=== PATIENT | female | born 1970 | race Hispanic/Latino ===

== ENCOUNTER 2017-07-26 16:41 | Emergency (ER) | payer MEDICARE ==
[~2017-07-26] VITALS: Ht 167.6 cm; Wt 81.6 kg
--- OUTSIDE RECORDS SUMMARY | 2017-07-26 16:44 | XMS REPORT ---
Author [facility] [place] Address Unknown Phone Unavailable Care Team Providers Care Behavioral Health Therapist Name Role Phone Unavailable Unavailable Problems This patient has no known problems. Allergies, Adverse Reactions, Alerts This patient has no known allergies or adverse reactions. Medications This patient has no known medications. Encounters Start Date/Time End Date/Time Encounter Type Admission Type Attending [facility] Facility Care Department Encounter ID 2017-08-04 00:00:00 2017-08-04 00:00:00 Outpatient [facility] [id number] 2017-05-26 09:26:28 2017-05-26 09:26:28 Outpatient [facility] [id number] 2017-03-03 08:28:53 2017-03-03 08:28:53 Outpatient [facility] [id number] 2016-12-09 11:25:09 2016-12-09 11:25:09 Outpatient [facility] [id number] 2016-11-18 00:00:00 2016-11-18 00:00:00 Outpatient [facility] [id number] 2016-09-23 10:20:10 2016-09-23 10:20:10 Outpatient [facility] [id number]
--- OUTSIDE RECORDS SUMMARY | 2017-07-26 16:44 | XMS REPORT ---
Author Author Admin, Lucile Organization [facility] Address Unknown Phone Unavailable Allergies, Adverse Reactions, Alerts Allergy Name Reaction Description Start Date Severity Status Provider No Known Allergies Yesenia Salcido MA Conditions or Problems Problem Name Problem Code Onset Date Status Entry Date Provider Comment Standard Description Annotate Headache 784.0 Active Allyson Arita MD Headache Mammogram, Screening V76.12 Active Sriram Clarke MD Other screening mammogram Arthritis 716.90 Active Sriram Clarke MD Arthropathy, unspecified, site unspecified Rash 782.1 Active Loida Abraham MD Rash and other nonspecific skin eruption Abdominal pain 789.00 Active Loida Abraham MD Abdominal pain, unspecified site Routine gynecological exam V72.3 Active Loida Abraham MD Special investigations and examinations - Gynecological examination Vitamin D deficiency 268.9 Active Loida Abrahma MD Unspecified vitamin D deficiency Positive rheumatoid factor 796.4 Active Loida Abraham MD Other abnormal clinical findings Joint pain 719.40 Active Loida Abraham MD Pain in joint, site unspecified Knee joint pain, right 719.46 Active Loida Abraham MD Pain in joint involving lower leg Muscle spasm of neck 728.85 Active Sriram Clarke MD Spasm of muscle Pain, abdominal, right lower quadrant 789.03 Active Milton Perez [employer] Abdominal pain, right lower quadrant Family stress V61.9 Active Allyson Arita MD Unspecified family circumstance ANNUAL EXAM V70.0 Active Allyson Arita MD Routine general medical examination at a health care facility FAMILY PLANNING V25.09 Active Allyson Arita MD Encounter for other general counseling and advice on contraceptive management GERD 530.81 Active Allyson Arita MD Esophageal reflux MENOMETRORRHAGIA 626.2 Active Allyson Arita MD Excessive or frequent menstruation RHINOSINUSITIS, ALLERGIC 477.9 Active Allyson Arita MD Allergic rhinitis, cause unspecified ASCUS PAP 795.01 Active Fern Dietrich M.D. Papanicolaou smear of cervix with atypical squamous cells of undetermined significance (ASC-US) HYPERLIPIDEMIA 272.4 Active Fern Dietrich M.D. Other and unspecified hyperlipidemia OBESITY 278.00 Active Fern Dietrich M.D. Obesity , unspecified Incisional hernia, abdominal 553.21 Active Loida Abraham MD Incisional hernia without mention of obstruction or gangrene Anxiety 300.00 04/2009 Active Sriram Clarke MD Anxiety state, unspecified Dysuria ICD-788.1 Inactive Sriram Clarke MD UTI ICD-599.0 Inactive Sriram Clarke MD SCREENING, BREAST CANCER, UNSPECIFIED ICD-V76.10 Inactive Sriram Clarke MD ABNORMAL LIVER ENZYMES ICD-794.8 Inactive Sriram Clarke MD HYPOKALEMIA ICD-276.8 Inactive Sriram Clarke MD 2016 WELL WOMAN V72.31 Inactive Fern Murra Kenneth.Neena Routine gynecological examination WELL WOMAN ICD-V72.31 Inactive Fern Murra M.D. WELL WOMAN V72.31 Inactive Fern Murra M.DKirill Routine gynecological examination WELL WOMAN ICD-V72.31 Inactive Fern Murra M.D. BACK PAIN ICD-724.5 Inactive Fern Murra M.D. CONTRACEPTION ICD-V25.09 Inactive Fern Murra M.D. WELL WOMAN ICD-V72.31 Inactive Fern Murra M.D. HERNIA, UMBILICAL 553.1 Inactive Fern Latishaa Kenneth.Neena Umbilical hernia without mention of obstruction or gangrene ABDOMINAL/PELVIC SWELLING MASS/LUMP UNSPEC SITE ICD-789.30 05/17 Inactive Fern Latishaa M.D. HYPERTENSION ICD-401.1 Inactive Sriram Clarke MD ANXIETY 300.00 04/2009 Inactive Fern Kaur Ma Anxiety state, unspecified HYPERLIPIDEMIA ICD-272.4 Inactive Fern Murra M.D. 10/31 HYPERTENSION ICD-401.1 Inactive Fern Murra M.D. Dysuria 788.1 Resolved Sriram Clarke MD Dysuria UTI 599.0 Resolved Sriram Clarke MD Urinary tract infection, site not specified SCREENING, BREAST CANCER, UNSPECIFIED V76.10 Resolved Sriram Clarke MD Breast screening, unspecified ABNORMAL LIVER ENZYMES 794.8 Resolved Sriram Clarke MD Nonspecific abnormal results of function study of liver HYPOKALEMIA 276.8 Resolved Sriram Clarke MD Hypopotassemia BACK PAIN 724.5 Resolved Fern Dietrich M.D. Backache, unspecified CONTRACEPTION V25.09 Resolved Fern Dietrich M.D. Encounter for other general counseling and advice on contraceptive management WELL WOMAN V72.31 Resolved Fern Dietrich M.D. Routine gynecological examination ABDOMINAL/PELVIC SWELLING MASS/LUMP UNSPEC SITE 789.30 Resolved Fern Dietrich M.D. Abdominal or pelvic swelling, mass, or lump, unspecified site HYPERTENSION 401.1 Resolved Sriram Clarke MD Benign essential hypertension HYPERLIPIDEMIA 272.4 04/2009 Resolved Fern Dietrich M.D. Other and unspecified hyperlipidemia HYPERTENSION 401.1 04/2009 Resolved Fern Dietrich M.D. Benign essential hypertension Medication List Medication Instructions Start Date Stop Date Generic Name NDC Status Provider Patient Instruction ATENOLOL 25 MG ORAL TABLET 1 by mouth every day for blood pressure - togolese label ATENOLOL 98734981873 Active Allyson Arita MD Active BENTYL 10 MG ORAL CAPSULE 1 by mouth 4 times a day as needed for stomach cramps DICYCLOMINE HCL 64522176248 Active Allyson Arita MD Active CULTURELLE ORAL CAPSULE one Po daily for digestion LACTOBACILLUS RHAMNOSUS (GG) 94206476580 Tatiana Arita MD Active CYCLOBENZAPRINE HCL 10 MG ORAL TABLET 1/2 By Mouth QHS As Needed for muscle tension. togolese label CYCLOBENZAPRINE HCL 22432082280 Tatiana Arita MD Active VITAMIN D (ERGOCALCIFEROL) 90065 UNIT ORAL CAPSULE One tablet by mouth once per week for 8 weeks ERGOCALCIFEROL 11966042447 Active Sriram Clarke MD Active TRAZODONE HCL 50 MG ORAL TABLET 1-2 by mouth nightly at bedtime as needed for sleep TRAZODONE HCL 50 MG ORAL TABLET 325981 TRAZODONE HCL Inactive CIPRO 250 MG ORAL TABLET 1 by mouth twice a day for 5 days 12/04 CIPRO 250 MG ORAL TABLET 683042 CIPROFLOXACIN HCL Inactive PRAVASTATIN SODIUM 20 MG ORAL TABLET 1 tab By Mouth QHS PRAVASTATIN SODIUM 20 MG ORAL TABLET 515837 PRAVASTATIN SODIUM Inactive MELOXICAM 15 MG ORAL TABLET 1 tab By Mouth daily As Needed for pain. MELOXICAM 15 MG ORAL TABLET 809973 MELOXICAM Inactive CYCLOBENZAPRINE HCL 5 MG ORAL TABLET 1 tablet at night as needed for muscle spasm CYCLOBENZAPRINE HCL 5 MG ORAL TABLET 578424 CYCLOBENZAPRINE HCL Inactive NAPROXEN 500 MG ORAL TABLET 1 by mouth twice a day as needed for pain and inflammation NAPROXEN 500 MG ORAL TABLET 380355 NAPROXEN Inactive ZOLOFT 25 MG ORAL TABLET 1 by mouth nightly at bedtime ZOLOFT 25 MG ORAL TABLET 031342 SERTRALINE HCL Inactive JUNEL 04/23 1-20 MG-MCG ORAL TABLET one By Mouth daily JUNEL 1/20 1-20 MG-MCG ORAL TABLET 3984099 NORETHINDRONE ACET-ETHINYL EST Inactive AZITHROMYCIN 250 MG ORAL TABLET 2 tablets by mouth on day one then one tablet by mouth each day for a total of 5 days AZITHROMYCIN 250 MG ORAL TABLET 863861 AZITHROMYCIN Inactive NASACORT ALLERGY 24HR 55 MCG/ACT NASAL AEROSOL 2 sprays in each nostril daily NASACORT ALLERGY 24HR 55 MCG/ACT NASAL AEROSOL 9118162 TRIAMCINOLONE ACETONIDE Inactive LOVASTATIN 10 MG ORAL TABLET 1 by mouth every night LOVASTATIN 10 MG ORAL TABLET 732987 LOVASTATIN Inactive NEXIUM 40 MG ORAL CAPSULE DELAYED RELEASE 1 by mouth daily 06/06 NEXIUM 40 MG ORAL CAPSULE DELAYED RELEASE 828510 ESOMEPRAZOLE MAGNESIUM Inactive LOPID 600 MG ORAL TABLET 1 by mouth twice a day LOPID 600 MG ORAL TABLET 974049 GEMFIBROZIL Inactive NAPROSYN 500 MG ORAL TABLET 1 by mouth twice a day As Needed pain. NAPROSYN 500 MG ORAL TABLET 162185 NAPROXEN Inactive PRINZIDE 10-12.5 MG TABS 1 By Mouth qd PRINZIDE 10- 12.5 MG TABS LISINOPRIL-HYDROCHLOROTHIAZIDE Inactive AMITRIPTYLINE HCL 10 MG ORAL TABLET 1 by mouth nightly at bedtime AMITRIPTYLINE HCL 10 MG ORAL TABLET 578130 AMITRIPTYLINE HCL Inactive PRINZIDE 10-12.5 MG TABS By Mouth Every Day PRINZIDE 10-12.5 MG TABS LISINOPRIL-HYDROCHLOROTHIAZIDE Inactive TRAZODONE HCL 50 MG ORAL TABLET 1-2 by mouth nightly at bedtime as needed for sleep TRAZODONE HCL 24985443543 No Longer Active Allyson Arita MD Active CIPRO 250 MG ORAL TABLET 1 by mouth twice a day for 5 days 12/04 CIPROFLOXACIN HCL 32923606633 No Longer Active Loida Abraham MD Active PRAVASTATIN SODIUM 20 MG ORAL TABLET 1 tab By Mouth [facility] PRAVASTATIN SODIUM 15116329207 No Longer Active Sriram Clarke MD Active MELOXICAM 15 MG ORAL TABLET 1 tab By Mouth daily As Needed for pain. MELOXICAM 72685123637 No Longer Active Allyson Arita MD Active CYCLOBENZAPRINE HCL 5 MG ORAL TABLET 1 tablet at night as needed for muscle spasm CYCLOBENZAPRINE HCL 01994604949 No Longer Active Loida Abraham MD Active NAPROXEN 500 MG ORAL TABLET 1 by mouth twice a day as needed for pain and inflammation NAPROXEN 83715279995 No Longer Active Loida Abraham MD Active ZOLOFT 25 MG ORAL TABLET 1 by mouth nightly at bedtime SERTRALINE HCL 38164333570 No Longer Active Loida Abraham MD Active JUNEL 04/23 1-20 MG-MCG ORAL TABLET one By Mouth daily NORETHINDRONE ACET-ETHINYL EST 09538216872 No Longer Active Loida Abraham MD Active AZITHROMYCIN 250 MG ORAL TABLET 2 tablets by mouth on day one then one tablet by mouth each day for a total of 5 days AZITHROMYCIN 60336419909 No Longer Active Allyson Arita MD Active NASACORT ALLERGY 24HR 55 MCG/ACT NASAL AEROSOL 2 sprays in each nostril daily TRIAMCINOLONE ACETONIDE 33981910183 No Longer Active Loida Abraham MD Active LOVASTATIN 10 MG ORAL TABLET 1 by mouth every night LOVASTATIN 52537915666 No Longer Active Allyson Arita MD Active NEXIUM 40 MG ORAL CAPSULE DELAYED RELEASE 1 by mouth daily 06/06 ESOMEPRAZOLE MAGNESIUM 65561610304 No Longer Active Allyson Arita MD Active LOPID 600 MG ORAL TABLET 1 by mouth twice a day GEMFIBROZIL 63663038494 No Longer Active Fern Dietrich M.D. Active NAPROSYN 500 MG ORAL TABLET 1 by mouth twice a day As Needed pain. NAPROXEN 36911449302 No Longer Active Fern Dietrich M.D. Active PRINZIDE 10-12.5 MG TABS 1 By Mouth qd LISINOPRIL- HYDROCHLOROTHIAZIDE No Longer Active Allyson Arita MD Active AMITRIPTYLINE HCL 10 MG ORAL TABLET 1 by mouth nightly at bedtime AMITRIPTYLINE HCL 65127630282 No Longer Active Fern Dietrich M.D. Active PRINZIDE 10-12.5 MG TABS By Mouth Every Day LISINOPRIL-HYDROCHLOROTHIAZIDE 87832707421 No Longer Active Fern Dietrich M.D. Active Advance Directives Directive Description Start Date DISCUSSED - NO DECISION MADE Immunizations Vaccine Administration Date Value Standard Description dT (Diphtheria and Tetanus) immunization for children, #1 transcribed from official record Td(adult) unspecified formulation Vital Signs Date Name Value Unit Range Description blood pressure, diastolic 90 mm[Hg] BP neal blood pressure, systolic 138 mm[Hg] BP sys height E&M 65 [in_us] Bdy height pulse rate E&M 99 /min Heart rate temperature E&M 98.2 [degF] Body temperature weight E&M 199.13 [lb_av] Weight Measured blood pressure, diastolic 88 mm[Hg] BP neal blood pressure, systolic 127 mm[Hg] BP sys height E&M 65 [in_us] Bdy height pulse rate E&M 77 /min Heart rate temperature E&M 98.2 [degF] Body temperature weight E&M 209 [lb_av] Weight Measured blood pressure, diastolic 94 mm[Hg] BP neal blood pressure, systolic 134 mm[Hg] BP sys height E&M 65 [in_us] Bdy height pulse rate E&M 86 /min Heart rate temperature E&M 99.6 [degF] Body temperature weight E&M 203 [lb_av] Weight Measured Diagnostic Results Date Name Value Unit Range Description Lab Report: Comp. Metabolic Panel (14), Lipid Panel, Hepatitis Panel (4) - Serology hepatitis B virus core antibody, IgM, PT, serum, quantitative Negative Negative Lab Report: Comp. Metabolic Panel (14), Rheumatoid Arthritis Factor, C-R ... - Chemistry c-reactive protein, quantitative, serum 3.5 mg/L 0.0-4.9 Lab Report: CBC With Differential/Platelet, Lipid Panel, Vitamin D, 25-H ... - Serology hepatitis C antibody, serum <0.1 0.0-0.9 Lab Report: CBC With Differential/Platelet, Comp. Metabolic Panel (14), ... - Urinalysis epithelial cells, urine 0-10 /[LPF] 0 - 10 Lab Report: CBC With Differential/Platelet, Comp. Metabolic Panel (14), ... - Hematology lymphocyte count, blood, automated 2.7 X10E3/UL 10*3/mm3 0.7- 3.1 Lab Report: CBC With Differential/Platelet, Comp. Metabolic Panel (14), ... - Urinalysis pH, urine, semiquantitative 6.0 5.0-7.5 Lab Report: CBC With Differential/Platelet, Comp. Metabolic Panel (14), ... - Chemistry urea nitrogen, blood 13 mg/dL 6-24 Lab Report: CBC With Differential/Platelet, Comp. Metabolic Panel (14), ... - Urinalysis bilirubin, urine Negative Negative Lab Report: Comp. Metabolic Panel (14), Rheumatoid Arthritis Factor, C-R ... - Serology rheumatoid factor 16.1 [iU]/mL 0.0-13.9 Lab Report: CBC With Differential/Platelet, Comp. Metabolic Panel (14), ... - Chemistry creatinine, serum 0.65 mg/dL 0.57-1.00 lipase, serum 25 U/L [iU]/L 0-59 chloride, serum 98 mmol/L 96-106 Lab Report: CBC With Differential/Platelet, Comp. Metabolic Panel (14), ... - Hematology mean corpuscular volume, RBC 89 fL 79-97 Lab Report: CBC With Differential/Platelet, Lipid Panel, Vitamin D, 25-H ... - Chemistry triglyceride, serum, fasting 384 mg/dL 0-149 Lab Report: CBC With Differential/Platelet, Comp. Metabolic Panel (14), ... - Hematology erythrocyte (RBC) count 4.52 X10E6/UL 10*6/mm3 3.77-5.28 Lab Report: CBC With Differential/Platelet, Comp. Metabolic Panel (14), ... - Chemistry Estimated Glomerular Filtration Rate (calc) 106 mL/min/1.73m2 > 59 Lab Report: CBC With Differential/Platelet, Comp. Metabolic Panel (14), ... - Hematology platelet count 293 X10E3/UL 10*3/mm3 150-379 Lab Report: CBC With Differential/Platelet, Comp. Metabolic Panel (14), ... - Urinalysis appearance, urine Clear Clear Lab Report: TSH+Free T4, CBC With Differential/Platelet, Comp. Metabolic ... - Serology HIV-1/HIV-2 Ab, serum Non Reactive Non Reactive Lab Report: CBC With Differential/Platelet, Comp. Metabolic Panel (14), ... - Hematology red blood cell distribution width 13.3 % 12.3-15.4 Lab Report: CBC With Differential/Platelet, Comp. Metabolic Panel (14), ... - Chemistry protein, total, serum 7.6 g/dL 6.0-8.5 Lab Report: CBC With Differential/Platelet, Lipid Panel, Vitamin D, 25-H ... - Chemistry HDL cholesterol, serum 44 mg/dL >39 Lab Report: UA/M w/rflx Culture, Routine, Microscopic Examination, UA/M ... - Urinalysis mucus on urinalysis Present Not Estab. Lab Report: CBC With Differential/Platelet, Comp. Metabolic Panel (14), ... - Chemistry specific gravity, body fluid 1.014 1.005-1.030 Lab Report: CBC With Differential/Platelet, Comp. Metabolic Panel (14), ... - Urinalysis glucose, urine, semiquantitative Negative Negative Lab Report: CBC With Differential/Platelet, Comp. Metabolic Panel (14), ... - Chemistry albumin/globulin ratio, serum 1.3 1.2-2.2 Lab Report: CBC With Differential/Platelet, Comp. Metabolic Panel (14), ... - Hematology eosinophils as percent of blood leukocytes 3 % Not Estab. Lab Report: CBC With Differential/Platelet, Comp. Metabolic Panel (14), ... - Chemistry Absolute Neutrophils 5.3 X10E3/UL 10*3/uL 1.4-7.0 Lab Report: CBC With Differential/Platelet, Comp. Metabolic Panel (14), ... - Hematology basophil count, absolute 0.0 x10E3/uL 0.0-0.2 Lab Report: CBC With Differential/Platelet, Lipid Panel, Vitamin D, 25-H ... - Chemistry hepatitis B surface antigen Negative Negative Lab Report: CBC With Differential/Platelet, Comp. Metabolic Panel (14), ... - Chemistry alanine aminotransferase (SGPT), serum 27 U/L 0-32 Lab Report: CMP14+LP+2AC+CBC/D/Plt - Chemistry LDL/HDL ratio, serum 3.2 ratio units 0.0-3.2 Lab Report: CBC With Differential/Platelet, Lipid Panel, Vitamin D, 25-H ... - Chemistry LDL cholesterol, serum 109 mg/dL 0-99 Office Visit: Acute Visit dysuira, HLP, perimenopause - Urinalysis nitrite, urine, semiquantitative negative Lab Report: CBC With Differential/Platelet, Comp. Metabolic Panel (14), ... - Hematology monocytes as percent of blood leukocytes 7 % Not Estab. Lab Report: Pap IG, rfx HPV ASCU, HPV, high-risk - Lab Human Papillomavirus test result Negative Negative Lab Report: Urine Culture, Routine, Result - Urinalysis urine culture Escherichia coli Lab Report: CBC With Differential/Platelet, Lipid Panel, Vitamin D, 25-H ... - Chemistry cholesterol, serum 230 mg/dL 100-199 Lab Report: CBC With Differential/Platelet, Comp. Metabolic Panel (14), ... - Basic Occult Blood, urine 1+ Negative Lab Report: CBC With Differential/Platelet, Comp. Metabolic Panel (14), ... - Hematology mean corpuscular hemoglobin concentration, RBC 33.2 G/DL % 31.5- 35.7 Lab Report: CBC With Differential/Platelet, Comp. Metabolic Panel (14), ... - Urinalysis leukocyte esterase, urine, by dipstick Negative Negative Lab Report: CBC With Differential/Platelet, Comp. Metabolic Panel (14), ... - Hematology hemoglobin, blood 13.3 g/dL 11.1-15.9 Lab Report: CBC With Differential/Platelet, Comp. Metabolic Panel (14), ... - Urinalysis urinalysis, microscopic examination See below: Lab Report: CBC With Differential/Platelet, Comp. Metabolic Panel (14), ... - Hematology leukocyte count, blood 8.9 X10E3/UL 10*3/mm3 3.4-10.8 Lab Report: CBC With Differential/Platelet, Comp. Metabolic Panel (14), ... - Urinalysis protein, urine, semiquantitative (dipstick) Negative Negative/ Trace Lab Report: CBC With Differential/Platelet, Comp. Metabolic Panel (14), ... - Hematology hematocrit, blood 40.1 % 34.0-46.6 Lab Report: Comp. Metabolic Panel (14), Lipid Panel, Hepatitis Panel (4) - Serology hepatitis A antibody, IgM Negative Negative Lab Report: CBC With Differential/Platelet, Comp. Metabolic Panel (14), ... - Chemistry globulin, serum 3.3 1.5-4.5 Lab Report: CBC With Differential/Platelet, Comp. Metabolic Panel (14), ... - Urinalysis bacteria, urine microscopy Few None seen/Few Lab Report: CBC With Differential/Platelet, Lipid Panel, Vitamin D, 25-H ... - Chemistry vitamin D 25-hydroxy, serum 16.7 ng/mL 30.0-100.0 Lab Report: CBC With Differential/Platelet, Comp. Metabolic Panel (14), ... - Chemistry thyroid stimulating hormone, serum 2.000 u[iU]/mL 0.450-4.500 albumin, serum 4.3 g/dL 3.5-5.5 Internal Correspondence: Pre-Visit Planning 12/22/12 - Other List of providers caring for patient Jayna Camacho MD, Fern Dietrich MD, Ghazala Garcia RN,Melani Quiroga MA, Melani Hair MA, Fartun Meek MA,Lewis Ramires MA, Sepideh Jimenez CTA Lab Report: CBC With Differential/Platelet, Lipid Panel, Vitamin D, 25-H ... - Chemistry very low density lipoproteins 77 mg/dL 5-40 Lab Report: CMP14+LP+2AC+CBC/D/Plt - Chemistry uric acid, serum 4.3 mg/dL 2.5-7.1 Lab Report: CBC With Differential/Platelet, Comp. Metabolic Panel (14), ... - Urinalysis urobilinogen, urine, semiquantitative (dipstick) 0.2 0.2-1.0 Lab Report: CBC With Differential/Platelet, Comp. Metabolic Panel (14), ... - Chemistry calcium, serum 9.7 mg/dL 8.7-10.2 Lab Report: CBC With Differential/Platelet, Comp. Metabolic Panel (14), ... - Hematology basophils as percent of blood leukocytes 0 % Not Estab. Lab Report: TSH+Free T4, CBC With Differential/Platelet, Comp. Metabolic ... - Chemistry thyroxine, serum, free 1.11 ng/dL 0.82-1.77 Lab Report: CBC With Differential/Platelet, Comp. Metabolic Panel (14), ... - Hematology monocyte count, blood, automated 0.6 X10E3/UL 10*3/uL 0.1-0.9 Lab Report: CBC With Differential/Platelet, Comp. Metabolic Panel (14), ... - Chemistry immature granulocytes, percentage of total cells, blood 0 % Not Estab. urea nitrogen/creatinine ratio, serum 20 9-23 Lab Report: CBC With Differential/Platelet, Comp. Metabolic Panel (14), ... - Genetics/fertility eGFR if 122 mL/min/1.73m2 >59 Lab Report: CBC With Differential/Platelet, Comp. Metabolic Panel (14), ... - Urinalysis WBC urine on microscopy 0-5 /hpf {Cells}/[HPF] 0 - 5 Lab Report: CBC With Differential/Platelet, Comp. Metabolic Panel (14), ... - Hematology lymphocytes as percent of blood leukocytes 30 % Not Estab. Lab Report: CBC With Differential/Platelet, Comp. Metabolic Panel (14), ... - Chemistry RBC, Urine 0-2 /hpf /[HPF] 0 - 2 carbon dioxide, venous blood 26 mmol/L 18-29 Lab Report: CBC With Differential/Platelet, Lipid Panel, Vitamin D, 25-H ... - Serology rapid plasma reagin antibody, serum Non Reactive Non Reactive Lab Report: Ct, Ng, Trich vag by FRANCHESCA - Lab chlamydia DNA probe Negative Negative Lab Report: Ct, Ng, Trich vag by FRANCHESCA - Microbiology Neisseria gonorrhoeae DNA probe Negative Negative Lab Report: CBC With Differential/Platelet, Comp. Metabolic Panel (14), ... - Chemistry sodium, serum 141 mmol/L 134-144 Lab Report: Comp. Metabolic Panel (14), Hemoglobin A1c, Written Authoriz ... - Chemistry hemoglobin A1C, blood, as % of total hemoglobin 5.6 % 4.8-5.6 Office Visit: Acute Visit dysuira, HLP, perimenopause - Chemistry beta HCG, urine, semiquantitative negative Lab Report: CMP14+LP+2AC+CBC/D/Plt - Chemistry phosphate, serum 3.1 mg/dL 2.5-4.5 Lab Report: CBC With Differential/Platelet, Comp. Metabolic Panel (14), ... - Chemistry alkaline phosphatase, serum 66 U/L 39-117 Lab Report: CBC With Differential/Platelet, Comp. Metabolic Panel (14), ... - Urinalysis ketones, urine, by test strip Negative Negative Lab Report: CBC With Differential/Platelet, Comp. Metabolic Panel (14), ... - Hematology Eosinophil Absolute Count 0.3 X10E3/UL 10*3/uL 0.0-0.4 Office Visit: Acute Visit dysuira, HLP, perimenopause - Urinalysis specific gravity, urine 1.005 Lab Report: CBC With Differential/Platelet, Comp. Metabolic Panel (14), ... - Hematology mean corpuscular hemoglobin, RBC 29.4 pg 26.6-33.0 Lab Report: CBC With Differential/Platelet, Comp. Metabolic Panel (14), ... - Chemistry bilirubin, serum, total <0.2 mg/dL mg/dL 0.0-1.2 Lab Report: CBC With Differential/Platelet, Comp. Metabolic Panel (14), ... - Hematology neutrophils as percent of blood leukocytes 60 % Not Estab. Lab Report: CBC With Differential/Platelet, Comp. Metabolic Panel (14), ... - Chemistry nitrate, urine Negative Negative Office Visit: Acute Visit dysuira, HLP, perimenopause - Urinalysis blood in urine (hemoglobin) by dipstick 3+ Lab Report: CBC With Differential/Platelet, Comp. Metabolic Panel (14), ... - Chemistry blood glucose, random 111 mg/dL 65-99 potassium, serum 4.0 mmol/L 3.5-5.2 aspartate aminotransferase (SGOT), serum 27 U/L 0-40 Lab Report: CBC With Differential/Platelet, Comp. Metabolic Panel (14), ... - Urinalysis urine color Yellow Yellow Lab Report: H. 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 Patient Exp Problem - 61313 Allyson Arita MD CPT-22762 [facility] 12:09:00 CDT Est Patient Detailed - 03661 Sriram Clarke MD CPT- 29809 [facility] 22:34:05 CDT Est Patient Exp Problem - 09711 Loida Abraham MD CPT-60666 [facility] 14:12:41 CDT Est Patient Exp Problem - 78803 Loida Abraham MD CPT-01758 [facility] 11:32:32 CDT Est Patient Detailed - 02306 Loida Abraham MD CPT-49035 [facility] 16:53:44 [employer]ERS SALES REPRESENTATIVE Est Patient Detailed - 64794 Loida Abraham MD CPT-40123 [facility] 17:05:19 [employer]ERS SALES REPRESENTATIVE Est Patient Exp Problem - 43447 Sriram Clarke MD CPT- 10273 [facility] 11:36:07 CDT Ofc Vst, Est Level III Milton Perez [employer] CPT-55119 [facility] 16:48:51 CDT Est Patient Exp Problem - 30848 Allyson Arita MD CPT-45409 [facility] 13:26:48 CDT Est Patient Exp Problem - 35589 Allyson Arita MD CPT-70009 [facility] 13:38:54 CDT Est Patient Exp Problem - 45541 Allyson Arita MD CPT-72883 [facility] 14:40:20 CDT Ofc Vst, Est Level II Fern Dietrich M.D. CPT-74540 [facility] 11:06:03 CDT Ofc Vst, Est Level III Fern Dietrich M.D. CPT-71717 [facility] 15:00:45 CDT Ofc Vst, Est Level IV Fern Dietrich M.D. CPT-50483 [facility] 12:39:17 [employer]ERS SALES REPRESENTATIVE Ofc Vst, Est Level II Fern Dietrich M.D. CPT-32516 [facility] 14:59:27 CDT Ofc Vst, Est Level III Fern Dietrich M.D. CPT-13018 [facility] 15:49:08 CDT Ofc Vst, Est Level IV Fern Dietrich M.D. CPT-85547 [facility] 15:12:48 [employer]ERS SALES REPRESENTATIVE Ofc Vst, Est Level III Fern Dietrich M.D. CPT-22871 [facility] 16:03:04 [employer]ERS SALES REPRESENTATIVE Ofc Vst, Est Level III Fern Dietrich M.D. CPT-97866 [facility] 15:26:43 CONTAINERS SALES REPRESENTATIVE Ofc Vst, New Level II Fern Dietrich M.D. CPT-53748 [facility] 15:21:13 CONTAINERS SALES REPRESENTATIVE New Patient Detailed - [id number] Fern Dietrich M.D. CPT- 43400 [facility] Procedures Code Procedure Name Date Entry Date Standard Description CPT-HE001 Health Education/Supportive Counseling 09:09:57 CDT CPT-34877 Urinalysis - - In House 08:43:37 CDT CPT-72878 Handling of specimen for transfer 08:43:36 CDT CPT-77991 Venipuncture 08:43:36 CDT CPT-63856 Est Patient Well Exam (40 - 64 Yrs) - 67567 08:43:32 CDT CPT-86134 Xray - Hand - InHouse 09:50:24 CDT CPT-90862 Xray - Hand - InHouse 09:51:12 CDT CPT-91818 Urinalysis - - In House 11:31:27 CDT CPT-97405 Urinalysis - Dip only - In House 11:05:33 CDT CPT-77377 Est Patient Well Exam (40 - 64 Yrs) - 79408 15:51:57 CONTAINERS SALES REPRESENTATIVE CPT-30225 Xray - Knee - 3 Views - InHouse 14:59:40 CONTAINERS SALES REPRESENTATIVE CPT-40687 Urinalysis - - In House 11:59:23 CDT CPT-71421 Urinalysis - Dip only - In House 11:59:22 CDT CPT-S4993 Oral Contraceptive pills, one cycle/ECP 13:38:54 CDT CPT-79586 Est Patient Well Exam (40 - 64 Yrs) - 85469 20:44:16 CONTAINERS SALES REPRESENTATIVE CPT-90420 Est Patient Well Exam (40 - 64 Yrs) - 49869 13:22:45 CONTAINERS SALES REPRESENTATIVE CPT-66425 Urinalysis - Dip only - In House 13:22:45 CONTAINERS SALES REPRESENTATIVE CPT-50573 Urinalysis - - In House 13:22:45 CONTAINERS SALES REPRESENTATIVE
[2017-07-26 18:10] VITALS: BP 140/81
== END 2017-07-26 18:20 | disposition home or self-care (01) ==
LOC: FSED 16:41
DX: J20.9 Acute bronchitis, unspecified (principal); J01.00 Acute maxillary sinusitis, unspecified; I10 Essential (primary) hypertension
CPT/HCPCS: 87400; 99283

== ENCOUNTER → 2017-11-28 | Outpatient (CLI) | payer MEDICARE ==
--- NOTE | 2017-11-28 08:50 | Diagnostic Imaging Report ---
PROCEDURE:US LIVER COMPARISON:CT abdomen and pelvis 08/29/2009. INDICATIONS:Elevated Liver Enzymes TECHNIQUE: Steven-scale and color doppler transverse and longitudinal images of the right upper quadrant of the abdomen were obtained. FINDINGS: Liver: 17.3 cm in length in the right mid-clavicular line. Normal parenchymal echogenicity. No masses. Main portal vein: 1.2 cm in caliber. Hepatopedal flow. Gallbladder: Surgically removed. Common Bile Duct: 0.3 cm in caliber. Right kidney: 10 cm in length. Normal renal cortical echogenicity. No solid masses or hydronephrosis. Pancreas: The visualized portions are unremarkable. Inferior vena cava: Patent Aorta: Non-aneurysmal Ascites: None in the right upper quadrant of the abdomen. CONCLUSION: Mild hepatomegaly without focal mass. Status post cholecystectomy. Dictated by: Jacoby Gallo M.D. on 11/28/2017 at 8:56 Electronically approved by: Jacoby Gallo M.D. on 11/28/2017 at 8:56
== END ==
LOC: US 07:31
PROVIDERS: ATTEND Family Medicine
DX: R74.8 Abnormal levels of other serum enzymes (principal)
CPT/HCPCS: 76705

== ENCOUNTER 2018-01-30 20:56 | Emergency (ER) | payer MEDICARE ==
[~2018-01-30] VITALS: Ht 167.6 cm; Wt 81.6 kg
--- OUTSIDE RECORDS SUMMARY | 2018-01-30 20:59 | XMS REPORT ---
Author Author Adela Cabral Organization [employer] Address Unknown Phone Unavailable Care Team Providers Care Interior Assemblies Developer Prover Name Role Phone Adela Cabral CP Unavailable Allergies, Adverse Reactions, Alerts Substance Reaction Event Type N.K.D.A. Info Not Available Non Drug Allergy Problems Problem Type Condition Code Onset Dates Condition Status Problem Umbilical hernia without obstruction and without gangrene K42.9 Active Problem Pain in joints of right hand M25.541 Active Problem Essential hypertension I10 Active Problem Generalized abdominal pain R10.84 Active Assessment Generalized abdominal pain R10.84 Active Medications Medication Code System Code Instructions Start Date End Date Status Dosage Nexium ND 08219779088 20 MG Orally Once a day Active 1 capsule Digestive Health Probiotic [facility] 54300981583 - Orally Active not defined Cyclobenzaprine HCl ND 61441323250 10 MG Orally as needed for muscle pain Active 1/2 tablet as needed Dicyclomine HCl ND 82725850519 10 MG Orally Four times a day Active 2 capsules Results Name Result Date Reference Range Unit Abnormality Flag Hemoglobin A1c ( 064075) [facility] ----Hemoglobin A1c 5.5 20170804 4.8-5.6 % [facility] panel (CMP14+LP+CBC/D/Plt+TSH) ----Cholesterol, Total 221 20170804 100-199 mg/dL H ----Triglycerides 233 20170804 0-149 mg/dL H ----HDL Cholesterol 47 20170804 >39 mg/dL ----VLDL Cholesterol V[place] 47 20170804 5-40 mg/dL H ----Hemoglobin 12.9 20170804 11.1-15.9 g/dL ----eGFR If NonAfricn Am 107 20170804 >59 mL/min/1.73 ----Hematocrit 39.2 17461392 34.0-46.6 % ----eGFR If Africn Am 123 20170804 >59 mL/min/1.73 ----BUN 10 20170804 6-24 mg/dL ----Creatinine 0.62 93405529 0.57-1.00 mg/dL ----LDL Cholesterol Calc 127 20170804 0-99 mg/dL H ----Glucose 97 20170804 65-99 mg/dL ----TSH 2.590 20170804 0.450-4.500 uIU/mL ----WBC 6.2 94671369 3.4-10.8 x10E3/uL ----RBC 4.30 06076773 3.77-5.28 x10E6/uL ----Sodium 142 20964016 134-144 mmol/L ----BUN/Creatinine Ratio 16 20170804 9-23 ----Chloride 104 92062708 96-106 mmol/L ----Immature Grans (Abs) 0.0 01936182 0.0-0.1 x10E3/uL ----Potassium 4.2 48223484 3.5-5.2 mmol/L ----Immature Granulocytes 0 78374591 Not Estab. % ----Baso (Absolute) 0.0 56379328 0.0-0.2 x10E3/uL ----Eos (Absolute) 0.2 78751130 0.0-0.4 x10E3/uL ----Monocytes(Absolute) 0.5 15260633 0.1-0.9 x10E3/uL ----Lymphs (Absolute) 2.0 64971269 0.7-3.1 x10E3/uL ----Neutrophils (Absolute) 3.6 12375401 1.4-7.0 x10E3/uL ----RDW 13.5 66458144 12.3-15.4 % ----Platelets 283 60258638 150-379 x10E3/uL ----MCH 30.0 20170804 26.6-33.0 pg ----MCHC 32.9 20170804 31.5-35.7 g/dL ----Calcium 8.7 20170804 8.7-10.2 mg/dL ----MCV 91 20170804 79-97 fL ----Protein, Total 7.4 20170804 6.0-8.5 g/dL ----Carbon Dioxide, Total 23 20170804 18-29 mmol/L ----A/G Ratio 1.2 20170804 1.2-2.2 ----Bilirubin, Total 0.3 20170804 0.0-1.2 mg/dL ----Basos 0 20170804 Not Estab. % ----Albumin 4.1 20170804 3.5-5.5 g/dL ----Globulin, Total 3.3 20170804 1.5-4.5 g/dL ----Monocytes 7 20170804 Not Estab. % ----ALT (SGPT) 29 20170804 0-32 IU/L ----Eos 3 20170804 Not Estab. % ----Neutrophils 58 20170804 Not Estab. % ----Alkaline Phosphatase 54 20170804 39-117 IU/L ----Lymphs 32 20170804 Not Estab. % ----AST (SGOT) 24 20170804 0-40 IU/L Summary Purpose [employer] Submission
--- OUTSIDE RECORDS SUMMARY | 2018-01-30 20:59 | XMS REPORT ---
Author [facility] Address Unknown Phone Unavailable Care Team Providers Care Case Resource Manager Name Role Phone KATRIN TOTH Unavailable Unavailable Problems This patient has no known problems. Allergies, Adverse Reactions, Alerts This patient has no known allergies or adverse reactions. Medications This patient has no known medications. Encounters Start Date/Time End Date/Time Encounter Type Admission Type Attending [facility] Care Facility Care Department Encounter ID 2018-04-13 00:00:00 2018-04-13 00:00:00 Outpatient [facility] [id number] 2018-01-19 08:12:21 2018-01-19 08:12:21 Outpatient [facility] [id number] 2017-10-27 08:15:56 2017-10-27 08:15:56 Outpatient [facility] [id number] 2017-08-04 08:31:04 2017-08-04 08:31:04 Outpatient [facility] [id number] 2017-05-26 09:26:28 2017-05-26 09:26:28 Outpatient [facility] [id number] 2017-03-03 08:28:53 2017-03-03 08:28:53 Outpatient [facility] [id number] 2016-12-09 11:25:09 2016-12-09 11:25:09 Outpatient [facility] [id number] 2016-11-18 00:00:00 2016-11-18 00:00:00 Outpatient [facility] [id number] 2016-09-23 10:20:10 2016-09-23 10:20:10 Outpatient [facility] [id number] Results Test Description Test Time Test Comments Text Results Atomic Results Result Comments US LIVER 2017-11-28 08:56:00 [place] [address] Patient Name: VERONICA MURRELL MR #: [id number] : 1970 Age/Sex: 47/F Req #: [id number] [facility] Physician: Ordered by: KATRIN TOTH MD, MD Report #: [id number] Location: Room/Bed: Procedure: [id number] US/US LIVER Exam Date: Exam Time: REPORT STATUS: Signed PROCEDURE: US LIVER COMPARISON: CT abdomen and pelvis 08/29/2009. INDICATIONS: Elevated Liver Enzymes TECHNIQUE: Steven-scale and color doppler transverse and longitudinal images of the right upper quadrant of the abdomen were obtained. FINDINGS: Liver: 17.3 cm in length in the right mid-clavicular line. Normal parenchymal echogenicity. No masses. Main portal vein: 1.2 cm in caliber. Hepatopedal flow. Gallbladder: Surgically removed. Common Bile Duct: 0.3 cm in caliber. Right kidney: 10 cm in length. Normal renal cortical echogenicity. No solid masses or hydronephrosis. Pancreas: The visualized portions are unremarkable. Inferior vena cava: Patent Aorta: Non-aneurysmal Ascites: None in the right upper quadrant of the abdomen. CONCLUSION: Mild hepatomegaly without focal mass. Status post cholecystectomy. Dictated by: Arabella Morfin M.D. on 11/28/2017 at 8:56 Electronically approved by: Arabella Morfin M.D. on 11/28/2017 at 8:56 Dictated By: ARABELLA MORFIN MD 5 Transcribed By: CHARLIE on 11/28/17855 COPY TO: KATRIN TOTH
[2018-01-30] MEDS ORDERED: CLONIDINE HCL 0.1 MG TAB PO ONE (22:00)
[2018-01-31 00:58] VITALS: BP 176/90
== END 2018-01-30 21:45 | disposition home or self-care (01) ==
LOC: FSED 20:56
DX: R05 Cough (principal); J20.9 Acute bronchitis, unspecified
CPT/HCPCS: 99282

== ENCOUNTER → 2018-10-23 | Outpatient (CLI) | payer MEDICARE | LOC: RAD 08:50 | PROVIDERS: ATTEND Family Medicine | DX: M79.605 Pain in left leg (principal); M79.604 Pain in right leg | CPT/HCPCS: 93970 ==

== ENCOUNTER 2019-09-06 11:29 | Inpatient (IN) | payer MEDICARE, OTHER ==
[~2019-09-06] VITALS: Ht 167.6 cm; Wt 81.6 kg
--- OUTSIDE RECORDS SUMMARY | 2019-09-06 11:32 | XMS REPORT | Clinical Summary ---
Author Author [facility] Organization [facility] Address Unknown Phone Unavailable Care Team Providers Care Automobiles Salesperson Name Role Phone PCP Unavailable Allergies Comments Active Allergy Reactions Severity Noted Date Lisinopril Cough 01/24/2013 Causes diarrhea Metformin 11/25/2014 Medications End Date Status Medication Sig Dispensed Refills Start Date Active indomethacin (INDOCIN) 50 Take 1 60 capsule 0 mg capsuleIndications: capsule by 4 Left knee pain mouth 2 times daily (with meals). Active calamine Apply to 120 mL 0 lotionIndications: affected area 5 Pruritus of skin 2 times daily. Active traMADol (ULTRAM) 50 mg Take 1 tablet 30 tablet 0 tabletIndications: Back by mouth 5 pain every 6 hours as needed for Pain. Active acetaminophen-codeine Take one to 45 tablet 0 (TYLENOL/CODEINE #3) two tablets 5 300-30 mg per po TID PRN tabletIndications: Hip pain. This pain, unspecified medication is laterality restricted to a primary doctor so no refills can be approved.. Active traMADol (ULTRAM) 50 mg Take 1 tablet 40 tablet 0 tabletIndications: Hip by mouth 5 pain, left, Leg pain, every 8 hours left as needed for Pain. Active cyclobenzaprine Take 1 tablet 30 tablet 0 12/25/19 1 (FLEXERIL) 10 mg by mouth 2 5 tabletIndications: Hip times daily pain, left, Leg pain, as needed for left Muscle Spasms. Active metFORMIN (GLUCOPHAGE-XR) Take 1 tablet 90 tablet 1 500 mg ER extended by mouth 6 release daily (with tabletIndications: breakfast). Diabetes mellitus without complication Active amLODIPine (NORVASC) 5 mg Take 1 tablet 90 tablet 1 tabletIndications: by mouth at 6 Diabetes mellitus without bedtime complication, Essential nightly. hypertension Active losartan (COZAAR) 100 mg Take 1 tablet 90 tablet 1 tabletIndications: by mouth 6 Essential hypertension every morning. Active ARIPiprazole (ABILIFY) 5 Take 1 tablet 90 tablet 0 mg tabletIndications: by mouth 0 Borderline personality daily. disorder, Moderate episode of recurrent major depressive disorder Active escitalopram oxalate Take 1 tablet 90 tablet 0 (LEXAPRO) 20 mg by mouth 0 tabletIndications: daily. Anxiety, Moderate episode of recurrent major depressive disorder Active zolpidem (AMBIEN) 10 mg Take 1 tablet 30 tablet 2 TabIndications: Insomnia, by mouth 0 unspecified type nightly at bedtime as needed for Insomnia. Active clonazePAM (KLONOPIN) 1 Take 1 tablet 60 tablet 2 mg tabletIndications: by mouth 2 0 Anxiety times daily as needed for Anxiety. 09/28/2018 Discontinued (Reorder) ARIPiprazole (ABILIFY) 5 Take 0.5 15 tablet 2 0 mg tabletIndications: tablets by 9 Borderline personality mouth daily. disorder, Moderate episode of recurrent major depressive disorder 09/28/2018 Discontinued (Reorder) clonazePAM (KLONOPIN) 0.5 Take 1 tablet 90 tablet 2 mg tabletIndications: by mouth 3 9 Anxiety times daily as needed for Anxiety. 09/28/2018 Discontinued (Reorder) zolpidem (AMBIEN) 10 mg Take 1 tablet 30 tablet 2 TabIndications: Insomnia, by mouth 9 unspecified type nightly at bedtime as needed for Insomnia. 11/23/2018 Discontinued (Reorder) ARIPiprazole (ABILIFY) 5 TAKE 1/2 TAB 45 tablet 1 mg tabletIndications: BY MOUTH 9 Borderline personality DAILY disorder, Moderate episode of recurrent major depressive disorder 11/23/2018 Discontinued (Reorder) clonazePAM (KLONOPIN) 0.5 TAKE 1 TABLET 90 tablet 1 mg tabletIndications: BY MOUTH 3 9 Anxiety TIMES DAILY NEEDED FOR ANXIETY. 11/23/2018 Discontinued (Reorder) zolpidem (AMBIEN) 10 mg Take 1 tablet 30 tablet 1 TabIndications: Insomnia, by mouth 9 unspecified type nightly at bedtime as needed for Insomnia. 01/25/2019 Discontinued (Reorder) ARIPiprazole (ABILIFY) 5 Take 1 tablet 90 tablet 0 mg tabletIndications: by mouth 9 Borderline personality daily. disorder, Moderate episode of recurrent major depressive disorder 01/25/2019 Discontinued (Reorder) clonazePAM (KLONOPIN) 0.5 Take 1 tablet 90 tablet 2 mg tabletIndications: by mouth 3 9 Anxiety times daily as needed for Anxiety. 01/01/2019 Discontinued (Duplicate Orde r) zolpidem (AMBIEN) 10 mg Take 1 tablet 30 tablet 2 TabIndications: Insomnia, by mouth 9 unspecified type nightly at bedtime as needed for Insomnia. 01/25/2019 Discontinued (Reorder) zolpidem (AMBIEN) 10 mg TAKE 1 TABLET 30 tablet 0 TabIndications: Insomnia, BY MOUTH 9 unspecified type NIGHTLY AT BEDTIME NEEDED FOR INSOMNIA. 04/19/2019 Discontinued (Reorder) clonazePAM (KLONOPIN) 0.5 Take 1 tablet 90 tablet 2 mg tabletIndications: by mouth 3 9 Anxiety times daily as needed for Anxiety. 04/19/2019 Discontinued (Reorder) zolpidem (AMBIEN) 10 mg Take 1 tablet 30 tablet 2 TabIndications: Insomnia, by mouth 9 unspecified type nightly at bedtime as needed for Insomnia. 04/18/2019 Discontinued ARIPiprazole (ABILIFY) 5 Take 1 tablet 90 tablet 0 mg tabletIndications: by mouth 9 Borderline personality daily. disorder, Moderate episode of recurrent major depressive disorder 04/16/2019 Discontinued escitalopram (LEXAPRO) 10 Take 1/2 90 tablet 0 mg tabletIndications: tablet by 9 Anxiety, Moderate episode mouth daily of recurrent major for 2 weeks, depressive disorder then 1 tablet by mouth daily. 04/19/2019 Discontinued (Alternate ther apy) escitalopram (LEXAPRO) 10 Take 1 tablet 90 tablet 0 mg tabletIndications: by mouth 0 Anxiety, Moderate episode daily. of recurrent major depressive disorder 04/19/2019 Discontinued (Reorder) ARIPiprazole (ABILIFY) 5 TAKE 1 TABLET 90 tablet 0 mg tabletIndications: BY MOUTH 0 Borderline personality EVERY DAY disorder, Moderate episode of recurrent major depressive disorder 06/28/2019 Discontinued (Reorder) escitalopram oxalate Take 1 tablet 90 tablet 0 (LEXAPRO) 20 mg by mouth 0 tabletIndications: daily. Anxiety, Moderate episode of recurrent major depressive disorder 06/28/2019 Discontinued (Reorder) ARIPiprazole (ABILIFY) 5 Take 1 tablet 90 tablet 0 mg tabletIndications: by mouth 0 Borderline personality daily. disorder, Moderate episode of recurrent major depressive disorder 06/28/2019 Discontinued (Reorder) clonazePAM (KLONOPIN) 0.5 Take 1 tablet 90 tablet 2 mg tabletIndications: by mouth 3 0 Anxiety times daily as needed for Anxiety. 06/28/2019 Discontinued (Reorder) zolpidem (AMBIEN) 10 mg Take 1 tablet 30 tablet 2 TabIndications: Insomnia, by mouth 0 unspecified type nightly at bedtime as needed for Insomnia. 09/06/2019 Discontinued (Reorder) escitalopram oxalate Take 1 tablet 90 tablet 0 (LEXAPRO) 20 mg by mouth 0 tabletIndications: daily. Anxiety, Moderate episode of recurrent major depressive disorder 09/06/2019 Discontinued (Reorder) ARIPiprazole (ABILIFY) 5 Take 1 tablet 90 tablet 0 mg tabletIndications: by mouth 0 Borderline personality daily. disorder, Moderate episode of recurrent major depressive disorder 09/06/2019 Discontinued (Reorder) clonazePAM (KLONOPIN) 0.5 Take 1 tablet 90 tablet 2 mg tabletIndications: by mouth 3 0 Anxiety times daily as needed for Anxiety. 09/06/2019 Discontinued (Reorder) zolpidem (AMBIEN) 10 mg Take 1 tablet 30 tablet 2 TabIndications: Insomnia, by mouth 0 unspecified type nightly at bedtime as needed for Insomnia. 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 / repair of septum deviation) Overview: SURGERY S/p gastric bypass, umbillical hernia r epair, tonsillectomy, nasal septum straightened during nasal tumor removal Diabetes mellitus without complication 12/12/2015 Major depressive disorder, recurrent episode, moderat e 01/16/2015 Anxiety 01/16/2015 Borderline personality disorder 12/20/2013 History of suicidal tendencies 01/24/2013 Insomnia, unspecified 01/24/2013 Encounters Care Team Description Date Type Specialty Cortez Umanzor MD Borderline personality disorder; Moderate episode of recurrent major depressive disorder; Anxiety; Insomnia, unspecified type 09/06/2019 Telephonic Psychiatry Encounter Cortez Umanzor MD Anxiety; Moderate episode of recurrent major depressive disorder; Borderline personality disorder; Insomnia, unspecified type 04/19/2019 Office Visit Psychiatry Cortez Umanzor MD Borderline personality disorder; Moderate episode of recurrent major depressive disorder 04/17/2019 Refill Psychiatry Cortez Umanzor MD Anxiety; Moderate episode of recurrent major depressive disorder 04/15/2019 Refill Psychiatry Cortez Umanzor MD Anxiety; Insomnia, unspecified type; Borderline personality disorder; Moderate episode of recurrent major depressive disorder 01/25/2019 Office Visit Psychiatry Cortez Umanzor MD Insomnia, unspecified type 01/01/2019 Refill Psychiatry Cortez Uamnzor MD Borderline personality disorder; Moderate episode of recurrent major depressive disorder; Anxiety; Insomnia, unspecified type 11/23/2018 Office Visit Psychiatry Cortez Umanzor MD Borderline personality disorder; Moderate episode of recurrent major depressive disorder; Anxiety; Insomnia, unspecified type 09/28/2018 Refill Psychiatry after 09/05/2018 Immunizations Name Administration Dates Next Due Influenza Vaccine 12/31/2005 Ketorolac 30mg/1ml Inj 09/25/2013 (x ) PPD 02/21/2006 Pneumoccoccal 07/15/2014 Family History Medical History Relation Name Comments Hypertension Brother Psychiatry Brother Diabetes Father Heart Father Hypertension Father Diabetes Maternal Grandfather Diabetes Maternal Grandmother Stroke Maternal Grandmother Arthritis Mother Asthma Mother Cancer Mother Diabetes Mother Hypertension Mother Pulmonary Mother Cancer Sister Diabetes Sister Hypertension Sister Relation Name Status Comments Brother Alive Brother Father Maternal Grandfather Maternal Grandmother Mother Paternal Grandfather Paternal Grandmother Sister Sister Social History Date Tobacco Use Types Packs/Day Years Used Never Smoker Smokeless Tobacco: Never Used Tobacco Cessation: Counseling Given: Yes Drinks/Week oz/Week Comments Alcohol Use No Food Insecurity Answer Date Recorded Within the past 12 months, you worried that your Never paulette e 07/06/2018 food would run out before you got money to buy more. Within the past 12 months, the food you bought Never true 07/06/2018 just didn't last and you didn't have mo shan to get more. Sex Assigned at Date Recorded Not on file Industry Job Start Date Occupation Not on file Not on file Not on file Travel End Travel History Travel Start No recent travel history available. Date Recorded COVID-19 Exposure Response 09/04/2019 10:22 AM CDT In the last month, have you been in contact with No / Unsure someone who was confirmed or suspected to have Coronavirus / COVID-19? Last Filed Vital Signs Reading Time Taken Comments Vital Sign 136/90 04/19/2019 8:15 AM RIP SAW OPERATOR Blood Pressure 67 04/19/2019 8:15 AM RIP SAW OPERATOR Pulse 36.8 C (98.2 F) 04/19/2019 8:15 AM RIP SAW OPERATOR Temperature 18 04/19/2019 8:15 AM RIP SAW OPERATOR Respiratory Rate - - Oxygen Saturation - - Inhaled Oxygen Concentration 101.6 kg (224 lb) 04/19/2019 8:15 AM RIP SAW OPERATOR Weight 167.6 cm (5' 6") 04/19/2019 8:15 AM RIP SAW OPERATOR Height 36.15 04/19/2019 8:15 AM RIP SAW OPERATOR Body Mass Index Plan of Treatment Care Team Description Date Type Specialty Cortez Umanzor MD [address] [facility] [id number] [place] [address] 2 month follow up appointment 11/22/2019 Office Visit Psychiatry Health Maintenance Due Date Last Done Comments DM Retinal Exam (Yearly) 06/18/1987 Breast Cancer Scrn 10/04/2015 10/03/2014 (Yearly) DM Foot Exam (Yearly) 12/10/2016 12/11/2015, 07/03 DM HGBA1C (Yearly) 12/10/2016 12/11/2015, 015, 05/23/2014, Additional history exists Cervical Cancer Scrn (3 02/25/2017 02/25/2014 Yrs) Colorectal Cancer Scrn 06/18/2019 Annual (FIT/FOBT) Age 50 to 75 Results Not on fileafter 09/05/2018 Insurance Type Payer Benefit Subscriber ID Effective Phone Address Plan / Dates Group MEDICARE MEDICARE xxxxxxxxxxx 2016-P [phone] [id number] [place] [address] [place] [id number] xxxxxxxxx 2016-P [phone] [id number] MEDICARE [place], [place] BENEF[place]AR [id number] Y
--- OUTSIDE RECORDS SUMMARY | 2019-09-06 11:32 | XMS REPORT | Clinical Summary ---
Author Author [facility] Address Unknown Phone Unavailable Care Team Providers Care Physics Technician Name Role Phone PCP Unavailable Allergies Not on File Medications Not on file Active Problems Not on file Social History Date Tobacco Use Types Packs/Day Years Used Never Assessed Sex Assigned at Date Recorded Not on file Industry Job Start Date Occupation Not on file Not on file Not on file Travel End Travel History Travel Start No recent travel history available. Last Filed Vital Signs Not on file Plan of Treatment Not on file Results Not on fileafter 09/05/2018
--- OUTSIDE RECORDS SUMMARY | 2019-09-06 11:33 | XMS REPORT | Summary of Care ---
Author Author [facility] Organization [facility] Address Unknown Phone Unavailable Encounter FLORA Gates(STEPHEN) [id number] Date(s): 09/07/16 - 09/10/16 Formerly [facility] [address] [place] [address]- Discharge Disposition: Home or Self Care Attending Physician: Shiva Mcclure MD Admitting Physician: Shiva Mcclure MD Vital Signs 1 2 3 Most recent to oldest [Reference Range]: 167.64 cm (09/08/16 4:43 AM) 167.64 cm (09/07/16 11:30 PM) Height 98.8 DegF (09/10/16 11:46 AM) 98.3 DegF (09/10/16 7:58 AM) 98.0 DegF (09/10/16 4:00 AM) Temperature Oral [96.4-99.1 DegF] 186/97 mmHg *HI* (09/10/16 11:46 AM) 141/79 mmHg *HI* (09/10/16 7:58 AM) 112/74 mmHg (09/10/16 4:00 AM) Blood Pressure [90-140/60-90 mmHg] 18 BRMIN (09/10/16 11:46 AM) 18 BRMIN (09/10/16 7:58 AM) 18 BRMIN (09/10/16 4:00 AM) Respiratory Rate [14-20 BRMIN] 54 bpm *LOW* (09/10/16 11:46 AM) 47 bpm *LOW* (09/10/16 7:58 AM) 48 bpm *LOW* (09/10/16 4:00 AM) Peripheral Pulse Rate [60-100 bpm] 88.182 kg (09/08/16 4:43 AM) 88.182 kg (09/07/16 11:30 PM) Weight 31.38 m2 (09/08/16 4:43 AM) 31.38 m2 (09/07/16 11:30 PM) Body Mass Index Problem List Condition Effective Dates Status Health Status Informan t Anxiety(Confirmed) Active Diabetes(Confirmed) Active HLD Active (hyperlipidemia)(Con firmed) HTN Active (hypertension)(Confi rmed) Bipolar Active disorder(Confirmed) Nausea(Confirmed) Active Allergies, Adverse Reactions, Alerts Substance Reaction Severity Status lisinopril Active Medications acetaminophen-hydrocodone 325 mg-5 mg oral tablet 1 tab, Route: PO, Drug Form: TAB, Dosing Weight 88.182, kg, Q4H, PRN Pain Score 4-6, Start date: 09/08/16 4:47:00 CDT, Duration: 30 day, Stop date: 10/08/16 4:4 6:00 CDT Notes: (Same as: Assaria 325/5) Do not exceed 4gm/day of acetaminophen. Start Date: 09/08/16 Stop Date: 09/10/16 Status: Discontinued amLODIPine 5 mg, 1 tab, Route: PO, Drug form: TAB, Bedtime, Dosing Weight 88.182, kg, Start date: 09/08/16 21:00:00 CDT, Duration: 30 day, Stop date: 10/07/16 21:00:00 CDT Notes: (Same as: Brice) Start Date: 09/08/16 Stop Date: 09/08/16 Status: Canceled amLODIPine 10 mg, 2 tab, Route: PO, Drug form: TAB, Daily, Dosing Weight 88.182, kg, Priori ty: NOW, Start date: 09/08/16 14:24:00 CDT, Duration: 30 day, Stop date: 7 9:00:00 CDT Notes: (Same as: Brice) Start Date: 09/08/16 Stop Date: 09/10/16 Status: Discontinued amLODIPine 10 mg oral tablet 10 mg = 1 tab, PO, Daily, # 90 tab, 1 Refill(s), Pharmacy: [facility] [id number] Start Date: 09/10/16 Status: Ordered atenolol 50 mg oral tablet 50 mg = 1 tab, PO, BID, # 60 tab, 2 Refill(s), Pharmacy: [id number] Start Date: 09/10/16 Status: Ordered atenolol 50 mg oral tablet 50 mg, 1 tab, Route: PO, Drug form: TAB, BID, Dosing Weight 88.182, kg, Priority : NOW, Start date: 09/08/16 14:24:00 CDT, Duration: 30 day, Stop date: 10/08/16 9:00:00 CDT Notes: (Same As:Tenormin) Start Date: 09/08/16 Stop Date: 09/10/16 Status: Discontinued cloNIDine 0.1 mg oral tablet 0.2 mg, 2 tab, Route: PO, Drug form: TAB, BID, Dosing Weight 88.182, kg, Start d ate: 09/08/16 17:00:00 CDT, Stop date: 10/08/16 9:00:00 CDT Notes: (Same As: Catapres) Start Date: 09/08/16 Stop Date: 09/10/16 Status: Discontinued cloNIDine 0.1 mg oral tablet 0.1 mg = 1 tab, PO, BID, to use if sbp>140, # 60 tab, 2 Refill(s), Pharmacy: [facility] [id number] Start Date: 09/10/16 Status: Ordered Dextrose 50% Syringe 12.5 gm, 25 mL, Route: IVP, Drug Form: INJ, Dosing Weight 88.182, kg, PRN, PRN B lood Glucose Results, Start date: 09/08/16 4:49:00 CDT, Duration: 30 day, Stop d ate: 10/08/16 4:48:00 CDT Start Date: 09/08/16 Stop Date: 09/10/16 Status: Discontinued Dextrose 50% Syringe 25 gm, 50 mL, Route: IVP, Drug Form: INJ, Dosing Weight 88.182, kg, PRN, PRN Blo od Glucose Results, Start date: 09/08/16 4:49:00 CDT, Duration: 30 day, Stop subhash e: 10/08/16 4:48:00 CDT Start Date: 09/08/16 Stop Date: 09/10/16 Status: Discontinued glucagon 1 mg, Route: IM, Drug form: PDR/INJ, PRN, Dosing Weight 88.182, kg, PRN Blood Gl ucose Results, Start date: 09/08/16 4:49:00 CDT, Duration: 30 day, Stop date: 4:48:00 CDT Start Date: 09/08/16 Stop Date: 09/10/16 Status: Discontinued Humalog 8 unit, Route: SUB-Q, TID-Before Meals, Dosing Weight 88.182, kg, Start date: 16:30:00 CDT, Duration: 30 day, Stop date: 10/08/16 11:30:00 CDT Start Date: 09/08/16 Stop Date: 09/08/16 Status: Deleted insulin aspart 4 unit, 0.04 mL, Route: SUB-Q, Drug form: SOLN, Sliding Scale, Dosing Weight 88. 182, kg, PRN Blood Glucose Results, Start date: 09/08/16 4:49:00 CDT, Duration: 30 day, Stop date: 10/08/16 4:48:00 CDT Notes: Roll in palms of hands gently; Do not shake vigorously. (Same as: Trae Hair)"single patient use only"WASTE: F/P - Black; E - Municipal Trash Bin Stable f or 28 days at room temperature.Expires in days from Date Start Date: 09/08/16 Stop Date: 09/10/16 Status: Discontinued insulin aspart 2 unit, 0.02 mL, Route: SUB-Q, Drug form: SOLN, Sliding Scale, Dosing Weight 88. 182, kg, PRN Blood Glucose Results, Start date: 09/08/16 4:49:00 CDT, Duration: 30 day, Stop date: 10/08/16 4:48:00 CDT Notes: Roll in palms of hands gently; Do not shake vigorously. (Same as: Trae Hair)"single patient use only"WASTE: F/P - Black; E - Municipal Trash Bin Stable f or 28 days at room temperature.Expires in days from Date Start Date: 09/08/16 Stop Date: 09/10/16 Status: Discontinued insulin aspart 6 unit, 0.06 mL, Route: SUB-Q, Drug form: SOLN, Sliding Scale, Dosing Weight 88. 182, kg, PRN Blood Glucose Results, Start date: 09/08/16 4:49:00 CDT, Duration: 30 day, Stop date: 10/08/16 4:48:00 CDT Notes: Roll in palms of hands gently; Do not shake vigorously. (Same as: NovoIVÁN Hiar)"single patient use only"WASTE: F/P - Black; E - Municipal Trash Bin Stable f or 28 days at room temperature.Expires in days from Date Start Date: 09/08/16 Stop Date: 09/10/16 Status: Discontinued insulin aspart 10 unit, 0.1 mL, Route: SUB-Q, Drug form: SOLN, Sliding Scale, Dosing Weight 88. 182, kg, PRN Blood Glucose Results, Start date: 09/08/16 4:49:00 CDT, Duration: 30 day, Stop date: 10/08/16 4:48:00 CDT Notes: Roll in palms of hands gently; Do not shake vigorously. (Same as: NovoIVÁN Hair)"single patient use only"WASTE: F/P - Black; E - Municipal Trash Bin Stable f or 28 days at room temperature.Expires in days from Date Start Date: 09/08/16 Stop Date: 09/10/16 Status: Discontinued insulin aspart 8 unit, 0.08 mL, Route: SUB-Q, Drug form: SOLN, Sliding Scale, Dosing Weight 88. 182, kg, PRN Blood Glucose Results, Start date: 09/08/16 4:49:00 CDT, Duration: 30 day, Stop date: 10/08/16 4:48:00 CDT Notes: Roll in palms of hands gently; Do not shake vigorously. (Same as: NovoIVÁN Hair)"single patient use only"WASTE: F/P - Black; E - Municipal Trash Bin Stable f or 28 days at room temperature.Expires in days from Date Start Date: 09/08/16 Stop Date: 09/10/16 Status: Discontinued insulin aspart 8 unit, 0.08 mL, Route: SUB-Q, Drug form: SOLN, TID-Before Meals, Start date: 16:30:00 CDT, Duration: 30 day, Stop date: 10/08/16 11:30:00 CDT Notes: Roll in palms of hands gently; Do not shake vigorously. (Same as: Trae Hair)"single patient use only"WASTE: F/P - Black; E - Municipal Trash Bin Stable f or 28 days at room temperature.Expires in days from Date Start Date: 09/08/16 Stop Date: 09/10/16 Status: Discontinued Insulin Aspart 100 unit/ml - (Starting CD) 8 unit, SUB-Q, TID-Before Meals, # 30 mL, 0 Refill(s), Pharmacy: [facility] [id number] Start Date: 09/10/16 Status: Ordered insulin detemir 8 unit, 0.08 mL, Route: SUB-Q, Drug form: SOLN, Bedtime, Start date: 09/08/16 21 :00:00 CDT, Duration: 30 day, Stop date: 10/07/16 21:00:00 CDT Notes: Same as May not hold insulin without contacting prescriberWASTE: F/ P - Black; E - Municipal Trash Bin "single patient use only" Start Date: 09/08/16 Stop Date: 09/10/16 Status: Discontinued insulin detemir 100 units/mL subcutaneous solution 8 unit, SUB-Q, Bedtime, # 15 mL, 0 Refill(s) Start Date: 09/10/16 Status: Ordered Lantus 100 units/mL 8 unit, Route: SUB-Q, Bedtime, Dosing Weight 88.182, kg, Start date: 09/08/16 21 :00:00 CDT, Duration: 30 day, Stop date: 10/07/16 21:00:00 CDT Start Date: 09/08/16 Stop Date: 09/08/16 Status: Deleted Latuda 80 mg, Route: PO, Drug form: TAB, Daily, Dosing Weight 88.182, kg, Start date: 0 09/08/16 9:00:00 CDT, Duration: 30 day, Stop date: 10/07/16 9:00:00 CDT Start Date: 09/08/16 Stop Date: 09/10/16 Status: Discontinued Latuda 80 mg oral tablet 80 mg, PO, Daily, 0 Refill(s) Start Date: 09/10/16 Status: Ordered losartan 100 mg, 2 tab, Route: PO, Drug form: TAB, Daily, Dosing Weight 88.182, kg, Start date: 09/08/16 9:00:00 CDT, Duration: 30 day, Stop date: 10/07/16 9:00:00 CDT Notes: (Same as: Tyrel) Start Date: 09/08/16 Stop Date: 09/09/16 Status: Discontinued metoclopramide 10 mg, Route: IVP, Drug form: INJ, ONCE, Dosing Weight 88.182, kg, Priority: STA T, Start date: 09/08/16 2:44:00 CDT, Stop date: 09/08/16 2:44:00 CDT Start Date: 09/08/16 Stop Date: 09/08/16 Status: Completed morphine Sulfate 4 mg, 1 mL, Route: IVP, Drug form: SOLN, Q4H, Dosing Weight 88.182, kg, PRN Pain Score 7-10, Start date: 09/08/16 4:47:00 CDT, Duration: 30 day, Stop date: 10/18 4:46:00 CDT Notes: (Same as:MORPhine Sulfate) Start Date: 09/08/16 Stop Date: 09/10/16 Status: Discontinued morphine Sulfate 4 mg, Route: IVP, ONCE, Dosing Weight 88.182, kg, Priority: STAT, Start date: 0:49:00 CDT, Stop date: 09/08/16 0:49:00 CDT Start Date: 09/08/16 Stop Date: 09/08/16 Status: Completed Nurse pls bring pt's own med: Latuda to pharmacy Nurse pls bring pt's own med: Latuda to pharmacy, reminder, Drug form: MISC, Gisselle te: CHRISSIE CORTES, 09/08/16 8:00:00 CDT, Duration: 30 day, Stop date: 10/08/16 0: 00:00 CDT Start Date: 09/08/16 Stop Date: 09/10/16 Status: Discontinued ondansetron 4 mg, 2 mL, Route: IVP, Drug form: INJ, Q6H, Dosing Weight 88.182, kg, PRN Nause a & Vomiting, Start date: 09/08/16 4:47:00 CDT, Duration: 30 day, Stop date: 10/08/16 4:46:00 CDT Notes: (Same as: Zofran) MEDICATION WASTE Product Size: 4 mgProduct Was zaida: ___ mg Start Date: 09/08/16 Stop Date: 09/10/16 Status: Discontinued Phenergan + sodium chloride 0.9% INJ 50 mL 25 mg, 1 mL, Route: IVPB, Q4H, Dosing Weight 88.182, kg, PRN as needed for nause a/vomiting, Start date: 09/08/16 5:05:00 CDT, Duration: 30 day, Stop date: 10/08 5:04:00 CDT Notes: Do not give IV push. (Same as: Phenergan) Start Date: 09/08/16 Stop Date: 09/10/16 Status: Discontinued Protonix 40 mg, Route: IVP, Drug form: INJ, Before Breakfast, Dosing Weight 88.182, kg, S tart date: 09/08/16 7:30:00 CDT, Duration: 30 day, Stop date: 10/07/16 7:30:00 C DT Notes: For IV push reconstitute with 10 ml 0.9% sodium chloride and push over 2 minutes. (Same as: Protonix) Start Date: 09/08/16 Stop Date: 09/10/16 Status: Discontinued Saline Flush 0.9% 10 ml, Route: IVP, Drug Form: INJ, Dosing Weight 88.182, kg, PRN, PRN Line Flush , Start date: 09/08/16 4:47:00 CDT, Duration: 30 day, Stop date: 10/08/16 4:46:0 0 CDT Notes: (Same as: BD Posiflush) Start Date: 09/08/16 Stop Date: 09/10/16 Status: Discontinued Sodium Chloride 0.9% (Bolus) IV 1,000 mL, Infuse Over: 1 hr, Route: IV, ONCE, Priority: STAT, Dosing Weight 88.1 82 kg, Start date: 09/08/16 2:15:00 CDT, Duration: 1 doses or times, Stop date: 09/08/16 2:15:00 CDT Start Date: 09/08/16 Stop Date: 09/08/16 Status: Completed sodium chloride 0.9% 1000 ml INJ 1,000 mL 1,000 mL, Rate: 125 ml/hr, Infuse over: 8 hr, Route: IV, Dosing Weight 88.182 kg , Total Volume: 1,000, Start date: 09/08/16 4:47:00 CDT, Duration: 30 day, Stop date: 10/08/16 4:46:00 CDT Start Date: 09/08/16 Stop Date: 09/10/16 Status: Discontinued sodium chloride 0.9% 1000 ml INJ 1,000 mL 1,000 mL, Rate: 75 ml/hr, Infuse over: 13.3 hr, Route: IV, Dosing Weight 88.182 kg, Total Volume: 1,000, Priority: STAT, Start date: 09/08/16 2:15:00 CDT, Durat ion: 1 doses or times, Stop date: 09/08/16 15:32:00 CDT Start Date: 09/08/16 Stop Date: 09/08/16 Status: Completed Zofran 4 mg, Route: IVP, Drug form: INJ, ONCE, Dosing Weight 88.182, kg, Priority: STAT , Start date: 09/08/16 0:49:00 CDT, Stop date: 09/08/16 0:49:00 CDT Start Date: 09/08/16 Stop Date: 09/08/16 Status: Completed Zofran 4 mg oral tablet 4 mg = 1 tab, PO, Q6H, PRN Nausea/Vomiting, X 8 day, # 30 tab, 0 Refill(s) Start Date: 09/09/16 Stop Date: 09/17/16 Status: Ordered zolpidem 5 mg, 1 tab, Route: PO, Drug form: TAB, Bedtime, PRN Sleep, Start date: 09/08/16 4:54:00 CDT, Duration: 30 day, Stop date: 10/08/16 4:53:00 CDT Notes: (Same As: Lucinda) Start Date: 09/08/16 Stop Date: 09/10/16 Status: Discontinued zolpidem 10 mg, Route: PO, Drug form: TAB, Bedtime, Dosing Weight 88.182, kg, PRN Sleep, Start date: 09/08/16 4:51:00 CDT, Duration: 30 day, Stop date: 10/08/16 4:50:00 CDT Start Date: 09/08/16 Stop Date: 09/08/16 Status: Deleted Results ELECTROLYTES Most recent to 1 2 3 4 oldest [Reference Range]: Sodium Lvl [135-145 139 mEq/L 137 mEq/L 140 mEq/L 140 mE q/L mEq/L] (09/10/16 5:49 AM) (09/09/16 1:42 PM) (09/09/16 3:11 AM) (09/09/16 3:11 AM) Potassium Lvl 4.1 mEq/L 5.1 mEq/L 4.5 mEq/L 4.5 mEq/L [3.5-5.1 mEq/L] (09/10/16 5:49 AM) (09/09/16 1:42 PM) (09/09/16 3:11 AM) (09/09/16 3:11 AM) Chloride Lvl [95-109 107 mEq/L 106 mEq/L 108 mEq/L 106 m Eq/L mEq/L] (09/10/16 5:49 AM) (09/09/16 1:42 PM) (09/09/16 3:11 AM) (09/09/16 3:11 AM) CO2 [24-32 mEq/L] 22 mEq/L 22 mEq/L 25 mEq/L 25 mEq/L *LOW* *LOW* (09/09/16 3:11 AM) (09/09/16 3:11 AM) (09/10/16 5:49 AM) (09/09/16 1:42 PM) AGAP [10.0-20.0 14.1 mEq/L 14.1 mEq/L 11.5 mEq/L 13.5 mEq/L mEq/L] (09/10/16 5:49 AM) (09/09/16 1:42 PM) (09/09/16 3:11 AM) (09/09/16 3:11 AM) CHEM PANEL Most recent to 1 2 3 4 oldest [Reference Range]: Creatinine Lvl 2.00 mg/dL 2.30 mg/dL 1.90 mg/dL 1.90 mg/dL [0.50-1.40 mg/dL] *HI* *HI* *HI* *HI* (09/10/16 5:49 AM) (09/09/16 1:42 PM) (09/09/16 3:11 AM) (09/09/16 3 :11 AM) eGFR 29 mL/min/1.73m2 1 25 mL/min/1.73m2 2 31 mL/min/1.7 3m2 3 31 mL/min/1.73m2 4 *NA* *NA* *NA* *NA* (09/10/16 5:49 AM) (09/09/16 1:42 PM) (09/09/16 3:11 AM) (09/09/16 3 :11 AM) BUN [7-22 mg/dL] 32 mg/dL 29 mg/dL 25 mg/dL 25 mg/dL *HI* *HI* *HI* *HI* (09/10/16 5:49 AM) (09/09/16 1:42 PM) (09/09/16 3:11 AM) (09/09/16 3 :11 AM) B/C Ratio [6-25] 16 (09/08/16 1:07 AM) Glucose Lvl [70-99 151 mg/dL 354 mg/dL 175 mg/dL 173 mg/ dL mg/dL] *HI* *HI* *HI* *HI* (09/10/16 5:49 AM) (09/09/16 1:42 PM) (09/09/16 3:11 AM) (09/09/16 3 :11 AM) Total Protein 8.5 g/dL [6.4-8.4 g/dL] *HI* (09/08/16 1:07 AM) Albumin Lvl [3.5-5.0 4.3 g/dL g/dL] (09/08/16 1:07 AM) Globulin [2.7-4.2 4.2 g/dL g/dL] (09/08/16 1:07 AM) A/G Ratio [0.7-1.6] 1.0 (09/08/16 1:07 AM) Calcium Lvl 8.7 mg/dL 8.2 mg/dL 8.7 mg/dL 8.5 mg/dL [8.5-10.5 mg/dL] (09/10/16 5:49 AM) *LOW* (09/09/16 3:11 AM) (09/09/16 3:11 AM) (09/09/16 1:42 PM) ALT [0-65 unit/L] 13 unit/L (09/08/16 1:07 AM) AST [0-37 unit/L] 9 unit/L (09/08/16 1:07 AM) Alk Phos [39-136 123 unit/L unit/L] (09/08/16 1:07 AM) Bili Total [0.2-1.3 0.5 mg/dL mg/dL] (09/08/16 1:07 AM) Lipase Lvl [73-393 96 unit/L unit/L] (09/08/16 1:07 AM) 1Result Comment: The eGFR is calculated using the CKD-EPI formula. In most young, healthy individuals the eGFR will be >90 mL/min/1.73m2. The eGFR declines with age. An eGFR of 60-89 may be normal in some populations, particularly the elderly, for whom the CKD-EPI formula has not been extensively validated. Use of the eGFR is not recommended in the following populations: Individuals with unstable creatinine concentrations, including patients and those with serious co-morbid conditions. Patients with extremes in muscle mass or diet. The data above are obtained from the National Kidney Disease Education Program ( NKDEP) which additionally recommends that when the eGFR is used in patients with extremes of body mass index for purposes of drug dosing, the eGFR should be mul tiplied by the estimated BMI. 2Result Comment: The eGFR is calculated using the CKD-EPI formula. In most young, healthy individuals the eGFR will be >90 mL/min/1.73m2. The eGFR declines with age. An eGFR of 60-89 may be normal in some populations, particularly the elderly, for whom the CKD-EPI formula has not been extensively validated. Use of the eGFR is not recommended in the following populations: Individuals with unstable creatinine concentrations, including patients and those with serious co-morbid conditions. Patients with extremes in muscle mass or diet. The data above are obtained from the National Kidney Disease Education Program ( NKDEP) which additionally recommends that when the eGFR is used in patients with extremes of body mass index for purposes of drug dosing, the eGFR should be mul tiplied by the estimated BMI. 3Result Comment: The eGFR is calculated using the CKD-EPI formula. In most young, healthy individuals the eGFR will be >90 mL/min/1.73m2. The eGFR declines with age. An eGFR of 60-89 may be normal in some populations, particularly the elderly, for whom the CKD-EPI formula has not been extensively validated. Use of the eGFR is not recommended in the following populations: Individuals with unstable creatinine concentrations, including patients and those with serious co-morbid conditions. Patients with extremes in muscle mass or diet. The data above are obtained from the National Kidney Disease Education Program ( NKDEP) which additionally recommends that when the eGFR is used in patients with extremes of body mass index for purposes of drug dosing, the eGFR should be mul tiplied by the estimated BMI. 4Result Comment: The eGFR is calculated using the CKD-EPI formula. In most young, healthy individuals the eGFR will be >90 mL/min/1.73m2. The eGFR declines with age. An eGFR of 60-89 may be normal in some populations, particularly the elderly, for whom the CKD-EPI formula has not been extensively validated. Use of the eGFR is not recommended in the following populations: Individuals with unstable creatinine concentrations, including patients and those with serious co-morbid conditions. Patients with extremes in muscle mass or diet. The data above are obtained from the National Kidney Disease Education Program ( NKDEP) which additionally recommends that when the eGFR is used in patients with extremes of body mass index for purposes of drug dosing, the eGFR should be mul tiplied by the estimated BMI. ENDOCRINOLOGY Most recent to 04 05 3 4 oldest [Reference Range]: S Preg [Negative] Negative *NA* (09/08/16 1:07 AM) URINE CHEM Most recent to 04 05 3 4 oldest [Reference Range]: U Microalb 21.5 mg/L *NA* (09/10/16 3:06 AM) U Alb/Crea [<=30.0 17.9 mcg/mg creat mcg/mg creat] (09/10/16 3:06 AM) U Creatinine 120.00 mg/dL *NA* (09/10/16 3:06 AM) U Urea 472 mg/dL *NA* (09/10/16 3:06 AM) U Sodium 48 mEq/L *NA* (09/10/16 3:06 AM) U Eos [None Seen] None Seen (09/10/16 3:06 AM) URINE AND STOOL Most recent to 1 2 3 4 oldest [Reference Range]: UA Turbidity [Clear] Clear Clear (09/10/16 3:06 AM) (09/08/16 1:07 AM) UA Color Ltyellow Ltyellow *NA* *NA* (09/10/16 3:06 AM) (09/08/16 1:07 AM) UA pH [5.0-8.0] 5.0 5.0 (09/10/16 3:06 AM) (09/08/16 1:07 AM) UA Spec Grav 1.009 1.012 [<=1.030] (09/10/16 3:06 AM) (09/08/16 1:07 AM) UA Glucose [Negative Negative mg/dL 500 mg/dL mg/dL] *NA* *ABN* (09/10/16 3:06 AM) (09/08/16 1:07 AM) UA Blood [Negative] Negative Small (09/10/16 3:06 AM) *ABN* (09/08/16 1:07 AM) UA Ketones [Negative Negative mg/dL 20 mg/dL mg/dL] *NA* *ABN* (09/10/16 3:06 AM) (09/08/16 1:07 AM) UA Protein [Negative Negative mg/dL 30 mg/dL mg/dL] (09/10/16 3:06 AM) *ABN* (09/08/16 1:07 AM) UA Urobilinogen <=1.0 mg/dL <=1.0 mg/dL [0.1-1.0 mg/dL] *NA* *NA* (09/10/16 3:06 AM) (09/08/16 1:07 AM) UA Bili [Negative] Negative Negative *NA* *NA* (09/10/16 3:06 AM) (09/08/16 1:07 AM) UA Leuk Est Trace Negative [Negative] *ABN* (09/08/16 1:07 AM) (09/10/16 3:06 AM) UA Nitrite Negative Negative [Negative] (09/10/16 3:06 AM) (09/08/16 1:07 AM) UA WBC [0-5 /HPF] 5 /HPF 2 /HPF (09/10/16 3:06 AM) (09/08/16 1:07 AM) UA RBC [0-2 /HPF] <1 /HPF 3 /HPF (09/10/16 3:06 AM) *HI* (09/08/16 1:07 AM) UA Bacteria [None Occasional /HPF Seen /HPF] *NA* (09/10/16 3:06 AM) UA Sq Epi [Few /LPF] Few /LPF Occasional /LPF *NA* *NA* (09/10/16 3:06 AM) (09/08/16 1:07 AM) UA Hyal Cast [0-2 1 /LPF /LPF] (09/08/16 1:07 AM) HEMATOLOGY Most recent to 1 2 3 4 oldest [Reference Range]: WBC [3.7-10.4 K/CMM] 6.4 K/CMM 6.8 K/CMM 7.2 K/CMM (09/10/16 5:49 AM) (09/09/16 1:42 PM) (09/09/16 3:11 AM) RBC [4.20-5.40 4.28 M/CMM 3.59 M/CMM 3.95 M/CMM M/CMM] (09/10/16 5:49 AM) *LOW* *LOW* (09/09/16 1:42 PM) (09/09/16 3:11 AM) Hgb [12.0-16.0 g/dL] 8.8 g/dL 7.4 g/dL 8.2 g/dL *LOW* *LOW* *LOW* (09/10/16 5:49 AM) (09/09/16 1:42 PM) (09/09/16 3:11 AM) Hct [36.0-48.0 %] 29.1 % 24.4 % 26.6 % *LOW* *LOW* *LOW* (09/10/16 5:49 AM) (09/09/16 1:42 PM) (09/09/16 3:11 AM) MCV [80.0-98.0 fL] 67.9 fL 67.9 fL 67.5 fL *LOW* *LOW* *LOW* (09/10/16 5:49 AM) (09/09/16 1:42 PM) (09/09/16 3:11 AM) MCH [27.0-31.0 pg] 20.6 pg 20.7 pg 20.7 pg *LOW* *LOW* *LOW* (09/10/16 5:49 AM) (09/09/16 1:42 PM) (09/09/16 3:11 AM) MCHC [32.0-36.0 30.3 g/dL 30.5 g/dL 30.6 g/dL g/dL] *LOW* *LOW* *LOW* (09/10/16 5:49 AM) (09/09/16 1:42 PM) (09/09/16 3:11 AM) RDW [11.5-14.5 %] 18.6 % 18.5 % 18.2 % *HI* *HI* *HI* (09/10/16 5:49 AM) (09/09/16 1:42 PM) (09/09/16 3:11 AM) Platelet [133-450 182 K/CMM 187 K/CMM 187 K/CMM K/CMM] (09/10/16 5:49 AM) (09/09/16 1:42 PM) (09/09/16 3:1 1 AM) MPV [7.4-10.4 fL] 9.9 fL 9.6 fL 9.4 fL (09/10/16 5:49 AM) (09/09/16 1:42 PM) (09/09/16 3:11 AM) Segs [45.0-75.0 %] 77.8 % 92.1 % *HI* *HI* (09/09/16 3:11 AM) (09/08/16 1:07 AM) Lymphocytes 14.5 % 6.2 % [20.0-40.0 %] *LOW* *LOW* (09/09/16 3:11 AM) (09/08/16 1:07 AM) Monocytes [2.0-12.0 7.1 % 1.5 % %] (09/09/16 3:11 AM) *LOW* (09/08/16 1:07 AM) Eosinophils [0.0-4.0 0.2 % %] (09/09/16 3:11 AM) Basophils [0.0-1.0 0.4 % 0.2 % %] (09/09/16 3:11 AM) (09/08/16 1:07 AM) Segs-Bands # 5.6 K/CMM 7.4 K/CMM [1.5-8.1 K/CMM] (09/09/16 3:11 AM) (09/08/16 1:07 AM) Lymphocytes # 1.0 K/CMM 0.5 K/CMM [1.0-5.5 K/CMM] (09/09/16 3:11 AM) *LOW* (09/08/16 1:07 AM) Monocytes # [0.0-0.8 0.5 K/CMM 0.1 K/CMM K/CMM] (09/09/16 3:11 AM) (09/08/16 1:07 AM) Microcyte [None 3+ 3+ Seen] *NA* *NA* (09/09/16 3:11 AM) (09/08/16 1:07 AM) Immunizations Given and Recorded Vaccine Date Status Refusal Reason influenza virus vaccine, inactivated 06/19/16 G iven pneumococcal 23-valent vaccine 06/19/16 Given Procedures Procedure Date Related Diagnosis Body Site Cholecystectomy Hernia repair Tasha-en-y gastric bypass Social History Social History Type Response Alcohol Never Smoking Status Never smoker; Exposure to T obacco Smoke None; Cigarette Smoking Last 365 Days No; Reg Smoking Cessation Counseli ng No Assessment and Plan Extracted from: Title: Clinical Document Author: Shiva Mcclure MD Date: 09/10/16 Progress Note - Daily [facility] Completed: Sep, 08:30 by Shiva Mcclure MD RM: CCDU - 03, VERONICA HARTLEY [id number] (: 1970) F Attending[facility]cl[facility] Service: [facility] Medicine Reason for Admission: ACUTE RENAL FAILURE Working DRG: None Documented Code status: None Specified=FULL CODECurrent diet: Isolation: None Documented Allergies: lisinopril SUBJECTIVE OBJECTIVE 24hr Labs 09/10 0800 Glucose [id number] H 09/10 0549 Glucose Ttr046 H BUN32 H Creatinine Lvl2.00 H Sodium Xgf583 Potassium Lvl4.1 Chloride Qix344 CO222 L AGAP14.1 Calcium Lvl8.7 eGFR29 WBC6.4 RBC4.28 Hgb8.8 L Hct29.1 L MCV67.9 L MCH20.6 L MCHC30.3 L RDW18.6 H Jwbbpdnm955 MPV9.9 09/10 0306 U Ohetpyjh02.5 U Ebzsinpfaq409.00 U Alb/Crea17.9 U Cgtsvh37 U EosNone Seen UA ColorLtyellow UA TurbidityClear UA Spec Grav1.009 UA pH5.0 UA ProteinNegative UA GlucoseNegative UA KetonesNegative UA BiliNegative UA BloodNegative UA Urobilinogen<=1.0 UA NitriteNegative UA Leuk EstTrace UA RBC<1 UA WBC5 UA BacteriaOccasional UA Sq EpiFew 09/09 2139 Glucose POC83 09/09 1612 Glucose BPK156 H 09/09 1342 Glucose Roo850 H BUN29 H Creatinine Lvl2.30 H Sodium Ykn662 Potassium Lvl5.1 Chloride Qyn360 CO222 L AGAP14.1 Calcium Lvl8.2 L eGFR25 WBC6.8 RBC3.59 L Hgb7.4 L Hct24.4 L MCV67.9 L MCH20.7 L MCHC30.5 L RDW18.5 H Iuyfzprq729 MPV9.6 09/09 1101 Glucose QDO118 H Hawk still necessary (Yes/No): Line still necessary (Yes/No): VitalsTmp(F)[id number] 09/10 07:5898.751404/279023--- 09/10 04:0098.965133/036243--- 09/09 23:1597.35885/647222--- 09/09 19:3698.092559/[id number]--- 09/09 15:3097.87932/[id number]--- 24 Hr Tmax: 99F (37.22c) at 09/09 10:40V ital Signs are the last 5 in the past 48 hours. DateWt(kg)Wt(lb)Ht(cm)Ht(in)Method 09/08 88.18 [id number] 66.00Estimated 09/07 (initial) 88.18 194.00Estimated 09/07167.64 66.00Stated I&ORecordInOutBal 09/823hr Tot 55 0 55 09/723hr Tot 156 0 156 Medications (23) Active Scheduled Meds (8): 09/08/16 amLODIPine 10 mg PO Daily 09/08/16 atenolol (atenolol 50 mg oral t ablet) 50 mg PO BID 09/08/16 cloNIDine (cloNIDine 0.1 mg ora l tablet) 0.2 mg PO BID 09/08/16 insulin aspart 8 unit SUB-Q TID -Before Meals 09/08/16 insulin detemir 8 unit SUB-Q Be dtime 0 ml/hr 09/08/16 lurasidone (Latuda) 80 mg PO Da malvin 09/08/16 non-formulary (Nurse pls bring pt's own med: Latuda to pharmacy) MISC QSHIFT 09/08/16 pantoprazole (Protonix) 40 mg I [employer] Before Breakfast Unscheduled Meds: None PRN Meds (14): 09/08/16 Dextrose 50% in Water IV (Dextr ose 50% Syringe) 12.5 gm IVP PRN 09/08/16 Dextrose 50% in Water IV (Dextr ose 50% Syringe) 25 gm IVP PRN 09/08/16 acetaminophen-hydrocodone (acet aminophen-hydrocodone 325 mg-5 mg oral tablet) 1 tab PO Q4H 09/08/16 glucagon 1 mg IM PRN 09/08/16 insulin aspart 2 unit SUB-Q Sli ding Scale 09/08/16 insulin aspart 4 unit SUB-Q Sli ding Scale 09/08/16 insulin aspart 6 unit SUB-Q Sli ding Scale 09/08/16 insulin aspart 8 unit SUB-Q Sli ding Scale 09/08/16 insulin aspart 10 unit SUB-Q Sl iding Scale 09/08/16 morphine Sulfate 4 mg IVP Q4H 09/08/16 ondansetron 4 mg IVP Q6H 09/08/16 promethazine + sodium chloride 0.9% INJ 50 mL (Phenergan + sodium chloride 0.9% INJ 50 mL) 25 mg IVPB Q4H 153 ml/hr 09/08/16 sodium chloride (Saline Flush 0 .9%) 10 ml IVP PRN 09/08/16 zolpidem 5 mg PO Bedtime One Time Meds: None Continuous Infusions (1): 09/08/16 sodium chloride 0.9% 1000 ml IN J 1,000 mL 1,000 mL 125 ml/hr ASSESSMENT & EXAM PLAN & TREATMENT DIAGNOSES & PROBLEMS [id number] Ready for Discharge (Yes/No)? TEACHING ATTESTATION Extracted from: Title: Nephrology consultation Author: Ab Rodriguez MD Date: 09/09/16 Patient: VERONICA MURRELL Age: 46 years Sex: Female : 1970 Associated Diagnoses: None Author: Ab Rodriguez MD Chief Complaint Acute kidney injury History of Present Illness 46-year-old female past medical history of gastric bypass in 2004, hypertension, diabetes, chronic anemia who came into the ED with complaints of intermittent vomiting episodes of her intractable. She reports that it occurred 2 days prior to admission she had difficulty keeping any food down. In the past she has had some esophageal stricture that required dilatation by GI. Patient denied any diarrhea fevers chills chest pain shortness of breath or any dysuria. She nearly had identical presentation in August 2016 and was evaluated by GI with MRCP which was negative. In further review patient denies any history of kidney stones, herbal supplements, any niek-teb-lnecpns medications, chronic UTIs, chronic obstruction from the urinary tract, or any body in the family with renal disease. She also denies any NSAID usage. In further review of the chart patient's creatinine is elevated due to fluctuations in blood pressure. When she came in blood pressure was in the low 200s now fluctuated into the low 100s likely etiology of her underlying elevation of creatinine. Review of Systems Pertinent positive: Nausea vomiting decreased oral intake Pertinent negative: Denies chest pain palpitations dysuria hematuria frequency urgency lightheadedness dizziness or any musculoskeletal etiology pain The rest review systems are reviewed with the patient and are negative Health Status Allergies: Allergic Reactions (Selected) Severity Not Documented Lisinopril- No reactions were documented., Allergies (1) ActiveReaction lisinoprilNone Documented Current medications: (Selected) Inpatient Medications Ordered Dextrose 50% Syringe: 12.5 gm, 25 mL, IVP, PRN, PRN: Blood Glucose Results Dextrose 50% Syringe: 25 gm, 50 mL, IVP, PRN, PRN: Blood Glucose Results Latuda: 80 mg, PO, Daily Nurse pls bring pt's own med: Latuda to pharmacy: reminder, MISC, QSHIFT Phenergan + sodium chloride 0.9% INJ 50 mL: 25 mg, 1 mL, 153 ml/hr, IVPB, Q4H, PRN: as needed for nausea/vomiting Protonix: 40 mg, IVP, Before Breakfast Saline Flush 0.9%: 10 ml, IVP, PRN, PRN: Line Flush acetaminophen-hydrocodone 325 mg-5 mg oral tablet: 1 tab, PO, Q4H, PRN: Pain Score 4-6 amLODIPine: 10 mg, 2 tab, PO, Daily atenolol 50 mg oral tablet: 50 mg, 1 tab, PO, BID cloNIDine 0.1 mg oral tablet: 0.2 mg, 2 tab, PO, BID glucagon: 1 mg, IM, PRN, PRN: Blood Glucose Results insulin aspart: 10 unit, 0.1 mL, SUB-Q, Sliding Scale, PRN: Blood Glucose Results insulin aspart: 2 unit, 0.02 mL, SUB-Q, Sliding Scale, PRN: Blood Glucose Results insulin aspart: 4 unit, 0.04 mL, SUB-Q, Sliding Scale, PRN: Blood Glucose Results insulin aspart: 6 unit, 0.06 mL, SUB-Q, Sliding Scale, PRN: Blood Glucose Results insulin aspart: 8 unit, 0.08 mL, SUB-Q, Sliding Scale, PRN: Blood Glucose Results insulin aspart: 8 unit, 0.08 mL, SUB-Q, TID-Before Meals insulin detemir: 8 unit, 0.08 mL, 0 ml/hr, SUB-Q, Bedtime morphine Sulfate: 4 mg, 1 mL, IVP, Q4H, PRN: Pain Score 7-10 ondansetron: 4 mg, 2 mL, IVP, Q6H, PRN: Nausea & Vomiting sodium chloride 0.9% 1000 ml INJ 1,000 mL: 125 ml/hr, IV, Stop: 10/08/16 4:46:00 CDT zolpidem: 5 mg, 1 tab, PO, Bedtime, PRN: Sleep Prescriptions Prescribed Zofran 4 mg oral tablet: 4 mg, 1 tab, PO, Q6H, for 8 day, PRN: Nausea/Vomiting, 30 tab, 0 Refill(s) ascorbic acid 500 mg oral tablet: 500 mg, 1 tab, PO, Daily, 30 tab, 0 Refill(s) ferrous sulfate 325 mg oral enteric coated tablet: 325 mg, 1 tab, PO, TID, 90 tab, 0 Refill(s) omeprazole 40 mg oral delayed release capsule: 40 mg, 1 cap, PO, Daily, 30 cap, 1 Refill(s) Documented Medications Documented KlonoPIN 0.5 mg oral tablet: 0.5 mg, 1 tab, PO, BID, 60 tab, 0 Refill(s) metFORMIN extended release: 500 mg, PO, BID, 0 Refill(s), Medications (23) Active Scheduled: (8) amLODIPine 5 mg TAB 10 mg 2 tab, PO, Daily atenolol 50 mg TAB 50 mg 1 tab, PO, BID cloNIDine 0.1 mg TAB 0.2 mg 2 tab, PO, BID insulin aspart 100 unit/ml 3ml Pen 8 unit 0.08 mL, SUB-Q, TID-Before Meals insulin DETEMIR 1 unit/0.01 mL INJ SYR 8 unit 0.08 mL, SUB-Q, Bedtime lurasidone 80 mg, PO, Daily Nurse pls bring pt's own med: Romanheriberto to pharmacy reminder, MISC, QSHIFT pantoprazole 40 mg INJ 40 mg, IVP, Before Breakfast Continuous: (1) sodium chloride 0.9% 1000 ml INJ 1,000 mL 1,000 mL, IV, 125 ml/hr PRN: (14) acetaminophen-hydrocodone 325 mg-5 mg tab 1 tab, PO, Q4H Dextrose 50% 50 ml INJ syringe 12.5 gm 25 mL, IVP, PRN Dextrose 50% 50 ml INJ syringe 25 gm 50 mL, IVP, PRN glucagon recombinant 1 mg PDR 1 mg, IM, PRN insulin aspart 100 unit/ml 3ml Pen 2 unit 0.02 mL, SUB-Q, Sliding Scale insulin aspart 100 unit/ml 3ml Pen 4 unit 0.04 mL, SUB-Q, Sliding Scale insulin aspart 100 unit/ml 3ml Pen 6 unit 0.06 mL, SUB-Q, Sliding Scale insulin aspart 100 unit/ml 3ml Pen 8 unit 0.08 mL, SUB-Q, Sliding Scale insulin aspart 100 unit/ml 3ml Pen 10 unit 0.1 mL, SUB-Q, Sliding Scale MORPhine sulfate PF 4 mg/mL INJ VL 4 mg 1 mL, IVP, Q4H ondansetron 4 mg/2ml INJ VL 4 mg 2 mL, IVP, Q6H promethazine 25 mg/1 ml INJ + sodium chloride 0.9% INJ 50 mL 25 mg 1 mL, IVPB, Q4H sodium chloride 0.9% 10 ml flush syr BD 10 ml, IVP, PRN zolpidem 5 mg TAB 5 mg 1 tab, PO, Bedtime Problem list: All Problems HTN (hypertension) / SNOMED CT 9071650900 / Confirmed Diabetes / SNOMED CT 318666812 / Confirmed Bipolar disorder / SNOMED CT 2931303078 / Confirmed Anxiety / SNOMED CT 3748936089 / Confirmed Nausea / SNOMED CT 6266218394 / Confirmed HLD (hyperlipidemia) / SNOMED CT 30891556 / Confirmed, Active Problems (6) Anxiety Bipolar disorder Diabetes HLD (hyperlipidemia) HTN (hypertension) Nausea Histories Past Medical History: Active HTN (hypertension) (4907384951) Diabetes (638312288) HLD (hyperlipidemia) (43019495) Bipolar disorder (9339599201) Anxiety (2267751646) Family History: High blood pressure Father Mother Heart failure Father Bipolar disorder Brother Type 2 diabetes mellitus Mother Sister Father Myeloma Mother CA - Cancer of ovary Mother Stroke Sister Heart attack Father Hepatitis Brother Kidney stone Brother Deep vein thrombosis Father Back pain Father Procedure history: Cholecystectomy (16875812). Tasha-en-y gastric bypass (3250180821). Hernia repair (42134728). Social History Social & Psychosocial Habits Alcohol 06/19/2016 Use: Never Tobacco 09/08/2016 Use: Never smoker Exposure to Tobacco Smoke None Cigarette Smoking Last 365 Days No Reg Smoking Cessation Counseling No . Physical Examination VS/Measurements Vital Signs (last 24 hrs) Last Charted Temp Oral98.6 DegF (SEP 09 19:36) Heart Rate PeripheralL 54bpm (SEP 09 19:36) Resp Rate 17 BRMIN (SEP 09 19:36) YMP989 mmHg (SEP 09 19:36) DBP77 mmHg (SEP 09 19:36) OqA8053 % (SEP 09:36) Intake and Output I/O Intake OutputBalance 09/09/20167a-3p 3.00 0.00 3.00 3p-11p 52.00 0.00 52.00 As of 22:22 11p-7a 0.00 0.00 0. 00 Totals 55.00 0.00 55.00 09/08/20167a-3p 52.00 0.00 52.00 3p-11p 104.00 0.00 104.00 11p-7a 0.00 0.00 0. 00 Totals 156.00 0.00 156.00 09/07/20167a-3p 0.00 0.00 0.00 3p-11p 0.00 0.00 0. 00 11p-7a 1052.00 0.00 1052.00 Totals 1052.00 0.00 1052.00 General: Alert and oriented, No acute distress. Eye: Pupils are equal, round and reactive to light, Extraocular movements are intact, Normal conjunctiva. HENT: Normocephalic, Oral mucosa is moist. Neck: Supple, Non-tender, No jugular venous distention, No lymphadenopathy. Respiratory: Lungs are clear to auscultation, Respirations are non-labored, Breath sounds are equal, Symmetrical chest wall expansion. Cardiovascular: Normal rate, Regular rhythm, No murmur. Gastrointestinal: Soft, Non-tender, Non-distended. Genitourinary: No costovertebral angle tenderness. Musculoskeletal Normal range of motion. Normal strength. Integumentary: Warm, Moist. Neurologic: Alert, Oriented, No focal deficits. Cognition and Speech: Oriented, Speech clear and coherent. Psychiatric: Cooperative, Appropriate mood & affect. Review / Management Results review: Labs (Last four charted values) WBC 6.8(SEP 08)7.2(SEP 08)8.1(SEP 08) Hgb L 7.4(SEP 08)L 8.2(SEP 08)L 9.5(SEP 07) Hct L 24.4(SEP 08)L 26.6(SEP 08)L 31.4(SEP 07) Plt 187(SEP 08)187(SEP 08)202(SEP 07) Na 137(SEP 08)140(SEP 08)140(SEP 08)138(SEP 07) K 5.1(SEP 08)4.5(SEP 08)4.5(SEP 08)4.3(SEP 07) CO2 L 22(SEP 08)25(SEP 08)25(SEP 08)L 23(SEP 07) Cl 106(SEP 08)106(SEP 08)108(SEP 08)106(SEP 07) Cr H 2.30(SEP 08)H 1.90(SEP 08)H 1.90(SEP 09)H 1.70(SEP 08) BUN H 29(SEP 08)H 25(SEP 08)H 25(SEP 08)H 27(SEP 07) Glucose Random H 354(SEP 08)H 173(SEP 08)H 175(SEP 08)H 309(SEP 08) Ca L 8.2(SEP 08)8.7(SEP 08)8.5(SEP 08)9.9(SEP 08). CT abdomen pelvis without contrast: IMPRESSION: 1. No acute intra-abdominal/pelvic abnor mality. 2. Splenomegaly. 3. Stable 2.5 cm right adrenal adenoma. Impression and Plan 1. Acute kidney injury likely secondary from hemodynamic changes and blood pressure 2. Anemia of chronic disease 3. Hypertension Plan: There was no contrast given, medications were reviewed and losartan was held including Protonix. In further review the patient's blood pressure was elevated in the low 200s then fluctuating down to the 90s. Patient's creatinine is likely secondary to hemodynamic changes and blood pressure fluctuations including underlying hypoxia from low hemoglobin level. Patient has no findings of chronic disease and should recover accordingly once we maintain better blood pressure readings. At this time will order renal ultrasound, urine lites: Urine sodium, chloride, urine protein to creatinine as well as microalbumin and urine eosinophils with urine with microscopy. Will adjust her blood pressure medications to maintain a higher pressure. Addendum Patient's blood pressure wa s in the 90s this evening and told nurse to hold atenolol and by Michael, clonidine. Monitor very cl luzma Romero MD on 09/09/2016 22:38
--- OUTSIDE RECORDS SUMMARY | 2019-09-06 11:33 | XMS REPORT | Summary of Care ---
Author Author [facility]ital Organization [facility] Address Unknown Phone Unavailable Encounter HQ Yajaira(STEPHEN) [phone] Date(s): 08/17/16 - 08/20/16 [facility] [address] [place] [address]- Discharge Disposition: Home or Self Care Attending Physician: Shiva Mcclure MD Admitting Physician: Shiva Mcclure MD Vital Signs 1 2 3 Most recent to oldest [Reference Range]: 167.64 cm (08/17/16 6:25 PM) Height 98.5 DegF (08/20/16 3:11 PM) 98.5 DegF (08/20/16 10:49 AM) 98.7 DegF (08/20/16 7:37 AM) Temperature Oral [96.4-99.1 DegF] 130/88 mmHg (08/20/16 3:11 PM) 119/78 mmHg (08/20/16 10:50 AM) 146/92 mmHg *HI* (08/20/16 10:49 AM) Blood Pressure [90-140/60-90 mmHg] 18 BRMIN (08/20/16 3:11 PM) 16 BRMIN (08/20/16 10:50 AM) 16 BRMIN (08/20/16 10:49 AM) Respiratory Rate [14-20 BRMIN] 55 bpm *LOW* (08/20/16 3:11 PM) 50 bpm *LOW* (08/20/16 10:50 AM) 52 bpm *LOW* (08/20/16 10:49 AM) Peripheral Pulse Rate [60-100 bpm] 91.364 kg (08/17/16 6:25 PM) Weight 32.51 m2 (08/17/16 6:25 PM) Body Mass Index Problem List Condition Effective Dates Status Health Status Informan t Anxiety(Confirmed) Active Diabetes(Confirmed) Active HLD Active (hyperlipidemia)(Con firmed) HTN Active (hypertension)(Confi rmed) Bipolar Active disorder(Confirmed) Nausea(Confirmed) Active Allergies, Adverse Reactions, Alerts Substance Reaction Severity Status lisinopril Active Medications amLODIPine 10 mg, 2 tab, Route: PO, Drug form: TAB, Daily, Dosing Weight 91.364, kg, Start date: 08/18/16 9:00:00 CDT, Stop date: 09/16/16 9:00:00 CDT Notes: (Same as: Brice) Start Date: 08/18/16 Stop Date: 08/19/16 Status: Discontinued amLODIPine 10 mg, 2 tab, Route: PO, Drug form: TAB, Daily, Dosing Weight 91.364, kg, Start date: 08/19/16 20:00:00 CDT, Duration: 30 day, Stop date: 09/18/16 9:00:00 CDT Notes: (Same as: Brice) Start Date: 08/19/16 Stop Date: 08/20/16 Status: Discontinued ascorbic acid 500 mg oral tablet 500 mg = 1 tab, PO, Daily, # 30 tab, 0 Refill(s) Start Date: 08/20/16 Status: Ordered atenolol 25 mg oral tablet 50 mg = 2 tab, PO, Daily, # 30 tab, 0 Refill(s) Start Date: 08/20/16 Status: Ordered atenolol 25 mg oral tablet 50 mg, 2 tab, Route: PO, Drug form: TAB, Daily, Dosing Weight 91.364, kg, Start date: 08/19/16 20:00:00 CDT, Duration: 30 day, Stop date: 09/18/16 9:00:00 CDT Notes: (Same As:Tenormin) Start Date: 08/19/16 Stop Date: 08/20/16 Status: Discontinued Dextrose 50% Syringe 25 gm, 50 mL, Route: IVP, Drug Form: INJ, Dosing Weight 91.364, kg, PRN, PRN Blo od Glucose Results, Start date: 08/18/16 8:40:00 CDT, Duration: 30 day, Stop subhash e: 09/17/16 8:39:00 CDT Start Date: 08/18/16 Stop Date: 08/20/16 Status: Discontinued Dextrose 50% Syringe 12.5 gm, 25 mL, Route: IVP, Drug Form: INJ, Dosing Weight 91.364, kg, PRN, PRN B lood Glucose Results, Start date: 08/18/16 8:40:00 CDT, Duration: 30 day, Stop d ate: 09/17/16 8:39:00 CDT Start Date: 08/18/16 Stop Date: 08/20/16 Status: Discontinued ferrous sulfate 325 mg, 1 tab, Route: PO, Drug form: ECTAB, TID, Dosing Weight 91.364, kg, Start date: 08/20/16 13:00:00 CDT, Duration: 30 day, Stop date: 09/19/16 9:00:00 CDT Notes: Give with food. "Do Not Crush" Start Date: 08/20/16 Stop Date: 08/20/16 Status: Discontinued ferrous sulfate 325 mg oral enteric coated tablet 325 mg = 1 tab, PO, TID, # 90 tab, 0 Refill(s) Start Date: 08/20/16 Status: Ordered glucagon 1 mg, Route: IM, Drug form: PDR/INJ, PRN, Dosing Weight 91.364, kg, PRN Blood Gl ucose Results, Start date: 08/18/16 8:40:00 CDT, Duration: 30 day, Stop date: 8:39:00 CDT Start Date: 08/18/16 Stop Date: 08/20/16 Status: Discontinued insulin aspart 5 unit, 0.05 mL, Route: SUB-Q, Drug form: SOLN, TID-Before Meals, Dosing Weight 91.364, kg, PRN Blood Glucose Results, Start date: 08/18/16 8:40:00 CDT, Duratio n: 30 day, Stop date: 09/17/16 8:39:00 CDT Notes: Roll in palms of hands gently; Do not shake vigorously. (Same as: Trae Hair)"single patient use only"WASTE: F/P - Black; E - Municipal Trash Bin Stable f or 28 days at room temperature.Expires in days from Date Start Date: 08/18/16 Stop Date: 08/20/16 Status: Discontinued insulin aspart 4 unit, 0.04 mL, Route: SUB-Q, Drug form: SOLN, TID-Before Meals, Dosing Weight 91.364, kg, PRN Blood Glucose Results, Start date: 08/18/16 8:40:00 CDT, Duratio n: 30 day, Stop date: 09/17/16 8:39:00 CDT Notes: Roll in palms of hands gently; Do not shake vigorously. (Same as: Trae Hair)"single patient use only"WASTE: F/P - Black; E - Municipal Trash Bin Stable f or 28 days at room temperature.Expires in days from Date Start Date: 08/18/16 Stop Date: 08/20/16 Status: Discontinued insulin aspart 1 unit, 0.01 mL, Route: SUB-Q, Drug form: SOLN, TID-Before Meals, Dosing Weight 91.364, kg, PRN Blood Glucose Results, Start date: 08/18/16 8:40:00 CDT, Duratio n: 30 day, Stop date: 09/17/16 8:39:00 CDT Notes: Roll in palms of hands gently; Do not shake vigorously. (Same as: Trae Hair)"single patient use only"WASTE: F/P - Black; E - Municipal Trash Bin Stable f or 28 days at room temperature.Expires in days from Date Start Date: 08/18/16 Stop Date: 08/20/16 Status: Discontinued insulin aspart 2 unit, 0.02 mL, Route: SUB-Q, Drug form: SOLN, TID-Before Meals, Dosing Weight 91.364, kg, PRN Blood Glucose Results, Start date: 08/18/16 8:40:00 CDT, Duratio n: 30 day, Stop date: 09/17/16 8:39:00 CDT Notes: Roll in palms of hands gently; Do not shake vigorously. (Same as: Trae Hair)"single patient use only"WASTE: F/P - Black; E - Municipal Trash Bin Stable f or 28 days at room temperature.Expires in days from Date Start Date: 08/18/16 Stop Date: 08/20/16 Status: Discontinued insulin aspart 3 unit, 0.03 mL, Route: SUB-Q, Drug form: SOLN, TID-Before Meals, Dosing Weight 91.364, kg, PRN Blood Glucose Results, Start date: 08/18/16 8:40:00 CDT, Duratio n: 30 day, Stop date: 09/17/16 8:39:00 CDT Notes: Roll in palms of hands gently; Do not shake vigorously. (Same as: Trae Hair)"single patient use only"WASTE: F/P - Black; E - Municipal Trash Bin Stable f or 28 days at room temperature.Expires in days from Date Start Date: 08/18/16 Stop Date: 08/20/16 Status: Discontinued KlonoPIN 0.5 mg, 1 tab, Route: PO, Drug form: TAB, BID, Dosing Weight 91.364, kg, Start d ate: 08/18/16 9:00:00 CDT, Duration: 30 day, Stop date: 09/16/16 17:00:00 CDT Notes: (Same As: KlonoPIN) Start Date: 08/18/16 Stop Date: 08/20/16 Status: Discontinued KlonoPIN 0.5 mg oral tablet 0.5 mg = 1 tab, PO, BID, # 60 tab, 0 Refill(s) Start Date: 08/18/16 Status: Ordered Latuda 80 mg, Route: PO, Drug form: TAB, Daily, Dosing Weight 91.364, kg, Start date: 0 08/18/16 9:00:00 CDT, Duration: 30 day, Stop date: 09/16/16 9:00:00 CDT Start Date: 08/18/16 Stop Date: 08/20/16 Status: Discontinued losartan 100 mg, 2 tab, Route: PO, Drug form: TAB, Daily, Dosing Weight 91.364, kg, Start date: 08/18/16 9:00:00 CDT, Duration: 30 day, Stop date: 09/16/16 9:00:00 CDT Notes: (Same as: Cozaar) Start Date: 08/18/16 Stop Date: 08/20/16 Status: Discontinued magnesium sulfate 2 gm, 50 mL, Route: IVPB, Drug form: INJ, ONCE, Dosing Weight 91.364, kg, Total dose = 2 gm, Start date: 08/18/16 8:07:00 CDT, Duration: 1 doses or times, Stop date: 08/18/16 8:07:00 CDT Notes: WASTE: F/P - Sink; E - Municipal Trash Bin Start Date: 08/18/16 Stop Date: 08/18/16 Status: Completed metFORMIN extended release 500 mg, 1 tab, Route: PO, Drug form: ERTAB, BID, Dosing Weight 91.364, kg, Start date: 08/18/16 9:00:00 CDT, Duration: 30 day, Stop date: 09/16/16 17:00:00 CDT Notes: (Same as: Glucophage XR)"Do Not Crush" Start Date: 08/18/16 Stop Date: 08/20/16 Status: Discontinued morphine Sulfate 4 mg, 1 mL, Route: IVP, Drug form: SOLN, ONCE, Dosing Weight 91.364, kg, Priorit y: STAT, Start date: 08/17/16 19:29:00 CDT, Stop date: 08/17/16 19:29:00 CDT Notes: (Same as:MORPhine Sulfate) Start Date: 08/17/16 Stop Date: 08/17/16 Status: Completed morphine Sulfate 4 mg, Route: IVP, ONCE, Dosing Weight 91.364, kg, Priority: STAT, Start date: 23:55:00 CDT, Stop date: 08/17/16 23:55:00 CDT Start Date: 08/17/16 Stop Date: 08/17/16 Status: Completed morphine Sulfate 4 mg, 1 mL, Route: IVP, Drug form: SOLN, Q4H, Dosing Weight 91.364, kg, PRN Pain Score 7-10, Start date: 08/18/16 1:57:00 CDT, Duration: 30 day, Stop date: 09/02 09/18 1:56:00 CDT Notes: (Same as:MORPhine Sulfate) Start Date: 08/18/16 Stop Date: 08/20/16 Status: Discontinued multivitamin with iron 1 tab, Route: PO, Drug Form: TAB, Dosing Weight 91.364, kg, Daily, Start date: 0 08/20/16 9:00:00 CDT, Duration: 30 day, Stop date: 09/18/16 9:00:00 CDT Notes: Same as Iron/C/B12/FA/SA Start Date: 08/20/16 Stop Date: 08/20/16 Status: Discontinued NS (Bolus) IV 1,000 mL, 1,000 ml/hr, Infuse Over: 1 hr, Route: IV, 1,000, Drug form: INJ, ONCE , Priority: STAT, Dosing Weight 90.2 kg, Start date: 08/17/16 18:26:00 CDT, Dura tion: 1 doses or times, Stop date: 08/17/16 18:26:00 CDT Start Date: 08/17/16 Stop Date: 08/17/16 Status: Completed pantoprazole 40 mg oral enteric coated tablet 40 mg = 1 tab, PO, Before Dinner, # 30 tab, 0 Refill(s) Start Date: 08/20/16 Status: Ordered Phenergan + sodium chloride 0.9% INJ 50 mL 25 mg, 1 mL, Route: IVPB, Q6H, Dosing Weight 91.364, kg, PRN as needed for nause a/vomiting, Start date: 08/18/16 1:58:00 CDT, Duration: 30 day, Stop date: 09/17 1:57:00 CDT Notes: Do not give IV push. (Same as: Phenergan) Start Date: 08/18/16 Stop Date: 08/20/16 Status: Discontinued promethazine 12.5 mg, Route: IVPB, ONCE, Dosing Weight 91.364, kg, Priority: STAT, Start date : 08/17/16 21:54:00 CDT, Stop date: 08/17/16 21:54:00 CDT Start Date: 08/17/16 Stop Date: 08/17/16 Status: Completed Protonix 40 mg, Route: IVP, ONCE, Dosing Weight 91.364, kg, Priority: STAT, Start date: 0 08/17/16 21:54:00 CDT, Stop date: 08/17/16 21:54:00 CDT Start Date: 08/17/16 Stop Date: 08/17/16 Status: Completed Protonix 40 mg, 1 tab, Route: PO, Drug form: ECTAB, Before Dinner, Dosing Weight 91.364, kg, Start date: 08/21/16 16:30:00 CDT, Duration: 30 day, Stop date: 09/19/16 16: 30:00 CDT Notes: Tablet should not be chewed or crushed.(Same as: Protonix) Start Date: 08/21/16 Stop Date: 08/20/16 Status: Canceled Protonix 40 mg, Route: IV, Drug form: INJ, Daily, Dosing Weight 91.364, kg, Priority: Rou glendy, Start date: 08/20/16 9:00:00 CDT, Duration: 30 day, Stop date: 09/18/16 9: 00:00 CDT Notes: For IV push reconstitute with 10 ml 0.9% sodium chloride and push over 2 minutes. (Same as: Protonix) Start Date: 08/20/16 Stop Date: 08/20/16 Status: Voided With Results Sodium Chloride 0.9% (Bolus) IV 1,000 mL, Infuse Over: 1 hr, Route: IV, ONCE, Priority: STAT, Dosing Weight 91.3 64 kg, Start date: 08/17/16 20:13:00 CDT, Duration: 1 doses or times, Stop date: 08/17/16 20:13:00 CDT Start Date: 08/17/16 Stop Date: 08/17/16 Status: Completed Sodium Chloride 0.9% (Bolus) IV 1,000 mL, Infuse Over: 1 hr, Route: IV, ONCE, Priority: STAT, Dosing Weight 91.3 64 kg, Start date: 08/17/16 21:54:00 CDT, Duration: 1 doses or times, Stop date: 08/17/16 21:54:00 CDT Start Date: 08/17/16 Stop Date: 08/17/16 Status: Completed sodium chloride 0.9% 1000 ml INJ 1,000 mL 1,000 mL, Rate: 25 ml/hr, Infuse over: 40 hr, Route: IV, Dosing Weight 91.364 kg , Total Volume: 1,000, Start date: 08/19/16 14:44:00 CDT, Duration: 30 day, Stop date: 09/18/16 14:43:00 CDT Start Date: 08/19/16 Stop Date: 08/19/16 Status: Discontinued sodium chloride 0.9% 1000 ml INJ 1,000 mL 1,000 mL, Rate: 125 ml/hr, Infuse over: 8 hr, Route: IV, Dosing Weight 91.364 kg , Total Volume: 1,000, Start date: 08/18/16 1:58:00 CDT, Duration: 30 day, Stop date: 09/17/16 1:57:00 CDT Start Date: 08/18/16 Stop Date: 08/20/16 Status: Discontinued Tenormin 25 mg oral tablet 50 mg, 2 tab, Route: PO, Drug form: TAB, Daily, Dosing Weight 91.364, kg, Start date: 08/18/16 14:03:00 CDT, Stop date: 09/17/16 9:00:00 CDT Notes: (Same As:Tenormin) Start Date: 08/18/16 Stop Date: 08/19/16 Status: Discontinued thiamine 100 mg, Route: PO, Drug form: TAB, Daily, Dosing Weight 91.364, kg, Start date: 08/20/16 9:00:00 CDT, Duration: 30 day, Stop date: 09/18/16 9:00:00 CDT Start Date: 08/20/16 Stop Date: 08/19/16 Status: Canceled thiamine 100 mg, 1 tab, Route: PO, Drug form: TAB, Daily, Dosing Weight 91.364, kg, Start date: 08/20/16 9:00:00 CDT, Duration: 30 day, Stop date: 09/18/16 9:00:00 CDT Notes: (Same As: Vitamin B1) Start Date: 08/20/16 Stop Date: 08/20/16 Status: Discontinued thiamine 100 mg oral tablet 100 mg = 1 tab, PO, Daily, # 30 tab, 0 Refill(s) Start Date: 08/20/16 Stop Date: 08/20/16 Status: Completed Vasotec 1.25 mg, 1 mL, Route: IV, Drug form: INJ, Q6H, Dosing Weight 91.364, kg, PRN Elina vated BP, Start date: 08/18/16 20:47:00 CDT, Duration: 30 day, Stop date: 20:46:00 CDT Notes: (Same as: Vasotec-IV) Start Date: 08/18/16 Stop Date: 08/20/16 Status: Discontinued Vitamin C 500 mg, 1 tab, Route: PO, Drug form: TAB, Daily, Dosing Weight 91.364, kg, Start date: 08/21/16 9:00:00 CDT, Duration: 30 day, Stop date: 09/19/16 9:00:00 CDT Notes: (Same as: Vitamin C) Start Date: 08/21/16 Stop Date: 08/20/16 Status: Canceled Zofran 4 mg, 2 mL, Route: IV, Drug form: INJ, Q6H, Dosing Weight 91.364, kg, PRN as nee ded for nausea/vomiting, Start date: 08/18/16 1:58:00 CDT, Duration: 30 day, Sto p date: 09/17/16 1:57:00 CDT Notes: (Same as: Zofran) MEDICATION WASTE Product Size: 4 mgProduct Was zaida: ___ mg Start Date: 08/18/16 Stop Date: 08/20/16 Status: Discontinued Zofran 4 mg, 2 mL, Route: IVP, Drug form: INJ, ONCE, Dosing Weight 90.2, kg, Priority: STAT, Start date: 08/17/16 18:26:00 CDT, Stop date: 08/17/16 18:26:00 CDT Notes: (Same as: Zofran) MEDICATION WASTE Product Size: 4 mgProduct Was zaida: ___ mg Start Date: 08/17/16 Stop Date: 08/17/16 Status: Completed Zofran 4 mg, Route: IVP, Drug form: INJ, ONCE, Dosing Weight 91.364, kg, Priority: STAT , Start date: 08/17/16 21:16:00 CDT, Stop date: 08/17/16 21:16:00 CDT Start Date: 08/17/16 Stop Date: 08/17/16 Status: Completed zolpidem 10 mg, Route: PO, Drug form: TAB, Bedtime, Dosing Weight 91.364, kg, PRN Sleep, Start date: 08/18/16 8:38:00 CDT, Duration: 30 day, Stop date: 09/17/16 8:37:00 CDT Start Date: 08/18/16 Stop Date: 08/18/16 Status: Deleted zolpidem 5 mg, 1 tab, Route: PO, Drug form: TAB, Bedtime, PRN Sleep, Start date: 08/18/16 9:09:00 CDT, Duration: 30 day, Stop date: 09/17/16 9:08:00 CDT Notes: (Same As: Naomieien) Start Date: 08/18/16 Stop Date: 08/20/16 Status: Discontinued Results ELECTROLYTES 1 2 3 Most recent to oldest [Reference Range]: 141 mEq/L (08/20/16 4:47 AM) 139 mEq/L (08/19/16 5:41 AM) 140 mEq/L (08/18/16 5:47 AM) Sodium Lvl [135-145 mEq/L] 4.2 mEq/L (08/20/16 4:47 AM) 4.0 mEq/L (08/19/16 5:41 AM) 4.1 mEq/L (08/18/16 5:47 AM) Potassium Lvl [3.5-5.1 mEq/L] 108 mEq/L (08/20/16 4:47 AM) 108 mEq/L (08/19/16 5:41 AM) 110 mEq/L *HI* (08/18/16 5:47 AM) Chloride Lvl [95-109 mEq/L] 22 mEq/L *LOW* (08/20/16 4:47 AM) 23 mEq/L *LOW* (08/19/16 5:41 AM) 20 mEq/L *LOW* (08/18/16 5:47 AM) CO2 [24-32 mEq/L] 15.2 mEq/L (08/20/16 4:47 AM) 12.0 mEq/L (08/19/16 5:41 AM) 14.1 mEq/L (08/18/16 5:47 AM) AGAP [10.0-20.0 mEq/L] CHEM PANEL 1 2 3 Most recent to oldest [Reference Range]: 0.97 mg/dL (08/20/16 4:47 AM) 0.99 mg/dL (08/19/16 5:41 AM) 1.30 mg/dL (08/18/16 5:47 AM) Creatinine Lvl [0.50-1.40 mg/dL] 70 mL/min/1.73m2 1 *NA* (08/20/16 4:47 AM) 68 mL/min/1.73m2 2 *NA* (08/19/16 5:41 AM) 49 mL/min/1.73m2 3 *NA* (08/18/16 5:47 AM) eGFR 10 mg/dL (08/20/16 4:47 AM) 13 mg/dL (08/19/16 5:41 AM) 18 mg/dL (08/18/16 5:47 AM) BUN [7-22 mg/dL] 10 (08/20/16 4:47 AM) 13 (08/19/16 5:41 AM) 14 (08/18/16 5:47 AM) B/C Ratio [6-25] 153 mg/dL *HI* (08/20/16 4:47 AM) 137 mg/dL *HI* (08/19/16 5:41 AM) 197 mg/dL *HI* (08/18/16 5:47 AM) Glucose Lvl [70-99 mg/dL] 6.6 g/dL (08/20/16 4:47 AM) 6.6 g/dL (08/19/16 5:41 AM) 6.7 g/dL (08/18/16 5:47 AM) Total Protein [6.4-8.4 g/dL] 3.4 g/dL *LOW* (08/20/16 4:47 AM) 3.4 g/dL *LOW* (08/19/16 5:41 AM) 3.4 g/dL *LOW* (08/18/16 5:47 AM) Albumin Lvl [3.5-5.0 g/dL] 3.2 g/dL (08/20/16 4:47 AM) 3.2 g/dL (08/19/16 5:41 AM) 3.3 g/dL (08/18/16 5:47 AM) Globulin [2.7-4.2 g/dL] 1.1 (08/20/16 4:47 AM) 1.1 (08/19/16 5:41 AM) 1.0 (08/18/16 5:47 AM) A/G Ratio [0.7-1.6] 8.5 mg/dL (08/20/16 4:47 AM) 8.6 mg/dL (08/19/16 5:41 AM) 8.3 mg/dL *LOW* (08/18/16 5:47 AM) Calcium Lvl [8.5-10.5 mg/dL] 1.3 mg/dL *LOW* (08/18/16 5:47 AM) Magnesium Lvl [1.8-2.4 mg/dL] 179 unit/L *HI* (08/20/16 4:47 AM) 280 unit/L *HI* (08/19/16 5:41 AM) 161 unit/L *HI* (08/18/16 5:47 AM) ALT [0-65 unit/L] 81 unit/L *HI* (08/20/16 4:47 AM) 325 unit/L *HI* (08/19/16 5:41 AM) 490 unit/L *HI* (08/18/16 5:47 AM) AST [0-37 unit/L] 184 unit/L *HI* (08/20/16 4:47 AM) 188 unit/L *HI* (08/19/16 5:41 AM) 159 unit/L *HI* (08/18/16 5:47 AM) Alk Phos [39-136 unit/L] 0.6 mg/dL (08/20/16 4:47 AM) 0.9 mg/dL (08/19/16 5:41 AM) 0.8 mg/dL (08/18/16 5:47 AM) Bili Total [0.2-1.3 mg/dL] 123 unit/L (08/17/16 7:21 PM) Lipase Lvl [73-393 unit/L] 79.6 nMol/L 4 *NA* (08/19/16 5:25 PM) Vitamin B1 [66.5-200.0 nMol/L] 1Result Comment: The eGFR is calculated using [...] tiplied by the estimated BMI. 4Result Comment: Performed At: [facility] [id number] Carlin Feliz MD Ph:[phone] ANEMIA STUDY 1 2 3 Most recent to oldest [Reference Range]: 17 ug/dl *LOW* (08/19/16 5:25 PM) 20 ug/dl *LOW* (08/19/16 6:32 AM) Iron [30-160 ug/dl] 6 ng/mL (08/19/16 5:25 PM) Ferritin Lvl [5-204 ng/mL] 4 % *LOW* (08/19/16 5:25 PM) 5 % *LOW* (08/19/16 6:32 AM) % Satur Fe [12-57 %] 446 ug/dl *HI* (08/19/16 5:25 PM) 378 ug/dl *HI* (08/19/16 6:32 AM) UIBC [110-370 ug/dl] 259 pg/mL (08/19/16 5:25 PM) Vitamin B12 Lvl [254-1320 pg/mL] 11.3 ng/mL (08/19/16 5:25 PM) Folate Lvl [>=3.0 ng/mL] 463 ug/dl *HI* (08/19/16 5:25 PM) 398 ug/dl (08/19/16 6:32 AM) TIBC [228-428 ug/dl] URINE CHEM 1 2 3 Most recent to oldest [Reference Range]: Negative (08/17/16 7:21 PM) U Preg [Negative] URINE AND STOOL 1 2 3 Most recent to oldest [Reference Range]: Clear (08/18/16 8:45 AM) Slight *ABN* (08/17/16 7:21 PM) UA Turbidity [Clear] Yellow *NA* (08/18/16 8:45 AM) Yellow *NA* (08/17/16 7:21 PM) UA Color [Yellow] 5.0 (08/18/16 8:45 AM) 5.0 (08/17/16 7:21 PM) UA pH [5.0-8.0] 1.014 (08/18/16 8:45 AM) 1.026 (08/17/16 7:21 PM) UA Spec Grav [<=1.030] Negative mg/dL *NA* (08/18/16 8:45 AM) 50 mg/dL *ABN* (08/17/16 7:21 PM) UA Glucose [Negative mg/dL] Negative (08/18/16 8:45 AM) Negative (08/17/16 7:21 PM) UA Blood [Negative] Negative mg/dL *NA* (08/18/16 8:45 AM) Trace mg/dL *ABN* (08/17/16 7:21 PM) UA Ketones [Negative mg/dL] Negative mg/dL (08/18/16 8:45 AM) 100 mg/dL *ABN* (08/17/16 7:21 PM) UA Protein [Negative mg/dL] 4.0 mg/dL *HI* (08/18/16 8:45 AM) 2.0 mg/dL *HI* (08/17/16 7:21 PM) UA Urobilinogen [0.1-1.0 mg/dL] Negative *NA* (08/18/16 8:45 AM) Negative *NA* (08/17/16 7:21 PM) UA Bili [Negative] Negative (08/18/16 8:45 AM) Negative (08/17/16 7:21 PM) UA Leuk Est [Negative] Negative (08/18/16 8:45 AM) Negative (08/17/16 7:21 PM) UA Nitrite [Negative] 1 /HPF (08/18/16 8:45 AM) 2 /HPF (08/17/16 7:21 PM) UA WBC [0-5 /HPF] <1 /HPF (08/18/16 8:45 AM) 1 /HPF (08/17/16 7:21 PM) UA RBC [0-2 /HPF] Occasional /LPF *NA* (08/18/16 8:45 AM) Occasional /LPF *NA* (08/17/16 7:21 PM) UA Sq Epi [Few /LPF] 30 /LPF *HI* (08/17/16 7:21 PM) UA Hyal Cast [0-2 /LPF] Few /LPF *NA* (08/17/16 7:21 PM) UA Mucus [None Seen /LPF] IMMUNOLOGY 1 2 3 Most recent to oldest [Reference Range]: Negative *NA* (08/19/16 5:41 AM) Hep Bs Ag [Negative] Negative *NA* (08/19/16 5:41 AM) Hep B Core IgM [Negative] Negative *NA* (08/19/16 5:41 AM) Hep A IgM [Negative] Negative *NA* (08/19/16 5:41 AM) Hep C Ab HEMATOLOGY 1 2 3 Most recent to oldest [Reference Range]: 6.5 K/CMM (08/20/16 4:47 AM) 6.5 K/CMM (08/20/16 4:47 AM) 5.6 K/CMM (08/19/16 5:41 AM) WBC [3.7-10.4 K/CMM] 4.13 M/CMM *LOW* (08/20/16 4:47 AM) 4.13 M/CMM *LOW* (08/20/16 4:47 AM) 3.82 M/CMM *LOW* (08/19/16 5:41 AM) RBC [4.20-5.40 M/CMM] 8.4 g/dL *LOW* (08/20/16 4:47 AM) 8.4 g/dL *LOW* (08/20/16 4:47 AM) 7.9 g/dL *LOW* (08/19/16 5:41 AM) Hgb [12.0-16.0 g/dL] 27.7 % *LOW* (08/20/16 4:47 AM) 27.7 % *LOW* (08/20/16 4:47 AM) 25.8 % *LOW* (08/19/16 5:41 AM) Hct [36.0-48.0 %] 67.2 fL *LOW* (08/20/16 4:47 AM) 67.2 fL *LOW* (08/20/16 4:47 AM) 67.5 fL *LOW* (08/19/16 5:41 AM) MCV [80.0-98.0 fL] 20.3 pg *LOW* (08/20/16 4:47 AM) 20.3 pg *LOW* (08/20/16 4:47 AM) 20.8 pg *LOW* (08/19/16 5:41 AM) MCH [27.0-31.0 pg] 30.3 g/dL *LOW* (08/20/16 4:47 AM) 30.3 g/dL *LOW* (08/20/16 4:47 AM) 30.8 g/dL *LOW* (08/19/16 5:41 AM) MCHC [32.0-36.0 g/dL] 17.7 % *HI* (08/20/16 4:47 AM) 17.7 % *HI* (08/20/16 4:47 AM) 18.2 % *HI* (08/19/16 5:41 AM) RDW [11.5-14.5 %] 208 K/CMM (08/20/16 4:47 AM) 208 K/CMM (08/20/16 4:47 AM) 216 K/CMM (08/19/16 5:41 AM) Platelet [133-450 K/CMM] 9.5 fL (08/20/16 4:47 AM) 9.5 fL (08/20/16 4:47 AM) 9.0 fL (08/19/16 5:41 AM) MPV [7.4-10.4 fL] 67.4 % (08/20/16 4:47 AM) 63.5 % (08/19/16 5:41 AM) 77.4 % *HI* (08/18/16 4:34 AM) Segs [45.0-75.0 %] 23.2 % (08/20/16 4:47 AM) 28.2 % (08/19/16 5:41 AM) 14.8 % *LOW* (08/18/16 4:34 AM) Lymphocytes [20.0-40.0 %] 8.1 % (08/20/16 4:47 AM) 6.8 % (08/19/16 5:41 AM) 7.3 % (08/18/16 4:34 AM) Monocytes [2.0-12.0 %] 0.7 % (08/20/16 4:47 AM) 0.6 % (08/19/16 5:41 AM) 0.1 % (08/18/16 4:34 AM) Eosinophils [0.0-4.0 %] 0.6 % (08/20/16 4:47 AM) 0.9 % (08/19/16 5:41 AM) 0.4 % (08/18/16 4:34 AM) Basophils [0.0-1.0 %] 4.4 K/CMM (08/20/16 4:47 AM) 3.5 K/CMM (08/19/16 5:41 AM) 6.1 K/CMM (08/18/16 4:34 AM) Segs-Bands # [1.5-8.1 K/CMM] 1.5 K/CMM (08/20/16 4:47 AM) 1.6 K/CMM (08/19/16 5:41 AM) 1.2 K/CMM (08/18/16 4:34 AM) Lymphocytes # [1.0-5.5 K/CMM] 0.5 K/CMM (08/20/16 4:47 AM) 0.4 K/CMM (08/19/16 5:41 AM) 0.6 K/CMM (08/18/16 4:34 AM) Monocytes # [0.0-0.8 K/CMM] 0.1 K/CMM (08/19/16 5:41 AM) 0.1 K/CMM (08/17/16 7:21 PM) Basophils # [0.0-0.2 K/CMM] See Note 1 (08/17/16 7:21 PM) RBC Morph 3+ *NA* (08/20/16 4:47 AM) 3+ *NA* (08/19/16 5:41 AM) 3+ *NA* (08/18/16 4:34 AM) Microcyte [None Seen] Normal (08/17/16 7:21 PM) Plt Morph 13.9 seconds (08/20/16 4:47 AM) 14.8 seconds *HI* (08/19/16 5:41 AM) PT [12.0-14.7 seconds] 1.05 (08/20/16 4:47 AM) 1.14 (08/19/16 5:41 AM) INR [0.85-1.17] 28.8 seconds (08/20/16 4:47 AM) 28.3 seconds (08/19/16 5:41 AM) PTT [22.9-35.8 seconds] 1Result Comment: microcytosis Immunizations Given and Recorded Vaccine Date Status [...] Clinical Document Author: Shiva Mcclure MD Date: 08/20/16 Progress Note - Daily [facility] Completed: Saturday, AUGUST 20, 2016, 14:41 by Shiva Mcclure MD RM: [id number] - [address]D, SE VERONICA [id number] (: 1970) F Attending: Shiva Mcclure MDPhone: Service: Internal Medicine Reason for Admission: INTRACTABLE NAUSEA AND VOMITING Working DRG: Esophagitis, gastroent & misc digest disorders w/o [facility] Code status: Full Code [Ordered]Current diet: Isolation: None Documented Allergies: lisinopril SUBJECTIVE OBJECTIVE 24hr Labs 08/20 1130 Glucose CSJ882 H 08/20 0740 Glucose JNX159 H 08/20 0447 Sodium Dju824 Potassium Lvl4.2 Chloride Orx299 CO222 L AGAP15.2 Glucose Lzx302 H Creatinine Lvl0.97 BUN10 B/C Ratio10 Total Protein6.6 Albumin Lvl3.4 L Globulin3.2 A/G Ratio1.1 Calcium Lvl8.5 SBX028 H AST81 H Alk Mrhw152 H Bili Total0.6 eGFR70 WBC6.5 RBC4.13 L Hgb8.4 L Hct27.7 L MCV67.2 L MCH20.3 L MCHC30.3 L RDW17.7 H Fpesopbt437 MPV9.5 WBC6.5 RBC4.13 L Hgb8.4 L Hct27.7 L MCV67.2 L MCH20.3 L MCHC30.3 L RDW17.7 H Dpdduvyh558 MPV9.5 Segs67.4 Monocytes8.1 Rzsartfooov97.2 Eosinophils0.7 Basophils0.6 Segs-Bands #4.4 Lymphocytes #1.5 Monocytes #0.5 Microcyte3+ PT13.9 INR1.05 PTT28.8 08/19 2129 Glucose RCO554 H 08/19 1725 Ferritin Lvl6 Folate Lvl11.3 Iron17 L % Satur Fe4 L BOOO249 H JYNV443 H Vitamin B12 Ddt914 08/19 1628 Glucose VII032 H 08/19 0632 Iron20 L % Satur Fe5 L UMLT522 OLHA561 H Hawk still necessary (Yes/No): Line still necessary (Yes/No): VitalsTmp(F)OfuyuQHPLPdU1FRB2 08/20 10:50----74444/013905--- 08/20 10:4998.132579/586459--- 08/20 08:59----78 08/20 07:3798.275106/045208--- 08/20 06:35----03380/[id number]--- 24 Hr Tmax: 98.7F (37.06c) at 08/20 07:3 7Vital Signs are the last 5 in the past 48 hours. DateWt(kg)Wt(lb)Ht(cm)Ht(in)Method 08/17 (initial) 91.36 201.00Estimated 67.64 66.00Stated I&ORecordInOutBal 08/1923hr Tot 0 0 0 08/1823hr Tot [phone] Medications (25) Active Scheduled Meds (11): 08/19/16 amLODIPine 10 mg PO Daily 08/21/16 ascorbic acid (Vitamin C) 500 m g PO Daily 08/19/16 atenolol (atenolol 25 mg oral t ablet) 50 mg PO Daily 08/18/16 clonazePAM (KlonoPIN) 0.5 mg PO BID 08/20/16 ferrous sulfate 325 mg PO TID 08/18/16 losartan 100 mg PO Daily 08/18/16 lurasidone (Latuda) 80 mg PO Da malvin 08/18/16 metFORMIN (metFORMIN extended r elease) 500 mg PO BID 08/20/16 multivitamin with iron 1 tab PO Daily 08/21/16 pantoprazole (Protonix) 40 mg P O Before Dinner 08/20/16 thiamine 100 mg PO Daily Unscheduled Meds: None PRN Meds (13): 08/18/16 Dextrose 50% in Water IV (Dextr ose 50% Syringe) 12.5 gm IVP PRN 08/18/16 Dextrose 50% in Water IV (Dextr ose 50% Syringe) 25 gm IVP PRN 08/18/16 enalapril (Vasotec) 1.25 mg IV Q6H 08/18/16 glucagon 1 mg IM PRN 08/18/16 insulin aspart 1 unit SUB-Q TID -Before Meals 08/18/16 insulin aspart 2 unit SUB-Q TID -Before Meals 08/18/16 insulin aspart 3 unit SUB-Q TID -Before Meals 08/18/16 insulin aspart 4 unit SUB-Q TID -Before Meals 08/18/16 insulin aspart 5 unit SUB-Q TID -Before Meals 08/18/16 morphine Sulfate 4 mg IVP Q4H 08/18/16 ondansetron (Zofran) 4 mg IV Q6 H 08/18/16 promethazine + sodium chloride 0.9% INJ 50 mL (Phenergan + sodium chloride 0.9% INJ 50 mL) 25 mg IVPB Q6H 153 ml/hr 08/18/16 zolpidem 5 mg PO Bedtime One Time Meds: None Continuous Infusions (1): 08/18/16 sodium chloride 0.9% 1000 ml IN J 1,000 mL 1,000 mL 125 ml/hr ASSESSMENT & EXAM PLAN & TREATMENT DIAGNOSES & PROBLEMS [id number] Ready for Discharge (Yes/No)? TEACHING ATTESTATION
--- OUTSIDE RECORDS SUMMARY | 2019-09-06 11:33 | XMS REPORT | Summary of Care ---
Author Author [facility] Organization [facility] Address Unknown Phone Unavailable Encounter HQ Yajaira(FIN) [id number] Date(s): 12/23/16 - 12/23/16 [facility] [address] [place] [address]- Discharge Disposition: Home or Self Care Attending Physician: Shiva Mcclure MD Referring Physician: Brie Reeves DO Vital Signs No data available for this section Problem List Condition Effective Dates Status Health Status Informan t Anxiety(Confirmed) Active Diabetes(Confirmed) Active HLD Active (hyperlipidemia)(Con firmed) HTN Active (hypertension)(Confi rmed) Bipolar Active disorder(Confirmed) Nausea(Confirmed) Active Allergies, Adverse Reactions, Alerts Substance Reaction Severity Status lisinopril Active Medications No data available for this section Results No data available for this section Immunizations Given and Recorded Vaccine Date Status [...] Cessation Counseli ng No Assessment and Plan No data available for this section
--- OUTSIDE RECORDS SUMMARY | 2019-09-06 11:33 | XMS REPORT | Summary of Care ---
Author Author [facility] Organization [facility] Address Unknown Phone Unavailable Encounter FLORA Gates(STEPHEN) [id number] Date(s): 01/17/17 - 01/17/17 [facility] [address] [place] [address]- Discharge Diagnosis: Vomiting Discharge Disposition: Home or Self Care Attending Physician: Lencho Berg MD Vital Signs 1 2 3 Most recent to oldest [Reference Range]: 167.64 cm (01/17/17 11:53 AM) Height 98.0 DegF (01/17/17 9:00 PM) 98.2 DegF (01/17/17 6:05 PM) 98.5 DegF (01/17/17 4:00 PM) Temperature Oral [96.4-99.1 DegF] 136/96 mmHg (01/17/17 9:00 PM) 150/76 mmHg *HI* (01/17/17 6:05 PM) 129/84 mmHg (01/17/17 4:00 PM) Blood Pressure [90-140/60-90 mmHg] 18 BRMIN (01/17/17 9:00 PM) 18 BRMIN (01/17/17 6:05 PM) 20 BRMIN (01/17/17 5:00 PM) Respiratory Rate [14-20 BRMIN] 62 bpm (01/17/17 11:53 AM) Peripheral Pulse Rate [60-100 bpm] 91.818 kg (01/17/17 11:53 AM) Weight 32.67 m2 (01/17/17 11:53 AM) Body Mass Index Problem List Condition Effective Dates Status Health Status Informan t Anxiety(Confirmed) Active Diabetes(Confirmed) Active HLD Active (hyperlipidemia)(Con firmed) HTN Active (hypertension)(Confi rmed) Bipolar Active disorder(Confirmed) Nausea(Confirmed) Active Allergies, Adverse Reactions, Alerts Substance Reaction Severity Status lisinopril Active Medications GI cocktail 30 mL, Route: PO, Dosing Weight 91.818, kg, ONCE, STAT, Start date: 01/17/17 20: 34:00 CDT, Stop date: 01/17/17 20:34:00 CDT Start Date: 01/17/17 Stop Date: 01/17/17 Status: Completed morphine Sulfate 4 mg, Route: IVP, ONCE, Dosing Weight 91.818, kg, Priority: STAT, Start date: 16:43:00 CDT, Stop date: 01/17/17 16:43:00 CDT Start Date: 01/17/17 Stop Date: 01/17/17 Status: Completed NS (Bolus) IV 1,000 mL, 1,000 ml/hr, Infuse Over: 1 hr, Route: IV, 1,000, Drug form: INJ, ONCE , Priority: STAT, Dosing Weight 91.818 kg, Start date: 01/17/17 13:56:00 CDT, Du ration: 1 doses or times, Stop date: 01/17/17 13:56:00 CDT Start Date: 01/17/17 Stop Date: 01/17/17 Status: Completed ondansetron 4 mg, Route: IVP, Drug form: INJ, ONCE, Dosing Weight 91.818, kg, Priority: STAT , Start date: 01/17/17 16:43:00 CDT, Stop date: 01/17/17 16:43:00 CDT Start Date: 01/17/17 Stop Date: 01/17/17 Status: Completed Saline Flush 0.9% 10 mL, Route: IVP, Drug Form: INJ, Dosing Weight 88.12, kg, PRN, PRN Line Flush, Start date: 01/17/17 11:54:00 CDT, Duration: 30 day, Stop date: 02/16/17 10:53: 00 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 Notes: (Same as: BD Posiflush) Start Date: 01/17/17 Stop Date: 01/17/17 Status: Discontinued sodium chloride 0.9% 1000 ml INJ 984.8 mL + M.V.I.-12 10 mL Daily + folic acid I V 1 mg Daily + thia 984.8 mL, Rate: 100 ml/hr, Infuse over: 10 hr, Route: IV, Dosing Weight 91.818 k g, Total Volume: 1,000, Start date: 01/17/17 13:55:00 CDT, Duration: 1 doses or times, Stop date: 01/17/17 23:54:00 CDT Notes: send to 2E Start Date: 01/17/17 Stop Date: 01/17/17 Status: Completed Zantac 150 oral tablet 150 mg = 1 tab, PO, BID, # 60 tab, 0 Refill(s) Start Date: 01/17/17 Stop Date: 02/16/17 Status: Ordered Zofran 4 mg oral tablet 4 mg = 1 tab, PO, BID, # 10 tab, 0 Refill(s) Start Date: 01/17/17 Stop Date: 01/22/17 Status: Ordered Results BLOOD BANK RESULTS Most recent to 1 oldest [Reference Range]: ABO/Rh A POS *Unknown* (01/17/17 4:21 PM) Antibody Scrn Negative (01/17/17 4:21 PM) ELECTROLYTES Most recent to 1 oldest [Reference Range]: Sodium Lvl [135-145 138 mEq/L mEq/L] (01/17/17 4:21 PM) Potassium Lvl 3.9 mEq/L [3.5-5.1 mEq/L] (01/17/17 4:21 PM) Chloride Lvl [95-109 105 mEq/L mEq/L] (01/17/17 4:21 PM) CO2 [24-32 mEq/L] 24 mEq/L (01/17/17 4:21 PM) AGAP [10.0-20.0 12.9 mEq/L mEq/L] (01/17/17 4:21 PM) CHEM PANEL Most recent to 1 oldest [Reference Range]: Creatinine Lvl 1.20 mg/dL [0.50-1.40 mg/dL] (01/17/17 4:21 PM) eGFR 54 mL/min/1.73m2 1 *NA* (01/17/17 4:21 PM) BUN [7-22 mg/dL] 16 mg/dL (01/17/17 4:21 PM) B/C Ratio [6-25] 13 (01/17/17 4:21 PM) Glucose Lvl [70-99 64 mg/dL mg/dL] *LOW* (01/17/17: PM) Total Protein 9.0 g/dL [6.4-8.4 g/dL] *HI* (01/17/17 4:21 PM) Albumin Lvl [3.5-5.0 4.3 g/dL g/dL] (01/17/17:21 PM) Globulin [2.7-4.2 4.7 g/dL g/dL] *HI* (01/17/17:21 PM) A/G Ratio [0.7-1.6] 0.9 (01/17/17: PM) Calcium Lvl 9.4 mg/dL [8.5-10.5 mg/dL] (01/17/17:21 PM) ALT [0-65 unit/L] 20 unit/L (01/17/17: PM) AST [0-37 unit/L] 24 unit/L (01/17/17:21 PM) Alk Phos [39-136 141 unit/L unit/L] *HI* (01/17/17:21 PM) Bili Total [0.2-1.3 0.5 mg/dL mg/dL] (01/17/17:21 PM) Amylase Lvl [25-115 110 unit/L unit/L] (01/17/17 4:21 PM) Lipase Lvl [73-393 144 unit/L unit/L] (01/17/17:21 PM) 1Result Comment: The eGFR is calculated using [...] be mul tiplied by the estimated BMI. URINE CHEM Most recent to 1 oldest [Reference Range]: U Preg [Negative] Negative (01/17/17 4:21 PM) URINE AND STOOL Most recent to 1 oldest [Reference Range]: UA Turbidity [Clear] Clear (01/17/17 4:21 PM) UA Color Ltyellow *NA* (01/17/17 4:21 PM) UA pH [5.0-8.0] 7.0 (01/17/17 4:21 PM) UA Spec Grav 1.006 [<=1.030] (01/17/17 4:21 PM) UA Glucose [Negative Negative mg/dL mg/dL] *NA* (01/17/17 4:21 PM) UA Blood [Negative] Negative (01/17/17 4:21 PM) UA Ketones [Negative Negative mg/dL mg/dL] *NA* (01/17/17 4:21 PM) UA Protein [Negative Negative mg/dL mg/dL] (01/17/17 4:21 PM) UA Urobilinogen <=1.0 mg/dL [0.1-1.0 mg/dL] *NA* (01/17/17 4:21 PM) UA Bili [Negative] Negative *NA* (01/17/17 4:21 PM) UA Leuk Est Negative [Negative] (01/17/17 4:21 PM) UA Nitrite Negative [Negative] (01/17/17 4:21 PM) UA WBC [0-5 /HPF] 2 /HPF (01/17/17 4:21 PM) UA RBC [0-2 /HPF] 2 /HPF (01/17/17 4:21 PM) UA Bacteria [None Occasional /HPF Seen /HPF] *NA* (01/17/17 4:21 PM) UA Sq Epi [Few /LPF] Occasional /LPF *NA* (01/17/17 4:21 PM) HEMATOLOGY Most recent to 1 oldest [Reference Range]: WBC [3.7-10.4 K/CMM] 7.6 K/CMM (01/17/17 4:21 PM) RBC [4.20-5.40 5.00 M/CMM M/CMM] (01/17/17 4:21 PM) Hgb [12.0-16.0 g/dL] 13.6 g/dL (01/17/17 4:21 PM) Hct [36.0-48.0 %] 41.6 % (01/17/17 4:21 PM) MCV [80.0-98.0 fL] 83.2 fL (01/17/17 4:21 PM) MCH [27.0-31.0 pg] 27.1 pg (01/17/17 4:21 PM) MCHC [32.0-36.0 32.6 g/dL g/dL] (01/17/17 4:21 PM) RDW [11.5-14.5 %] 17.1 % *HI* (01/17/17 4:21 PM) Platelet [133-450 169 K/CMM K/CMM] (01/17/17 4:21 PM) MPV [7.4-10.4 fL] 9.2 fL (01/17/17 4:21 PM) Segs [45.0-75.0 %] 65.3 % (01/17/17 4:21 PM) Lymphocytes 28.1 % [20.0-40.0 %] (01/17/17 4:21 PM) Monocytes [2.0-12.0 5.2 % %] (01/17/17 4:21 PM) Eosinophils [0.0-4.0 0.9 % %] (01/17/17 4:21 PM) Basophils [0.0-1.0 0.5 % %] (01/17/17 4:21 PM) Segs-Bands # 4.9 K/CMM [1.5-8.1 K/CMM] (01/17/17 4:21 PM) Lymphocytes # 2.1 K/CMM [1.0-5.5 K/CMM] (01/17/17 4:21 PM) Monocytes # [0.0-0.8 0.4 K/CMM K/CMM] (01/17/17 4:21 PM) Eosinophils # 0.1 K/CMM [0.0-0.5 K/CMM] (01/17/17 4:21 PM) RBC Morph Normal (01/17/17 4:21 PM) Plt Morph Normal (01/17/17 4:21 PM) VIRAL - SEROLOGY Most recent to 1 oldest [Reference Range]: Influ A [Negative] Negative (01/17/17 4:52 PM) Influ B [Negative] Negative (01/17/17 4:52 PM) Immunizations Given and Recorded Vaccine Date Status Refusal Reason influenza virus vaccine, inactivated 06/19/16 G iven pneumococcal 23-valent vaccine 06/19/16 Given Procedures Procedure Date Related Diagnosis Body Site Cholecystectomy Hernia repair Tasha-en-y gastric bypass Social History Social History Type Response Alcohol Never Smoking Status Never smoker; Ready to dunaway ge: No; Concerns about tobacco use in household: No; Exposure to Tobacco Smoke None; Cig arette Smoking Last 365 Days No; Reg Smoking Cessation Counseling No Assessment and Plan No data available for this section
--- OUTSIDE RECORDS SUMMARY | 2019-09-06 11:33 | XMS REPORT | Summary of Care ---
Author Author [facility]ital Organization [facility] Address Unknown Phone Unavailable Encounter HQ Yajaira(FIN) [id number] Date(s): 10/18/16 - 11/16/16 [facility] [address] [place] [address]- Discharge Disposition: Home or Self Care Attending Physician: Jamie Archer MD Referring Physician: Jamie Archer MD Vital Signs 1 2 3 Most recent to oldest [Reference Range]: 167.6 cm (10/15/16 3:18 PM) Height 98.5 DegF (11/15/16 2:20 PM) 98.1 DegF (11/08/16 1:20 PM) 98.8 DegF (11/02/16 1:14 PM) Temperature Oral [96.4-99.1 DegF] 126/86 mmHg (11/15/16 2:20 PM) 113/74 mmHg (11/08/16 1:20 PM) 170/90 mmHg *HI* (11/02/16 1:14 PM) Blood Pressure [90-140/60-90 mmHg] 18 BRMIN (11/15/16 2:20 PM) 18 BRMIN (11/08/16 1:20 PM) 18 BRMIN (11/02/16 1:14 PM) Respiratory Rate [14-20 BRMIN] 78 bpm (11/15/16 2:20 PM) 69 bpm (11/08/16 1:20 PM) 53 bpm *LOW* (11/02/16 1:14 PM) Peripheral Pulse Rate [60-100 bpm] 88.12 kg (10/15/16 3:18 PM) Weight 31.37 m2 (10/15/16 3:18 PM) Body Mass Index Problem List Condition Effective Dates Status Health Status Informan t Anxiety(Confirmed) Active Diabetes(Confirmed) Active HLD Active (hyperlipidemia)(Con firmed) HTN Active (hypertension)(Confi rmed) Bipolar Active disorder(Confirmed) Nausea(Confirmed) Active Allergies, Adverse Reactions, Alerts Substance Reaction Severity Status lisinopril Active Medications Venofer + sodium chloride 0.9% INJ 90 mL 200 mg, 10 mL, Route: IV, ONCALL, Start date: 11/01/16 11:00:00 CDT, Duration: 1 0 hr, Stop date: 11/01/16 20:59:00 CDT Notes: Each 5ml contains 100mg elemental iron. Mix with NSNon-Formulary(Same as :Venofer)Administer IV only. MEDICATION WASTE Product Size: [address] Wasted: ___ mg Start Date: 11/01/16 Stop Date: 11/02/16 Status: Completed Venofer + sodium chloride 0.9% INJ 90 mL 200 mg, 10 mL, Route: IV, ONCALL, Start date: 10/18/16 11:00:00 CDT, Duration: 1 0 hr, Stop date: 10/18/16 20:59:00 CDT Notes: Each 5ml contains 100mg elemental iron. Mix with NSNon-Formulary(Same as :Venofer)Administer IV only. MEDICATION WASTE Product Size: [address] Wasted: ___ mg Start Date: 10/18/16 Stop Date: 10/18/16 Status: Completed Venofer + sodium chloride 0.9% INJ 90 mL 200 mg, 10 mL, Route: IV, ONCALL, Start date: 11/15/16 11:00:00 CDT, Duration: 1 0 hr, Stop date: 11/15/16 20:59:00 CDT Notes: Each 5ml contains 100mg elemental iron. Mix with NSNon-Formulary(Same as :Venofer)Administer IV only. MEDICATION WASTE Product Size: [address] Wasted: 0 mg Start Date: 11/15/16 Stop Date: 11/15/16 Status: Completed Venofer + sodium chloride 0.9% INJ 90 mL 200 mg, 10 mL, Route: IV, ONCALL, Start date: 10/25/16 11:00:00 CDT, Duration: 1 0 hr, Stop date: 10/25/16 20:59:00 CDT Notes: Each 5ml contains 100mg elemental iron. Mix with NSNon-Formulary(Same as :Venofer)Administer IV only. MEDICATION WASTE Product Size: [address] Wasted: ___ mg Start Date: 10/25/16 Stop Date: 10/25/16 Status: Completed Venofer + sodium chloride 0.9% INJ 90 mL 200 mg, 10 mL, Route: IV, ONCALL, Start date: 11/08/16 11:00:00 CDT, Duration: 1 0 hr, Stop date: 11/08/16 20:59:00 CDT Notes: Each 5ml contains 100mg elemental iron. Mix with NSNon-Formulary(Same as :Venofer)Administer IV only. MEDICATION WASTE Product Size: [address] Wasted: 0 mg Start Date: 11/08/16 Stop Date: 11/08/16 Status: Completed Results No data available for this section [...]
--- OUTSIDE RECORDS SUMMARY | 2019-09-06 11:33 | XMS REPORT | Continuity of Care Document ---
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 Role Phone Phone[employer] Information Exchange Unavailable Un available Problems Problem Status Onset Date Classification Date Reported Comments Source M54.16 RADICULOPATHY, LUMBAR REGION, M54 Active 02/13/2019 [facility] UNK Active 0 11/16/2018 [facility] Type 2 diabetes mellitus with hyperglycemia 03/01/2018 09/11/2018 [facility] Other disorder of circulatory system 02/22/2018 09/11/2018 [facility] Hyperglycemia, unspecified 02/22/2018 09/11/2018 [facility] Nausea with vomiting, unspecified 02/22/2018 09/11/2018 [facility] VOMITING Active 02/22/2018 [facility] Vomiting, unspecified 01/17/2017 01/20/2017 [facility] M79.89 Active 12/21/2016 [facility] VENOFER / 200MG / [id number] / [id number] / D50.9 Active 10/15/2016 [facility] ACUTE RENAL FAILURE Active 09/07/2016 [facility] N/V Active 0 09/07/2016 [facility] INTRACTABLE NAUSEA AND VOMITING Active 08/17/2016 [facility] SEVERE UNCONTROLLED HYPERTENSION Active 06/18/2016 [facility] AMS Active 0 06/18/2016 [facility] Unspecified abdominal pain 06/07/2016 06/10/2016 [facility] BACK PAIN Active 06/07/2016 [facility] Discharge Diagnosis: Acute esophagitis 01/19/2016 01/22/2016 [facility] Discharge Diagnosis: Nausea with vomiting 01/19/2016 01/22/2016 [facility] Discharge Diagnosis: Acid reflux 01/19/2016 01/22/2016 [facility] ABD PAIN/VOMITING Active 01/18/2016 [facility] Discharge Diagnosis: Right-sided chest wall pain 09/08/2014 09/11/2014 [facility] FLANK PAIN Active 09/08/2014 [facility] Anxiety (finding) Active Problem 02/25/2019 [facility] [place] [facility] Diabetes mellitus (disorder) A ctive Problem [facility] Hyperlipidemia (disorder) Acti ve Problem [facility] Hypertensive disorder, systemic arterial (disorder) Active Problem 02/25/2019 [facility] Bipolar disorder (disorder) Ac tive Problem [facility] Nausea (finding) Active Problem 02/25/2019 [facility] Degeneration of lumbar intervertebral disc (disorder) Active Problem 02/25/2019 [facility] Simple obesity (disorder) Acti ve Problem [facility] Essential (primary) hypertension 09/11/2018 [facility] Bariatric surgery status 09/11/2018 [facility] 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 09/11/2018 [facility] 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 09/11/2018 [facility] Other penitentiary (current) drug therapy 09/11/2018 [facility] ESSENTIAL (PRIMARY) HYPERTENSION Active [facility] NAUSEA WITH VOMITING, UNSPECIFIED Active [facility] ACUTE KIDNEY FAILURE, UNSPECIFIED Active [facility] IRON DEFICIENCY ANEMIA, UNSPECIFIED Active [facility] OTHER SPECIFIED SOFT TISSUE DISORDERS Active [facility] RADICULOPATHY, LUMBAR REGION A ctive [facility] Medications Medication Details Route Status Patient Instructions Ordering Provider Order Date Source Senokot 2 tab, Route: PO, Dosi ng Weight 97.784, kg, Daily, Start date: 12/12/18 9:00:00 CDT, Duration: 30 day, Stop date: 01/10/19 9:00:00 CDT No Longer Active 12/12/2018 [facility] heparin sodium, porcine 2500 UNT/ML Injectable Solutio n 5,000 unit, Route: SUB-Q, Drug form: INJ, Q12H, Dosing Weight 97.784, kg, Start date: 12/12/18 8:00:00 CDT, Duration: 30 day, Stop date: 01/10/19 21:00:00 CDT No Longer Active 12/12/2018 [facility] Famotidine 20 MG Oral Tablet [Pepcid] 20 mg, 1 tab, Route: PO, Drug form: TAB, Q12H, Dosing Weight 97.784, kg, Start date: 12/11/18 21:00:00 CDT, Duration: 30 day, Stop date: 01/10/19 9:00:00 CDT Inactive 12/12/2018 [facility] Docusate Sodium 100 MG Oral Capsule [Colace] 100 mg, 1 cap, Route: PO, BID, Dosing Weight 97.784, kg, Start date: 12/11/18 17:00:00 CDT, Duration: 30 day, Stop date: 01/10/19 9:00:00 CDT Inactive 12/11/2018 [facility] Oxycodone Hydrochloride 5 MG Oral Tablet 10 mg, Route: PO, Drug form: TAB, ONCE, Dosing Weight 97.784, kg, PRN Pain Score 7-10, Start date: 12/11/18 13:02:00 CDT Inactive 12/11/2018 [facility] ondansetron (ANES) Route: IV, Drug form: INJ, ONCE, Stop date: 12/11/18 12:00:00 CDT Inactive 12/11/2018 [facility] glycopyrrolate (ANES) Route: I V, Drug form: INJ, ONCE, Stop date: 12/11/18 12:00:00 CDT Inactive 12/11/2018 [facility] neostigmine (ANES) Route: IV, Drug form: INJ, ONCE, Stop date: 12/11/18 12:00:00 CDT Inactive 12/11/2018 [facility] metoclopramide ([facility]) Route: I V, Drug form: INJ, ONCE, Stop date: 12/11/18 12:00:00 CDT Inactive 12/11/2018 [facility] Acetaminophen 325 MG / Hydrocodone Derian trate 10 MG Oral Tablet [Custer 10/325] 1 tab, PO, Q6H, # 60 tab, 0 Refill(s), g iven to patient Active 12/11/2018 [facility] Sodium Chloride 0.9% IV 1000 mL 1,000 mL, Rate: 75 ml/hr, Infuse over: 13.3 hr, Route: IV, Dosing Weight 97.784 kg, Total Volume: 1,000, Start date: 12/11/18 11:49:00 CDT, Duration: 30 day, Stop date: 01/10/19 11:48:00 CDT, 2.16, m2 Inactiv e 12/11/2018 [facility] Cefazolin 1 gm, Route: IVPB, D rug form: INJ, Q8H, Dosing Weight 97.784, kg, Start date: 12/11/18 11:49:00 CDT, Duration: 3 doses or times, Stop date: 12/12/18 0:00:00 CDT, ABX Indication: Surgical Prophylaxis Inactive 12/11/2018 [facility] Tylenol 650 mg, Route: PO, Jose g form: TAB, Q4H, Dosing Weight 97.784, kg, PRN Pain, Start date: 12/11/18 11:49:00 CDT, Duration: 30 day, Stop date: 01/10/19 11:48:00 CDT Inactive 12/11/2018 [facility] Dilaudid 0.5 mg, Route: IV, Q3 H, Dosing Weight 97.784, kg, PRN Pain, Start date: 12/11/18 11:49:00 CDT, Duration: 30 day, Stop date: 01/10/19 11:48:00 CDT Inactive 12/11/2018 [facility] Acetaminophen 325 MG / Hydrocodone Derian trate 5 MG Oral Tablet 1 tab, Route: PO, Drug Form: TAB, Dosing Weight 97.784, kg, Q4H, PRN Pain, Start date: 12/11/18 11:49:00 CDT, Duration: 30 day, Stop date: 01/10/19 11:48:00 CDT Inactive 12/11/2018 [facility] Zofran 4 mg, Route: IV, Drug f orm: INJ, Q8H, Dosing Weight 97.784, kg, PRN Nausea, Start date: 12/11/18 11:49:00 CDT, Duration: 30 day, Stop date: 01/10/19 11:48:00 CDT Inactive 12/11/2018 [facility] magnesium citrate 300 ml, Rout e: PO, Drug Form: LIQ, Dosing Weight 97.784, kg, ONCE, PRN Constipation, Start date: 12/11/18 11:49:00 CDT Inactive 12/11/2018 [facility] lidocaine (ANES) Route: IV, Dr ug form: INJ, ONCE, Stop date: 12/11/18 11:19:00 CDT Inactive 12/11/2018 [facility] rocuronium (ANES) Route: IV, D rug form: INJ, ONCE, Stop date: 12/11/18 11:14:00 CDT Inactive 12/11/2018 [facility] fentaNYL (ANES) Route: IV, Jose g form: INJ, ONCE, Stop date: 12/11/18 11:03:00 CDT Inactive 12/11/2018 [facility] ceFAZolin (ANES) Route: IV, Dr ug form: INJ, ONCE, Stop date: 12/11/18 11:03:00 CDT Inactive 12/11/2018 [facility] propofol (ANES) Route: IV, Jose g form: INJ, ONCE, Stop date: 12/11/18 11:03:00 CDT Inactive 12/11/2018 [facility] midazolam (ANES) Route: IV, Dr ug form: SOLN, ONCE, Stop date: 12/11/18 10:58:00 CDT Inactive 12/11/2018 [facility] Lactated Ringers Injection IV (ANES) 1000 mL Route: IV, Total Volume: 1,000, Start date: 12/11/18 10:28:00 CDT, Stop date: 12/11/18 11:28:00 CDT Inactive 12/11/2018 [facility] Insulin regular 3 unit, Route: IV, ONCE, Dosing Weight 97.784, kg, Start date: 12/11/18 10:04:00 CDT, Stop date: 12/11/18 10:04:00 CDT Inactive 12/11/2018 [facility] Calcium Chloride 0.0014 MEQ/ML / Potassi um Chloride 0.004 MEQ/ML / Sodium Chloride 0.103 MEQ/ML / Sodium Lactate 0.028 MEQ/ML Injectable Solution 1,000 mL, Rate: 75 ml/hr, Infuse over: 1 3.3 hr, Route: IV, Dosing Weight 97.784 kg, Total Volume: 1,000, Start date: 12/11/18 9:38:00 CDT, Duration: 30 day, Stop date: 01/10/19 9:37:00 CDT, 2.16, m2 Inactive 12/11/2018 [facility] Sodium Chloride 0.9% IV 1000 mL 1,000 mL, Rate: 75 ml/hr, Infuse over: 13.3 hr, Route: IV, Dosing Weight 97.784 kg, Total Volume: 1,000, Start date: 12/11/18 9:38:00 CDT, Duration: 30 day, Stop date: 01/10/19 9:37:00 CDT, 2.16, m2 Inactive 12/11/2018 [facility] Insulin regular 5 unit, Route: IV, ONCE, Dosing Weight 97.784, kg, Start date: 12/11/18 9:30:00 CDT, Stop date: 12/11/18 9:30:00 CDT Inactive 12/11/2018 [facility] Clonidine 0 Refill(s) Active 11/14/2018 [facility] gabapentin 300 MG Oral Capsule 300 mg = 1 cap, PO, TID, 0 Refill(s) Active 11/14/2018 [facility] Zolpidem tartrate 10 MG Oral Tablet [Ambien] 10 mg = 1 tab, PO, Bedtime, 0 Refill(s) Active 11/14/2018 [facility] tizanidine PO, 0 Refill(s) Active 11/14/2018 [facility] Acetaminophen 325 MG / Hydrocodone Derian trate 10 MG Oral Tablet [Custer 10/325] 1 tab, PO, Q6H, 0 Refill(s) Active 11/14/2018 [facility] Losartan PO, Daily, 0 Refill(s) Active 11/14/2018 [facility] ARIPiprazole 0 Refill(s) Active 11/14/2018 [facility] Metformin hydrochloride 500 MG Oral Tablet 500 mg = 1 tab, PO, BID-Meals, # 60 tab, 0 Refill(s) Active 02/23/2018 [facility] Clonidine Hydrochloride 0.1 MG Oral Tablet 0.1 mg = 1 tab, PO, BID, # 60 tab, 3 Refill(s) Active 02/23/2018 [facility] Ondansetron 4 MG Oral Tablet [Zofran] 4 mg = 1 tab, PO, BID, # 10 tab, 0 Refill(s) Active 02/23/2018 [facility] Sodium Chloride 0.9% (Bolus) IV 1,000 mL, 1000 ml/hr, Infuse Over: 1 hr, Route: IV, 1,000, Drug form: INJ, ONCE, Priority: STAT, Dosing Weight 81.818 kg, Start date: 02/22/18 18:33:00 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, Stop date: 02/22/18 18:33:00 OPHTHALMIC 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 Inactive 02/23/2018 [facility] Atenolol Notes: (Same As: min) Inactive 02/23/2018 [facility] Clonidine Notes: (Same As: Cat apres) Inactive 02/23/2018 [facility] Sodium Chloride 0.9% (Bolus) IV 1,000 mL, 1000 ml/hr, Infuse Over: 1 hr, Route: IV, 1,000, Drug form: INJ, ONCE, Priority: STAT, Dosing Weight 81.818 kg, Start date: 02/22/18 18:31:00 OPHTHALMIC 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, Stop date: 02/22/18 18:31:00 OPHTHALMIC 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 Inactive 02/23/2018 [facility] Labetalol 10 mg, 2 mL, Route: IV, Drug form: INJ, ONCE, Dosing Weight 81.818, kg, Start date: 02/22/18 17:05:00 OPHTHALMIC 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, Stop date: 02/22/18 17:05:00 OPHTHALMIC 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 Inactive 02/22/2018 [facility] Sodium Chloride 0.9% IV 984.8 mL + M.V.I .-12 10 mL Daily + folic acid IV 1 mg Daily + thiamine IV 5 984.8 mL, Rate: 100 ml/hr, Infuse over: 10 hr, Route: IV, Dosing Weight 81.818 kg, Total Volume: 1,000, Start date: 02/22/18 17:02:00 OPHTHALMIC 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, Duration: 1 doses or times, Stop date: 02/23/18 3:01:00 OPHTHALMIC 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, 1.97, m2 Inactive 02/22/2018 [facility] Sodium Chloride 0.9% (Bolus) IV 1,000 mL, 1000 ml/hr, Infuse Over: 1 hr, Route: IV, 1,000, Drug form: INJ, ONCE, Priority: STAT, Dosing Weight 81.818 kg, Start date: 02/22/18 16:59:00 OPHTHALMIC 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, Stop date: 02/22/18 16:59:00 OPHTHALMIC 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 Inactive 02/22/2018 [facility] Zofran Notes: (Same as: Zofran ) MEDICATION WASTE Product Size: 4 mg Product Wasted: ___ mg Inactive 02/22/2018 [facility] Sodium Chloride 0.9% IV 984.8 mL + M.V.I .-12 10 mL Daily + folic acid IV 1 mg Daily + thiamine IV 5 Notes: PROTECT FROM LIGHT REFRIGERATE Inactive 02/22/2018 [facility] Ondansetron 4 MG Oral Tablet [Zofran] 4 mg = 1 tab, PO, BID, # 10 tab, 0 Refill(s) Active 01/18/2017 [facility] Ranitidine 150 MG Oral Tablet [Zantac] 150 mg = 1 tab, PO, BID, # 60 tab, 0 Refill(s) Active 01/18/2017 [facility] GI cocktail 30 mL, Route: PO, Dosing Weight 91.818, kg, ONCE, STAT, Start date: 01/17/17 20:34:00 CDT, Stop date: 01/17/17 20:34:00 CDT Inactive 01/18/2017 [facility] Morphine 4 mg, Route: IVP, ONC E, Dosing Weight 91.818, kg, Priority: STAT, Start date: 01/17/17 16:43:00 CDT, Stop date: 01/17/17 16:43:00 CDT Inactive 01/17/2017 [facility] Ondansetron 4 mg, Route: IVP, Drug form: INJ, ONCE, Dosing Weight 91.818, kg, Priority: STAT, Start date: 01/17/17 16:43:00 CDT, Stop date: 01/17/17 16:43:00 CDT Inactive 01/17/2017 [facility] NS (Bolus) IV 1,000 mL, 1,000 ml/hr, Infuse Over: 1 hr, Route: IV, 1,000, Drug form: INJ, ONCE, Priority: STAT, Dosing Weight 91.818 kg, Start date: 01/17/17 13:56:00 CDT, Duration: 1 doses or times, Stop date: 13:56:00 CDT Inactive 01/17/2017 [facility] sodium chloride 0.9% 1000 ml INJ 984.8 m L + M.V.I.-12 10 mL Daily + folic acid IV 1 mg Daily + thia Notes: send to 2E Inactive 01/17/2017 [facility] Saline Flush 0.9% Notes: (Same as: BD Posiflush) Inactive 01/17/2017 [facility] Venofer + sodium chloride 0.9% INJ 90 mL Notes: Each 5ml contains 100mg elemental iron. Mix with NS Non-Formulary (Same as:Venofer) Administer IV only. MEDICATION WASTE Product Size: 100 mg Product Wasted: 0 mg Inactive 11/15/2016 [facility] Venofer + sodium chloride 0.9% INJ 90 mL Notes: Each 5ml contains 100mg elemental iron. Mix with NS Non-Formulary (Same as:Venofer) Administer IV only. MEDICATION WASTE Product Size: 100 mg Product Wasted: 0 mg Inactive 11/08/2016 [facility] Venofer + sodium chloride 0.9% INJ 90 mL Notes: Each 5ml contains 100mg elemental iron. Mix with NS Non-Formulary (Same as:Venofer) Administer IV only. MEDICATION WASTE Product Size: 100 mg Product Wasted: ___ mg No Longer Active 11/01/2016 [facility] Venofer + sodium chloride 0.9% INJ 90 mL Notes: Each 5ml contains 100mg elemental iron. Mix with NS Non-Formulary (Same as:Venofer) Administer IV only. MEDICATION WASTE Product Size: 100 mg Product Wasted: ___ mg Inactive 10/25/2016 [facility] Venofer + sodium chloride 0.9% INJ 90 mL Notes: Each 5ml contains 100mg elemental iron. Mix with NS Non-Formulary (Same as:Venofer) Administer IV only. MEDICATION WASTE Product Size: 100 mg Product Wasted: ___ mg Inactive 10/18/2016 [facility] amLODIPine 10 mg oral tablet 1 0 mg = 1 tab, PO, Daily, # 90 tab, 1 Refill(s), Pharmacy: [facility] [place] [id number] Active 09/10/2016 [facility] Atenolol 50 MG Oral Tablet 50 mg = 1 tab, PO, BID, # 60 tab, 2 Refill(s), [place] [facility] [place] [id number] [place] 09/10/2016 [facility] Lurasidone Hydrochloride 80 MG Oral Tablet [Latuda] 80 mg, PO, Daily, 0 Refill(s) Active 09/10/2016 [facility] insulin detemir 100 units/mL subcutaneous solution 8 unit, SUB-Q, Bedtime, # 15 mL, 0 Refill(s) Active 09/10/2016 [facility] Insulin Aspart 100 unit/ml - (Starting CD) 8 unit, SUB- Q, TID-Before Meals, # 30 mL, 0 Refill(s), [place] [facility] [place] [id number] [place] 09/10/2016 [facility] Clonidine Hydrochloride 0.1 MG Oral Tablet 140, # 60 tab, 2 Refill(s), Pharmacy: [facility] [id number] Active 09/10/2016 [facility] Ondansetron 4 MG Oral Tablet [Zofran] 4 mg = 1 tab, PO, Q6H, PRN Nausea/Vomiting, X 8 day, # 30 tab, 0 Refill(s) Active 09/09/2016 [facility] Amlodipine Notes: (Same as: No rvasc) Inactive 09/09/2016 [facility] Insulin Glargine 100 UNT/ML Injectable S olution [Lantus] 8 unit, Route: SUB-Q, Bedtime, Dosing We ight 88.182, kg, Start date: 09/08/16 21:00:00 CDT, Duration: 30 day, Stop date: 10/07/16 21:00:00 CDT Inactive 09/09/2016 [facility] insulin detemir Notes: Same as Levemir Do not hold insulin without contacting prescriber WASTE: F/P - Black; E - Municipal Trash Bin "single patient use only" No Longer Active 09/09/2016 [facility] Clonidine Hydrochloride 0.1 MG Oral Tablet Notes: (Same As: Catapres) No Longer Active 09/08/2016 [facility] Humalog 8 unit, Route: SUB-Q, TID-Before Meals, Dosing Weight 88.182, kg, Start date: 09/08/16 16:30:00 CDT, Duration: 30 day, Stop date: 10/08/16 11:30:00 CDT Inactive 09/08/2016 [facility] insulin aspart Notes: Roll in palms of hands gently; Do not shake vigorously. (Same as: NovoLOG) "single patient use only" WASTE: F/P - Black; E - Municipal Trash Bin Stable for 28 days at room temperature. Expires in days from Date No Longer Active 09/08/2016 [facility] Atenolol 50 MG Oral Tablet Not es: (Same As:Tenormin) No Longer Active 09/08/2016 [facility] Amlodipine Notes: (Same as: No rvasc) No Longer Active 09/08/2016 [facility] Losartan Notes: (Same as: Gerardo swanson) No Longer Active 09/08/2016 [facility] Latuda 80 mg, Route: PO, Drug form: TAB, Daily, Dosing Weight 88.182, kg, Start date: 09/08/16 9:00:00 CDT, Duration: 30 day, Stop date: 10/07/16 9:00:00 CDT No Longer Active 09/08/2016 [facility] Nurse pls bring pt's own med: Latuda to pharmacy Nurse pls bring pt's own med: Latuda to pharmacy, reminder, Drug form: MISC, Route: MISC, QSHIFT, 09/08/16 8:00:00 CDT, Duration: 30 day, Stop date: 10/08/16 0:00:00 CDT No Longer Active 09/08/2016 [facility] Protonix Notes: For IV push re constitute with 10 ml 0.9% sodium chloride and push over 2 minutes. (Same as: Protonix) No Longer Active 09/08/2016 [facility] Phenergan Notes: Do not give I V push. (Same as: Phenergan) No Longer Active 09/08/2016 [facility] zolpidem Notes: (Same As: Ambi en) No Longer Active 09/08/2016 [facility] zolpidem 10 mg, Route: PO, Jose g form: TAB, Bedtime, Dosing Weight 88.182, kg, PRN Sleep, Start date: 09/08/16 4:51:00 CDT, Duration: 30 day, Stop date: 10/08/16 4:50:00 CDT Inactive 09/08/2016 [facility] Insulin, Aspart, Human Notes: Roll in palms of hands gently; Do not shake vigorously. (Same as: NovoLOG) "single patient use only" WASTE: F/P - Black; E - Big Super Search Trash Bin Stable for 28 days at room temperature. Expires in days from Date No Longer Active 09/08/2016 [facility] Dextrose 50% Syringe 12.5 gm, 25 mL, Route: IVP, Drug Form: INJ, Dosing Weight 88.182, kg, PRN, PRN Blood Glucose Results, Start date: 09/08/16 4:49:00 CDT, Duration: 30 day, Stop date: 10/08/16 4:48:00 CDT No Longer Active 09/08/2016 [facility] Glucagon 1 mg, Route: IM, Drug form: PDR/INJ, PRN, Dosing Weight 88.182, kg, PRN Blood Glucose Results, Start date: 09/08/16 4:49:00 CDT, Duration: 30 day, Stop date: 10/08/16 4:48:00 CDT No Longer Active 09/08/2016 [facility] Sodium Chloride 0.154 MEQ/ML Injectable Solution 1,000 mL, Rate: 125 ml/hr, Infuse over: 8 hr, Route: IV, Dosing Weight 88.182 kg, Total Volume: 1,000, Start date: 09/08/16 4:47:00 CDT, Duration: 30 day, Stop date: 10/08/16 4:46:00 CDT No Longer Active 09/08/2016 [facility] Saline Flush 0.9% Notes: (Same as: BD Posiflush) No Longer Active 09/08/2016 [facility] Ondansetron Notes: (Same as: Jace kingsley) MEDICATION WASTE Product Size: 4 mg Product Wasted: ___ mg No Longer Active 09/08/2016 [facility] Morphine Notes: (Same as:MORPh ine Sulfate) No Longer Active 09/08/2016 [facility] Acetaminophen 325 MG / Hydrocodone Derian trate 5 MG Oral Tablet Notes: (Same as: Custer 325/5) Do not ex ceed 4gm/day of acetaminophen. No Longer Active 09/08/2016 [facility] Metoclopramide 10 mg, Route: I FOUR SLIDE MACHINE SETTER, Drug form: INJ, ONCE, Dosing Weight 88.182, kg, Priority: STAT, Start date: 09/08/16 2:44:00 CDT, Stop date: 09/08/16 2:44:00 CDT Inactive 09/08/2016 [facility] Sodium Chloride 0.154 MEQ/ML Injectable Solution 1,000 mL, Infuse Over: 1 hr, Route: IV, ONCE, Priority: STAT, Dosing Weight 88.182 kg, Start date: 09/08/16 2:15:00 CDT, Duration: 1 doses or times, Stop date: 09/08/16 2:15:00 CDT Inactive 09/08/2016 [facility] Zofran 4 mg, Route: IVP, Drug form: INJ, ONCE, Dosing Weight 88.182, kg, Priority: STAT, Start date: 09/08/16 0:49:00 CDT, Stop date: 09/08/16 0:49:00 CDT Inactive 09/08/2016 [facility] Morphine 4 mg, Route: IVP, ONC E, Dosing Weight 88.182, kg, Priority: STAT, Start date: 09/08/16 0:49:00 CDT, Stop date: 09/08/16 0:49:00 CDT Inactive 09/08/2016 [facility] Protonix Notes: Tablet should not be chewed or crushed. (Same as: Protonix) No Longer Active 08/21/2016 [facility] Vitamin C Notes: (Same as: Vit fink C) No Longer Active 08/21/2016 [facility] ascorbic acid 500 mg oral tablet 500 mg = 1 tab, PO, Daily, # 30 tab, 0 Refill(s) Active 08/20/2016 [facility] Atenolol 25 MG Oral Tablet 50 mg = 2 tab, PO, Daily, # 30 tab, 0 Refill(s) Active 08/20/2016 [facility] ferrous sulfate 325 mg oral enteric coated tablet 325 mg = 1 tab, PO, TID, # 90 tab, 0 Refill(s) Active 08/20/2016 [facility] pantoprazole 40 mg oral enteric coated tablet 40 mg = 1 tab, PO, Before Dinner, # 30 tab, 0 Refill(s) Active 08/20/2016 [facility] thiamine 100 mg oral tablet 10 0 mg = 1 tab, PO, Daily, # 30 tab, 0 Refill(s) Inactive 08/20/2016 [facility] ferrous sulfate Notes: Give wi th food. "Do Not Crush" Inactive 08/20/2016 [facility] multivitamin with iron Notes: Same as Iron/C/B12/FA/SA Inactive 08/20/2016 [facility] Thiamine 100 mg, Route: PO, Dr ug form: TAB, Daily, Dosing Weight 91.364, kg, Start date: 08/20/16 9:00:00 CDT, Duration: 30 day, Stop date: 09/18/16 9:00:00 CDT No Longer Active 08/20/2016 [facility] Protonix Notes: For IV push re constitute with 10 ml 0.9% sodium chloride and push over 2 minutes. (Same as: Protonix) Inactive 08/20/2016 [facility] [facility] at[facility] 25 mg oral tablet Not es: (Same As:Tenormin) No Longer Active 08/20/2016 [facility] amLODIPine Notes: (Same as: No rvasc) No Longer Active 08/20/2016 [facility] Sodium Chloride 0.154 MEQ/ML Injectable Solution 1,000 mL, Rate: 25 ml/hr, Infuse over: 40 hr, Route: IV, Dosing Weight 91.364 kg, Total Volume: 1,000, Start date: 08/19/16 14:44:00 CDT, Duration: 30 day, Stop date: 09/18/16 14:43:00 CDT Inactive 08/19/2016 [facility] Vasotec Notes: (Same as: Vasot ec-IV) No Longer Active 08/19/2016 [facility] Atenolol 25 MG Oral Tablet [Tenormin] Notes: (Same As:Tenormin) No Longer Active 08/18/2016 [facility] zolpidem Notes: (Same As: Ambi en) No Longer Active 08/18/2016 [facility] metFORMIN extended release Not es: (Same as: Glucophage XR) "Do Not Crush" No Longer Active 08/18/2016 [facility] Latuda 80 mg, Route: PO, Drug form: TAB, Daily, Dosing Weight 91.364, kg, Start date: 08/18/16 9:00:00 CDT, Duration: 30 day, Stop date: 09/16/16 9:00:00 CDT No Longer Active 08/18/2016 [facility] Losartan Notes: (Same as: Coza ar) No Longer Active 08/18/2016 [facility] Klonopin Notes: (Same As: Klon oPIN) No Longer Active 08/18/2016 [facility] Amlodipine Notes: (Same as: No rvasc) No Longer Active 08/18/2016 [facility] Insulin, Aspart, Human Notes: Roll in palms of hands gently; Do not shake vigorously. (Same as: NovoLOG) "single patient use only" WASTE: F/P - Black; E - Municipal Trash Bin Stable for 28 days at room temperature. Expires in days from Date No Longer Active 08/18/2016 [facility] Dextrose 50% Syringe 25 gm, 50 mL, Route: IVP, Drug Form: INJ, Dosing Weight 91.364, kg, PRN, PRN Blood Glucose Results, Start date: 08/18/16 8:40:00 CDT, Duration: 30 day, Stop date: 09/17/16 8:39:00 CDT No Longer Active 08/18/2016 [facility] Glucagon 1 mg, Route: IM, Drug form: PDR/INJ, PRN, Dosing Weight 91.364, kg, PRN Blood Glucose Results, Start date: 08/18/16 8:40:00 CDT, Duration: 30 day, Stop date: 09/17/16 8:39:00 CDT No Longer Active 08/18/2016 [facility] zolpidem 10 mg, Route: PO, Jose g form: TAB, Bedtime, Dosing Weight 91.364, kg, PRN Sleep, Start date: 08/18/16 8:38:00 CDT, Duration: 30 day, Stop date: 09/17/16 8:37:00 CDT Inactive 08/18/2016 [facility] Magnesium Sulfate Notes: WASTE : F/P - Sink; E - Municipal Trash Bin Inactive 08/18/2016 [facility] sodium chloride 0.9% 1000 ml INJ 1,000 mL 1,000 mL, Rate: 125 ml/hr, Infuse over: 8 hr, Route: IV, Dosing Weight 91.364 kg, Total Volume: 1,000, Start date: 08/18/16 1:58:00 CDT, Duration: 30 day, Stop date: 09/17/16 1:57:00 CDT No Longer Active 08/18/2016 [facility] Zofran Notes: (Same as: Zofran ) MEDICATION WASTE Product Size: 4 mg Product Wasted: ___ mg No Longer Active 08/18/2016 [facility] Phenergan Notes: Do not give I V push. (Same as: Phenergan) No Longer Active 08/18/2016 [facility] Morphine Notes: (Same as:MORPh ine Sulfate) No Longer Active 08/18/2016 [facility] Clonazepam 0.5 MG Oral Tablet [Klonopin] 0.5 mg = 1 tab, PO, BID, # 60 tab, 0 Refill(s) Active 08/18/2016 [facility] Morphine 4 mg, Route: IVP, ONC E, Dosing Weight 91.364, kg, Priority: STAT, Start date: 08/17/16 23:55:00 CDT, Stop date: 08/17/16 23:55:00 CDT Inactive 08/18/2016 [facility] Protonix 40 mg, Route: IVP, ON CE, Dosing Weight 91.364, kg, Priority: STAT, Start date: 08/17/16 21:54:00 CDT, Stop date: 08/17/16 21:54:00 CDT Inactive 08/18/2016 [facility] Sodium Chloride 0.154 MEQ/ML Injectable Solution 1,000 mL, Infuse Over: 1 hr, Route: IV, ONCE, Priority: STAT, Dosing Weight 91.364 kg, Start date: 08/17/16 21:54:00 CDT, Duration: 1 doses or times, Stop date: 08/17/16 21:54:00 CDT Inactive 08/18/2016 [facility] Promethazine 12.5 mg, Route: I VPB, ONCE, Dosing Weight 91.364, kg, Priority: STAT, Start date: 08/17/16 21:54:00 CDT, Stop date: 08/17/16 21:54:00 CDT Inactive 08/18/2016 [facility] Zofran 4 mg, Route: IVP, Drug form: INJ, ONCE, Dosing Weight 91.364, kg, Priority: STAT, Start date: 08/17/16 21:16:00 CDT, Stop date: 08/17/16 21:16:00 CDT Inactiv e 08/18/2016 [facility] Sodium Chloride 0.154 MEQ/ML Injectable Solution 1,000 mL, Infuse Over: 1 hr, Route: IV, ONCE, Priority: STAT, Dosing Weight 91.364 kg, Start date: 08/17/16 20:13:00 CDT, Duration: 1 doses or times, Stop date: 08/17/16 20:13:00 CDT Inactive 08/18/2016 [facility] Morphine Notes: (Same as:MORPh ine Sulfate) Inactive 08/18/2016 [facility] Sodium Chloride 0.154 MEQ/ML Injectable Solution 1,000 mL, 1,000 ml/hr, Infuse Over: 1 hr, Route: IV, 1,000, Drug form: INJ, ONCE, Priority: STAT, Dosing Weight 90.2 kg, Start date: 08/17/16 18:26:00 CDT, Duration: 1 doses or times, Stop date: 08/17/16 18:26:00 CDT Inactive 08/17/2016 [facility] Zofran Notes: (Same as: Zofran ) MEDICATION WASTE Product Size: 4 mg Product Wasted: ___ mg Inactive 08/17/2016 [facility] 24 HR venlafaxine 75 MG Extended Release Capsule [Effexor] 75 mg = 1 cap, PO, Daily, # 30 cap, 0 Refill(s) Active 06/20/2016 [facility] venlafaxine Notes: (Same As: E ffexor) Inactive 06/20/2016 [facility] latuda 80mg tab latuda 80mg ta b, 1 tab, Drug form: MISC, Route: PO, Daily, 06/20/16 9:00:00 CDT, Duration: 30 day, Stop date: 07/19/16 9:00:00 CDT Inactive 06/20/2016 [facility] Amlodipine Notes: (Same as: No rvasc) No Longer Active 06/20/2016 [facility] Clonidine Hydrochloride 0.1 MG Oral Tablet Notes: (Same As: Catapres) No Longer Active 06/20/2016 [facility] Latuda 80 mg, Route: PO, Daily , Dosing Weight 90.2, kg, Start date: 06/19/16 19:31:00 CDT, Duration: 30 day, Stop date: 07/19/16 9:00:00 CDT Inactive 06/20/2016 [facility] Tylenol Notes: Do not exceed 4 gm/day. (Same as: Tylenol) No Longer Active 06/19/2016 [facility] Protonix Notes: Tablet should not be chewed or crushed. (Same as: Protonix) No Longer Active 06/19/2016 [facility] Lorazepam Notes: (Same as: Gertrude hdez) Inactive 06/19/2016 [facility] Zofran Notes: (Same as: Zofran ) MEDICATION WASTE Product Size: 4 mg Product Wasted: ___ mg No Longer Active 06/19/2016 [facility] Lurasidone Hydrochloride 80 MG Oral Tablet [Latuda] 80 mg = 1 tab, PO, Daily, 0 Refill(s) Active 06/19/2016 [facility] Losartan Notes: (Same as: Gerardo swanson) No Longer Active 06/19/2016 [facility] Fluoxetine Route: PO, Drug for m: CAP, Daily, Dosing Weight 90.2, kg, Start date: 06/19/16 9:00:00 CDT, Duration: 30 day, Stop date: 07/18/16 9:00:00 CDT Inactive 06/19/2016 [facility] Benztropine Notes: (Same As: Barbra mcleod) No Longer Active 06/19/2016 [facility] pneumococcal capsular polysaccharide typ e 1 vaccine / pneumococcal capsular polysaccharide type 10A vaccine / pneumococcal capsular polysaccharide type 11A vaccine / pneumococcal capsular polysaccharide type 12F vaccine / pneumococcal capsular polysacchar Notes: (Same as: Pneumovax 23) Refrigerate Inactive 06/19/2016 [facility] influenza virus vaccine, inactivated Notes: (Same as: Fluzone Quadrivalent, Fluarix Quadrivalent) For 3 years of age and older (0.5 mL IM) Shake well before use Inactive 06/19/2016 [facility] venlafaxine Notes: (Same As: Candelaria ffexor) Inactive 06/19/2016 [facility] Omeprazole 40 mg, Route: PO, D rug form: DRC, Daily, Dosing Weight 90.2, kg, Start date: 06/19/16 9:00:00 CDT, Duration: 30 day, Stop date: 07/18/16 9:00:00 CDT Inactive 06/19/2016 [facility] metFORMIN extended release Not es: (Same as: Glucophage XR) "Do Not Crush" No Longer Active 06/19/2016 [facility] benztropine 2 mg oral tablet 1 /2 tablet, PO, BID, 0 Refill(s) Active 06/19/2016 [facility] amLODIPine 5 mg oral tablet 5 mg = 1 tab, PO, Bedtime, 0 Refill(s) Active 06/19/2016 [facility] losartan 100 mg oral tablet 10 0 mg = 1 tab, PO, Daily, 0 Refill(s) Active 06/19/2016 [facility] FLUoxetine 20 mg oral capsule 4, PO, Daily, 0 Refill(s) Inactive 06/19/2016 [facility] zolpidem 10 mg oral tablet 10 mg = 1 tab, PO, Bedtime, PRN as needed for sleep, 0 Refill(s) Active 06/19/2016 [facility] metFORMIN extended release 500 mg, PO, Daily, 0 Refill(s) Active 06/19/2016 [facility] venlafaxine 37.5 mg oral tablet, extended release 37.5 mg = 1 tab, PO, Daily, 0 Refill(s) No Longer Active 06/19/2016 [facility] Labetalol Notes: (Same as: Arie lawrence Trandate) Push over 2 minutes Give bolus over 2-3 minutes. Inactive 06/19/2016 [facility] Cardura Notes: (Same as: Maribel suresh) Inactive 06/19/2016 [facility] Hydralazine Notes: (Same as: A presoline) Push over 5 minutes Inactive 06/19/2016 [facility] Prazosin 2 mg, Route: PO, ONCE , Dosing Weight 81.818, kg, Start date: 06/19/16 2:11:00 CDT, Stop date: 06/19/16 2:11:00 CDT Inactive 06/19/2016 [facility] Heparin 40 unit/kg Bolus (Heparin Dosing Weight) Pharmacy To Manage, Route: IVP, PRN, Drug form: INJ, PRN, Heparin Protocol, Start date: 06/19/16 2:06:00 CDT Stop date: 07/19/16 2:05:00 CDT, 30 day Inactive 06/19/2016 [facility] heparin additive 25,000 unit [18 unit/kg /hr] + Premix Diluent Dextrose 5% 500 mL 500 mL, Rate: 29.45 ml/hr, Infuse over: 17 hr, Route: IV, Dosing Weight 81.818 kg, Total Volume: 500 mL, Start date: 06/19/16 2:06:00 CDT, Duration: 30 day, Stop date: 07/19/16 2:05:00 CDT Inactive 06/19/2016 [facility] Heparin - one time bolus for DVT/PE 5,000 unit, Route: IVP, Drug form: INJ, ONCE, Dosing Weight 81.818, kg, Priority: STAT, Start date: 06/19/16 2:06:00 CDT, Stop date: 06/19/16 2:06:00 CDT Inactive 06/19/2016 [facility] Heparin 80 unit/kg Bolus (Heparin Dosing Weight) Pharmacy To Manage, Route: IVP, PRN, Drug form: INJ, PRN, Heparin Protocol, Start date: 06/19/16 2:06:00 CDT Stop date: 07/19/16 2:05:00 CDT, 30 day Inactive 06/19/2016 [facility] Labetalol 20 mg, Route: IVP, D rug form: INJ, ONCE, Dosing Weight 81.818, kg, Priority: STAT, Start date: 06/19/16 1:54:00 CDT, Stop date: 06/19/16 1:54:00 CDT Inactive 06/19/2016 [facility] Lorazepam 1 mg, Route: IVP, Dr ug form: INJ, ONCE, Dosing Weight 81.818, kg, Priority: STAT, Start date: 06/19/16 1:54:00 CDT, Stop date: 06/19/16 1:54:00 CDT Inactive 06/19/2016 [facility] Hydralazine Notes: (Same as: A presoline) Push over 5 minutes No Longer Active 06/19/2016 [facility] Saline Flush 0.9% Notes: (Same as: BD Posiflush) No Longer Active 06/19/2016 [facility] Ondansetron 4 MG Oral Tablet [Zofran] 4 mg = 1 tab, PO, BID, X 5 day, # 10 tab, 0 Refill(s) Active 06/07/2016 [facility] tramadol hydrochloride 50 MG Oral Tablet [Ultram] 50 mg = 1 tab, PO, Q4H, PRN pain, X 3 day, # 20 tab, 0 Refill(s) Active 06/07/2016 [facility] Zofran Notes: (Same as: Zofran ) MEDICATION WASTE Product Size: 4 mg Product Wasted: ___ mg Inactive 06/07/2016 [facility] Morphine Notes: (Same as:MORPh ine Sulfate) Inactive 06/07/2016 [facility] omeprazole 40 mg oral delayed release capsule 40 mg = 1 cap, PO, Daily, # 30 cap, 1 Refill(s) Active 01/19/2016 [facility] promethazine 25 mg oral tablet 25 mg = 1 tab, PO, Q8H, PRN Nausea/Vomiting, X 10 day, # 30 tab, 1 Refill(s) Active 01/19/2016 [facility] GI cocktail 30 mL, Route: PO, Dosing Weight 100, kg, ONCE, STAT, Start date: 01/19/16 6:27:00 CDT, Stop date: 01/19/16 6:27:00 CDT Inactive 01/19/2016 [facility] Zofran 8 mg, Route: IV, ONCE, Dosing Weight 100, kg, Start date: 01/19/16 6:20:00 CDT, Stop date: 01/19/16 6:20:00 CDT Inactive 01/19/2016 [facility] sodium chloride 0.9% INJ 250 mL 250 mL, Rate: Slide Fasteners Inspector for use with blood product administration., Dosing Weight 100, kg, Route: IV, Total Volume: 250, Priority: Routine, Start Date: 01/19/16 2:13:00 CDT, Duration: 1 day, Stop date: 01/20/16 2:12:00 CDT, Replace Every: 24 hr Inactive 01/19/2016 [facility] Morphine 4 mg, Route: IVP, ONC E, Dosing Weight 100, kg, Priority: STAT, Start date: 01/19/16 2:13:00 CDT, Stop date: 01/19/16 2:13:00 CDT Inactive 01/19/2016 [facility] Ondansetron 4 mg, Route: IVP, ONCE, Dosing Weight 100, kg, Priority: STAT, Start date: 01/19/16 2:13:00 CDT, Stop date: 01/19/16 2:13:00 CDT Inactive 01/19/2016 [facility] pantoprazole 80 mg, Route: IVP , ONCE, Dosing Weight 100, kg, For IV push reconstitute with 10 ml 0.9% sodium chloride and push over at least 3 minutes, Priority: STAT, Start date: 01/19/16 2:13:00 CDT, Stop date: 01/19/16 2:13:00 CDT Inactive 01/19/2016 [facility] Sodium Chloride 0.154 MEQ/ML Injectable Solution 1,000 mL, 2,000 ml/hr, Infuse Over: 30 minutes, Route: IV, ONCE, Priority: STAT, Dosing Weight 100 kg, Start date: 01/19/16 2:13:00 CDT, Duration: 1 doses or times, Stop date: 01/19/16 2:13:00 CDT Inactive 01/19/2016 [facility] Saline Flush 0.9% Notes: (Same as: BD Posiflush) Inactive 01/19/2016 [facility] Ketorolac Tromethamine 10 MG Oral Tablet 10 mg = 1 tab, PO, Q6H, X 5 day, # 20 tab, 0 Refill(s) Active 09/08/2014 [facility] Ketorolac 4 days MEDICA TION WASTE Product Size: 30 mg Product Wasted: _15__ mg Inactive 09/08/2014 [facility] Zofran 4 mg, Route: IVP, Drug form: INJ, ONCE, Dosing Weight 109.091, kg, Priority: STAT, Start date: 09/08/14 16:35:00, Stop date: 09/08/14 16:35:00 Inactive 09/08/2014 [facility] Morphine 4 mg, Route: IVP, Jose g form: INJ, ONCE, Dosing Weight 109.091, kg, Priority: STAT, Start date: 09/08/14 16:35:00, Stop date: 09/08/14 16:35:00 Inactive 09/08/2014 [facility] Saline Flush 0.9% Notes: (Same as: BD Posiflush) Inactive 09/08/2014 [facility] Allergies, Adverse Reactions, Alerts Substance Category Reaction Severity Reaction type Status Date Reported Comments Source lisinopril Assertion Drug allergy Active [facility] Immunizations Immunization Date Given Site Status Last Updated Comments Source pneumococcal 23-valent vaccine 06/19/2016 Right deltoid completed [facility] influenza virus vaccine, inactivated 06/19/2016 Left deltoid completed [facility] Results Order Name Results Value Reference Range Date Interpretation Comments Source SPECIAL CHEMISTRY Hgb A1C 11.7 <=5.6 % 12/06/2018 [facility] BLOOD BANK RESULTS ABO/Rh A POS 12/06/2018 [facility] BLOOD BANK RESULTS Antibody Scrn Negative (12/06/18 12:44 PM) 12/06/2018 [facility] ELECTROLYTES AGAP 10.6 10.0 - 20.0 12/06/2018 [facility] ELECTROLYTES B/C Ratio 15 6 - 25 12/06/2018 [facility] ELECTROLYTES Globulin 3.7 2.7 - 4.2 12/06/2018 [facility] ELECTROLYTES A/G Ratio 0.9 0.7 - 1.6 12/06/2018 [facility] ELECTROLYTES Glucose Lvl 291 70 - 99 12/06/2018 [facility] ELECTROLYTES BUN 19 7 - 22 12/06/2018 [facility] ELECTROLYTES Creatinine Lvl 1.2 9 0.50 - 1.40 12/06/2018 [facility] ELECTROLYTES Sodium Lvl 139 135 - 145 12/06/2018 [facility] ELECTROLYTES Potassium Lvl 4.6 3.5 - 5.1 12/06/2018 [facility] ELECTROLYTES Chloride Lvl 105 95 - 109 12/06/2018 [facility] ELECTROLYTES CO2 28 24 - 32 12/06/2018 [facility] ELECTROLYTES Calcium Lvl 9.0 8.5 - 10.5 12/06/2018 [facility] ELECTROLYTES Total Protein 7.1 6.4 - 8.4 12/06/2018 [facility] ELECTROLYTES Albumin Lvl 3.4 3.5 - 5.0 12/06/2018 [facility] ELECTROLYTES ALT 25 0 - 65 12/06/2018 [facility] ELECTROLYTES AST 11 0 - 37 12/06/2018 [facility] ELECTROLYTES Alk Phos 113 39 - 136 12/06/2018 [facility] ELECTROLYTES Bili Total 0.4 0.2 - 1.3 12/06/2018 [facility] ELECTROLYTES eGFR 49 12/06/2018 Result Comment: The eGFR is calculated using the [...] from the National Kidney Disease Education Program (NKDEP) which additionally recommends that when the eGFR is used in patients with extremes of body mass index for purposes of drug dosing, the eGFR should be multiplied by the estimated BMI. [facility] HEMATOLOGY WBC 4.4 3.7 - 10.4 12/06/2018 [facility] HEMATOLOGY RBC 3.74 4.20 - 5.40 12/06/2018 [facility] HEMATOLOGY Hgb 11.2 12.0 - 16.0 12/06/2018 [facility] HEMATOLOGY Hct 34.1 36.0 - 48.0 12/06/2018 [facility] MCV 91.2 80.0 - 98.0 12/06/2018 [facility] MCH 30.0 27.0 - 31.0 12/06/2018 [facility] MCHC 32.9 32.0 - 36.0 12/06/2018 [facility] HEMATOLOGY RDW 17.6 11.5 - 14.5 12/06/2018 [facility] Platelet 183 133 - 450 12/06/2018 [facility] HEMATOLOGY MPV 8.8 7.4 - 10.4 12/06/2018 [facility] HEMATOLOGY PT 11.8 12.0 - 14.7 12/06/2018 [facility] HEMATOLOGY INR 0.88 0.85 - 1.17 12/06/2018 [facility] HEMATOLOGY PTT 31.5 22.9 - 35.8 12/06/2018 [facility] HEMATOLOGY Segs 65.1 45.0 - 75.0 12/06/2018 [facility] Lymphocytes 27.4 20.0 - 40.0 12/06/2018 [facility] Monocytes 6.0 2.0 - 12.0 12/06/2018 [facility] HEMATOLOGY Eosinophils 1.0 0.0 - 4.0 12/06/2018 [facility] HEMATOLOGY Basophils 0.5 0.0 - 1.0 12/06/2018 [facility] Neutrophils # 2.9 1.5 - 8.1 12/06/2018 [facility] Lymphocytes # 1.2 1.0 - 5.5 12/06/2018 [facility] Monocytes # 0.3 0.0 - 0.8 12/06/2018 [facility] URINE AND STOOL UA Bili Negative *NA* (02/22/18 3:31 PM) Negative 02/22/2018 [facility] URINE AND STOOL UA Nitrite Negative (02/22/18 3:31 PM) Negative 02/22/2018 [facility] URINE AND STOOL UA Blood Negative (02/22/18 3:31 PM) Negative 02/22/2018 [facility] URINE AND STOOL UA Leuk Est Negative (02/22/18 3:31 PM) Negative 02/22/2018 [facility] URINE AND STOOL UA Urobilinogen <=1.0 mg/dL 0.1 - 1.0 02/22/2018 [facility] URINE AND STOOL UA Sq Epi Occasional /LPF Few /LPF 02/22/2018 [facility] URINE AND STOOL UA WBC 1 0 - 5 02/22/2018 [facility] URINE AND STOOL UA RBC 1 0 - 2 02/22/2018 [facility] URINE AND STOOL UA Color Ltyellow 02/22/2018 [facility] URINE AND STOOL UA Turbidity Clear (02/22/18 3:31 PM) Clear 02/22/2018 [facility] URINE AND STOOL UA Spec Grav 1.026 <=1.030 02/22/2018 [facility] URINE AND STOOL UA Glucose 500 mg/dL Negative mg/dL 02/22/2018 [facility] URINE AND STOOL UA pH 5.0 5.0 - 8.0 02/22/2018 [facility] URINE AND STOOL UA Ketones Negative *NA* (02/22/18 3:31 PM) Negative 02/22/2018 [facility] URINE AND STOOL UA Protein 100 mg/dL Negative mg/dL 02/22/2018 [facility] CARDIAC ENZYMES Troponin-I <0.02 0.00 - 0.40 02/22/2018 [facility] CARDIAC ENZYMES BNP 65 <=100 pg/mL 02/22/2018 [facility] CHEM PANEL Lipase Lvl 359 73 - 393 02/22/2018 [facility] CHEM PANEL Globulin 4.2 2.7 - 4.2 02/22/2018 [facility] CHEM PANEL B/C Ratio 20 6 - 25 02/22/2018 [facility] CHEM PANEL AGAP 17.4 10.0 - 20.0 02/22/2018 [facility] CHEM PANEL A/G Ratio 0.8 0.7 - 1.6 02/22/2018 [facility] CHEM PANEL eGFR 48 02/22/2018 Result Comment: The eGFR is calculated using the [...] from the National Kidney Disease Education Program (NKDEP) which additionally recommends that when the eGFR is used in patients with extremes of body mass index for purposes of drug dosing, the eGFR should be multiplied by the estimated BMI. [facility] CHEM PANEL Alk Phos 116 39 - 136 02/22/2018 [facility] CHEM PANEL Bili Total 0.5 0.2 - 1.3 02/22/2018 [facility] CHEM PANEL AST 25 0 - 37 02/22/2018 [facility] CHEM PANEL ALT 47 0 - 65 02/22/2018 [facility] CHEM PANEL Albumin Lvl 3.2 3.5 - 5.0 02/22/2018 [facility] CHEM PANEL Total Protein 7.4 6.4 - 8.4 02/22/2018 [facility] CHEM PANEL Calcium Lvl 9.0 8.5 - 10.5 02/22/2018 [facility] CHEM PANEL Chloride Lvl 101 95 - 109 02/22/2018 [facility] CHEM PANEL CO2 18 24 - 32 02/22/2018 [facility] CHEM PANEL Potassium Lvl 4.4 3.5 - 5.1 02/22/2018 [facility] CHEM PANEL Creatinine Lvl 1.32 0.50 - 1.40 02/22/2018 [facility] CHEM PANEL Sodium Lvl 132 135 - 145 02/22/2018 [facility] CHEM PANEL BUN 27 7 - 22 02/22/2018 [facility] CHEM PANEL Glucose Lvl 379 70 - 99 02/22/2018 [facility] CHEM PANEL VITAMIN B1 (THIAMINE) WHO LE BLOOD 107.0 66.5 - 200.0 02/22/2018 Result Comment:
This t est was developed and its performance characteristics
determined by [email or web address]. It has not been cleared or
approved by the Food and Drug Administration .
Performed At: [facility]
[address] [place] [phone]
Bryan Lunsford MD Ph:[phone] [facility] Basophils 0.3 0.0 - 1.0 02/22/2018 [facility] Neutrophils # 7.1 1.5 - 8.1 02/22/2018 [facility] HEMATOLOGY Lymphocytes # 1.4 1.0 - 5.5 02/22/2018 [facility] HEMATOLOGY Lymphocytes 15.0 20.0 - 40.0 02/22/2018 [facility] HEMATOLOGY Monocytes 5.9 2.0 - 12.0 02/22/2018 [facility] Monocytes # 0.5 0.0 - 0.8 02/22/2018 [facility] HEMATOLOGY Eosinophils 0.2 0.0 - 4.0 02/22/2018 [facility] RBC Morph Keisha l (02/22/18 2:21 PM) 02/22/2018 [facility] HEMATOLOGY Segs 78.6 45.0 - 75.0 02/22/2018 [facility] HEMATOLOGY Plt Morph See N ote 2 (02/22/18 2:21 PM) 02/22/2018 Result Comment: Due to occassional clumps, the actual count may be slightly higher. 02/22/2018 19:19 [facility] HEMATOLOGY Hct 38.7 36.0 - 48.0 02/22/2018 [facility] MCH 30.8 27.0 - 31.0 02/22/2018 [facility] HEMATOLOGY MCV 90.4 80.0 - 98.0 02/22/2018 [facility] MCHC 34.1 32.0 - 36.0 02/22/2018 [facility] RDW 16.8 11.5 - 14.5 02/22/2018 [facility] Platelet 149 133 - 450 02/22/2018 [facility] MPV 9.3 7.4 - 10.4 02/22/2018 [facility] WBC 9.0 3.7 - 10.4 02/22/2018 [facility] Hgb 13.2 12.0 - 16.0 02/22/2018 [facility] RBC 4.27 4.20 - 5.40 02/22/2018 [facility] VIRAL - SEROLOGY Influ B Negative (01/17/17 4:52 PM) Negative 01/17/2017 [facility] VIRAL - SEROLOGY Influ A Negative (01/17/17 4:52 PM) Negative 01/17/2017 [facility] BLOOD BANK RESULTS ABO/Rh A POS 01/17/2017 [facility] BLOOD BANK RESULTS Antibody Scrn Negative (01/17/17 4:21 PM) 01/17/2017 [facility] CHEM PANEL Lipase Lvl 144 73 - 393 01/17/2017 [facility] CHEM PANEL Amylase Lvl 110 25 - 115 01/17/2017 [facility] CHEM PANEL A/G Ratio 0.9 0.7 - 1.6 01/17/2017 [facility] CHEM PANEL Globulin 4.7 2.7 - 4.2 01/17/2017 [facility] CHEM PANEL AGAP 12.9 10.0 - 20.0 01/17/2017 [facility] CHEM PANEL B/C Ratio 13 6 - 25 01/17/2017 [facility] CHEM PANEL Total Protein 9.0 6.4 - 8.4 01/17/2017 [facility] CHEM PANEL Calcium Lvl 9.4 8.5 - 10.5 01/17/2017 [facility] CHEM PANEL CO2 24 24 - 32 01/17/2017 [facility] CHEM PANEL Chloride Lvl 105 95 - 109 01/17/2017 [facility] CHEM PANEL Potassium Lvl 3.9 3.5 - 5.1 01/17/2017 [facility] CHEM PANEL Bili Total 0.5 0.2 - 1.3 01/17/2017 [facility] CHEM PANEL AST 24 0 - 37 01/17/2017 [facility] CHEM PANEL Albumin Lvl 4.3 3.5 - 5.0 01/17/2017 [facility] CHEM PANEL Alk Phos 141 39 - 136 01/17/2017 [facility] CHEM PANEL ALT 20 0 - 65 01/17/2017 [facility] CHEM PANEL eGFR 54 01/17/2017 Result Comment: The eGFR is calculated using the [...] from the National Kidney Disease Education Program (NKDEP) which additionally recommends that when the eGFR is used in patients with extremes of body mass index for purposes of drug dosing, the eGFR should be multiplied by the estimated BMI. [facility] CHEM PANEL Glucose Lvl 64 70 - 99 01/17/2017 [facility] CHEM PANEL Creatinine Lvl 1.20 0.50 - 1.40 01/17/2017 [facility] CHEM PANEL BUN 16 7 - 22 01/17/2017 [facility] CHEM PANEL Sodium Lvl 138 135 - 145 01/17/2017 [facility] HEMATOLOGY Segs-Bands # 4.9 1.5 - 8.1 01/17/2017 [facility] HEMATOLOGY Basophils 0.5 0.0 - 1.0 01/17/2017 [facility] HEMATOLOGY Monocytes 5.2 2.0 - 12.0 01/17/2017 [facility] HEMATOLOGY Eosinophils 0.9 0.0 - 4.0 01/17/2017 [facility] HEMATOLOGY Lymphocytes 28.1 20.0 - 40.0 01/17/2017 [facility] HEMATOLOGY Segs 65.3 45.0 - 75.0 01/17/2017 [facility] HEMATOLOGY Lymphocytes # 2.1 1.0 - 5.5 01/17/2017 [facility] HEMATOLOGY Monocytes # 0.4 0.0 - 0.8 01/17/2017 [facility] HEMATOLOGY Eosinophils # 0.1 0.0 - 0.5 01/17/2017 [facility] HEMATOLOGY RBC Morph Keisha l (01/17/17 4:21 PM) 01/17/2017 [facility] HEMATOLOGY Plt Morph Keisha l (01/17/17 4:21 PM) 01/17/2017 [facility] MCH 27.1 27.0 - 31.0 01/17/2017 [facility] MCHC 32.6 32.0 - 36.0 01/17/2017 [facility] MPV 9.2 7.4 - 10.4 01/17/2017 [facility] MCV 83.2 80.0 - 98.0 01/17/2017 [facility] Hct 41.6 36.0 - 48.0 01/17/2017 [facility] Hgb 13.6 12.0 - 16.0 01/17/2017 [facility] HEMATOLOGY Platelet 169 133 - 450 01/17/2017 [facility] RDW 17.1 11.5 - 14.5 01/17/2017 [facility] RBC 5.00 4.20 - 5.40 01/17/2017 [facility] HEMATOLOGY WBC 7.6 3.7 - 10.4 01/17/2017 [facility] URINE AND STOOL UA Blood Negative (01/17/17 4:21 PM) Negative 01/17/2017 [facility] URINE AND STOOL UA Nitrite Negative (01/17/17 4:21 PM) Negative 01/17/2017 [facility] URINE AND STOOL UA Leuk Est Negative (01/17/17 4:21 PM) Negative 01/17/2017 [facility] URINE AND STOOL UA Sq Epi Occasional /LPF Few /LPF 01/17/2017 [facility] URINE AND STOOL UA RBC 2 0 - 2 01/17/2017 [facility] URINE AND STOOL UA Bacteria Occasional /HPF None Seen /HPF 01/17/[address] [facility] [address] URINE AND STOOL UA Color Ltyellow 01/17/2017 [facility] URINE AND STOOL UA WBC 2 0 - 5 01/17/2017 [facility] URINE AND STOOL UA Glucose Negative mg/dL Negative mg/dL 01/17/2017 [facility] URINE AND STOOL UA Ketones Negative mg/dL Negative mg/dL 01/17/2017 [facility] URINE AND STOOL UA Bili Negative *NA* (01/17/17 4:21 PM) Negative 01/17/2017 [facility] URINE AND STOOL UA Urobilinogen <=1.0 mg/dL 0.1 - 1.0 01/17/2017 [facility] URINE AND STOOL UA pH 7.0 5.0 - 8.0 01/17/2017 [facility] URINE AND STOOL UA Protein Negative mg/dL Negative mg/dL 01/17/2017 [facility] URINE AND STOOL UA Turbidity Clear (01/17/17 4:21 PM) Clear 01/17/2017 [facility] URINE AND STOOL UA Spec Grav 1.006 <=1.030 01/17/2017 [facility] URINE CHEM U Preg Negat adan (01/17/17 4:21 PM) Negative 01/17/2017 [facility] CHEM PANEL Creatinine Lvl 2.00 0.50 - 1.40 09/10/2016 [facility] CHEM PANEL BUN 32 7 - 22 09/10/2016 [facility] CHEM PANEL Sodium Lvl 139 135 - 145 09/10/2016 [facility] CHEM PANEL Chloride Lvl 107 95 - 109 09/10/2016 [facility] CHEM PANEL Potassium Lvl 4.1 3.5 - 5.1 09/10/2016 [facility] CHEM PANEL Glucose Lvl 151 70 - 99 09/10/2016 [facility] CHEM PANEL AGAP 14.1 10.0 - 20.0 09/10/2016 [facility] CHEM PANEL CO2 22 24 - 32 09/10/2016 [facility] CHEM PANEL Calcium Lvl 8.7 8.5 - 10.5 09/10/2016 [facility] CHEM PANEL eGFR 29 09/10/2016 Result Comment: The eGFR is calculated using the [...] from the National Kidney Disease Education Program (NKDEP) which additionally recommends that when the eGFR is used in patients with extremes of body mass index for purposes of drug dosing, the eGFR should be multiplied by the estimated BMI. [facility] HEMATOLOGY MPV 9.9 7.4 - 10.4 09/10/2016 [facility] RBC 4.28 4.20 - 5.40 09/10/2016 [facility] WBC 6.4 3.7 - 10.4 09/10/2016 [facility] Hgb 8.8 12.0 - 16.0 09/10/2016 [facility] HEMATOLOGY Hct 29.1 36.0 - 48.0 09/10/2016 [facility] MCV 67.9 80.0 - 98.0 09/10/2016 [facility] MCH 20.6 27.0 - 31.0 09/10/2016 [facility] Platelet 182 133 - 450 09/10/2016 [facility] MCHC 30.3 32.0 - 36.0 09/10/2016 [facility] RDW 18.6 11.5 - 14.5 09/10/2016 [facility] URINE AND STOOL UA Bili Negative *NA* (09/10/16 3:06 AM) Negative 09/10/2016 [facility] URINE AND STOOL UA WBC 5 0 - 5 09/10/2016 [facility] URINE AND STOOL UA Leuk Est Trace *ABN* (09/10/16 3:06 AM) Negative 09/10/2016 [facility] URINE AND STOOL UA Sq Epi Few /LPF Few /LPF 09/10/2016 [facility] URINE AND STOOL UA Blood Negative (09/10/16 3:06 AM) Negative 09/10/2016 [facility] URINE AND STOOL UA Nitrite Negative (09/10/16 3:06 AM) Negative 09/10/2016 [facility] URINE AND STOOL UA RBC <1 0 - 2 09/10/2016 [facility] URINE AND STOOL UA Bacteria Occasional /HPF None Seen /HPF 09/10/2016 [facility] URINE AND STOOL UA Urobilinogen <=1.0 mg/dL 0.1 - 1.0 09/10/2016 [facility] URINE AND STOOL UA Color Ltyellow 09/10/2016 [facility] URINE AND STOOL UA Protein Negative mg/dL Negative mg/dL 09/10/2016 [facility] URINE AND STOOL UA Spec Grav 1.009 <=1.030 09/10/2016 [facility] URINE AND STOOL UA pH 5.0 5.0 - 8.0 09/10/2016 [facility] URINE AND STOOL UA Glucose Negative mg/dL Negative mg/dL 09/10/[address] [facility] [address] URINE AND STOOL UA Ketones Negative mg/dL Negative mg/dL 09/10/2016 [facility] [address] URINE AND STOOL UA Turbidity Clear (09/10/16 3:06 AM) Clear 09/10/2016 [facility] URINE CHEM U Eos None Seen (09/10/16 3:06 AM) None Seen 09/10/2016 [facility] URINE CHEM U Urea 472 09/10/2016 [facility] URINE CHEM U Sodium 48 09/10/2016 [facility] URINE CHEM U Microalb 21.5 09/10/2016 [facility] URINE CHEM U Creatinine 120.00 09/10/2016 [facility] URINE CHEM U Alb/Crea 17.9 <=30.0 mcg/mg creat 09/10/2016 [facility] CHEM PANEL eGFR 25 09/09/2016 Result Comment: The eGFR is calculated using the [...] from the National Kidney Disease Education Program (NKDEP) which additionally recommends that when the eGFR is used in patients with extremes of body mass index for purposes of drug dosing, the eGFR should be multiplied by the estimated BMI. [facility] CHEM PANEL CO2 22 24 - 32 09/09/2016 [facility] CHEM PANEL Creatinine Lvl 2.30 0.50 - 1.40 09/09/2016 [facility] CHEM PANEL Potassium Lvl 5.1 3.5 - 5.1 09/09/2016 [facility] CHEM PANEL Chloride Lvl 106 95 - 109 09/09/2016 [facility] CHEM PANEL AGAP 14.1 10.0 - 20.0 09/09/2016 [facility] CHEM PANEL Calcium Lvl 8.2 8.5 - 10.5 09/09/2016 [facility] CHEM PANEL BUN 29 7 - 22 09/09/2016 [facility] CHEM PANEL Sodium Lvl 137 135 - 145 09/09/2016 [facility] CHEM PANEL Glucose Lvl 354 70 - 99 09/09/2016 [facility] HEMATOLOGY MPV 9.6 7.4 - 10.4 09/09/2016 [facility] HEMATOLOGY Platelet 187 133 - 450 09/09/2016 [facility] MCHC 30.5 32.0 - 36.0 09/09/2016 [facility] HEMATOLOGY RDW 18.5 11.5 - 14.5 09/09/2016 [facility] Hgb 7.4 12.0 - 16.0 09/09/2016 [facility] RBC 3.59 4.20 - 5.40 09/09/2016 [facility] MCH 20.7 27.0 - 31.0 09/09/2016 [facility] Hct 24.4 36.0 - 48.0 09/09/2016 [facility] MCV 67.9 80.0 - 98.0 09/09/2016 [facility] WBC 6.8 3.7 - 10.4 09/09/2016 [facility] ELECTROLYTES AGAP 11.5 10.0 - 20.0 09/09/2016 [facility] ELECTROLYTES Glucose Lvl 175 70 - 99 09/09/2016 [facility] ELECTROLYTES Sodium Lvl 140 135 - 145 09/09/2016 [facility] ELECTROLYTES Creatinine Lvl 1.9 0 0.50 - 1.40 09/09/2016 [facility] ELECTROLYTES BUN 25 7 - 22 09/09/2016 [facility] ELECTROLYTES Chloride Lvl 108 95 - 109 09/09/2016 [facility] ELECTROLYTES Potassium Lvl 4.5 3.5 - 5.1 09/09/2016 [facility] ELECTROLYTES eGFR 31 09/09/2016 Result Comment: The eGFR is calculated using the [...] from the National Kidney Disease Education Program (NKDEP) which additionally recommends that when the eGFR is used in patients with extremes of body mass index for purposes of drug dosing, the eGFR should be multiplied by the estimated BMI. [facility] ELECTROLYTES CO2 25 24 - 32 09/09/2016 [facility] ELECTROLYTES Calcium Lvl 8.7 8.5 - 10.5 09/09/2016 [facility] ELECTROLYTES Sodium Lvl 140 135 - 145 09/09/2016 [facility] ELECTROLYTES Creatinine Lvl 1.9 0 0.50 - 1.40 09/09/2016 [facility] ELECTROLYTES eGFR 31 09/09/2016 Result Comment: The eGFR is calculated using the [...] from the National Kidney Disease Education Program (NKDEP) which additionally recommends that when the eGFR is used in patients with extremes of body mass index for purposes of drug dosing, the eGFR should be multiplied by the estimated BMI. [facility] ELECTROLYTES AGAP 13.5 10.0 - 20.0 09/09/2016 [facility] ELECTROLYTES CO2 25 24 - 32 09/09/2016 [facility] ELECTROLYTES Chloride Lvl 106 95 - 109 09/09/2016 [facility] ELECTROLYTES Calcium Lvl 8.5 8.5 - 10.5 09/09/2016 [facility] ELECTROLYTES Potassium Lvl 4.5 3.5 - 5.1 09/09/2016 [facility] ELECTROLYTES Glucose Lvl 173 70 - 99 09/09/2016 [facility] ELECTROLYTES BUN 25 7 - 22 09/09/2016 [facility] HEMATOLOGY Microcyte 3+ *NA* (09/09/16 3:11 AM) None Seen 09/09/2016 [facility] HEMATOLOGY Monocytes # 0.5 0.0 - 0.8 09/09/2016 [facility] HEMATOLOGY Lymphocytes # 1.0 1.0 - 5.5 09/09/2016 [facility] HEMATOLOGY Segs-Bands # 5.6 1.5 - 8.1 09/09/2016 [facility] HEMATOLOGY Basophils 0.4 0.0 - 1.0 09/09/2016 [facility] HEMATOLOGY Eosinophils 0.2 0.0 - 4.0 09/09/2016 [facility] HEMATOLOGY Lymphocytes 14.5 20.0 - 40.0 09/09/2016 [facility] HEMATOLOGY Monocytes 7.1 2.0 - 12.0 09/09/2016 [facility] HEMATOLOGY Segs 77.8 45.0 - 75.0 09/09/2016 [facility] Platelet 187 133 - 450 09/09/2016 [facility] MPV 9.4 7.4 - 10.4 09/09/2016 [facility] HEMATOLOGY MCV 67.5 80.0 - 98.0 09/09/2016 [facility] RDW 18.2 11.5 - 14.5 09/09/2016 [facility] MCH 20.7 27.0 - 31.0 09/09/2016 [facility] MCHC 30.6 32.0 - 36.0 09/09/2016 [facility] HEMATOLOGY RBC 3.95 4.20 - 5.40 09/09/2016 [facility] Hct 26.6 36.0 - 48.0 09/09/2016 [facility] Hgb 8.2 12.0 - 16.0 09/09/2016 [facility] WBC 7.2 3.7 - 10.4 09/09/2016 [facility] CHEM PANEL Globulin 4.2 2.7 - 4.2 09/08/2016 [facility] CHEM PANEL A/G Ratio 1.0 0.7 - 1.6 09/08/2016 [facility] CHEM PANEL B/C Ratio 16 6 - 25 09/08/2016 [facility] CHEM PANEL Alk Phos 123 39 - 136 09/08/2016 [facility] CHEM PANEL AST 9 0 - 37 09/08/2016 [facility] CHEM PANEL Bili Total 0.5 0.2 - 1.3 09/08/2016 [facility] CHEM PANEL Albumin Lvl 4.3 3.5 - 5.0 09/08/2016 [facility] CHEM PANEL Total Protein 8.5 6.4 - 8.4 09/08/2016 [facility] CHEM PANEL ALT 13 0 - 65 09/08/2016 [facility] CHEM PANEL Lipase Lvl 96 73 - 393 09/08/2016 [facility] ENDOCRINOLOGY S Preg Ne gative *NA* (09/08/16 1:07 AM) Negative 09/08/2016 [facility] HEMATOLOGY Microcyte 3+ *NA* (09/08/16 1:07 AM) None Seen 09/08/2016 [facility] HEMATOLOGY Monocytes # 0.1 0.0 - 0.8 09/08/2016 [facility] HEMATOLOGY Lymphocytes # 0.5 1.0 - 5.5 09/08/2016 [facility] HEMATOLOGY Monocytes 1.5 2.0 - 12.0 09/08/2016 [facility] HEMATOLOGY Lymphocytes 6.2 20.0 - 40.0 09/08/2016 [facility] HEMATOLOGY Segs-Bands # 7.4 1.5 - 8.1 09/08/2016 [facility] HEMATOLOGY Basophils 0.2 0.0 - 1.0 09/08/2016 [facility] HEMATOLOGY Segs 92.1 45.0 - 75.0 09/08/2016 [facility] URINE AND STOOL UA Leuk Est Negative (09/08/16 1:07 AM) Negative 09/08/2016 [facility] URINE AND STOOL UA Nitrite Negative (09/08/16 1:07 AM) Negative 09/08/2016 [facility] URINE AND STOOL UA Blood Small *ABN* (09/08/16 1:07 AM) Negative 09/08/2016 [facility] URINE AND STOOL UA Bili Negative *NA* (09/08/16 1:07 AM) Negative 09/08/2016 [facility] URINE AND STOOL UA Sq Epi Occasional /LPF Few /LPF 09/08/2016 [facility] URINE AND STOOL UA Glucose 500 mg/dL Negative mg/dL 09/08/2016 [facility] URINE AND STOOL UA Protein 30 mg/dL Negative mg/dL 09/08/2016 [facility] URINE AND STOOL UA pH 5.0 5.0 - 8.0 09/08/2016 [facility] URINE AND STOOL UA Ketones 20 mg/dL Negative mg/dL 09/08/2016 [facility] URINE AND STOOL UA Spec Grav 1.012 <=1.030 09/08/2016 [facility] URINE AND STOOL UA Turbidity Clear (09/08/16 1:07 AM) Clear 09/08/2016 [facility] URINE AND STOOL UA Urobilinogen <=1.0 mg/dL 0.1 - 1.0 09/08/2016 [facility] URINE AND STOOL UA Hyal Cast 1 0 - 2 09/08/2016 [facility] URINE AND STOOL UA RBC 3 0 - 2 09/08/2016 [facility] URINE AND STOOL UA WBC 2 0 - 5 09/08/2016 [facility] URINE AND STOOL UA Color Ltyellow 09/08/2016 [facility] CHEM PANEL eGFR 70 08/20/2016 Result Comment: The eGFR is calculated using the [...] from the National Kidney Disease Education Program (NKDEP) which additionally recommends that when the eGFR is used in patients with extremes of body mass index for purposes of drug dosing, the eGFR should be multiplied by the estimated BMI. [facility] CHEM PANEL ALT 179 0 - 65 08/20/2016 [facility] CHEM PANEL Albumin Lvl 3.4 3.5 - 5.0 08/20/2016 [facility] CHEM PANEL Total Protein 6.6 6.4 - 8.4 08/20/2016 [facility] CHEM PANEL Calcium Lvl 8.5 8.5 - 10.5 08/20/2016 [facility] CHEM PANEL CO2 22 24 - 32 08/20/2016 [facility] CHEM PANEL Chloride Lvl 108 95 - 109 08/20/2016 [facility] CHEM PANEL Alk Phos 184 39 - 136 08/20/2016 [facility] CHEM PANEL AST 81 0 - 37 08/20/2016 [facility] CHEM PANEL Bili Total 0.6 0.2 - 1.3 08/20/2016 [facility] CHEM PANEL Sodium Lvl 141 135 - 145 08/20/2016 [facility] CHEM PANEL BUN 10 7 - 22 08/20/2016 [facility] CHEM PANEL Glucose Lvl 153 70 - 99 08/20/2016 [facility] CHEM PANEL Potassium Lvl 4.2 3.5 - 5.1 08/20/2016 [facility] CHEM PANEL Creatinine Lvl 0.97 0.50 - 1.40 08/20/2016 [facility] CHEM PANEL A/G Ratio 1.1 0.7 - 1.6 08/20/2016 [facility] CHEM PANEL Globulin 3.2 2.7 - 4.2 08/20/2016 [facility] CHEM PANEL B/C Ratio 10 6 - 25 08/20/2016 [facility] CHEM PANEL AGAP 15.2 10.0 - 20.0 08/20/2016 [facility] HEMATOLOGY MCHC 30.3 32.0 - 36.0 08/20/2016 [facility] HEMATOLOGY MCH 20.3 27.0 - 31.0 08/20/2016 [facility] HEMATOLOGY MCV 67.2 80.0 - 98.0 08/20/2016 [facility] HEMATOLOGY Hct 27.7 36.0 - 48.0 08/20/2016 [facility] HEMATOLOGY Hgb 8.4 12.0 - 16.0 08/20/2016 [facility] HEMATOLOGY RBC 4.13 4.20 - 5.40 08/20/2016 [facility] HEMATOLOGY MPV 9.5 7.4 - 10.4 08/20/2016 [facility] HEMATOLOGY Platelet 208 133 - 450 08/20/2016 [facility] HEMATOLOGY RDW 17.7 11.5 - 14.5 08/20/2016 [facility] HEMATOLOGY WBC 6.5 3.7 - 10.4 08/20/2016 [facility] HEMATOLOGY INR 1.05 0.85 - 1.17 08/20/2016 [facility] HEMATOLOGY PTT 28.8 22.9 - 35.8 08/20/2016 [facility] HEMATOLOGY PT 13.9 12.0 - 14.7 08/20/2016 [facility] HEMATOLOGY Hct 27.7 36.0 - 48.0 08/20/2016 [facility] HEMATOLOGY Hgb 8.4 12.0 - 16.0 08/20/2016 [facility] HEMATOLOGY WBC 6.5 3.7 - 10.4 08/20/2016 [facility] HEMATOLOGY RBC 4.13 4.20 - 5.40 08/20/2016 [facility] HEMATOLOGY Platelet 208 133 - 450 08/20/2016 [facility] HEMATOLOGY MPV 9.5 7.4 - 10.4 08/20/2016 [facility] HEMATOLOGY MCHC 30.3 32.0 - 36.0 08/20/2016 [facility] HEMATOLOGY MCV 67.2 80.0 - 98.0 08/20/2016 [facility] HEMATOLOGY RDW 17.7 11.5 - 14.5 08/20/2016 [facility] HEMATOLOGY MCH 20.3 27.0 - 31.0 08/20/2016 [facility] HEMATOLOGY Segs-Bands # 4.4 1.5 - 8.1 08/20/2016 [facility] HEMATOLOGY Basophils 0.6 0.0 - 1.0 08/20/2016 [facility] HEMATOLOGY Eosinophils 0.7 0.0 - 4.0 08/20/2016 [facility] HEMATOLOGY Monocytes 8.1 2.0 - 12.0 08/20/2016 [facility] HEMATOLOGY Lymphocytes 23.2 20.0 - 40.0 08/20/2016 [facility] HEMATOLOGY Microcyte 3+ *NA* (08/20/16 4:47 AM) None Seen 08/20/2016 [facility] HEMATOLOGY Monocytes # 0.5 0.0 - 0.8 08/20/2016 [facility] HEMATOLOGY Lymphocytes # 1.5 1.0 - 5.5 08/20/2016 [facility] HEMATOLOGY Segs 67.4 45.0 - 75.0 08/20/2016 [facility] ANEMIA STUDY Vitamin B12 Lvl 259 254 - 1320 08/19/2016 [facility] ANEMIA STUDY Ferritin Lvl 6 5 - 204 08/19/2016 [facility] ANEMIA STUDY Folate Lvl 11.3 >=3.0 ng/mL 08/19/2016 [facility] ANEMIA STUDY UIBC 446 110 - 370 08/19/2016 [facility] ANEMIA STUDY % [place] 4 12 - 57 08/19/2016 [facility] ANEMIA STUDY TIBC 463 228 - 428 08/19/2016 [facility] ANEMIA STUDY Iron 17 30 - 160 08/19/2016 [facility] CHEM PANEL VITAMIN B1 (THIAMINE) WHO LE BLOOD 79.6 66.5 - 200.0 08/19/2016 Result Comment: Performed At : [facility]
[id number] [place], [place] [id number]
Carlin Feliz MD Ph:[phone] [facility] ANEMIA STUDY UIBC 378 110 - 370 08/19/2016 [facility] ANEMIA STUDY TIBC 398 228 - 428 08/19/2016 [facility] ANEMIA STUDY % [place] 5 12 - 57 08/19/2016 [facility] ANEMIA STUDY [place] 20 30 - 160 08/19/2016 [facility] [facility] CHEM PANEL eGFR 68 08/19/2016 Result Comment: The eGFR is calculated using the [...] from the National Kidney Disease Education Program (NKDEP) which additionally recommends that when the eGFR is used in patients with extremes of body mass index for purposes of drug dosing, the eGFR should be multiplied by the estimated BMI. [facility] CHEM PANEL Bili Total 0.9 0.2 - 1.3 08/19/2016 [facility] CHEM PANEL AST 325 0 - 37 08/19/2016 [facility] CHEM PANEL Alk Phos 188 39 - 136 08/19/2016 [facility] CHEM PANEL AGAP 12.0 10.0 - 20.0 08/19/2016 [facility] CHEM PANEL Calcium Lvl 8.6 8.5 - 10.5 08/19/2016 [facility] CHEM PANEL B/C Ratio 13 6 - 25 08/19/2016 [facility] CHEM PANEL Potassium Lvl 4.0 3.5 - 5.1 08/19/2016 [facility] CHEM PANEL Glucose Lvl 137 70 - 99 08/19/2016 [facility] CHEM PANEL BUN 13 7 - 22 08/19/2016 [facility] CHEM PANEL CO2 23 24 - 32 08/19/2016 [facility] CHEM PANEL Chloride Lvl 108 95 - 109 08/19/2016 [facility] CHEM PANEL Creatinine Lvl 0.99 0.50 - 1.40 08/19/2016 [facility] CHEM PANEL Sodium Lvl 139 135 - 145 08/19/2016 [facility] CHEM PANEL Globulin 3.2 2.7 - 4.2 08/19/2016 [facility] CHEM PANEL Total Protein 6.6 6.4 - 8.4 08/19/2016 [facility] CHEM PANEL Albumin Lvl 3.4 3.5 - 5.0 08/19/2016 [facility] CHEM PANEL ALT 280 0 - 65 08/19/2016 [facility] CHEM PANEL A/G Ratio 1.1 0.7 - 1.6 08/19/2016 [facility] HEMATOLOGY Microcyte 3+ *NA* (08/19/16 5:41 AM) None Seen 08/19/2016 [facility] HEMATOLOGY Basophils # 0.1 0.0 - 0.2 08/19/2016 [facility] HEMATOLOGY Eosinophils 0.6 0.0 - 4.0 08/19/2016 [facility] HEMATOLOGY Monocytes 6.8 2.0 - 12.0 08/19/2016 [facility] HEMATOLOGY Lymphocytes # 1.6 1.0 - 5.5 08/19/2016 [facility] HEMATOLOGY Monocytes # 0.4 0.0 - 0.8 08/19/2016 [facility] HEMATOLOGY Segs-Bands # 3.5 1.5 - 8.1 08/19/2016 [facility] HEMATOLOGY Basophils 0.9 0.0 - 1.0 08/19/2016 [facility] HEMATOLOGY Lymphocytes 28.2 20.0 - 40.0 08/19/2016 [facility] HEMATOLOGY Segs 63.5 45.0 - 75.0 08/19/2016 [facility] HEMATOLOGY Hgb 7.9 12.0 - 16.0 08/19/2016 [facility] MCH 20.8 27.0 - 31.0 08/19/2016 [facility] HEMATOLOGY MCV 67.5 80.0 - 98.0 08/19/2016 [facility] HEMATOLOGY MCHC 30.8 32.0 - 36.0 08/19/2016 [facility] HEMATOLOGY Hct 25.8 36.0 - 48.0 08/19/2016 [facility] HEMATOLOGY MPV 9.0 7.4 - 10.4 08/19/2016 [facility] HEMATOLOGY Platelet 216 133 - 450 08/19/2016 [facility] HEMATOLOGY RDW 18.2 11.5 - 14.5 08/19/2016 [facility] HEMATOLOGY RBC 3.82 4.20 - 5.40 08/19/2016 [facility] HEMATOLOGY WBC 5.6 3.7 - 10.4 08/19/2016 [facility] HEMATOLOGY PTT 28.3 22.9 - 35.8 08/19/2016 [facility] HEMATOLOGY PT 14.8 12.0 - 14.7 08/19/2016 [facility] HEMATOLOGY INR 1.14 0.85 - 1.17 08/19/2016 [facility] IMMUNOLOGY Hep A IgM Negat adan *NA* (08/19/16 5:41 AM) Negative 08/19/2016 [facility] IMMUNOLOGY Hep B Core IgM Negat adan *NA* (08/19/16 5:41 AM) Negative 08/19/2016 [facility] IMMUNOLOGY Hep C Ab Negat adan *NA* (08/19/16 5:41 AM) 08/19/2016 [facility] IMMUNOLOGY Hep Bs Ag Negat adan *NA* (08/19/16 5:41 AM) Negative 08/19/2016 [facility] URINE AND STOOL UA WBC 1 0 - 5 08/18/2016 [facility] URINE AND STOOL UA Urobilinogen 4.0 0.1 - 1.0 08/18/2016 [facility] URINE AND STOOL UA Leuk Est Negative (08/18/16 8:45 AM) Negative 08/18/2016 [facility] URINE AND STOOL UA RBC <1 0 - 2 08/18/2016 [facility] URINE AND STOOL UA Sq Epi Occasional /LPF Few /LPF 08/18/2016 [facility] URINE AND STOOL UA Blood Negative (08/18/16 8:45 AM) Negative 08/18/2016 [facility] URINE AND STOOL UA Nitrite Negative (08/18/16 8:45 AM) Negative 08/18/2016 [facility] URINE AND STOOL UA Bili Negative *NA* (08/18/16 8:45 AM) Negative 08/18/2016 [facility] URINE AND STOOL UA Ketones Negative mg/dL Negative mg/dL 08/18/[address] [facility] [address] URINE AND STOOL UA Turbidity Clear (08/18/16 8:45 AM) Clear 08/18/2016 [facility] URINE AND STOOL UA Spec Grav 1.014 <=1.030 08/18/2016 [facility] URINE AND STOOL UA Protein Negative mg/dL Negative mg/dL 08/18/2016 [facility] URINE AND STOOL UA pH 5.0 5.0 - 8.0 08/18/2016 [facility] URINE AND STOOL UA Glucose Negative mg/dL Negative mg/dL 08/18/2016 [facility] URINE AND STOOL UA Color Yellow *NA* (08/18/16 8:45 AM) Yellow 08/18/2016 [facility] CHEM PANEL Magnesium Lvl 1.3 1.8 - 2.4 08/18/2016 [facility] CHEM PANEL ALT 161 0 - 65 08/18/2016 [facility] CHEM PANEL Total Protein 6.7 6.4 - 8.4 08/18/2016 [facility] CHEM PANEL A/G Ratio 1.0 0.7 - 1.6 08/18/2016 [facility] CHEM PANEL B/C Ratio 14 6 - 25 08/18/2016 [facility] CHEM PANEL Globulin 3.3 2.7 - 4.2 08/18/2016 [facility] CHEM PANEL Albumin Lvl 3.4 3.5 - 5.0 08/18/2016 [facility] CHEM PANEL eGFR 49 08/18/2016 Result Comment: The eGFR is calculated using the [...] from the National Kidney Disease Education Program (NKDEP) which additionally recommends that when the eGFR is used in patients with extremes of body mass index for purposes of drug dosing, the eGFR should be multiplied by the estimated BMI. [facility] CHEM PANEL Alk Phos 159 39 - 136 08/18/2016 [facility] CHEM PANEL AST 490 0 - 37 08/18/2016 [facility] CHEM PANEL Bili Total 0.8 0.2 - 1.3 08/18/2016 [facility] CHEM PANEL Calcium Lvl 8.3 8.5 - 10.5 08/18/2016 [facility] CHEM PANEL Glucose Lvl 197 70 - 99 08/18/2016 [facility] CHEM PANEL Creatinine Lvl 1.30 0.50 - 1.40 08/18/2016 [facility] CHEM PANEL BUN 18 7 - 22 08/18/2016 [facility] CHEM PANEL Sodium Lvl 140 135 - 145 08/18/2016 [facility] CHEM PANEL Potassium Lvl 4.1 3.5 - 5.1 08/18/2016 [facility] CHEM PANEL Chloride Lvl 110 95 - 109 08/18/2016 [facility] CHEM PANEL CO2 20 24 - 32 08/18/2016 [facility] CHEM PANEL AGAP 14.1 10.0 - 20.0 08/18/2016 [facility] HEMATOLOGY Eosinophils 0.1 0.0 - 4.0 08/18/2016 [facility] HEMATOLOGY Segs-Bands # 6.1 1.5 - 8.1 08/18/2016 [facility] HEMATOLOGY Lymphocytes # 1.2 1.0 - 5.5 08/18/2016 [facility] HEMATOLOGY Monocytes # 0.6 0.0 - 0.8 08/18/2016 [facility] HEMATOLOGY Basophils 0.4 0.0 - 1.0 08/18/2016 [facility] HEMATOLOGY Segs 77.4 45.0 - 75.0 08/18/2016 [facility] Lymphocytes 14.8 20.0 - 40.0 08/18/2016 [facility] Monocytes 7.3 2.0 - 12.0 08/18/2016 [facility] HEMATOLOGY Microcyte 3+ *NA* (08/18/16 4:34 AM) None Seen 08/18/2016 [facility] CHEM PANEL Lipase Lvl 123 73 - 393 08/18/2016 [facility] RBC Morph See N ote 1 (08/17/16 7:21 PM) 08/18/2016 Result Comment: microcytosis [facility] Plt Morph Keisha l (08/17/16 7:21 PM) 08/18/2016 [facility] Basophils # 0.1 0.0 - 0.2 08/18/2016 [facility] URINE AND STOOL UA Glucose 50 mg/dL Negative mg/dL 08/18/2016 [facility] URINE AND STOOL UA Ketones Trace mg/dL Negative mg/dL 08/18/2016 [facility] URINE AND STOOL UA Hyal Cast 30 0 - 2 08/18/2016 [facility] URINE AND STOOL UA Mucus Few /LPF None Seen /LPF 08/18/2016 [facility] URINE AND STOOL UA WBC 2 0 - 5 08/18/2016 [facility] URINE AND STOOL UA RBC 1 0 - 2 08/18/2016 [facility] URINE AND STOOL UA Sq Epi Occasional /LPF Few /LPF 08/18/2016 [facility] URINE AND STOOL UA Urobilinogen 2.0 0.1 - 1.0 08/18/2016 [facility] URINE AND STOOL UA Blood Negative (08/17/16 7:21 PM) Negative 08/18/2016 [facility] URINE AND STOOL UA pH 5.0 5.0 - 8.0 08/18/2016 [facility] URINE AND STOOL UA Spec Grav 1.026 <=1.030 08/18/2016 [facility] URINE AND STOOL UA Bili Negative *NA* (08/17/16 7:21 PM) Negative 08/18/2016 [facility] URINE AND STOOL UA Leuk Est Negative (08/17/16 7:21 PM) Negative 08/18/2016 [facility] URINE AND STOOL UA Nitrite Negative (08/17/16 7:21 PM) Negative 08/18/2016 [facility] URINE AND STOOL UA Protein 100 mg/dL Negative mg/dL 08/18/2016 [facility] URINE AND STOOL UA Turbidity Slight *ABN* (08/17/16 7:21 PM) Clear 08/18/2016 [facility] URINE AND STOOL UA Color Yellow *NA* (08/17/16 7:21 PM) Yellow 08/18/2016 [facility] URINE CHEM U Preg Negat adan (08/17/16 7:21 PM) Negative 08/18/2016 [facility] HEMATOLOGY Monocytes # 0.5 0.0 - 0.8 06/19/2016 [facility] HEMATOLOGY Basophils # 0.1 0.0 - 0.2 06/19/2016 [facility] Microcyte 3+ *NA* (06/19/16 7:45 AM) None Seen 06/19/2016 [facility] Basophils 0.9 0.0 - 1.0 06/19/2016 [facility] HEMATOLOGY Segs-Bands # 5.0 1.5 - 8.1 06/19/2016 [facility] Lymphocytes # 1.7 1.0 - 5.5 06/19/2016 [facility] Monocytes 7.0 2.0 - 12.0 06/19/2016 [facility] HEMATOLOGY Eosinophils 0.6 0.0 - 4.0 06/19/2016 [facility] Lymphocytes 22.8 20.0 - 40.0 06/19/2016 [facility] Segs 68.7 45.0 - 75.0 06/19/2016 [facility] WBC 7.3 3.7 - 10.4 06/19/2016 [facility] RBC 4.19 4.20 - 5.40 06/19/2016 [facility] Hgb 8.4 12.0 - 16.0 06/19/2016 [facility] MCH 20.1 27.0 - 31.0 06/19/2016 [facility] MCHC 30.7 32.0 - 36.0 06/19/2016 [facility] RDW 20.1 11.5 - 14.5 06/19/2016 [facility] Hct 27.4 36.0 - 48.0 06/19/2016 [facility] MCV 65.3 80.0 - 98.0 06/19/2016 [facility] HEMATOLOGY MPV 9.1 7.4 - 10.4 06/19/2016 [facility] HEMATOLOGY Platelet 202 133 - 450 06/19/2016 [facility] CHEM PANEL Ammonia 15.0 <=45.0 uMol/L 06/19/2016 [facility] TOXICOLOGY Salicylate Lvl <1.7 0.0 - 30.0 06/19/2016 [facility] TOXICOLOGY Ethanol Lvl <3 06/19/2016 [facility] TOXICOLOGY Etoh (%) <0.003 06/19/2016 [facility] TOXICOLOGY Acetaminoph Lvl <2 (06/19/16 12:50 AM) 10 - 20 06/19/2016 [facility] URINE AND STOOL UA Color Ltyellow 06/19/2016 [facility] URINE AND STOOL UA Ketones Negative mg/dL Negative mg/dL 06/19/2016 [facility] URINE AND STOOL UA Urobilinogen 2.0 0.1 - 1.0 06/19/2016 [facility] URINE AND STOOL UA Bili Negative *NA* (06/19/16 12:50 AM) Negative 06/19/2016 [facility] URINE AND STOOL UA Blood Negative (06/19/16 12:50 AM) Negative 06/19/2016 [facility] URINE AND STOOL UA WBC 1 0 - 5 06/19/2016 [facility] URINE AND STOOL UA RBC <1 0 - 2 06/19/2016 [facility] URINE AND STOOL UA Bacteria Occasional /HPF None Seen /HPF 06/19/2016 [facility] URINE AND STOOL UA Nitrite Negative (06/19/16 12:50 AM) Negative 06/19/2016 [facility] URINE AND STOOL UA Leuk Est Negative (06/19/16 12:50 AM) Negative 06/19/2016 [facility] URINE AND STOOL UA Sq Epi Few /LPF Few /LPF 06/19/2016 [facility] URINE AND STOOL UA Glucose Negative mg/dL Negative mg/dL 06/19/2016 [facility] [address] URINE AND STOOL UA pH 5.0 5.0 - 8.0 06/19/2016 [facility] URINE AND STOOL UA Protein Negative mg/dL Negative mg/dL 06/19/2016 [facility] URINE AND STOOL UA Turbidity Clear (06/19/16 12:50 AM) Clear 06/19/2016 [facility] URINE AND STOOL UA Spec Grav 1.013 <=1.030 06/19/2016 [facility] CARDIAC ENZYMES CK MB 1.4 0.5 - 3.6 06/19/2016 [facility] CARDIAC ENZYMES Troponin-I <0.02 0.00 - 0.40 06/19/2016 [facility] CARDIAC ENZYMES Total CK 85 12 - 191 06/19/2016 [facility] CARDIAC ENZYMES BNP 9 <=100 pg/mL 06/19/2016 [facility] CARDIAC ENZYMES CK MB Index 1.6 0.0 - 2.5 06/19/2016 [facility] CHEM PANEL eGFR 54 06/19/2016 Result Comment: The eGFR is calculated using the [...] from the National Kidney Disease Education Program (NKDEP) which additionally recommends that when the eGFR is used in patients with extremes of body mass index for purposes of drug dosing, the eGFR should be multiplied by the estimated BMI. [facility] CHEM PANEL Alk Phos 137 39 - 136 06/19/2016 [facility] CHEM PANEL B/C Ratio 18 6 - 25 06/19/2016 [facility] CHEM PANEL Bili Total 0.3 0.2 - 1.3 06/19/2016 [facility] CHEM PANEL AST 14 0 - 37 06/19/2016 [facility] CHEM PANEL Total Protein 7.7 6.4 - 8.4 06/19/2016 [facility] CHEM PANEL AGAP 14.2 10.0 - 20.0 06/19/2016 [facility] CHEM PANEL Albumin Lvl 4.0 3.5 - 5.0 06/19/2016 [facility] CHEM PANEL Globulin 3.7 2.7 - 4.2 06/19/2016 [facility] CHEM PANEL A/G Ratio 1.1 0.7 - 1.6 06/19/2016 [facility] CHEM PANEL Chloride Lvl 105 95 - 109 06/19/2016 [facility] CHEM PANEL ALT 20 0 - 65 06/19/2016 [facility] CHEM PANEL Calcium Lvl 8.6 8.5 - 10.5 06/19/2016 [facility] CHEM PANEL CO2 25 24 - 32 06/19/2016 [facility] CHEM PANEL BUN 21 7 - 22 06/19/2016 [facility] CHEM PANEL Sodium Lvl 140 135 - 145 06/19/2016 [facility] CHEM PANEL Creatinine Lvl 1.20 0.50 - 1.40 06/19/2016 [facility] CHEM PANEL Potassium Lvl 4.2 3.5 - 5.1 06/19/2016 [facility] CHEM PANEL Glucose Lvl 147 70 - 99 06/19/2016 [facility] HEMATOLOGY Platelet 193 133 - 450 06/19/2016 [facility] HEMATOLOGY MPV 9.4 7.4 - 10.4 06/19/2016 [facility] HEMATOLOGY MCHC 30.4 32.0 - 36.0 06/19/2016 [facility] HEMATOLOGY RDW 20.2 11.5 - 14.5 06/19/2016 [facility] Hct 29.8 36.0 - 48.0 06/19/2016 [facility] HEMATOLOGY MCV 66.1 80.0 - 98.0 06/19/2016 [facility] MCH 20.1 27.0 - 31.0 06/19/2016 [facility] HEMATOLOGY WBC 8.4 3.7 - 10.4 06/19/2016 [facility] HEMATOLOGY RBC 4.51 4.20 - 5.40 06/19/2016 [facility] HEMATOLOGY Hgb 9.1 12.0 - 16.0 06/19/2016 [facility] Microcyte 3+ *NA* (06/19/16 12:18 AM) None Seen 06/19/2016 [facility] HEMATOLOGY Lymphocytes # 1.6 1.0 - 5.5 06/19/2016 [facility] HEMATOLOGY Segs-Bands # 6.1 1.5 - 8.1 06/19/2016 [facility] HEMATOLOGY Eosinophils # 0.1 0.0 - 0.5 06/19/2016 [facility] HEMATOLOGY Monocytes # 0.6 0.0 - 0.8 06/19/2016 [facility] HEMATOLOGY Monocytes 7.6 2.0 - 12.0 06/19/2016 [facility] HEMATOLOGY Basophils 0.3 0.0 - 1.0 06/19/2016 [facility] HEMATOLOGY Eosinophils 0.8 0.0 - 4.0 06/19/2016 [facility] HEMATOLOGY Lymphocytes 18.5 20.0 - 40.0 06/19/2016 [facility] HEMATOLOGY Segs 72.8 45.0 - 75.0 06/19/2016 [facility] CHEM PANEL eGFR 54 06/07/2016 Result Comment: The eGFR is calculated using the [...] from the National Kidney Disease Education Program (NKDEP) which additionally recommends that when the eGFR is used in patients with extremes of body mass index for purposes of drug dosing, the eGFR should be multiplied by the estimated BMI. [facility] CHEM PANEL Glucose Lvl 313 70 - 99 06/07/2016 [facility] CHEM PANEL BUN 21 7 - 22 06/07/2016 [facility] CHEM PANEL Creatinine Lvl 1.20 0.50 - 1.40 06/07/2016 [facility] CHEM PANEL Calcium Lvl 8.3 8.5 - 10.5 06/07/2016 [facility] CHEM PANEL CO2 22 24 - 32 06/07/2016 [facility] CHEM PANEL Chloride Lvl 105 95 - 109 06/07/2016 [facility] CHEM PANEL Sodium Lvl 137 135 - 145 06/07/2016 [facility] CHEM PANEL Potassium Lvl 4.1 3.5 - 5.1 06/07/2016 [facility] CHEM PANEL AGAP 14.1 10.0 - 20.0 06/07/2016 [facility] HEMATOLOGY MCHC 30.6 32.0 - 36.0 06/07/2016 [facility] MCH 20.1 27.0 - 31.0 06/07/2016 [facility] HEMATOLOGY MCV 65.7 80.0 - 98.0 06/07/2016 [facility] RDW 19.8 11.5 - 14.5 06/07/2016 [facility] Hct 25.1 36.0 - 48.0 06/07/2016 [facility] MPV 9.4 7.4 - 10.4 06/07/2016 [facility] HEMATOLOGY Platelet 190 133 - 450 06/07/2016 [facility] HEMATOLOGY WBC 6.3 3.7 - 10.4 06/07/2016 [facility] HEMATOLOGY Hgb 7.7 12.0 - 16.0 06/07/2016 [facility] HEMATOLOGY RBC 3.82 4.20 - 5.40 06/07/2016 [facility] Microcyte 3+ *NA* (06/07/16 12:52 PM) None Seen 06/07/2016 [facility] HEMATOLOGY Plt Morph Keisha l (06/07/16 12:52 PM) 06/07/2016 [facility] HEMATOLOGY Segs 68.2 45.0 - 75.0 06/07/2016 [facility] HEMATOLOGY Lymphocytes 24.6 20.0 - 40.0 06/07/2016 [facility] Monocytes 6.1 2.0 - 12.0 06/07/2016 [facility] Eosinophils 0.5 0.0 - 4.0 06/07/2016 [facility] Segs-Bands # 4.0 1.5 - 8.1 06/07/2016 [facility] Monocytes # 0.4 0.0 - 0.8 06/07/2016 [facility] Lymphocytes # 1.4 1.0 - 5.5 06/07/2016 [facility] Hypochrom 1+ (06/07/16 12:52 PM) None Seen 06/07/2016 [facility] URINE AND STOOL UA Urobilinogen 2.0 0.1 - 1.0 06/07/2016 [facility] URINE AND STOOL UA Nitrite Negative (06/07/16 12:52 PM) Negative 06/07/2016 [facility] URINE AND STOOL UA Leuk Est Negative (06/07/16 12:52 PM) Negative 06/07/2016 [facility] URINE AND STOOL UA WBC 2 0 - 5 06/07/2016 [facility] URINE AND STOOL UA Spec Grav 1.018 <=1.030 06/07/2016 [facility] URINE AND STOOL UA pH 6.0 5.0 - 8.0 06/07/2016 [facility] URINE AND STOOL UA Protein 30 mg/dL Negative mg/dL 06/07/2016 [facility] URINE AND STOOL UA Glucose 500 mg/dL Negative mg/dL 06/07/2016 [facility] URINE AND STOOL UA Ketones Negative mg/dL Negative mg/dL 06/07/2016 [facility] URINE AND STOOL UA Bili Negative *NA* (06/07/16 12:52 PM) Negative 06/07/2016 [facility] URINE AND STOOL UA Blood Negative (06/07/16 12:52 PM) Negative 06/07/2016 [facility] URINE AND STOOL UA Sq Epi Occasional /LPF Few /LPF 06/07/2016 [facility] URINE AND STOOL UA RBC 1 0 - 2 06/07/2016 [facility] URINE AND STOOL UA Color Yellow *NA* (06/07/16 12:52 PM) Yellow 06/07/2016 [facility] URINE AND STOOL UA Turbidity Clear (06/07/16 12:52 PM) Clear 06/07/2016 [facility] URINE CHEM U Preg Negat adan (06/07/16 12:52 PM) Negative 06/07/2016 [facility] BLOOD BANK RESULTS ABO/Rh A POS 01/19/2016 [facility] BLOOD BANK RESULTS Antibody Scrn Negative (01/19/16 2:55 AM) 01/19/2016 [facility] CARDIAC ENZYMES CK MB <0.5 0.5 - 3.6 01/19/2016 [facility] CARDIAC ENZYMES Troponin-I <0.02 0.00 - 0.40 01/19/2016 [facility] CARDIAC ENZYMES Total CK 44 12 - 191 01/19/2016 [facility] CARDIAC ENZYMES CK MB Index <1.1 0.0 - 2.5 01/19/2016 [facility] CHEM PANEL Lactic Acid Lvl 1.4 0.5 - 2.2 01/19/2016 [facility] CHEM PANEL Amylase Lvl 106 25 - 115 01/19/2016 [facility] CHEM PANEL Lipase Lvl 82 73 - 393 01/19/2016 [facility] CHEM PANEL eGFR 45 01/19/2016 Result Comment: The eGFR is calculated using the [...] from the National Kidney Disease Education Program (NKDEP) which additionally recommends that when the eGFR is used in patients with extremes of body mass index for purposes of drug dosing, the eGFR should be multiplied by the estimated BMI. [facility] CHEM PANEL AGAP 12.1 10.0 - 20.0 01/19/2016 [facility] CHEM PANEL Bili Total 0.6 0.2 - 1.3 01/19/2016 [facility] CHEM PANEL Alk Phos 188 39 - 136 01/19/2016 [facility] CHEM PANEL AST 18 0 - 37 01/19/2016 [facility] CHEM PANEL ALT 38 0 - 65 01/19/2016 [facility] CHEM PANEL Potassium Lvl 4.1 3.5 - 5.1 01/19/2016 [facility] CHEM PANEL Sodium Lvl 131 135 - 145 01/19/2016 [facility] CHEM PANEL Creatinine Lvl 1.40 0.50 - 1.40 01/19/2016 [facility] CHEM PANEL BUN 20 7 - 22 01/19/2016 [facility] CHEM PANEL Glucose Lvl 291 70 - 99 01/19/2016 [facility] CHEM PANEL A/G Ratio 1.0 0.7 - 1.6 01/19/2016 [facility] CHEM PANEL Globulin 4.4 2.7 - 4.2 01/19/2016 [facility] CHEM PANEL B/C Ratio 14 6 - 25 01/19/2016 [facility] CHEM PANEL Albumin Lvl 4.4 3.5 - 5.0 01/19/2016 [facility] CHEM PANEL Calcium Lvl 9.2 8.5 - 10.5 01/19/2016 [facility] CHEM PANEL Chloride Lvl 97 95 - 109 01/19/2016 [facility] CHEM PANEL Total Protein 8.8 6.4 - 8.4 01/19/2016 [facility] CHEM PANEL CO2 26 24 - 32 01/19/2016 [facility] ENDOCRINOLOGY S Preg Ne gative *NA* (01/19/16 2:55 AM) Negative 01/19/2016 [facility] HEMATOLOGY MCH 18.9 27.0 - 31.0 01/19/2016 [facility] HEMATOLOGY Platelet 238 133 - 450 01/19/2016 [facility] HEMATOLOGY MPV 9.4 7.4 - 10.4 01/19/2016 [facility] HEMATOLOGY MCHC 30.3 32.0 - 36.0 01/19/2016 [facility] HEMATOLOGY RDW 18.8 11.5 - 14.5 01/19/2016 [facility] HEMATOLOGY RBC 5.46 4.20 - 5.40 01/19/2016 [facility] HEMATOLOGY Hgb 10.3 12.0 - 16.0 01/19/2016 [facility] HEMATOLOGY Hct 34.1 36.0 - 48.0 01/19/2016 [facility] HEMATOLOGY MCV 62.5 80.0 - 98.0 01/19/2016 [facility] HEMATOLOGY WBC 7.3 3.7 - 10.4 01/19/2016 [facility] HEMATOLOGY PT 13.5 12.0 - 14.7 01/19/2016 [facility] INR 1.01 0.85 - 1.17 01/19/2016 [facility] Hypochrom 1+ (01/19/16 2:55 AM) None Seen 01/19/2016 [facility] Microcyte 3+ *NA* (01/19/16 2:55 AM) None Seen 01/19/2016 [facility] Monocytes # 0.6 0.0 - 0.8 01/19/2016 [facility] HEMATOLOGY Segs 67.7 45.0 - 75.0 01/19/2016 [facility] Plt Morph Keisha l (01/19/16 2:55 AM) 01/19/2016 [facility] Segs-Bands # 5.0 1.5 - 8.1 01/19/2016 [facility] HEMATOLOGY Basophils 0.5 0.0 - 1.0 01/19/2016 [facility] Eosinophils 0.4 0.0 - 4.0 01/19/2016 [facility] Monocytes 7.5 2.0 - 12.0 01/19/2016 [facility] Lymphocytes 23.9 20.0 - 40.0 01/19/2016 [facility] Lymphocytes # 1.8 1.0 - 5.5 01/19/2016 [facility] URINE AND STOOL UA Urobilinogen <=1.0 mg/dL 0.1 - 1.0 01/19/2016 [facility] URINE AND STOOL UA Ketones 20 mg/dL Negative mg/dL 01/19/2016 [facility] URINE AND STOOL UA Bili Negative *NA* (01/19/16 2:55 AM) Negative 01/19/2016 [facility] URINE AND STOOL UA Glucose 500 mg/dL Negative mg/dL 01/19/2016 [facility] URINE AND STOOL UA Protein 100 mg/dL Negative mg/dL 01/19/2016 [facility] URINE AND STOOL UA Spec Grav 1.024 <=1.030 01/19/2016 [facility] URINE AND STOOL UA pH 5.0 5.0 - 8.0 01/19/2016 [facility] URINE AND STOOL UA Color Yellow *NA* (01/19/16 2:55 AM) Yellow 01/19/2016 [facility] URINE AND STOOL UA Turbidity Clear (01/19/16 2:55 AM) Clear 01/19/2016 [facility] URINE AND STOOL UA Mucus Few /LPF None Seen /LPF 01/19/2016 [facility] URINE AND STOOL UA Bacteria Occasional /HPF None Seen /HPF 01/19/2016 [facility] [address] URINE AND STOOL UA WBC 3 0 - 5 01/19/2016 [facility] URINE AND STOOL UA RBC <1 0 - 2 01/19/2016 [facility] URINE AND STOOL UA Leuk Est Negative (01/19/16 2:55 AM) Negative 01/19/2016 [facility] URINE AND STOOL UA Sq Epi Occasional /LPF Few /LPF 01/19/2016 [facility] URINE AND STOOL UA Nitrite Negative (01/19/16 2:55 AM) Negative 01/19/2016 [facility] URINE AND STOOL UA Blood Negative (01/19/16 2:55 AM) Negative 01/19/2016 [facility] URINE AND STOOL UA Urobilinogen <=1.0 mg/dL 0.1 - 1.0 09/08/2014 [facility] [address] URINE AND STOOL UA Ketones Negative mg/dL Negative mg/dL 09/08/[address] [facility] [address] URINE AND STOOL UA Blood Negative (09/08/14 5:50 PM) Negative 09/08/2014 [facility] URINE AND STOOL UA Nitrite Negative (09/08/14 5:50 PM) Negative 09/08/2014 [facility] URINE AND STOOL UA Bili Negative *NA* (09/08/14 5:50 PM) Negative 09/08/2014 [facility] URINE AND STOOL UA Leuk Est Negative (09/08/14 5:50 PM) Negative 09/08/2014 [facility] URINE AND STOOL UA WBC 1 0 - 5 09/08/2014 [facility] URINE AND STOOL UA Sq Epi Occasional /LPF Few /LPF 09/08/2014 [facility] URINE AND STOOL UA RBC 3 0 - 2 09/08/2014 [facility] URINE AND STOOL UA Color Yellow *NA* (09/08/14 5:50 PM) Yellow 09/08/2014 [facility] URINE AND STOOL UA pH 5.0 5.0 - 8.0 09/08/2014 [facility] URINE AND STOOL UA Glucose 150 mg/dL Negative mg/dL 09/08/2014 [facility] URINE AND STOOL UA Spec Grav 1.020 <=1.030 09/08/2014 [facility] URINE AND STOOL UA Turbidity Clear (09/08/14 5:50 PM) Clear 09/08/2014 [facility] URINE AND STOOL UA Protein Negative mg/dL Negative mg/dL 09/08/[address] [facility] [address] URINE CHEM U Preg Negat adan (09/08/14 5:50 PM) Negative 09/08/2014 [facility] CHEM PANEL Lipase Lvl 87 73 - 393 09/08/2014 [facility] CHEM PANEL eGFR 50 09/08/2014 <sup>1</sup>Result Comment: The eGFR is calculated using the CKD-EPI formula. In most young, healthy individuals the eGFR will be >90 mL/min/1.73m2. The eGFR declines with age. An eGFR of 60-89 may be normal in some populations, particularly the elderly, for whom the CKD-EPI formula has not been extensively validated. Use of the eGFR is not recommended in the following populations:& lt;br/>
Individuals with unstable creatinine concentrations, including patients and those with serious co-morbid conditions.

Patients with extremes in muscle mass or diet.

The data above are obtained from the National Kidney Disease Education Program (NKDEP) which additionally recommends that when the eGFR is used in patients with extremes of body mass index for purposes of drug dosing, the eGFR should be multiplied by the estimated BMI. [facility] CHEM PANEL Glucose Lvl 158 70 - 99 09/08/2014 <sup>2</sup>Interpretive Data: Adult ref erence range values reflect the clinical guidelines
of the [place] [employer]. [facility] CHEM PANEL AST 19 0 - 37 09/08/2014 [facility] CHEM PANEL BUN 22 7 - 22 09/08/2014 [facility] CHEM PANEL Total Protein 7.3 6.4 - 8.4 09/08/2014 [facility] CHEM PANEL Creatinine Lvl 1.3 0.5 - 1.4 09/08/2014 [facility] CHEM PANEL CO2 25 24 - 32 09/08/2014 [facility] CHEM PANEL ALT 42 0 - 65 09/08/2014 [facility] CHEM PANEL Albumin Lvl 3.6 3.5 - 5.0 09/08/2014 [facility] CHEM PANEL Alk Phos 213 39 - 136 09/08/2014 [facility] CHEM PANEL Bili Total 0.2 0.2 - 1.3 09/08/2014 [facility] CHEM PANEL Potassium Lvl 4.1 3.5 - 5.1 09/08/2014 [facility] CHEM PANEL Sodium Lvl 139 135 - 145 09/08/2014 [facility] CHEM PANEL Chloride Lvl 106 95 - 109 09/08/2014 [facility] CHEM PANEL Calcium Lvl 8.0 8.5 - 10.5 09/08/2014 [facility] CHEM PANEL Globulin 3.7 2.0 - 4.0 09/08/2014 [facility] CHEM PANEL A/G Ratio 1.0 0.7 - 1.6 09/08/2014 [facility] CHEM PANEL AGAP 12.1 10.0 - 20.0 09/08/2014 [facility] CHEM PANEL B/C Ratio 17 6 - 25 09/08/2014 [facility] CHEM PANEL Magnesium Lvl 2.2 1.8 - 2.4 09/08/2014 [facility] CHEM PANEL Phosphorus 2.7 2.5 - 4.5 09/08/2014 [facility] HEMATOLOGY MCHC 32.5 32.0 - 36.0 09/08/2014 [facility] Hct 28.2 36.0 - 48.0 09/08/2014 [facility] MCV 73.7 80.0 - 98.0 09/08/2014 [facility] MCH 23.9 27.0 - 31.0 09/08/2014 [facility] RDW 17.2 11.5 - 14.5 09/08/2014 [facility] Platelet 144 133 - 450 09/08/2014 [facility] HEMATOLOGY MPV 9.1 7.4 - 10.4 09/08/2014 [facility] RBC 3.83 4.20 - 5.40 09/08/2014 [facility] WBC 5.4 3.7 - 10.4 09/08/2014 [facility] Hgb 9.2 12.0 - 16.0 09/08/2014 [facility] Microcyte 1+ *ABN* (09/08/14 5:03 PM) None Seen 09/08/2014 [facility] HEMATOLOGY Eosinophils # 0.1 0.0 - 0.5 09/08/2014 [facility] HEMATOLOGY Monocytes # 0.4 0.0 - 0.8 09/08/2014 [facility] HEMATOLOGY Lymphocytes # 1.4 1.0 - 5.5 09/08/2014 [facility] HEMATOLOGY Basophils 0.6 0.0 - 1.0 09/08/2014 [facility] HEMATOLOGY Segs-Bands # 3.5 1.5 - 8.1 09/08/2014 [facility] HEMATOLOGY Eosinophils 1.3 0.0 - 4.0 09/08/2014 [facility] Lymphocytes 26.3 20.0 - 40.0 09/08/2014 [facility] HEMATOLOGY Monocytes 8.1 2.0 - 12.0 09/08/2014 [facility] HEMATOLOGY Segs 63.7 45.0 - 75.0 09/08/2014 [facility] Pathology Reports No Data Provided for This Section Diagnostic Reports Report Value Date Source Spine lumbar wo contrast MRI P ROCEDURE INFORMATION: Exam: MR Lumbar Spine Without Contrast. Exam date and time: 02/23/2019 5:27 PM Age: 48 years old Clinical history: Low back pain; Additional info: /m54.5 low back pain TECHNIQUE: Imaging protocol: Multiplanar magnetic resonance images of the lumbar spine without intravenous contrast. COMPARISON: No relevant prior studies available. FINDINGS: Vertebrae: There is sacralization of L5. Spinal cord: Conus medullaris ends at T12. L1-L2: Mild facet hypertrophy and ligamentum flavum hypertrophy is noted. There is no significant spinal canal stenosis or neural foraminal narrowing. L2-L3: 3 mm central disc herniation is present. There is moderate annular bulging and posterolateral osteophytes. There is mild bilateral neural foraminal narrowing and mild spinal canal stenosis. L3-L4: L3-L4, disc space narrowing is present. 4 mm central disc herniation is present. There is moderate annular bulging posterolateral osteophytes. There is moderate spinal canal stenosis. Moderate bilateral facet hypertrophy is noted. There is moderate bilateral neural foraminal narrowing. L4-L5: There is moderate bulging. 3 mm right posterolateral disc herniation results in moderate right neural foraminal narrowing. There is mild left neural foraminal narrowing and mild spinal canal stenosis. Mild bilateral facet hypertrophy is noted. L5-S1: Residual disc is noted. No significant spinal canal stenosis or neural foraminal narrowing. Soft tissues: Unremarkable. IMPRESSION: 1. Moderate spinal canal stenosis and mo derate bilateral neural foraminal narrowing at L3-4. 2. Moderate right neural foraminal narro wing at L4-5. 3. Disc herniations at L2-3, L3-4, and L 4-5. 4. Other mild degenerative changes as de scribed. Kurt Paz MD On 02/24/2019 09:55:52; [id number] 02/23/2019 [facility] Spine lumbar wo contrast CT Ra diation Dose CTDIVOL = 0 (mGy): DLP = 615 (mGy-cm) PROCEDURE INFORMATION: Exam: CT Lumbar Spine Without Contrast Exam date and time: 02/23/2019 6:00 PM Age: 48 years old Clinical history: Pain; Additional info: /pain TECHNIQUE: Imaging protocol: Computed tomography images of the lumbar spine without contrast. Total DLP: 615 mGy-cm Radiation optimization: All CT scans at this facility use at least one of these dose optimization techniques: automated exposure control; mA and/or kV adjustment per patient size (includes targeted exams where dose is matched to clinical indication); or iterative reconstruction. COMPARISON: SPINE LUMBAR WO CONTRAST MRI 02/23/2019 5:27 PM FINDINGS: Vertebrae: There is no listhesis, lysis or compression fracture deformity. There is a rudimentary S1-S2 disc space. There is a rudimentary S1-S2 disc space. At the L5-S1 disc space which is desiccated and narrowed, there is a 5 mm broad-based right greater than left bridging osteophyte/calcified disc with severe right S1 lateral recess stenosis. There is moderate right and minimal to moderate left foraminal stenosis. Findings noted on the MR exam. At the L4-5 disc space which is desiccated and narrowed there is a 5 mm broad-based bulging annulus with a more focal central protrusion/chronic subligamentous extrusion with spondylosis/calcified peripheral annular tear. There is hypertrophic change of facet joints and a short pedicle configuration of spinal canal with moderate left and minimal to moderate right lateral recess stenosis and moderate central canal stenosis. There is moderate to severe right and minimal to moderate left foraminal stenosis. Findings noted on the MR exam. At the L3-4 disc space which is degenerated and narrowed there is a 4 mm broad-based bridging osteophyte/calcified peripheral annular tear. There is minimal to moderate lateral recess stenosis central canal stenosis with minimal foraminal stenosis. Soft tissues: The chris and spinae erectae muscles are normal. The partially visualized sacral iliac joints are normal. Patient is status post a cholecystectomy. There is a gastroplasty/fundoplasty present. IMPRESSION: Multilevel discogenic disease is present as described. Jj Bah MD On 02/26/2019 08:19:31; [id number] 02/23/2019 [facility] Abdomen/Pelvis w IV contrast CT Clinical Indication: - abd pain, n/v , hx of gastric bypass. Comparison: None TECHNIQUE: Helical imaging was performed from the diaphragm through the symphysis with multiplanar reformations obtained. IV CONTRAST: 100 mL Omnipaque 300 GI CONTRAST: Positive oral contrast CT imaging performed at this location utilizes radiation dose optimization techniques which include one or more of the following: -Automated exposure control -Adjustment of the mA and/or kV accordin g to patient size -Use of iterative reconstruction [employer] ue CT Radiation Dose DLP 1217 mGy-cm FINDINGS: LUNG BASES: The lung bases are clear. HEPATOBILIARY: The liver is normal. The gallbladder is surgically absent. SPLEEN: The spleen enhances normally. PANCREAS: The pancreas enhances normally. ADRENAL GLANDS: A 2.3 cm right adrenal nodule has internal attenuation of 16 Hounsfield units. This is similar to prior exam. KIDNEYS: The kidneys enhance symmetrically. No hydronephrosis. BOWEL: There are postsurgical changes of gastric bypass. Normal appearance of the Tasha limb and biliopancreatic limb. The bowel is normal in caliber. The appendix is normal. Moderate stool burden. RETROPERITONEUM/PERITONEUM: There is no free fluid. No free air. LYMPH NODES: No adenopathy. VASCULATURE: Abdominal aorta is normal in caliber. PELVIS: The urinary bladder has a normal appearance given its degree of distention. MUSCULOSKELETAL: Degenerative changes are present within the thoracolumbar spine. IMPRESSION: 1. Postsurgical changes of gastric bypa ss without evidence of complication 2. No appreciable acute intra-abdominal abnormality. 3. Unchanged right adrenal nodule SL: [id number] 02/22/2018 [facility] Chest 1view DX Clinical Indica tion: - HTN, vomiting; Comparison: June 18, 2016 FINDINGS: AP chest radiographs shows normal lung volumes without interstitial or airspace opacities, pleural effusions or pneumothorax. The heart size and pulmonary vasculature are normal. The trachea is midline. There are no clinically significant osseous abnormalities noted. IMPRESSION: No chest radiographic evidence of acute cardiopulmonary disease. SL: [id number] 02/22/2018 [facility] Abdomen/Pelvis w IV contrast CT EXAM: CT ABDOMEN AND PELVIS WITH CONTRAST DATE: 01/17/2017 2:12 PM CDT INDICATION: Abdominal pain. COMPARISON: 09/08/2016. TECHNIQUE: Helical CT imaging of the abdomen and pelvis performed from lung bases through the lesser trochanters following the administration of intravenous contrast. Axial, sagittal and coronal multiplanar reconstructions provided. IV contrast: [address] Radiation Dose: DLP = 2092.22 mGy-cm FINDINGS: LOWER CHEST: The lung bases are clear of focal consolidation, pleural effusions, and pneumothorax. The heart is unremarkable without evidence for a pericardial effusion. LIVER: Unremarkable. GALLBLADDER/BILIARY: The patient is status post cholecystectomy. PANCREAS: Unremarkable SPLEEN: Mildly enlarged. ADRENALS: Right adrenal adenoma measures 2.5 cm. KIDNEYS AND URETERS: Unremarkable BLADDER: Unremarkable STOMACH: Postsurgical changes related to Tasha-en-Y gastric bypass. BOWEL: There is mild distention of the proximal alimentary limb with oral contrast, measuring up to 3.6 cm in diameter. No transition point or obstruction is visualized at this time. Mild distention at the distal jejunostomy anastomosis is unchanged from previous exam. Mild to moderate stool burden is noted throughout the colon. APPENDIX: The appendix is visualized and unremarkable. PELVIS: No pelvic masses are identified. PERITONEUM: No ascites or free air. LYMPH NODES: Unremarkable. VASCULAR: Unremarkable. OSSEOUS STRUCTURES: Degenerative changes of the spine without acute osseous abnormality. SOFT TISSUES: Mild subcutaneous edema. IMPRESSION: 1. Postsurgical changes related to Tasha- en-Y gastric bypass. There is mild distention of the proximal alimentary limb with oral contrast without evidence for a transition point or high-grade obstruction. Findings may reflect slow motility or ileus and further evaluation with fluoroscopy may be helpful. 2. Unchanged right adrenal adenoma. 3. Mild splenomegaly. SL: [id number] 01/17/2017 [facility] Ext Lower Venous Doppler Bilat US Ext Lower Venous Doppler Bilat US CLINICAL HX: M79.89 Other specified soft tissue disorders - left leg more swollen than right leg; bilateral leg swelling COMPARISON: none TECHNIQUE: Barcenas scale imaging, compression techniques and spectral analysis were utilized to evaluate the deep venous system of both lower extremities from the inguinal ligament to the popliteal fossa. FINDINGS: There is adequate compression, respiratory variability, and appropriate response to augmentation in the CFV, FV and popliteal veins in both thighs. The junction of the profunda vein to the SFV is patent bilaterally. Posterior tibial trunk and the saphenous vein demonstrate normal compressibility. IMPRESSION: No evidence for deep vein thrombosis in the examined veins of both lower extremities. SL: [id number] 12/23/2016 [facility] Retroperitoneal Complete US Dashawn lbkrista Name: VERONICA MURRELL : 1970; Age: 46 years y/o Female MR: [id number] Study: Retroperitoneal Complete US Clinical Indication: Renal insufficiency - TAMIKO; Comparison: None TECHNIQUE: Multiple longitudinal and transverse real time sonographic images of the kidneys and urinary bladder are obtained. FINDINGS: KIDNEY: The right kidney measures 10.5 x 5.2 x 5cm. The left kidney measures 10.6 x 6 x 5.5 cm. No pelvocaliectasis, nephrolithiasis or renal mass lesion identified bilaterally. BLADDER: Bladder is sonographically unremarkable. IMPRESSION: 1. Unremarkable renal U/S SL: [id number] 09/09/2016 [facility] Abdomen/Pelvis wo IV contrast CT Study: Abdomen/Pelvis wo IV contrast CT Clinical Indication: CT DLP 890.24 - intractable n/v, h/o gastric bypass Comparison: CT abdomen and pelvis from 08/17/2016 TECHNIQUE: Multiple axial CT images of the abdomen and pelvis were acquired without the administration of intravenous contrast. Sagittal and coronal reformatted images were performed. CT Radiation Dose DLP 890.24 mGy-cm FINDINGS: The visualized lung bases are clear bilaterally. Splenomegaly is noted. 2.5 cm right adrenal adenoma is stable. Patient is status post cholecystectomy. Liver, pancreas, left adrenal gland, and kidneys are within the normal limits imposed by the lack of intravenous contrast. Urinary bladder, uterus, and ovaries are unremarkable. Stable postoperative changes of Tasha-en-Y gastric bypass surgery are seen. The remaining visualized hollow viscera and appendix are normal in appearance. No intraperitoneal free air, free fluid, or pathologic adenopathy is seen. Degenerative changes of the lumbar spine are seen. IMPRESSION: 1. No acute intra-abdominal/pelvic abnor mality. 2. Splenomegaly. 3. Stable 2.5 cm right adrenal adenoma. SL: [id number] 09/08/2016 [facility] Abdomen wo contrast MRI Abdome n wo contrast MRI CLINICAL INDICATION: Patient states that she had gastric bypass surgery in 2004 and that she has been having periodic vomiting episodes that has been intractable. - elevated LFT; COMPARISON: None TECHNIQUE: Thick slab MRCP images and maximum intensity projection images were obtained. Coronal T2, axial T2 and oblique axial T2 images are also available for review. No IV contrast was administered. FINDINGS: BILIARY SYSTEM: There is moderate dilation of the proximal common bile duct to 12 mm. There is however normal tapering of the distal common bile duct. Evaluation of the biliary system is limited on the current examination due to artifact generated from surgical clips in the solid but repeat imaging of the pelvis are very helpful without patient's colon. The patient was scanned in the standard technique and returned to the MRI suite for additional scans to mitigate the artifact. Even on repeat images, there remains artifact in the midportion of CBD. However, I do not see convincing evidence for choledocholithiasis on the available images. LIVER AND GALLBLADDER: There is normal liver contour and morphology with normal signal intensity. Status post cholecystectomy. No significant intrahepatic bile duct dilation is noted. PANCREAS AND PANCREATIC DUCT: The pancreas demonstrates normal morphology. Pancreatic duct is normal in caliber. UPPER ABDOMEN: The spleen, left adrenal and kidneys are normal. 2.1 cm right adrenal adenoma is noted. There is no significant retroperitoneal lymphadenopathy. No ascites. IMPRESSION: No convincing evidence for choledocholithiasis. Evaluation is limited due to prominent artifact as discussed above. Correlation with liver function tests recommended. Right adrenal adenoma. SL: [id number] 08/19/2016 [facility] Abdomen/Pelvis wo IV contrast CT CT SCAN OF THE ABDOMEN [<AND PELVIS>] WITHOUT CONTRAST. HX: Clinical Indication: C/o vomiting for 2 weeks. C/o upper abd pain. Hx Gastric bipass in 2004. vomiting - ct dlp 948.37; . Comparison: None Technique: Helical CT images were obtained from the domes the diaphragms to the symphysis pubis without the administration of oral or intravenous contrast. The lack of IV contrast lowers the sensitivity for diagnostic evaluation. ABDOMEN AND PELVIS: The lung bases are clear. The heart is normal in size. Small pericardial effusion is present. Anemia. Postoperative gastric bypass is present. Small bowel anastomosis is present within the left upper quadrant. Postoperative cholecystectomy. The unenhanced liver, spleen, pancreas, and adrenals are normal in appearance. A 2.3 cm (HU-13) low-density right adrenal nodule is present likely an adenoma. Abundance of stool within the colon. Grossly normal appendix. Grossly normal uterus and adnexa. The bladder is nondistended. Severe thoracic and lumbar spondylosis and marked facet arthrosis. IMPRESSION: 1. No definite obstructive uropathy. 2. Postoperative gastric bypass and left upper quadrant small bowel anastomosis. 3. Postoperative cholecystectomy. 4. A 2.3 cm (HU-13) low-density right ad renal nodule is present likely an adenoma. 5. Small pericardial effusion is present . Anemia. SL: [id number] 08/17/2016 [facility] wo contrast MRI EXAM: MR I BRAIN WITHOUT CONTRAST DATE: 06/19/2016 6:31 AM CDT INDICATION: Confusion. COMPARISON: CT brain dated June 18, 2016. TECHNIQUE: Multiplanar, multisequence MRI imaging of the brain was acquired without intravenous contrast. FINDINGS: The examination was limited by motion artifact. In addition, gradient echo and axial T2 sequences were not acquired. No acute intracranial hemorrhage, midline shift, or mass effect is identified. The ventricles and sulci are within normal limits, without evidence for hydrocephalus. No evidence for restricted diffusion is present to suggest an acute infarct. The orbits, paranasal sinuses, and mastoid air cells are unremarkable. The major intracranial flow voids are maintained. IMPRESSION: Unremarkable MRI of the brain. Axial gradient echo and T2 weighted sequences were not obtained, limiting exam. SL: [id number] 06/19/2016 [facility] Chest 1view DX Exam: Chest X- Ray Clinical Indication: dyspnea Technique: Frontal view of the chest is provided. Findings: Heart and mediastinum are normal. Lungs are clear. There are no pleural effusions. Impression: No acute intrathoracic disease. 06/18/2016 [facility] contrast CT Study: Rolan fagan wo contrast CT 06/18/2016 11:32 PM CDT Patient Name: VERONICA MURRELL MR: [id number] : 1970; Age: 46 years y/o Female Ordering Physician: Carlyle Do DO Clinical Indication: Altered mental status. Comparison: None TECHNIQUE: CT images were obtained from the foramen magnum to the vertex without the use of intravenous contrast on a multidetector CT. Coronal and sagittal reformatted images were prepared. DLP: 1763.76 mGy-cm. FINDINGS: BRAIN PARENCHYMA: 1. Mild diffuse age-appropriate atrophy is present associated with mild nonspecific periventricular low attenuation most consistent with old microangiopathic ischemic change. 2. No evidence of acute intracranial he morrhage, mass lesion, mass effect, midline shift, or extra-axial fluid collection. VENTRICLES: The lateral ventricles, third ventricle, fourth ventricle, and basilar cisterns are appropriate for degree of atrophy present. PARANASAL SINUSES: The visualized portions of the paranasal sinuses are clear. MASTOIDS: Clear. ORBITS AND SOFT TISSUES: The visualized portions of the orbits are normal. SKULL: No acute fracture or suspicious osseous lesion. IMPRESSION: 1. Mild diffuse age-appropriate atrophy is present associated with mild nonspecific periventricular low attenuation most consistent with old microangiopathic ischemic change. SL: TPAINTER-PC 06/18/2016 [facility] ED Abdomen/Pelvis IV contrast only CT Clinical Indication:45 years Female Abdominal pain, acute; fever, suprapubic pressure, decreased urine output, edilson flank pain x 1 wk Comparison: CT abdomen and pelvis 01/19/2016 TECHNIQUE: Helical imaging was performed diaphragm through the symphysis with multiplanar reformations obtained. IV CONTRAST: 75 mL Visipaque GI CONTRAST: None DLP: 2074 mGy-cm FINDINGS: Lower thorax: Clear. Hepatobiliary: No focal hepatic lesion. No biliary ductal dilatation. Focal fatty infiltration adjacent to the falciform ligament. Pancreas: No focal mass or ductal dilatation. Cholecystectomy. Spleen: No splenomegaly. Adrenals: No nodules. Kidneys: Unchanged 1.9 cm hypodense right adrenal nodule. Pelvic organs: Uterus is unremarkable. Bladder is decompressed which limits evaluation. Bilateral probable ovarian cysts. Peritoneum/Retroperitoneum: No free air or free fluid. Lymph nodes: No lymphadenopathy. Vessels: Unremarkable. Bowel: Stable surgical changes from gastric bypass. Left upper abdominal small bowel suture lines are also noted. No dilated loops of small bowel. No wall thickening. The appendix is visualized and appears unremarkable. Bones and soft tissues: No acute abdomen modalities. Degenerative changes in the lower lumbar spine with multilevel disc bulges and mild to moderate canal stenosis. IMPRESSION: 1. No acute abnormalities of the abdomen or pelvis. 2. Unchanged indeterminate 1.9 cm hypode nse right adrenal nodule. SL: [id number] 06/07/2016 [facility] Abdomen/Pelvis w IV contrast CT EXAM: CT ABDOMEN AND PELVIS WITH CONTRAST DATE: 01/19/2016 2:13 AM CDT INDICATION: Abdominal pain, acute; nausea and vomiting ADDITIONAL INFORMATION: History of gastric bypass COMPARISON: None. TECHNIQUE: Volumetric CT acquisition of the abdomen and pelvis after the intravenous administration contrast. Axial, coronal and sagittal reconstructions. Postcontrast phases: Venous and delayed IV contrast: [address] Radiation Dose DLP 2114 mGy-cm FINDINGS: Lines and tubes: None. Lower thorax: Unremarkable. Liver and biliary tree: Normal. Gallbladder: Surgically absent. Pancreas: Normal. Spleen: Normal. Adrenals: There is an indeterminate 1.9 cm right adrenal gland nodule. The left adrenal gland is unremarkable Kidneys and ureters: Normal. No hydronephrosis. Bladder: Normal. Reproductive organs: Normal. Gastrointestinal tract: There are postsurgical changes in the stomach from a gastric bypass. There is no evidence of obstruction. Appendix: The appendix is normal. Peritoneum and retroperitoneum: No ascites or free air. Lymph nodes: No pathologic adenopathy. Vasculature: Unremarkable. Bones: No acute abnormality. Soft tissues: Unremarkable. IMPRESSION: 1. No acute abnormality. 2. Gastric bypass. 3. Indeterminate 1.9 cm right adrenal n odule. 4. Cholecystectomy. SL: [id number] 01/19/2016 [facility] Consultation Notes No Data Provided for This Section Discharge Summaries No Data Provided for This Section History and Physicals No Data Provided for This Section Vital Signs Vital Sign Value Date Comments Source Systolic (mm Hg) 147 12/11/2018 [facility] Diastolic (mm Hg) 98 12/11/2018 [facility] Respitory Rate 16 12/11/2018 [facility] Systolic (mm Hg) 147 12/11/2018 [facility] Diastolic (mm Hg) 98 12/11/2018 [facility] Respitory Rate 15 12/11/2018 [facility] Respitory Rate 16 12/11/2018 [facility] Heart Rate 63 12/11/2018 [facility] Height 167.64 cm 12/06/2018 [facility] Weight 97.784 12/06/2018 [facility] BMI Calculated 34.79 12/06/2018 [facility] Temperature Oral (F) 98.7 F 12/06/2018 [facility] Heart Rate 71 12/06/2018 [facility] Systolic (mm Hg) 148 11/14/2018 [facility] Diastolic (mm Hg) 91 11/14/2018 [facility] Heart Rate 93 11/14/2018 [facility] Height 167.64 cm 11/14/2018 [facility] Weight 90.909 11/14/2018 [facility] BMI Calculated 32.35 11/14/2018 [facility] Respitory Rate 18 02/23/2018 [facility] Temperature Oral (F) 98.0 F 02/23/2018 [facility] Heart Rate 88 02/23/2018 [facility] Systolic (mm Hg) 126 02/23/2018 [facility] Diastolic (mm Hg) 82 02/23/2018 [facility] Systolic (mm Hg) 161 02/23/2018 [facility] Diastolic (mm Hg) 95 02/23/2018 [facility] Heart Rate 83 02/23/2018 [facility] Respitory Rate 18 02/23/2018 [facility] Systolic (mm Hg) 158 02/23/2018 [facility] Diastolic (mm Hg) 108 02/23/2018 [facility] Heart Rate 80 02/23/2018 [facility] Respitory Rate 16 02/23/2018 [facility] Temperature Oral (F) 98.8 F 02/23/2018 [facility] Weight 81.818 02/22/2018 [facility] Temperature Oral (F) 98.7 F 02/22/2018 [facility] Height 167.64 cm 02/22/2018 [facility] BMI Calculated 29.11 02/22/2018 [facility] Temperature Oral (F) 98.0 F 01/18/2017 [facility] Systolic (mm Hg) 136 01/18/2017 [facility] Diastolic (mm Hg) 96 01/18/2017 [facility] Respitory Rate 18 01/18/2017 [facility] Systolic (mm Hg) 150 01/17/2017 [facility] Diastolic (mm Hg) 76 01/17/2017 [facility] Temperature Oral (F) 98.2 F 01/17/2017 [facility] Respitory Rate 18 01/17/2017 [facility] Respitory Rate 20 01/17/2017 [facility] Temperature Oral (F) 98.5 F 01/17/2017 [facility] Systolic (mm Hg) 129 01/17/2017 [facility] Diastolic (mm Hg) 84 01/17/2017 [facility] Weight 91.818 01/17/2017 [facility] BMI Calculated 32.67 01/17/2017 [facility] Heart Rate 62 01/17/2017 [facility] Height 167.64 cm 01/17/2017 [facility] Temperature Oral (F) 98.5 F 11/15/2016 [facility] Systolic (mm Hg) 126 11/15/2016 [facility] Diastolic (mm Hg) 86 11/15/2016 [facility] Respitory Rate 18 11/15/2016 [facility] Heart Rate 78 11/15/2016 [facility] Heart Rate 69 11/08/2016 [facility] Temperature Oral (F) 98.1 F 11/08/2016 [facility] Systolic (mm Hg) 113 11/08/2016 [facility] Diastolic (mm Hg) 74 11/08/2016 [facility] Respitory Rate 18 11/08/2016 [facility] Respitory Rate 18 11/02/2016 [facility] Temperature Oral (F) 98.8 F 11/02/2016 [facility] Heart Rate 53 11/02/2016 [facility] Systolic (mm Hg) 170 11/02/2016 [facility] Diastolic (mm Hg) 90 11/02/2016 [facility] BMI Calculated 31.37 10/15/2016 [facility] Weight 88.12 10/15/2016 [facility] Height 167.6 cm 10/15/2016 [facility] Temperature Oral (F) 98.8 F 09/10/2016 [facility] Respitory Rate 18 09/10/2016 [facility] Systolic (mm Hg) 186 09/10/2016 [facility] Diastolic (mm Hg) 97 09/10/2016 [facility] Heart Rate 54 09/10/2016 [facility] Systolic (mm Hg) 141 09/10/2016 [facility] Diastolic (mm Hg) 79 09/10/2016 [facility] Respitory Rate 18 09/10/2016 [facility] Heart Rate 47 09/10/2016 [facility] Temperature Oral (F) 98.3 F 09/10/2016 [facility] Systolic (mm Hg) 112 09/10/2016 [facility] Diastolic (mm Hg) 74 09/10/2016 [facility] Respitory Rate 18 09/10/2016 [facility] Heart Rate 48 09/10/2016 [facility] Temperature Oral (F) 98.0 F 09/10/2016 [facility] BMI Calculated 31.38 09/08/2016 [facility] Weight 88.182 09/08/2016 [facility] Height 167.64 cm 09/08/2016 [facility] Weight 88.182 09/08/2016 [facility] Height 167.64 cm 09/08/2016 [facility] BMI Calculated 31.38 09/08/2016 [facility] Systolic (mm Hg) 130 08/20/2016 [facility] Diastolic (mm Hg) 88 08/20/2016 [facility] Temperature Oral (F) 98.5 F 08/20/2016 [facility] Heart Rate 55 08/20/2016 [facility] Respitory Rate 18 08/20/2016 [facility] Respitory Rate 16 08/20/2016 [facility] Systolic (mm Hg) 119 08/20/2016 [facility] Diastolic (mm Hg) 78 08/20/2016 [facility] Heart Rate 50 08/20/2016 [facility] Respitory Rate 16 08/20/2016 [facility] Systolic (mm Hg) 146 08/20/2016 [facility] Diastolic (mm Hg) 92 08/20/2016 [facility] Heart Rate 52 08/20/2016 [facility] Temperature Oral (F) 98.5 F 08/20/2016 [facility] Temperature Oral (F) 98.7 F 08/20/2016 [facility] Height 167.64 cm 08/17/2016 [facility] Weight 91.364 08/17/2016 [facility] BMI Calculated 32.51 08/17/2016 [facility] Respitory Rate 18 06/20/2016 [facility] Systolic (mm Hg) 145 06/20/2016 [facility] Diastolic (mm Hg) 91 06/20/2016 [facility] Temperature Oral (F) 98.1 F 06/20/2016 [facility] Heart Rate 86 06/20/2016 [facility] Systolic (mm Hg) 112 06/20/2016 [facility] Diastolic (mm Hg) 71 06/20/2016 [facility] Respitory Rate 18 06/20/2016 [facility] Heart Rate 93 06/20/2016 [facility] Temperature Oral (F) 98.4 F 06/20/2016 [facility] Heart Rate 82 06/20/2016 [facility] Temperature Oral (F) 98.1 F 06/20/2016 [facility] Systolic (mm Hg) 122 06/20/2016 [facility] Diastolic (mm Hg) 82 06/20/2016 [facility] Respitory Rate 18 06/20/2016 [facility] Height 165.1 cm 06/19/2016 [facility] Weight 90.2 06/19/2016 [facility] BMI Calculated 33.09 06/19/2016 [facility] Weight 81.818 06/19/2016 [facility] BMI Calculated 30.02 06/19/2016 [facility] Height 165.1 cm 06/19/2016 [facility] Respitory Rate 18 06/07/2016 [facility] Systolic (mm Hg) 137 06/07/2016 [facility] Diastolic (mm Hg) 79 06/07/2016 [facility] Temperature Oral (F) 97.7 F 06/07/2016 [facility] Heart Rate 56 06/07/2016 [facility] Height 167.64 cm 06/07/2016 [facility] Weight 95.455 06/07/2016 [facility] BMI Calculated 33.97 06/07/2016 [facility] Respitory Rate 18 06/07/2016 [facility] Temperature Oral (F) 98 F 06/07/2016 [facility] Heart Rate 60 06/07/2016 [facility] Systolic (mm Hg) 104 06/07/2016 [facility] Diastolic (mm Hg) 71 06/07/2016 [facility] Respitory Rate 20 01/19/2016 [facility] Systolic (mm Hg) 173 01/19/2016 [facility] Diastolic (mm Hg) 88 01/19/2016 [facility] Heart Rate 100 01/19/2016 [facility] Temperature Oral (F) 97.9 F 01/19/2016 [facility] Systolic (mm Hg) 173 01/19/2016 [facility] Diastolic (mm Hg) 97 01/19/2016 [facility] Systolic (mm Hg) 180 01/19/2016 [facility] Diastolic (mm Hg) 96 01/19/2016 [facility] Respitory Rate 20 01/19/2016 [facility] Temperature Oral (F) 99.0 F 01/19/2016 [facility] Heart Rate 100 01/19/2016 [facility] BMI Calculated 35.58 01/19/2016 [facility] Weight 100 01/19/2016 [facility] Height 167.64 cm 01/19/2016 [facility] Heart Rate 121 01/19/2016 [facility] Respitory Rate 18 01/19/2016 [facility] Temperature Oral (F) 99.2 F 01/19/2016 [facility] Systolic (mm Hg) 123 09/09/2014 [facility] Diastolic (mm Hg) 60 09/09/2014 [facility] Temperature Oral (F) 97.9 F 09/09/2014 [facility] Respitory Rate 18 09/09/2014 [facility] Heart Rate 68 09/09/2014 [facility] Weight 109.091 09/08/2014 [facility] BMI Calculated 38.82 09/08/2014 [facility] Height 167.64 cm 09/08/2014 [facility] Temperature Oral (F) 98.6 F 09/08/2014 [facility] Respitory Rate 18 09/08/2014 [facility] Heart Rate 85 09/08/2014 [facility] Systolic (mm Hg) 120 09/08/2014 [facility] Diastolic (mm Hg) 76 09/08/2014 [facility] Encounters Location Location Details Encounter Type Encounter Number Reason For Visit Attending Provider ADM Date DC Date Status Source [facility] [id number] 01 Juan Pablo Graff 09/08/2014 09/09/2014 [facility] Emergency [id number] Garrett Maldonado 01/19/2016 01/19/2016 [facility] Emergency [id number] Juan Pablo Graff 06/07/2016 06/07/2016 [facility] Observation [id number] Amir Ghebranious 06/19/2016 06/20/2016 [facility] Inpatient [id number] Amir Ghebranious 08/17/2016 08/20/2016 [facility] Observation [id number] Amir Ghebranious 09/08/2016 09/10/2016 [facility] Recurring [id number] Jamie Archer 10/18/2016 11/17/2016 [facility] Outpatient [id number] Brie Reeves 12/23/2016 12/24/2016 [facility] Emergency [id number] Lencho Berg 01/17/2017 01/18/2017 [facility] Emergency [id number] Jb Leslye 02/22/2018 02/23/2018 [facility] Neurosurgery [facility] Phone Message [id number] 10/25/2018 10/27/2018 [facility] [id number] [facility] 11/14/2018 [facility] Neurosurgery [facility] Outpatient [id number] [facility] 11/14/2018 11/15/2018 [facility]patient [id number] [facility] 12/11/2018 [facility] Bedded Outpatient [id number] [facility] 12/11/2018 12/11/2018 [facility] Outpatient [id number] [facility] 02/23/2019 02/24/2019 [facility] Procedures Procedure Code Date Perfomer Comments Source Cholecystectomy [id number] [facility] Hernia repair [id number] [facility] Tasha-en-y gastric bypass [id number] [facility] Colonoscopy [id number] [facility] Hysterectomy [id number] [facility] Assessment and Plan Assessment and Plan Date Source Extracted from:Title: Clinical Document Author: Shiva Mcclure MD Date: 09/10/16 Progress Note - Daily [facility] Completed: Sep, 08:30 by Shiva Mcclure MD RM: CCDU - 03, SE MALINI COWARTIREVERONICA Mccormick 46y (: 1970) F Attending: Shiva Mcclure MD Service: Internal Medicine Reason for Admission: ACUTE RENAL FAILURE Working DRG: None Documented Code status: None Specified=FULL CODE Current diet: Isolation: None Documented Allergies: lisinopril SUBJECTIVE OBJECTIVE 24hr Labs 09/10 0800 Glucose POC 157 H 09/10 0549 Glucose Lvl 151 H BUN 32 H Creatinine Lvl 2.00 H Sodium Lvl 139 Potassium Lvl 4.1 Chloride Lvl 107 CO2 22 L AGAP 14.1 Calcium Lvl 8.7 eGFR 29 WBC 6.4 RBC 4.28 Hgb 8.8 L Hct 29.1 L MCV 67.9 L MCH 20.6 L MCHC 30.3 L RDW 18.6 H Platelet 182 MPV 9.9 09/10 0306 U Microalb 21.5 U Creatinine 120.00 U Alb/Crea 17.9 U Sodium 48 U Eos None Seen UA Color Ltyellow UA Turbidity Clear UA Spec Grav 1.009 UA pH 5.0 UA Protein Negative UA Glucose Negative UA Ketones Negative UA Bili Negative UA Blood Negative UA Urobilinogen <=1.0 UA Nitrite Negative UA Leuk Est Trace UA RBC <1 UA WBC 5 UA Bacteria Occasional UA Sq Epi Few 09/09 2139 Glucose POC 83 09/09 1612 Glucose POC 211 H 09/09 1342 Glucose Lvl 354 H BUN 29 H Creatinine Lvl 2.30 H Sodium Lvl 137 Potassium Lvl 5.1 Chloride Lvl 106 CO2 22 L AGAP 14.1 Calcium Lvl 8.2 L eGFR 25 WBC 6.8 RBC 3.59 L Hgb 7.4 L Hct 24.4 L MCV 67.9 L MCH 20.7 L MCHC 30.5 L RDW 18.5 H Platelet 187 MPV 9.6 09/09 1101 Glucose POC 220 H Hawk still necessary (Yes/No): Line still necessary (Yes/No): Vitals Tmp(F) Pulse BP RR SpO2 FIO2 06/09 07:58 98.3 47 141/79 1 8 99 --- 09/10 04:00 98.0 48 112/74 1 8 99 --- 09/09 23:15 97.9 94 90/56 18 96 --- 09/09 19:36 98.6 54 121/77 1 7 100 --- 09/09 15:30 97.7 88 95/53 18 100 --- 24 Hr Tmax: 99F (37.22c) at 09/09 10:40 Vital Signs are the last 5 in the past 48 hours. 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 TEACHING ATTESTATION Extracted from:Title: Nephrology consultation Author: Ab Rodriguez MD Date: 09/09/16 Patient: VERONICA MURRELL Age: 46 years Sex: Female : 1970 Associated Diagnoses: None Author: Ab Rdoriguez MD Chief Complaint Acute kidney injury History [...] history of kidney stones, herbal supplements, any [id number] medications, chronic UTIs, chronic obstruction from the [...] Lisinopril- No reactions were documented., Allergies (1) Active Reaction lisinopril None Documented Current medications: (Selected) Inpatient Medications Ordered [...] mg, 2 mL, IVP, Q6H, PRN: Nausea and Vomiting sodium chloride 0.9% 1000 ml INJ [...] All Problems HTN (hypertension) / SNOMED CT 9962536280 / Confirmed Diabetes / SNOMED CT 609128704 / Confirmed Bipolar disorder / SNOMED CT 4798020355 / Confirmed Anxiety / SNOMED CT 8866686247 / Confirmed Nausea / SNOMED CT 4121270840 / Confirmed HLD (hyperlipidemia) / SNOMED CT 03158928 / Confirmed, Active Problems (6) Anxiety Bipolar disorder Diabetes HLD (hyperlipidemia) HTN (hypertension) Nausea Histories Past Medical History: Active HTN (hypertension) (7514720122) Diabetes (157845672) HLD (hyperlipidemia) (76786095) Bipolar disorder (6985852388) Anxiety (4857892715) Family History: High blood pressure Father Mother Heart failure Father Bipolar disorder Brother Type 2 diabetes mellitus Mother Sister Father Myeloma Mother CA - Cancer of ovary Mother Stroke Sister Heart attack Father Hepatitis Brother Kidney stone Brother Deep vein thrombosis Father Back pain Father Procedure history: Cholecystectomy (75712794). Tasha-en-y gastric bypass (0007723455). Hernia repair (90870325). Social History Social and Psychosocial Habits Alcohol 06/19/2016 Use: Never Tobacco 09/08/2016 Use: Never smoker Exposure to Tobacco Smoke None Cigarette Smoking Last 365 Days No Reg Smoking Cessation Counseling No . Physical Examination VS/Measurements Vital Signs (last 24 hrs) Last Charted Temp Oral 98.6 DegF (SEP 09 19:36) Heart Rate Peripheral L 54bpm (SEP 09:36) Resp Rate 17 BRMIN (SEP 09:36) SBP 121 mmHg (SEP 09:) DBP 77 mmHg (SEP 09:) SpO2 100 % (SEP 09:) Intake and Output I/O Intake Output Balance 09/09/2016 7a-3p 3.00 0.00 3.00 3p-11p 52.00 0.00 52.00 As of 22:22 11p-7a 0.00 0.00 0.00 Totals 55.00 0.00 55.00 09/08/2016 7a-3p 52.00 0.00 52.00 3p-11p 104.00 0.00 104.00 11p-7a 0.00 0.00 0.00 Totals 156.00 0.00 156.00 09/07/2016 7a-3p 0.00 0.00 0.00 3p-11p 0.00 0.00 0.00 11p-7a 1052.00 0.00 1052.00 Totals 1052.00 0.00 [...] clear and coherent. Psychiatric: Cooperative, Appropriate mood and affect. Review / Management Results review: Labs (Last four charted values) WBC 6.8 (SEP 08) 7.2 (SEP 08) 8.1 (SEP 07) Hgb L 7.4 (SEP 08) L 8.2 (SEP 08) L 9.5 (SEP 07) Hct L 24.4 (SEP 08) L 26.6 (SEP 08) L 31.4 (SEP 07) Plt 187 (SEP 08) 187 (SEP 08) 202 (SEP 07) Na 137 (SEP 08) 140 (SEP 08) 140 (SEP 08) 138 (SEP 08) K 5.1 (SEP 09) 4.5 (SEP 09) 4.5 (SEP 09) 4.3 (SEP 08) CO2 L 22 (SEP 08) 25 (SEP 08) 25 (SEP 08) L 23 (SEP 07) Cl 106 (SEP 09) 106 (SEP 08) 108 (SEP 09) 106 (SEP 08) Cr H 2.30 (SEP 08) H 1.90 (SEP 08) H 1.90 (SEP 08) H 1.70 (SEP 08) BUN H 29 (SEP 08) H 25 (SEP 08) H 25 (SEP 08) H 27 (SEP 07) Glucose Random H 354 (SEP 08) H 173 (SEP 08) H 175 (SEP 08) H 309 (SEP 07) Ca L 8.2 (SEP 08) 8.7 (SEP 08) 8.5 (SEP 08) 9.9 (SEP 08) . CT abdomen pelvis without contrast: IMPRESSION: 1. [...] medications to maintain a higher pressure. Addendum by Ab Rodriguez MD on 09/09/2016 22:38 Patient's blood pressure was in the 90s this evening and told nurse to hold atenolol and clonidine. Monitor very closely 09/10/2016 [facility] Extracted from:Title: Clinical Document Author: Shiva Mcclure MD Date: 08/20/16 Progress Note - Daily [facility] Completed: Saturday, AUGUST 20, 2016, 14:41 by Shiva Mcclure MD RM: 306 - 1D, SE C3BS VERONICA MURRELL 46y (: 1970) F Attending: Shiva Mcclure MD Service: Internal Medicine Reason for Admission: INTRACTABLE NAUSEA AND VOMITING Working DRG: Esophagitis, gastroent and misc digest disorders w/[place] [facility] status: Full Code [Ordered] Current diet: Isolation: None Documented Allergies: lisinopril SUBJECTIVE OBJECTIVE 24hr Labs 08/20 1130 Glucose POC 243 H 08/20 0740 Glucose POC 161 H 08/20 0447 Sodium Lvl 141 Potassium Lvl 4.2 Chloride Lvl 108 CO2 22 L AGAP 15.2 Glucose Lvl 153 H Creatinine Lvl 0.97 BUN 10 B/C Ratio 10 Total Protein 6.6 Albumin Lvl 3.4 L Globulin 3.2 A/G Ratio 1.1 Calcium Lvl 8.5 ALT 179 H AST 81 H Alk Phos 184 H Bili Total 0.6 eGFR 70 WBC 6.5 RBC 4.13 L Hgb 8.4 L Hct 27.7 L MCV 67.2 L MCH 20.3 L MCHC 30.3 L RDW 17.7 H Platelet 208 MPV 9.5 WBC 6.5 RBC 4.13 L Hgb 8.4 L Hct 27.7 L MCV 67.2 L MCH 20.3 L MCHC 30.3 L RDW 17.7 H Platelet 208 MPV 9.5 Segs 67.4 Monocytes 8.1 Lymphocytes 23.2 Eosinophils 0.7 Basophils 0.6 Segs-Bands # 4.4 Lymphocytes # 1.5 Monocytes # 0.5 Microcyte 3+ PT 13.9 INR 1.05 PTT 28.8 08/19 2129 Glucose POC 245 H 08/19 1725 Ferritin Lvl 6 Folate Lvl 11.3 Iron 17 L % Satur Fe 4 L TIBC 463 H UIBC 446 H Vitamin B12 Lvl 259 08/19 1628 Glucose POC 155 H 08/19 0632 Iron 20 L % Satur Fe 5 L TIBC 398 UIBC 378 H Hawk still necessary (Yes/No): Line still necessary (Yes/No): Vitals Tmp(F) Pulse BP RR SpO2 FIO2 08/20 10:50 ---- 50 119/78 1 6 98 --- 08/20 10:49 98.5 52 146/92 1 6 97 --- 08/20 08:59 ---- 78 ----- -- --- --- 08/20 07:37 98.7 52 174/95 1 6 98 --- 08/20 06:35 ---- 54 151/86 1 6 96 --- 24 Hr Tmax: 98.7F (37.06c) at 08/20 07:3 7 Vital Signs are the last 5 in the past 48 hours. Date Wt(kg) Wt(lb) Ht(cm) Ht(in) Method 08/17 (initial) 91.36 201.00 Estimated 08/17 167.64 66.00 Stated I&O Record In Out Bal 08/20 24hr Tot 0 0 0 08/19 24hr Tot 3498 0 3498 Medications (25) Active [...] 1,000 mL 1,000 mL 125 ml/hr ASSESSMENT and EXAM PLAN and TREATMENT DIAGNOSES and PROBLEMS [id number] Ready for Discharge (Yes/No)? TEACHING ATTESTATION 08/20/2016 [facility] Plan of Care No Data Provided for This Section Social History Social History Date Source Social History TypeResponse Alcohol Never Employment/School Status: Unemployed. Substance Abuse Use: None. Smoking Status Never smoker; Ready to change: No; Concerns about tobacco use in household: No; Exposure to Tobacco Smoke None; Cigarette Smoking Last 365 Days No; Reg Smoking Cessation Counseling No entered on: 12/11/18 12/06/2018 [facility] Social History TypeResponse Alcohol Never Smoking Status Never smoker; Ready to change: No; Concerns about tobacco use in household: No; Exposure to Tobacco Smoke None; Cigarette Smoking Last 365 Days No; Reg Smoking Cessation Counseling No entered on: 11/14/18 06/19/2016 [facility] Family History No Data Provided for This Section Advance Directives No Data Provided for This Section Functional Status No Data Provided for This Section
--- OUTSIDE RECORDS SUMMARY | 2019-09-06 11:34 | XMS REPORT | Summary of Care ---
Author Author [facility] ospital Organization [facility] Address Unknown Phone Unavailable Encounter FLORA Gates(STEPHEN) [id number] Date(s): 01/18/16 - 01/19/16 [facility] [address] [place] [address]- Discharge Diagnosis: Acute esophagitis Discharge Diagnosis: Nausea with vomiting Discharge Diagnosis: Acid reflux Discharge Disposition: Home or Self Care Attending Physician: Garrett Maldonado MD Vital Signs 1 2 3 Most recent to oldest [Reference Range]: 167.64 cm (01/18/16 11:28 PM) Height 97.9 DegF (01/19/16 7:00 AM) 99.0 DegF (01/19/16 3:47 AM) 99.2 DegF *HI* (01/18/16 11:28 PM) Temperature Oral [96.4-99.1 DegF] 173/88 mmHg *HI* (01/19/16 7:00 AM) 173/97 mmHg *HI* (01/19/16 5:49 AM) 180/96 mmHg *HI* (01/19/16 5:04 AM) Blood Pressure [90-140/60-90 mmHg] 20 BRMIN (01/19/16 7:00 AM) 20 BRMIN (01/19/16 3:47 AM) 18 BRMIN (01/18/16 11:28 PM) Respiratory Rate [14-20 BRMIN] 100 bpm (01/19/16 7:00 AM) 100 bpm (01/19/16 3:47 AM) 121 bpm *HI* (01/18/16 11:28 PM) Peripheral Pulse Rate [60-100 bpm] 100 kg (01/18/16 11:28 PM) Weight 35.58 m2 (01/18/16 11:28 PM) Body Mass Index Problem List Condition Effective Dates Status Health Status Informan t Nausea(Confirmed) Active Allergies, Adverse Reactions, Alerts Substance Reaction Severity Status lisinopril Active Medications GI cocktail 30 mL, Route: PO, Dosing Weight 100, kg, ONCE, STAT, Start date: 01/19/16 6:27:0 0 CDT, Stop date: 01/19/16 6:27:00 CDT Start Date: 01/19/16 Stop Date: 01/19/16 Status: Completed morphine Sulfate 4 mg, Route: IVP, ONCE, Dosing Weight 100, kg, Priority: STAT, Start date: 01/18 2:13:00 CDT, Stop date: 01/19/16 2:13:00 CDT Start Date: 01/19/16 Stop Date: 01/19/16 Status: Completed omeprazole 40 mg oral delayed release capsule 40 mg = 1 cap, PO, Daily, # 30 cap, 1 Refill(s) Start Date: 01/19/16 Status: Ordered ondansetron 4 mg, Route: IVP, ONCE, Dosing Weight 100, kg, Priority: STAT, Start date: 01/18 2:13:00 CDT, Stop date: 01/19/16 2:13:00 CDT Start Date: 01/19/16 Stop Date: 01/19/16 Status: Completed pantoprazole 80 mg, Route: IVP, ONCE, Dosing Weight 100, kg, For IV push reconstitute with 10 ml 0.9% sodium chloride and push over at least 3 minutes, Priority: STAT, Start date: 01/19/16 2:13:00 CDT, Stop date: 01/19/16 2:13:00 CDT Start Date: 01/19/16 Stop Date: 01/19/16 Status: Completed promethazine 25 mg oral tablet 25 mg = 1 tab, PO, Q8H, PRN Nausea/Vomiting, X 10 day, # 30 tab, 1 Refill(s) Start Date: 01/19/16 Stop Date: 02/08/16 Status: Ordered Saline Flush 0.9% 10 mL, Route: IVP, Drug Form: INJ, Dosing Weight 100, kg, PRN, PRN Line Flush, S tart date: 01/19/16 2:13:00 CDT, Duration: 30 day, Stop date: 02/18/16 1:12:[address] Notes: (Same as: BD Posiflush) Start Date: 01/19/16 Stop Date: 01/19/16 Status: Discontinued Sodium Chloride 0.9% (Bolus) IV 1,000 mL, 2,000 ml/hr, Infuse Over: 30 minutes, Route: IV, ONCE, Priority: STAT, Dosing Weight 100 kg, Start date: 01/19/16 2:13:00 CDT, Duration: 1 doses or ti mes, Stop date: 01/19/16 2:13:00 CDT Start Date: 01/19/16 Stop Date: 01/19/16 Status: Completed sodium chloride 0.9% 1000 ml INJ 1,000 mL 1,000 mL, Rate: 125 ml/hr, Infuse over: 8 hr, Route: IV, Dosing Weight 100 kg, T otal Volume: 1,000, Start date: 01/19/16 2:13:00 CDT, Duration: 30 day, Stop subhash e: 02/18/16 2:12:00 MEDIA CENTER ASSISTANT Start Date: 01/19/16 Stop Date: 01/19/16 Status: Discontinued sodium chloride 0.9% INJ 250 mL 250 mL, Rate: Nuclear Operations Specialist for use with blood product administration., Dosing Weight 100, kg, Route: IV, Total Volume: 250, Priority: Routine, Start Date: 01/19/16 2 :13:00 CDT, Duration: 1 day, Stop date: 01/20/16 2:12:00 CDT, Replace Every: 24 hr Start Date: 01/19/16 Stop Date: 01/19/16 Status: Discontinued Zofran 8 mg, Route: IV, ONCE, Dosing Weight 100, kg, Start date: 01/19/16 6:20:00 CDT, Stop date: 01/19/16 6:20:00 CDT Start Date: 01/19/16 Stop Date: 01/19/16 Status: Completed Results BLOOD BANK RESULTS Most recent to 1 oldest [Reference Range]: ABO/Rh A POS *Unknown* (01/19/16 2:55 AM) Antibody Scrn Negative (01/19/16 2:55 AM) ELECTROLYTES Most recent to 1 oldest [Reference Range]: Sodium Lvl [135-145 131 mEq/L mEq/L] *LOW* (01/19/16 2:55 AM) Potassium Lvl 4.1 mEq/L [3.5-5.1 mEq/L] (01/19/16 2:55 AM) Chloride Lvl [95-109 97 mEq/L mEq/L] (01/19/16 2:55 AM) CO2 [24-32 mEq/L] 26 mEq/L (01/19/16 2:55 AM) AGAP [10.0-20.0 12.1 mEq/L mEq/L] (01/19/16 2:55 AM) CHEM PANEL Most recent to 1 oldest [Reference Range]: Creatinine Lvl 1.40 mg/dL [0.50-1.40 mg/dL] (01/19/16 2:55 AM) eGFR 45 mL/min/1.73m2 1 *NA* (01/19/16 2:55 AM) BUN [7-22 mg/dL] 20 mg/dL (01/19/16 2:55 AM) B/C Ratio [6-25] 14 (01/19/16 2:55 AM) Glucose Lvl [70-99 291 mg/dL mg/dL] *HI* (01/19/16 2:55 AM) Total Protein 8.8 g/dL [6.4-8.4 g/dL] *HI* (01/19/16 2:55 AM) Albumin Lvl [3.5-5.0 4.4 g/dL g/dL] (01/19/16 2:55 AM) Globulin [2.7-4.2 4.4 g/dL g/dL] *HI* (01/19/16 2:55 AM) A/G Ratio [0.7-1.6] 1.0 (01/19/16 2:55 AM) Calcium Lvl 9.2 mg/dL [8.5-10.5 mg/dL] (01/19/16 2:55 AM) ALT [0-65 unit/L] 38 unit/L (01/19/16 2:55 AM) AST [0-37 unit/L] 18 unit/L (01/19/16 2:55 AM) Alk Phos [39-136 188 unit/L unit/L] *HI* (01/19/16 2:55 AM) Bili Total [0.2-1.3 0.6 mg/dL mg/dL] (01/19/16 2:55 AM) Amylase Lvl [25-115 106 unit/L unit/L] (01/19/16 2:55 AM) Lipase Lvl [73-393 82 unit/L unit/L] (01/19/16 2:55 AM) Lactic Acid Lvl 1.4 mMol/L [0.5-2.2 mMol/L] (01/19/16 2:55 AM) 1Result Comment: The eGFR is calculated [...] be mul tiplied by the estimated BMI. CARDIAC ENZYMES Most recent to 1 oldest [Reference Range]: Total CK [12-191 44 unit/L unit/L] (01/19/16 2:55 AM) CK MB [0.5-3.6 <0.5 ng/mL ng/mL] (01/19/16 2:55 AM) CK MB Index <1.1 [0.0-2.5] (01/19/16 2:55 AM) Troponin-I <0.02 ng/mL [0.00-0.40 ng/mL] (01/19/16 2:55 AM) ENDOCRINOLOGY Most recent to 1 oldest [Reference Range]: S Preg [Negative] Negative *NA* (01/19/16 2:55 AM) URINE AND STOOL Most recent to 1 oldest [Reference Range]: UA Turbidity [Clear] Clear (01/19/16 2:55 AM) UA Color [Yellow] Yellow *NA* (01/19/16 2:55 AM) UA pH [5.0-8.0] 5.0 (01/19/16 2:55 AM) UA Spec Grav 1.024 [<=1.030] (01/19/16 2:55 AM) UA Glucose [Negative 500 mg/dL mg/dL] *ABN* (01/19/16 2:55 AM) UA Blood [Negative] Negative (01/19/16 2:55 AM) UA Ketones [Negative 20 mg/dL mg/dL] *ABN* (01/19/16 2:55 AM) UA Protein [Negative 100 mg/dL mg/dL] *ABN* (01/19/16 2:55 AM) UA Urobilinogen <=1.0 mg/dL [0.1-1.0 mg/dL] *NA* (01/19/16 2:55 AM) UA Bili [Negative] Negative *NA* (01/19/16 2:55 AM) UA Leuk Est Negative [Negative] (01/19/16 2:55 AM) UA Nitrite Negative [Negative] (01/19/16 2:55 AM) UA WBC [0-5 /HPF] 3 /HPF (01/19/16 2:55 AM) UA RBC [0-2 /HPF] <1 /HPF (01/19/16 2:55 AM) UA Bacteria [None Occasional /HPF Seen /HPF] *NA* (01/19/16 2:55 AM) UA Sq Epi [Few /LPF] Occasional /LPF *NA* (01/19/16 2:55 AM) UA Mucus [None Seen Few /LPF /LPF] *NA* (01/19/16 2:55 AM) HEMATOLOGY Most recent to 1 oldest [Reference Range]: WBC [3.7-10.4 K/CMM] 7.3 K/CMM (01/19/16 2:55 AM) RBC [4.20-5.40 5.46 M/CMM M/CMM] *HI* (01/19/16 2:55 AM) Hgb [12.0-16.0 g/dL] 10.3 g/dL *LOW* (01/19/16 2:55 AM) Hct [36.0-48.0 %] 34.1 % *LOW* (01/19/16 2:55 AM) MCV [80.0-98.0 fL] 62.5 fL *LOW* (01/19/16 2:55 AM) MCH [27.0-31.0 pg] 18.9 pg *LOW* (01/19/16 2:55 AM) MCHC [32.0-36.0 30.3 g/dL g/dL] *LOW* (01/19/16 2:55 AM) RDW [11.5-14.5 %] 18.8 % *HI* (01/19/16 2:55 AM) Platelet [133-450 238 K/CMM K/CMM] (01/19/16 2:55 AM) MPV [7.4-10.4 fL] 9.4 fL (01/19/16 2:55 AM) Segs [45.0-75.0 %] 67.7 % (01/19/16 2:55 AM) Lymphocytes 23.9 % [20.0-40.0 %] (01/19/16 2:55 AM) Monocytes [2.0-12.0 7.5 % %] (01/19/16 2:55 AM) Eosinophils [0.0-4.0 0.4 % %] (01/19/16 2:55 AM) Basophils [0.0-1.0 0.5 % %] (01/19/16 2:55 AM) Segs-Bands # 5.0 K/CMM [1.5-8.1 K/CMM] (01/19/16 2:55 AM) Lymphocytes # 1.8 K/CMM [1.0-5.5 K/CMM] (01/19/16 2:55 AM) Monocytes # [0.0-0.8 0.6 K/CMM K/CMM] (01/19/16 2:55 AM) Hypochrom [None 1+ Seen] (01/19/16 2:55 AM) Microcyte [None 3+ Seen] *NA* (01/19/16 2:55 AM) Plt Morph Normal (01/19/16 2:55 AM) PT [12.0-14.7 13.5 seconds seconds] (01/19/16 2:55 AM) INR [0.85-1.17] 1.01 (01/19/16 2:55 AM) Immunizations No data available for this section Procedures No data available for this section Social History Social History Type Response Smoking Status Never smoker; Exposure to T obacco Smoke None; Cigarette Smoking Last 365 Days No; Reg Smoking Cessation Counseli ng No Assessment and Plan No data available for this section
--- OUTSIDE RECORDS SUMMARY | 2019-09-06 11:34 | XMS REPORT | Summary of Care ---
Author Author [facility] Organization [facility] Address Unknown Phone Unavailable Encounter HQ Yajaira(STEPHEN) [id number] Date(s): 06/18/16 - 06/20/16 [facility] [address] [place] [address]- [phone] Discharge Diagnosis: Severe uncontrolled hypertension Discharge Disposition: Home or Self Care Attending Physician: Shiva Mcclure MD Admitting Physician: Shiva Mcclure MD Vital Signs 1 2 3 Most recent to oldest [Reference Range]: 165.1 cm (06/19/16 4:38 AM) 165.1 cm (06/18/16 11:01 PM) Height 98.1 DegF (06/20/16 11:11 AM) 98.4 DegF (06/20/16 8:00 AM) 98.1 DegF (06/20/16 4:00 AM) Temperature Oral [96.4-99.1 DegF] 145/91 mmHg *HI* (06/20/16 11:11 AM) 112/71 mmHg (06/20/16 8:00 AM) 122/82 mmHg (06/20/16 4:00 AM) Blood Pressure [90-140/60-90 mmHg] 18 BRMIN (06/20/16 11:11 AM) 18 BRMIN (06/20/16 8:00 AM) 18 BRMIN (06/20/16 4:00 AM) Respiratory Rate [14-20 BRMIN] 86 bpm (06/20/16 11:11 AM) 93 bpm (06/20/16 8:00 AM) 82 bpm (06/20/16 4:00 AM) Peripheral Pulse Rate [60-100 bpm] 90.2 kg (06/19/16 4:38 AM) 81.818 kg (06/18/16 11:01 PM) Weight 33.09 m2 (06/19/16 4:38 AM) 30.02 m2 (06/18/16 11:01 PM) Body Mass Index Problem List Condition Effective Dates Status Health Status Informan t Anxiety(Confirmed) Active Diabetes(Confirmed) Active HLD Active (hyperlipidemia)(Con firmed) HTN Active (hypertension)(Confi rmed) Bipolar Active disorder(Confirmed) Nausea(Confirmed) Active Allergies, Adverse Reactions, Alerts Substance Reaction Severity Status lisinopril Active Medications amLODIPine 5 mg, 1 tab, Route: PO, Drug form: TAB, Bedtime, Dosing Weight 90.2, kg, Start d ate: 06/19/16 21:00:00 CDT, Duration: 30 day, Stop date: 07/18/16 21:00:00 CDT Notes: (Same as: Brice) Start Date: 06/19/16 Stop Date: 06/20/16 Status: Discontinued amLODIPine 5 mg oral tablet 5 mg = 1 tab, PO, Bedtime, 0 Refill(s) Start Date: 06/19/16 Status: Ordered benztropine 1 mg, 1 tab, Route: PO, Drug form: TAB, BID, Dosing Weight 90.2, kg, Start date: 06/19/16 9:00:00 CDT, Duration: 30 day, Stop date: 07/18/16 17:00:00 CDT Notes: (Same As: Mehnaz) Start Date: 06/19/16 Stop Date: 06/20/16 Status: Discontinued benztropine 2 mg oral tablet 1/2 tablet, PO, BID, 0 Refill(s) Start Date: 06/19/16 Status: Ordered Cardura 1 mg, 1 tab, Route: PO, Drug form: TAB, ONCE, Start date: 06/19/16 2:31:00 CDT, Stop date: 06/19/16 2:31:00 CDT Notes: (Same as: Jenn) Start Date: 06/19/16 Stop Date: 06/19/16 Status: Completed cloNIDine 0.1 mg oral tablet 0.1 mg, 1 tab, Route: PO, Drug form: TAB, Q6H, Dosing Weight 90.2, kg, PRN Hyper tension, Start date: 06/19/16 20:23:00 CDT, Duration: 30 day, Stop date: 7 20:22:00 CDT Notes: (Same As: Sabrinaapralan) Start Date: 06/19/16 Stop Date: 06/20/16 Status: Discontinued Effexor XR 75 mg oral capsule, extended release 75 mg = 1 cap, PO, Daily, # 30 cap, 0 Refill(s) Start Date: 06/20/16 Status: Ordered FLUoxetine Route: PO, Drug form: CAP, Daily, Dosing Weight 90.2, kg, Start date: 06/19/16 9 :00:00 CDT, Duration: 30 day, Stop date: 07/18/16 9:00:00 CDT Start Date: 06/19/16 Stop Date: 06/19/16 Status: Discontinued FLUoxetine 20 mg oral capsule 4, PO, Daily, 0 Refill(s) Start Date: 06/19/16 Stop Date: 06/19/16 Status: Deleted Heparin - one time bolus for DVT/PE 5,000 unit, Route: IVP, Drug form: INJ, ONCE, Dosing Weight 81.818, kg, Priority : STAT, Start date: 06/19/16 2:06:00 CDT, Stop date: 06/19/16 2:06:00 CDT Start Date: 06/19/16 Stop Date: 06/19/16 Status: Discontinued Heparin 40 unit/kg Bolus (Heparin Dosing Weight) Pharmacy To Manage, Route: IVP, PRN, Drug form: INJ, PRN, Heparin Protocol, Star t date: 06/19/16 2:06:00 CDT Stop date: 07/19/16 2:05:00 CDT, 30 day Start Date: 06/19/16 Stop Date: 06/19/16 Status: Discontinued Heparin 80 unit/kg Bolus (Heparin Dosing Weight) Pharmacy To Manage, Route: IVP, PRN, Drug form: INJ, PRN, Heparin Protocol, Star t date: 06/19/16 2:06:00 CDT Stop date: 07/19/16 2:05:00 CDT, 30 day Start Date: 06/19/16 Stop Date: 06/19/16 Status: Discontinued heparin additive 25,000 unit [18 unit/kg/hr] + Premix Diluent Dextrose 5% 500 mL 500 mL, Rate: 29.45 ml/hr, Infuse over: 17 hr, Route: IV, Dosing Weight 81.818 k g, Total Volume: 500 mL, Start date: 06/19/16 2:06:00 CDT, Duration: 30 day, Sto p date: 07/19/16 2:05:00 CDT Start Date: 06/19/16 Stop Date: 06/19/16 Status: Discontinued hydrALAZINE 20 mg, 1 mL, Route: IVP, Drug form: INJ, ONCE, Dosing Weight 81.818, kg, Priorit y: STAT, Start date: 06/18/16 23:38:00 CDT, Stop date: 06/18/16 23:38:00 CDT Notes: (Same as: Apresoline)Push over 5 minutes Start Date: 06/18/16 Stop Date: 06/19/16 Status: Completed hydrALAZINE 20 mg, 1 mL, Route: IVP, Drug form: INJ, ONCE, Dosing Weight 81.818, kg, Priorit y: STAT, Start date: 06/19/16 2:12:00 CDT, Stop date: 06/19/16 2:12:00 CDT Notes: (Same as: Apresoline)Push over 5 minutes Start Date: 06/19/16 Stop Date: 06/19/16 Status: Completed influenza virus vaccine, inactivated 0.5 mL, Route: IM, Drug Form: SUSP, Daily, Start date: 06/19/16 9:00:00 CDT, Dur ation: 1 doses or times, Stop date: 06/19/16 9:00:00 CDT Notes: (Same as: Fluzone Quadrivalent, Fluarix Quadrivalent)For 3 years of age a nd older (0.5 mL IM)Shake well before use Start Date: 06/19/16 Stop Date: 06/19/16 Status: Completed labetalol 20 mg, Route: IVP, Drug form: INJ, ONCE, Dosing Weight 81.818, kg, Priority: STA T, Start date: 06/19/16 1:54:00 CDT, Stop date: 06/19/16 1:54:00 CDT Start Date: 06/19/16 Stop Date: 06/19/16 Status: Discontinued labetalol 10 mg, 2 mL, Route: IV, Drug form: INJ, ONCE, Dosing Weight 81.818, kg, Start da te: 06/19/16 3:49:00 CDT, Stop date: 06/19/16 3:49:00 CDT Notes: (Same as: Normodyne, Trandate)Push over 2 minutes Give bolus over 2-3 mi nutes. Start Date: 06/19/16 Stop Date: 06/19/16 Status: Completed Latuda 80 mg, Route: PO, Daily, Dosing Weight 90.2, kg, Start date: 06/19/16 19:31:00 C DT, Duration: 30 day, Stop date: 07/19/16 9:00:00 CDT Start Date: 06/19/16 Stop Date: 06/19/16 Status: Deleted Latuda 80 mg oral tablet 80 mg = 1 tab, PO, Daily, 0 Refill(s) Start Date: 06/19/16 Status: Ordered latuda 80mg tab latuda 80mg tab, 1 tab, Drug form: MISC, Route: PO, Daily, 06/20/16 9:00:00 CDT, Duration: 30 day, Stop date: 07/19/16 9:00:00 CDT Start Date: 06/20/16 Stop Date: 06/20/16 Status: Discontinued LORazepam 1 mg, 0.5 mL, Route: IV, Drug form: INJ, ONCALL, Dosing Weight 90.2, kg, Start d ate: 06/19/16 11:00:00 CDT, Duration: 30 day, Stop date: 07/19/16 10:59:00 CDT Notes: (Same as: Ativan) Start Date: 06/19/16 Stop Date: 06/19/16 Status: Completed LORazepam 1 mg, Route: IVP, Drug form: INJ, ONCE, Dosing Weight 81.818, kg, Priority: STAT , Start date: 06/19/16 1:54:00 CDT, Stop date: 06/19/16 1:54:00 CDT Start Date: 06/19/16 Stop Date: 06/19/16 Status: Completed losartan 100 mg, 2 tab, Route: PO, Drug form: TAB, Daily, Dosing Weight 90.2, kg, Start d ate: 06/19/16 9:00:00 CDT, Duration: 30 day, Stop date: 07/18/16 9:00:00 CDT Notes: (Same as: Tyrel) Start Date: 06/19/16 Stop Date: 06/20/16 Status: Discontinued losartan 100 mg oral tablet 100 mg = 1 tab, PO, Daily, 0 Refill(s) Start Date: 06/19/16 Status: Ordered metFORMIN extended release 500 mg, PO, Daily, 0 Refill(s) Start Date: 06/19/16 Status: Ordered metFORMIN extended release 500 mg, 1 tab, Route: PO, Drug form: ERTAB, Daily, Dosing Weight 90.2, kg, Start date: 06/19/16 9:00:00 CDT, Duration: 30 day, Stop date: 07/18/16 9:00:00 CDT Notes: (Same as: Glucophage XR)"Do Not Crush" Start Date: 06/19/16 Stop Date: 06/20/16 Status: Discontinued omeprazole 40 mg, Route: PO, Drug form: DRC, Daily, Dosing Weight 90.2, kg, Start date: 9:00:00 CDT, Duration: 30 day, Stop date: 07/18/16 9:00:00 CDT Start Date: 06/19/16 Stop Date: 06/19/16 Status: Deleted pneumococcal 23-valent vaccine 0.5 mL, Route: IM, Drug Form: INJ, Daily, Start date: 06/19/16 9:00:00 CDT, Dura tion: 1 doses or times, Stop date: 06/19/16 9:00:00 CDT Notes: (Same as: Pneumovax 23) Refrigerate Start Date: 06/19/16 Stop Date: 06/19/16 Status: Completed prazosin 2 mg, Route: PO, ONCE, Dosing Weight 81.818, kg, Start date: 06/19/16 2:11:00 CD T, Stop date: 06/19/16 2:11:00 CDT Start Date: 06/19/16 Stop Date: 06/19/16 Status: Discontinued Protonix 40 mg, 1 tab, Route: PO, Drug form: ECTAB, Before Dinner, Start date: 06/19/16 1 6:30:00 CDT, Duration: 30 day, Stop date: 07/18/16 16:30:00 CDT Notes: Tablet should not be chewed or crushed.(Same as: Protonix) Start Date: 06/19/16 Stop Date: 06/20/16 Status: Discontinued Saline Flush 0.9% 10 mL, Route: IVP, Drug Form: INJ, Dosing Weight 81.818, kg, PRN, PRN Line Flush , Start date: 06/18/16 23:38:00 CDT, Duration: 30 day, Stop date: 07/18/16 23:37 :00 CDT Notes: (Same as: BD Posiflush) Start Date: 06/18/16 Stop Date: 06/20/16 Status: Discontinued Tylenol 650 mg, 2 tab, Route: PO, Drug form: TAB, Q6H, Dosing Weight 90.2, kg, PRN Pain Score 1-3, Start date: 06/19/16 17:32:00 CDT, Duration: 30 day, Stop date: 07/19 17:31:00 CDT Notes: Do not exceed 4 gm/day. (Same as: Tylenol) Start Date: 06/19/16 Stop Date: 06/20/16 Status: Discontinued venlafaxine 75 mg, 3 tab, Route: PO, Drug form: TAB, Daily, Dosing Weight 90.2, kg, Start da te: 06/20/16 9:00:00 CDT, Stop date: 07/19/16 9:00:00 CDT Notes: (Same As: Effexor) Start Date: 06/20/16 Stop Date: 06/20/16 Status: Discontinued venlafaxine 37.5 mg, 1 tab, Route: PO, Drug form: TAB, Daily, Dosing Weight 90.2, kg, Start date: 06/19/16 9:00:00 CDT, Duration: 30 day, Stop date: 07/18/16 9:00:00 CDT Notes: (Same As: Effexor) Start Date: 06/19/16 Stop Date: 06/19/16 Status: Discontinued venlafaxine 37.5 mg oral tablet, extended release 37.5 mg = 1 tab, PO, Daily, 0 Refill(s) Start Date: 06/19/16 Stop Date: 06/20/16 Status: Discontinued Zofran 4 mg, 2 mL, Route: IVP, Drug form: INJ, Q8H, Dosing Weight 90.2, kg, PRN as need ed for nausea/vomiting, Start date: 06/19/16 10:30:00 CDT, Duration: 30 day, Sto p date: 07/19/16 10:29:00 CDT Notes: (Same as: Zofran) MEDICATION WASTE Product Size: 4 mgProduct Was zaida: ___ mg Start Date: 06/19/16 Stop Date: 06/20/16 Status: Discontinued zolpidem 10 mg oral tablet 10 mg = 1 tab, PO, Bedtime, PRN as needed for sleep, 0 Refill(s) Start Date: 06/19/16 Status: Ordered Results ELECTROLYTES Most recent to 1 2 oldest [Reference Range]: Sodium Lvl [135-145 140 mEq/L mEq/L] (06/19/16 12:18 AM) Potassium Lvl 4.2 mEq/L [3.5-5.1 mEq/L] (06/19/16 12:18 AM) Chloride Lvl [95-109 105 mEq/L mEq/L] (06/19/16 12:18 AM) CO2 [24-32 mEq/L] 25 mEq/L (06/19/16 12:18 AM) AGAP [10.0-20.0 14.2 mEq/L mEq/L] (06/19/16 12:18 AM) CHEM PANEL Most recent to 1 2 oldest [Reference Range]: Creatinine Lvl 1.20 mg/dL [0.50-1.40 mg/dL] (06/19/16 12:18 AM) eGFR 54 mL/min/1.73m2 1 *NA* (06/19/16 12:18 AM) BUN [7-22 mg/dL] 21 mg/dL (06/19/16 12:18 AM) B/C Ratio [6-25] 18 (06/19/16 12:18 AM) Glucose Lvl [70-99 147 mg/dL mg/dL] *HI* (06/19/16 12:18 AM) Total Protein 7.7 g/dL [6.4-8.4 g/dL] (06/19/16 12:18 AM) Albumin Lvl [3.5-5.0 4.0 g/dL g/dL] (06/19/16 12:18 AM) Globulin [2.7-4.2 3.7 g/dL g/dL] (06/19/16 12:18 AM) A/G Ratio [0.7-1.6] 1.1 (06/19/16 12:18 AM) Calcium Lvl 8.6 mg/dL [8.5-10.5 mg/dL] (06/19/16 12:18 AM) ALT [0-65 unit/L] 20 unit/L (06/19/16 12:18 AM) AST [0-37 unit/L] 14 unit/L (06/19/16 12:18 AM) Alk Phos [39-136 137 unit/L unit/L] *HI* (06/19/16 12:18 AM) Bili Total [0.2-1.3 0.3 mg/dL mg/dL] (06/19/16 12:18 AM) Ammonia [<=45.0 15.0 uMol/L uMol/L] (06/19/16 12:56 AM) 1Result Comment: The eGFR is calculated [...] BMI. CARDIAC ENZYMES Most recent to 1 2 oldest [Reference Range]: Total CK [12-191 85 unit/L unit/L] (06/19/16 12:18 AM) CK MB [0.5-3.6 1.4 ng/mL ng/mL] (06/19/16 12:18 AM) CK MB Index 1.6 [0.0-2.5] (3/18/17 12:18 AM) Troponin-I <0.02 ng/mL [0.00-0.40 ng/mL] (06/19/16:18 AM) BNP [<=100 pg/mL] 9 pg/mL (06/19/16:18 AM) TOXICOLOGY Most recent to 1 2 oldest [Reference Range]: Acetaminoph Lvl <2 [10-20] (06/19/16 12:50 AM) Salicylate Lvl <1.7 mg/dL [0.0-30.0 mg/dL] (06/19/16 12:50 AM) Etoh (%) <.003 % *NA* (06/19/16 12:50 AM) Ethanol Lvl <3 mg/dL *NA* (06/19/16 12:50 AM) URINE AND STOOL Most recent to 1 2 oldest [Reference Range]: UA Turbidity [Clear] Clear (06/19/16 12:50 AM) UA Color Ltyellow *NA* (06/19/16 12:50 AM) UA pH [5.0-8.0] 5.0 (06/19/16 12:50 AM) UA Spec Grav 1.013 [<=1.030] (06/19/16 12:50 AM) UA Glucose [Negative Negative mg/dL mg/dL] *NA* (06/19/16 12:50 AM) UA Blood [Negative] Negative (06/19/16 12:50 AM) UA Ketones [Negative Negative mg/dL mg/dL] *NA* (06/19/16 12:50 AM) UA Protein [Negative Negative mg/dL mg/dL] (06/19/16 12:50 AM) UA Urobilinogen 2.0 mg/dL [0.1-1.0 mg/dL] *HI* (06/19/16 12:50 AM) UA Bili [Negative] Negative *NA* (06/19/16 12:50 AM) UA Leuk Est Negative [Negative] (06/19/16 12:50 AM) UA Nitrite Negative [Negative] (06/19/16 12:50 AM) UA WBC [0-5 /HPF] 1 /HPF (06/19/16 12:50 AM) UA RBC [0-2 /HPF] <1 /HPF (06/19/16 12:50 AM) UA Bacteria [None Occasional /HPF Seen /HPF] *NA* (06/19/16 12:50 AM) UA Sq Epi [Few /LPF] Few /LPF *NA* (06/19/16 12:50 AM) HEMATOLOGY Most recent to 1 2 oldest [Reference Range]: WBC [3.7-10.4 K/CMM] 7.3 K/CMM 8.4 K/CMM (06/19/16 7:45 AM) (06/19/16 12:18 AM) RBC [4.20-5.40 4.19 M/CMM 4.51 M/CMM M/CMM] *LOW* (06/19/16:18 AM) (06/19/16 7:45 AM) Hgb [12.0-16.0 g/dL] 8.4 g/dL 9.1 g/dL *LOW* *LOW* (06/19/16 7:45 AM) (06/19/16 12:18 AM) Hct [36.0-48.0 %] 27.4 % 29.8 % *LOW* *LOW* (06/19/16 7:45 AM) (06/19/16 12:18 AM) MCV [80.0-98.0 fL] 65.3 fL 66.1 fL *LOW* *LOW* (06/19/16 7:45 AM) (06/19/16 12:18 AM) MCH [27.0-31.0 pg] 20.1 pg 20.1 pg *LOW* *LOW* (06/19/16 7:45 AM) (06/19/16 12:18 AM) MCHC [32.0-36.0 30.7 g/dL 30.4 g/dL g/dL] *LOW* *LOW* (06/19/16 7:45 AM) (06/19/16 12:18 AM) RDW [11.5-14.5 %] 20.1 % 20.2 % *HI* *HI* (06/19/16 7:45 AM) (06/19/16 12:18 AM) Platelet [133-450 202 K/CMM 193 K/CMM K/CMM] (06/19/16 7:45 AM) (06/19/16 12:18 AM) MPV [7.4-10.4 fL] 9.1 fL 9.4 fL (06/19/16 7:45 AM) (06/19/16 12:18 AM) Segs [45.0-75.0 %] 68.7 % 72.8 % (06/19/16 7:45 AM) (06/19/16 12:18 AM) Lymphocytes 22.8 % 18.5 % [20.0-40.0 %] (06/19/16 7:45 AM) *LOW* (06/19/16 12:18 AM) Monocytes [2.0-12.0 7.0 % 7.6 % %] (06/19/16 7:45 AM) (06/19/16 12:18 AM) Eosinophils [0.0-4.0 0.6 % 0.8 % %] (06/19/16 7:45 AM) (06/19/16 12:18 AM) Basophils [0.0-1.0 0.9 % 0.3 % %] (06/19/16 7:45 AM) (06/19/16 12:18 AM) Segs-Bands # 5.0 K/CMM 6.1 K/CMM [1.5-8.1 K/CMM] (06/19/16 7:45 AM) (06/19/16 12:18 AM) Lymphocytes # 1.7 K/CMM 1.6 K/CMM [1.0-5.5 K/CMM] (06/19/16 7:45 AM) (06/19/16 12:18 AM) Monocytes # [0.0-0.8 0.5 K/CMM 0.6 K/CMM K/CMM] (06/19/16 7:45 AM) (06/19/16 12:18 AM) Eosinophils # 0.1 K/CMM [0.0-0.5 K/CMM] (06/19/16 12:18 AM) Basophils # [0.0-0.2 0.1 K/CMM K/CMM] (06/19/16 7:45 AM) Microcyte [None 3+ 3+ Seen] *NA* *NA* (06/19/16 7:45 AM) (06/19/16 12:18 AM) Immunizations Given and Recorded Vaccine Date Status Refusal Reason influenza virus vaccine, inactivated 06/19/16 G iven pneumococcal 23-valent vaccine 06/19/16 Given Procedures Procedure Date Related Diagnosis Body Site Cholecystectomy Tasha-en-y gastric bypass Social History Social History Type Response Alcohol Never Smoking Status Never smoker; Exposure to T obacco Smoke None; Cigarette Smoking Last 365 Days No; Reg Smoking Cessation Counseli ng No Assessment and Plan No data available for this section
--- OUTSIDE RECORDS SUMMARY | 2019-09-06 11:34 | XMS REPORT | Summary of Care ---
Author Author [facility] Organization [facility] Address Unknown Phone Unavailable Encounter FLORA Gates(STEPHEN) [id number] Date(s): 02/22/18 - 02/22/18 [facility] [address] [place] [address]- [phone] Encounter Diagnosis Poorly controlled blood pressure (Discharge Diagnosis) - 02/22/18 Acute hyperglycemia (Discharge Diagnosis) - 02/22/18 Nausea & vomiting (Discharge Diagnosis) - 02/22/18 Type 2 diabetes mellitus with hyperglycemia (Final) - 02/28/18 Essential (primary) hypertension (Final) - Nausea with vomiting, unspecified (Final) - Bariatric surgery status (Final) - 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) - 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 (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) - Other predatory animal exterminator (current) drug therapy (Final) - Discharge Disposition: Home or Self Care Attending Physician: Jb Gavin DO Vital Signs 1 2 3 Most recent to oldest [Reference Range]: 167.64 cm (02/22/18 1:44 PM) Height 98.0 DegF (02/22/18 7:42 PM) 98.8 DegF (02/22/18 6:18 PM) 98.7 DegF (02/22/18 1:44 PM) Temperature Oral [96.4-99.1 DegF] 126/82 mmHg (02/22/18 7:42 PM) 161/95 mmHg *HI* (02/22/18 7:06 PM) 158/108 mmHg *HI* (02/22/18 6:43 PM) Blood Pressure [90-140/60-90 mmHg] 18 BRMIN (02/22/18 7:42 PM) 18 BRMIN (02/22/18 7:06 PM) 16 BRMIN (02/22/18 6:43 PM) Respiratory Rate [14-20 BRMIN] 88 bpm (02/22/18 7:42 PM) 83 bpm (02/22/18 7:06 PM) 80 bpm (02/22/18 6:43 PM) Peripheral Pulse Rate [60-100 bpm] 81.818 kg (02/22/18 1:44 PM) Weight 29.11 m2 (02/22/18 1:44 PM) Body Mass Index Problem List Condition Effective Dates Status Health Status Informan t Anxiety(Confirmed) Active Diabetes(Confirmed) Active HLD Active (hyperlipidemia)(Con firmed) HTN Active (hypertension)(Confi rmed) Bipolar Active disorder(Confirmed) Nausea(Confirmed) Active Allergies, Adverse Reactions, Alerts Substance Reaction Severity Status lisinopril Active Medications atenolol 25 mg, 1 tab, Route: PO, Drug form: TAB, ONCE, Dosing Weight 81.818, kg, Priorit y: STAT, Start date: 02/22/18 18:32:00 CREDIT ASSISTANT, Stop date: 02/22/18 18:32:00 CREDIT ASSISTANT Notes: (Same As:Tenormin) Start Date: 02/22/18 Stop Date: 02/22/18 Status: Completed cloNIDine 0.2 mg, 2 tab, Route: PO, Drug form: TAB, ONCE, Dosing Weight 81.818, kg, Priori ty: STAT, Start date: 02/22/18 18:32:00 CREDIT ASSISTANT, Stop date: 02/22/18 18:32:00 CREDIT ASSISTANT Notes: (Same As: Catapres) Start Date: 02/22/18 Stop Date: 02/22/18 Status: Completed cloNIDine 0.1 mg oral tablet 0.1 mg = 1 tab, PO, BID, # 60 tab, 3 Refill(s) Start Date: 02/22/18 Stop Date: 06/22/18 Status: Ordered cloNIDine 0.1 mg oral tablet 0.1 mg = 1 tab, PO, BID, # 90 tab, 3 Refill(s), [id number] Start Date: 02/22/18 Stop Date: 02/22/18 Status: Discontinued labetalol 10 mg, 2 mL, Route: IV, Drug form: INJ, ONCE, Dosing Weight 81.818, kg, Start da te: 02/22/18 17:05:00 CREDIT ASSISTANT, Stop date: 02/22/18 17:05:00 CREDIT ASSISTANT Start Date: 02/22/18 Stop Date: 02/22/18 Status: Completed metFORMIN 500 mg oral tablet 500 mg = 1 tab, PO, BID-Meals, # 60 tab, 0 Refill(s) Start Date: 02/22/18 Stop Date: 03/24/18 Status: Ordered Sodium Chloride 0.9% (Bolus) IV 1,000 mL, 1000 ml/hr, Infuse Over: 1 hr, Route: IV, 1,000, Drug form: INJ, ONCE, Priority: STAT, Dosing Weight 81.818 kg, Start date: 02/22/18 18:31:00 CREDIT ASSISTANT, Stop date: 02/22/18 18:31:00 CREDIT ASSISTANT Start Date: 02/22/18 Stop Date: 02/22/18 Status: Completed Sodium Chloride 0.9% (Bolus) IV 1,000 mL, 1000 ml/hr, Infuse Over: 1 hr, Route: IV, 1,000, Drug form: INJ, ONCE, Priority: STAT, Dosing Weight 81.818 kg, Start date: 02/22/18 18:33:00 CREDIT ASSISTANT, Stop date: 02/22/18 18:33:00 CREDIT ASSISTANT Start Date: 02/22/18 Stop Date: 02/22/18 Status: Completed Sodium Chloride 0.9% (Bolus) IV 1,000 mL, 1000 ml/hr, Infuse Over: 1 hr, Route: IV, 1,000, Drug form: INJ, ONCE, Priority: STAT, Dosing Weight 81.818 kg, Start date: 02/22/18 16:59:00 CREDIT ASSISTANT, Stop date: 02/22/18 16:59:00 CREDIT ASSISTANT Start Date: 02/22/18 Stop Date: 02/22/18 Status: Completed Sodium Chloride 0.9% IV 984.8 mL + M.V.I.-12 10 mL Daily + folic acid IV 1 mg Da malvin + thiamine IV 5 984.8 mL, Rate: 100 ml/hr, Infuse over: 10 hr, Route: IV, Dosing Weight 81.818 k g, Total Volume: 1,000, Start date: 02/22/18 17:02:00 CREDIT ASSISTANT, Duration: 1 doses or times, Stop date: 02/23/18 3:01:00 CREDIT ASSISTANT, 1.97, m2 Start Date: 02/22/18 Stop Date: 02/22/18 Status: Completed Sodium Chloride 0.9% IV 984.8 mL + M.V.I.-12 10 mL Daily + folic acid IV 1 mg Da malvin + thiamine IV 5 984.8 mL, Rate: 100 ml/hr, Infuse over: 10 hr, Route: IV, Dosing Weight 91.818 k g, Total Volume: 1,000, Start date: 02/22/18 13:45:00 CREDIT ASSISTANT, Duration: 1 doses or times, Stop date: 02/22/18 23:44:00 CREDIT ASSISTANT, 2.09, m2 Notes: PROTECT FROM LIGHTREFRIGERATE Start Date: 02/22/18 Stop Date: 02/22/18 Status: Discontinued Zofran 4 mg, 2 mL, Route: IVP, Drug form: INJ, ONCE, Dosing Weight 81.818, kg, Priority : STAT, Start date: 02/22/18 16:58:00 CREDIT ASSISTANT, Stop date: 02/22/18 16:58:00 CREDIT ASSISTANT Notes: (Same as: Zofran) MEDICATION WASTE Product Size: 4 mgProduct Was zaida: ___ mg Start Date: 02/22/18 Stop Date: 02/22/18 Status: Completed Zofran 4 mg oral tablet 4 mg = 1 tab, PO, BID, # 10 tab, 0 Refill(s) Start Date: 02/22/18 Stop Date: 02/27/18 Status: Ordered Results Most recent to 1 oldest [Reference Range]: Neutrophils # 7.1 K/CMM [1.5-8.1 K/CMM] (02/22/18 2:21 PM) Lymphocytes # 1.4 K/CMM [1.0-5.5 K/CMM] (02/22/18 2:21 PM) Monocytes # [0.0-0.8 0.5 K/CMM K/CMM] (02/22/18 2:21 PM) Vitamin B1 107.0 nMol/L 1 [66.5-200.0 nMol/L] *NA* (02/22/18 2:21 PM) BNP [<=100 pg/mL] 65 pg/mL (02/22/18 2:21 PM) Plt Morph See Note 2 (02/22/18 2: PM) eGFR 48 mL/min/1.73m2 3 *NA* (02/22/18 PM) A/G Ratio [0.7-1.6] 0.8 (02/22/18: PM) Albumin Lvl [3.5-5.0 3.2 g/dL g/dL] *LOW* (02/22/18: PM) Alk Phos [39-136 116 unit/L unit/L] (02/22/18 PM) ALT [0-65 unit/L] 47 unit/L (02/22/18 PM) AGAP [10.0-20.0 17.4 mEq/L mEq/L] (02/22/18 PM) AST [0-37 unit/L] 25 unit/L (02/22/18 PM) B/C Ratio [6-25] 20 (02/22/18 PM) Basophils [0.0-1.0 0.3 % %] (02/22/18 PM) BUN [7-22 mg/dL] 27 mg/dL *HI* (02/22/18 PM) Calcium Lvl 9.0 mg/dL [8.5-10.5 mg/dL] (02/22/18 PM) Chloride Lvl [95-109 101 mEq/L mEq/L] (02/22/18 PM) CO2 [24-32 mEq/L] 18 mEq/L *LOW* (02/22/18 PM) Creatinine Lvl 1.32 mg/dL [0.50-1.40 mg/dL] (02/22/18: PM) Eosinophils [0.0-4.0 0.2 % %] (02/22/18 PM) Globulin [2.7-4.2 4.2 g/dL g/dL] (02/22/18: PM) Glucose Lvl [70-99 379 mg/dL mg/dL] *HI* (02/22/18: PM) Hct [36.0-48.0 %] 38.7 % (02/22/18 2: PM) Hgb [12.0-16.0 g/dL] 13.2 g/dL (02/22/18 PM) Potassium Lvl 4.4 mEq/L [3.5-5.1 mEq/L] (02/22/18 2:21 PM) Lipase Lvl [73-393 359 unit/L unit/L] (02/22/18 PM) Lymphocytes 15.0 % [20.0-40.0 %] *LOW* (02/22/18 PM) MCH [27.0-31.0 pg] 30.8 pg (02/22/18 PM) MCHC [32.0-36.0 34.1 g/dL g/dL] (02/22/18 PM) MCV [80.0-98.0 fL] 90.4 fL (02/22/18: PM) Monocytes [2.0-12.0 5.9 % %] (02/22/18: PM) MPV [7.4-10.4 fL] 9.3 fL (02/22/18: PM) Sodium Lvl [135-145 132 mEq/L mEq/L] *LOW* (02/22/18: PM) Platelet [133-450 149 K/CMM K/CMM] (02/22/18: PM) Segs [45.0-75.0 %] 78.6 % *HI* (02/22/18 PM) Total Protein 7.4 g/dL [6.4-8.4 g/dL] (02/22/18: PM) RBC [4.20-5.40 4.27 M/CMM M/CMM] (02/22/18: PM) RBC Morph Normal (02/22/18 PM) RDW [11.5-14.5 %] 16.8 % *HI* (02/22/18: PM) Bili Total [0.2-1.3 0.5 mg/dL mg/dL] (02/22/18 PM) Troponin-I <0.02 ng/mL [0.00-0.40 ng/mL] (02/22/18 2:21 PM) UA Bili [Negative] Negative *NA* (02/22/18 3:31 PM) UA Blood [Negative] Negative (02/22/18 3:31 PM) UA Color Ltyellow *NA* (02/22/18 3:31 PM) UA Glucose [Negative 500 mg/dL mg/dL] *ABN* (02/22/18 3:31 PM) UA Ketones Negative [Negative] *NA* (02/22/18 3:31 PM) UA Leuk Est Negative [Negative] (02/22/18 3:31 PM) UA Nitrite Negative [Negative] (02/22/18 3:31 PM) UA pH [5.0-8.0] 5.0 (02/22/18 3:31 PM) UA Protein [Negative 100 mg/dL mg/dL] *ABN* (02/22/18 3:31 PM) UA RBC [0-2 /HPF] 1 /HPF (02/22/18 3:31 PM) UA Spec Grav 1.026 [<=1.030] (02/22/18 3:31 PM) UA Sq Epi [Few /LPF] Occasional /LPF *NA* (02/22/18 3:31 PM) UA Turbidity [Clear] Clear (02/22/18 3:31 PM) UA Urobilinogen <=1.0 mg/dL [0.1-1.0 mg/dL] *NA* (02/22/18 3:31 PM) UA WBC [0-5 /HPF] 1 /HPF (02/22/18 3:31 PM) WBC [3.7-10.4 K/CMM] 9.0 K/CMM (02/22/18 2:21 PM) 1Result Comment: This test was developed and its performance characteristics determined by [employer]. It has not been cleared or approved by the Food and Drug Administration. Performed At: [address] [id number] Bryan Lunsford MD Ph:[phone] 2Result Comment: Due to occassional clumps, the actual count may be slightly higher. 02/22/2018 19:19 iko 3Result Comment: The eGFR is calculated using [...] be mul tiplied by the estimated BMI. Immunizations Given and Recorded Vaccine Date Status Refusal Reason pneumococcal 23-valent vaccine 06/19/16 Given influenza virus vaccine, inactivated 06/19/16 G iven Procedures Procedure Date Related Diagnosis Body Site Status Cholecystectomy Completed Hernia repair Completed Tasha-en-y gastric bypass Completed Social History Social History Type Response Alcohol Never Smoking Status Never smoker; Ready to dunaway ge: No; Concerns about tobacco use in household: No; Exposure to Tobacco Smoke None; Cig arette Smoking Last 365 Days No; Reg Smoking Cessation Counseling No entered on: 02/22/18 Assessment and Plan No data available for this section
--- OUTSIDE RECORDS SUMMARY | 2019-09-06 11:34 | XMS REPORT | Summary of Care ---
Author Author [facility] Organization [facility] Address Unknown Phone Unavailable Encounter FLORA Gates(STEPHEN) [id number] Date(s): 06/07/16 - 06/07/16 [facility] [address] [place] [address]- [phone] Discharge Diagnosis: Flank pain Discharge Disposition: Home or Self Care Attending Physician: Juan Pablo Graff MD Vital Signs Most recent to 1 2 oldest [Reference Range]: Height 167.64 cm (06/07/16 12:41 PM) Temperature Oral 97.7 DegF 98 DegF [96.4-99.1 DegF] (06/07/16 3:34 PM) (06/07/16 12:41 PM) Blood Pressure 137/79 mmHg 104/71 mmHg [90-140/60-90 mmHg] (06/07/16 3:34 PM) (06/07/16 12:41 PM) Respiratory Rate 18 BRMIN 18 BRMIN [14-20 BRMIN] (06/07/16 3:34 PM) (06/07/16 12:41 PM) Peripheral Pulse 56 bpm 60 bpm Rate [60-100 bpm] *LOW* (06/07/16 12:41 PM) (06/07/16 3:34 PM) Weight 95.455 kg (06/07/16 12:41 PM) Body Mass Index 33.97 m2 (06/07/16 12:41 PM) Problem List Condition Effective Dates Status Health Status Informan t Diabetes(Confirmed) Active HLD Active (hyperlipidemia)(Con firmed) HTN Active (hypertension)(Confi rmed) Nausea(Confirmed) Active Allergies, Adverse Reactions, Alerts Substance Reaction Severity Status lisinopril Active Medications morphine Sulfate 4 mg, 1 mL, Route: IVP, Drug form: SOLN, ONCE, Dosing Weight 95.455, kg, Priorit y: STAT, Start date: 06/07/16 14:03:00 APPLIED PSYCHOLOGY CHAIR, Stop date: 06/07/16 14:03:00 APPLIED PSYCHOLOGY CHAIR Notes: (Same as:MORPhine Sulfate) Start Date: 06/07/16 Stop Date: 06/07/16 Status: Completed Ultram 50 mg oral tablet 50 mg = 1 tab, PO, Q4H, PRN pain, X 3 day, # 20 tab, 0 Refill(s) Start Date: 06/07/16 Stop Date: 06/10/16 Status: Ordered Zofran 4 mg, 2 mL, Route: IVP, Drug form: INJ, ONCE, Dosing Weight 95.455, kg, Priority : STAT, Start date: 06/07/16 14:03:00 APPLIED PSYCHOLOGY CHAIR, Stop date: 06/07/16 14:03:00 APPLIED PSYCHOLOGY CHAIR Notes: (Same as: Zofran) MEDICATION WASTE Product Size: 4 mgProduct Was zaida: ___ mg Start Date: 06/07/16 Stop Date: 06/07/16 Status: Completed Zofran 4 mg oral tablet 4 mg = 1 tab, PO, BID, X 5 day, # 10 tab, 0 Refill(s) Start Date: 06/07/16 Stop Date: 06/12/16 Status: Ordered Results ELECTROLYTES Most recent to 1 oldest [Reference Range]: Sodium Lvl [135-145 137 mEq/L mEq/L] (06/07/16 12:52 PM) Potassium Lvl 4.1 mEq/L [3.5-5.1 mEq/L] (06/07/16 12:52 PM) Chloride Lvl [95-109 105 mEq/L mEq/L] (06/07/16 12:52 PM) CO2 [24-32 mEq/L] 22 mEq/L *LOW* (06/07/16 12:52 PM) AGAP [10.0-20.0 14.1 mEq/L mEq/L] (06/07/16 12:52 PM) CHEM PANEL Most recent to 1 oldest [Reference Range]: Creatinine Lvl 1.20 mg/dL [0.50-1.40 mg/dL] (06/07/16 12:52 PM) eGFR 54 mL/min/1.73m2 1 *NA* (06/07/16 12:52 PM) BUN [7-22 mg/dL] 21 mg/dL (06/07/16 12:52 PM) Glucose Lvl [70-99 313 mg/dL mg/dL] *HI* (06/07/16 12:52 PM) Calcium Lvl 8.3 mg/dL [8.5-10.5 mg/dL] *LOW* (06/07/16 12:52 PM) 1Result Comment: The eGFR is calculated [...] oldest [Reference Range]: U Preg [Negative] Negative (06/07/16 12:52 PM) URINE AND STOOL Most recent to 1 oldest [Reference Range]: UA Turbidity [Clear] Clear (06/07/16 12:52 PM) UA Color [Yellow] Yellow *NA* (06/07/16 12:52 PM) UA pH [5.0-8.0] 6.0 (06/07/16 12:52 PM) UA Spec Grav 1.018 [<=1.030] (06/07/16 12:52 PM) UA Glucose [Negative 500 mg/dL mg/dL] *ABN* (06/07/16 12:52 PM) UA Blood [Negative] Negative (06/07/16 12:52 PM) UA Ketones [Negative Negative mg/dL mg/dL] *NA* (06/07/16 12:52 PM) UA Protein [Negative 30 mg/dL mg/dL] *ABN* (06/07/16 12:52 PM) UA Urobilinogen 2.0 mg/dL [0.1-1.0 mg/dL] *HI* (06/07/16 12:52 PM) UA Bili [Negative] Negative *NA* (06/07/16 12:52 PM) UA Leuk Est Negative [Negative] (06/07/16 12:52 PM) UA Nitrite Negative [Negative] (06/07/16 12:52 PM) UA WBC [0-5 /HPF] 2 /HPF (06/07/16 12:52 PM) UA RBC [0-2 /HPF] 1 /HPF (06/07/16 12:52 PM) UA Sq Epi [Few /LPF] Occasional /LPF *NA* (06/07/16 12:52 PM) HEMATOLOGY Most recent to 1 oldest [Reference Range]: WBC [3.7-10.4 K/CMM] 6.3 K/CMM (06/07/16 12:52 PM) RBC [4.20-5.40 3.82 M/CMM M/CMM] *LOW* (06/07/16 12:52 PM) Hgb [12.0-16.0 g/dL] 7.7 g/dL *LOW* (06/07/16 12:52 PM) Hct [36.0-48.0 %] 25.1 % *LOW* (06/07/16 12:52 PM) MCV [80.0-98.0 fL] 65.7 fL *LOW* (06/07/16 12:52 PM) MCH [27.0-31.0 pg] 20.1 pg *LOW* (06/07/16 12:52 PM) MCHC [32.0-36.0 30.6 g/dL g/dL] *LOW* (06/07/16 12:52 PM) RDW [11.5-14.5 %] 19.8 % *HI* (06/07/16 12:52 PM) Platelet [133-450 190 K/CMM K/CMM] (06/07/16 12:52 PM) MPV [7.4-10.4 fL] 9.4 fL (06/07/16 12:52 PM) Segs [45.0-75.0 %] 68.2 % (06/07/16 12:52 PM) Lymphocytes 24.6 % [20.0-40.0 %] (06/07/16 12:52 PM) Monocytes [2.0-12.0 6.1 % %] (06/07/16 12:52 PM) Eosinophils [0.0-4.0 0.5 % %] (06/07/16 12:52 PM) Segs-Bands # 4.0 K/CMM [1.5-8.1 K/CMM] (06/07/16 12:52 PM) Lymphocytes # 1.4 K/CMM [1.0-5.5 K/CMM] (06/07/16 12:52 PM) Monocytes # [0.0-0.8 0.4 K/CMM K/CMM] (06/07/16 12:52 PM) Hypochrom [None 1+ Seen] (06/07/16 12:52 PM) Microcyte [None 3+ Seen] *NA* (06/07/16 12:52 PM) Plt Morph Normal (06/07/16 12:52 PM) Immunizations No data available for this section Procedures Procedure Date Related Diagnosis Body Site Cholecystectomy Tasha-en-y gastric bypass Social History Social History Type Response Smoking Status Never smoker; Exposure to T obacco Smoke None; Cigarette Smoking Last 365 Days No; Reg Smoking Cessation Counseli ng No Assessment and Plan No data available for this section
--- OUTSIDE RECORDS SUMMARY | 2019-09-06 11:34 | XMS REPORT | Summary of Care ---
Author Organization Unknown Address Unknown Phone Unavailable Encounter FLORA Gates(STEPHEN) [id number] Date(s): 09/08/14 - 09/08/14 [facility] [address] [place] [address]- Discharge Diagnosis: Right-sided chest wall pain Discharge Disposition: Home Physician Attending: Juan Pablo Graff MD Vital Signs Most recent to 1 2 oldest [Reference Range]: Height 167.64 cm (09/08/14 4:18 PM) Temperature Oral 97.9 DegF 98.6 DegF [96.4-99.1 DegF] (09/08/14 7:08 PM) (09/08/14 4:18 PM) Blood Pressure 123/60 mmHg 120/76 mmHg [90-140/60-90 mmHg] (09/08/14 7:08 PM) (09/08/14 4:18 PM) Respiratory Rate 18 BRMIN 18 BRMIN [14-20 BRMIN] (09/08/14 7:08 PM) (09/08/14 4:18 PM) Peripheral Pulse 68 bpm 85 bpm Rate [60-100 bpm] (09/08/14 7:08 PM) (09/08/14 4:18 PM) Weight 109.091 kg (09/08/14 4:18 PM) Body Mass Index 38.82 m2 (09/08/14 4:18 PM) Problem List Condition Effective Dates Status Health Status Informan t Nausea(Confirmed) Active Allergies, Adverse Reactions, Alerts Substance Reaction Severity Status lisinopril Active Medications ketOROLAC 15 mg, 0.5 mL, Route: IVP, Drug form: INJ, ONCE, Dosing Weight 109.091, kg, Prio rity: STAT, Start date: 09/08/14 17:59:00, Stop date: 09/08/14 17:59:00 Notes: (Same as:Toradol) IV bolus must be given >15 seconds. Give IM administration slowly and deeply into the muscle.Not for use > 4 days MEDICATION WASTE Product Size: 30 mgProduct Wasted: _15__ mg Start Date: 09/08/14 Stop Date: 09/08/14 Status: Completed ketOROLAC 10 mg oral tablet 10 mg = 1 tab, PO, Q6H, X 5 day, # 20 tab, 0 Refill(s) Start Date: 09/08/14 Stop Date: 09/13/14 Status: Ordered morphine Sulfate 4 mg, Route: IVP, Drug form: INJ, ONCE, Dosing Weight 109.091, kg, Priority: STA Key, Start date: 09/08/14 16:35:00, Stop date: 09/08/14 16:35:00 Start Date: 09/08/14 Stop Date: 09/08/14 Status: Completed Saline Flush 0.9% 10 mL, Route: IVP, Drug Form: INJ, Dosing Weight 109.091, kg, PRN, PRN Line Flus h, Start date: 09/08/14 16:35:00, Duration: 30 day, Stop date: 10/08/14 16:34:00 Notes: (Same as: BD Posiflush) Start Date: 09/08/14 Stop Date: 09/08/14 Status: Discontinued Zofran 4 mg, Route: IVP, Drug form: INJ, ONCE, Dosing Weight 109.091, kg, Priority: STA T, Start date: 09/08/14 16:35:00, Stop date: 09/08/14 16:35:00 Start Date: 09/08/14 Stop Date: 09/08/14 Status: Completed Results ELECTROLYTES Most recent to 1 oldest [Reference Range]: Sodium Lvl [135-145 139 mEq/L mEq/L] (09/08/14 5:03 PM) Potassium Lvl 4.1 mEq/L [3.5-5.1 mEq/L] (09/08/14 5:03 PM) Chloride Lvl [95-109 106 mEq/L mEq/L] (09/08/14 5:03 PM) CO2 [24-32 mEq/L] 25 mEq/L (09/08/14 5:03 PM) AGAP [10.0-20.0 12.1 mEq/L mEq/L] (09/08/14 5:03 PM) CHEM PANEL Most recent to 1 oldest [Reference Range]: Creatinine Lvl 1.3 mg/dL [0.5-1.4 mg/dL] (09/08/14 5:03 PM) eGFR 50 mL/min/1.73m2 1 *NA* (09/08/14:03 PM) BUN [7-22 mg/dL] 22 mg/dL (09/08/14 5:03 PM) B/C Ratio [6-25] 17 (09/08/14 5:03 PM) Glucose Lvl [70-99 158 mg/dL 2 mg/dL] *HI* (09/08/14:03 PM) Total Protein 7.3 g/dL [6.4-8.4 g/dL] (09/08/14 5:03 PM) Albumin Lvl [3.5-5.0 3.6 g/dL g/dL] (09/08/14 5:03 PM) Globulin [2.0-4.0 3.7 g/dL g/dL] (09/08/14 5:03 PM) A/G Ratio [0.7-1.6] 1.0 (09/08/14:03 PM) Calcium Lvl 8.0 mg/dL [8.5-10.5 mg/dL] *LOW* (09/08/14 5:03 PM) Phosphorus [2.5-4.5 2.7 mg/dL mg/dL] (09/08/14 5:03 PM) Magnesium Lvl 2.2 mg/dL [1.8-2.4 mg/dL] (09/08/14 5:03 PM) ALT [0-65 unit/L] 42 unit/L (09/08/14 5:03 PM) AST [0-37 unit/L] 19 unit/L (09/08/14 5:03 PM) Alk Phos [39-136 213 unit/L unit/L] *HI* (09/08/14 5:03 PM) Bili Total [0.2-1.3 0.2 mg/dL mg/dL] (09/08/14 5:03 PM) Lipase Lvl [73-393 87 unit/L unit/L] (09/08/14 5:03 PM) 1Result Comment: The eGFR is calculated [...] be mul tiplied by the estimated BMI. 2Interpretive Data: Adult reference range values reflect the clinical guidelines of the [employer]. URINE CHEM Most recent to 1 oldest [Reference Range]: U Preg [Negative] Negative (09/08/14 5:50 PM) URINE AND STOOL Most recent to 1 oldest [Reference Range]: UA Turbidity [Clear] Clear (09/08/14 5:50 PM) UA Color [Yellow] Yellow *NA* (09/08/14 5:50 PM) UA pH [5.0-8.0] 5.0 (09/08/14 5:50 PM) UA Spec Grav 1.020 [<=1.030] (09/08/14 5:50 PM) UA Glucose [Negative 150 mg/dL mg/dL] *ABN* (09/08/14 5:50 PM) UA Blood [Negative] Negative (09/08/14 5:50 PM) UA Ketones [Negative Negative mg/dL mg/dL] *NA* (09/08/14 5:50 PM) UA Protein [Negative Negative mg/dL mg/dL] (09/08/14 5:50 PM) UA Urobilinogen <=1.0 mg/dL [0.1-1.0 mg/dL] *NA* (09/08/14 5:50 PM) UA Bili [Negative] Negative *NA* (09/08/14 5:50 PM) UA Leuk Est Negative [Negative] (09/08/14 5:50 PM) UA Nitrite Negative [Negative] (09/08/14 5:50 PM) UA WBC [0-5 /HPF] 1 /HPF (09/08/14 5:50 PM) UA RBC [0-2 /HPF] 3 /HPF *HI* (09/08/14 5:50 PM) UA Sq Epi [Few /LPF] Occasional /LPF *NA* (09/08/14 5:50 PM) HEMATOLOGY Most recent to 1 oldest [Reference Range]: WBC [3.7-10.4 K/CMM] 5.4 K/CMM (09/08/14 5:03 PM) RBC [4.20-5.40 3.83 M/CMM M/CMM] *LOW* (09/08/14 5:03 PM) Hgb [12.0-16.0 g/dL] 9.2 g/dL *LOW* (09/08/14 5:03 PM) Hct [36.0-48.0 %] 28.2 % *LOW* (09/08/14 5:03 PM) MCV [80.0-98.0 fL] 73.7 fL *LOW* (09/08/14 5:03 PM) MCH [27.0-31.0 pg] 23.9 pg *LOW* (09/08/14 5:03 PM) MCHC [32.0-36.0 32.5 g/dL g/dL] (09/08/14 5:03 PM) RDW [11.5-14.5 %] 17.2 % *HI* (09/08/14 5:03 PM) Platelet [133-450 144 K/CMM K/CMM] (09/08/14 5:03 PM) MPV [7.4-10.4 fL] 9.1 fL (09/08/14 5:03 PM) Segs [45.0-75.0 %] 63.7 % (09/08/14 5:03 PM) Lymphocytes 26.3 % [20.0-40.0 %] (09/08/14 5:03 PM) Monocytes [2.0-12.0 8.1 % %] (09/08/14 5:03 PM) Eosinophils [0.0-4.0 1.3 % %] (09/08/14 5:03 PM) Basophils [0.0-1.0 0.6 % %] (09/08/14 5:03 PM) Segs-Bands # 3.5 K/CMM [1.5-8.1 K/CMM] (09/08/14 5:03 PM) Lymphocytes # 1.4 K/CMM [1.0-5.5 K/CMM] (09/08/14 5:03 PM) Monocytes # [0.0-0.8 0.4 K/CMM K/CMM] (09/08/14 5:03 PM) Eosinophils # 0.1 K/CMM [0.0-0.5 K/CMM] (09/08/14 5:03 PM) Microcyte [None 1+ Seen] *ABN* (09/08/14 5:03 PM) Immunizations No data available for this section Procedures No data available for this section Social History Social History Type Response Smoking Status Never smoker; Exposure to T obacco Smoke None; Cigarette Smoking Last 365 Days No; Reg Smoking Cessation Counseli ng No Assessment and Plan No data available for this section
--- OUTSIDE RECORDS SUMMARY | 2019-09-06 11:34 | XMS REPORT | Summary of Care ---
Author Author [facility] Organization [facility] Address Unknown Phone Unavailable Encounter HQ Yajaira(FIN) [id number] Date(s): 11/14/18 - 11/14/18 [facility] [address] [place] [address]- [phone] Discharge Disposition: Home or Self Care Attending Physician: Jb Darnell MD Referring Physician: Parag Burnham MD Vital Signs Most recent to 1 oldest [Reference Range]: Height 167.64 cm (11/14/18 11:58 AM) Blood Pressure 148/91 mmHg [90-140/60-90 mmHg] *HI* (11/14/18 11:58 AM) Peripheral Pulse 93 bpm Rate [60-100 bpm] (11/14/18 11:58 AM) Weight 90.909 kg (11/14/18 11:58 AM) Body Mass Index 32.35 m2 (11/14/18 11:58 AM) Problem List Condition Effective Dates Status Health Status Informan t Anxiety(Confirmed) Active Diabetes(Confirmed) Active HLD Active (hyperlipidemia)(Con firmed) HTN Active (hypertension)(Confi rmed) Bipolar Active disorder(Confirmed) Nausea(Confirmed) Active Allergies, Adverse Reactions, Alerts Substance Reaction Severity Status lisinopril Active Medications Ambien 10 mg oral tablet 10 mg = 1 tab, PO, Bedtime, 0 Refill(s) Start Date: 11/14/18 Status: Ordered ARIPiprazole 0 Refill(s) Start Date: 11/14/18 Status: Ordered cloNIDine 0 Refill(s) Start Date: 11/14/18 Status: Ordered gabapentin 300 mg oral capsule 300 mg = 1 cap, PO, TID, 0 Refill(s) Start Date: 11/14/18 Status: Ordered losartan PO, Daily, 0 Refill(s) Start Date: 11/14/18 Status: Ordered [place] 10/325 oral tablet 1 tab, PO, Q6H, 0 Refill(s) Start Date: 11/14/18 Status: Ordered tizanidine PO, 0 Refill(s) Start Date: 11/14/18 Status: Ordered Results No data available for this section [...] Smoking Cessation Counseling No entered on: 11/14/18 Assessment and Plan No data available for this section
--- OUTSIDE RECORDS SUMMARY | 2019-09-06 11:34 | XMS REPORT | Summary of Care ---
Author Author [facility] Organization [facility] Address Unknown Phone Unavailable Encounter FLORA Gates(STEPHEN) [id number] Date(s): 02/23/19 - 02/23/19 [facility] [address] [place] [address]- [phone] Discharge Disposition: Home or Self Care Attending Physician: Jb Darnell MD Referring Physician: Jb Darnell MD Vital Signs No data available for this section Problem List Condition Effective Dates Status Health Status Informan t Anxiety(Confirmed) Active Degenerative disc Active disease, lumbar(Confirmed) Diabetes(Confirmed) Active HLD Active (hyperlipidemia)(Con firmed) HTN Active (hypertension)(Confi rmed) Bipolar Active disorder(Confirmed) Nausea(Confirmed) Active Simple Active obesity(Confirmed) Allergies, Adverse Reactions, Alerts Substance Reaction Severity Status lisinopril Active Medications No data available for this section Results No data available for this section Immunizations Given and Recorded Vaccine Date Status Refusal Reason pneumococcal 23-valent vaccine 06/19/16 Given influenza virus vaccine, inactivated 06/19/16 G iven Procedures Procedure Date Related Diagnosis Body Site Status Cholecystectomy Completed Colonoscopy Completed Hernia repair Completed Hysterectomy Completed Tasha-en-y gastric bypass Completed Social History Social History Type Response Alcohol Never Employment/School Status: Unemployed. Substance Abuse Use: None. Smoking Status Never smoker; Ready to dunaway ge: No; Concerns about tobacco use in household: No; Exposure to Tobacco Smoke None; Cig arette Smoking Last 365 Days No; Reg Smoking Cessation Counseling No entered on: 12/11/18 Assessment and Plan No data available for this section
--- OUTSIDE RECORDS SUMMARY | 2019-09-06 11:34 | XMS REPORT | Summary of Care ---
Author Author [facility] Organization [facility] Address Unknown Phone Unavailable Encounter HQ Karstenr_alexis(FIN) [id number] Date(s): 10/25/18 - 10/26/18 [facility] [address] [place] [address]- [phone] Vital Signs No data available for this [...]
--- OUTSIDE RECORDS SUMMARY | 2019-09-06 11:34 | XMS REPORT | Summary of Care ---
Author Author [facility] Organization [facility] Address Unknown Phone Unavailable Encounter FLORA Gates(STEPHEN) [id number] Date(s): 12/11/18 - 12/11/18 [facility] [address] [place] [address]- [phone] Discharge Disposition: Home or Self Care Attending Physician: Jb Darnell MD Referring Physician: Jb Darnell MD Vital Signs 1 2 3 Most recent to oldest [Reference Range]: 167.64 cm (12/06/18 12:37 PM) Height 98.7 DegF (12/06/18 12:07 PM) Temperature Oral [96.4-99.1 DegF] 147/98 mmHg *HI* (12/11/18 1:45 PM) 120/82 mmHg (12/11/18 1:45 PM) 147/98 mmHg *HI* (12/11/18 1:00 PM) Blood Pressure [90-140/60-90 mmHg] 16 BRMIN (12/11/18 1:00 PM) 15 BRMIN (12/11/18 12:45 PM) 16 BRMIN (12/11/18 12:30 PM) Respiratory Rate [14-20 BRMIN] 63 bpm (12/11/18 9:30 AM) 71 bpm (12/06/18 12:07 PM) Peripheral Pulse Rate [60-100 bpm] 97.784 kg (12/06/18 12:37 PM) Weight 34.79 m2 (12/06/18 12:37 PM) Body Mass Index Problem List Condition [...] 30 day, Stop date: 01/10/19 11:48:00 CDT Start Date: 12/11/18 Stop Date: 12/11/18 Status: Discontinued acetaminophen-hydrocodone 325 mg-5 mg oral tablet 1 tab, Route: PO, Drug Form: TAB, Dosing Weight 97.784, kg, Q4H, PRN Pain, Start date: 12/11/18 11:49:00 CDT, Duration: 30 day, Stop date: 01/10/19 11:48:00 CDT Start Date: 12/11/18 Stop Date: 12/11/18 Status: Discontinued ceFAZolin (ANES) Route: IV, Drug form: INJ, ONCE, Stop date: 12/11/18 11:03:00 CDT Start Date: 12/11/18 Stop Date: 12/11/18 Status: Completed ceFAZolin (SCIP) 1 gm, Route: IVPB, Drug form: INJ, Q8H, Dosing Weight 97.784, kg, Start date: 11:49:00 CDT, Duration: 3 doses or times, Stop date: 12/12/18 0:00:00 CDT , ABX Indication: Surgical Prophylaxis Start Date: 12/11/18 Stop Date: 12/11/18 Status: Discontinued Colace 100 mg oral capsule 100 mg, 1 cap, Route: PO, BID, Dosing Weight 97.784, kg, Start date: 12/11/18 17 :00:00 CDT, Duration: 30 day, Stop date: 01/10/19 9:00:00 CDT Start Date: 12/11/18 Stop Date: 12/11/18 Status: Discontinued Dilaudid 0.5 mg, Route: IV, Q3H, Dosing Weight 97.784, kg, PRN Pain, Start date: 12/11/18 11:49:00 CDT, Duration: 30 day, Stop date: 01/10/19 11:48:00 CDT Start Date: 12/11/18 Stop Date: 12/11/18 Status: Discontinued Dilaudid 1 mg, Route: IV, Q3H, Dosing Weight 97.784, kg, PRN Pain, Start date: 12/11/18 1 1:49:00 CDT, Duration: 30 day, Stop date: 01/10/19 11:48:00 CDT Start Date: 12/11/18 Stop Date: 12/11/18 Status: Discontinued fentaNYL (ANES) Route: IV, Drug form: INJ, ONCE, Stop date: 12/11/18 11:03:00 CDT Start Date: 12/11/18 Stop Date: 12/11/18 Status: Completed glycopyrrolate (ANES) Route: IV, Drug form: INJ, ONCE, Stop date: 12/11/18 12:00:00 CDT Start Date: 12/11/18 Stop Date: 12/11/18 Status: Completed heparin 5000 units/mL injectable solution 5,000 unit, Route: SUB-Q, Drug form: INJ, Q12H, Dosing Weight 97.784, kg, Start date: 12/12/18 8:00:00 CDT, Duration: 30 day, Stop date: 01/10/19 21:00:00 CDT Start Date: 12/12/18 Stop Date: 12/11/18 Status: Canceled Insulin regular 5 unit, Route: IV, ONCE, Dosing Weight 97.784, kg, Start date: 12/11/18 9:30:00 CDT, Stop date: 12/11/18 9:30:00 CDT Start Date: 12/11/18 Stop Date: 12/11/18 Status: Completed Insulin regular 3 unit, Route: IV, ONCE, Dosing Weight 97.784, kg, Start date: 12/11/18 10:04:00 CDT, Stop date: 12/11/18 10:04:00 CDT Start Date: 12/11/18 Stop Date: 12/11/18 Status: Completed Lactated Ringers Injection IV (ANES) 1000 mL Route: IV, Total Volume: 1,000, Start date: 12/11/18 10:28:00 CDT, Stop date: 11:28:00 CDT Start Date: 12/11/18 Stop Date: 12/11/18 Status: Completed Lactated Ringers Injection IV 1000 mL 1,000 mL, Rate: 75 ml/hr, Infuse over: 13.3 hr, Route: IV, Dosing Weight 97.784 kg, Total Volume: 1,000, Start date: 12/11/18 9:38:00 CDT, Duration: 30 day, Sto p date: 01/10/19 9:37:00 CDT, 2.16, m2 Start Date: 12/11/18 Stop Date: 12/11/18 Status: Discontinued lidocaine (ANES) Route: IV, Drug form: INJ, ONCE, Stop date: 12/11/18 11:19:00 CDT Start Date: 12/11/18 Stop Date: 12/11/18 Status: Completed magnesium citrate 300 ml, Route: PO, Drug Form: LIQ, Dosing Weight 97.784, kg, ONCE, PRN Constipat ion, Start date: 12/11/18 11:49:00 CDT Start Date: 12/11/18 Stop Date: 12/11/18 Status: Discontinued metoclopramide (ANES) Route: IV, Drug form: INJ, ONCE, Stop date: 12/11/18 12:00:00 CDT Start Date: 12/11/18 Stop Date: 12/11/18 Status: Completed midazolam (ANES) Route: IV, Drug form: SOLN, ONCE, Stop date: 12/11/18 10:58:00 CDT Start Date: 12/11/18 Stop Date: 12/11/18 Status: Completed neostigmine (ANES) Route: IV, Drug form: INJ, ONCE, Stop date: 12/11/18 12:00:00 CDT Start Date: 12/11/18 Stop Date: 12/11/18 Status: Completed [place] 10/325 oral tablet 1 tab, PO, Q6H, # 60 tab, 0 Refill(s), given to patient Start Date: 12/11/18 Stop Date: 01/02/19 Status: Ordered ondansetron (ANES) Route: IV, Drug form: INJ, ONCE, Stop date: 12/11/18 12:00:00 CDT Start Date: 12/11/18 Stop Date: 12/11/18 Status: Completed oxyCODONE 5 mg oral tablet, immediate release 10 mg, Route: PO, Drug form: TAB, ONCE, Dosing Weight 97.784, kg, PRN Pain Score 7-10, Start date: 12/11/18 13:02:00 CDT Start Date: 12/11/18 Stop Date: 12/11/18 Status: Completed Pepcid 20 mg oral tablet 20 mg, 1 tab, Route: PO, Drug form: TAB, Q12H, Dosing Weight 97.784, kg, Start d ate: 12/11/18 21:00:00 CDT, Duration: 30 day, Stop date: 01/10/19 9:00:00 CDT Start Date: 12/11/18 Stop Date: 12/11/18 Status: Discontinued propofol (ANES) Route: IV, Drug form: INJ, ONCE, Stop date: 12/11/18 11:03:00 CDT Start Date: 12/11/18 Stop Date: 12/11/18 Status: Completed rocuronium (ANES) Route: IV, Drug form: INJ, ONCE, Stop date: 12/11/18 11:14:00 CDT Start Date: 12/11/18 Stop Date: 12/11/18 Status: Completed Senokot 2 tab, Route: PO, Dosing Weight 97.784, kg, Daily, Start date: 12/12/18 9:00:00 CDT, Duration: 30 day, Stop date: 01/10/19 9:00:00 CDT Start Date: 12/12/18 Stop Date: 12/11/18 Status: Canceled Sodium Chloride 0.9% IV 1000 mL 1,000 mL, Rate: 75 ml/hr, Infuse over: 13.3 hr, Route: IV, Dosing Weight 97.784 kg, Total Volume: 1,000, Start date: 12/11/18 11:49:00 CDT, Duration: 30 day, St op date: 01/10/19 11:48:00 CDT, 2.16, m2 Start Date: 12/11/18 Stop Date: 12/11/18 Status: Discontinued Sodium Chloride 0.9% IV 1000 mL 1,000 mL, Rate: 75 ml/hr, Infuse over: 13.3 hr, Route: IV, Dosing Weight 97.784 kg, Total Volume: 1,000, Start date: 12/11/18 9:38:00 CDT, Duration: 30 day, Sto p date: 01/10/19 9:37:00 CDT, 2.16, m2 Start Date: 12/11/18 Stop Date: 12/11/18 Status: Discontinued Tylenol 650 mg, Route: PO, Drug form: TAB, Q4H, Dosing Weight 97.784, kg, PRN Pain, Star t date: 12/11/18 11:49:00 CDT, Duration: 30 day, Stop date: 01/10/19 11:48:00 CD T Start Date: 12/11/18 Stop Date: 12/11/18 Status: Discontinued Zofran 4 mg, Route: IV, Drug form: INJ, Q8H, Dosing Weight 97.784, kg, PRN Nausea, Star t date: 12/11/18 11:49:00 CDT, Duration: 30 day, Stop date: 01/10/19 11:48:00 CD T Start Date: 12/11/18 Stop Date: 12/11/18 Status: Discontinued Results Most recent to 1 oldest [Reference Range]: Neutrophils # 2.9 K/CMM [1.5-8.1 K/CMM] (12/06/18 12:44 PM) Lymphocytes # 1.2 K/CMM [1.0-5.5 K/CMM] (12/06/18 12:44 PM) Monocytes # [0.0-0.8 0.3 K/CMM K/CMM] (12/06/18 12:44 PM) eGFR 49 mL/min/1.73m2 1 *NA* (12/06/18 12:44 PM) ABO/Rh A POS *Unknown* (12/06/18 12:44 PM) A/G Ratio [0.7-1.6] 0.9 (12/06/18 12:44 PM) Antibody Scrn Negative (12/06/18 12:44 PM) Albumin Lvl [3.5-5.0 3.4 g/dL g/dL] *LOW* (12/06/18 12:44 PM) Alk Phos [39-136 113 unit/L unit/L] (12/06/18 12:44 PM) ALT [0-65 unit/L] 25 unit/L (12/06/18 12:44 PM) AGAP [10.0-20.0 10.6 mEq/L mEq/L] (12/06/18:44 PM) AST [0-37 unit/L] 11 unit/L (12/06/18 12:44 PM) B/C Ratio [6-25] 15 (12/06/18:44 PM) Basophils [0.0-1.0 0.5 % %] (12/06/18:44 PM) BUN [7-22 mg/dL] 19 mg/dL (12/06/1844 PM) Calcium Lvl 9.0 mg/dL [8.5-10.5 mg/dL] (12/06/18:44 PM) Chloride Lvl [95-109 105 mEq/L mEq/L] (12/06/1844 PM) CO2 [24-32 mEq/L] 28 mEq/L (12/06/18:44 PM) Creatinine Lvl 1.29 mg/dL [0.50-1.40 mg/dL] (12/06/18:44 PM) Eosinophils [0.0-4.0 1.0 % %] (12/06/18:44 PM) Globulin [2.7-4.2 3.7 g/dL g/dL] (12/06/18:44 PM) Glucose Lvl [70-99 291 mg/dL mg/dL] *HI* (12/06/18:44 PM) Hct [36.0-48.0 %] 34.1 % *LOW* (12/06/18 12:44 PM) Hgb [12.0-16.0 g/dL] 11.2 g/dL *LOW* (12/06/18:44 PM) Hgb A1C [<=5.6 %] 11.7 % *HI* (12/06/18 12:54 PM) INR [0.85-1.17] 0.88 (12/06/18:44 PM) Potassium Lvl 4.6 mEq/L [3.5-5.1 mEq/L] (12/06/18 12:44 PM) Lymphocytes 27.4 % [20.0-40.0 %] (12/06/18:44 PM) MCH [27.0-31.0 pg] 30.0 pg (12/06/18:44 PM) MCHC [32.0-36.0 32.9 g/dL g/dL] (12/06/18:44 PM) MCV [80.0-98.0 fL] 91.2 fL (12/06/18:44 PM) Monocytes [2.0-12.0 6.0 % %] (12/06/18:44 PM) MPV [7.4-10.4 fL] 8.8 fL (12/06/18:44 PM) Sodium Lvl [135-145 139 mEq/L mEq/L] (12/06/18:44 PM) Platelet [133-450 183 K/CMM K/CMM] (12/06/1844 PM) Segs [45.0-75.0 %] 65.1 % (12/06/18:44 PM) Total Protein 7.1 g/dL [6.4-8.4 g/dL] (12/06/18:44 PM) PT [12.0-14.7 11.8 seconds seconds] *LOW* (12/06/18:44 PM) PTT [22.9-35.8 31.5 seconds seconds] (12/06/18:44 PM) RBC [4.20-5.40 3.74 M/CMM M/CMM] *LOW* (12/06/18:44 PM) RDW [11.5-14.5 %] 17.6 % *HI* (12/06/18:44 PM) Bili Total [0.2-1.3 0.4 mg/dL mg/dL] (12/06/18:44 PM) WBC [3.7-10.4 K/CMM] 4.4 K/CMM (12/06/18 12:44 PM) 1Result Comment: The eGFR is calculated [...]
[2019-09-06] MEDS ORDERED: VANCOMYCIN 1GM/NS 250 ML 250 ML IV STA (11:55)
[2019-09-06] MEDS ORDERED: SODIUM CHLORIDE 0.9% 1000ML 1,000 ML IV STA (11:55)
[2019-09-06] MEDS ORDERED: CEFEPIME 1GM/NS 0.9% 50 ML 50 ML IV STA (11:55)
[2019-09-06] MEDS ORDERED: HYDRALAZINE HCL 20 MG/ML VIAL IV ONE (12:00)
[2019-09-06 12:07] LABS: BASOPHILS % 0.2 % (0.0-1.0); EOSINOPHILS # (AUTO) 0.1 (0.0-0.4); HEMATOCRIT 35.9 % (34.2-44.1); HEMOGLOBIN 11.6 g/dL (12.0-16.0); LYMPHOCYTES % 11.9 % (18.0-39.1); MEAN CORPUSCULAR HGB CONC 32.3 g/dL (31-35); MEAN CORPUSCULAR VOLUME 92.8 fL (81-99); MONOCYTES # (AUTO) 0.4 (0.2-0.8); MONOCYTES % 4.5 % (4.4-11.3); NEUTROPHILS # (AUTO) 7.2 (2.1-6.9); NEUTROPHILS % 81.9 % (38.7-80.0); PLATELET COUNT 218 x10e3/uL (140-360); RED BLOOD COUNT 3.87 x10e6/uL (3.6-5.1); RED CELL DISTRIBUTION WIDTH 14.4 % (11.7-14.4)
[2019-09-06 12:44] LABS: ALANINE AMINOTRANSFERASE 22 IU/L (0-55); ALBUMIN/GLOBULIN RATIO 1.1 (0.8-2.0); ALKALINE PHOSPHATASE 146 IU/L (40-150); ANION GAP 15.2 mmol/L (8-16); BLOOD UREA NITROGEN 27 mg/dL (7-26); BUN/CREATININE RATIO 17 (6-25); CALCIUM 9.5 mg/dL (8.4-10.2); CARBON DIOXIDE 20 mmol/L (22-29); CHLORIDE 105 mmol/L (98-107); CREATININE, SERUM 1.61 mg/dL (0.57-1.11); EST GLOMERULAR FILTRATION RATE 34 ML/MIN (60-); GLUCOSE 214 mg/dL (74-118); POTASSIUM 5.2 mmol/L (3.5-5.1); SODIUM 135 mmol/L (136-145)
[2019-09-06] MEDS ORDERED: SOD POLYSTYRENE SULFONATE SUSP 15 GM/60 ML BTL PO ONE (13:15)
--- OUTSIDE RECORDS SUMMARY | 2019-09-06 13:33 | XMS REPORT | Clinical Summary ---
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
--- OUTSIDE RECORDS SUMMARY | 2019-09-06 13:33 | XMS REPORT | Clinical Summary ---
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 Name Role Phone PCP Unavailable Allergies Comments [...] obesity 07/05/2016 H/O bipolar disorder - per [facility] Records 07/05/2016 S/P cholecystectomy 07/05/2016 s/p gastric [...] Insomnia, unspecified type 01/01/2019 Refill Psychiatry Cortez Umanzor MD Borderline personality disorder; [...] Comments Vital Sign 136/90 04/19/2019 8:[address] JUDGE Blood Pressure 67 04/19/2019 8:[address] JUDGE Pulse 36.8 C (98.2 F) 04/19/2019 8:[address] JUDGE Temperature 18 04/19/2019 8:[address] JUDGE Respiratory Rate - - Oxygen Saturation - - Inhaled Oxygen Concentration 101.6 kg (224 lb) 04/19/2019 8:[address] JUDGE Weight 167.6 cm (5' 6") 04/19/2019 8:[address] JUDGE Height 36.15 04/19/2019 8:[address] JUDGE Body Mass Index Plan of Treatment Care Team Description Date Type Specialty Cortez Umanzor MD [address] [facility] [id number] [place] [address] 2 month follow up appointment [...] / Dates Group MEDICARE MEDICARE xxxxxxxxxxx 2016-P [id number] [place] [address] [place] MEDICAID [id number] xxxxxxxxx 2016-P [phone] resent [id number] MEDICARE [place], [place] B[place] [id number] Y
--- OUTSIDE RECORDS SUMMARY | 2019-09-06 13:34 | XMS REPORT | Continuity of Care Document ---
Author Author [employer] ExchangeVERONICA [employer] Address Unknown Phone Unavailable Care Team Providers Care Director [facility] Name Role Phone [employer] Unavailable Un available Problems Problem Status Onset Date Classification Date Reported Comments Source M54.16 RADICULOPATHY, LUMBAR REGION, M54 Active 02/13/2019 [facility] UNK Active 0 11/16/2018 [facility] Type 2 diabetes mellitus with hyperglycemia 03/01/2018 09/11/2018 [facility] Other disorder of circulatory system 02/22/2018 09/11/2018 [facility] Hyperglycemia, unspecified 02/22/2018 09/11/2018 [facility] Nausea with vomiting, unspecified 02/22/2018 09/11/2018 [facility] VOMITING Active 02/22/2018 [facility] Vomiting, unspecified 01/17/2017 01/20/2017 [facility] M79.89 Active 12/21/2016 [facility] VENOFER / 200MG / [id number] / [id number] / D50.9 Active 10/15/2016 [facility] ACUTE RENAL FAILURE Active 09/07/2016 [facility] N/V Active 0 09/07/2016 [facility] INTRACTABLE NAUSEA AND VOMITING Active 08/17/2016 [facility] SEVERE UNCONTROLLED HYPERTENSION Active 06/18/2016 [facility] AMS Active 0 06/18/2016 [facility] Unspecified abdominal pain 06/07/2016 06/10/2016 [facility] BACK PAIN Active 06/07/2016 [facility] Discharge Diagnosis: Acute esophagitis 01/19/2016 01/22/2016 [facility] Discharge Diagnosis: Nausea with vomiting 01/19/2016 01/22/2016 [facility] Discharge Diagnosis: Acid reflux 01/19/2016 01/22/2016 [facility] ABD PAIN/VOMITING Active 01/18/2016 [facility] Discharge Diagnosis: Right-sided chest wall pain 09/08/2014 09/11/2014 [facility] FLANK PAIN Active 09/08/2014 [facility] Anxiety (finding) Active Problem 02/25/2019 [facility] Diabetes mellitus (disorder) A ctive Problem [facility] Hyperlipidemia (disorder) Acti ve Problem [facility] Hypertensive disorder, systemic arterial (disorder) Active Problem 02/25/2019 [facility] Bipolar disorder (disorder) Ac tive Problem [facility] Nausea (finding) Active Problem 02/25/2019 [facility] Degeneration of lumbar intervertebral disc (disorder) Active Problem 02/25/2019 [facility] Simple obesity (disorder) Acti ve Problem [facility] Essential (primary) hypertension 09/11/2018 [facility] Bariatric surgery status 09/11/2018 [facility] 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 09/11/2018 [facility] superintendent terminal (current) use of insulin 09/11/2018 [facility] Other group home (current) drug therapy 09/11/2018 [facility] ESSENTIAL (PRIMARY) HYPERTENSION Active [facility] NAUSEA WITH VOMITING, UNSPECIFIED Active [facility] ACUTE KIDNEY FAILURE, UNSPECIFIED Active [facility] IRON DEFICIENCY ANEMIA, UNSPECIFIED Active [facility] OTHER SPECIFIED SOFT TISSUE DISORDERS Active [facility] RADICULOPATHY, LUMBAR REGION A ctive [facility] Medications Medication Details Route Status Patient Instructions Ordering Provider Order Date Source Senokot 2 tab, Route: PO, Dosi ng Weight 97.784, kg, Daily, Start date: 12/12/18 9:00:00 CDT, Duration: 30 day, Stop date: 01/10/19 9:00:00 CDT No Longer Active 12/12/2018 [facility] heparin sodium, porcine 2500 UNT/ML Injectable Solutio n 5,000 unit, Route: SUB-Q, Drug form: INJ, Q12H, Dosing Weight 97.784, kg, Start date: 12/12/18 8:00:00 CDT, Duration: 30 day, Stop date: 01/10/19 21:00:00 CDT No Longer Active 12/12/2018 [facility] Famotidine 20 MG Oral Tablet [Pepcid] 20 mg, 1 tab, Route: PO, Drug form: TAB, Q12H, Dosing Weight 97.784, kg, Start date: 12/11/18 21:00:00 CDT, Duration: 30 day, Stop date: 01/10/19 9:00:00 CDT Inactive 12/12/2018 [facility] Docusate Sodium 100 MG Oral Capsule [Colace] 100 mg, 1 cap, Route: PO, BID, Dosing Weight 97.784, kg, Start date: 12/11/18 17:00:00 CDT, Duration: 30 day, Stop date: 01/10/19 9:00:00 CDT Inactive 12/11/2018 [facility] Oxycodone Hydrochloride 5 MG Oral Tablet 10 mg, Route: PO, Drug form: TAB, ONCE, Dosing Weight 97.784, kg, PRN Pain Score 7-10, Start date: 12/11/18 13:02:00 CDT Inactive 12/11/2018 [facility] ondansetron (ANES) Route: IV, Drug form: INJ, ONCE, Stop date: 12/11/18 12:00:00 CDT Inactive 12/11/2018 [facility] glycopyrrolate (ANES) Route: I V, Drug form: INJ, ONCE, Stop date: 12/11/18 12:00:00 CDT Inactive 12/11/2018 [facility] neostigmine (ANES) Route: IV, Drug form: INJ, ONCE, Stop date: 12/11/18 12:00:00 CDT Inactive 12/11/2018 [facility] metoclopramide ([facility]) Route: I V, Drug form: INJ, ONCE, Stop date: 12/11/18 12:00:00 CDT Inactive 12/11/2018 [facility] Acetaminophen 325 MG / Hydrocodone Derian trate 10 MG Oral Tablet [Chadwicks 10/325] 1 tab, PO, Q6H, # 60 tab, 0 Refill(s), g iven to patient Active 12/11/2018 [facility] Sodium Chloride 0.9% IV 1000 mL 1,000 mL, Rate: 75 ml/hr, Infuse over: 13.3 hr, Route: IV, Dosing Weight 97.784 kg, Total Volume: 1,000, Start date: 12/11/18 11:49:00 CDT, Duration: 30 day, Stop date: 01/10/19 11:48:00 CDT, 2.16, m2 Inactiv e 12/11/2018 [facility] Cefazolin 1 gm, Route: IVPB, D rug form: INJ, Q8H, Dosing Weight 97.784, kg, Start date: 12/11/18 11:49:00 CDT, Duration: 3 doses or times, Stop date: 12/12/18 0:00:00 CDT, ABX Indication: Surgical Prophylaxis Inactive 12/11/2018 [facility] Tylenol 650 mg, Route: PO, Jose g form: TAB, Q4H, Dosing Weight 97.784, kg, PRN Pain, Start date: 12/11/18 11:49:00 CDT, Duration: 30 day, Stop date: 01/10/19 11:48:00 CDT Inactive 12/11/2018 [facility] Dilaudid 0.5 mg, Route: IV, Q3 H, Dosing Weight 97.784, kg, PRN Pain, Start date: 12/11/18 11:49:00 CDT, Duration: 30 day, Stop date: 01/10/19 11:48:00 CDT Inactive 12/11/2018 [facility] Acetaminophen 325 MG / Hydrocodone Derian trate 5 MG Oral Tablet 1 tab, Route: PO, Drug Form: TAB, Dosing Weight 97.784, kg, Q4H, PRN Pain, Start date: 12/11/18 11:49:00 CDT, Duration: 30 day, Stop date: 01/10/19 11:48:00 CDT Inactive 12/11/2018 [facility] Zofran 4 mg, Route: IV, Drug f orm: INJ, Q8H, Dosing Weight 97.784, kg, PRN Nausea, Start date: 12/11/18 11:49:00 CDT, Duration: 30 day, Stop date: 01/10/19 11:48:00 CDT Inactive 12/11/2018 [facility] magnesium citrate 300 ml, Rout e: PO, Drug Form: LIQ, Dosing Weight 97.784, kg, ONCE, PRN Constipation, Start date: 12/11/18 11:49:00 CDT Inactive 12/11/2018 [facility] lidocaine (ANES) Route: IV, Dr ug form: INJ, ONCE, Stop date: 12/11/18 11:19:00 CDT Inactive 12/11/2018 [facility] rocuronium (ANES) Route: IV, D rug form: INJ, ONCE, Stop date: 12/11/18 11:14:00 CDT Inactive 12/11/2018 [facility] fentaNYL (ANES) Route: IV, Jose g form: INJ, ONCE, Stop date: 12/11/18 11:03:00 CDT Inactive 12/11/2018 [facility] ceFAZolin (ANES) Route: IV, Dr ug form: INJ, ONCE, Stop date: 12/11/18 11:03:00 CDT Inactive 12/11/2018 [facility] propofol (ANES) Route: IV, Jose g form: INJ, ONCE, Stop date: 12/11/18 11:03:00 CDT Inactive 12/11/2018 [facility] midazolam (ANES) Route: IV, Dr ug form: SOLN, ONCE, Stop date: 12/11/18 10:58:00 CDT Inactive 12/11/2018 [facility] Lactated Ringers Injection IV (ANES) 1000 mL Route: IV, Total Volume: 1,000, Start date: 12/11/18 10:28:00 CDT, Stop date: 12/11/18 11:28:00 CDT Inactive 12/11/2018 [facility] Insulin regular 3 unit, Route: IV, ONCE, Dosing Weight 97.784, kg, Start date: 12/11/18 10:04:00 CDT, Stop date: 12/11/18 10:04:00 CDT Inactive 12/11/2018 [facility] Calcium Chloride 0.0014 MEQ/ML / Potassi um Chloride 0.004 MEQ/ML / Sodium Chloride 0.103 MEQ/ML / Sodium Lactate 0.028 MEQ/ML Injectable Solution 1,000 mL, Rate: 75 ml/hr, Infuse over: 1 3.3 hr, Route: IV, Dosing Weight 97.784 kg, Total Volume: 1,000, Start date: 12/11/18 9:38:00 CDT, Duration: 30 day, Stop date: 01/10/19 9:37:00 CDT, 2.16, m2 Inactive 12/11/2018 [facility] Sodium Chloride 0.9% IV 1000 mL 1,000 mL, Rate: 75 ml/hr, Infuse over: 13.3 hr, Route: IV, Dosing Weight 97.784 kg, Total Volume: 1,000, Start date: 12/11/18 9:38:00 CDT, Duration: 30 day, Stop date: 01/10/19 9:37:00 CDT, 2.16, m2 Inactive 12/11/2018 [facility] Insulin regular 5 unit, Route: IV, ONCE, Dosing Weight 97.784, kg, Start date: 12/11/18 9:30:00 CDT, Stop date: 12/11/18 9:30:00 CDT Inactive 12/11/2018 [facility] Clonidine 0 Refill(s) Active 11/14/2018 [facility] gabapentin 300 MG Oral Capsule 300 mg = 1 cap, PO, TID, 0 Refill(s) Active 11/14/2018 [facility] Zolpidem tartrate 10 MG Oral Tablet [Ambien] 10 mg = 1 tab, PO, Bedtime, 0 Refill(s) Active 11/14/2018 [facility] tizanidine PO, 0 Refill(s) Active 11/14/2018 [facility] Acetaminophen 325 MG / Hydrocodone Derian trate 10 MG Oral Tablet [Chadwicks 10/325] 1 tab, PO, Q6H, 0 Refill(s) Active 11/14/2018 [facility] Losartan PO, Daily, 0 Refill(s) Active 11/14/2018 [facility] ARIPiprazole 0 Refill(s) Active 11/14/2018 [facility] Metformin hydrochloride 500 MG Oral Tablet 500 mg = 1 tab, PO, BID-Meals, # 60 tab, 0 Refill(s) Active 02/23/2018 [facility] Clonidine Hydrochloride 0.1 MG Oral Tablet 0.1 mg = 1 tab, PO, BID, # 60 tab, 3 Refill(s) Active 02/23/2018 [facility] Ondansetron 4 MG Oral Tablet [Zofran] 4 mg = 1 tab, PO, BID, # 10 tab, 0 Refill(s) Active 02/23/2018 [facility] Sodium Chloride 0.9% (Bolus) IV 1,000 mL, 1000 ml/hr, Infuse Over: 1 hr, Route: IV, 1,000, Drug form: INJ, ONCE, Priority: STAT, Dosing Weight 81.818 kg, Start date: 02/22/18 18:33:00 COLLECTION COORDINATOR, Stop date: 02/22/18 18:33:00 COLLECTION COORDINATOR Inactive 02/23/2018 [facility] Atenolol Notes: (Same As: min) Inactive 02/23/2018 [facility] Clonidine Notes: (Same As: Cat apres) Inactive 02/23/2018 [facility] Sodium Chloride 0.9% (Bolus) IV 1,000 mL, 1000 ml/hr, Infuse Over: 1 hr, Route: IV, 1,000, Drug form: INJ, ONCE, Priority: STAT, Dosing Weight 81.818 kg, Start date: 02/22/18 18:31:00 COLLECTION COORDINATOR, Stop date: 02/22/18 18:31:00 COLLECTION COORDINATOR Inactive 02/23/2018 [facility] Labetalol 10 mg, 2 mL, Route: IV, Drug form: INJ, ONCE, Dosing Weight 81.818, kg, Start date: 02/22/18 17:05:00 COLLECTION COORDINATOR, Stop date: 02/22/18 17:05:00 COLLECTION COORDINATOR Inactive 02/22/2018 [facility] Sodium Chloride 0.9% IV 984.8 mL + M.V.I .-12 10 mL Daily + folic acid IV 1 mg Daily + thiamine IV 5 984.8 mL, Rate: 100 ml/hr, Infuse over: 10 hr, Route: IV, Dosing Weight 81.818 kg, Total Volume: 1,000, Start date: 02/22/18 17:02:00 COLLECTION COORDINATOR, Duration: 1 doses or times, Stop date: 02/23/18 3:01:00 COLLECTION COORDINATOR, 1.97, m2 Inactive 02/22/2018 [facility] Sodium Chloride 0.9% (Bolus) IV 1,000 mL, 1000 ml/hr, Infuse Over: 1 hr, Route: IV, 1,000, Drug form: INJ, ONCE, Priority: STAT, Dosing Weight 81.818 kg, Start date: 02/22/18 16:59:00 COLLECTION COORDINATOR, Stop date: 02/22/18 16:59:00 COLLECTION COORDINATOR Inactive 02/22/2018 [facility] Zofran Notes: (Same as: Zofran ) MEDICATION WASTE Product Size: 4 mg Product Wasted: ___ mg Inactive 02/22/2018 [facility] Sodium Chloride 0.9% IV 984.8 mL + M.V.I .-12 10 mL Daily + folic acid IV 1 mg Daily + thiamine IV 5 Notes: PROTECT FROM LIGHT REFRIGERATE Inactive 02/22/2018 [facility] Ondansetron 4 MG Oral Tablet [Zofran] 4 mg = 1 tab, PO, BID, # 10 tab, 0 Refill(s) Active 01/18/2017 [facility] Ranitidine 150 MG Oral Tablet [Zantac] 150 mg = 1 tab, PO, BID, # 60 tab, 0 Refill(s) Active 01/18/2017 [facility] GI cocktail 30 mL, Route: PO, Dosing Weight 91.818, kg, ONCE, STAT, Start date: 01/17/17 20:34:00 CDT, Stop date: 01/17/17 20:34:00 CDT Inactive 01/18/2017 [facility] Morphine 4 mg, Route: IVP, ONC E, Dosing Weight 91.818, kg, Priority: STAT, Start date: 01/17/17 16:43:00 CDT, Stop date: 01/17/17 16:43:00 CDT Inactive 01/17/2017 [facility] Ondansetron 4 mg, Route: IVP, Drug form: INJ, ONCE, Dosing Weight 91.818, kg, Priority: STAT, Start date: 01/17/17 16:43:00 CDT, Stop date: 01/17/17 16:43:00 CDT Inactive 01/17/2017 [facility] NS (Bolus) IV 1,000 mL, 1,000 ml/hr, Infuse Over: 1 hr, Route: IV, 1,000, Drug form: INJ, ONCE, Priority: STAT, Dosing Weight 91.818 kg, Start date: 01/17/17 13:56:00 CDT, Duration: 1 doses or times, Stop date: 13:56:00 CDT Inactive 01/17/2017 [facility] sodium chloride 0.9% 1000 ml INJ 984.8 m L + M.V.I.-12 10 mL Daily + folic acid IV 1 mg Daily + thia Notes: send to 2E Inactive 01/17/2017 [facility] Saline Flush 0.9% Notes: (Same as: BD Posiflush) Inactive 01/17/2017 [facility] Venofer + sodium chloride 0.9% INJ 90 mL Notes: Each 5ml contains 100mg elemental iron. Mix with NS Non-Formulary (Same as:Venofer) Administer IV only. MEDICATION WASTE Product Size: 100 mg Product Wasted: 0 mg Inactive 11/15/2016 [facility] Venofer + sodium chloride 0.9% INJ 90 mL Notes: Each 5ml contains 100mg elemental iron. Mix with NS Non-Formulary (Same as:Venofer) Administer IV only. MEDICATION WASTE Product Size: 100 mg Product Wasted: 0 mg Inactive 11/08/2016 [facility] Venofer + sodium chloride 0.9% INJ 90 mL Notes: Each 5ml contains 100mg elemental iron. Mix with NS Non-Formulary (Same as:Venofer) Administer IV only. MEDICATION WASTE Product Size: 100 mg Product Wasted: ___ mg No Longer Active 11/01/2016 [facility] Venofer + sodium chloride 0.9% INJ 90 mL Notes: Each 5ml contains 100mg elemental iron. Mix with NS Non-Formulary (Same as:Venofer) Administer IV only. MEDICATION WASTE Product Size: 100 mg Product Wasted: ___ mg Inactive 10/25/2016 [facility] Venofer + sodium chloride 0.9% INJ 90 mL Notes: Each 5ml contains 100mg elemental iron. Mix with NS Non-Formulary (Same as:Venofer) Administer IV only. MEDICATION WASTE Product Size: 100 mg Product Wasted: ___ mg Inactive 10/18/2016 [facility] amLODIPine 10 mg oral tablet 1 0 mg = 1 tab, PO, Daily, # 90 tab, 1 Refill(s), Pharmacy: [facility] [id number] Active 09/10/2016 [facility] Atenolol 50 MG Oral Tablet 50 mg = 1 tab, PO, BID, # 60 tab, 2 Refill(s), Pharmacy: [facility] [place] [id number] Active 09/10/2016 [facility] Lurasidone Hydrochloride 80 MG Oral Tablet [Latuda] 80 mg, PO, Daily, 0 Refill(s) Active 09/10/2016 [facility] insulin detemir 100 units/mL subcutaneous solution 8 unit, SUB-Q, Bedtime, # 15 mL, 0 Refill(s) Active 09/10/2016 [facility] Insulin Aspart 100 unit/ml - (Starting CD) 8 unit, SUB- Q, TID-Before Meals, # 30 mL, 0 Refill(s), Pharmacy: [facility] [place] [id number] Active 09/10/2016 [facility] Clonidine Hydrochloride 0.1 MG Oral Tablet 140, # 60 tab, 2 Refill(s), Pharmacy: [facility] [id number] Active 09/10/2016 [facility] Ondansetron 4 MG Oral Tablet [Zofran] 4 mg = 1 tab, PO, Q6H, PRN Nausea/Vomiting, X 8 day, # 30 tab, 0 Refill(s) Active 09/09/2016 [facility] Amlodipine Notes: (Same as: No rvasc) Inactive 09/09/2016 [facility] Insulin Glargine 100 UNT/ML Injectable S olution [Lantus] 8 unit, Route: SUB-Q, Bedtime, Dosing We ight 88.182, kg, Start date: 09/08/16 21:00:00 CDT, Duration: 30 day, Stop date: 10/07/16 21:00:00 CDT Inactive 09/09/2016 [facility] insulin detemir Notes: Same as Levemir Do not hold insulin without contacting prescriber WASTE: F/P - Black; E - Municipal Trash Bin "single patient use only" No Longer Active 09/09/2016 [facility] Clonidine Hydrochloride 0.1 MG Oral Tablet Notes: (Same As: Catapres) No Longer Active 09/08/2016 [facility] Humalog 8 unit, Route: SUB-Q, TID-Before Meals, Dosing Weight 88.182, kg, Start date: 09/08/16 16:30:00 CDT, Duration: 30 day, Stop date: 10/08/16 11:30:00 CDT Inactive 09/08/2016 [facility] insulin aspart Notes: Roll in palms of hands gently; Do not shake vigorously. (Same as: NovoLOG) "single patient use only" WASTE: F/P - Black; E - Municipal Trash Bin Stable for 28 days at room temperature. Expires in days from Date No Longer Active 09/08/2016 [facility] Atenolol 50 MG Oral Tablet Not es: (Same As:Tenormin) No Longer Active 09/08/2016 [facility] Amlodipine Notes: (Same as: No rvasc) No Longer Active 09/08/2016 [facility] Losartan Notes: (Same as: Gerardo swanson) No Longer Active 09/08/2016 [facility] Latuda 80 mg, Route: PO, Drug form: TAB, Daily, Dosing Weight 88.182, kg, Start date: 09/08/16 9:00:00 CDT, Duration: 30 day, Stop date: 10/07/16 9:00:00 CDT No Longer Active 09/08/2016 [facility] Nurse pls bring pt's own med: Latuda to pharmacy Nurse pls bring pt's own med: Latuda to pharmacy, reminder, Drug form: MISC, Route: MISC, QSHIFT, 09/08/16 8:00:00 CDT, Duration: 30 day, Stop date: 10/08/16 0:00:00 CDT No Longer Active 09/08/2016 [facility] Protonix Notes: For IV push re constitute with 10 ml 0.9% sodium chloride and push over 2 minutes. (Same as: Protonix) No Longer Active 09/08/2016 [facility] Phenergan Notes: Do not give I V push. (Same as: Phenergan) No Longer Active 09/08/2016 [facility] zolpidem Notes: (Same As: Ambi en) No Longer Active 09/08/2016 [facility] zolpidem 10 mg, Route: PO, Jose g form: TAB, Bedtime, Dosing Weight 88.182, kg, PRN Sleep, Start date: 09/08/16 4:51:00 CDT, Duration: 30 day, Stop date: 10/08/16 4:50:00 CDT Inactive 09/08/2016 [facility] Insulin, Aspart, Human Notes: Roll in palms of hands gently; Do not shake vigorously. (Same as: NovoLOG) "single patient use only" WASTE: F/P - Black; E - [employer] Trash Bin Stable for 28 days at room temperature. Expires in days from Date No Longer Active 09/08/2016 [facility] Dextrose 50% Syringe 12.5 gm, 25 mL, Route: IVP, Drug Form: INJ, Dosing Weight 88.182, kg, PRN, PRN Blood Glucose Results, Start date: 09/08/16 4:49:00 CDT, Duration: 30 day, Stop date: 10/08/16 4:48:00 CDT No Longer Active 09/08/2016 [facility] Glucagon 1 mg, Route: IM, Drug form: PDR/INJ, PRN, Dosing Weight 88.182, kg, PRN Blood Glucose Results, Start date: 09/08/16 4:49:00 CDT, Duration: 30 day, Stop date: 10/08/16 4:48:00 CDT No Longer Active 09/08/2016 [facility] Sodium Chloride 0.154 MEQ/ML Injectable Solution 1,000 mL, Rate: 125 ml/hr, Infuse over: 8 hr, Route: IV, Dosing Weight 88.182 kg, Total Volume: 1,000, Start date: 09/08/16 4:47:00 CDT, Duration: 30 day, Stop date: 10/08/16 4:46:00 CDT No Longer Active 09/08/2016 [facility] Saline Flush 0.9% Notes: (Same as: BD Posiflush) No Longer Active 09/08/2016 [facility] Ondansetron Notes: (Same as: Jace kingsley) MEDICATION WASTE Product Size: 4 mg Product Wasted: ___ mg No Longer Active 09/08/2016 [facility] Morphine Notes: (Same as:MORPh ine Sulfate) No Longer Active 09/08/2016 [facility] Acetaminophen 325 MG / Hydrocodone Derian trate 5 MG Oral Tablet Notes: (Same as: [place] 325/5) Do not ex ceed 4gm/day of acetaminophen. No Longer Active 09/08/2016 [facility] Metoclopramide 10 mg, Route: I EDI SPECIALIST, Drug form: INJ, ONCE, Dosing Weight 88.182, kg, Priority: STAT, Start date: 09/08/16 2:44:00 CDT, Stop date: 09/08/16 2:44:00 CDT Inactive 09/08/2016 [facility] Sodium Chloride 0.154 MEQ/ML Injectable Solution 1,000 mL, Infuse Over: 1 hr, Route: IV, ONCE, Priority: STAT, Dosing Weight 88.182 kg, Start date: 09/08/16 2:15:00 CDT, Duration: 1 doses or times, Stop date: 09/08/16 2:15:00 CDT Inactive 09/08/2016 [facility] Zofran 4 mg, Route: IVP, Drug form: INJ, ONCE, Dosing Weight 88.182, kg, Priority: STAT, Start date: 09/08/16 0:49:00 CDT, Stop date: 09/08/16 0:49:00 CDT Inactive 09/08/2016 [facility] Morphine 4 mg, Route: IVP, ONC E, Dosing Weight 88.182, kg, Priority: STAT, Start date: 09/08/16 0:49:00 CDT, Stop date: 09/08/16 0:49:00 CDT Inactive 09/08/2016 [facility] Protonix Notes: Tablet should not be chewed or crushed. (Same as: Protonix) No Longer Active 08/21/2016 [facility] Vitamin C Notes: (Same as: Vit fink C) No Longer Active 08/21/2016 [facility] ascorbic acid 500 mg oral tablet 500 mg = 1 tab, PO, Daily, # 30 tab, 0 Refill(s) Active 08/20/2016 [facility] Atenolol 25 MG Oral Tablet 50 mg = 2 tab, PO, Daily, # 30 tab, 0 Refill(s) Active 08/20/2016 [facility] ferrous sulfate 325 mg oral enteric coated tablet 325 mg = 1 tab, PO, TID, # 90 tab, 0 Refill(s) Active 08/20/2016 [facility] pantoprazole 40 mg oral enteric coated tablet 40 mg = 1 tab, PO, Before Dinner, # 30 tab, 0 Refill(s) Active 08/20/2016 [facility] thiamine 100 mg oral tablet 10 0 mg = 1 tab, PO, Daily, # 30 tab, 0 Refill(s) Inactive 08/20/2016 [facility] ferrous sulfate Notes: Give wi th food. "Do Not Crush" Inactive 08/20/2016 [facility] multivitamin with iron Notes: Same as Iron/C/B12/FA/SA Inactive 08/20/2016 [facility] Thiamine 100 mg, Route: PO, Dr ug form: TAB, Daily, Dosing Weight 91.364, kg, Start date: 08/20/16 9:00:00 CDT, Duration: 30 day, Stop date: 09/18/16 9:00:00 CDT No Longer Active 08/20/2016 [facility] Protonix Notes: For IV push re constitute with 10 ml 0.9% sodium chloride and push over 2 minutes. (Same as: Protonix) Inactive 08/20/2016 [facility] atenolol 25 mg oral tablet Not es: (Same As:Tenormin) No Longer Active 08/20/2016 [facility] amLODIPine Notes: (Same as: No rvasc) No Longer Active 08/20/2016 [facility] Sodium Chloride 0.154 MEQ/ML Injectable Solution 1,000 mL, Rate: 25 ml/hr, Infuse over: 40 hr, Route: IV, Dosing Weight 91.364 kg, Total Volume: 1,000, Start date: 08/19/16 14:44:00 CDT, Duration: 30 day, Stop date: 09/18/16 14:43:00 CDT Inactive 08/19/2016 [facility] Vasotec Notes: (Same as: Vasot ec-IV) No Longer Active 08/19/2016 [facility] Atenolol 25 MG Oral Tablet [Tenormin] Notes: (Same As:Tenormin) No Longer Active 08/18/2016 [facility] zolpidem Notes: (Same As: Ambi en) No Longer Active 08/18/2016 [facility] metFORMIN extended release Not es: (Same as: Glucophage XR) "Do Not Crush" No Longer Active 08/18/2016 [facility] Latuda 80 mg, Route: PO, Drug form: TAB, Daily, Dosing Weight 91.364, kg, Start date: 08/18/16 9:00:00 CDT, Duration: 30 day, Stop date: 09/16/16 9:00:00 CDT No Longer Active 08/18/2016 [facility] Losartan Notes: (Same as: Coza ar) No Longer Active 08/18/2016 [facility] Klonopin Notes: (Same As: Klon oPIN) No Longer Active 08/18/2016 [facility] Amlodipine Notes: (Same as: No rvasc) No Longer Active 08/18/2016 [facility] Insulin, Aspart, Human Notes: Roll in palms of hands gently; Do not shake vigorously. (Same as: NovoLOG) "single patient use only" WASTE: F/P - Black; E - Municipal Trash Bin Stable for 28 days at room temperature. Expires in days from Date No Longer Active 08/18/2016 [facility] Dextrose 50% Syringe 25 gm, 50 mL, Route: IVP, Drug Form: INJ, Dosing Weight 91.364, kg, PRN, PRN Blood Glucose Results, Start date: 08/18/16 8:40:00 CDT, Duration: 30 day, Stop date: 09/17/16 8:39:00 CDT No Longer Active 08/18/2016 [facility] Glucagon 1 mg, Route: IM, Drug form: PDR/INJ, PRN, Dosing Weight 91.364, kg, PRN Blood Glucose Results, Start date: 08/18/16 8:40:00 CDT, Duration: 30 day, Stop date: 09/17/16 8:39:00 CDT No Longer Active 08/18/2016 [facility] zolpidem 10 mg, Route: PO, Jose g form: TAB, Bedtime, Dosing Weight 91.364, kg, PRN Sleep, Start date: 08/18/16 8:38:00 CDT, Duration: 30 day, Stop date: 09/17/16 8:37:00 CDT Inactive 08/18/2016 [facility] Magnesium Sulfate Notes: WASTE : F/P - Sink; E - Municipal Trash Bin Inactive 08/18/2016 [facility] sodium chloride 0.9% 1000 ml INJ 1,000 mL 1,000 mL, Rate: 125 ml/hr, Infuse over: 8 hr, Route: IV, Dosing Weight 91.364 kg, Total Volume: 1,000, Start date: 08/18/16 1:58:00 CDT, Duration: 30 day, Stop date: 09/17/16 1:57:00 CDT No Longer Active 08/18/2016 [facility] Zofran Notes: (Same as: Zofran ) MEDICATION WASTE Product Size: 4 mg Product Wasted: ___ mg No Longer Active 08/18/2016 [facility] Phenergan Notes: Do not give I V push. (Same as: Phenergan) No Longer Active 08/18/2016 [facility] Morphine Notes: (Same as:MORPh ine Sulfate) No Longer Active 08/18/2016 [facility] Clonazepam 0.5 MG Oral Tablet [Klonopin] 0.5 mg = 1 tab, PO, BID, # 60 tab, 0 Refill(s) Active 08/18/2016 [facility] Morphine 4 mg, Route: IVP, ONC E, Dosing Weight 91.364, kg, Priority: STAT, Start date: 08/17/16 23:55:00 CDT, Stop date: 08/17/16 23:55:00 CDT Inactive 08/18/2016 [facility] Protonix 40 mg, Route: IVP, ON CE, Dosing Weight 91.364, kg, Priority: STAT, Start date: 08/17/16 21:54:00 CDT, Stop date: 08/17/16 21:54:00 CDT Inactive 08/18/2016 [facility] Sodium Chloride 0.154 MEQ/ML Injectable Solution 1,000 mL, Infuse Over: 1 hr, Route: IV, ONCE, Priority: STAT, Dosing Weight 91.364 kg, Start date: 08/17/16 21:54:00 CDT, Duration: 1 doses or times, Stop date: 08/17/16 21:54:00 CDT Inactive 08/18/2016 [facility] Promethazine 12.5 mg, Route: I VPB, ONCE, Dosing Weight 91.364, kg, Priority: STAT, Start date: 08/17/16 21:54:00 CDT, Stop date: 08/17/16 21:54:00 CDT Inactive 08/18/2016 [facility] Zofran 4 mg, Route: IVP, Drug form: INJ, ONCE, Dosing Weight 91.364, kg, Priority: STAT, Start date: 08/17/16 21:16:00 CDT, Stop date: 08/17/16 21:16:00 CDT Inactiv e 08/18/2016 [facility] Sodium Chloride 0.154 MEQ/ML Injectable Solution 1,000 mL, Infuse Over: 1 hr, Route: IV, ONCE, Priority: STAT, Dosing Weight 91.364 kg, Start date: 08/17/16 20:13:00 CDT, Duration: 1 doses or times, Stop date: 08/17/16 20:13:00 CDT Inactive 08/18/2016 [facility] Morphine Notes: (Same as:MORPh ine Sulfate) Inactive 08/18/2016 [facility] Sodium Chloride 0.154 MEQ/ML Injectable Solution 1,000 mL, 1,000 ml/hr, Infuse Over: 1 hr, Route: IV, 1,000, Drug form: INJ, ONCE, Priority: STAT, Dosing Weight 90.2 kg, Start date: 08/17/16 18:26:00 CDT, Duration: 1 doses or times, Stop date: 08/17/16 18:26:00 CDT Inactive 08/17/2016 [facility] Zofran Notes: (Same as: Zofran ) MEDICATION WASTE Product Size: 4 mg Product Wasted: ___ mg Inactive 08/17/2016 [facility] 24 HR venlafaxine 75 MG Extended Release Capsule [Effexor] 75 mg = 1 cap, PO, Daily, # 30 cap, 0 Refill(s) Active 06/20/2016 [facility] venlafaxine Notes: (Same As: E ffexor) Inactive 06/20/2016 [facility] latuda 80mg tab latuda 80mg ta b, 1 tab, Drug form: MISC, Route: PO, Daily, 06/20/16 9:00:00 CDT, Duration: 30 day, Stop date: 07/19/16 9:00:00 CDT Inactive 06/20/2016 [facility] Amlodipine Notes: (Same as: No rvasc) No Longer Active 06/20/2016 [facility] Clonidine Hydrochloride 0.1 MG Oral Tablet Notes: (Same As: Catapres) No Longer Active 06/20/2016 [facility] Latuda 80 mg, Route: PO, Daily , Dosing Weight 90.2, kg, Start date: 06/19/16 19:31:00 CDT, Duration: 30 day, Stop date: 07/19/16 9:00:00 CDT Inactive 06/20/2016 [facility] Tylenol Notes: Do not exceed 4 gm/day. (Same as: Tylenol) No Longer Active 06/19/2016 [facility] Protonix Notes: Tablet should not be chewed or crushed. (Same as: Protonix) No Longer Active 06/19/2016 [facility] Lorazepam Notes: (Same as: Gertrude hdez) Inactive 06/19/2016 [facility] Zofran Notes: (Same as: Zofran ) MEDICATION WASTE Product Size: 4 mg Product Wasted: ___ mg No Longer Active 06/19/2016 [facility] Lurasidone Hydrochloride 80 MG Oral Tablet [Latuda] 80 mg = 1 tab, PO, Daily, 0 Refill(s) Active 06/19/2016 [facility] Losartan Notes: (Same as: Gerardo swanson) No Longer Active 06/19/2016 [facility] Fluoxetine Route: PO, Drug for m: CAP, Daily, Dosing Weight 90.2, kg, Start date: 06/19/16 9:00:00 CDT, Duration: 30 day, Stop date: 07/18/16 9:00:00 CDT Inactive 06/19/2016 [facility] Benztropine Notes: (Same As: Barbra mcleod) No Longer Active 06/19/2016 [facility] pneumococcal capsular polysaccharide typ e 1 vaccine / pneumococcal capsular polysaccharide type 10A vaccine / pneumococcal capsular polysaccharide type 11A vaccine / pneumococcal capsular polysaccharide type 12F vaccine / pneumococcal capsular polysacchar Notes: (Same as: Pneumovax 23) Refrigerate Inactive 06/19/2016 [facility] influenza virus vaccine, inactivated Notes: (Same as: Fluzone Quadrivalent, Fluarix Quadrivalent) For 3 years of age and older (0.5 mL IM) Shake well before use Inactive 06/19/2016 [facility] venlafaxine Notes: (Same As: Candelaria ffexor) Inactive 06/19/2016 [facility] Omeprazole 40 mg, Route: PO, D rug form: DRC, Daily, Dosing Weight 90.2, kg, Start date: 06/19/16 9:00:00 CDT, Duration: 30 day, Stop date: 07/18/16 9:00:00 CDT Inactive 06/19/2016 [facility] metFORMIN extended release Not es: (Same as: Glucophage XR) "Do Not Crush" No Longer Active 06/19/2016 [facility] benztropine 2 mg oral tablet 1 /2 tablet, PO, BID, 0 Refill(s) Active 06/19/2016 [facility] amLODIPine 5 mg oral tablet 5 mg = 1 tab, PO, Bedtime, 0 Refill(s) Active 06/19/2016 [facility] losartan 100 mg oral tablet 10 0 mg = 1 tab, PO, Daily, 0 Refill(s) Active 06/19/2016 [facility] FLUoxetine 20 mg oral capsule 4, PO, Daily, 0 Refill(s) Inactive 06/19/2016 [facility] zolpidem 10 mg oral tablet 10 mg = 1 tab, PO, Bedtime, PRN as needed for sleep, 0 Refill(s) Active 06/19/2016 [facility] metFORMIN extended release 500 mg, PO, Daily, 0 Refill(s) Active 06/19/2016 [facility] venlafaxine 37.5 mg oral tablet, extended release 37.5 mg = 1 tab, PO, Daily, 0 Refill(s) No Longer Active 06/19/2016 [facility] Labetalol Notes: (Same as: Arie lawrence Trandate) Push over 2 minutes Give bolus over 2-3 minutes. Inactive 06/19/2016 [facility] Cardura Notes: (Same as: Maribel suresh) Inactive 06/19/2016 [facility] Hydralazine Notes: (Same as: A presoline) Push over 5 minutes Inactive 06/19/2016 [facility] Prazosin 2 mg, Route: PO, ONCE , Dosing Weight 81.818, kg, Start date: 06/19/16 2:11:00 CDT, Stop date: 06/19/16 2:11:00 CDT Inactive 06/19/2016 [facility] Heparin 40 unit/kg Bolus (Heparin Dosing Weight) Pharmacy To Manage, Route: IVP, PRN, Drug form: INJ, PRN, Heparin Protocol, Start date: 06/19/16 2:06:00 CDT Stop date: 07/19/16 2:05:00 CDT, 30 day Inactive 06/19/2016 [facility] heparin additive 25,000 unit [18 unit/kg /hr] + Premix Diluent Dextrose 5% 500 mL 500 mL, Rate: 29.45 ml/hr, Infuse over: 17 hr, Route: IV, Dosing Weight 81.818 kg, Total Volume: 500 mL, Start date: 06/19/16 2:06:00 CDT, Duration: 30 day, Stop date: 07/19/16 2:05:00 CDT Inactive 06/19/2016 [facility] Heparin - one time bolus for DVT/PE 5,000 unit, Route: IVP, Drug form: INJ, ONCE, Dosing Weight 81.818, kg, Priority: STAT, Start date: 06/19/16 2:06:00 CDT, Stop date: 06/19/16 2:06:00 CDT Inactive 06/19/2016 [facility] Heparin 80 unit/kg Bolus (Heparin Dosing Weight) Pharmacy To Manage, Route: IVP, PRN, Drug form: INJ, PRN, Heparin Protocol, Start date: 06/19/16 2:06:00 CDT Stop date: 07/19/16 2:05:00 CDT, 30 day Inactive 06/19/2016 [facility] Labetalol 20 mg, Route: IVP, D rug form: INJ, ONCE, Dosing Weight 81.818, kg, Priority: STAT, Start date: 06/19/16 1:54:00 CDT, Stop date: 06/19/16 1:54:00 CDT Inactive 06/19/2016 [facility] Lorazepam 1 mg, Route: IVP, Dr ug form: INJ, ONCE, Dosing Weight 81.818, kg, Priority: STAT, Start date: 06/19/16 1:54:00 CDT, Stop date: 06/19/16 1:54:00 CDT Inactive 06/19/2016 [facility] Hydralazine Notes: (Same as: A presoline) Push over 5 minutes No Longer Active 06/19/2016 [facility] Saline Flush 0.9% Notes: (Same as: BD Posiflush) No Longer Active 06/19/2016 [facility] Ondansetron 4 MG Oral Tablet [Zofran] 4 mg = 1 tab, PO, BID, X 5 day, # 10 tab, 0 Refill(s) Active 06/07/2016 [facility] tramadol hydrochloride 50 MG Oral Tablet [Ultram] 50 mg = 1 tab, PO, Q4H, PRN pain, X 3 day, # 20 tab, 0 Refill(s) Active 06/07/2016 [facility] Zofran Notes: (Same as: Zofran ) MEDICATION WASTE Product Size: 4 mg Product Wasted: ___ mg Inactive 06/07/2016 [facility] Morphine Notes: (Same as:MORPh ine Sulfate) Inactive 06/07/2016 [facility] omeprazole 40 mg oral delayed release capsule 40 mg = 1 cap, PO, Daily, # 30 cap, 1 Refill(s) Active 01/19/2016 [facility] promethazine 25 mg oral tablet 25 mg = 1 tab, PO, Q8H, PRN Nausea/Vomiting, X 10 day, # 30 tab, 1 Refill(s) Active 01/19/2016 [facility] GI cocktail 30 mL, Route: PO, Dosing Weight 100, kg, ONCE, STAT, Start date: 01/19/16 6:27:00 CDT, Stop date: 01/19/16 6:27:00 CDT Inactive 01/19/2016 [facility] Zofran 8 mg, Route: IV, ONCE, Dosing Weight 100, kg, Start date: 01/19/16 6:20:00 CDT, Stop date: 01/19/16 6:20:00 CDT Inactive 01/19/2016 [facility] sodium chloride 0.9% INJ 250 mL 250 mL, Rate: [facility] for use with blood product administration., Dosing Weight 100, kg, Route: IV, Total Volume: 250, Priority: Routine, Start Date: 01/19/16 2:13:00 CDT, Duration: 1 day, Stop date: 01/20/16 2:12:00 CDT, Replace Every: 24 hr Inactive 01/19/2016 [facility] Morphine 4 mg, Route: IVP, ONC E, Dosing Weight 100, kg, Priority: STAT, Start date: 01/19/16 2:13:00 CDT, Stop date: 01/19/16 2:13:00 CDT Inactive 01/19/2016 [facility] Ondansetron 4 mg, Route: IVP, ONCE, Dosing Weight 100, kg, Priority: STAT, Start date: 01/19/16 2:13:00 CDT, Stop date: 01/19/16 2:13:00 CDT Inactive 01/19/2016 [facility] pantoprazole 80 mg, Route: IVP , ONCE, Dosing Weight 100, kg, For IV push reconstitute with 10 ml 0.9% sodium chloride and push over at least 3 minutes, Priority: STAT, Start date: 01/19/16 2:13:00 CDT, Stop date: 01/19/16 2:13:00 CDT Inactive 01/19/2016 [facility] Sodium Chloride 0.154 MEQ/ML Injectable Solution 1,000 mL, 2,000 ml/hr, Infuse Over: 30 minutes, Route: IV, ONCE, Priority: STAT, Dosing Weight 100 kg, Start date: 01/19/16 2:13:00 CDT, Duration: 1 doses or times, Stop date: 01/19/16 2:13:00 CDT Inactive 01/19/2016 [facility] Saline Flush 0.9% Notes: (Same as: BD Posiflush) Inactive 01/19/2016 [facility] Ketorolac Tromethamine 10 MG Oral Tablet 10 mg = 1 tab, PO, Q6H, X 5 day, # 20 tab, 0 Refill(s) Active 09/08/2014 [facility] Ketorolac 4 days MEDICA TION WASTE Product Size: 30 mg Product Wasted: _15__ mg Inactive 09/08/2014 [facility] Zofran 4 mg, Route: IVP, Drug form: INJ, ONCE, Dosing Weight 109.091, kg, Priority: STAT, Start date: 09/08/14 16:35:00, Stop date: 09/08/14 16:35:00 Inactive 09/08/2014 [facility] Morphine 4 mg, Route: IVP, Jose g form: INJ, ONCE, Dosing Weight 109.091, kg, Priority: STAT, Start date: 09/08/14 16:35:00, Stop date: 09/08/14 16:35:00 Inactive 09/08/2014 [facility] Saline Flush 0.9% Notes: (Same as: BD Posiflush) Inactive 09/08/2014 [facility] Allergies, Adverse Reactions, Alerts Substance Category Reaction Severity Reaction type Status Date Reported Comments Source lisinopril Assertion Drug allergy Active [facility] Immunizations Immunization Date Given Site Status Last Updated Comments Source pneumococcal 23-valent vaccine 06/19/2016 Right deltoid completed [facility] influenza virus vaccine, inactivated 06/19/2016 Left deltoid completed [facility] Results Order Name Results Value Reference Range Date Interpretation Comments Source SPECIAL CHEMISTRY Hgb A1C 11.7 <=5.6 % 12/06/2018 [facility] BLOOD BANK RESULTS ABO/Rh A POS 12/06/2018 [facility] BLOOD BANK RESULTS Antibody Scrn Negative (12/06/18 12:44 PM) 12/06/2018 [facility] ELECTROLYTES AGAP 10.6 10.0 - 20.0 12/06/2018 [facility] ELECTROLYTES B/C Ratio 15 6 - 25 12/06/2018 [facility] ELECTROLYTES Globulin 3.7 2.7 - 4.2 12/06/2018 [facility] ELECTROLYTES A/G Ratio 0.9 0.7 - 1.6 12/06/2018 [facility] ELECTROLYTES Glucose Lvl 291 70 - 99 12/06/2018 [facility] ELECTROLYTES BUN 19 7 - 22 12/06/2018 [facility] ELECTROLYTES Creatinine Lvl 1.2 9 0.50 - 1.40 12/06/2018 [facility] ELECTROLYTES Sodium Lvl 139 135 - 145 12/06/2018 [facility] ELECTROLYTES Potassium Lvl 4.6 3.5 - 5.1 12/06/2018 [facility] ELECTROLYTES Chloride Lvl 105 95 - 109 12/06/2018 [facility] ELECTROLYTES CO2 28 24 - 32 12/06/2018 [facility] ELECTROLYTES Calcium Lvl 9.0 8.5 - 10.5 12/06/2018 [facility] ELECTROLYTES Total Protein 7.1 6.4 - 8.4 12/06/2018 [facility] ELECTROLYTES Albumin Lvl 3.4 3.5 - 5.0 12/06/2018 [facility] ELECTROLYTES ALT 25 0 - 65 12/06/2018 [facility] ELECTROLYTES AST 11 0 - 37 12/06/2018 [facility] ELECTROLYTES Alk Phos 113 39 - 136 12/06/2018 [facility] ELECTROLYTES Bili Total 0.4 0.2 - 1.3 12/06/2018 [facility] ELECTROLYTES eGFR 49 12/06/2018 Result Comment: The [...] should be multiplied by the estimated BMI. [facility] HEMATOLOGY WBC 4.4 3.7 - 10.4 12/06/2018 [facility] HEMATOLOGY RBC 3.74 4.20 - 5.40 12/06/2018 [facility] HEMATOLOGY Hgb 11.2 12.0 - 16.0 12/06/2018 [facility] HEMATOLOGY Hct 34.1 36.0 - 48.0 12/06/2018 [facility] MCV 91.2 80.0 - 98.0 12/06/2018 [facility] MCH 30.0 27.0 - 31.0 12/06/2018 [facility] MCHC 32.9 32.0 - 36.0 12/06/2018 [facility] HEMATOLOGY RDW 17.6 11.5 - 14.5 12/06/2018 [facility] Platelet 183 133 - 450 12/06/2018 [facility] HEMATOLOGY MPV 8.8 7.4 - 10.4 12/06/2018 [facility] HEMATOLOGY PT 11.8 12.0 - 14.7 12/06/2018 [facility] HEMATOLOGY INR 0.88 0.85 - 1.17 12/06/2018 [facility] HEMATOLOGY PTT 31.5 22.9 - 35.8 12/06/2018 [facility] HEMATOLOGY Segs 65.1 45.0 - 75.0 12/06/2018 [facility] Lymphocytes 27.4 20.0 - 40.0 12/06/2018 [facility] Monocytes 6.0 2.0 - 12.0 12/06/2018 [facility] HEMATOLOGY Eosinophils 1.0 0.0 - 4.0 12/06/2018 [facility] HEMATOLOGY Basophils 0.5 0.0 - 1.0 12/06/2018 [facility] Neutrophils # 2.9 1.5 - 8.1 12/06/2018 [facility] Lymphocytes # 1.2 1.0 - 5.5 12/06/2018 [facility] Monocytes # 0.3 0.0 - 0.8 12/06/2018 [facility] URINE AND STOOL UA Bili Negative *NA* (02/22/18 3:31 PM) Negative 02/22/2018 [facility] URINE AND STOOL UA Nitrite Negative (02/22/18 3:31 PM) Negative 02/22/2018 [facility] URINE AND STOOL UA Blood Negative (02/22/18 3:31 PM) Negative 02/22/2018 [facility] URINE AND STOOL UA Leuk Est Negative (02/22/18 3:31 PM) Negative 02/22/2018 [facility] URINE AND STOOL UA Urobilinogen <=1.0 mg/dL 0.1 - 1.0 02/22/2018 [facility] URINE AND STOOL UA Sq Epi Occasional /LPF Few /LPF 02/22/2018 [facility] URINE AND STOOL UA WBC 1 0 - 5 02/22/2018 [facility] URINE AND STOOL UA RBC 1 0 - 2 02/22/2018 [facility] URINE AND STOOL UA Color Ltyellow 02/22/2018 [facility] URINE AND STOOL UA Turbidity Clear (02/22/18 3:31 PM) Clear 02/22/2018 [facility] URINE AND STOOL UA Spec Grav 1.026 <=1.030 02/22/2018 [facility] URINE AND STOOL UA Glucose 500 mg/dL Negative mg/dL 02/22/2018 [facility] URINE AND STOOL UA pH 5.0 5.0 - 8.0 02/22/2018 [facility] URINE AND STOOL UA Ketones Negative *NA* (02/22/18 3:31 PM) Negative 02/22/2018 [facility] URINE AND STOOL UA Protein 100 mg/dL Negative mg/dL 02/22/2018 [facility] CARDIAC ENZYMES Troponin-I <0.02 0.00 - 0.40 02/22/2018 [facility] CARDIAC ENZYMES BNP 65 <=100 pg/mL 02/22/2018 [facility] CHEM PANEL Lipase Lvl 359 73 - 393 02/22/2018 [facility] CHEM PANEL Globulin 4.2 2.7 - 4.2 02/22/2018 [facility] CHEM PANEL B/C Ratio 20 6 - 25 02/22/2018 [facility] CHEM PANEL AGAP 17.4 10.0 - 20.0 02/22/2018 [facility] CHEM PANEL A/G Ratio 0.8 0.7 - 1.6 02/22/2018 [facility] CHEM PANEL eGFR 48 02/22/2018 Result Comment: [...] should be multiplied by the estimated BMI. [facility] CHEM PANEL Alk Phos 116 39 - 136 02/22/2018 [facility] CHEM PANEL Bili Total 0.5 0.2 - 1.3 02/22/2018 [facility] CHEM PANEL AST 25 0 - 37 02/22/2018 [facility] CHEM PANEL ALT 47 0 - 65 02/22/2018 [facility] CHEM PANEL Albumin Lvl 3.2 3.5 - 5.0 02/22/2018 [facility] CHEM PANEL Total Protein 7.4 6.4 - 8.4 02/22/2018 [facility] CHEM PANEL Calcium Lvl 9.0 8.5 - 10.5 02/22/2018 [facility] CHEM PANEL Chloride Lvl 101 95 - 109 02/22/2018 [facility] CHEM PANEL CO2 18 24 - 32 02/22/2018 [facility] CHEM PANEL Potassium Lvl 4.4 3.5 - 5.1 02/22/2018 [facility] CHEM PANEL Creatinine Lvl 1.32 0.50 - 1.40 02/22/2018 [facility] CHEM PANEL Sodium Lvl 132 135 - 145 02/22/2018 [facility] CHEM PANEL BUN 27 7 - 22 02/22/2018 [facility] CHEM PANEL Glucose Lvl 379 70 - 99 02/22/2018 [facility] CHEM PANEL VITAMIN B1 (THIAMINE) WHO LE BLOOD 107.0 66.5 - 200.0 02/22/2018 Result Comment:
This t est was developed and its performance characteristics
determined by [employer]. It has not been cleared or
approved by the Food and Drug Administration .
Performed At: [facility]
[address] [place] [id number]
Bryan Lunsford MD Ph:[phone] [facility] Basophils 0.3 0.0 - 1.0 02/22/2018 [facility] Neutrophils # 7.1 1.5 - 8.1 02/22/2018 [facility] HEMATOLOGY Lymphocytes # 1.4 1.0 - 5.5 02/22/2018 [facility] HEMATOLOGY Lymphocytes 15.0 20.0 - 40.0 02/22/2018 [facility] HEMATOLOGY Monocytes 5.9 2.0 - 12.0 02/22/2018 [facility] Monocytes # 0.5 0.0 - 0.8 02/22/2018 [facility] HEMATOLOGY Eosinophils 0.2 0.0 - 4.0 02/22/2018 [facility] RBC Morph Keisha l (02/22/18 2:21 PM) 02/22/2018 [facility] HEMATOLOGY Segs 78.6 45.0 - 75.0 02/22/2018 [facility] HEMATOLOGY Plt Morph See N ote 2 (02/22/18 2:21 PM) 02/22/2018 Result Comment: Due to occassional clumps, the actual count may be slightly higher. 02/22/2018 19:19 iko [facility] HEMATOLOGY Hct 38.7 36.0 - 48.0 02/22/2018 [facility] MCH 30.8 27.0 - 31.0 02/22/2018 [facility] HEMATOLOGY MCV 90.4 80.0 - 98.0 02/22/2018 [facility] MCHC 34.1 32.0 - 36.0 02/22/2018 [facility] RDW 16.8 11.5 - 14.5 02/22/2018 [facility] Platelet 149 133 - 450 02/22/2018 [facility] MPV 9.3 7.4 - 10.4 02/22/2018 [facility] WBC 9.0 3.7 - 10.4 02/22/2018 [facility] Hgb 13.2 12.0 - 16.0 02/22/2018 [facility] RBC 4.27 4.20 - 5.40 02/22/2018 [facility] VIRAL - SEROLOGY Influ B Negative (01/17/17 4:52 PM) Negative 01/17/2017 [facility] VIRAL - SEROLOGY Influ A Negative (01/17/17 4:52 PM) Negative 01/17/2017 [facility] BLOOD BANK RESULTS ABO/Rh A POS 01/17/2017 [facility] BLOOD BANK RESULTS Antibody Scrn Negative (01/17/17 4:21 PM) 01/17/2017 [facility] CHEM PANEL Lipase Lvl 144 73 - 393 01/17/2017 [facility] CHEM PANEL Amylase Lvl 110 25 - 115 01/17/2017 [facility] CHEM PANEL A/G Ratio 0.9 0.7 - 1.6 01/17/2017 [facility] CHEM PANEL Globulin 4.7 2.7 - 4.2 01/17/2017 [facility] CHEM PANEL AGAP 12.9 10.0 - 20.0 01/17/2017 [facility] CHEM PANEL B/C Ratio 13 6 - 25 01/17/2017 [facility] CHEM PANEL Total Protein 9.0 6.4 - 8.4 01/17/2017 [facility] CHEM PANEL Calcium Lvl 9.4 8.5 - 10.5 01/17/2017 [facility] CHEM PANEL CO2 24 24 - 32 [...] Glucose Lvl 64 70 - 99 01/17/2017 [facility] CHEM PANEL Creatinine Lvl 1.20 0.50 - 1.40 01/17/2017 [facility] CHEM PANEL BUN 16 7 - 22 01/17/2017 [facility] CHEM PANEL Sodium Lvl 138 135 - 145 01/17/2017 [facility] HEMATOLOGY Segs-Bands # 4.9 1.5 - 8.1 01/17/2017 [facility] HEMATOLOGY Basophils 0.5 0.0 - 1.0 01/17/2017 [facility] HEMATOLOGY Monocytes 5.2 2.0 - 12.0 01/17/2017 [facility] HEMATOLOGY Eosinophils 0.9 0.0 - 4.0 01/17/2017 [facility] HEMATOLOGY Lymphocytes 28.1 20.0 - 40.0 01/17/2017 [facility] HEMATOLOGY Segs 65.3 45.0 - 75.0 01/17/2017 [facility] HEMATOLOGY Lymphocytes # 2.1 1.0 - 5.5 01/17/2017 [facility] HEMATOLOGY Monocytes # 0.4 0.0 - 0.8 01/17/2017 [facility] HEMATOLOGY Eosinophils # 0.1 0.0 - 0.5 01/17/2017 [facility] HEMATOLOGY RBC Morph Keisha l (01/17/17 4:21 PM) 01/17/2017 [facility] HEMATOLOGY Plt Morph Keisha l (01/17/17 4:21 PM) 01/17/2017 [facility] MCH 27.1 27.0 - 31.0 01/17/2017 [facility] MCHC 32.6 32.0 - 36.0 01/17/2017 [facility] MPV 9.2 7.4 - 10.4 01/17/2017 [facility] MCV 83.2 80.0 - 98.0 01/17/2017 [facility] Hct 41.6 36.0 - 48.0 01/17/2017 [facility] Hgb 13.6 12.0 - 16.0 01/17/2017 [facility] HEMATOLOGY Platelet 169 133 - 450 01/17/2017 [facility] RDW 17.1 11.5 - 14.5 01/17/2017 [facility] RBC 5.00 4.20 - 5.40 01/17/2017 [facility] HEMATOLOGY WBC 7.6 3.7 - 10.4 01/17/2017 [facility] URINE AND STOOL UA Blood Negative (01/17/17 4:21 PM) Negative 01/17/2017 [facility] URINE AND STOOL UA Nitrite Negative (01/17/17 4:21 PM) Negative 01/17/2017 [facility] URINE AND STOOL UA Leuk Est Negative (01/17/17 4:21 PM) Negative 01/17/2017 [facility] URINE AND STOOL UA Sq Epi Occasional /LPF Few /LPF 01/17/2017 [facility] URINE AND STOOL UA RBC 2 0 - 2 01/17/2017 [facility] URINE AND STOOL UA Bacteria Occasional /HPF None Seen /HPF 01/17/[address] [facility] [address] URINE AND STOOL UA Color Ltyellow 01/17/2017 [facility] URINE AND STOOL UA WBC 2 0 - 5 01/17/2017 [facility] URINE AND STOOL UA Glucose Negative mg/dL Negative mg/dL 01/17/[address] [facility] [address] URINE AND STOOL UA Ketones Negative mg/dL Negative mg/dL 01/17/2017 [facility] URINE AND STOOL UA Bili Negative *NA* (01/17/17 4:21 PM) Negative 01/17/2017 [facility] URINE AND STOOL UA Urobilinogen <=1.0 mg/dL 0.1 - 1.0 01/17/2017 [facility] URINE AND STOOL UA pH 7.0 5.0 - 8.0 01/17/2017 [facility] URINE AND STOOL UA Protein Negative mg/dL Negative mg/dL 01/17/2017 [facility] URINE AND STOOL UA Turbidity Clear (01/17/17 4:21 PM) Clear 01/17/2017 [facility] URINE AND STOOL UA Spec Grav 1.006 <=1.030 01/17/2017 [facility] URINE CHEM U Preg Negat adan (01/17/17 4:21 PM) Negative 01/17/2017 [facility] CHEM PANEL Creatinine Lvl 2.00 0.50 - 1.40 09/10/2016 [facility] CHEM PANEL BUN 32 7 - 22 09/10/2016 [facility] CHEM PANEL Sodium Lvl 139 135 - 145 09/10/2016 [facility] CHEM PANEL Chloride Lvl 107 95 - 109 09/10/2016 [facility] CHEM PANEL Potassium Lvl 4.1 3.5 - 5.1 09/10/2016 [facility] CHEM PANEL Glucose Lvl 151 70 - 99 09/10/2016 [facility] CHEM PANEL AGAP 14.1 10.0 - 20.0 09/10/2016 [facility] CHEM PANEL CO2 22 24 - 32 09/10/2016 [facility] CHEM PANEL Calcium Lvl 8.7 8.5 - 10.5 09/10/2016 [facility] CHEM PANEL eGFR 29 09/10/2016 Result Comment: [...] should be multiplied by the estimated BMI. [facility] HEMATOLOGY MPV 9.9 7.4 - 10.4 09/10/2016 [facility] RBC 4.28 4.20 - 5.40 09/10/2016 [facility] WBC 6.4 3.7 - 10.4 09/10/2016 [facility] Hgb 8.8 12.0 - 16.0 09/10/2016 [facility] HEMATOLOGY Hct 29.1 36.0 - 48.0 09/10/2016 [facility] MCV 67.9 80.0 - 98.0 09/10/2016 [facility] MCH 20.6 27.0 - 31.0 09/10/2016 [facility] Platelet 182 133 - 450 09/10/2016 [facility] MCHC 30.3 32.0 - 36.0 09/10/2016 [facility] RDW 18.6 11.5 - 14.5 09/10/2016 [facility] URINE AND STOOL UA Bili Negative *NA* (09/10/16 3:06 AM) Negative 09/10/2016 [facility] URINE AND STOOL UA WBC 5 0 - 5 09/10/2016 [facility] URINE AND STOOL UA Leuk Est Trace *ABN* (09/10/16 3:06 AM) Negative 09/10/2016 [facility] URINE AND STOOL UA Sq Epi Few /LPF Few /LPF 09/10/2016 [facility] URINE AND STOOL UA Blood Negative (09/10/16 3:06 AM) Negative 09/10/2016 [facility] URINE AND STOOL UA Nitrite Negative (09/10/16 3:06 AM) Negative 09/10/2016 [facility] URINE AND STOOL UA RBC <1 0 - 2 09/10/2016 [facility] URINE AND STOOL UA Bacteria Occasional /HPF None Seen /HPF 09/10/2016 [facility] URINE AND STOOL UA Urobilinogen <=1.0 mg/dL 0.1 - 1.0 09/10/2016 [facility] URINE AND STOOL UA Color Ltyellow 09/10/2016 [facility] URINE AND STOOL UA Protein Negative mg/dL Negative mg/dL 09/10/2016 [facility] URINE AND STOOL UA Spec Grav 1.009 <=1.030 09/10/2016 [facility] URINE AND STOOL UA pH 5.0 5.0 - 8.0 09/10/2016 [facility] URINE AND STOOL UA Glucose Negative mg/dL Negative mg/dL 09/10/[address] [facility] [address] URINE AND STOOL UA Ketones Negative mg/dL Negative mg/dL 09/10/[address] [facility] [address] URINE AND STOOL UA Turbidity Clear (09/10/16 3:06 AM) Clear 09/10/2016 [facility] URINE CHEM U Eos None Seen (09/10/16 3:06 AM) None Seen 09/10/2016 [facility] URINE CHEM U Urea 472 09/10/2016 [facility] URINE CHEM U Sodium 48 09/10/2016 [facility] URINE CHEM U Microalb 21.5 09/10/2016 [facility] URINE CHEM U Creatinine 120.00 09/10/2016 [facility] URINE CHEM U Alb/Crea 17.9 <=30.0 mcg/mg creat 09/10/2016 [facility] CHEM PANEL eGFR 25 09/09/2016 Result Comment: [...] should be multiplied by the estimated BMI. [facility] CHEM PANEL CO2 22 24 - 32 09/09/2016 [facility] CHEM PANEL Creatinine Lvl 2.30 0.50 - 1.40 09/09/2016 [facility] CHEM PANEL Potassium Lvl 5.1 3.5 - 5.1 09/09/2016 [facility] CHEM PANEL Chloride Lvl 106 95 - 109 09/09/2016 [facility] CHEM PANEL AGAP 14.1 10.0 - 20.0 09/09/2016 [facility] CHEM PANEL Calcium Lvl 8.2 8.5 - 10.5 09/09/2016 [facility] CHEM PANEL BUN 29 7 - 22 09/09/2016 [facility] CHEM PANEL Sodium Lvl 137 135 - 145 09/09/2016 [facility] CHEM PANEL Glucose Lvl 354 70 - 99 09/09/2016 [facility] HEMATOLOGY MPV 9.6 7.4 - 10.4 09/09/2016 [facility] HEMATOLOGY Platelet 187 133 - 450 09/09/2016 [facility] MCHC 30.5 32.0 - 36.0 09/09/2016 [facility] HEMATOLOGY RDW 18.5 11.5 - 14.5 09/09/2016 [facility] Hgb 7.4 12.0 - 16.0 09/09/2016 [facility] RBC 3.59 4.20 - 5.40 09/09/2016 [facility] MCH 20.7 27.0 - 31.0 09/09/2016 [facility] Hct 24.4 36.0 - 48.0 09/09/2016 [facility] MCV 67.9 80.0 - 98.0 09/09/2016 [facility] WBC 6.8 3.7 - 10.4 09/09/2016 [facility] ELECTROLYTES AGAP 11.5 10.0 - 20.0 09/09/2016 [facility] ELECTROLYTES Glucose Lvl 175 70 - 99 09/09/2016 [facility] ELECTROLYTES Sodium Lvl 140 135 - 145 09/09/2016 [facility] ELECTROLYTES Creatinine Lvl 1.9 0 0.50 - 1.40 09/09/2016 [facility] ELECTROLYTES BUN 25 7 - 22 09/09/2016 [facility] ELECTROLYTES Chloride Lvl 108 95 - 109 09/09/2016 [facility] ELECTROLYTES Potassium Lvl 4.5 3.5 - 5.1 09/09/2016 [facility] ELECTROLYTES eGFR 31 09/09/2016 Result Comment: The [...] should be multiplied by the estimated BMI. [facility] ELECTROLYTES CO2 25 24 - 32 09/09/2016 [facility] ELECTROLYTES Calcium Lvl 8.7 8.5 - 10.5 09/09/2016 [facility] ELECTROLYTES Sodium Lvl 140 135 - 145 09/09/2016 [facility] ELECTROLYTES Creatinine Lvl 1.9 0 0.50 - 1.40 09/09/2016 [facility] ELECTROLYTES eGFR 31 09/09/2016 Result Comment: The [...] should be multiplied by the estimated BMI. [facility] ELECTROLYTES AGAP 13.5 10.0 - 20.0 09/09/2016 [facility] ELECTROLYTES CO2 25 24 - 32 09/09/2016 [facility] ELECTROLYTES Chloride Lvl 106 95 - 109 09/09/2016 [facility] ELECTROLYTES Calcium Lvl 8.5 8.5 - 10.5 09/09/2016 [facility] ELECTROLYTES Potassium Lvl 4.5 3.5 - 5.1 09/09/2016 [facility] ELECTROLYTES Glucose Lvl 173 70 - 99 09/09/2016 [facility] ELECTROLYTES BUN 25 7 - 22 09/09/2016 [facility] HEMATOLOGY Microcyte 3+ *NA* (09/09/16 3:11 AM) None Seen 09/09/2016 [facility] HEMATOLOGY Monocytes # 0.5 0.0 - 0.8 09/09/2016 [facility] HEMATOLOGY Lymphocytes # 1.0 1.0 - 5.5 09/09/2016 [facility] HEMATOLOGY Segs-Bands # 5.6 1.5 - 8.1 09/09/2016 [facility] HEMATOLOGY Basophils 0.4 0.0 - 1.0 09/09/2016 [facility] HEMATOLOGY Eosinophils 0.2 0.0 - 4.0 09/09/2016 [facility] HEMATOLOGY Lymphocytes 14.5 20.0 - 40.0 09/09/2016 [facility] HEMATOLOGY Monocytes 7.1 2.0 - 12.0 09/09/2016 [facility] HEMATOLOGY Segs 77.8 45.0 - 75.0 09/09/2016 [facility] Platelet 187 133 - 450 09/09/2016 [facility] MPV 9.4 7.4 - 10.4 09/09/2016 [facility] HEMATOLOGY MCV 67.5 80.0 - 98.0 09/09/2016 [facility] RDW 18.2 11.5 - 14.5 09/09/2016 [facility] MCH 20.7 27.0 - 31.0 09/09/2016 [facility] MCHC 30.6 32.0 - 36.0 09/09/2016 [facility] HEMATOLOGY RBC 3.95 4.20 - 5.40 09/09/2016 [facility] Hct 26.6 36.0 - 48.0 09/09/2016 [facility] Hgb 8.2 12.0 - 16.0 09/09/2016 [facility] WBC 7.2 3.7 - 10.4 09/09/2016 [facility] CHEM PANEL Globulin 4.2 2.7 - 4.2 09/08/2016 [facility] CHEM PANEL A/G Ratio 1.0 0.7 - 1.6 09/08/2016 [facility] CHEM PANEL B/C Ratio 16 6 - 25 09/08/2016 [facility] CHEM PANEL Alk Phos 123 39 - 136 09/08/2016 [facility] CHEM PANEL AST 9 0 - 37 09/08/2016 [facility] CHEM PANEL Bili Total 0.5 0.2 - 1.3 09/08/2016 [facility] CHEM PANEL Albumin Lvl 4.3 3.5 - 5.0 09/08/2016 [facility] CHEM PANEL Total Protein 8.5 6.4 - 8.4 09/08/2016 [facility] CHEM PANEL ALT 13 0 - 65 09/08/2016 [facility] CHEM PANEL Lipase Lvl 96 73 - 393 09/08/2016 [facility] ENDOCRINOLOGY S Preg Ne gative *NA* (09/08/16 1:07 AM) Negative 09/08/2016 [facility] HEMATOLOGY Microcyte 3+ *NA* (09/08/16 1:07 AM) None Seen 09/08/2016 [facility] HEMATOLOGY Monocytes # 0.1 0.0 - 0.8 09/08/2016 [facility] HEMATOLOGY Lymphocytes # 0.5 1.0 - 5.5 09/08/2016 [facility] HEMATOLOGY Monocytes 1.5 2.0 - 12.0 09/08/2016 [facility] HEMATOLOGY Lymphocytes 6.2 20.0 - 40.0 09/08/2016 [facility] HEMATOLOGY Segs-Bands # 7.4 1.5 - 8.1 09/08/2016 [facility] HEMATOLOGY Basophils 0.2 0.0 - 1.0 09/08/2016 [facility] HEMATOLOGY Segs 92.1 45.0 - 75.0 09/08/2016 [facility] URINE AND STOOL UA Leuk Est Negative (09/08/16 1:07 AM) Negative 09/08/2016 [facility] URINE AND STOOL UA Nitrite Negative (09/08/16 1:07 AM) Negative 09/08/2016 [facility] URINE AND STOOL UA Blood Small *ABN* (09/08/16 1:07 AM) Negative 09/08/2016 [facility] URINE AND STOOL UA Bili Negative *NA* (09/08/16 1:07 AM) Negative 09/08/2016 [facility] URINE AND STOOL UA Sq Epi Occasional /LPF Few /LPF 09/08/2016 [facility] URINE AND STOOL UA Glucose 500 mg/dL Negative mg/dL 09/08/2016 [facility] URINE AND STOOL UA Protein 30 mg/dL Negative mg/dL 09/08/2016 [facility] URINE AND STOOL UA pH 5.0 5.0 - 8.0 09/08/2016 [facility] URINE AND STOOL UA Ketones 20 mg/dL Negative mg/dL 09/08/2016 [facility] URINE AND STOOL UA Spec Grav 1.012 <=1.030 09/08/2016 [facility] URINE AND STOOL UA Turbidity Clear (09/08/16 1:07 AM) Clear 09/08/2016 [facility] URINE AND STOOL UA Urobilinogen <=1.0 mg/dL 0.1 - 1.0 09/08/2016 [facility] URINE AND STOOL UA Hyal Cast 1 0 - 2 09/08/2016 [facility] URINE AND STOOL UA RBC 3 0 - 2 09/08/2016 [facility] URINE AND STOOL UA WBC 2 0 - 5 09/08/2016 [facility] URINE AND STOOL UA Color Ltyellow 09/08/2016 [facility] CHEM PANEL eGFR 70 08/20/2016 Result Comment: [...] should be multiplied by the estimated BMI. [facility] CHEM PANEL ALT 179 0 - 65 08/20/2016 [facility] CHEM PANEL Albumin Lvl 3.4 3.5 - 5.0 08/20/2016 [facility] CHEM PANEL Total Protein 6.6 6.4 - 8.4 08/20/2016 [facility] CHEM PANEL Calcium Lvl 8.5 8.5 - 10.5 08/20/2016 [facility] CHEM PANEL CO2 22 24 - 32 08/20/2016 [facility] CHEM PANEL Chloride Lvl 108 95 - 109 08/20/2016 [facility] CHEM PANEL Alk Phos 184 39 - 136 08/20/2016 [facility] CHEM PANEL AST 81 0 - 37 08/20/2016 [facility] CHEM PANEL Bili Total 0.6 0.2 - 1.3 08/20/2016 [facility] CHEM PANEL Sodium Lvl 141 135 - 145 08/20/2016 [facility] CHEM PANEL BUN 10 7 - 22 08/20/2016 [facility] CHEM PANEL Glucose Lvl 153 70 - 99 08/20/2016 [facility] CHEM PANEL Potassium Lvl 4.2 3.5 - 5.1 08/20/2016 [facility] CHEM PANEL Creatinine Lvl 0.97 0.50 - 1.40 08/20/2016 [facility] CHEM PANEL A/G Ratio 1.1 0.7 - 1.6 08/20/2016 [facility] CHEM PANEL Globulin 3.2 2.7 - 4.2 08/20/2016 [facility] CHEM PANEL B/C Ratio 10 6 - 25 08/20/2016 [facility] CHEM PANEL AGAP 15.2 10.0 - 20.0 08/20/2016 [facility] HEMATOLOGY MCHC 30.3 32.0 - 36.0 08/20/2016 [facility] HEMATOLOGY MCH 20.3 27.0 - 31.0 08/20/2016 [facility] HEMATOLOGY MCV 67.2 80.0 - 98.0 08/20/2016 [facility] HEMATOLOGY Hct 27.7 36.0 - 48.0 08/20/2016 [facility] HEMATOLOGY Hgb 8.4 12.0 - 16.0 08/20/2016 [facility] HEMATOLOGY RBC 4.13 4.20 - 5.40 08/20/2016 [facility] HEMATOLOGY MPV 9.5 7.4 - 10.4 08/20/2016 [facility] HEMATOLOGY Platelet 208 133 - 450 08/20/2016 [facility] HEMATOLOGY RDW 17.7 11.5 - 14.5 08/20/2016 [facility] HEMATOLOGY WBC 6.5 3.7 - 10.4 08/20/2016 [facility] HEMATOLOGY INR 1.05 0.85 - 1.17 08/20/2016 [facility] HEMATOLOGY PTT 28.8 22.9 - 35.8 08/20/2016 [facility] HEMATOLOGY PT 13.9 12.0 - 14.7 08/20/2016 [facility] HEMATOLOGY Hct 27.7 36.0 - 48.0 08/20/2016 [facility] HEMATOLOGY Hgb 8.4 12.0 - 16.0 08/20/2016 [facility] HEMATOLOGY WBC 6.5 3.7 - 10.4 08/20/2016 [facility] HEMATOLOGY RBC 4.13 4.20 - 5.40 08/20/2016 [facility] HEMATOLOGY Platelet 208 133 - 450 08/20/2016 [facility] HEMATOLOGY MPV 9.5 7.4 - 10.4 08/20/2016 [facility] HEMATOLOGY MCHC 30.3 32.0 - 36.0 08/20/2016 [facility] HEMATOLOGY MCV 67.2 80.0 - 98.0 08/20/2016 [facility] HEMATOLOGY RDW 17.7 11.5 - 14.5 08/20/2016 [facility] HEMATOLOGY MCH 20.3 27.0 - 31.0 08/20/2016 [facility] HEMATOLOGY Segs-Bands # 4.4 1.5 - 8.1 08/20/2016 [facility] HEMATOLOGY Basophils 0.6 0.0 - 1.0 08/20/2016 [facility] HEMATOLOGY Eosinophils 0.7 0.0 - 4.0 08/20/2016 [facility] HEMATOLOGY Monocytes 8.1 2.0 - 12.0 08/20/2016 [facility] HEMATOLOGY Lymphocytes 23.2 20.0 - 40.0 08/20/2016 [facility] HEMATOLOGY Microcyte 3+ *NA* (08/20/16 4:47 AM) None Seen 08/20/2016 [facility] HEMATOLOGY Monocytes # 0.5 0.0 - 0.8 08/20/2016 [facility] HEMATOLOGY Lymphocytes # 1.5 1.0 - 5.5 08/20/2016 [facility] HEMATOLOGY Segs 67.4 45.0 - 75.0 08/20/2016 [facility] ANEMIA STUDY Vitamin B12 Lvl 259 254 - 1320 08/19/2016 [facility] ANEMIA STUDY Ferritin Lvl 6 5 - 204 08/19/2016 [facility] ANEMIA STUDY Folate Lvl 11.3 >=3.0 ng/mL 08/19/2016 [facility] ANEMIA STUDY UIBC 446 110 - 370 08/19/2016 [facility] ANEMIA STUDY % Satur Fe 4 12 - 57 08/19/2016 [facility] ANEMIA STUDY TIBC 463 228 - 428 08/19/2016 [facility] ANEMIA STUDY Iron 17 30 - 160 08/19/2016 [facility] CHEM PANEL VITAMIN B1 (THIAMINE) WHO LE BLOOD 79.6 66.5 - 200.0 08/19/2016 Result Comment: Performed At : [facility]
[address], [place] [id number]
Carlin Feliz MD Ph:[phone] [facility] ANEMIA STUDY UIBC 378 110 - 370 08/19/2016 [facility] ANEMIA STUDY TIBC 398 228 - 428 08/19/2016 [facility] ANEMIA STUDY % Satur Fe 5 12 - 57 08/19/2016 [facility] ANEMIA STUDY Iron 20 30 - 160 08/19/2016 [facility] CHEM PANEL eGFR 68 08/19/2016 Result Comment: [...] should be multiplied by the estimated BMI. [facility] CHEM PANEL Bili Total 0.9 0.2 - 1.3 08/19/2016 [facility] CHEM PANEL AST 325 0 - 37 08/19/2016 [facility] CHEM PANEL Alk Phos 188 39 - 136 08/19/2016 [facility] CHEM PANEL AGAP 12.0 10.0 - 20.0 08/19/2016 [facility] CHEM PANEL Calcium Lvl 8.6 8.5 - 10.5 08/19/2016 [facility] CHEM PANEL B/C Ratio 13 6 - 25 08/19/2016 [facility] CHEM PANEL Potassium Lvl 4.0 3.5 - 5.1 08/19/2016 [facility] CHEM PANEL Glucose Lvl 137 70 - 99 08/19/2016 [facility] CHEM PANEL BUN 13 7 - 22 08/19/2016 [facility] CHEM PANEL CO2 23 24 - 32 08/19/2016 [facility] CHEM PANEL Chloride Lvl 108 95 - 109 08/19/2016 [facility] CHEM PANEL Creatinine Lvl 0.99 0.50 - 1.40 08/19/2016 [facility] CHEM PANEL Sodium Lvl 139 135 - 145 08/19/2016 [facility] CHEM PANEL Globulin 3.2 2.7 - 4.2 08/19/2016 [facility] CHEM PANEL Total Protein 6.6 6.4 - 8.4 08/19/2016 [facility] CHEM PANEL Albumin Lvl 3.4 3.5 - 5.0 08/19/2016 [facility] CHEM PANEL ALT 280 0 - 65 08/19/2016 [facility] CHEM PANEL A/G Ratio 1.1 0.7 - 1.6 08/19/2016 [facility] HEMATOLOGY Microcyte 3+ *NA* (08/19/16 5:41 AM) [...] HEMATOLOGY Segs 63.5 45.0 - 75.0 08/19/2016 [facility] HEMATOLOGY Hgb 7.9 12.0 - 16.0 08/19/2016 [facility] MCH 20.8 27.0 - 31.0 08/19/2016 [facility] HEMATOLOGY MCV 67.5 80.0 - 98.0 08/19/2016 [facility] HEMATOLOGY MCHC 30.8 32.0 - 36.0 08/19/2016 [facility] HEMATOLOGY Hct 25.8 36.0 - 48.0 08/19/2016 [facility] HEMATOLOGY MPV 9.0 7.4 - 10.4 08/19/2016 [facility] HEMATOLOGY Platelet 216 133 - 450 08/19/2016 [facility] HEMATOLOGY RDW 18.2 11.5 - 14.5 08/19/2016 [facility] HEMATOLOGY RBC 3.82 4.20 - 5.40 08/19/2016 [facility] HEMATOLOGY WBC 5.6 3.7 - 10.4 08/19/2016 [facility] HEMATOLOGY PTT 28.3 22.9 - 35.8 08/19/2016 [facility] HEMATOLOGY PT 14.8 12.0 - 14.7 08/19/2016 [facility] HEMATOLOGY INR 1.14 0.85 - 1.17 08/19/2016 [facility] IMMUNOLOGY Hep A IgM Negat adan *NA* (08/19/16 5:41 AM) Negative 08/19/2016 [facility] IMMUNOLOGY Hep B Core IgM Negat adan *NA* (08/19/16 5:41 AM) Negative 08/19/2016 [facility] IMMUNOLOGY Hep C Ab Negat adan *NA* (08/19/16 5:41 AM) 08/19/2016 [facility] IMMUNOLOGY Hep Bs Ag Negat adan *NA* (08/19/16 5:41 AM) Negative 08/19/2016 [facility] URINE AND STOOL UA WBC 1 0 - 5 08/18/2016 [facility] URINE AND STOOL UA Urobilinogen 4.0 0.1 - 1.0 08/18/2016 [facility] URINE AND STOOL UA Leuk Est Negative (08/18/16 8:45 AM) Negative 08/18/2016 [facility] URINE AND STOOL UA RBC <1 0 - 2 08/18/2016 [facility] URINE AND STOOL UA Sq Epi Occasional /LPF Few /LPF 08/18/2016 [facility] URINE AND STOOL UA Blood Negative (08/18/16 8:45 AM) Negative 08/18/2016 [facility] URINE AND STOOL UA Nitrite Negative (08/18/16 8:45 AM) Negative 08/18/2016 [facility] URINE AND STOOL UA Bili Negative *NA* (08/18/16 8:45 AM) Negative 08/18/2016 [facility] URINE AND STOOL UA Ketones Negative mg/dL Negative mg/dL 08/18/[address] [facility] [address] URINE AND STOOL UA Turbidity Clear (08/18/16 8:45 AM) Clear 08/18/2016 [facility] URINE AND STOOL UA Spec Grav 1.014 <=1.030 08/18/2016 [facility] URINE AND STOOL UA Protein Negative mg/dL Negative mg/dL 08/18/2016 [facility] URINE AND STOOL UA pH 5.0 5.0 - 8.0 08/18/2016 [facility] URINE AND STOOL UA Glucose Negative mg/dL Negative mg/dL 08/18/2016 [facility] URINE AND STOOL UA Color Yellow *NA* (08/18/16 8:45 AM) Yellow 08/18/2016 [facility] CHEM PANEL Magnesium Lvl 1.3 1.8 - 2.4 08/18/2016 [facility] CHEM PANEL ALT 161 0 - 65 08/18/2016 [facility] CHEM PANEL Total Protein 6.7 6.4 - 8.4 08/18/2016 [facility] CHEM PANEL A/G Ratio 1.0 0.7 - 1.6 08/18/2016 [facility] CHEM PANEL B/C Ratio 14 6 - 25 08/18/2016 [facility] CHEM PANEL Globulin 3.3 2.7 - 4.2 08/18/2016 [facility] CHEM PANEL Albumin Lvl 3.4 3.5 - 5.0 08/18/2016 [facility] CHEM PANEL eGFR 49 08/18/2016 Result Comment: [...] should be multiplied by the estimated BMI. [facility] CHEM PANEL Alk Phos 159 39 - 136 08/18/2016 [facility] CHEM PANEL AST 490 0 - 37 08/18/2016 [facility] CHEM PANEL Bili Total 0.8 0.2 - 1.3 08/18/2016 [facility] CHEM PANEL Calcium Lvl 8.3 8.5 - 10.5 08/18/2016 [facility] CHEM PANEL Glucose Lvl 197 70 - 99 08/18/2016 [facility] CHEM PANEL Creatinine Lvl 1.30 0.50 - 1.40 08/18/2016 [facility] CHEM PANEL BUN 18 7 - 22 08/18/2016 [facility] CHEM PANEL Sodium Lvl 140 135 - 145 08/18/2016 [facility] CHEM PANEL Potassium Lvl 4.1 3.5 - 5.1 08/18/2016 [facility] CHEM PANEL Chloride Lvl 110 95 - 109 08/18/2016 [facility] CHEM PANEL CO2 20 24 - 32 08/18/2016 [facility] CHEM PANEL AGAP 14.1 10.0 - 20.0 08/18/2016 [facility] HEMATOLOGY Eosinophils 0.1 0.0 - 4.0 08/18/2016 [facility] HEMATOLOGY Segs-Bands # 6.1 1.5 - 8.1 08/18/2016 [facility] HEMATOLOGY Lymphocytes # 1.2 1.0 - 5.5 08/18/2016 [facility] HEMATOLOGY Monocytes # 0.6 0.0 - 0.8 08/18/2016 [facility] HEMATOLOGY Basophils 0.4 0.0 - 1.0 08/18/2016 [facility] HEMATOLOGY Segs 77.4 45.0 - 75.0 08/18/2016 [facility] Lymphocytes 14.8 20.0 - 40.0 08/18/2016 [facility] Monocytes 7.3 2.0 - 12.0 08/18/2016 [facility] HEMATOLOGY Microcyte 3+ *NA* (08/18/16 4:34 AM) None Seen 08/18/2016 [facility] CHEM PANEL Lipase Lvl 123 73 - 393 08/18/2016 [facility] RBC Morph See N ote 1 (08/17/16 7:21 PM) 08/18/2016 Result Comment: microcytosis [facility] Plt Morph Keisha l (08/17/16 7:21 PM) 08/18/2016 [facility] Basophils # 0.1 0.0 - 0.2 08/18/2016 [facility] URINE AND STOOL UA Glucose 50 mg/dL Negative mg/dL 08/18/2016 [facility] URINE AND STOOL UA Ketones Trace mg/dL Negative mg/dL 08/18/2016 [facility] URINE AND STOOL UA Hyal Cast [...] UA pH 5.0 5.0 - 8.0 08/18/2016 [facility] URINE AND STOOL UA Spec Grav 1.026 <=1.030 08/18/2016 [facility] URINE AND STOOL UA Bili Negative *NA* (08/17/16 7:21 PM) Negative 08/18/2016 [facility] URINE AND STOOL UA Leuk Est Negative (08/17/16 7:21 PM) Negative 08/18/2016 [facility] URINE AND STOOL UA Nitrite Negative (08/17/16 7:21 PM) Negative 08/18/2016 [facility] URINE AND STOOL UA Protein 100 mg/dL Negative mg/dL 08/18/2016 [facility] URINE AND STOOL UA Turbidity Slight *ABN* (08/17/16 7:21 PM) Clear 08/18/2016 [facility] URINE AND STOOL UA Color Yellow *NA* (08/17/16 7:21 PM) Yellow 08/18/2016 [facility] URINE CHEM U Preg Negat adan (08/17/16 7:21 PM) Negative 08/18/2016 [facility] HEMATOLOGY Monocytes # 0.5 0.0 - 0.8 06/19/2016 [facility] HEMATOLOGY Basophils # 0.1 0.0 - 0.2 06/19/2016 [facility] Microcyte 3+ *NA* (06/19/16 7:45 AM) None Seen 06/19/2016 [facility] Basophils 0.9 0.0 - 1.0 06/19/2016 [facility] HEMATOLOGY Segs-Bands # 5.0 1.5 - 8.1 06/19/2016 [facility] Lymphocytes # 1.7 1.0 - 5.5 06/19/2016 [facility] Monocytes 7.0 2.0 - 12.0 06/19/2016 [facility] HEMATOLOGY Eosinophils 0.6 0.0 - 4.0 06/19/2016 [facility] Lymphocytes 22.8 20.0 - 40.0 06/19/2016 [facility] Segs 68.7 45.0 - 75.0 06/19/2016 [facility] WBC 7.3 3.7 - 10.4 06/19/2016 [facility] RBC 4.19 4.20 - 5.40 06/19/2016 [facility] Hgb 8.4 12.0 - 16.0 06/19/2016 [facility] MCH 20.1 27.0 - 31.0 06/19/2016 [facility] MCHC 30.7 32.0 - 36.0 06/19/2016 [facility] RDW 20.1 11.5 - 14.5 06/19/2016 [facility] Hct 27.4 36.0 - 48.0 06/19/2016 [facility] MCV 65.3 80.0 - 98.0 06/19/2016 [facility] HEMATOLOGY MPV 9.1 7.4 - 10.4 06/19/2016 [facility] HEMATOLOGY Platelet 202 133 - 450 06/19/2016 [facility] CHEM PANEL Ammonia 15.0 <=45.0 uMol/L 06/19/2016 [facility] TOXICOLOGY Salicylate Lvl <1.7 0.0 - 30.0 06/19/2016 [facility] TOXICOLOGY Ethanol Lvl <3 06/19/2016 [facility] TOXICOLOGY Etoh (%) <0.003 06/19/2016 [facility] TOXICOLOGY Acetaminoph Lvl <2 (06/19/16 12:50 AM) 10 - 20 06/19/2016 [facility] URINE AND STOOL UA Color Ltyellow 06/19/2016 [facility] URINE AND STOOL UA Ketones Negative mg/dL Negative mg/dL 06/19/2016 [facility] URINE AND STOOL UA Urobilinogen 2.0 0.1 - 1.0 06/19/2016 [facility] URINE AND STOOL UA Bili Negative *NA* (06/19/16 12:50 AM) Negative 06/19/2016 [facility] URINE AND STOOL UA Blood Negative (06/19/16 12:50 AM) Negative 06/19/2016 [facility] URINE AND STOOL UA WBC 1 0 - 5 06/19/2016 [facility] URINE AND STOOL UA RBC <1 0 - 2 06/19/2016 [facility] URINE AND STOOL UA Bacteria Occasional /HPF None Seen /HPF 06/19/2016 [facility] URINE AND STOOL UA Nitrite Negative (06/19/16 12:50 AM) Negative 06/19/2016 [facility] URINE AND STOOL UA Leuk Est Negative (06/19/16 12:50 AM) Negative 06/19/2016 [facility] URINE AND STOOL UA Sq Epi Few /LPF Few /LPF 06/19/2016 [facility] URINE AND STOOL UA Glucose Negative mg/dL Negative mg/dL 06/19/[address] [facility] [address] URINE AND STOOL UA pH 5.0 5.0 - 8.0 06/19/2016 [facility] URINE AND STOOL UA Protein Negative mg/dL Negative mg/dL 06/19/2016 [facility] URINE AND STOOL UA Turbidity Clear (06/19/16 12:50 AM) Clear 06/19/2016 [facility] URINE AND STOOL UA Spec Grav 1.013 <=1.030 06/19/2016 [facility] CARDIAC ENZYMES CK MB 1.4 0.5 - 3.6 06/19/2016 [facility] CARDIAC ENZYMES Troponin-I <0.02 0.00 - 0.40 06/19/2016 [facility] CARDIAC ENZYMES Total CK 85 12 - 191 06/19/2016 [facility] CARDIAC ENZYMES BNP 9 <=100 pg/mL 06/19/2016 [facility] CARDIAC ENZYMES CK MB Index 1.6 0.0 - 2.5 06/19/2016 [facility] CHEM PANEL eGFR 54 06/19/2016 Result Comment: [...] should be multiplied by the estimated BMI. [facility] CHEM PANEL Alk Phos 137 39 - 136 06/19/2016 [facility] CHEM PANEL B/C Ratio 18 6 - 25 06/19/2016 [facility] CHEM PANEL Bili Total 0.3 0.2 - 1.3 06/19/2016 [facility] CHEM PANEL AST 14 0 - 37 06/19/2016 [facility] CHEM PANEL Total Protein 7.7 6.4 - 8.4 06/19/2016 [facility] CHEM PANEL AGAP 14.2 10.0 - 20.0 06/19/2016 [facility] CHEM PANEL Albumin Lvl 4.0 3.5 - 5.0 06/19/2016 [facility] CHEM PANEL Globulin 3.7 2.7 - 4.2 06/19/2016 [facility] CHEM PANEL A/G Ratio 1.1 0.7 - 1.6 06/19/2016 [facility] CHEM PANEL Chloride Lvl 105 95 - 109 06/19/2016 [facility] CHEM PANEL ALT 20 0 - 65 06/19/2016 [facility] CHEM PANEL Calcium Lvl 8.6 8.5 - 10.5 06/19/2016 [facility] CHEM PANEL CO2 25 24 - 32 06/19/2016 [facility] CHEM PANEL BUN 21 7 - 22 06/19/2016 [facility] CHEM PANEL Sodium Lvl 140 135 - 145 06/19/2016 [facility] CHEM PANEL Creatinine Lvl 1.20 0.50 - 1.40 06/19/2016 [facility] CHEM PANEL Potassium Lvl 4.2 3.5 - 5.1 06/19/2016 [facility] CHEM PANEL Glucose Lvl 147 70 - 99 06/19/2016 [facility] HEMATOLOGY Platelet 193 133 - 450 06/19/2016 [facility] HEMATOLOGY MPV 9.4 7.4 - 10.4 06/19/2016 [facility] HEMATOLOGY MCHC 30.4 32.0 - 36.0 06/19/2016 [facility] HEMATOLOGY RDW 20.2 11.5 - 14.5 06/19/2016 [facility] Hct 29.8 36.0 - 48.0 06/19/2016 [facility] HEMATOLOGY MCV 66.1 80.0 - 98.0 06/19/2016 [facility] MCH 20.1 27.0 - 31.0 06/19/2016 [facility] HEMATOLOGY WBC 8.4 3.7 - 10.4 06/19/2016 [facility] HEMATOLOGY RBC 4.51 4.20 - 5.40 06/19/2016 [facility] HEMATOLOGY Hgb 9.1 12.0 - 16.0 06/19/2016 [facility] Microcyte 3+ *NA* (06/19/16 12:18 AM) None Seen 06/19/2016 [facility] HEMATOLOGY Lymphocytes # 1.6 1.0 - 5.5 06/19/2016 [facility] HEMATOLOGY Segs-Bands # 6.1 1.5 - 8.1 06/19/2016 [facility] HEMATOLOGY Eosinophils # 0.1 0.0 - 0.5 06/19/2016 [facility] HEMATOLOGY Monocytes # 0.6 0.0 - 0.8 06/19/2016 [facility] HEMATOLOGY Monocytes 7.6 2.0 - 12.0 06/19/2016 [facility] HEMATOLOGY Basophils 0.3 0.0 - 1.0 06/19/2016 [facility] HEMATOLOGY Eosinophils 0.8 0.0 - 4.0 06/19/2016 [facility] HEMATOLOGY Lymphocytes 18.5 20.0 - 40.0 06/19/2016 [facility] HEMATOLOGY Segs 72.8 45.0 - 75.0 06/19/2016 [facility] CHEM PANEL eGFR 54 06/07/2016 Result Comment: [...] should be multiplied by the estimated BMI. [facility] CHEM PANEL Glucose Lvl 313 70 - 99 06/07/2016 [facility] CHEM PANEL BUN 21 7 - 22 06/07/2016 [facility] CHEM PANEL Creatinine Lvl 1.20 0.50 - 1.40 06/07/2016 [facility] CHEM PANEL Calcium Lvl 8.3 8.5 - 10.5 06/07/2016 [facility] CHEM PANEL CO2 22 24 - 32 06/07/2016 [facility] CHEM PANEL Chloride Lvl 105 95 - 109 06/07/2016 [facility] CHEM PANEL Sodium Lvl 137 135 - 145 06/07/2016 [facility] CHEM PANEL Potassium Lvl 4.1 3.5 - 5.1 06/07/2016 [facility] CHEM PANEL AGAP 14.1 10.0 - 20.0 06/07/2016 [facility] HEMATOLOGY MCHC 30.6 32.0 - 36.0 06/07/2016 [facility] MCH 20.1 27.0 - 31.0 06/07/2016 [facility] HEMATOLOGY MCV 65.7 80.0 - 98.0 06/07/2016 [facility] RDW 19.8 11.5 - 14.5 06/07/2016 [facility] Hct 25.1 36.0 - 48.0 06/07/2016 [facility] MPV 9.4 7.4 - 10.4 06/07/2016 [facility] HEMATOLOGY Platelet 190 133 - 450 06/07/2016 [facility] HEMATOLOGY WBC 6.3 3.7 - 10.4 06/07/2016 [facility] HEMATOLOGY Hgb 7.7 12.0 - 16.0 06/07/2016 [facility] HEMATOLOGY RBC 3.82 4.20 - 5.40 06/07/2016 [facility] Microcyte 3+ *NA* (06/07/16 12:52 PM) None Seen 06/07/2016 [facility] HEMATOLOGY Plt Morph Keisha l (06/07/16 12:52 PM) 06/07/2016 [facility] HEMATOLOGY Segs 68.2 45.0 - 75.0 06/07/2016 [facility] HEMATOLOGY Lymphocytes 24.6 20.0 - 40.0 06/07/2016 [facility] Monocytes 6.1 2.0 - 12.0 06/07/2016 [facility] Eosinophils 0.5 0.0 - 4.0 06/07/2016 [facility] Segs-Bands # 4.0 1.5 - 8.1 06/07/2016 [facility] Monocytes # 0.4 0.0 - 0.8 06/07/2016 [facility] Lymphocytes # 1.4 1.0 - 5.5 06/07/2016 [facility] Hypochrom 1+ (06/07/16 12:52 PM) None Seen 06/07/2016 [facility] URINE AND STOOL UA Urobilinogen 2.0 0.1 - 1.0 06/07/2016 [facility] URINE AND STOOL UA Nitrite Negative (06/07/16 12:52 PM) Negative 06/07/2016 [facility] URINE AND STOOL UA Leuk Est Negative (06/07/16 12:52 PM) Negative 06/07/2016 [facility] URINE AND STOOL UA WBC 2 0 - 5 06/07/2016 [facility] URINE AND STOOL UA Spec Grav 1.018 <=1.030 06/07/2016 [facility] URINE AND STOOL UA pH 6.0 5.0 - 8.0 06/07/2016 [facility] URINE AND STOOL UA Protein 30 mg/dL Negative mg/dL 06/07/2016 [facility] URINE AND STOOL UA Glucose 500 mg/dL Negative mg/dL 06/07/2016 [facility] URINE AND STOOL UA Ketones Negative mg/dL Negative mg/dL 06/07/2016 [facility] URINE AND STOOL UA Bili Negative *NA* (06/07/16 12:52 PM) Negative 06/07/2016 [facility] URINE AND STOOL UA Blood Negative (06/07/16 12:52 PM) Negative 06/07/2016 [facility] URINE AND STOOL UA Sq Epi Occasional /LPF Few /LPF 06/07/2016 [facility] URINE AND STOOL UA RBC 1 0 - 2 06/07/2016 [facility] URINE AND STOOL UA Color Yellow *NA* (06/07/16 12:52 PM) Yellow 06/07/2016 [facility] URINE AND STOOL UA Turbidity Clear (06/07/16 12:52 PM) Clear 06/07/2016 [facility] URINE CHEM U Preg Negat adan (06/07/16 12:52 PM) Negative 06/07/2016 [facility] BLOOD BANK RESULTS ABO/Rh A POS 01/19/2016 [facility] BLOOD BANK RESULTS Antibody Scrn Negative (01/19/16 2:55 AM) 01/19/2016 [facility] CARDIAC ENZYMES CK MB <0.5 0.5 - 3.6 01/19/2016 [facility] CARDIAC ENZYMES Troponin-I <0.02 0.00 - 0.40 01/19/2016 [facility] CARDIAC ENZYMES Total CK 44 12 - 191 01/19/2016 [facility] CARDIAC ENZYMES CK MB Index <1.1 0.0 - 2.5 01/19/2016 [facility] CHEM PANEL Lactic Acid Lvl 1.4 0.5 - 2.2 01/19/2016 [facility] CHEM PANEL Amylase Lvl 106 25 - 115 01/19/2016 [facility] CHEM PANEL Lipase Lvl 82 73 - 393 01/19/2016 [facility] CHEM PANEL eGFR 45 01/19/2016 Result Comment: [...] should be multiplied by the estimated BMI. [facility] CHEM PANEL AGAP 12.1 10.0 - 20.0 [...] Sodium Lvl 131 135 - 145 01/19/2016 [facility] CHEM PANEL Creatinine Lvl 1.40 0.50 - 1.40 01/19/2016 [facility] CHEM PANEL BUN 20 7 - 22 01/19/2016 [facility] CHEM PANEL Glucose Lvl 291 70 - 99 01/19/2016 [facility] CHEM PANEL A/G Ratio 1.0 0.7 - 1.6 01/19/2016 [facility] CHEM PANEL Globulin 4.4 2.7 - 4.2 01/19/2016 [facility] CHEM PANEL B/C Ratio 14 6 - 25 01/19/2016 [facility] CHEM PANEL Albumin Lvl 4.4 3.5 - 5.0 01/19/2016 [facility] CHEM PANEL Calcium Lvl 9.2 8.5 - 10.5 01/19/2016 [facility] CHEM PANEL Chloride Lvl 97 95 - 109 01/19/2016 [facility] CHEM PANEL Total Protein 8.8 6.4 - 8.4 01/19/2016 [facility] CHEM PANEL CO2 26 24 - 32 01/19/2016 [facility] ENDOCRINOLOGY S Preg Ne gative *NA* (01/19/16 2:55 AM) Negative 01/19/2016 [facility] HEMATOLOGY MCH 18.9 27.0 - 31.0 01/19/2016 [facility] HEMATOLOGY Platelet 238 133 - 450 01/19/2016 [facility] HEMATOLOGY MPV 9.4 7.4 - 10.4 01/19/2016 [facility] HEMATOLOGY MCHC 30.3 32.0 - 36.0 01/19/2016 [facility] HEMATOLOGY RDW 18.8 11.5 - 14.5 01/19/2016 [facility] HEMATOLOGY RBC 5.46 4.20 - 5.40 01/19/2016 [facility] HEMATOLOGY Hgb 10.3 12.0 - 16.0 01/19/2016 [facility] HEMATOLOGY Hct 34.1 36.0 - 48.0 01/19/2016 [facility] HEMATOLOGY MCV 62.5 80.0 - 98.0 01/19/2016 [facility] HEMATOLOGY WBC 7.3 3.7 - 10.4 01/19/2016 [facility] HEMATOLOGY PT 13.5 12.0 - 14.7 01/19/2016 [facility] INR 1.01 0.85 - 1.17 01/19/2016 [facility] Hypochrom 1+ (01/19/16 2:55 AM) None Seen 01/19/2016 [facility] Microcyte 3+ *NA* (01/19/16 2:55 AM) None Seen 01/19/2016 [facility] Monocytes # 0.6 0.0 - 0.8 01/19/2016 [facility] HEMATOLOGY Segs 67.7 45.0 - 75.0 01/19/2016 [facility] Plt Morph Keisha l (01/19/16 2:55 AM) 01/19/2016 [facility] Segs-Bands # 5.0 1.5 - 8.1 01/19/2016 [facility] HEMATOLOGY Basophils 0.5 0.0 - 1.0 01/19/2016 [facility] Eosinophils 0.4 0.0 - 4.0 01/19/2016 [facility] Monocytes 7.5 2.0 - 12.0 01/19/2016 [facility] Lymphocytes 23.9 20.0 - 40.0 01/19/2016 [facility] Lymphocytes # 1.8 1.0 - 5.5 01/19/2016 [facility] URINE AND STOOL UA Urobilinogen <=1.0 mg/dL 0.1 - 1.0 01/19/2016 [facility] URINE AND STOOL UA Ketones 20 mg/dL Negative mg/dL 01/19/2016 [facility] URINE AND STOOL UA Bili Negative *NA* (01/19/16 2:55 AM) Negative 01/19/2016 [facility] URINE AND STOOL UA Glucose 500 mg/dL Negative mg/dL 01/19/2016 [facility] URINE AND STOOL UA Protein 100 mg/dL Negative mg/dL 01/19/2016 [facility] URINE AND STOOL UA Spec Grav 1.024 <=1.030 01/19/2016 [facility] URINE AND STOOL UA pH 5.0 5.0 - 8.0 01/19/2016 [facility] URINE AND STOOL UA Color Yellow *NA* (01/19/16 2:55 AM) Yellow 01/19/2016 [facility] URINE AND STOOL UA Turbidity Clear (01/19/16 2:55 AM) Clear 01/19/2016 [facility] URINE AND STOOL UA Mucus Few /LPF None Seen /LPF 01/19/2016 [facility] URINE AND STOOL UA Bacteria Occasional /HPF None Seen /HPF 01/19/[address] [facility] [address] URINE AND STOOL UA WBC 3 [...] Urobilinogen <=1.0 mg/dL 0.1 - 1.0 09/08/[address] [facility] [address] URINE AND STOOL UA Ketones Negative mg/dL Negative mg/dL 09/08/[address] [facility] [address] URINE AND STOOL UA Blood Negative [...] UA Glucose 150 mg/dL Negative mg/dL 09/08/2014 [facility] URINE AND STOOL UA Spec Grav 1.020 <=1.030 09/08/2014 [facility] URINE AND STOOL UA Turbidity Clear (09/08/14 5:50 PM) Clear 09/08/2014 [facility] URINE AND STOOL UA Protein Negative mg/dL Negative mg/dL 09/08/[address] [facility] [address] URINE CHEM U Preg Negat adan (09/08/14 5:50 PM) Negative 09/08/2014 [facility] CHEM PANEL Lipase Lvl 87 73 - 393 09/08/2014 [facility] CHEM PANEL eGFR 50 09/08/2014 <sup>1</sup>Result Comment: [...] should be multiplied by the estimated BMI. [facility] CHEM PANEL Glucose Lvl 158 70 - 99 09/08/2014 <sup>2</sup>Interpretive Data: Adult ref erence range values reflect the clinical guidelines
of the [place] [employer]. [facility] CHEM PANEL AST 19 0 - 37 09/08/2014 [facility] CHEM PANEL BUN 22 7 - 22 09/08/2014 [facility] CHEM PANEL Total Protein 7.3 6.4 - 8.4 09/08/2014 [facility] CHEM PANEL Creatinine Lvl 1.3 0.5 - 1.4 09/08/2014 [facility] CHEM PANEL CO2 25 24 - 32 09/08/2014 [facility] CHEM PANEL ALT 42 0 - 65 09/08/2014 [facility] CHEM PANEL Albumin Lvl 3.6 3.5 - 5.0 09/08/2014 [facility] CHEM PANEL Alk Phos 213 39 - 136 09/08/2014 [facility] CHEM PANEL Bili Total 0.2 0.2 - 1.3 09/08/2014 [facility] CHEM PANEL Potassium Lvl 4.1 3.5 - 5.1 09/08/2014 [facility] CHEM PANEL Sodium Lvl 139 135 - 145 09/08/2014 [facility] CHEM PANEL Chloride Lvl 106 95 - 109 09/08/2014 [facility] CHEM PANEL Calcium Lvl 8.0 8.5 - 10.5 09/08/2014 [facility] CHEM PANEL Globulin 3.7 2.0 - 4.0 09/08/2014 [facility] CHEM PANEL A/G Ratio 1.0 0.7 - 1.6 09/08/2014 [facility] CHEM PANEL AGAP 12.1 10.0 - 20.0 09/08/2014 [facility] CHEM PANEL B/C Ratio 17 6 - 25 09/08/2014 [facility] CHEM PANEL Magnesium Lvl 2.2 1.8 - 2.4 09/08/2014 [facility] CHEM PANEL Phosphorus 2.7 2.5 - 4.5 09/08/2014 [facility] HEMATOLOGY MCHC 32.5 32.0 - 36.0 09/08/2014 [facility] Hct 28.2 36.0 - 48.0 09/08/2014 [facility] MCV 73.7 80.0 - 98.0 09/08/2014 [facility] MCH 23.9 27.0 - 31.0 09/08/2014 [facility] RDW 17.2 11.5 - 14.5 09/08/2014 [facility] Platelet 144 133 - 450 09/08/2014 [facility] HEMATOLOGY MPV 9.1 7.4 - 10.4 09/08/2014 [facility] RBC 3.83 4.20 - 5.40 09/08/2014 [facility] WBC 5.4 3.7 - 10.4 09/08/2014 [facility] Hgb 9.2 12.0 - 16.0 09/08/2014 [facility] Microcyte 1+ *ABN* (09/08/14 5:03 PM) None Seen 09/08/2014 [facility] HEMATOLOGY Eosinophils # 0.1 0.0 - 0.5 09/08/2014 [facility] HEMATOLOGY Monocytes # 0.4 0.0 - 0.8 09/08/2014 [facility] HEMATOLOGY Lymphocytes # 1.4 1.0 - 5.5 09/08/2014 [facility] HEMATOLOGY Basophils 0.6 0.0 - 1.0 09/08/2014 [facility] HEMATOLOGY Segs-Bands # 3.5 1.5 - 8.1 09/08/2014 [facility] HEMATOLOGY Eosinophils 1.3 0.0 - 4.0 09/08/2014 [facility] Lymphocytes 26.3 20.0 - 40.0 09/08/2014 [facility] HEMATOLOGY Monocytes 8.1 2.0 - 12.0 09/08/2014 [facility] HEMATOLOGY Segs 63.7 45.0 - 75.0 09/08/2014 [facility] Pathology Reports No Data Provided for This [...] scribed. Kurt Paz MD On 02/24/2019 09:55:52; [id number] 02/23/2019 [facility] Spine lumbar wo contrast CT Ra diation [...] described. Jj Bah MD On 02/26/2019 08:19:31; [id number] 02/23/2019 [facility] Abdomen/Pelvis w IV contrast CT Clinical Indication: [...] to patient size -Use of iterative reconstruction [employer] ue CT Radiation Dose DLP 1217 mGy-cm [...] Unchanged right adrenal nodule SL: [id number] 02/22/2018 [facility] Chest 1view DX Clinical Indica tion: - HTN, vomiting; Comparison: June 18, 2016 FINDINGS: AP chest radiographs shows normal lung volumes without interstitial or airspace opacities, pleural effusions or pneumothorax. The heart size and pulmonary vasculature are normal. The trachea is midline. There are no clinically significant osseous abnormalities noted. IMPRESSION: No chest radiographic evidence of acute cardiopulmonary disease. SL: [id number] 02/22/2018 [facility] Abdomen/Pelvis w IV contrast CT EXAM: CT [...] right adrenal adenoma. 3. Mild splenomegaly. SL: [id number] 01/17/2017 [facility] Ext Lower Venous Doppler Bilat US Ext [...] examined veins of both lower extremities. SL: [id number] 12/23/2016 [facility] Retroperitoneal Complete US Dashawn lbkrista Name: VERONICA MURRELL : 1970; Age: 46 years y/o Female MR: [id number] Study: Retroperitoneal Complete US Clinical Indication: Renal [...] unremarkable. IMPRESSION: 1. Unremarkable renal U/S SL: [id number] 09/09/2016 [facility] Abdomen/Pelvis wo IV contrast CT Study: Abdomen/Pelvis [...] cm right adrenal adenoma. SL: [id number] 09/08/2016 [facility] Abdomen wo contrast MRI Abdome n wo [...] function tests recommended. Right adrenal adenoma. SL: [id number] 08/19/2016 [facility] Abdomen/Pelvis wo IV contrast CT CT SCAN [...] is present . Anemia. SL: [id number] 08/17/2016 [facility] wo contrast MRI EXAM: MR I BRAIN [...] sequences were not obtained, limiting exam. SL: [id number] 06/19/2016 [facility] Chest 1view DX Exam: Chest X- Ray Clinical Indication: dyspnea Technique: Frontal view of the chest is provided. Findings: Heart and mediastinum are normal. Lungs are clear. There are no pleural effusions. Impression: No acute intrathoracic disease. 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 SL: [id number] 06/18/2016 [facility] ED Abdomen/Pelvis IV contrast only CT Clinical [...] cm hypode nse right adrenal nodule. SL: [id number] 06/07/2016 [facility] Abdomen/Pelvis w IV contrast CT EXAM: CT [...] n odule. 4. Cholecystectomy. SL: [id number] 01/19/2016 [facility] Consultation Notes No Data Provided for This Section Discharge Summaries No Data Provided for This Section History and Physicals No Data Provided for This Section Vital Signs Vital Sign Value Date Comments Source Systolic (mm Hg) 147 12/11/2018 [facility] Diastolic (mm Hg) 98 12/11/2018 [facility] Respitory Rate 16 12/11/2018 [facility] Systolic (mm Hg) 147 12/11/2018 [facility] Diastolic (mm Hg) 98 12/11/2018 [facility] Respitory Rate 15 12/11/2018 [facility] Respitory Rate 16 12/11/2018 [facility] Heart Rate 63 12/11/2018 [facility] Height 167.64 cm 12/06/2018 [facility] Weight 97.784 12/06/2018 [facility] BMI Calculated 34.79 12/06/2018 [facility] Temperature Oral (F) 98.7 F 12/06/2018 [facility] Heart Rate 71 12/06/2018 [facility] Systolic (mm Hg) 148 11/14/2018 [facility] Diastolic (mm Hg) 91 11/14/2018 [facility] Heart Rate 93 11/14/2018 [facility] Height 167.64 cm 11/14/2018 [facility] Weight 90.909 11/14/2018 [facility] BMI Calculated 32.35 11/14/2018 [facility] Respitory Rate 18 02/23/2018 [facility] Temperature [...] F 02/22/2018 [facility] Height 167.64 cm 02/22/2018 [facility] BMI Calculated 29.11 02/22/2018 [facility] Temperature Oral [...] 11/15/2016 [facility] Heart Rate 78 11/15/2016 [facility] Heart Rate 69 11/08/2016 [facility] Temperature Oral (F) 98.1 F 11/08/2016 [facility] Systolic (mm Hg) 113 11/08/2016 [facility] Diastolic (mm Hg) 74 11/08/2016 [facility] Respitory Rate 18 11/08/2016 [facility] Respitory Rate 18 11/02/2016 [facility] Temperature Oral (F) 98.8 F 11/02/2016 [facility] Heart Rate 53 11/02/2016 [facility] Systolic (mm Hg) 170 11/02/2016 [facility] Diastolic (mm Hg) 90 11/02/2016 [facility] BMI Calculated 31.37 10/15/2016 [facility] Weight 88.12 10/15/2016 [facility] Height 167.6 cm 10/15/2016 [facility] Temperature Oral (F) 98.8 F 09/10/2016 [facility] Respitory Rate 18 09/10/2016 [facility] Systolic (mm Hg) 186 09/10/2016 [facility] Diastolic (mm Hg) 97 09/10/2016 [facility] Heart Rate 54 09/10/2016 [facility] Systolic (mm Hg) 141 09/10/2016 [facility] Diastolic (mm Hg) 79 09/10/2016 [facility] Respitory Rate 18 09/10/2016 [facility] Heart Rate 47 09/10/2016 [facility] Temperature Oral (F) 98.3 F 09/10/2016 [facility] Systolic (mm Hg) 112 09/10/2016 [facility] Diastolic (mm Hg) 74 09/10/2016 [facility] Respitory Rate 18 09/10/2016 [facility] Heart Rate 48 09/10/2016 [facility] Temperature Oral (F) 98.0 F 09/10/2016 [facility] BMI Calculated 31.38 09/08/2016 [facility] Weight 88.182 09/08/2016 [facility] Height 167.64 cm 09/08/2016 [facility] Weight 88.182 09/08/2016 [facility] Height 167.64 cm 09/08/2016 [facility] BMI Calculated 31.38 09/08/2016 [facility] Systolic (mm Hg) 130 08/20/2016 [facility] Diastolic (mm Hg) 88 08/20/2016 [facility] Temperature Oral (F) 98.5 F 08/20/2016 [facility] Heart Rate 55 08/20/2016 [facility] Respitory Rate 18 08/20/2016 [facility] Respitory Rate 16 08/20/2016 [facility] Systolic (mm Hg) 119 08/20/2016 [facility] Diastolic (mm Hg) 78 08/20/2016 [facility] Heart Rate 50 08/20/2016 [facility] Respitory Rate 16 08/20/2016 [facility] Systolic (mm Hg) 146 08/20/2016 [facility] Diastolic (mm Hg) 92 08/20/2016 [facility] Heart Rate 52 08/20/2016 [facility] Temperature Oral (F) 98.5 F 08/20/2016 [facility] Temperature Oral (F) 98.7 F 08/20/2016 [facility] Height 167.64 cm 08/17/2016 [facility] Weight 91.364 08/17/2016 [facility] BMI Calculated 32.51 08/17/2016 [facility] Respitory Rate 18 06/20/2016 [facility] Systolic (mm Hg) 145 06/20/2016 [facility] Diastolic (mm Hg) 91 06/20/2016 [facility] Temperature Oral (F) 98.1 F 06/20/2016 [facility] Heart Rate 86 06/20/2016 [facility] Systolic (mm Hg) 112 06/20/2016 [facility] Diastolic (mm Hg) 71 06/20/2016 [facility] Respitory Rate 18 06/20/2016 [facility] Heart Rate 93 06/20/2016 [facility] Temperature Oral (F) 98.4 F 06/20/2016 [facility] Heart Rate 82 06/20/2016 [facility] Temperature Oral (F) 98.1 F 06/20/2016 [facility] Systolic (mm Hg) 122 06/20/2016 [facility] Diastolic (mm Hg) 82 06/20/2016 [facility] Respitory Rate 18 06/20/2016 [facility] Height 165.1 cm 06/19/2016 [facility] Weight 90.2 06/19/2016 [facility] BMI Calculated 33.09 06/19/2016 [facility] Weight 81.818 06/19/2016 [facility] BMI Calculated 30.02 06/19/2016 [facility] Height 165.1 cm 06/19/2016 [facility] Respitory Rate 18 06/07/2016 [facility] Systolic (mm Hg) 137 06/07/2016 [facility] Diastolic (mm Hg) 79 06/07/2016 [facility] Temperature Oral (F) 97.7 F 06/07/2016 [facility] Heart Rate 56 06/07/2016 [facility] Height 167.64 cm 06/07/2016 [facility] Weight 95.455 06/07/2016 [facility] BMI Calculated 33.97 06/07/2016 [facility] Respitory Rate 18 06/07/2016 [facility] Temperature Oral (F) 98 F 06/07/2016 [facility] Heart Rate 60 06/07/2016 [facility] Systolic (mm Hg) 104 06/07/2016 [facility] Diastolic (mm Hg) 71 06/07/2016 [facility] Respitory Rate 20 01/19/2016 [facility] Systolic (mm Hg) 173 01/19/2016 [facility] Diastolic (mm Hg) 88 01/19/2016 [facility] Heart Rate 100 01/19/2016 [facility] Temperature Oral (F) 97.9 F 01/19/2016 [facility] Systolic (mm Hg) 173 01/19/2016 [facility] Diastolic (mm Hg) 97 01/19/2016 [facility] Systolic (mm Hg) 180 01/19/2016 [facility] Diastolic (mm Hg) 96 01/19/2016 [facility] Respitory Rate 20 01/19/2016 [facility] Temperature Oral (F) 99.0 F 01/19/2016 [facility] Heart Rate 100 01/19/2016 [facility] BMI Calculated 35.58 01/19/2016 [facility] Weight 100 01/19/2016 [facility] Height 167.64 cm 01/19/2016 [facility] Heart Rate 121 01/19/2016 [facility] Respitory Rate 18 01/19/2016 [facility] Temperature Oral (F) 99.2 F 01/19/2016 [facility] Systolic (mm Hg) 123 09/09/2014 [facility] Diastolic (mm Hg) 60 09/09/2014 [facility] Temperature Oral (F) 97.9 F 09/09/2014 [facility] Respitory Rate 18 09/09/2014 [facility] Heart Rate 68 09/09/2014 [facility] Weight 109.091 09/08/2014 [facility] BMI Calculated 38.82 09/08/2014 [facility] Height 167.64 cm 09/08/2014 [facility] Temperature Oral (F) 98.6 F 09/08/2014 [facility] Respitory Rate 18 09/08/2014 [facility] Heart Rate 85 09/08/2014 [facility] Systolic (mm Hg) 120 09/08/2014 [facility] Diastolic (mm Hg) 76 09/08/2014 [facility] Encounters Location Location Details Encounter Type Encounter Number Reason For Visit Attending Provider ADM Date DC Date Status Source [facility] [id number] 01 Juan Pablo Graff 09/08/2014 09/09/2014 [facility] Emergency [id number] Garrett Maldonado 01/19/2016 01/19/2016 [facility] Emergency [id number] Juan Pablo Graff 06/07/2016 06/07/2016 [facility] Observation [id number] Amir Ghebranious 06/19/2016 06/20/2016 [facility] Inpatient [id number] Amir Ghebranious 08/17/2016 08/20/2016 [facility] Observation [id number] Amir Ghebranious 09/08/2016 09/10/2016 [facility] Recurring [id number] Jamie Archer 10/18/2016 11/17/2016 [facility] Outpatient [id number] Brie Reeves 12/23/2016 12/24/2016 [facility] Emergency [id number] Lencho Berg 01/17/2017 01/18/2017 [facility] Emergency [id number] Jb Leslye 02/22/2018 02/23/2018 [facility] Neurosurgery [facility] Phone Message [id number] 10/25/2018 10/27/2018 [facility] [id number] [facility] 11/14/2018 [facility] Neurosurgery [facility] Outpatient [id number] [facility] 11/14/2018 11/15/2018 [facility] [id number] [facility] 12/11/2018 [facility] [facility] [id number] [facility] 12/11/2018 12/11/2018 [facility] Outpatient [id number] [facility] 02/23/2019 02/24/2019 [facility] Procedures Procedure Code Date Perfomer Comments Source Cholecystectomy [id number] [facility] Hernia repair [id number] [facility] Tasha-en-y gastric bypass [id number],[facility] Colonoscopy [id number] [facility] st Hysterectomy [id number] [facility] st Assessment and Plan Assessment and Plan Date Source Extracted from:Title: Clinical Document Author: Shiva Mcclure MD Date: 09/10/16 Progress Note - Daily [facility] Completed: Sep, 08:30 by Shiva Mcclure MD [...] QSHIFT 09/08/16 pantoprazole (Protonix) 40 mg I EDI SPECIALIST Before Breakfast Unscheduled Meds: None PRN Meds [...] EXAM PLAN and TREATMENT DIAGNOSES and PROBLEMS [id number] Ready for Discharge (Yes/No)? TEACHING ATTESTATION Extracted [...] history of kidney stones, herbal supplements, any zxuf-[id number] medications, chronic UTIs, chronic obstruction from the [...] All Problems HTN (hypertension) / SNOMED CT 3147408724 / Confirmed Diabetes / SNOMED CT 329660768 / Confirmed Bipolar disorder / SNOMED CT 8311769138 / Confirmed Anxiety / SNOMED CT 9342120234 / Confirmed Nausea / SNOMED CT 0350530634 / Confirmed HLD (hyperlipidemia) / SNOMED CT 45546591 / Confirmed, Active Problems (6) Anxiety Bipolar disorder Diabetes HLD (hyperlipidemia) HTN (hypertension) Nausea Histories Past Medical History: Active HTN (hypertension) (8181733815) Diabetes (093884452) HLD (hyperlipidemia) (05566318) Bipolar disorder (5716902924) Anxiety (1993719055) Family History: High blood pressure Father Mother Heart failure Father Bipolar disorder Brother Type 2 diabetes mellitus Mother Sister Father Myeloma Mother CA - Cancer of ovary Mother Stroke Sister Heart attack Father Hepatitis Brother Kidney stone Brother Deep vein thrombosis Father Back pain Father Procedure history: Cholecystectomy (55661567). Tasha-en-y gastric bypass (9848273702). Hernia repair (17763632). Social History Social and Psychosocial Habits Alcohol [...] atenolol and clonidine. Monitor very closely 09/10/2016 [facility] Extracted from:Title: Clinical Document Author: Shiva Mcclure MD Date: 08/20/16 Progress Note - Daily [facility] Completed: Saturday, AUGUST 20, 2016, 14:41 by Shiva Mcclure MD RM: 306 - 1D, SE C3BS VERONICA MURRELL 46y (: 1970) F Attending: Shiva Mcclure MD Service: Internal Medicine Reason for Admission: INTRACTABLE NAUSEA AND VOMITING Working DRG: Esophagitis, gastroent and misc digest disorders [place] [facility] Code status: Full Code [Ordered] Current diet: [...] EXAM PLAN and TREATMENT DIAGNOSES and PROBLEMS 1977231 Ready for Discharge (Yes/No)? TEACHING ATTESTATION 08/20/2016 [facility] Plan of Care No Data Provided for This Section Social History Social History Date Source Social History TypeResponse Alcohol Never Employment/School Status: Unemployed. Substance Abuse Use: None. Smoking Status Never smoker; Ready to change: No; Concerns about tobacco use in household: No; Exposure to Tobacco Smoke None; Cigarette Smoking Last 365 Days No; Reg Smoking Cessation Counseling No entered on: 12/11/18 12/06/2018 [facility] Social History TypeResponse Alcohol Never Smoking Status [...]
--- NOTE | 2019-09-06 13:40 | Emergency Department Note ---
History of Present Illnes History of Present Illness Chief Complaint: General Medicine Complaints History of Present Illness This is a 49 year old female arrives to the ED with complaints of right calf pain and cellulitis. Patient states she has been on Bactrim and Keflex as noted no relief in pain or swelling. 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 Any updates have been documented here. Past Medical History Recent Fever: No Clinical Suspicion of Infectio: No New/Unexplained Change in Ment: No Past Medical History: Hypertension Other Medical History: ANXIETY INSOMNIA Past Surgical History: Cholecysctectomy, Hysterectomy, T&A Other Surgery: GASTRIC BYPASS Social History Smoking Cessation: Never Smoker Counseling Performed: No Alcohol Use: None Any Illegal Drug Use: No TB Exposure/Symptoms: No Physically hurt or threatened: No Other Last Tetanus: UNKNOWN Any Pre-Existing Lines (PICC,: No Is patient up to date on immun: Yes Last Flu: utd Last Pneumovax: utd Review of Systems Review of Systems Constitutional: no symptoms, fever, weakness EENTM: no symptoms Cardiovascular: no symptoms Respiratory: no symptoms Gastrointestinal: no symptoms Genitourinary: no symptoms Musculoskeletal: no symptoms, joint swelling Neurological: no symptoms Psychological: no symptoms Endocrine: no symptoms Hematological/Lymphatic: no symptoms Review of other systems All other systems reviewed and negative. Physical Exam Related Data Allergies: Coded Allergies: No Known Drug Allergies (Verified Allergy, Mild, 07/17/07) Triage Vital Signs Vital Signs Date Time Temp Pulse Resp B/P (MAP) Pulse Ox O2 Delivery O2 Flow Rate FiO2 09/06/19 11:36 98.6 82 16 213/126 97 Physical Exam CONSTITUTIONAL Constitutional: well-developed, well-nourished HENT HENT: normocephalic, atraumatic, oropharynx clear/moist, nose normal HENT L/R: left ext ear normal, right ext ear normal EYES Eyes: PERRL, conjunctivae normal NECK Neck: ROM normal PULMONARY Pulmonary: effort normal, breath sounds normal CARDIOVASCULAR Cardiovascular: regular rhythm, heart sounds normal, capillary refill normal, normal rate GASTROINTESTINAL Abdominal: soft, nontender, bowel sounds normal GENITOURINARY Genitourinary: exam deferred SKIN Skin: warm, dry MUSCULOSKELETAL Musculoskeletal: other (right lower extremity swelling, erythema, tenderness over right calf- patient otherwise neurovascularly intact. Soft compartments) NEUROLOGICAL Neurological: alert, oriented x 3, no gross motor or sensory deficits PSYCHOLOGICAL Psychological: mood/affect normal, judgement normal Results Laboratory Result Diagram: 09/06/19 1149 09/06/19 1149 Laboratory Laboratory Tests Test 09/06/19 11:49 White Blood Count 8.75 x10e3/uL (4.8-10.8) Red Blood Count 3.87 x10e6/uL (3.6-5.1) Hemoglobin 11.6 g/dL (12.0-16.0) Hematocrit 35.9 % (34.2-44.1) Mean Corpuscular Volume 92.8 fL (81-99) Mean Corpuscular Hemoglobin 30.0 pg (28-32) Mean Corpuscular Hemoglobin Concent 32.3 g/dL (31-35) Red Cell Distribution Width 14.4 % (11.7-14.4) Platelet Count 218 x10e3/uL (140-360) Neutrophils (%) (Auto) 81.9 % (38.7-80.0) Lymphocytes (%) (Auto) 11.9 % (18.0-39.1) Monocytes (%) (Auto) 4.5 % (4.4-11.3) Eosinophils (%) (Auto) 1.0 % (0.0-6.0) Basophils (%) (Auto) 0.2 % (0.0-1.0) Neutrophils # (Auto) 7.2 (2.1-6.9) Lymphocytes # (Auto) 1.0 (1.0-3.2) Monocytes # (Auto) 0.4 (0.2-0.8) Eosinophils # (Auto) 0.1 (0.0-0.4) Basophils # (Auto) 0.0 (0.0-0.1) Absolute Immature Granulocyte (auto 0.04 x10e3/uL (0-0.1) Sodium Level 135 mmol/L (136-145) Potassium Level 5.2 mmol/L (3.5-5.1) Chloride Level 105 mmol/L (98-107) Carbon Dioxide Level 20 mmol/L (22-29) Anion Gap 15.2 mmol/L (8-16) Blood Urea Nitrogen 27 mg/dL (7-26) Creatinine 1.61 mg/dL (0.57-1.11) Estimat Glomerular Filtration Rate 34 ML/MIN (60-) BUN/Creatinine Ratio 17 (6-25) Glucose Level 214 mg/dL (74-118) Lactic Acid Level 2.3 mmol/L (0.5-2.0) Calcium Level 9.5 mg/dL (8.4-10.2) Total Bilirubin 0.4 mg/dL (0.2-1.2) Aspartate Amino Transf (AST/SGOT) 28 IU/L (5-34) Alanine Aminotransferase (ALT/SGPT) 22 IU/L (0-55) Alkaline Phosphatase 146 IU/L (40-150) Total Protein 7.5 g/dL (6.5-8.1) Albumin 4.0 g/dL (3.5-5.0) Globulin 3.5 g/dL (2.3-3.5) Albumin/Globulin Ratio 1.1 (0.8-2.0) Human Chorionic Gonadotropin, Qual Negative (NEGATIVE) Lab results reviewed: Yes Laboratory comments Potassium 5.2 noted, Kayexalate given Elevated lactic acidosis noted, repeat improved Imaging Imaging results reviewed: Yes Critical Care Time Subsequent provider I assumed direction of critical care for this patient from another provider of my specialty. Assessment & Plan Assessment & Plan Final Impression: (1) CELLULITIS OF RIGHT LOWER LIMB Assessment & Plan CBC, CMP, lactic acid Patient hospital admission for failing outpatient therapy Concerns of impending sepsis, patient was treated in the ED, blood cultures, lactic acid and broad-spectrum antibiotics given. Repeat lactic acid showed improvement. Patient admitted for further workup and management. Last Vital Signs Date Time Temp Pulse Resp B/P (MAP) Pulse Ox O2 Delivery O2 Flow Rate FiO2 09/06/19 12:56 98.9 71 14 147/108 100 Medications in the ED Sodium Chloride 1,000 ml @ 0 mls/hr Q0M STAT IV ; Start 09/06/19 at 11:55; Stop 09/06/19 at 11:59; Status DC Vancomycin HCl 250 ml @ 166.667 mls/hr ONCE STAT IV ; Start 09/06/19 at 11:55; Stop 09/06/19 at 13:24 Cefepime HCl 50 ml @ 50 mls/hr ONCE STAT IV ; Start 09/06/19 at 11:55; Stop 09/06/19 at 12:54; Status DC Hydralazine HCl 10 mg ONCE ONCE IV ; Start 09/06/19 at 12:00; Stop 09/06/19 at 12:10; Status DC ALCIDES ATWOOD DO Sep 06, 2019 13:40
[2019-09-06 16:26] VITALS: BP 165/98
[2019-09-06] MEDS ORDERED: ACETAMINOPHEN 325 MG TAB PO PRN (16:30)
[2019-09-06] MEDS ORDERED: LACTATED RINGER'S 1,000 ML INJ ONE (16:45)
[2019-09-06] MEDS ORDERED: CLONIDINE HCL 0.1 MG TAB PO PRN (16:45)
[2019-09-06 16:50] VITALS: BP 165/98
[2019-09-06 17:07] VITALS: BP 165/98
[2019-09-06] MEDS: LACTOBACILLUS ACIDOPHILUS CAPSULE PO SCH (18:00)
[2019-09-06] MEDS: ENOXAPARIN SOD INJ 40 MG/0.4 ML SYR SC SCH (18:00)
[2019-09-06] MEDS: CARVEDILOL 3.125 MG TAB PO SCH (18:00)
[2019-09-06] MEDS: HYDROCODONE/APAP 10MG-325MG TAB PO PRN (18:10)
--- NOTE | 2019-09-06 19:27 | Diagnostic Imaging Report ---
EXAM: ABDOMEN-1VIEW (KUB), DATE: 09/06/2019 6:00 PM INDICATION: Nausea. COMPARISON: None FINDINGS: LINES/TUBES: None. BOWEL PATTERN: No evidence for obstruction. Gas is present throughout small bowel loops and colon and rectum without abnormal distention. Stool is present within the ascending colon and rectosigmoid. Mild wall thickening of jejunal loops with mild thumbprinting is nonspecific finding, however, may reflect mild enteritis. SOFT TISSUES: Surgical anastomotic mild sutures projected on the left upper quadrant. LUNG BASES: Bibasilar subsegmental atelectasis. BONES: No acute findings. IMPRESSION: Nonobstructive bowel gas pattern. Mild wall thickening of jejunal loops with mild thumbprinting may reflect mild enteritis. Signed by: Dr. Beatris Glass M.D. on 09/06/2019 7:24 PM
[2019-09-06 20:00] VITALS: BP 165/98
[2019-09-06] MEDS ORDERED: DEXTROSE 50% SYRINGE 50 ML IV PRN (20:00)
[2019-09-06 20:31] VITALS: BP 134/86
[2019-09-06] MEDS: INSULIN LISPRO 100 UNIT/1 ML 3ML VIAL SQ SCH (21:00)
[2019-09-06] MEDS ORDERED: ZOLPIDEM TARTRATE 5 MG TAB PO PRN (21:00)
[2019-09-06] MEDS: ONDANSETRON HCL INJ 2MG/ML 2ML 2 MG/ML VIAL IV PRN (22:06)
--- NOTE | 2019-09-06 23:06 | History and Physical ---
PRIMARY CARE DOCTOR: Dr. Eduard Carlin. CHIEF COMPLAINT: Right calf redness. HISTORY OF PRESENT ILLNESS: This is a 49-year-old woman, who noticed what looked like bug bite last week on her right calf. It was itchy, so she scratched it and it progressively got worse. Three days ago, the patient went to see Dr. Carlin, who prescribed Keflex and Bactrim. The redness today got worse with more tenderness, therefore the patient came over here. The patient has some low-grade fever at home. Right now, has some headache, however, she is nauseated, possibly side effects from one of the antibiotics. No diarrhea. No abdominal pain. Denies the chest pain. No shortness of breath. No dysuria. PAST MEDICAL AND SURGICAL HISTORY: 1. Chronic back pain. 2. Hypertension. 3. Anxiety. 4. Previous gastric bypass surgery. 5. Previous cholecystectomy. 6. Previous hysterectomy. MEDICATIONS: Please see medication reconciliation form. ALLERGIES: NONE. SOCIAL HISTORY: Does not smoke. FAMILY HISTORY: Positive for hypertension. REVIEW OF SYSTEMS: A 10-point review of systems obtained, nothing else is significant other than what is stated in HPI. PHYSICAL EXAMINATION: VITAL SIGNS: Temperature 98.6, pulse 82, respiratory rate 16, initial blood pressure 213/146. GENERAL: No acute distress. SKIN: Right calf faint rash. HEENT: Oropharynx is clear. Anicteric. LUNGS: Clear. HEART: Regular rate and rhythm. Normal S1, S2. GI: Abdomen is soft, nondistended. MUSCULOSKELETAL: Painless full range of motion in joints. NEUROLOGIC: Cranial nerves alert and oriented x3. Cranial nerves II through XII intact. PSYCHIATRIC: No depression. LABORATORY DATA: White count 8.8, hemoglobin 11.6, platelet count 218. Creatinine is 1.61, potassium 5.2, sugar is 214. COVID is pending. ASSESSMENT AND PLAN: 1. Right calf cellulitis, failed outpatient therapy. I will put her on IV vancomycin, and reassess. Right leg venous Doppler is negative for DVT. 2. Elevated creatinine, possibly acute kidney injury with hyperkalemia, possibly due to Bactrim. We will continue to hydrate her. We will repeat creatinine in the morning. The patient got some Kayexalate. We will repeat her potassium. 3. Hypertensive crisis, partially due to pain, partially due to anxiety, partially due to the fact that she was not able to tolerate her blood pressure pill this morning. 4. Nausea and vomiting of unclear etiology. Zofran for now. We will check a KUB, possibly a side effect from her antibiotics. 5. Elevated blood sugar. We will check hemoglobin A1c, possibly GI and DVT prophylaxes. We will start Lovenox. Yandyching MD KINDRA Wheatley/TANESHA /[id number]
[2019-09-07] VITALS (7 sets, daily range): BP systolic 89–152; BP diastolic 57–96
[2019-09-07] MEDS: VANCOMYCIN 1GM/NS 250 ML 250 ML IV SCH ×2 (02:43→15:49)
[2019-09-07 05:55] LABS: BASOPHILS % 0.3 % (0.0-1.0); EOSINOPHILS # (AUTO) 0.1 (0.0-0.4); EOSINOPHILS % 1.7 % (0.0-6.0); HEMATOCRIT 29.2 % (34.2-44.1); LYMPHOCYTES # (AUTO) 1.4 (1.0-3.2); LYMPHOCYTES % 18.1 % (18.0-39.1); MEAN CORPUSCULAR HGB CONC 31.2 g/dL (31-35); MEAN CORPUSCULAR VOLUME 96.4 fL (81-99); MONOCYTES # (AUTO) 0.5 (0.2-0.8); MONOCYTES % 6.9 % (4.4-11.3); NEUTROPHILS # (AUTO) 5.5 (2.1-6.9); NEUTROPHILS % 72.5 % (38.7-80.0); PLATELET COUNT 180 x10e3/uL (140-360); RED BLOOD COUNT 3.03 x10e6/uL (3.6-5.1); RED CELL DISTRIBUTION WIDTH 14.6 % (11.7-14.4)
[2019-09-07 06:09] LABS: HEMOGLOBIN 9.1 g/dL (12.0-16.0)
[2019-09-07 06:31] LABS: ANION GAP 13.5 mmol/L (8-16); CALCIUM 8.2 mg/dL (8.4-10.2); CREATININE, SERUM 1.3 mg/dL (0.57-1.11); POTASSIUM 4.5 mmol/L (3.5-5.1)
[2019-09-07] MEDS: INSULIN LISPRO 100 UNIT/1 ML 3ML VIAL SQ SCH ×4 (08:40→21:00)
[2019-09-07] MEDS: CARVEDILOL 3.125 MG TAB PO SCH ×2 (09:52→18:11)
[2019-09-07] MEDS: LACTOBACILLUS ACIDOPHILUS CAPSULE PO SCH ×2 (09:56→18:11)
[2019-09-07] MEDS ORDERED: SODIUM CHLORIDE 0.9% 250ML 250 ML ONE (15:40)
[2019-09-07] MEDS: ONDANSETRON HCL INJ 2MG/ML 2ML 2 MG/ML VIAL IV PRN (15:52)
[2019-09-07] MEDS: METFORMIN HCL 500 MG TAB CR PO SCH (18:11)
[2019-09-07] MEDS: ENOXAPARIN SOD INJ 40 MG/0.4 ML SYR SC SCH (18:11)
[2019-09-08] VITALS (7 sets, daily range): BP systolic 108–132; BP diastolic 63–86
[2019-09-08 02:49] LABS: ANION GAP 15.8 mmol/L (8-16); CALCIUM 9.2 mg/dL (8.4-10.2); CREATININE, SERUM 1.58 mg/dL (0.57-1.11); POTASSIUM 4.8 mmol/L (3.5-5.1)
[2019-09-08 03:10] LABS: THYROID STIMULATING HORMONE 2.596 uIU/mL (0.350-4.940)
--- NOTE | 2019-09-08 03:25 | NUR ---
Received critical result- Vanco trough 19.9. Notified Dr. Long. New order to d/c Vancomycin.
[2019-09-08 05:43] LABS: BASOPHILS % 0.5 % (0.0-1.0); EOSINOPHILS # (AUTO) 0.1 (0.0-0.4); EOSINOPHILS % 2.4 % (0.0-6.0); HEMATOCRIT 30.6 % (34.2-44.1); HEMOGLOBIN 9.5 g/dL (12.0-16.0); LYMPHOCYTES # (AUTO) 1.6 (1.0-3.2); LYMPHOCYTES % 27.2 % (18.0-39.1); MEAN CORPUSCULAR HEMOGLOBIN 30.4 pg (28-32); MEAN CORPUSCULAR VOLUME 97.8 fL (81-99); MONOCYTES # (AUTO) 0.4 (0.2-0.8); MONOCYTES % 5.9 % (4.4-11.3); NEUTROPHILS # (AUTO) 3.8 (2.1-6.9); NEUTROPHILS % 63.5 % (38.7-80.0); PLATELET COUNT 177 x10e3/uL (140-360); RED BLOOD COUNT 3.13 x10e6/uL (3.6-5.1); RED CELL DISTRIBUTION WIDTH 14.4 % (11.7-14.4)
[2019-09-08] MEDS: INSULIN LISPRO 100 UNIT/1 ML 3ML VIAL SQ SCH ×4 (07:30→22:29)
[2019-09-08] MEDS: METFORMIN HCL 500 MG TAB CR PO SCH ×2 (10:09→17:33)
[2019-09-08] MEDS: CARVEDILOL 3.125 MG TAB PO SCH ×2 (10:09→17:33)
[2019-09-08] MEDS: LACTOBACILLUS ACIDOPHILUS CAPSULE PO SCH ×2 (10:09→17:33)
[2019-09-08] MEDS ORDERED: LACTOBACILLUS ACIDOPHILUS CAPSULE PO SCH (17:00)
[2019-09-08] MEDS: CLINDAMYCIN 300MG 50 ML IV SCH (17:33)
[2019-09-08] MEDS: ENOXAPARIN SOD INJ 40 MG/0.4 ML SYR SC SCH (17:33)
[2019-09-08] MEDS ORDERED: SODIUM CHLORIDE 0.9% 250ML 250 ML ONE (17:54)
[2019-09-08] MEDS: HYDROCODONE/APAP 10MG-325MG TAB PO PRN (19:14)
--- NOTE | 2019-09-08 20:41 | Progress Note ---
DATE: 09/08/2019 CONSULTANTS: None. CHIEF COMPLAINT: Right calf redness and pain. SUBJECTIVE: The patient reports right calf redness, swelling, and pain is improving some. She is afebrile, no nausea or vomiting. Vancomycin changed to clindamycin. PHYSICAL EXAMINATION: VITAL SIGNS: Temperature 97.4, pulse is 69, respirations 20, blood pressure 115/66, pulse ox is 99% on room air. GENERAL: No acute distress. HEENT: Normocephalic, atraumatic. NECK: Supple. CARDIOVASCULAR: Regular rate and rhythm. LUNGS: Clear to auscultation. ABDOMEN: Soft and nontender. NEUROLOGIC: Alert, awake, and oriented x3. MUSCULOSKELETAL: Moves all extremities. SKIN: Right lower extremity rash, redness and swelling. PSYCH: Calm. LABORATORY DATA: WBC 5.92, hemoglobin 9.5, hematocrit 30.6, platelet 177. Sodium 136, potassium 4.8, CO2 19, BUN is 29, creatinine 1.58. Estimated GFR 35, hemoglobin A1c 10.1, TSH 2.59, vanc trough 19.9, blood cultures negative. IMPRESSION: 1. Right calf cellulitis, failed outpatient therapy on Keflex and Bactrim. She was started on IV vancomycin, which is improving. Due to elevated creatinine, we will change to clindamycin. Right lower extremity venous Doppler was negative for deep vein thrombosis. 2. Acute kidney injury versus chronic kidney disease 3. May be due to medication induced. Creatinine is 1.59 today. We will continue to monitor closely and avoid nephrotoxic drugs. 3. Hypertension. Stable on her home medication. 4. Uncontrolled diabetes type 2. Sliding scale insulin coverage as needed. Hemoglobin A1c was 10.1. 5. Chronic back pain. Continue [place]. 6. Deep vein thrombosis prophylaxis. On Lovenox. PLAN: To continue current treatment, we will monitor on clindamycin and if continues to improve anticipate discharge home on p.o. clindamycin tomorrow. Dictated by JAVI Mejía Ralph Long MD MY/MODL /[id number]
[2019-09-09] VITALS: BP 160/85
[2019-09-09] MEDS: CLINDAMYCIN 300MG 50 ML IV SCH ×3 (00:14→12:56)
[2019-09-09 04:00] VITALS: BP 146/88
--- NOTE | 2019-09-09 07:05 | NUR ---
REPORT GIVEN TO DAYSHIFT NURSE. RESTING IN BED. IN STABLE CONDITION. NO SIGNS OF IV INFILTRATION. BED LOCKED AND IN LOW POSITION. CALL LIGHT WITHIN REACH.
[2019-09-09] MEDS: INSULIN LISPRO 100 UNIT/1 ML 3ML VIAL SQ SCH ×2 (07:30→14:39)
[2019-09-09 07:33] LABS: CALCIUM 9.5 mg/dL (8.4-10.2); CREATININE, SERUM 1.42 mg/dL (0.57-1.11)
[2019-09-09 08:00] VITALS: BP 148/88
[2019-09-09 09:20] VITALS: BP 148/88
[2019-09-09] MEDS: HYDROCODONE/APAP 10MG-325MG TAB PO PRN (10:48)
[2019-09-09] MEDS: LACTOBACILLUS ACIDOPHILUS CAPSULE PO SCH (10:49)
[2019-09-09] MEDS: CARVEDILOL 3.125 MG TAB PO SCH (10:49)
[2019-09-09] MEDS: METFORMIN HCL 500 MG TAB CR PO SCH (10:49)
[2019-09-09 12:00] VITALS: BP 129/84
[2019-09-09] MEDS: ONDANSETRON HCL INJ 2MG/ML 2ML 2 MG/ML VIAL IV PRN (12:45)
[2019-09-09] MEDS ORDERED: CLEOCIN HCL150 MG PO (13:33)
[2019-09-09] MEDS ORDERED: GLIPIZIDE5 MG PO (13:33)
[2019-09-09] MEDS ORDERED: Lactobacillus Acidophilus PO (13:36)
[2019-09-09] MEDS ORDERED: GLUCOPHAGE XR500 MG PO (13:36)
[2019-09-09] MEDS ORDERED: LOSARTAN POTASS25 MG PO (13:58)
[2019-09-09] MEDS ORDERED: CLONIDINE HCL0.1 MG PO (13:58)
[2019-09-09] MEDS ORDERED: MELOXICAM7.5 MG PO (13:59)
[2019-09-09] MEDS ORDERED: CLONAZEPAM0.5 MG PO (13:59)
[2019-09-09] MEDS ORDERED: ABILIFY5 MG PO (13:59)
[2019-09-09] MEDS ORDERED: TIZANIDINE HCL4 M1 PO (14:00)
[2019-09-09] MEDS ORDERED: LEXAPRO20 MG PO (14:01)
[2019-09-09] MEDS ORDERED: GABAPENTIN300 MG PO (14:01)
--- NOTE | 2019-09-09 20:53 | NUR ---
The patient was seen and examined on 09/08/19. Agree with the findings and plan as documented by JAVI Trimble.
--- NOTE | 2019-09-10 03:26 | Discharge Summary ---
PRIMARY CARE PHYSICIAN: Dr. Eduard Carlin. FINAL DISCHARGE DIAGNOSES: 1. Right calf cellulitis, failed outpatient therapy on Keflex and Bactrim. 2. Acute kidney injury. 3. Hypertension. 4. Uncontrolled diabetes type 2. 5. Chronic back pain. CONSULTANTS: None. PROCEDURES: None. HISTORY: Per HPI. HOSPITAL COURSE: This is a 49-year-old female with uncontrolled diabetes, presented with right calf redness and pain due to cellulitis. She had failed outpatient therapy on Keflex and Bactrim. So, was started on vancomycin and Zosyn in the ER. She seems to be improving on vancomycin, but her creatinine continued to worsen to 1.58. So, vancomycin was changed to clindamycin. Right lower extremity venous Doppler was negative for DVT. The redness, swelling, and tenderness have improved significantly. She is afebrile, vital signs stable, was monitored on clindamycin, which is improving. We will discharge home on p.o. clindamycin to follow up with her PCP in 1 to 2 weeks. She was educated on diabetic diet and medication compliance. Glipizide was added to her home medication, hemoglobin A1c is 10.1. Discussed with and the patient regarding diet and exercise. They verbalized understanding. PHYSICAL EXAMINATION: VITAL SIGNS: Temperature 97.8, pulse is 68, respirations 20, blood pressure 129/84, pulse ox is 99% on room air. GENERAL: No acute distress. HEENT: Normocephalic. CARDIOVASCULAR: Regular rate and rhythm. LUNGS: Clear to auscultation. ABDOMEN: Soft and nontender. NEUROLOGIC: Alert, awake, and oriented x3. MUSCULOSKELETAL: Moves all extremities. No edema. SKIN: Right lower extremity rash, redness and swelling, improving. CONDITION AT DISCHARGE: Improved and stable. DISCHARGE MEDICATIONS: Please see medication reconciliation list. FOLLOWUP: Follow up with PCP in 1 to 2 weeks. TIME SPENT: Total time of discharge is 35 minutes. Dictated by JAVI Mejía Ralph Long MD MY/MODL /[id number] cc: Eduard Carlin
== END 2019-09-09 16:00 | disposition home or self-care (01) | DRG 603 ==
LOC: ER 11:29 → ERHOLD 12:50 → MED/SURG2 16:13 → OBSVTOIN 09-07 14:07
PROVIDERS: ADMIT Internal Medicine; ATTEND Internal Medicine
DX: L03.115 Cellulitis of right lower limb (principal); N17.9 Acute kidney failure, unspecified; I16.9 Hypertensive crisis, unspecified; I10 Essential (primary) hypertension; G89.29 Other chronic pain; I12.9 Hypertensive chronic kidney disease with stage 1 through stage 4 chronic kidney disease, or unspecified chronic kidney disease; E11.22 Type 2 diabetes mellitus with diabetic chronic kidney disease; N18.3 Chronic kidney disease, stage 3 (moderate); E11.65 Type 2 diabetes mellitus with hyperglycemia
CPT/HCPCS: 36415; 74018; 80048; 80053; 80202; 82948; 83036; 83605; 84443; 84702; 85025; 87040; 87635; 93971; 99284; G0378; J0692; J1650; J2405; J3370; J7030; J7050; J7121

== ENCOUNTER 2019-09-11 14:45 | Inpatient (IN) | payer MEDICARE, OTHER ==
[~2019-09-11] VITALS: Ht 167.6 cm; Wt 81.6 kg
[~2019-09-11 14:45] MED LIST: ABILIFY5 MG PO; CLEOCIN HCL150 MG PO; CLONAZEPAM0.5 MG PO; CLONIDINE HCL0.1 MG PO; GABAPENTIN300 MG PO; GLIPIZIDE5 MG PO; GLUCOPHAGE XR500 MG PO; LEXAPRO20 MG PO; LOSARTAN POTASS25 MG PO; Lactobacillus Acidophilus PO; MELOXICAM7.5 MG PO; TIZANIDINE HCL4 M1 PO
--- OUTSIDE RECORDS SUMMARY | 2019-09-11 14:47 | XMS REPORT | Clinical Summary ---
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
--- OUTSIDE RECORDS SUMMARY | 2019-09-11 14:47 | XMS REPORT | Clinical Summary ---
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 Blood Pressure 67 04/19/2019 8:15 AM DRIVER OPERATOR Pulse 36.8 C (98.2 F) 04/19/2019 8:15 AM DRIVER OPERATOR Temperature 18 04/19/2019 8:15 AM DRIVER OPERATOR Respiratory Rate - - Oxygen Saturation - - Inhaled Oxygen Concentration 101.6 kg (224 lb) 04/19/2019 8:15 AM DRIVER OPERATOR Weight 167.6 cm (5' 6") 04/19/2019 8:15 AM DRIVER OPERATOR Height 36.15 04/19/2019 8:15 AM DRIVER OPERATOR Body Mass Index Plan of Treatment Care Team Description Date Type Specialty Cortez Umanzor MD [address] [facility] [address] [place] [address] 2 month follow up appointment [...] 50 to 75 Results Not on fileafter 09/10/2018 Insurance Type Payer Benefit Subscriber ID Effective Phone Address Plan / Dates Group MEDICARE MEDICARE xxxxxxxxxxx 2016-P [id number] [place] [address] [place] [id number] xxxxxxxxx 2016-P [id number] MEDICARE [place], [place] BENEFICIAR [id number] Y
--- OUTSIDE RECORDS SUMMARY | 2019-09-11 14:48 | XMS REPORT | Continuity of Care Document ---
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 Name Role Phone [employer] Unavailable Un available Problems Problem Status Onset Date Classification Date Reported Comments Source M54.16 RADICULOPATHY, LUMBAR REGION, M54 Active 02/13/[address] [facility] UNK Active 0 11/16/[address] [facility] Type 2 diabetes mellitus with hyperglycemia 03/01/2018 09/11/[address] [facility] Other disorder of circulatory system 02/22/2018 09/11/[address] [facility] Hyperglycemia, unspecified 02/22/2018 09/11/[address] [facility] Nausea with vomiting, unspecified 02/22/2018 09/11/[address] [facility] VOMITING Active 02/22/[address] [facility] Vomiting, unspecified 01/17/2017 01/20/[address] [facility] M79.89 Active 12/21/[address] [facility] VENOFER / 200MG / [id number] / 92271 / D50.9 Active 10/15/[address] [facility] ACUTE RENAL FAILURE Active 09/07/[address] [facility] N/V Active 0 09/07/[address] [facility] INTRACTABLE NAUSEA AND VOMITING Active 08/17/[address] [facility] SEVERE UNCONTROLLED HYPERTENSION Active 06/18/[address] [facility] AMS Active 0 06/18/[address] [facility] Unspecified abdominal pain 06/07/2016 06/10/[address] [facility] BACK PAIN Active 06/07/[address] [facility] Discharge Diagnosis: Acute esophagitis 01/19/2016 01/22/[address] [facility] Discharge Diagnosis: Nausea with vomiting 01/19/2016 01/22/[address] [facility] Discharge Diagnosis: Acid reflux 01/19/2016 01/22/[address] [facility] ABD PAIN/VOMITING Active 01/18/[address] [facility] Discharge Diagnosis: Right-sided chest wall pain 09/08/2014 09/11/[address] [facility] FLANK PAIN Active 09/08/[address] [facility] Anxiety (finding) Active Problem 02/25/2019 [facility] [place] [facility] Diabetes mellitus (disorder) A ctive Problem [facility] Hyperlipidemia (disorder) Acti ve Problem [facility] Hypertensive disorder, systemic arterial (disorder) Active Problem 02/25/2019 [facility] Bipolar disorder (disorder) Ac tive Problem [facility] Nausea (finding) Active Problem 02/25/2019 [facility] Degeneration of lumbar intervertebral disc (disorder) Active Problem 02/25/[address] [facility] Simple obesity (disorder) Acti ve Problem [facility] Essential (primary) hypertension 09/11/[address] [facility] Bariatric surgery status 09/11/[address] [facility] 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 09/11/[address] [facility] 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 09/11/[address] [facility] Other detention (current) drug therapy 09/11/[address] [facility] ESSENTIAL (PRIMARY) HYPERTENSION Active [facility] NAUSEA WITH VOMITING, UNSPECIFIED Active [facility] ACUTE KIDNEY FAILURE, UNSPECIFIED Active [facility] IRON DEFICIENCY ANEMIA, UNSPECIFIED Active [facility] OTHER SPECIFIED SOFT TISSUE DISORDERS Active [facility] RADICULOPATHY, LUMBAR REGION A ctive [facility] Medications Medication Details Route Status Patient Instructions Ordering Provider Order Date Source Senokot 2 tab, Route: PO, Dosi ng Weight 97.784, kg, Daily, Start date: 12/12/18 9:00:00 CDT, Duration: 30 day, Stop date: 01/10/19 9:00:00 CDT No Longer Active 12/12/[address] [facility] heparin sodium, porcine 2500 UNT/ML Injectable Solutio n 5,000 unit, Route: SUB-Q, Drug form: INJ, Q12H, Dosing Weight 97.784, kg, Start date: 12/12/18 8:00:00 CDT, Duration: 30 day, Stop date: 01/10/19 21:00:00 CDT No Longer Active 12/12/[address] [facility] Famotidine 20 MG Oral Tablet [Pepcid] 20 mg, 1 tab, Route: PO, Drug form: TAB, Q12H, Dosing Weight 97.784, kg, Start date: 12/11/18 21:00:00 CDT, Duration: 30 day, Stop date: 01/10/19 9:00:00 CDT Inactive 12/12/[address] [facility] Docusate Sodium 100 MG Oral Capsule [Colace] 100 mg, 1 cap, Route: PO, BID, Dosing Weight 97.784, kg, Start date: 12/11/18 17:00:00 CDT, Duration: 30 day, Stop date: 01/10/19 9:00:00 CDT Inactive 12/11/[address] [facility] Oxycodone Hydrochloride 5 MG Oral Tablet 10 mg, Route: PO, Drug form: TAB, ONCE, Dosing Weight 97.784, kg, PRN Pain Score 7-10, Start date: 12/11/18 13:02:00 CDT Inactive 12/11/[address] [facility] ondansetron (ANES) Route: IV, Drug form: INJ, ONCE, Stop date: 12/11/18 12:00:00 CDT Inactive 12/11/[address] [facility] glycopyrrolate (ANES) Route: I V, Drug form: INJ, ONCE, Stop date: 12/11/18 12:00:00 CDT Inactive 12/11/[address] [facility] neostigmine (ANES) Route: IV, Drug form: INJ, ONCE, Stop date: 12/11/18 12:00:00 CDT Inactive 12/11/[address] [facility] metoclopramide ([facility]) Route: I V, Drug form: INJ, ONCE, Stop date: 12/11/18 12:00:00 CDT Inactive 12/11/[address] [facility] Acetaminophen 325 MG / Hydrocodone Derian trate 10 MG Oral Tablet [Stratton 10/325] 1 tab, PO, Q6H, # 60 tab, 0 Refill(s), g iven to patient Active 12/11/[address] [facility] Sodium Chloride 0.9% IV 1000 mL 1,000 mL, Rate: 75 ml/hr, Infuse over: 13.3 hr, Route: IV, Dosing Weight 97.784 kg, Total Volume: 1,000, Start date: 12/11/18 11:49:00 CDT, Duration: 30 day, Stop date: 01/10/19 11:48:00 CDT, 2.16, m2 Inactiv e 12/11/[address] [facility] Cefazolin 1 gm, Route: IVPB, D rug form: INJ, Q8H, Dosing Weight 97.784, kg, Start date: 12/11/18 11:49:00 CDT, Duration: 3 doses or times, Stop date: 12/12/18 0:00:00 CDT, ABX Indication: Surgical Prophylaxis Inactive 12/11/[address] [facility] Tylenol 650 mg, Route: PO, Jose g form: TAB, Q4H, Dosing Weight 97.784, kg, PRN Pain, Start date: 12/11/18 11:49:00 CDT, Duration: 30 day, Stop date: 01/10/19 11:48:00 CDT Inactive 12/11/[address] [facility] Dilaudid 0.5 mg, Route: IV, Q3 H, Dosing Weight 97.784, kg, PRN Pain, Start date: 12/11/18 11:49:00 CDT, Duration: 30 day, Stop date: 01/10/19 11:48:00 CDT Inactive 12/11/[address] [facility] Acetaminophen 325 MG / Hydrocodone Derian trate 5 MG Oral Tablet 1 tab, Route: PO, Drug Form: TAB, Dosing Weight 97.784, kg, Q4H, PRN Pain, Start date: 12/11/18 11:49:00 CDT, Duration: 30 day, Stop date: 01/10/19 11:48:00 CDT Inactive 12/11/[address] [facility] Zofran 4 mg, Route: IV, Drug f orm: INJ, Q8H, Dosing Weight 97.784, kg, PRN Nausea, Start date: 12/11/18 11:49:00 CDT, Duration: 30 day, Stop date: 01/10/19 11:48:00 CDT Inactive 12/11/[address] [facility] magnesium citrate 300 ml, Rout e: PO, Drug Form: LIQ, Dosing Weight 97.784, kg, ONCE, PRN Constipation, Start date: 12/11/18 11:49:00 CDT Inactive 12/11/[address] [facility] lidocaine (ANES) Route: IV, Dr ug form: INJ, ONCE, Stop date: 12/11/18 11:19:00 CDT Inactive 12/11/[address] [facility] rocuronium (ANES) Route: IV, D rug form: INJ, ONCE, Stop date: 12/11/18 11:14:00 CDT Inactive 12/11/[address] [facility] fentaNYL (ANES) Route: IV, Jose g form: INJ, ONCE, Stop date: 12/11/18 11:03:00 CDT Inactive 12/11/[address] [facility] ceFAZolin (ANES) Route: IV, Dr ug form: INJ, ONCE, Stop date: 12/11/18 11:03:00 CDT Inactive 12/11/[address] [facility] propofol (ANES) Route: IV, Jose g form: INJ, ONCE, Stop date: 12/11/18 11:03:00 CDT Inactive 12/11/[address] [facility] midazolam (ANES) Route: IV, Dr ug form: SOLN, ONCE, Stop date: 12/11/18 10:58:00 CDT Inactive 12/11/[address] [facility] Lactated Ringers Injection IV (ANES) 1000 mL Route: IV, Total Volume: 1,000, Start date: 12/11/18 10:28:00 CDT, Stop date: 12/11/18 11:28:00 CDT Inactive 12/11/[address] [facility] Insulin regular 3 unit, Route: IV, ONCE, Dosing Weight 97.784, kg, Start date: 12/11/18 10:04:00 CDT, Stop date: 12/11/18 10:04:00 CDT Inactive 12/11/[address] [facility] Calcium Chloride 0.0014 MEQ/ML / Potassi um Chloride 0.004 MEQ/ML / Sodium Chloride 0.103 MEQ/ML / Sodium Lactate 0.028 MEQ/ML Injectable Solution 1,000 mL, Rate: 75 ml/hr, Infuse over: 1 3.3 hr, Route: IV, Dosing Weight 97.784 kg, Total Volume: 1,000, Start date: 12/11/18 9:38:00 CDT, Duration: 30 day, Stop date: 01/10/19 9:37:00 CDT, 2.16, m2 Inactive 12/11/[address] [facility] Sodium Chloride 0.9% IV 1000 mL 1,000 mL, Rate: 75 ml/hr, Infuse over: 13.3 hr, Route: IV, Dosing Weight 97.784 kg, Total Volume: 1,000, Start date: 12/11/18 9:38:00 CDT, Duration: 30 day, Stop date: 01/10/19 9:37:00 CDT, 2.16, m2 Inactive 12/11/[address] [facility] Insulin regular 5 unit, Route: IV, ONCE, Dosing Weight 97.784, kg, Start date: 12/11/18 9:30:00 CDT, Stop date: 12/11/18 9:30:00 CDT Inactive 12/11/[address] [facility] Clonidine 0 Refill(s) Active 11/14/2018 [facility] gabapentin 300 MG Oral Capsule 300 mg = 1 cap, PO, TID, 0 Refill(s) Active 11/14/2018 [facility] Zolpidem tartrate 10 MG Oral Tablet [Ambien] 10 mg = 1 tab, PO, Bedtime, 0 Refill(s) Active 11/14/2018 [facility] tizanidine PO, 0 Refill(s) Active 11/14/2018 [facility] Acetaminophen 325 MG / Hydrocodone Derian trate 10 MG Oral Tablet [Stratton 10/325] 1 tab, PO, Q6H, 0 Refill(s) Active 11/14/2018 [facility] Losartan PO, Daily, 0 Refill(s) Active 11/14/2018 [facility] ARIPiprazole 0 Refill(s) Active 11/14/2018 [facility] Metformin hydrochloride 500 MG Oral Tablet 500 mg = 1 tab, PO, BID-Meals, # 60 tab, 0 Refill(s) Active 02/23/[address] [facility] Clonidine Hydrochloride 0.1 MG Oral Tablet 0.1 mg = 1 tab, PO, BID, # 60 tab, 3 Refill(s) Active 02/23/[address] [facility] Ondansetron 4 MG Oral Tablet [Zofran] 4 mg = 1 tab, PO, BID, # 10 tab, 0 Refill(s) Active 02/23/[address] [facility] Sodium Chloride 0.9% (Bolus) IV 1,000 mL, 1000 ml/hr, Infuse Over: 1 hr, Route: IV, 1,000, Drug form: INJ, ONCE, Priority: STAT, Dosing Weight 81.818 kg, Start date: 02/22/18 18:33:00 [employer]ESP[employer], Stop date: 02/22/18 18:33:00 [employer]ESPERSON [employer] Inactive 02/23/[address] [facility] Atenolol Notes: (Same As: min) Inactive 02/23/[address] [facility] Clonidine Notes: (Same As: Cat apres) Inactive 02/23/[address] [facility] Sodium Chloride 0.9% (Bolus) IV 1,000 mL, 1000 ml/hr, Infuse Over: 1 hr, Route: IV, 1,000, Drug form: INJ, ONCE, Priority: STAT, Dosing Weight 81.818 kg, Start date: 02/22/18 18:31:00 SALESPERSON [employer], Stop date: 02/22/18 18:31:00 [employer]ESP[employer] Inactive 02/23/[address] [facility] Labetalol 10 mg, 2 mL, Route: IV, Drug form: INJ, ONCE, Dosing Weight 81.818, kg, Start date: 02/22/18 17:05:00 [employer]ESPERSON [employer], Stop date: 02/22/18 17:05:00 [employer]ESPERSON [employer] Inactive 02/22/[address] [facility] Sodium Chloride 0.9% IV 984.8 mL + M.V.I .-12 10 mL Daily + folic acid IV 1 mg Daily + thiamine IV 5 984.8 mL, Rate: 100 ml/hr, Infuse over: 10 hr, Route: IV, Dosing Weight 81.818 kg, Total Volume: 1,000, Start date: 02/22/18 17:02:00 SALESPERSON [employer], Duration: 1 doses or times, Stop date: 02/23/18 3:01:00 [employer]ESPERSON [employer], 1.97, m2 Inactive 02/22/[address] [facility] Sodium Chloride 0.9% (Bolus) IV 1,000 mL, 1000 ml/hr, Infuse Over: 1 hr, Route: IV, 1,000, Drug form: INJ, ONCE, Priority: STAT, Dosing Weight 81.818 kg, Start date: 02/22/18 16:59:00 SALESPERSON [employer], Stop date: 02/22/18 16:59:00 [employer]ESPERSON [employer] Inactive 02/22/[address] [facility] Zofran Notes: (Same as: Zofran ) MEDICATION WASTE Product Size: 4 mg Product Wasted: ___ mg Inactive 02/22/[address] [facility] Sodium Chloride 0.9% IV 984.8 mL + M.V.I .-12 10 mL Daily + folic acid IV 1 mg Daily + thiamine IV 5 Notes: PROTECT FROM LIGHT REFRIGERATE Inactive 02/22/[address] [facility] Ondansetron 4 MG Oral Tablet [Zofran] 4 mg = 1 tab, PO, BID, # 10 tab, 0 Refill(s) Active 01/18/[address] [facility] Ranitidine 150 MG Oral Tablet [Zantac] 150 mg = 1 tab, PO, BID, # 60 tab, 0 Refill(s) Active 01/18/[address] [facility] GI cocktail 30 mL, Route: PO, Dosing Weight 91.818, kg, ONCE, STAT, Start date: 01/17/17 20:34:00 CDT, Stop date: 01/17/17 20:34:00 CDT Inactive 01/18/[address] [facility] Morphine 4 mg, Route: IVP, ONC E, Dosing Weight 91.818, kg, Priority: STAT, Start date: 01/17/17 16:43:00 CDT, Stop date: 01/17/17 16:43:00 CDT Inactive 01/17/[address] [facility] Ondansetron 4 mg, Route: IVP, Drug form: INJ, ONCE, Dosing Weight 91.818, kg, Priority: STAT, Start date: 01/17/17 16:43:00 CDT, Stop date: 01/17/17 16:43:00 CDT Inactive 01/17/[address] [facility] NS (Bolus) IV 1,000 mL, 1,000 ml/hr, Infuse Over: 1 hr, Route: IV, 1,000, Drug form: INJ, ONCE, Priority: STAT, Dosing Weight 91.818 kg, Start date: 01/17/17 13:56:00 CDT, Duration: 1 doses or times, Stop date: 13:56:00 CDT Inactive 01/17/[address] [facility] sodium chloride 0.9% 1000 ml INJ 984.8 m L + M.V.I.-12 10 mL Daily + folic acid IV 1 mg Daily + thia Notes: send to 2E Inactive 01/17/[address] [facility] Saline Flush 0.9% Notes: (Same as: BD Posiflush) Inactive 01/17/[address] [facility] Venofer + sodium chloride 0.9% INJ 90 mL Notes: Each 5ml contains 100mg elemental iron. Mix with NS Non-Formulary (Same as:Venofer) Administer IV only. MEDICATION WASTE Product Size: 100 mg Product Wasted: 0 mg Inactive 11/15/[address] [facility] Venofer + sodium chloride 0.9% INJ 90 mL Notes: Each 5ml contains 100mg elemental iron. Mix with NS Non-Formulary (Same as:Venofer) Administer IV only. MEDICATION WASTE Product Size: 100 mg Product Wasted: 0 mg Inactive 11/08/[address] [facility] Venofer + sodium chloride 0.9% INJ 90 mL Notes: Each 5ml contains 100mg elemental iron. Mix with NS Non-Formulary (Same as:Venofer) Administer IV only. MEDICATION WASTE Product Size: 100 mg Product Wasted: ___ mg No Longer Active 11/01/[address] [facility] Venofer + sodium chloride 0.9% INJ 90 mL Notes: Each 5ml contains 100mg elemental iron. Mix with NS Non-Formulary (Same as:Venofer) Administer IV only. MEDICATION WASTE Product Size: 100 mg Product Wasted: ___ mg Inactive 10/25/[address] [facility] Venofer + sodium chloride 0.9% INJ 90 mL Notes: Each 5ml contains 100mg elemental iron. Mix with NS Non-Formulary (Same as:Venofer) Administer IV only. MEDICATION WASTE Product Size: 100 mg Product Wasted: ___ mg Inactive 10/18/[address] [facility] amLODIPine 10 mg oral tablet 1 0 mg = 1 tab, PO, Daily, # 90 tab, 1 Refill(s), Pharmacy: [facility] [place] [id number] Active 09/10/[address] [facility] Atenolol 50 MG Oral Tablet 50 mg = 1 tab, PO, BID, # 60 tab, 2 Refill(s), Pharmacy: [facility] [id number] Active 09/10/[address] [facility] Lurasidone Hydrochloride 80 MG Oral Tablet [Latuda] 80 mg, PO, Daily, 0 Refill(s) Active 09/10/[address] [facility] insulin detemir 100 units/mL subcutaneous solution 8 unit, SUB-Q, Bedtime, # 15 mL, 0 Refill(s) Active 09/10/[address] [facility] Insulin Aspart 100 unit/ml - (Starting CD) 8 unit, SUB- Q, TID-Before Meals, # 30 mL, 0 Refill(s), Pharmacy: [facility] [id number] Active 09/10/[address] [facility] Clonidine Hydrochloride 0.1 MG Oral Tablet 140, # 60 tab, 2 Refill(s), Pharmacy: [facility] [id number] Active 09/10/[address] [facility] Ondansetron 4 MG Oral Tablet [Zofran] 4 mg = 1 tab, PO, Q6H, PRN Nausea/Vomiting, X 8 day, # 30 tab, 0 Refill(s) Active 09/09/[address] [facility] Amlodipine Notes: (Same as: No rvasc) Inactive 09/09/[address] [facility] Insulin Glargine 100 UNT/ML Injectable S olution [Lantus] 8 unit, Route: SUB-Q, Bedtime, Dosing We ight 88.182, kg, Start date: 09/08/16 21:00:00 CDT, Duration: 30 day, Stop date: 10/07/16 21:00:00 CDT Inactive 09/09/[address] [facility] insulin detemir Notes: Same as Levemir Do not hold insulin without contacting prescriber WASTE: F/P - Black; E - Municipal Trash Bin "single patient use only" No Longer Active 09/09/[address] [facility] Clonidine Hydrochloride 0.1 MG Oral Tablet Notes: (Same As: Catapres) No Longer Active 09/08/[address] [facility] Humalog 8 unit, Route: SUB-Q, TID-Before Meals, Dosing Weight 88.182, kg, Start date: 09/08/16 16:30:00 CDT, Duration: 30 day, Stop date: 10/08/16 11:30:00 CDT Inactive 09/08/[address] [facility] insulin aspart Notes: Roll in palms of hands gently; Do not shake vigorously. (Same as: NovoLOG) "single patient use only" WASTE: F/P - Black; E - Municipal Trash Bin Stable for 28 days at room temperature. Expires in days from Date No Longer Active 09/08/[address] [facility] Atenolol 50 MG Oral Tablet Not es: (Same As:Tenormin) No Longer Active 09/08/[address] [facility] Amlodipine Notes: (Same as: No rvasc) No Longer Active 09/08/[address] [facility] Losartan Notes: (Same as: Gerardo swanson) No Longer Active 09/08/[address] [facility] Latuda 80 mg, Route: PO, Drug form: TAB, Daily, Dosing Weight 88.182, kg, Start date: 09/08/16 9:00:00 CDT, Duration: 30 day, Stop date: 10/07/16 9:00:00 CDT No Longer Active 09/08/[address] [facility] Nurse pls bring pt's own med: Latuda to pharmacy Nurse pls bring pt's own med: Latuda to pharmacy, reminder, Drug form: MISC, Route: MISC, QSHIFT, 09/08/16 8:00:00 CDT, Duration: 30 day, Stop date: 10/08/16 0:00:00 CDT No Longer Active 09/08/[address] [facility] Protonix Notes: For IV push re constitute with 10 ml 0.9% sodium chloride and push over 2 minutes. (Same as: Protonix) No Longer Active 09/08/[address] [facility] Phenergan Notes: Do not give I V push. (Same as: Phenergan) No Longer Active 09/08/[address] [facility] zolpidem Notes: (Same As: Ambi en) No Longer Active 09/08/[address] [facility] zolpidem 10 mg, Route: PO, Jose g form: TAB, Bedtime, Dosing Weight 88.182, kg, PRN Sleep, Start date: 09/08/16 4:51:00 CDT, Duration: 30 day, Stop date: 10/08/16 4:50:00 CDT Inactive 09/08/[address] [facility] Insulin, Aspart, Human Notes: Roll in palms of hands gently; Do not shake vigorously. (Same as: NovoLOG) "single patient use only" WASTE: F/P - Black; E - [employer] Trash Bin Stable for 28 days at room temperature. Expires in days from Date No Longer Active 09/08/[address] [facility] Dextrose 50% Syringe 12.5 gm, 25 mL, Route: IVP, Drug Form: INJ, Dosing Weight 88.182, kg, PRN, PRN Blood Glucose Results, Start date: 09/08/16 4:49:00 CDT, Duration: 30 day, Stop date: 10/08/16 4:48:00 CDT No Longer Active 09/08/[address] [facility] Glucagon 1 mg, Route: IM, Drug form: PDR/INJ, PRN, Dosing Weight 88.182, kg, PRN Blood Glucose Results, Start date: 09/08/16 4:49:00 CDT, Duration: 30 day, Stop date: 10/08/16 4:48:00 CDT No Longer Active 09/08/[address] [facility] Sodium Chloride 0.154 MEQ/ML Injectable Solution 1,000 mL, Rate: 125 ml/hr, Infuse over: 8 hr, Route: IV, Dosing Weight 88.182 kg, Total Volume: 1,000, Start date: 09/08/16 4:47:00 CDT, Duration: 30 day, Stop date: 10/08/16 4:46:00 CDT No Longer Active 09/08/[address] [facility] Saline Flush 0.9% Notes: (Same as: BD Posiflush) No Longer Active 09/08/[address] [facility] Ondansetron Notes: (Same as: Jace kingsley) MEDICATION WASTE Product Size: 4 mg Product Wasted: ___ mg No Longer Active 09/08/[address] [facility] Morphine Notes: (Same as:MORPh ine Sulfate) No Longer Active 09/08/[address] [facility] Acetaminophen 325 MG / Hydrocodone Derian trate 5 MG Oral Tablet Notes: (Same as: Stratton 325/5) Do not ex ceed 4gm/day of acetaminophen. No Longer Active 09/08/[address] [facility] Metoclopramide 10 mg, Route: I DIE CAST ENGINEER, Drug form: INJ, ONCE, Dosing Weight 88.182, kg, Priority: STAT, Start date: 09/08/16 2:44:00 CDT, Stop date: 09/08/16 2:44:00 CDT Inactive 09/08/[address] [facility] Sodium Chloride 0.154 MEQ/ML Injectable Solution 1,000 mL, Infuse Over: 1 hr, Route: IV, ONCE, Priority: STAT, Dosing Weight 88.182 kg, Start date: 09/08/16 2:15:00 CDT, Duration: 1 doses or times, Stop date: 09/08/16 2:15:00 CDT Inactive 09/08/[address] [facility] Zofran 4 mg, Route: IVP, Drug form: INJ, ONCE, Dosing Weight 88.182, kg, Priority: STAT, Start date: 09/08/16 0:49:00 CDT, Stop date: 09/08/16 0:49:00 CDT Inactive 09/08/[address] [facility] Morphine 4 mg, Route: IVP, ONC E, Dosing Weight 88.182, kg, Priority: STAT, Start date: 09/08/16 0:49:00 CDT, Stop date: 09/08/16 0:49:00 CDT Inactive 09/08/[address] [facility] Protonix Notes: Tablet should not be chewed or crushed. (Same as: Protonix) No Longer Active 08/21/[address] [facility] Vitamin C Notes: (Same as: Vit fink C) No Longer Active 08/21/[address] [facility] ascorbic acid 500 mg oral tablet 500 mg = 1 tab, PO, Daily, # 30 tab, 0 Refill(s) Active 08/20/[address] [facility] Atenolol 25 MG Oral Tablet 50 mg = 2 tab, PO, Daily, # 30 tab, 0 Refill(s) Active 08/20/[address] [facility] ferrous sulfate 325 mg oral enteric coated tablet 325 mg = 1 tab, PO, TID, # 90 tab, 0 Refill(s) Active 08/20/[address] [facility] pantoprazole 40 mg oral enteric coated tablet 40 mg = 1 tab, PO, Before Dinner, # 30 tab, 0 Refill(s) Active 08/20/[address] [facility] thiamine 100 mg oral tablet 10 0 mg = 1 tab, PO, Daily, # 30 tab, 0 Refill(s) Inactive 08/20/[address] [facility] ferrous sulfate Notes: Give wi th food. "Do Not Crush" Inactive 08/20/[address] [facility] multivitamin with iron Notes: Same as Iron/C/B12/FA/SA Inactive 08/20/[address] [facility] Thiamine 100 mg, Route: PO, Dr ug form: TAB, Daily, Dosing Weight 91.364, kg, Start date: 08/20/16 9:00:00 CDT, Duration: 30 day, Stop date: 09/18/16 9:00:00 CDT No Longer Active 08/20/[address] [facility] Protonix Notes: For IV push re constitute with 10 ml 0.9% sodium chloride and push over 2 minutes. (Same as: Protonix) Inactive 08/20/[address] [facility] atenolol 25 mg oral tablet Not es: (Same As:Tenormin) No Longer Active 08/20/[address] [facility] amLODIPine Notes: (Same as: No rvasc) No Longer Active 08/20/[address] [facility] Sodium Chloride 0.154 MEQ/ML Injectable Solution 1,000 mL, Rate: 25 ml/hr, Infuse over: 40 hr, Route: IV, Dosing Weight 91.364 kg, Total Volume: 1,000, Start date: 08/19/16 14:44:00 CDT, Duration: 30 day, Stop date: 09/18/16 14:43:00 CDT Inactive 08/19/[address] [facility] Vasotec Notes: (Same as: Vasot ec-IV) No Longer Active 08/19/[address] [facility] Atenolol 25 MG Oral Tablet [Tenormin] Notes: (Same As:Tenormin) No Longer Active 08/18/[address] [facility] zolpidem Notes: (Same As: Ambi en) No Longer Active 08/18/[address] [facility] metFORMIN extended release Not es: (Same as: Glucophage XR) "Do Not Crush" No Longer Active 08/18/[address] [facility] Latuda 80 mg, Route: PO, Drug form: TAB, Daily, Dosing Weight 91.364, kg, Start date: 08/18/16 9:00:00 CDT, Duration: 30 day, Stop date: 09/16/16 9:00:00 CDT No Longer Active 08/18/[address] [facility] Losartan Notes: (Same as: Coza ar) No Longer Active 08/18/[address] [facility] Klonopin Notes: (Same As: Klon oPIN) No Longer Active 08/18/[address] [facility] Amlodipine Notes: (Same as: No rvasc) No Longer Active 08/18/[address] [facility] Insulin, Aspart, Human Notes: Roll in palms of hands gently; Do not shake vigorously. (Same as: NovoLOG) "single patient use only" WASTE: F/P - Black; E - Municipal Trash Bin Stable for 28 days at room temperature. Expires in days from Date No Longer Active 08/18/[address] [facility] Dextrose 50% Syringe 25 gm, 50 mL, Route: IVP, Drug Form: INJ, Dosing Weight 91.364, kg, PRN, PRN Blood Glucose Results, Start date: 08/18/16 8:40:00 CDT, Duration: 30 day, Stop date: 09/17/16 8:39:00 CDT No Longer Active 08/18/[address] [facility] Glucagon 1 mg, Route: IM, Drug form: PDR/INJ, PRN, Dosing Weight 91.364, kg, PRN Blood Glucose Results, Start date: 08/18/16 8:40:00 CDT, Duration: 30 day, Stop date: 09/17/16 8:39:00 CDT No Longer Active 08/18/[address] [facility] zolpidem 10 mg, Route: PO, Jose g form: TAB, Bedtime, Dosing Weight 91.364, kg, PRN Sleep, Start date: 08/18/16 8:38:00 CDT, Duration: 30 day, Stop date: 09/17/16 8:37:00 CDT Inactive 08/18/[address] [facility] Magnesium Sulfate Notes: WASTE : F/P - Sink; E - Municipal Trash Bin Inactive 08/18/[address] [facility] sodium chloride 0.9% 1000 ml INJ 1,000 mL 1,000 mL, Rate: 125 ml/hr, Infuse over: 8 hr, Route: IV, Dosing Weight 91.364 kg, Total Volume: 1,000, Start date: 08/18/16 1:58:00 CDT, Duration: 30 day, Stop date: 09/17/16 1:57:00 CDT No Longer Active 08/18/[address] [facility] Zofran Notes: (Same as: Zofran ) MEDICATION WASTE Product Size: 4 mg Product Wasted: ___ mg No Longer Active 08/18/[address] [facility] Phenergan Notes: Do not give I V push. (Same as: Phenergan) No Longer Active 08/18/[address] [facility] Morphine Notes: (Same as:MORPh ine Sulfate) No Longer Active 08/18/[address] [facility] Clonazepam 0.5 MG Oral Tablet [Klonopin] 0.5 mg = 1 tab, PO, BID, # 60 tab, 0 Refill(s) Active 08/18/[address] [facility] Morphine 4 mg, Route: IVP, ONC E, Dosing Weight 91.364, kg, Priority: STAT, Start date: 08/17/16 23:55:00 CDT, Stop date: 08/17/16 23:55:00 CDT Inactive 08/18/[address] [facility] Protonix 40 mg, Route: IVP, ON CE, Dosing Weight 91.364, kg, Priority: STAT, Start date: 08/17/16 21:54:00 CDT, Stop date: 08/17/16 21:54:00 CDT Inactive 08/18/[address] [facility] Sodium Chloride 0.154 MEQ/ML Injectable Solution 1,000 mL, Infuse Over: 1 hr, Route: IV, ONCE, Priority: STAT, Dosing Weight 91.364 kg, Start date: 08/17/16 21:54:00 CDT, Duration: 1 doses or times, Stop date: 08/17/16 21:54:00 CDT Inactive 08/18/[address] [facility] Promethazine 12.5 mg, Route: I VPB, ONCE, Dosing Weight 91.364, kg, Priority: STAT, Start date: 08/17/16 21:54:00 CDT, Stop date: 08/17/16 21:54:00 CDT Inactive 08/18/[address] [facility] Zofran 4 mg, Route: IVP, Drug form: INJ, ONCE, Dosing Weight 91.364, kg, Priority: STAT, Start date: 08/17/16 21:16:00 CDT, Stop date: 08/17/16 21:16:00 CDT Inactiv e 08/18/[address] [facility] Sodium Chloride 0.154 MEQ/ML Injectable Solution 1,000 mL, Infuse Over: 1 hr, Route: IV, ONCE, Priority: STAT, Dosing Weight 91.364 kg, Start date: 08/17/16 20:13:00 CDT, Duration: 1 doses or times, Stop date: 08/17/16 20:13:00 CDT Inactive 08/18/[address] [facility] Morphine Notes: (Same as:MORPh ine Sulfate) Inactive 08/18/[address] [facility] Sodium Chloride 0.154 MEQ/ML Injectable Solution 1,000 mL, 1,000 ml/hr, Infuse Over: 1 hr, Route: IV, 1,000, Drug form: INJ, ONCE, Priority: STAT, Dosing Weight 90.2 kg, Start date: 08/17/16 18:26:00 CDT, Duration: 1 doses or times, Stop date: 08/17/16 18:26:00 CDT Inactive 08/17/[address] [facility] Zofran Notes: (Same as: Zofran ) MEDICATION WASTE Product Size: 4 mg Product Wasted: ___ mg Inactive 08/17/[address] [facility] 24 HR venlafaxine 75 MG Extended Release Capsule [Effexor] 75 mg = 1 cap, PO, Daily, # 30 cap, 0 Refill(s) Active 06/20/[address] [facility] venlafaxine Notes: (Same As: E ffexor) Inactive 06/20/[address] [facility] latuda 80mg tab latuda 80mg ta b, 1 tab, Drug form: MISC, Route: PO, Daily, 06/20/16 9:00:00 CDT, Duration: 30 day, Stop date: 07/19/16 9:00:00 CDT Inactive 06/20/[address] [facility] Amlodipine Notes: (Same as: No rvasc) No Longer Active 06/20/[address] [facility] Clonidine Hydrochloride 0.1 MG Oral Tablet Notes: (Same As: Catapres) No Longer Active 06/20/[address] [facility] Latuda 80 mg, Route: PO, Daily , Dosing Weight 90.2, kg, Start date: 06/19/16 19:31:00 CDT, Duration: 30 day, Stop date: 07/19/16 9:00:00 CDT Inactive 06/20/[address] [facility] Tylenol Notes: Do not exceed 4 gm/day. (Same as: Tylenol) No Longer Active 06/19/[address] [facility] Protonix Notes: Tablet should not be chewed or crushed. (Same as: Protonix) No Longer Active 06/19/[address] [facility] Lorazepam Notes: (Same as: Gertrude hdez) Inactive 06/19/[address] [facility] Zofran Notes: (Same as: Zofran ) MEDICATION WASTE Product Size: 4 mg Product Wasted: ___ mg No Longer Active 06/19/[address] [facility] Lurasidone Hydrochloride 80 MG Oral Tablet [Latuda] 80 mg = 1 tab, PO, Daily, 0 Refill(s) Active 06/19/[address] [facility] Losartan Notes: (Same as: Gerardo swanson) No Longer Active 06/19/[address] [facility] Fluoxetine Route: PO, Drug for m: CAP, Daily, Dosing Weight 90.2, kg, Start date: 06/19/16 9:00:00 CDT, Duration: 30 day, Stop date: 07/18/16 9:00:00 CDT Inactive 06/19/[address] [facility] Benztropine Notes: (Same As: Barbra mcleod) No Longer Active 06/19/[address] [facility] pneumococcal capsular polysaccharide typ e 1 vaccine / pneumococcal capsular polysaccharide type 10A vaccine / pneumococcal capsular polysaccharide type 11A vaccine / pneumococcal capsular polysaccharide type 12F vaccine / pneumococcal capsular polysacchar Notes: (Same as: Pneumovax 23) Refrigerate Inactive 06/19/[address] [facility] influenza virus vaccine, inactivated Notes: (Same as: Fluzone Quadrivalent, Fluarix Quadrivalent) For 3 years of age and older (0.5 mL IM) Shake well before use Inactive 06/19/[address] [facility] venlafaxine Notes: (Same As: Candelaria ffexor) Inactive 06/19/[address] [facility] Omeprazole 40 mg, Route: PO, D rug form: DRC, Daily, Dosing Weight 90.2, kg, Start date: 06/19/16 9:00:00 CDT, Duration: 30 day, Stop date: 07/18/16 9:00:00 CDT Inactive 06/19/[address] [facility] metFORMIN extended release Not es: (Same as: Glucophage XR) "Do Not Crush" No Longer Active 06/19/[address] [facility] benztropine 2 mg oral tablet 1 /2 tablet, PO, BID, 0 Refill(s) Active 06/19/[address] [facility] amLODIPine 5 mg oral tablet 5 mg = 1 tab, PO, Bedtime, 0 Refill(s) Active 06/19/[address] [facility] losartan 100 mg oral tablet 10 0 mg = 1 tab, PO, Daily, 0 Refill(s) Active 06/19/[address] [facility] FLUoxetine 20 mg oral capsule 4, PO, Daily, 0 Refill(s) Inactive 06/19/[address] [facility] zolpidem 10 mg oral tablet 10 mg = 1 tab, PO, Bedtime, PRN as needed for sleep, 0 Refill(s) Active 06/19/[address] [facility] metFORMIN extended release 500 mg, PO, Daily, 0 Refill(s) Active 06/19/[address] [facility] venlafaxine 37.5 mg oral tablet, extended release 37.5 mg = 1 tab, PO, Daily, 0 Refill(s) No Longer Active 06/19/[address] [facility] Labetalol Notes: (Same as: Arie lawrence Trandate) Push over 2 minutes Give bolus over 2-3 minutes. Inactive 06/19/[address] [facility] Cardura Notes: (Same as: Maribel suresh) Inactive 06/19/[address] [facility] Hydralazine Notes: (Same as: A presoline) Push over 5 minutes Inactive 06/19/[address] [facility] Prazosin 2 mg, Route: PO, ONCE , Dosing Weight 81.818, kg, Start date: 06/19/16 2:11:00 CDT, Stop date: 06/19/16 2:11:00 CDT Inactive 06/19/[address] [facility] Heparin 40 unit/kg Bolus (Heparin Dosing Weight) Pharmacy To Manage, Route: IVP, PRN, Drug form: INJ, PRN, Heparin Protocol, Start date: 06/19/16 2:06:00 CDT Stop date: 07/19/16 2:05:00 CDT, 30 day Inactive 06/19/[address] [facility] heparin additive 25,000 unit [18 unit/kg /hr] + Premix Diluent Dextrose 5% 500 mL 500 mL, Rate: 29.45 ml/hr, Infuse over: 17 hr, Route: IV, Dosing Weight 81.818 kg, Total Volume: 500 mL, Start date: 06/19/16 2:06:00 CDT, Duration: 30 day, Stop date: 07/19/16 2:05:00 CDT Inactive 06/19/[address] [facility] Heparin - one time bolus for DVT/PE 5,000 unit, Route: IVP, Drug form: INJ, ONCE, Dosing Weight 81.818, kg, Priority: STAT, Start date: 06/19/16 2:06:00 CDT, Stop date: 06/19/16 2:06:00 CDT Inactive 06/19/[address] [facility] Heparin 80 unit/kg Bolus (Heparin Dosing Weight) Pharmacy To Manage, Route: IVP, PRN, Drug form: INJ, PRN, Heparin Protocol, Start date: 06/19/16 2:06:00 CDT Stop date: 07/19/16 2:05:00 CDT, 30 day Inactive 06/19/[address] [facility] Labetalol 20 mg, Route: IVP, D rug form: INJ, ONCE, Dosing Weight 81.818, kg, Priority: STAT, Start date: 06/19/16 1:54:00 CDT, Stop date: 06/19/16 1:54:00 CDT Inactive 06/19/[address] [facility] Lorazepam 1 mg, Route: IVP, Dr ug form: INJ, ONCE, Dosing Weight 81.818, kg, Priority: STAT, Start date: 06/19/16 1:54:00 CDT, Stop date: 06/19/16 1:54:00 CDT Inactive 06/19/[address] [facility] Hydralazine Notes: (Same as: A presoline) Push over 5 minutes No Longer Active 06/19/[address] [facility] Saline Flush 0.9% Notes: (Same as: BD Posiflush) No Longer Active 06/19/[address] [facility] Ondansetron 4 MG Oral Tablet [Zofran] 4 mg = 1 tab, PO, BID, X 5 day, # 10 tab, 0 Refill(s) Active 06/07/[address] [facility] tramadol hydrochloride 50 MG Oral Tablet [Ultram] 50 mg = 1 tab, PO, Q4H, PRN pain, X 3 day, # 20 tab, 0 Refill(s) Active 06/07/[address] [facility] Zofran Notes: (Same as: Zofran ) MEDICATION WASTE Product Size: 4 mg Product Wasted: ___ mg Inactive 06/07/[address] [facility] Morphine Notes: (Same as:MORPh ine Sulfate) Inactive 06/07/[address] [facility] omeprazole 40 mg oral delayed release capsule 40 mg = 1 cap, PO, Daily, # 30 cap, 1 Refill(s) Active 01/19/[address] [facility] promethazine 25 mg oral tablet 25 mg = 1 tab, PO, Q8H, PRN Nausea/Vomiting, X 10 day, # 30 tab, 1 Refill(s) Active 01/19/[address] [facility] GI cocktail 30 mL, Route: PO, Dosing Weight 100, kg, ONCE, STAT, Start date: 01/19/16 6:27:00 CDT, Stop date: 01/19/16 6:27:00 CDT Inactive 01/19/[address] [facility] Zofran 8 mg, Route: IV, ONCE, Dosing Weight 100, kg, Start date: 01/19/16 6:20:00 CDT, Stop date: 01/19/16 6:20:00 CDT Inactive 01/19/[address] [facility] sodium chloride 0.9% INJ 250 mL 250 mL, 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[employer] for use with blood product administration., Dosing Weight 100, kg, Route: IV, Total Volume: 250, Priority: Routine, Start Date: 01/19/16 2:13:00 CDT, Duration: 1 day, Stop date: 01/20/16 2:12:00 CDT, Replace Every: 24 hr Inactive 01/19/[address] [facility] Morphine 4 mg, Route: IVP, ONC E, Dosing Weight 100, kg, Priority: STAT, Start date: 01/19/16 2:13:00 CDT, Stop date: 01/19/16 2:13:00 CDT Inactive 01/19/[address] [facility] Ondansetron 4 mg, Route: IVP, ONCE, Dosing Weight 100, kg, Priority: STAT, Start date: 01/19/16 2:13:00 CDT, Stop date: 01/19/16 2:13:00 CDT Inactive 01/19/[address] [facility] pantoprazole 80 mg, Route: IVP , ONCE, Dosing Weight 100, kg, For IV push reconstitute with 10 ml 0.9% sodium chloride and push over at least 3 minutes, Priority: STAT, Start date: 01/19/16 2:13:00 CDT, Stop date: 01/19/16 2:13:00 CDT Inactive 01/19/[address] [facility] Sodium Chloride 0.154 MEQ/ML Injectable Solution 1,000 mL, 2,000 ml/hr, Infuse Over: 30 minutes, Route: IV, ONCE, Priority: STAT, Dosing Weight 100 kg, Start date: 01/19/16 2:13:00 CDT, Duration: 1 doses or times, Stop date: 01/19/16 2:13:00 CDT Inactive 01/19/[address] [facility] Saline Flush 0.9% Notes: (Same as: BD Posiflush) Inactive 01/19/[address] [facility] Ketorolac Tromethamine 10 MG Oral Tablet 10 mg = 1 tab, PO, Q6H, X 5 day, # 20 tab, 0 Refill(s) Active 09/08/[address] [facility] Ketorolac 4 days MEDICA TION WASTE Product Size: 30 mg Product Wasted: _15__ mg Inactive 09/08/[address] [facility] Zofran 4 mg, Route: IVP, Drug form: INJ, ONCE, Dosing Weight 109.091, kg, Priority: STAT, Start date: 09/08/14 16:35:00, Stop date: 09/08/14 16:35:00 Inactive 09/08/[address] [facility] Morphine 4 mg, Route: IVP, Jose g form: INJ, ONCE, Dosing Weight 109.091, kg, Priority: STAT, Start date: 09/08/14 16:35:00, Stop date: 09/08/14 16:35:00 Inactive 09/08/[address] [facility] Saline Flush 0.9% Notes: (Same as: BD Posiflush) Inactive 09/08/[address] [facility] Allergies, Adverse Reactions, Alerts Substance Category Reaction Severity Reaction type Status Date Reported Comments Source lisinopril Assertion Drug allergy Active [facility] Immunizations Immunization Date Given Site Status Last Updated Comments Source pneumococcal 23-valent vaccine 06/19/2016 Right deltoid completed [facility] influenza virus vaccine, inactivated 06/19/2016 Left deltoid completed [facility] Results Order Name Results Value Reference Range Date Interpretation Comments Source SPECIAL CHEMISTRY Hgb A1C 11.7 <=5.6 % 12/06/[address] [facility] BLOOD BANK RESULTS ABO/Rh A POS 12/06/[address] [facility] BLOOD BANK RESULTS Antibody Scrn Negative (12/06/18 12:44 PM) 12/06/[address] [facility] ELECTROLYTES AGAP 10.6 10.0 - 20.0 12/06/[address] [facility] ELECTROLYTES B/C Ratio 15 6 - 25 12/06/[address] [facility] ELECTROLYTES Globulin 3.7 2.7 - 4.2 12/06/[address] [facility] ELECTROLYTES A/G Ratio 0.9 0.7 - 1.6 12/06/[address] [facility] ELECTROLYTES Glucose Lvl 291 70 - 99 12/06/[address] [facility] ELECTROLYTES BUN 19 7 - 22 12/06/[address] [facility] ELECTROLYTES Creatinine Lvl 1.2 9 0.50 - 1.40 12/06/[address] [facility] ELECTROLYTES Sodium Lvl 139 135 - 145 12/06/[address] [facility] ELECTROLYTES Potassium Lvl 4.6 3.5 - 5.1 12/06/[address] [facility] ELECTROLYTES Chloride Lvl 105 95 - 109 12/06/[address] [facility] ELECTROLYTES CO2 28 24 - 32 12/06/[address] [facility] ELECTROLYTES Calcium Lvl 9.0 8.5 - 10.5 12/06/[address] [facility] ELECTROLYTES Total Protein 7.1 6.4 - 8.4 12/06/[address] [facility] ELECTROLYTES Albumin Lvl 3.4 3.5 - 5.0 12/06/[address] [facility] ELECTROLYTES ALT 25 0 - 65 12/06/[address] [facility] ELECTROLYTES AST 11 0 - 37 12/06/[address] [facility] ELECTROLYTES Alk Phos 113 39 - 136 12/06/[address] [facility] ELECTROLYTES Bili Total 0.4 0.2 - 1.3 12/06/[address] [facility] ELECTROLYTES eGFR 49 12/06/2018 Result Comment: [...] should be multiplied by the estimated BMI. [facility] HEMATOLOGY WBC 4.4 3.7 - 10.4 12/06/[address] [facility] HEMATOLOGY RBC 3.74 4.20 - 5.40 12/06/[address] [facility] HEMATOLOGY Hgb 11.2 12.0 - 16.0 12/06/[address] [facility] HEMATOLOGY Hct 34.1 36.0 - 48.0 12/06/2018 [facility] MCV 91.2 80.0 - 98.0 12/06/2018 [facility] MCH 30.0 27.0 - 31.0 12/06/2018 [facility] MCHC 32.9 32.0 - 36.0 12/06/[address] [facility] HEMATOLOGY RDW 17.6 11.5 - 14.5 12/06/2018 [facility] Platelet 183 133 - 450 12/06/[address] [facility] HEMATOLOGY MPV 8.8 7.4 - 10.4 12/06/[address] [facility] HEMATOLOGY PT 11.8 12.0 - 14.7 12/06/[address] [facility] HEMATOLOGY INR 0.88 0.85 - 1.17 12/06/[address] [facility] HEMATOLOGY PTT 31.5 22.9 - 35.8 12/06/[address] [facility] HEMATOLOGY Segs 65.1 45.0 - 75.0 12/06/2018 [facility] Lymphocytes 27.4 20.0 - 40.0 12/06/2018 [facility] Monocytes 6.0 2.0 - 12.0 12/06/[address] [facility] HEMATOLOGY Eosinophils 1.0 0.0 - 4.0 12/06/[address] [facility] HEMATOLOGY Basophils 0.5 0.0 - 1.0 12/06/2018 [facility] Neutrophils # 2.9 1.5 - 8.1 12/06/2018 [facility] Lymphocytes # 1.2 1.0 - 5.5 12/06/2018 [facility] Monocytes # 0.3 0.0 - 0.8 12/06/[address] [facility] URINE AND STOOL UA Bili Negative *NA* (02/22/18 3:31 PM) Negative 02/22/[address] [facility] URINE AND STOOL UA Nitrite Negative (02/22/18 3:31 PM) Negative 02/22/[address] [facility] URINE AND STOOL UA Blood Negative (02/22/18 3:31 PM) Negative 02/22/[address] [facility] URINE AND STOOL UA Leuk Est Negative (02/22/18 3:31 PM) Negative 02/22/[address] [facility] URINE AND STOOL UA Urobilinogen <=1.0 mg/dL 0.1 - 1.0 02/22/2018 [facility] URINE AND STOOL UA Sq Epi Occasional /LPF Few /LPF 02/22/[address] [facility] URINE AND STOOL UA WBC 1 0 - 5 02/22/[address] [facility] URINE AND STOOL UA RBC 1 0 - 2 02/22/[address] [facility] URINE AND STOOL UA Color Ltyellow 02/22/[address] [facility] URINE AND STOOL UA Turbidity Clear (02/22/18 3:31 PM) Clear 02/22/[address] [facility] URINE AND STOOL UA Spec Grav 1.026 <=1.030 02/22/[address] [facility] URINE AND STOOL UA Glucose 500 mg/dL Negative mg/dL 02/22/[address] [facility] URINE AND STOOL UA pH 5.0 5.0 - 8.0 02/22/[address] [facility] URINE AND STOOL UA Ketones Negative *NA* (02/22/18 3:31 PM) Negative 02/22/[address] [facility] URINE AND STOOL UA Protein 100 mg/dL Negative mg/dL 02/22/[address] [facility] CARDIAC ENZYMES Troponin-I <0.02 0.00 - 0.40 02/22/[address] [facility] CARDIAC ENZYMES BNP 65 <=100 pg/mL 02/22/[address] [facility] CHEM PANEL Lipase Lvl 359 73 - 393 02/22/[address] [facility] CHEM PANEL Globulin 4.2 2.7 - 4.2 02/22/[address] [facility] CHEM PANEL B/C Ratio 20 6 - 25 02/22/[address] [facility] CHEM PANEL AGAP 17.4 10.0 - 20.0 02/22/[address] [facility] CHEM PANEL A/G Ratio 0.8 0.7 - 1.6 02/22/[address] [facility] CHEM PANEL eGFR 48 02/22/2018 Result [...] should be multiplied by the estimated BMI. [facility] CHEM PANEL Alk Phos 116 39 - 136 02/22/[address] [facility] CHEM PANEL Bili Total 0.5 0.2 - 1.3 02/22/[address] [facility] CHEM PANEL AST 25 0 - 37 02/22/[address] [facility] CHEM PANEL ALT 47 0 - 65 02/22/[address] [facility] CHEM PANEL Albumin Lvl 3.2 3.5 - 5.0 02/22/[address] [facility] CHEM PANEL Total Protein 7.4 6.4 - 8.4 02/22/[address] [facility] CHEM PANEL Calcium Lvl 9.0 8.5 - 10.5 02/22/[address] [facility] CHEM PANEL Chloride Lvl 101 95 - 109 02/22/2018 [facility] CHEM PANEL CO2 18 24 - 32 02/22/2018 [facility] CHEM PANEL Potassium Lvl 4.4 3.5 - 5.1 02/22/[address] [facility] CHEM PANEL Creatinine Lvl 1.32 0.50 - 1.40 02/22/[address] [facility] CHEM PANEL Sodium Lvl 132 135 - 145 02/22/[address] [facility] CHEM PANEL BUN 27 7 - 22 02/22/[address] [facility] CHEM PANEL Glucose Lvl 379 70 - 99 02/22/[address] [facility] CHEM PANEL VITAMIN B1 (THIAMINE) WHO LE BLOOD 107.0 66.5 - 200.0 02/22/2018 Result Comment:
This t est was developed and its performance characteristics
determined by [employer]. It has not been cleared or
approved by the Food and Drug Administration .
Performed At: [facility]
[address] [place] [address] [id number]
Bryan Lunsford MD Ph:[phone] [facility] Basophils 0.3 0.0 - 1.0 02/22/2018 [facility] Neutrophils # 7.1 1.5 - 8.1 02/22/[address] [facility] HEMATOLOGY Lymphocytes # 1.4 1.0 - 5.5 02/22/[address] [facility] HEMATOLOGY Lymphocytes 15.0 20.0 - 40.0 02/22/[address] [facility] HEMATOLOGY Monocytes 5.9 2.0 - 12.0 02/22/2018 [facility] Monocytes # 0.5 0.0 - 0.8 02/22/[address] [facility] HEMATOLOGY Eosinophils 0.2 0.0 - 4.0 02/22/2018 [facility] RBC Morph Keisha l (02/22/18 2:21 PM) 02/22/[address] [facility] HEMATOLOGY Segs 78.6 45.0 - 75.0 02/22/2018 [facility] HEMATOLOGY Plt Morph See N ote 2 (02/22/18 2:21 PM) 02/22/2018 Result Comment: Due to occassional clumps, the actual count may be slightly higher. 02/22/2018 19:[address] [facility] HEMATOLOGY Hct 38.7 36.0 - 48.0 02/22/2018 [facility] MCH 30.8 27.0 - 31.0 02/22/[address] [facility] HEMATOLOGY MCV 90.4 80.0 - 98.0 02/22/2018 [facility] MCHC 34.1 32.0 - 36.0 02/22/2018 [facility] RDW 16.8 11.5 - 14.5 02/22/2018 [facility] Platelet 149 133 - 450 02/22/2018 [facility] MPV 9.3 7.4 - 10.4 02/22/2018 [facility] WBC 9.0 3.7 - 10.4 02/22/2018 [facility] Hgb 13.2 12.0 - 16.0 02/22/2018 [facility] RBC 4.27 4.20 - 5.40 02/22/[address] [facility] VIRAL - SEROLOGY Influ B Negative (01/17/17 4:52 PM) Negative 01/17/[address] [facility] VIRAL - SEROLOGY Influ A Negative (01/17/17 4:52 PM) Negative 01/17/[address] [facility] BLOOD BANK RESULTS ABO/Rh A POS 01/17/[address] [facility] BLOOD BANK RESULTS Antibody Scrn Negative (01/17/17 4:21 PM) 01/17/[address] [facility] CHEM PANEL Lipase Lvl 144 73 - 393 01/17/[address] [facility] CHEM PANEL Amylase Lvl 110 25 - 115 01/17/[address] [facility] CHEM PANEL A/G Ratio 0.9 0.7 - 1.6 01/17/[address] [facility] CHEM PANEL Globulin 4.7 2.7 - 4.2 01/17/[address] [facility] CHEM PANEL AGAP 12.9 10.0 - 20.0 01/17/[address] [facility] CHEM PANEL B/C Ratio 13 6 - 25 01/17/[address] [facility] CHEM PANEL Total Protein 9.0 6.4 - 8.4 01/17/[address] [facility] CHEM PANEL Calcium Lvl 9.4 8.5 - 10.5 01/17/[address] [facility] CHEM PANEL CO2 24 24 - [...] Glucose Lvl 64 70 - 99 01/17/[address] [facility] CHEM PANEL Creatinine Lvl 1.20 0.50 - 1.40 01/17/2017 [facility] CHEM PANEL BUN 16 7 - 22 01/17/2017 [facility] CHEM PANEL Sodium Lvl 138 135 - 145 01/17/[address] [facility] HEMATOLOGY Segs-Bands # 4.9 1.5 - 8.1 01/17/[address] [facility] HEMATOLOGY Basophils 0.5 0.0 - 1.0 01/17/[address] [facility] HEMATOLOGY Monocytes 5.2 2.0 - 12.0 01/17/[address] [facility] HEMATOLOGY Eosinophils 0.9 0.0 - 4.0 01/17/[address] [facility] HEMATOLOGY Lymphocytes 28.1 20.0 - 40.0 01/17/[address] [facility] HEMATOLOGY Segs 65.3 45.0 - 75.0 01/17/[address] [facility] HEMATOLOGY Lymphocytes # 2.1 1.0 - 5.5 01/17/[address] [facility] HEMATOLOGY Monocytes # 0.4 0.0 - 0.8 01/17/[address] [facility] HEMATOLOGY Eosinophils # 0.1 0.0 - 0.5 01/17/[address] [facility] HEMATOLOGY RBC Morph Keisha l (01/17/17 4:21 PM) 01/17/[address] [facility] HEMATOLOGY Plt Morph Keisha l (01/17/17 4:21 PM) 01/17/2017 [facility] MCH 27.1 27.0 - 31.0 01/17/2017 [facility] MCHC 32.6 32.0 - 36.0 01/17/2017 [facility] MPV 9.2 7.4 - 10.4 01/17/2017 [facility] MCV 83.2 80.0 - 98.0 01/17/2017 [facility] Hct 41.6 36.0 - 48.0 01/17/2017 [facility] Hgb 13.6 12.0 - 16.0 01/17/[address] [facility] HEMATOLOGY Platelet 169 133 - 450 01/17/2017 [facility] RDW 17.1 11.5 - 14.5 01/17/2017 [facility] RBC 5.00 4.20 - 5.40 01/17/[address] [facility] HEMATOLOGY WBC 7.6 3.7 - 10.4 01/17/[address] [facility] URINE AND STOOL UA Blood Negative (01/17/17 4:21 PM) Negative 01/17/[address] [facility] URINE AND STOOL UA Nitrite Negative (01/17/17 4:21 PM) Negative 01/17/2017 [facility] URINE AND STOOL UA Leuk Est Negative (01/17/17 4:21 PM) Negative 01/17/2017 [facility] URINE AND STOOL UA Sq Epi Occasional /LPF Few /LPF 01/17/2017 [facility] URINE AND STOOL UA RBC 2 0 - 2 01/17/2017 [facility] URINE AND STOOL UA Bacteria Occasional /HPF None Seen /HPF 01/17/[address] [facility] [address] URINE AND STOOL UA Color Ltyellow 01/17/2017 [facility] URINE AND STOOL UA WBC 2 0 - 5 01/17/2017 [facility] URINE AND STOOL UA Glucose Negative mg/dL Negative mg/dL 01/17/2017 [facility] [address] URINE AND STOOL UA Ketones Negative mg/dL Negative mg/dL 01/17/2017 [facility] URINE AND STOOL UA Bili Negative *NA* (01/17/17 4:21 PM) Negative 01/17/[address] [facility] URINE AND STOOL UA Urobilinogen <=1.0 mg/dL 0.1 - 1.0 01/17/2017 [facility] URINE AND STOOL UA pH 7.0 5.0 - 8.0 01/17/[address] [facility] URINE AND STOOL UA Protein Negative mg/dL Negative mg/dL 01/17/2017 [facility] URINE AND STOOL UA Turbidity Clear (01/17/17 4:21 PM) Clear 01/17/[address] [facility] URINE AND STOOL UA Spec Grav 1.006 <=1.030 01/17/[address] [facility] URINE CHEM U Preg Negat adan (01/17/17 4:21 PM) Negative 01/17/[address] [facility] CHEM PANEL Creatinine Lvl 2.00 0.50 - 1.40 09/10/[address] [facility] CHEM PANEL BUN 32 7 - 22 09/10/[address] [facility] CHEM PANEL Sodium Lvl 139 135 - 145 09/10/[address] [facility] CHEM PANEL Chloride Lvl 107 95 - 109 09/10/[address] [facility] CHEM PANEL Potassium Lvl 4.1 3.5 - 5.1 09/10/[address] [facility] CHEM PANEL Glucose Lvl 151 70 - 99 09/10/[address] [facility] CHEM PANEL AGAP 14.1 10.0 - 20.0 09/10/[address] [facility] CHEM PANEL CO2 22 24 - 32 09/10/[address] [facility] CHEM PANEL Calcium Lvl 8.7 8.5 - 10.5 09/10/[address] [facility] CHEM PANEL eGFR 29 09/10/2016 Result [...] should be multiplied by the estimated BMI. [facility] HEMATOLOGY MPV 9.9 7.4 - 10.4 09/10/2016 [facility] RBC 4.28 4.20 - 5.40 09/10/2016 [facility] WBC 6.4 3.7 - 10.4 09/10/2016 [facility] Hgb 8.8 12.0 - 16.0 09/10/[address] [facility] HEMATOLOGY Hct 29.1 36.0 - 48.0 09/10/2016 [facility] MCV 67.9 80.0 - 98.0 09/10/2016 [facility] MCH 20.6 27.0 - 31.0 09/10/2016 [facility] Platelet 182 133 - 450 09/10/2016 [facility] MCHC 30.3 32.0 - 36.0 09/10/2016 [facility] RDW 18.6 11.5 - 14.5 09/10/[address] [facility] URINE AND STOOL UA Bili Negative *NA* (09/10/16 3:06 AM) Negative 09/10/[address] [facility] URINE AND STOOL UA WBC 5 0 - 5 09/10/[address] [facility] URINE AND STOOL UA Leuk Est Trace *ABN* (09/10/16 3:06 AM) Negative 09/10/[address] [facility] URINE AND STOOL UA Sq Epi Few /LPF Few /LPF 09/10/[address] [facility] URINE AND STOOL UA Blood Negative (09/10/16 3:06 AM) Negative 09/10/[address] [facility] URINE AND STOOL UA Nitrite Negative (09/10/16 3:06 AM) Negative 09/10/[address] [facility] URINE AND STOOL UA RBC <1 0 - 2 09/10/[address] [facility] URINE AND STOOL UA Bacteria Occasional /HPF None Seen /HPF 09/10/2016 [facility] URINE AND STOOL UA Urobilinogen <=1.0 mg/dL 0.1 - 1.0 09/10/2016 [facility] URINE AND STOOL UA Color Ltyellow 09/10/[address] [facility] URINE AND STOOL UA Protein Negative mg/dL Negative mg/dL 09/10/2016 [facility] URINE AND STOOL UA Spec Grav 1.009 <=1.030 09/10/[address] [facility] URINE AND STOOL UA pH 5.0 5.0 - 8.0 09/10/[address] [facility] URINE AND STOOL UA Glucose Negative mg/dL Negative mg/dL 09/10/[address] [facility] [address] URINE AND STOOL UA Ketones Negative mg/dL Negative mg/dL 09/10/[address] [facility] [address] URINE AND STOOL UA Turbidity Clear (09/10/16 3:06 AM) Clear 09/10/[address] [facility] URINE CHEM U Eos None Seen (09/10/16 3:06 AM) None Seen 09/10/[address] [facility] URINE CHEM U Urea 472 09/10/[address] [facility] URINE CHEM U Sodium 48 09/10/[address] [facility] URINE CHEM U Microalb 21.5 09/10/[address] [facility] URINE CHEM U Creatinine 120.00 09/10/[address] [facility] URINE CHEM U Alb/Crea 17.9 <=30.0 mcg/mg creat 09/10/[address] [facility] CHEM PANEL eGFR 25 09/09/2016 Result [...] should be multiplied by the estimated BMI. [facility] CHEM PANEL CO2 22 24 - 32 09/09/[address] [facility] CHEM PANEL Creatinine Lvl 2.30 0.50 - 1.40 09/09/[address] [facility] CHEM PANEL Potassium Lvl 5.1 3.5 - 5.1 09/09/[address] [facility] CHEM PANEL Chloride Lvl 106 95 - 109 09/09/[address] [facility] CHEM PANEL AGAP 14.1 10.0 - 20.0 09/09/[address] [facility] CHEM PANEL Calcium Lvl 8.2 8.5 - 10.5 09/09/[address] [facility] CHEM PANEL BUN 29 7 - 22 09/09/[address] [facility] CHEM PANEL Sodium Lvl 137 135 - 145 09/09/[address] [facility] CHEM PANEL Glucose Lvl 354 70 - 99 09/09/[address] [facility] HEMATOLOGY MPV 9.6 7.4 - 10.4 09/09/[address] [facility] HEMATOLOGY Platelet 187 133 - 450 09/09/2016 [facility] MCHC 30.5 32.0 - 36.0 09/09/[address] [facility] HEMATOLOGY RDW 18.5 11.5 - 14.5 09/09/2016 [facility] Hgb 7.4 12.0 - 16.0 09/09/2016 [facility] RBC 3.59 4.20 - 5.40 09/09/2016 [facility] MCH 20.7 27.0 - 31.0 09/09/2016 [facility] Hct 24.4 36.0 - 48.0 09/09/2016 [facility] MCV 67.9 80.0 - 98.0 09/09/2016 [facility] WBC 6.8 3.7 - 10.4 09/09/[address] [facility] ELECTROLYTES AGAP 11.5 10.0 - 20.0 09/09/[address] [facility] ELECTROLYTES Glucose Lvl 175 70 - 99 09/09/[address] [facility] ELECTROLYTES Sodium Lvl 140 135 - 145 09/09/[address] [facility] ELECTROLYTES Creatinine Lvl 1.9 0 0.50 - 1.40 09/09/[address] [facility] ELECTROLYTES BUN 25 7 - 22 09/09/[address] [facility] ELECTROLYTES Chloride Lvl 108 95 - 109 09/09/[address] [facility] ELECTROLYTES Potassium Lvl 4.5 3.5 - 5.1 09/09/[address] [facility] ELECTROLYTES eGFR 31 09/09/2016 Result Comment: [...] should be multiplied by the estimated BMI. [facility] ELECTROLYTES CO2 25 24 - 32 09/09/[address] [facility] ELECTROLYTES Calcium Lvl 8.7 8.5 - 10.5 09/09/[address] [facility] ELECTROLYTES Sodium Lvl 140 135 - 145 09/09/[address] [facility] ELECTROLYTES Creatinine Lvl 1.9 0 0.50 - 1.40 09/09/[address] [facility] ELECTROLYTES eGFR 31 09/09/2016 Result Comment: [...] should be multiplied by the estimated BMI. [facility] ELECTROLYTES AGAP 13.5 10.0 - 20.0 09/09/[address] [facility] ELECTROLYTES CO2 25 24 - 32 09/09/[address] [facility] ELECTROLYTES Chloride Lvl 106 95 - 109 09/09/[address] [facility] ELECTROLYTES Calcium Lvl 8.5 8.5 - 10.5 09/09/[address] [facility] ELECTROLYTES Potassium Lvl 4.5 3.5 - 5.1 09/09/[address] [facility] ELECTROLYTES Glucose Lvl 173 70 - 99 09/09/[address] [facility] ELECTROLYTES BUN 25 7 - 22 09/09/[address] [facility] HEMATOLOGY Microcyte 3+ *NA* (09/09/16 3:11 AM) None Seen 09/09/[address] [facility] HEMATOLOGY Monocytes # 0.5 0.0 - 0.8 09/09/[address] [facility] HEMATOLOGY Lymphocytes # 1.0 1.0 - 5.5 09/09/[address] [facility] HEMATOLOGY Segs-Bands # 5.6 1.5 - 8.1 09/09/[address] [facility] HEMATOLOGY Basophils 0.4 0.0 - 1.0 09/09/[address] [facility] HEMATOLOGY Eosinophils 0.2 0.0 - 4.0 09/09/[address] [facility] HEMATOLOGY Lymphocytes 14.5 20.0 - 40.0 09/09/[address] [facility] HEMATOLOGY Monocytes 7.1 2.0 - 12.0 09/09/[address] [facility] HEMATOLOGY Segs 77.8 45.0 - 75.0 09/09/2016 [facility] Platelet 187 133 - 450 09/09/2016 [facility] MPV 9.4 7.4 - 10.4 09/09/[address] [facility] HEMATOLOGY MCV 67.5 80.0 - 98.0 09/09/2016 [facility] RDW 18.2 11.5 - 14.5 09/09/2016 [facility] MCH 20.7 27.0 - 31.0 09/09/2016 [facility] MCHC 30.6 32.0 - 36.0 09/09/[address] [facility] HEMATOLOGY RBC 3.95 4.20 - 5.40 09/09/2016 [facility] Hct 26.6 36.0 - 48.0 09/09/2016 [facility] Hgb 8.2 12.0 - 16.0 09/09/2016 [facility] WBC 7.2 3.7 - 10.4 09/09/[address] [facility] CHEM PANEL Globulin 4.2 2.7 - 4.2 09/08/[address] [facility] CHEM PANEL A/G Ratio 1.0 0.7 - 1.6 09/08/[address] [facility] CHEM PANEL B/C Ratio 16 6 - 25 09/08/[address] [facility] CHEM PANEL Alk Phos 123 39 - 136 09/08/[address] [facility] CHEM PANEL AST 9 0 - 37 09/08/[address] [facility] CHEM PANEL Bili Total 0.5 0.2 - 1.3 09/08/[address] [facility] CHEM PANEL Albumin Lvl 4.3 3.5 - 5.0 09/08/[address] [facility] CHEM PANEL Total Protein 8.5 6.4 - 8.4 09/08/[address] [facility] CHEM PANEL ALT 13 0 - 65 09/08/[address] [facility] CHEM PANEL Lipase Lvl 96 73 - 393 09/08/[address] [facility] ENDOCRINOLOGY S Preg Ne gative *NA* (09/08/16 1:07 AM) Negative 09/08/[address] [facility] HEMATOLOGY Microcyte 3+ *NA* (09/08/16 1:07 AM) None Seen 09/08/[address] [facility] HEMATOLOGY Monocytes # 0.1 0.0 - 0.8 09/08/[address] [facility] HEMATOLOGY Lymphocytes # 0.5 1.0 - 5.5 09/08/[address] [facility] HEMATOLOGY Monocytes 1.5 2.0 - 12.0 09/08/[address] [facility] HEMATOLOGY Lymphocytes 6.2 20.0 - 40.0 09/08/[address] [facility] HEMATOLOGY Segs-Bands # 7.4 1.5 - 8.1 09/08/[address] [facility] HEMATOLOGY Basophils 0.2 0.0 - 1.0 09/08/[address] [facility] HEMATOLOGY Segs 92.1 45.0 - 75.0 09/08/[address] [facility] URINE AND STOOL UA Leuk Est Negative (09/08/16 1:07 AM) Negative 09/08/[address] [facility] URINE AND STOOL UA Nitrite Negative (09/08/16 1:07 AM) Negative 09/08/[address] [facility] URINE AND STOOL UA Blood Small *ABN* (09/08/16 1:07 AM) Negative 09/08/[address] [facility] URINE AND STOOL UA Bili Negative *NA* (09/08/16 1:07 AM) Negative 09/08/[address] [facility] URINE AND STOOL UA Sq Epi Occasional /LPF Few /LPF 09/08/[address] [facility] URINE AND STOOL UA Glucose 500 mg/dL Negative mg/dL 09/08/[address] [facility] URINE AND STOOL UA Protein 30 mg/dL Negative mg/dL 09/08/[address] [facility] URINE AND STOOL UA pH 5.0 5.0 - 8.0 09/08/[address] [facility] URINE AND STOOL UA Ketones 20 mg/dL Negative mg/dL 09/08/[address] [facility] URINE AND STOOL UA Spec Grav 1.012 <=1.030 09/08/[address] [facility] URINE AND STOOL UA Turbidity Clear (09/08/16 1:07 AM) Clear 09/08/[address] [facility] URINE AND STOOL UA Urobilinogen <=1.0 mg/dL 0.1 - 1.0 09/08/2016 [facility] URINE AND STOOL UA Hyal Cast 1 0 - 2 09/08/[address] [facility] URINE AND STOOL UA RBC 3 0 - 2 09/08/[address] [facility] URINE AND STOOL UA WBC 2 0 - 5 09/08/[address] [facility] URINE AND STOOL UA Color Ltyellow 09/08/[address] [facility] CHEM PANEL eGFR 70 08/20/2016 Result [...] should be multiplied by the estimated BMI. [facility] CHEM PANEL ALT 179 0 - 65 08/20/[address] [facility] CHEM PANEL Albumin Lvl 3.4 3.5 - 5.0 08/20/[address] [facility] CHEM PANEL Total Protein 6.6 6.4 - 8.4 08/20/[address] [facility] CHEM PANEL Calcium Lvl 8.5 8.5 - 10.5 08/20/[address] [facility] CHEM PANEL CO2 22 24 - 32 08/20/[address] [facility] CHEM PANEL Chloride Lvl 108 95 - 109 08/20/[address] [facility] CHEM PANEL Alk Phos 184 39 - 136 08/20/[address] [facility] CHEM PANEL AST 81 0 - 37 08/20/[address] [facility] CHEM PANEL Bili Total 0.6 0.2 - 1.3 08/20/[address] [facility] CHEM PANEL Sodium Lvl 141 135 - 145 08/20/[address] [facility] CHEM PANEL BUN 10 7 - 22 08/20/[address] [facility] CHEM PANEL Glucose Lvl 153 70 - 99 08/20/[address] [facility] CHEM PANEL Potassium Lvl 4.2 3.5 - 5.1 08/20/[address] [facility] CHEM PANEL Creatinine Lvl 0.97 0.50 - 1.40 08/20/[address] [facility] CHEM PANEL A/G Ratio 1.1 0.7 - 1.6 08/20/[address] [facility] CHEM PANEL Globulin 3.2 2.7 - 4.2 08/20/[address] [facility] CHEM PANEL B/C Ratio 10 6 - 25 08/20/[address] [facility] CHEM PANEL AGAP 15.2 10.0 - 20.0 08/20/[address] [facility] HEMATOLOGY MCHC 30.3 32.0 - 36.0 08/20/[address] [facility] HEMATOLOGY MCH 20.3 27.0 - 31.0 08/20/[address] [facility] HEMATOLOGY MCV 67.2 80.0 - 98.0 08/20/[address] [facility] HEMATOLOGY Hct 27.7 36.0 - 48.0 08/20/[address] [facility] HEMATOLOGY Hgb 8.4 12.0 - 16.0 08/20/[address] [facility] HEMATOLOGY RBC 4.13 4.20 - 5.40 08/20/[address] [facility] HEMATOLOGY MPV 9.5 7.4 - 10.4 08/20/[address] [facility] HEMATOLOGY Platelet 208 133 - 450 08/20/[address] [facility] HEMATOLOGY RDW 17.7 11.5 - 14.5 08/20/[address] [facility] HEMATOLOGY WBC 6.5 3.7 - 10.4 08/20/[address] [facility] HEMATOLOGY INR 1.05 0.85 - 1.17 08/20/[address] [facility] HEMATOLOGY PTT 28.8 22.9 - 35.8 08/20/[address] [facility] HEMATOLOGY PT 13.9 12.0 - 14.7 08/20/[address] [facility] HEMATOLOGY Hct 27.7 36.0 - 48.0 08/20/[address] [facility] HEMATOLOGY Hgb 8.4 12.0 - 16.0 08/20/[address] [facility] HEMATOLOGY WBC 6.5 3.7 - 10.4 08/20/[address] [facility] HEMATOLOGY RBC 4.13 4.20 - 5.40 08/20/[address] [facility] HEMATOLOGY Platelet 208 133 - 450 08/20/[address] [facility] HEMATOLOGY MPV 9.5 7.4 - 10.4 08/20/[address] [facility] HEMATOLOGY MCHC 30.3 32.0 - 36.0 08/20/[address] [facility] HEMATOLOGY MCV 67.2 80.0 - 98.0 08/20/[address] [facility] HEMATOLOGY RDW 17.7 11.5 - 14.5 08/20/[address] [facility] HEMATOLOGY MCH 20.3 27.0 - 31.0 08/20/[address] [facility] HEMATOLOGY Segs-Bands # 4.4 1.5 - 8.1 08/20/[address] [facility] HEMATOLOGY Basophils 0.6 0.0 - 1.0 08/20/[address] [facility] HEMATOLOGY Eosinophils 0.7 0.0 - 4.0 08/20/[address] [facility] HEMATOLOGY Monocytes 8.1 2.0 - 12.0 08/20/[address] [facility] HEMATOLOGY Lymphocytes 23.2 20.0 - 40.0 08/20/[address] [facility] HEMATOLOGY Microcyte 3+ *NA* (08/20/16 4:47 AM) None Seen 08/20/[address] [facility] HEMATOLOGY Monocytes # 0.5 0.0 - 0.8 08/20/[address] [facility] HEMATOLOGY Lymphocytes # 1.5 1.0 - 5.5 08/20/[address] [facility] HEMATOLOGY Segs 67.4 45.0 - 75.0 08/20/[address] [facility] ANEMIA STUDY Vitamin B12 Lvl 259 254 - 1320 08/19/[address] [facility] ANEMIA STUDY Ferritin Lvl 6 5 - 204 08/19/[address] [facility] ANEMIA STUDY Folate Lvl 11.3 >=3.0 ng/mL 08/19/[address] [facility] ANEMIA STUDY UIBC 446 110 - 370 08/19/[address] [facility] ANEMIA STUDY % Satur Fe 4 12 - 57 08/19/[address] [facility] ANEMIA STUDY TIBC 463 228 - 428 08/19/[address] [facility] ANEMIA STUDY Iron 17 30 - 160 08/19/[address] [facility] CHEM PANEL VITAMIN B1 (THIAMINE) WHO LE BLOOD 79.6 66.5 - 200.0 08/19/2016 Result Comment: Performed At : [facility]
[address] [place], [place] [id number]
Carlin Feliz MD Ph:[phone] [facility] ANEMIA STUDY UIBC 378 110 - 370 08/19/[address] [facility] ANEMIA STUDY TIBC 398 228 - 428 08/19/[address] [facility] ANEMIA STUDY % Satur Fe 5 12 - 57 08/19/[address] [facility] ANEMIA STUDY Iron 20 30 - 160 08/19/[address] [facility] CHEM PANEL eGFR 68 08/19/2016 Result [...] should be multiplied by the estimated BMI. [facility] CHEM PANEL Bili Total 0.9 0.2 - 1.3 08/19/[address] [facility] CHEM PANEL AST 325 0 - 37 08/19/[address] [facility] CHEM PANEL Alk Phos 188 39 - 136 08/19/[address] [facility] CHEM PANEL AGAP 12.0 10.0 - 20.0 08/19/[address] [facility] CHEM PANEL Calcium Lvl 8.6 8.5 - 10.5 08/19/[address] [facility] CHEM PANEL B/C Ratio 13 6 - 25 08/19/[address] [facility] CHEM PANEL Potassium Lvl 4.0 3.5 - 5.1 08/19/[address] [facility] CHEM PANEL Glucose Lvl 137 70 - 99 08/19/[address] [facility] CHEM PANEL BUN 13 7 - 22 08/19/[address] [facility] CHEM PANEL CO2 23 24 - 32 08/19/[address] [facility] CHEM PANEL Chloride Lvl 108 95 - 109 08/19/[address] [facility] CHEM PANEL Creatinine Lvl 0.99 0.50 - 1.40 08/19/[address] [facility] CHEM PANEL Sodium Lvl 139 135 - 145 08/19/[address] [facility] CHEM PANEL Globulin 3.2 2.7 - 4.2 08/19/[address] [facility] CHEM PANEL Total Protein 6.6 6.4 - 8.4 08/19/[address] [facility] CHEM PANEL Albumin Lvl 3.4 3.5 - 5.0 08/19/[address] [facility] CHEM PANEL ALT 280 0 - 65 08/19/[address] [facility] CHEM PANEL A/G Ratio 1.1 0.7 - 1.6 08/19/[address] [facility] HEMATOLOGY Microcyte 3+ *NA* (08/19/16 5:41 [...] HEMATOLOGY Segs 63.5 45.0 - 75.0 08/19/[address] [facility] HEMATOLOGY Hgb 7.9 12.0 - 16.0 08/19/2016 [facility] MCH 20.8 27.0 - 31.0 08/19/[address] [facility] HEMATOLOGY MCV 67.5 80.0 - 98.0 08/19/[address] [facility] HEMATOLOGY MCHC 30.8 32.0 - 36.0 08/19/[address] [facility] HEMATOLOGY Hct 25.8 36.0 - 48.0 08/19/[address] [facility] HEMATOLOGY MPV 9.0 7.4 - 10.4 08/19/[address] [facility] HEMATOLOGY Platelet 216 133 - 450 08/19/[address] [facility] HEMATOLOGY RDW 18.2 11.5 - 14.5 08/19/[address] [facility] HEMATOLOGY RBC 3.82 4.20 - 5.40 08/19/[address] [facility] HEMATOLOGY WBC 5.6 3.7 - 10.4 08/19/[address] [facility] HEMATOLOGY PTT 28.3 22.9 - 35.8 08/19/[address] [facility] HEMATOLOGY PT 14.8 12.0 - 14.7 08/19/[address] [facility] HEMATOLOGY INR 1.14 0.85 - 1.17 08/19/[address] [facility] IMMUNOLOGY Hep A IgM Negat adan *NA* (08/19/16 5:41 AM) Negative 08/19/[address] [facility] IMMUNOLOGY Hep B Core IgM Negat adan *NA* (08/19/16 5:41 AM) Negative 08/19/[address] [facility] IMMUNOLOGY Hep C Ab Negat adan *NA* (08/19/16 5:41 AM) 08/19/[address] [facility] IMMUNOLOGY Hep Bs Ag Negat adan *NA* (08/19/16 5:41 AM) Negative 08/19/[address] [facility] URINE AND STOOL UA WBC 1 0 - 5 08/18/[address] [facility] URINE AND STOOL UA Urobilinogen 4.0 0.1 - 1.0 08/18/2016 [facility] URINE AND STOOL UA Leuk Est Negative (08/18/16 8:45 AM) Negative 08/18/[address] [facility] URINE AND STOOL UA RBC <1 0 - 2 08/18/[address] [facility] URINE AND STOOL UA Sq Epi Occasional /LPF Few /LPF 08/18/[address] [facility] URINE AND STOOL UA Blood Negative (08/18/16 8:45 AM) Negative 08/18/[address] [facility] URINE AND STOOL UA Nitrite Negative (08/18/16 8:45 AM) Negative 08/18/[address] [facility] URINE AND STOOL UA Bili Negative *NA* (08/18/16 8:45 AM) Negative 08/18/[address] [facility] URINE AND STOOL UA Ketones Negative mg/dL Negative mg/dL 08/18/[address] [facility] [address] URINE AND STOOL UA Turbidity Clear (08/18/16 8:45 AM) Clear 08/18/[address] [facility] URINE AND STOOL UA Spec Grav 1.014 <=1.030 08/18/[address] [facility] URINE AND STOOL UA Protein Negative mg/dL Negative mg/dL 08/18/2016 [facility] URINE AND STOOL UA pH 5.0 5.0 - 8.0 08/18/[address] [facility] URINE AND STOOL UA Glucose Negative mg/dL Negative mg/dL 08/18/2016 [facility] URINE AND STOOL UA Color Yellow *NA* (08/18/16 8:45 AM) Yellow 08/18/[address] [facility] CHEM PANEL Magnesium Lvl 1.3 1.8 - 2.4 08/18/[address] [facility] CHEM PANEL ALT 161 0 - 65 08/18/[address] [facility] CHEM PANEL Total Protein 6.7 6.4 - 8.4 08/18/[address] [facility] CHEM PANEL A/G Ratio 1.0 0.7 - 1.6 08/18/[address] [facility] CHEM PANEL B/C Ratio 14 6 - 25 08/18/[address] [facility] CHEM PANEL Globulin 3.3 2.7 - 4.2 08/18/[address] [facility] CHEM PANEL Albumin Lvl 3.4 3.5 - 5.0 08/18/[address] [facility] CHEM PANEL eGFR 49 08/18/2016 Result [...] should be multiplied by the estimated BMI. [facility] CHEM PANEL Alk Phos 159 39 - 136 08/18/[address] [facility] CHEM PANEL AST 490 0 - 37 08/18/[address] [facility] CHEM PANEL Bili Total 0.8 0.2 - 1.3 08/18/[address] [facility] CHEM PANEL Calcium Lvl 8.3 8.5 - 10.5 08/18/[address] [facility] CHEM PANEL Glucose Lvl 197 70 - 99 08/18/[address] [facility] CHEM PANEL Creatinine Lvl 1.30 0.50 - 1.40 08/18/[address] [facility] CHEM PANEL BUN 18 7 - 22 08/18/[address] [facility] CHEM PANEL Sodium Lvl 140 135 - 145 08/18/[address] [facility] CHEM PANEL Potassium Lvl 4.1 3.5 - 5.1 08/18/[address] [facility] CHEM PANEL Chloride Lvl 110 95 - 109 08/18/[address] [facility] CHEM PANEL CO2 20 24 - 32 08/18/[address] [facility] CHEM PANEL AGAP 14.1 10.0 - 20.0 08/18/[address] [facility] HEMATOLOGY Eosinophils 0.1 0.0 - 4.0 08/18/[address] [facility] HEMATOLOGY Segs-Bands # 6.1 1.5 - 8.1 08/18/[address] [facility] HEMATOLOGY Lymphocytes # 1.2 1.0 - 5.5 08/18/[address] [facility] HEMATOLOGY Monocytes # 0.6 0.0 - 0.8 08/18/[address] [facility] HEMATOLOGY Basophils 0.4 0.0 - 1.0 08/18/[address] [facility] HEMATOLOGY Segs 77.4 45.0 - 75.0 08/18/2016 [facility] Lymphocytes 14.8 20.0 - 40.0 08/18/2016 [facility] Monocytes 7.3 2.0 - 12.0 08/18/[address] [facility] HEMATOLOGY Microcyte 3+ *NA* (08/18/16 4:34 AM) None Seen 08/18/[address] [facility] CHEM PANEL Lipase Lvl 123 73 - 393 08/18/2016 [facility] RBC Morph See N ote 1 (08/17/16 7:21 PM) 08/18/2016 Result Comment: microcytosis [facility] Plt Morph Keisha l (08/17/16 7:21 PM) 08/18/2016 [facility] [facility] # 0.1 0.0 - 0.2 08/18/[address] [facility] URINE AND STOOL UA Glucose 50 mg/dL Negative mg/dL 08/18/[address] [facility] URINE AND STOOL UA Ketones Trace mg/dL Negative mg/dL 08/18/2016 [facility] URINE AND STOOL UA Hyal Cast 30 [...] UA pH 5.0 5.0 - 8.0 08/18/[address] [facility] URINE AND STOOL UA Spec Grav 1.026 <=1.030 08/18/[address] [facility] URINE AND STOOL UA Bili Negative *NA* (08/17/16 7:21 PM) Negative 08/18/2016 [facility] URINE AND STOOL UA Leuk Est Negative (08/17/16 7:21 PM) Negative 08/18/[address] [facility] URINE AND STOOL UA Nitrite Negative (08/17/16 7:21 PM) Negative 08/18/[address] [facility] URINE AND STOOL UA Protein 100 mg/dL Negative mg/dL 08/18/[address] [facility] URINE AND STOOL UA Turbidity Slight *ABN* (08/17/16 7:21 PM) Clear 08/18/[address] [facility] URINE AND STOOL UA Color Yellow *NA* (08/17/16 7:21 PM) Yellow 08/18/[address] [facility] URINE CHEM U Preg Negat adan (08/17/16 7:21 PM) Negative 08/18/[address] [facility] HEMATOLOGY Monocytes # 0.5 0.0 - 0.8 06/19/[address] [facility] HEMATOLOGY Basophils # 0.1 0.0 - 0.2 06/19/2016 [facility] Microcyte 3+ *NA* (06/19/16 7:45 AM) None Seen 06/19/2016 [facility] Basophils 0.9 0.0 - 1.0 06/19/[address] [facility] HEMATOLOGY Segs-Bands # 5.0 1.5 - 8.1 06/19/2016 [facility] Lymphocytes # 1.7 1.0 - 5.5 06/19/2016 [facility] Monocytes 7.0 2.0 - 12.0 06/19/[address] [facility] HEMATOLOGY Eosinophils 0.6 0.0 - 4.0 06/19/2016 [facility] Lymphocytes 22.8 20.0 - 40.0 06/19/2016 [facility] Segs 68.7 45.0 - 75.0 06/19/2016 [facility] WBC 7.3 3.7 - 10.4 06/19/2016 [facility] RBC 4.19 4.20 - 5.40 06/19/2016 [facility] Hgb 8.4 12.0 - 16.0 06/19/2016 [facility] MCH 20.1 27.0 - 31.0 06/19/2016 [facility] MCHC 30.7 32.0 - 36.0 06/19/2016 [facility] RDW 20.1 11.5 - 14.5 06/19/2016 [facility] Hct 27.4 36.0 - 48.0 06/19/2016 [facility] MCV 65.3 80.0 - 98.0 06/19/[address] [facility] HEMATOLOGY MPV 9.1 7.4 - 10.4 06/19/[address] [facility] HEMATOLOGY Platelet 202 133 - 450 06/19/[address] [facility] CHEM PANEL Ammonia 15.0 <=45.0 uMol/L 06/19/[address] [facility] TOXICOLOGY Salicylate Lvl <1.7 0.0 - 30.0 06/19/[address] [facility] TOXICOLOGY Ethanol Lvl <3 06/19/[address] [facility] TOXICOLOGY Etoh (%) <0.003 06/19/[address] [facility] TOXICOLOGY Acetaminoph Lvl <2 (06/19/16 12:50 AM) 10 - 20 06/19/[address] [facility] URINE AND STOOL UA Color Ltyellow 06/19/[address] [facility] URINE AND STOOL UA Ketones Negative mg/dL Negative mg/dL 06/19/2016 [facility] URINE AND STOOL UA Urobilinogen 2.0 0.1 - 1.0 06/19/[address] [facility] URINE AND STOOL UA Bili Negative *NA* (06/19/16 12:50 AM) Negative 06/19/[address] [facility] URINE AND STOOL UA Blood Negative (06/19/16 12:50 AM) Negative 06/19/[address] [facility] URINE AND STOOL UA WBC 1 0 - 5 06/19/[address] [facility] URINE AND STOOL UA RBC <1 0 - 2 06/19/[address] [facility] URINE AND STOOL UA Bacteria Occasional /HPF None Seen /HPF 06/19/2016 [facility] URINE AND STOOL UA Nitrite Negative (06/19/16 12:50 AM) Negative 06/19/[address] [facility] URINE AND STOOL UA Leuk Est Negative (06/19/16 12:50 AM) Negative 06/19/[address] [facility] URINE AND STOOL UA Sq Epi Few /LPF Few /LPF 06/19/[address] [facility] URINE AND STOOL UA Glucose Negative mg/dL Negative mg/dL 06/19/[address] [facility] URINE AND STOOL UA pH 5.0 5.0 - 8.0 06/19/[address] [facility] URINE AND STOOL UA Protein Negative mg/dL Negative mg/dL 06/19/2016 [facility] URINE AND STOOL UA Turbidity Clear (06/19/16 12:50 AM) Clear 06/19/[address] [facility] URINE AND STOOL UA Spec Grav 1.013 <=1.030 06/19/[address] [facility] CARDIAC ENZYMES CK MB 1.4 0.5 - 3.6 06/19/[address] [facility] CARDIAC ENZYMES Troponin-I <0.02 0.00 - 0.40 06/19/[address] [facility] CARDIAC ENZYMES Total CK 85 12 - 191 06/19/[address] [facility] CARDIAC ENZYMES BNP 9 <=100 pg/mL 06/19/[address] [facility] CARDIAC ENZYMES CK MB Index 1.6 0.0 - 2.5 06/19/[address] [facility] CHEM PANEL eGFR 54 06/19/2016 Result [...] should be multiplied by the estimated BMI. [facility] CHEM PANEL Alk Phos 137 39 - 136 06/19/[address] [facility] CHEM PANEL B/C Ratio 18 6 - 25 06/19/[address] [facility] CHEM PANEL Bili Total 0.3 0.2 - 1.3 06/19/[address] [facility] CHEM PANEL AST 14 0 - 37 06/19/[address] [facility] CHEM PANEL Total Protein 7.7 6.4 - 8.4 06/19/[address] [facility] CHEM PANEL AGAP 14.2 10.0 - 20.0 06/19/[address] [facility] CHEM PANEL Albumin Lvl 4.0 3.5 - 5.0 06/19/[address] [facility] CHEM PANEL Globulin 3.7 2.7 - 4.2 06/19/[address] [facility] CHEM PANEL A/G Ratio 1.1 0.7 - 1.6 06/19/[address] [facility] CHEM PANEL Chloride Lvl 105 95 - 109 06/19/[address] [facility] CHEM PANEL ALT 20 0 - 65 06/19/[address] [facility] CHEM PANEL Calcium Lvl 8.6 8.5 - 10.5 06/19/[address] [facility] CHEM PANEL CO2 25 24 - 32 06/19/[address] [facility] CHEM PANEL BUN 21 7 - 22 06/19/[address] [facility] CHEM PANEL Sodium Lvl 140 135 - 145 06/19/[address] [facility] CHEM PANEL Creatinine Lvl 1.20 0.50 - 1.40 06/19/[address] [facility] CHEM PANEL Potassium Lvl 4.2 3.5 - 5.1 06/19/[address] [facility] CHEM PANEL Glucose Lvl 147 70 - 99 06/19/[address] [facility] HEMATOLOGY Platelet 193 133 - 450 06/19/[address] [facility] HEMATOLOGY MPV 9.4 7.4 - 10.4 06/19/[address] [facility] HEMATOLOGY MCHC 30.4 32.0 - 36.0 06/19/[address] [facility] HEMATOLOGY RDW 20.2 11.5 - 14.5 06/19/2016 [facility] Hct 29.8 36.0 - 48.0 06/19/[address] [facility] HEMATOLOGY MCV 66.1 80.0 - 98.0 06/19/2016 [facility] MCH 20.1 27.0 - 31.0 06/19/[address] [facility] HEMATOLOGY WBC 8.4 3.7 - 10.4 06/19/[address] [facility] HEMATOLOGY RBC 4.51 4.20 - 5.40 06/19/[address] [facility] HEMATOLOGY Hgb 9.1 12.0 - 16.0 06/19/2016 [facility] Microcyte 3+ *NA* (06/19/16 12:18 AM) None Seen 06/19/[address] [facility] HEMATOLOGY Lymphocytes # 1.6 1.0 - 5.5 06/19/[address] [facility] HEMATOLOGY Segs-Bands # 6.1 1.5 - 8.1 06/19/[address] [facility] HEMATOLOGY Eosinophils # 0.1 0.0 - 0.5 06/19/[address] [facility] HEMATOLOGY Monocytes # 0.6 0.0 - 0.8 06/19/[address] [facility] HEMATOLOGY Monocytes 7.6 2.0 - 12.0 06/19/[address] [facility] HEMATOLOGY Basophils 0.3 0.0 - 1.0 06/19/[address] [facility] HEMATOLOGY Eosinophils 0.8 0.0 - 4.0 06/19/[address] [facility] HEMATOLOGY Lymphocytes 18.5 20.0 - 40.0 06/19/[address] [facility] HEMATOLOGY Segs 72.8 45.0 - 75.0 06/19/[address] [facility] CHEM PANEL eGFR 54 06/07/2016 Result [...] should be multiplied by the estimated BMI. [facility] CHEM PANEL Glucose Lvl 313 70 - 99 06/07/[address] [facility] CHEM PANEL BUN 21 7 - 22 06/07/[address] [facility] CHEM PANEL Creatinine Lvl 1.20 0.50 - 1.40 06/07/[address] [facility] CHEM PANEL Calcium Lvl 8.3 8.5 - 10.5 06/07/[address] [facility] CHEM PANEL CO2 22 24 - 32 06/07/[address] [facility] CHEM PANEL Chloride Lvl 105 95 - 109 06/07/[address] [facility] CHEM PANEL Sodium Lvl 137 135 - 145 06/07/[address] [facility] CHEM PANEL Potassium Lvl 4.1 3.5 - 5.1 06/07/[address] [facility] CHEM PANEL AGAP 14.1 10.0 - 20.0 06/07/[address] [facility] HEMATOLOGY MCHC 30.6 32.0 - 36.0 06/07/2016 [facility] MCH 20.1 27.0 - 31.0 06/07/[address] [facility] HEMATOLOGY MCV 65.7 80.0 - 98.0 06/07/2016 [facility] RDW 19.8 11.5 - 14.5 06/07/2016 [facility] Hct 25.1 36.0 - 48.0 06/07/2016 [facility] MPV 9.4 7.4 - 10.4 06/07/2016 [facility] HEMATOLOGY Platelet 190 133 - 450 06/07/[address] [facility] HEMATOLOGY WBC 6.3 3.7 - 10.4 06/07/[address] [facility] HEMATOLOGY Hgb 7.7 12.0 - 16.0 06/07/[address] [facility] HEMATOLOGY RBC 3.82 4.20 - 5.40 06/07/2016 [facility] Microcyte 3+ *NA* (06/07/16 12:52 PM) None Seen 06/07/[address] [facility] HEMATOLOGY Plt Morph Keisha l (06/07/16 12:52 PM) 06/07/[address] [facility] HEMATOLOGY Segs 68.2 45.0 - 75.0 06/07/[address] [facility] HEMATOLOGY Lymphocytes 24.6 20.0 - 40.0 06/07/2016 [facility] Monocytes 6.1 2.0 - 12.0 06/07/2016 [facility] Eosinophils 0.5 0.0 - 4.0 06/07/2016 [facility] Segs-Bands # 4.0 1.5 - 8.1 06/07/2016 [facility] Monocytes # 0.4 0.0 - 0.8 06/07/2016 [facility] Lymphocytes # 1.4 1.0 - 5.5 06/07/2016 [facility] Hypochrom 1+ (06/07/16 12:52 PM) None Seen 06/07/[address] [facility] URINE AND STOOL UA Urobilinogen 2.0 0.1 - 1.0 06/07/[address] [facility] URINE AND STOOL UA Nitrite Negative (06/07/16 12:52 PM) Negative 06/07/[address] [facility] URINE AND STOOL UA Leuk Est Negative (06/07/16 12:52 PM) Negative 06/07/[address] [facility] URINE AND STOOL UA WBC 2 0 - 5 06/07/[address] [facility] URINE AND STOOL UA Spec Grav 1.018 <=1.030 06/07/[address] [facility] URINE AND STOOL UA pH 6.0 5.0 - 8.0 06/07/[address] [facility] URINE AND STOOL UA Protein 30 mg/dL Negative mg/dL 06/07/[address] [facility] URINE AND STOOL UA Glucose 500 mg/dL Negative mg/dL 06/07/[address] [facility] URINE AND STOOL UA Ketones Negative mg/dL Negative mg/dL 06/07/2016 [facility] URINE AND STOOL UA Bili Negative *NA* (06/07/16 12:52 PM) Negative 06/07/[address] [facility] URINE AND STOOL UA Blood Negative (06/07/16 12:52 PM) Negative 06/07/[address] [facility] URINE AND STOOL UA Sq Epi Occasional /LPF Few /LPF 06/07/[address] [facility] URINE AND STOOL UA RBC 1 0 - 2 06/07/[address] [facility] URINE AND STOOL UA Color Yellow *NA* (06/07/16 12:52 PM) Yellow 06/07/[address] [facility] URINE AND STOOL UA Turbidity Clear (06/07/16 12:52 PM) Clear 06/07/[address] [facility] URINE CHEM U Preg Negat adan (06/07/16 12:52 PM) Negative 06/07/[address] [facility] BLOOD BANK RESULTS ABO/Rh A POS 01/19/[address] [facility] BLOOD BANK RESULTS Antibody Scrn Negative (01/19/16 2:55 AM) 01/19/[address] [facility] CARDIAC ENZYMES CK MB <0.5 0.5 - 3.6 01/19/[address] [facility] CARDIAC ENZYMES Troponin-I <0.02 0.00 - 0.40 01/19/[address] [facility] CARDIAC ENZYMES Total CK 44 12 - 191 01/19/[address] [facility] CARDIAC ENZYMES CK MB Index <1.1 0.0 - 2.5 01/19/[address] [facility] CHEM PANEL Lactic Acid Lvl 1.4 0.5 - 2.2 01/19/[address] [facility] CHEM PANEL Amylase Lvl 106 25 - 115 01/19/[address] [facility] CHEM PANEL Lipase Lvl 82 73 - 393 01/19/[address] [facility] CHEM PANEL eGFR 45 01/19/2016 Result [...] should be multiplied by the estimated BMI. [facility] CHEM PANEL AGAP 12.1 10.0 - [...] Sodium Lvl 131 135 - 145 01/19/[address] [facility] CHEM PANEL Creatinine Lvl 1.40 0.50 - 1.40 01/19/[address] [facility] CHEM PANEL BUN 20 7 - 22 01/19/[address] [facility] CHEM PANEL Glucose Lvl 291 70 - 99 01/19/[address] [facility] CHEM PANEL A/G Ratio 1.0 0.7 - 1.6 01/19/2016 [facility] CHEM PANEL Globulin 4.4 2.7 - 4.2 01/19/2016 [facility] CHEM PANEL B/C Ratio 14 6 - 25 01/19/[address] [facility] CHEM PANEL Albumin Lvl 4.4 3.5 - 5.0 01/19/[address] [facility] CHEM PANEL Calcium Lvl 9.2 8.5 - 10.5 01/19/[address] [facility] CHEM PANEL Chloride Lvl 97 95 - 109 01/19/[address] [facility] CHEM PANEL Total Protein 8.8 6.4 - 8.4 01/19/[address] [facility] CHEM PANEL CO2 26 24 - 32 01/19/[address] [facility] ENDOCRINOLOGY S Preg Ne gative *NA* (01/19/16 2:55 AM) Negative 01/19/[address] [facility] HEMATOLOGY MCH 18.9 27.0 - 31.0 01/19/[address] [facility] HEMATOLOGY Platelet 238 133 - 450 01/19/[address] [facility] HEMATOLOGY MPV 9.4 7.4 - 10.4 01/19/[address] [facility] HEMATOLOGY MCHC 30.3 32.0 - 36.0 01/19/[address] [facility] HEMATOLOGY RDW 18.8 11.5 - 14.5 01/19/[address] [facility] HEMATOLOGY RBC 5.46 4.20 - 5.40 01/19/[address] [facility] HEMATOLOGY Hgb 10.3 12.0 - 16.0 01/19/[address] [facility] HEMATOLOGY Hct 34.1 36.0 - 48.0 01/19/[address] [facility] HEMATOLOGY MCV 62.5 80.0 - 98.0 01/19/[address] [facility] HEMATOLOGY WBC 7.3 3.7 - 10.4 01/19/[address] [facility] HEMATOLOGY PT 13.5 12.0 - 14.7 01/19/2016 [facility] INR 1.01 0.85 - 1.17 01/19/2016 [facility] Hypochrom 1+ (01/19/16 2:55 AM) None Seen 01/19/2016 [facility] Microcyte 3+ *NA* (01/19/16 2:55 AM) None Seen 01/19/2016 [facility] Monocytes # 0.6 0.0 - 0.8 01/19/[address] [facility] HEMATOLOGY Segs 67.7 45.0 - 75.0 01/19/2016 [facility] Plt Morph Keisha l (01/19/16 2:55 AM) 01/19/2016 [facility] Segs-Bands # 5.0 1.5 - 8.1 01/19/[address] [facility] HEMATOLOGY Basophils 0.5 0.0 - 1.0 01/19/2016 [facility] Eosinophils 0.4 0.0 - 4.0 01/19/2016 [facility] Monocytes 7.5 2.0 - 12.0 01/19/2016 [facility] Lymphocytes 23.9 20.0 - 40.0 01/19/2016 [facility] Lymphocytes # 1.8 1.0 - 5.5 01/19/[address] [facility] URINE AND STOOL UA Urobilinogen <=1.0 mg/dL 0.1 - 1.0 01/19/2016 [facility] URINE AND STOOL UA Ketones 20 mg/dL Negative mg/dL 01/19/[address] [facility] URINE AND STOOL UA Bili Negative *NA* (01/19/16 2:55 AM) Negative 01/19/[address] [facility] URINE AND STOOL UA Glucose 500 mg/dL Negative mg/dL 01/19/[address] [facility] URINE AND STOOL UA Protein 100 mg/dL Negative mg/dL 01/19/[address] [facility] URINE AND STOOL UA Spec Grav 1.024 <=1.030 01/19/[address] [facility] URINE AND STOOL UA pH 5.0 5.0 - 8.0 01/19/2016 [facility] URINE AND STOOL UA Color Yellow *NA* (01/19/16 2:55 AM) Yellow 01/19/2016 [facility] URINE AND STOOL UA Turbidity Clear (01/19/16 2:55 AM) Clear 01/19/2016 [facility] URINE AND STOOL UA Mucus Few /LPF None Seen /LPF 01/19/2016 [facility] URINE AND STOOL UA Bacteria Occasional /HPF None Seen /HPF 01/19/[address] [facility] URINE AND STOOL UA WBC 3 [...] Urobilinogen <=1.0 mg/dL 0.1 - 1.0 09/08/[address] [facility] [address] URINE AND STOOL UA Ketones Negative mg/dL Negative mg/dL 09/08/[address] [facility] [address] URINE AND STOOL UA Blood Negative [...] UA Glucose 150 mg/dL Negative mg/dL 09/08/[address] [facility] URINE AND STOOL UA Spec Grav 1.020 <=1.030 09/08/[address] [facility] URINE AND STOOL UA Turbidity Clear (09/08/14 5:50 PM) Clear 09/08/[address] [facility] URINE AND STOOL UA Protein Negative mg/dL Negative mg/dL 09/08/[address] [facility] [address] URINE CHEM U Preg Negat adan (09/08/14 5:50 PM) Negative 09/08/[address] [facility] CHEM PANEL Lipase Lvl 87 73 - 393 09/08/[address] [facility] CHEM PANEL eGFR 50 09/08/2014 <sup>1</sup>Result [...] should be multiplied by the estimated BMI. [facility] CHEM PANEL Glucose Lvl 158 70 - 99 09/08/2014 <sup>2</sup>Interpretive Data: Adult ref erence range values reflect the clinical guidelines
of the [place] [employer]. [facility] CHEM PANEL AST 19 0 - 37 09/08/[address] [facility] CHEM PANEL BUN 22 7 - 22 09/08/[address] [facility] CHEM PANEL Total Protein 7.3 6.4 - 8.4 09/08/[address] [facility] CHEM PANEL Creatinine Lvl 1.3 0.5 - 1.4 09/08/[address] [facility] CHEM PANEL CO2 25 24 - 32 09/08/[address] [facility] CHEM PANEL ALT 42 0 - 65 09/08/[address] [facility] CHEM PANEL Albumin Lvl 3.6 3.5 - 5.0 09/08/[address] [facility] CHEM PANEL Alk Phos 213 39 - 136 09/08/[address] [facility] CHEM PANEL Bili Total 0.2 0.2 - 1.3 09/08/[address] [facility] CHEM PANEL Potassium Lvl 4.1 3.5 - 5.1 09/08/[address] [facility] CHEM PANEL Sodium Lvl 139 135 - 145 09/08/[address] [facility] CHEM PANEL Chloride Lvl 106 95 - 109 09/08/[address] [facility] CHEM PANEL Calcium Lvl 8.0 8.5 - 10.5 09/08/[address] [facility] CHEM PANEL Globulin 3.7 2.0 - 4.0 09/08/[address] [facility] CHEM PANEL A/G Ratio 1.0 0.7 - 1.6 09/08/[address] [facility] CHEM PANEL AGAP 12.1 10.0 - 20.0 09/08/[address] [facility] CHEM PANEL B/C Ratio 17 6 - 25 09/08/[address] [facility] CHEM PANEL Magnesium Lvl 2.2 1.8 - 2.4 09/08/[address] [facility] CHEM PANEL Phosphorus 2.7 2.5 - 4.5 09/08/[address] [facility] HEMATOLOGY MCHC 32.5 32.0 - 36.0 09/08/2014 [facility] Hct 28.2 36.0 - 48.0 09/08/2014 [facility] MCV 73.7 80.0 - 98.0 09/08/2014 [facility] MCH 23.9 27.0 - 31.0 09/08/2014 [facility] RDW 17.2 11.5 - 14.5 09/08/2014 [facility] Platelet 144 133 - 450 09/08/[address] [facility] HEMATOLOGY MPV 9.1 7.4 - 10.4 09/08/2014 [facility] RBC 3.83 4.20 - 5.40 09/08/2014 [facility] WBC 5.4 3.7 - 10.4 09/08/2014 [facility] Hgb 9.2 12.0 - 16.0 09/08/2014 [facility] Microcyte 1+ *ABN* (09/08/14 5:03 PM) None Seen 09/08/[address] [facility] HEMATOLOGY Eosinophils # 0.1 0.0 - 0.5 09/08/[address] [facility] HEMATOLOGY Monocytes # 0.4 0.0 - 0.8 09/08/2014 [facility] HEMATOLOGY Lymphocytes # 1.4 1.0 - 5.5 09/08/[address] [facility] HEMATOLOGY Basophils 0.6 0.0 - 1.0 09/08/[address] [facility] HEMATOLOGY Segs-Bands # 3.5 1.5 - 8.1 09/08/[address] [facility] HEMATOLOGY Eosinophils 1.3 0.0 - 4.0 09/08/2014 [facility] Lymphocytes 26.3 20.0 - 40.0 09/08/[address] [facility] HEMATOLOGY Monocytes 8.1 2.0 - 12.0 09/08/[address] [facility] HEMATOLOGY Segs 63.7 45.0 - 75.0 09/08/[address] [facility] Pathology Reports No Data Provided for [...] scribed. Kurt Paz MD On 02/24/2019 09:55:52; [id number] 02/23/[address] [facility] Spine lumbar wo contrast CT Ra [...] described. Jj Bah MD On 02/26/2019 08:19:31; [id number] 02/23/[address] [facility] Abdomen/Pelvis w IV contrast CT Clinical [...] to patient size -Use of iterative reconstruction [employer] ue CT Radiation Dose DLP 1217 mGy-cm [...] Unchanged right adrenal nodule SL: [id number] 02/22/[address] [facility] Chest 1view DX Clinical Indica tion: - HTN, vomiting; Comparison: June 18, 2016 FINDINGS: AP chest radiographs shows normal lung volumes without interstitial or airspace opacities, pleural effusions or pneumothorax. The heart size and pulmonary vasculature are normal. The trachea is midline. There are no clinically significant osseous abnormalities noted. IMPRESSION: No chest radiographic evidence of acute cardiopulmonary disease. SL: [id number] 02/22/[address] [facility] Abdomen/Pelvis w IV contrast CT EXAM: [...] right adrenal adenoma. 3. Mild splenomegaly. SL: [id number] 01/17/[address] [facility] Ext Lower Venous Doppler Bilat US [...] examined veins of both lower extremities. SL: [id number] 12/23/[address] [facility] Retroperitoneal Complete US Dashawn lbkrista Name: VERONICA MURRELL : 1970; Age: 46 years y/o Female MR: [id number] Study: Retroperitoneal Complete US Clinical Indication: Renal [...] unremarkable. IMPRESSION: 1. Unremarkable renal U/S SL: [id number] 09/09/[address] [facility] Abdomen/Pelvis wo IV contrast CT Study: [...] cm right adrenal adenoma. SL: [id number] 09/08/[address] [facility] Abdomen wo contrast MRI Abdome n [...] function tests recommended. Right adrenal adenoma. SL: [id number] 08/19/[address] [facility] Abdomen/Pelvis wo IV contrast CT CT [...] is present . Anemia. SL: [id number] 08/17/2016 [facility] wo contrast MRI EXAM: [...] sequences were not obtained, limiting exam. SL: [id number] 06/19/[address] [facility] Chest 1view DX Exam: Chest X- Ray Clinical Indication: dyspnea Technique: Frontal view of the chest is provided. Findings: Heart and mediastinum are normal. Lungs are clear. There are no pleural effusions. Impression: No acute intrathoracic disease. 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 SL: [id number] 06/18/[address] [facility] ED Abdomen/Pelvis IV contrast only CT [...] cm hypode nse right adrenal nodule. SL: [id number] 06/07/[address] [facility] Abdomen/Pelvis w IV contrast CT EXAM: [...] n odule. 4. Cholecystectomy. SL: [id number] 01/19/[address] [facility] Consultation Notes No Data Provided for This Section Discharge Summaries No Data Provided for This Section History and Physicals No Data Provided for This Section Vital Signs Vital Sign Value Date Comments Source Systolic (mm Hg) 147 12/11/[address] [facility] Diastolic (mm Hg) 98 12/11/[address] [facility] Respitory Rate 16 12/11/[address] [facility] Systolic (mm Hg) 147 12/11/[address] [facility] Diastolic (mm Hg) 98 12/11/[address] [facility] Respitory Rate 15 12/11/[address] [facility] Respitory Rate 16 12/11/[address] [facility] Heart Rate 63 12/11/[address] [facility] Height 167.64 cm 12/06/[address] [facility] Weight 97.784 12/06/[address] [facility] BMI Calculated 34.79 12/06/[address] [facility] Temperature Oral (F) 98.7 F 12/06/[address] [facility] Heart Rate 71 12/06/[address] [facility] Systolic (mm Hg) 148 11/14/2018 [facility] Diastolic (mm Hg) 91 11/14/2018 [facility] Heart Rate 93 11/14/2018 [facility] Height 167.64 cm 11/14/2018 [facility] Weight 90.909 11/14/2018 [facility] BMI Calculated 32.35 11/14/2018 [facility] Respitory Rate 18 [...] F 02/22/2018 [facility] Height 167.64 cm 02/22/[address] [facility] BMI Calculated 29.11 02/22/2018 [facility] Temperature [...] 11/15/2016 [facility] Heart Rate 78 11/15/[address] [facility] Heart Rate 69 11/08/[address] [facility] Temperature Oral (F) 98.1 F 11/08/2016 [facility] Systolic (mm Hg) 113 11/08/2016 [facility] Diastolic (mm Hg) 74 11/08/2016 [facility] Respitory Rate 18 11/08/2016 [facility] Resp[facility] Rate 18 11/02/[address] [facility] Temperature Oral (F) 98.8 F 11/02/[address] [facility] Heart Rate 53 11/02/2016 [facility] Systolic (mm Hg) 170 11/02/2016 [facility] Diastolic (mm Hg) 90 11/02/[address] [facility] BMI Calculated 31.37 10/15/[address] [facility] Weight 88.12 10/15/[address] [facility] Height 167.6 cm 10/15/[address] [facility] Temperature Oral (F) 98.8 F 09/10/[address] [facility] Respitory Rate 18 09/10/[address] [facility] Systolic (mm Hg) 186 09/10/[address] [facility] Diastolic (mm Hg) 97 09/10/[address] [facility] Heart Rate 54 09/10/[address] [facility] Systolic (mm Hg) 141 09/10/2016 [facility] Diastolic (mm Hg) 79 09/10/[address] [facility] Respitory Rate 18 09/10/[address] [facility] Heart Rate 47 09/10/[address] [facility] Temperature Oral (F) 98.3 F 09/10/[address] [facility] Systolic (mm Hg) 112 09/10/2016 [facility] Diastolic (mm Hg) 74 09/10/[address] [facility] Respitory Rate 18 09/10/[address] [facility] Heart Rate 48 09/10/[address] [facility] Temperature Oral (F) 98.0 F 09/10/2016 [facility] BMI Calculated 31.38 09/08/2016 [facility] Weight 88.182 09/08/2016 [facility] Height 167.64 cm 09/08/2016 [facility] Weight 88.182 09/08/2016 [facility] Height 167.64 cm 09/08/2016 [facility] BMI Calculated 31.38 09/08/2016 [facility] Systolic (mm Hg) 130 08/20/2016 [facility] Diastolic (mm Hg) 88 08/20/[address] [facility] Temperature Oral (F) 98.5 F 08/20/[address] [facility] Heart Rate 55 08/20/[address] [facility] Respitory Rate 18 08/20/2016 [facility] Respitory Rate 16 08/20/2016 [facility] Systolic (mm Hg) 119 08/20/2016 [facility] Diastolic (mm Hg) 78 08/20/[address] [facility] Heart Rate 50 08/20/2016 [facility] Respitory Rate 16 08/20/2016 [facility] Systolic (mm Hg) 146 08/20/[address] [facility] Diastolic (mm Hg) 92 08/20/[address] [facility] Heart Rate 52 08/20/[address] [facility] Temperature Oral (F) 98.5 F 08/20/[address] [facility] Temperature Oral (F) 98.7 F 08/20/2016 [facility] Height 167.64 cm 08/17/2016 [facility] Weight 91.364 08/17/2016 [facility] BMI Calculated 32.51 08/17/[address] [facility] Respitory Rate 18 06/20/2016 [facility] Systolic (mm Hg) 145 06/20/2016 [facility] Diastolic (mm Hg) 91 06/20/[address] [facility] Temperature Oral (F) 98.1 F 06/20/[address] [facility] Heart Rate 86 06/20/2016 [facility] Systolic (mm Hg) 112 06/20/2016 [facility] Diastolic (mm Hg) 71 06/20/2016 [facility] Respitory Rate 18 06/20/[address] [facility] Heart Rate 93 06/20/[address] [facility] Temperature Oral (F) 98.4 F 06/20/[address] [facility] Heart Rate 82 06/20/[address] [facility] Temperature Oral (F) 98.1 F 06/20/[address] [facility] Systolic (mm Hg) 122 06/20/[address] [facility] Diastolic (mm Hg) 82 06/20/[address] [facility] Respitory Rate 18 06/20/2016 [facility] Height 165.1 cm 06/19/2016 [facility] Weight 90.2 06/19/2016 [facility] BMI Calculated 33.09 06/19/2016 [facility] Weight 81.818 06/19/2016 [facility] BMI Calculated 30.02 06/19/2016 [facility] Height 165.1 cm 06/19/2016 [facility] Respitory Rate 18 06/07/2016 [facility] Systolic (mm Hg) 137 06/07/2016 [facility] Diastolic (mm Hg) 79 06/07/[address] [facility] Temperature Oral (F) 97.7 F 06/07/[address] [facility] Heart Rate 56 06/07/2016 [facility] Height 167.64 cm 06/07/2016 [facility] Weight 95.455 06/07/2016 [facility] BMI Calculated 33.97 06/07/2016 [facility] Respitory Rate 18 06/07/[address] [facility] Temperature Oral (F) 98 F 06/07/[address] [facility] Heart Rate 60 06/07/2016 [facility] Systolic (mm Hg) 104 06/07/2016 [facility] Diastolic (mm Hg) 71 06/07/[address] [facility] Respitory Rate 20 01/19/2016 [facility] Systolic (mm Hg) 173 01/19/[address] [facility] Diastolic (mm Hg) 88 01/19/[address] [facility] Heart Rate 100 01/19/[address] [facility] Temperature Oral (F) 97.9 F 01/19/2016 [facility] Systolic (mm Hg) 173 01/19/[address] [facility] Diastolic (mm Hg) 97 01/19/[address] [facility] Systolic (mm Hg) 180 01/19/[address] [facility] Diastolic (mm Hg) 96 01/19/[address] [facility] Respitory Rate 20 01/19/[address] [facility] Temperature Oral (F) 99.0 F 01/19/[address] [facility] Heart Rate 100 01/19/[address] [facility] BMI Calculated 35.58 01/19/[address] [facility] Weight 100 01/19/[address] [facility] Height 167.64 cm 01/19/[address] [facility] Heart Rate 121 01/19/[address] [facility] Respitory Rate 18 01/19/[address] [facility] Temperature Oral (F) 99.2 F 01/19/[address] [facility] Systolic (mm Hg) 123 09/09/[address] [facility] Diastolic (mm Hg) 60 09/09/[address] [facility] Temperature Oral (F) 97.9 F 09/09/[address] [facility] Respitory Rate 18 09/09/[address] [facility] Heart Rate 68 09/09/2014 [facility] Weight 109.091 09/08/[address] [facility] BMI Calculated 38.82 09/08/[address] [facility] Height 167.64 cm 09/08/[address] [facility] Temperature Oral (F) 98.6 F 09/08/[address] [facility] Respitory Rate 18 09/08/[address] [facility] Heart Rate 85 09/08/2014 [facility] Systolic (mm Hg) 120 09/08/[address] [facility] Diastolic (mm Hg) 76 09/08/[address] [facility] Encounters Location Location Details Encounter Type Encounter Number Reason For Visit Attending Provider ADM Date DC Date Status Source [facility] [id number] 01 Juan Pablo Graff 09/08/2014 09/09/2014 [facility] Emergency [id number] Garrett Maldonado 01/19/2016 01/19/2016 [facility] Emergency [id number] Juan Pablo Graff 06/07/2016 06/07/2016 [facility] Observation [id number] Amir Ghebranious 06/19/2016 06/20/2016 [facility] Inpatient [id number] Amir Ghebranious 08/17/2016 08/20/2016 [facility] Observation [id number] Amir Ghebranious 09/08/2016 09/10/2016 [facility] Recurring [id number] Jamie Archer 10/18/2016 11/17/2016 [facility] Outpatient [id number] Brie Reeves 12/23/2016 12/24/2016 [facility] Emergency [id number] Lencho Berg 01/17/2017 01/18/2017 [facility] Emergency [id number] Jb Leslye 02/22/2018 02/23/2018 [facility] Neurosurgery [facility] Phone Message [id number] 10/25/2018 10/27/2018 [facility] [id number] [facility] 11/14/2018 [facility] Neurosurgery [facility] Outpatient [id number] [facility] 11/14/2018 11/15/2018 [facility] [id number] [facility] 12/11/2018 [facility] Outpatient [id number] [facility] 12/11/2018 12/11/2018 [facility] Outpatient [id number] Jb [facility] 02/23/2019 02/24/[address] [facility] Procedures Procedure Code Date Perfomer Comments Source Cholecystectomy [id number] [facility] Hernia repair [id number] [facility] Tasha-en-y gastric bypass [id number],[facility] Colonoscopy [id number] [facility] st Hysterectomy [id number] [facility] st Assessment and Plan Assessment and Plan Date Source Extracted from:Title: Clinical Document Author: Shiva Mcclure MD Date: 09/10/16 Progress Note - Daily [facility] Completed: Sep, 08:30 by Shiva [...] QSHIFT 09/08/16 pantoprazole (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 TEACHING ATTESTATION Extracted [...] history of kidney stones, herbal supplements, any [id number] medications, chronic UTIs, chronic obstruction from the [...] All Problems HTN (hypertension) / SNOMED CT 2109916629 / Confirmed Diabetes / SNOMED CT 295526580 / Confirmed Bipolar disorder / SNOMED CT 7280882196 / Confirmed Anxiety / SNOMED CT 2732507726 / Confirmed Nausea / SNOMED CT 6574747480 / Confirmed HLD (hyperlipidemia) / SNOMED CT 95745917 / Confirmed, Active Problems (6) Anxiety Bipolar disorder Diabetes HLD (hyperlipidemia) HTN (hypertension) Nausea Histories Past Medical History: Active HTN (hypertension) (1885970655) Diabetes (011052334) HLD (hyperlipidemia) (93640396) Bipolar disorder (0621221557) Anxiety (0876153428) Family History: High blood pressure Father Mother Heart failure Father Bipolar disorder Brother Type 2 diabetes mellitus Mother Sister Father Myeloma Mother CA - Cancer of ovary Mother Stroke Sister Heart attack Father Hepatitis Brother Kidney stone Brother Deep vein thrombosis Father Back pain Father Procedure history: Cholecystectomy (95373421). Tasha-en-y gastric bypass (2201495027). Hernia repair (80013299). Social History Social and Psychosocial Habits Alcohol [...] atenolol and clonidine. Monitor very closely 09/10/[address] [facility] Extracted from:Title: Clinical Document Author: Shiva Mcclure MD Date: 08/20/16 Progress Note - Daily [facility] Completed: Saturday, AUGUST 20, 2016, 14:41 by Shiva Mcclure MD RM: 306 - 1D, SE C3BS VERONICA MURRELL 46y (: 1970) F Attending: Shiva Mcclure MD Service: Internal Medicine Reason for Admission: INTRACTABLE NAUSEA AND VOMITING Working DRG: Esophagitis, gastroent and misc digest disorders w/o [facility] Code status: Full Code [Ordered] Current diet: [...] EXAM PLAN and TREATMENT DIAGNOSES and PROBLEMS [id number] Ready for Discharge (Yes/No)? TEACHING ATTESTATION 08/20/[address] [facility] Plan of Care No Data Provided for This Section Social History Social History Date Source Social History TypeResponse Alcohol Never Employment/School Status: Unemployed. Substance Abuse Use: None. Smoking Status Never smoker; Ready to change: No; Concerns about tobacco use in household: No; Exposure to Tobacco Smoke None; Cigarette Smoking Last 365 Days No; Reg Smoking Cessation Counseling No entered on: 12/11/18 12/06/[address] [facility] Social History TypeResponse Alcohol Never Smoking [...]
[2019-09-11] MEDS ORDERED: PIPER-TAZ 3.375 GM 50 ML IV STA (15:26)
[2019-09-11] MEDS ORDERED: HYDROCODONE/APAP 7.5MG-325MG 1 EA TAB PO PRN (15:30)
--- NOTE | 2019-09-11 15:59 | Emergency Department Note ---
History of Present Illnes History of Present Illness Chief Complaint: General Medicine Complaints History of Present Illness 49yf presented to ed c/o cont. redness swelling left lower leg recently released from hosp - treated for cellulitis - sts its getting worse - also c/o poss abscess to buttocks Chief Complaint Comment HERE FOR ADMISSION FOR RIGHT LOWER EXT CELLULITITS AND GLUTEAL ABSCESS PER DR. TOTH, TO BE ADMITTED TO DR. LONG. WAS RECENTLY DISCHARGED FOR THE SAME. This is a 49 year old female . Historian: Patient Arrival Mode: Car Onset (how long ago): day(s) (today) Radiation: Denies non-radiation, Denies back, Denies neck, Denies extremity, Denies abdomen, Denies periumbilical, Denies flank, Denies proximal, Denies distal, Denies other Severity: mild Onset quality: gradual Duration (how long): day(s) (several days ) Progression: worsening Context: Denies recent illness, Denies recent surgery, Denies recent immobilization, Denies recent travel, Denies trauma/injury, Denies new medications, Denies hx of DVT/PE, Denies non-compliance w/ medications, Denies other Relieving factors: none Exacerbating factors: none Treatments prior to arrival: none Past Medical/Family History Physician Review I have reviewed the patient's past medical and family history. Any updates have been documented here. Past Medical History Recent Fever: No Clinical Suspicion of Infectio: Yes New/Unexplained Change in Ment: No Past Medical History: Hypertension, Diabetes, Anxiety, Depression, Chronic Back Pain Other Medical History: INSOMNIA Past Surgical History: Hysterectomy, Bariatric Surgery Other Surgery: TONSILLECTOMY, TUMOR REMOVAL (OF NASAL PASSAGE) Social History Smoking Cessation: Never Smoker Alcohol Use: None Any Illegal Drug Use: No TB Exposure/Symptoms: No Physically hurt or threatened: No Family History Family history of heart diseas: No Other Last Tetanus: UNKNOWN Any Pre-Existing Lines (PICC,: No Review of Systems Review of Systems Constitutional: Reports no symptoms EENTM: Reports no symptoms Cardiovascular: Reports no symptoms Respiratory: Reports no symptoms Gastrointestinal: Reports no symptoms Genitourinary: Reports no symptoms Musculoskeletal: Reports no symptoms Integumentary: Reports no symptoms, Reports other (c/po redness swelling to right lower leg) Neurological: Reports no symptoms Psychological: Reports no symptoms Endocrine: Reports no symptoms Hematological/Lymphatic: Reports no symptoms Review of other systems All other systems reviewed and negative. Physical Exam Related Data Allergies: Coded Allergies: No Known Drug Allergies (Verified Allergy, Mild, 07/17/07) Triage Vital Signs Vital Signs Date Time Temp Pulse Resp B/P (MAP) Pulse Ox O2 Delivery O2 Flow Rate FiO2 09/11/19 15:13 97.2 76 16 161/105 98 Vital signs reviewed: Yes Physical Exam CONSTITUTIONAL Constitutional: Reports well-developed, Reports well-nourished HENT EYES NECK PULMONARY CARDIOVASCULAR GASTROINTESTINAL GENITOURINARY SKIN Skin: Reports other (noted redness minmal swelling to r lower anterior medial leg exam c/w cellulitis ttp no distal neuor deficits - also c/o poss abscess to butocks no abscess noted noted large days old bruise to left buttock cheek ) MUSCULOSKELETAL NEUROLOGICAL PSYCHOLOGICAL Results Laboratory Laboratory Laboratory Tests Test 09/11/19 16:15 White Blood Count 7.80 x10e3/uL (4.8-10.8) Red Blood Count 3.26 x10e6/uL (3.6-5.1) Hemoglobin 9.8 g/dL (12.0-16.0) Hematocrit 31.7 % (34.2-44.1) Mean Corpuscular Volume 97.2 fL (81-99) Mean Corpuscular Hemoglobin 30.1 pg (28-32) Mean Corpuscular Hemoglobin Concent 30.9 g/dL (31-35) Red Cell Distribution Width 14.6 % (11.7-14.4) Platelet Count 236 x10e3/uL (140-360) Neutrophils (%) (Auto) 68.0 % (38.7-80.0) Lymphocytes (%) (Auto) 21.8 % (18.0-39.1) Monocytes (%) (Auto) 7.3 % (4.4-11.3) Eosinophils (%) (Auto) 1.9 % (0.0-6.0) Basophils (%) (Auto) 0.4 % (0.0-1.0) Neutrophils # (Auto) 5.3 (2.1-6.9) Lymphocytes # (Auto) 1.7 (1.0-3.2) Monocytes # (Auto) 0.6 (0.2-0.8) Eosinophils # (Auto) 0.2 (0.0-0.4) Basophils # (Auto) 0.0 (0.0-0.1) Absolute Immature Granulocyte (auto 0.05 x10e3/uL (0-0.1) Sodium Level 137 mmol/L (136-145) Potassium Level 5.6 mmol/L (3.5-5.1) Chloride Level 107 mmol/L (98-107) Carbon Dioxide Level 19 mmol/L (22-29) Anion Gap 16.6 mmol/L (8-16) Blood Urea Nitrogen 34 mg/dL (7-26) Creatinine 1.33 mg/dL (0.57-1.11) Estimat Glomerular Filtration Rate 42 ML/MIN (60-) BUN/Creatinine Ratio 26 (6-25) Glucose Level 70 mg/dL (74-118) Calcium Level 9.2 mg/dL (8.4-10.2) Total Bilirubin 0.2 mg/dL (0.2-1.2) Aspartate Amino Transf (AST/SGOT) 25 IU/L (5-34) Alanine Aminotransferase (ALT/SGPT) 20 IU/L (0-55) Alkaline Phosphatase 119 IU/L (40-150) Total Protein 7.0 g/dL (6.5-8.1) Albumin 3.8 g/dL (3.5-5.0) Globulin 3.2 g/dL (2.3-3.5) Albumin/Globulin Ratio 1.2 (0.8-2.0) Lab results reviewed: Yes Assessment & Plan Medical Decision Making MDM 49yf presented to ed c/o cont. redness swelling left lower leg recently released from hosp - treated for cellulitis - sts its getting worse D/D cellulitis / absess / dvt Reassessment Reassessment pt recently in hosp here release 09/06 had neg dvt to r leg 09/05 out pt tx failed discussed lab results plan of care and need for admit spoke w/ Dr Long will admit Assessment & Plan Final Impression: (1) CELLULITIS OF RIGHT LOWER LIMB Depart Disposition: ADMITTED Last Vital Signs Date Time Temp Pulse Resp B/P (MAP) Pulse Ox O2 Delivery O2 Flow Rate FiO2 09/11/19 15:13 97.2 76 16 161/105 98 Home Meds Active Scripts [Lactobacillus Acidophilus] 1 TAB TAB No Conflict Check, 1 TAB PO BID for 14 Days Prov:DASIA LERNER LINER INSERTER 09/09/19 Metformin Hcl (GLUCOPHAGE XR) 500 Mg Tab.er.24h, 1000 MG PO BIDWM for 60 Days Prov:DASIA LERNER LINER INSERTER 09/09/19 Glipizide (GLIPIZIDE) 5 Mg Tablet, 5 MG PO BID, #60 TAB Prov:DASIA LERNER LINER INSERTER 09/09/19 Clindamycin Hcl (CLEOCIN HCL) 150 Mg Capsule, 300 MG PO QID for 7 Days, CAP Prov:DASIA LERNER LINER INSERTER 09/09/19 Reported Medications Escitalopram Oxalate (LEXAPRO) 20 Mg Tablet, 20 MG PO HS, TAB 09/09/19 Gabapentin (GABAPENTIN) 300 Mg Capsule, 300 MG PO TID, #60 CAP 09/09/19 Tizanidine Hcl (TIZANIDINE HCL) 4 Mg Capsule, 1 CAP PO DAILY 09/09/19 Meloxicam (MELOXICAM) 7.5 Mg Tablet, 7.5 MG PO DAILY, #30 TAB 09/09/19 Clonazepam (CLONAZEPAM) 0.5 Mg Tablet, 0.5 MG PO TID, TAB 09/09/19 Aripiprazole (ABILIFY) 5 Mg Tablet, 5 MG PO DAILY, #30 TAB 09/09/19 Clonidine Hcl (CLONIDINE HCL) 0.1 Mg Tablet, 1 TAB PO BID, #60 TAB 09/09/19 Losartan Potassium (LOSARTAN POTASSIUM) 25 Mg Tablet, 1 TAB PO DAILY 09/09/19 Medications in the ED Piperacillin Sod/ Tazobactam Sod 50 ml @ 50 mls/hr ONCE STAT IV ; Start 09/11/19 at 15:26; Stop 09/11/19 at 16:25 Vancomycin HCl 250 ml @ 167 mls/hr ONCE ONCE IV ; Start 09/11/19 at 16:30; Stop 09/11/19 at 17:59 Acetaminophen/ Hydrocodone Bitart 1 ea ONCE PRN PO MODERATE PAIN (4-6); Start 09/11/19 at 15:30; Stop 09/18/19 at 15:29 AMBROSIO PARDO MD Sep 11, 2019 15:59
[2019-09-11] MEDS ORDERED: VANCOMYCIN 1GM/NS 250 ML 250 ML IV ONE (16:30)
[2019-09-11 16:42] LABS: BASOPHILS % 0.4 % (0.0-1.0); EOSINOPHILS # (AUTO) 0.2 (0.0-0.4); EOSINOPHILS % 1.9 % (0.0-6.0); HEMATOCRIT 31.7 % (34.2-44.1); HEMOGLOBIN 9.8 g/dL (12.0-16.0); LYMPHOCYTES # (AUTO) 1.7 (1.0-3.2); LYMPHOCYTES % 21.8 % (18.0-39.1); MEAN CORPUSCULAR HEMOGLOBIN 30.1 pg (28-32); MEAN CORPUSCULAR HGB CONC 30.9 g/dL (31-35); MEAN CORPUSCULAR VOLUME 97.2 fL (81-99); MONOCYTES # (AUTO) 0.6 (0.2-0.8); MONOCYTES % 7.3 % (4.4-11.3); NEUTROPHILS # (AUTO) 5.3 (2.1-6.9); PLATELET COUNT 236 x10e3/uL (140-360); RED BLOOD COUNT 3.26 x10e6/uL (3.6-5.1); RED CELL DISTRIBUTION WIDTH 14.6 % (11.7-14.4)
[2019-09-11 16:54] LABS: ALBUMIN 3.8 g/dL (3.5-5.0); ALBUMIN/GLOBULIN RATIO 1.2 (0.8-2.0); ANION GAP 16.6 mmol/L (8-16); CALCIUM 9.2 mg/dL (8.4-10.2); CREATININE, SERUM 1.33 mg/dL (0.57-1.11); POTASSIUM 5.6 mmol/L (3.5-5.1)
[2019-09-11] MEDS ORDERED: SODIUM CHLORIDE 0.9% 1000ML 1,000 ML IV STA (17:11)
[2019-09-11] MEDS ORDERED: DEXTROSE 50% SYRINGE 50 ML IV PRN (17:15)
[2019-09-11] MEDS ORDERED: ONDANSETRON HCL INJ 2MG/ML 2ML 2 MG/ML VIAL IV PRN (17:15)
[2019-09-11 17:16] LABS: CLARITY,URINE SL CLOUDY (CLEAR); COLOR,URINE YELLOW (YELLOW); LEUKOCYTE ESTERASE ,URINE SMALL (NEGATIVE); NITRITE,URINE NEGATIVE (NEGATIVE)
[2019-09-11 17:17] LABS: BILIRUBIN,URINE NEGATIVE (NEGATIVE); KETONES,URINE NEGATIVE (NEGATIVE); PROTEIN,URINE DIPSTICK NEGATIVE (NEGATIVE); URINE UROBILINOGEN 0.2 mg/dL (0.2 - 1)
[2019-09-11 17:32] LABS: BACTERIA,URINE MODERATE /HPF; EPITHELIAL CELLS,URINE MODERATE /LPF; RBC,URINE 0-5 /HPF (0-5)
[2019-09-11 17:58] LABS: CREATINE KINASE MB 3.9 ng/mL (0-5.0)
[2019-09-11] MEDS: INSULIN LISPRO 100 UNIT/1 ML 3ML VIAL SQ SCH (18:14)
--- NOTE | 2019-09-11 18:27 | NUR ---
{null, PATIENT SITTING UP IN BED EATING JELLO AND PUDDING }
[2019-09-11] MEDS: DEXTROSE 5%/0.9% SOD CHL 1,000 ML IV SCH (18:30)
--- NOTE | 2019-09-11 18:41 | NUR ---
{null, PATIENT GIVEN SANDWICH }
--- OUTSIDE RECORDS SUMMARY | 2019-09-11 19:02 | XMS REPORT | Clinical Summary ---
Author Author [facility] Organization [facility] Address Unknown Phone Unavailable Care Team Providers Care Golf Course Designer Name Role Phone PCP Unavailable Allergies Comments [...] obesity 07/05/2016 H/O bipolar disorder - per [facility] Records 07/05/2016 S/P cholecystectomy 07/05/2016 s/p gastric [...] Comments Vital Sign 136/90 04/19/2019 8:15 AM BUTTON ATTACHING MACHINE OPERATOR Blood Pressure 67 04/19/2019 8:15 AM BUTTON ATTACHING MACHINE OPERATOR Pulse 36.8 C (98.2 F) 04/19/2019 8:15 AM BUTTON ATTACHING MACHINE OPERATOR Temperature 18 04/19/2019 8:15 AM BUTTON ATTACHING MACHINE OPERATOR Respiratory Rate - - Oxygen Saturation - - Inhaled Oxygen Concentration 101.6 kg (224 lb) 04/19/2019 8:15 AM BUTTON ATTACHING MACHINE OPERATOR Weight 167.6 cm (5' 6") 04/19/2019 8:15 AM BUTTON ATTACHING MACHINE OPERATOR Height 36.15 04/19/2019 8:15 AM BUTTON ATTACHING MACHINE OPERATOR Body Mass Index Plan of Treatment Care Team Description Date Type Specialty Cortez Umanzor MD [address] [facility] [id number] [place] [address] 2 month follow up appointment [...] / Dates Group MEDICARE MEDICARE xxxxxxxxxxx 2016-P [id number] [place] [address] [place] MEDICAID [id number] xxxxxxxxx 2016-P [phone] [id number] MEDICARE [place], [place] BENEFICIAR [id number] Y
--- OUTSIDE RECORDS SUMMARY | 2019-09-11 19:02 | XMS REPORT | Clinical Summary ---
Author Author [facility] Address Unknown Phone Unavailable Care Team Providers Care Nurses Educator Name Role Phone PCP Unavailable Allergies Not [...]
--- OUTSIDE RECORDS SUMMARY | 2019-09-11 19:03 | XMS REPORT | Continuity of Care Document ---
Author Author [employer] Exchange[employer]ONICA [employer] Address Unknown Phone Unavailable Care Team Providers Care Sharepoint [employer] Architect Name Role Phone [employer] Unavailable Un available Problems Problem Status Onset Date Classification Date Reported Comments Source M54.16 RADICULOPATHY, LUMBAR REGION, M54 Active 02/13/2019 [facility] UNK Active 0 11/16/2018 [facility] Type 2 diabetes mellitus with hyperglycemia 03/01/2018 09/11/2018 [facility] Other disorder of circulatory system 02/22/2018 09/11/2018 [facility] Hyperglycemia, unspecified 02/22/2018 09/11/2018 [facility] Nausea with vomiting, unspecified 02/22/2018 09/11/2018 [facility] VOMITING Active 02/22/2018 [facility] Vomiting, unspecified 01/17/2017 01/20/2017 [facility] M79.89 Active 12/21/2016 [facility] VENOFER / 200MG / [id number] / [id number] / D50.9 Active 10/15/2016 [facility] ACUTE RENAL FAILURE Active 09/07/2016 [facility] N/V Active 0 09/07/2016 [facility] INTRACTABLE NAUSEA AND VOMITING Active 08/17/2016 [facility] SEVERE UNCONTROLLED HYPERTENSION Active 06/18/2016 [facility] AMS Active 0 06/18/2016 [facility] Unspecified abdominal pain 06/07/2016 06/10/2016 [facility] BACK PAIN Active 06/07/2016 [facility] Discharge Diagnosis: Acute esophagitis 01/19/2016 01/22/2016 [facility] Discharge Diagnosis: Nausea with vomiting 01/19/2016 01/22/2016 [facility] Discharge Diagnosis: Acid reflux 01/19/2016 01/22/2016 [facility] ABD PAIN/VOMITING Active 01/18/2016 [facility] Discharge Diagnosis: Right-sided chest wall pain 09/08/2014 09/11/2014 [facility] FLANK PAIN Active 09/08/2014 [facility] Anxiety (finding) Active Problem 02/25/2019 [facility] Diabetes mellitus (disorder) A ctive Problem [facility] Hyperlipidemia (disorder) Acti ve Problem [facility] Hypertensive disorder, systemic arterial (disorder) Active Problem 02/25/2019 [facility] Bipolar disorder (disorder) Ac tive Problem [facility] Nausea (finding) Active Problem 02/25/2019 [facility] Degeneration of lumbar intervertebral disc (disorder) Active Problem 02/25/2019 [facility] Simple obesity (disorder) Acti ve Problem [facility] Essential (primary) hypertension 09/11/2018 [facility] Bariatric surgery status 09/11/2018 [facility] 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 09/11/2018 [facility] 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 09/11/2018 [facility] Other alf (current) drug therapy 09/11/2018 [facility] ESSENTIAL (PRIMARY) HYPERTENSION Active [facility] NAUSEA WITH VOMITING, UNSPECIFIED Active [facility] ACUTE KIDNEY FAILURE, UNSPECIFIED Active [facility] IRON DEFICIENCY ANEMIA, UNSPECIFIED Active [facility] OTHER SPECIFIED SOFT TISSUE DISORDERS Active [facility] RADICULOPATHY, LUMBAR REGION A ctive [facility] Medications Medication Details Route Status Patient Instructions Ordering Provider Order Date Source Senokot 2 tab, Route: PO, Dosi ng Weight 97.784, kg, Daily, Start date: 12/12/18 9:00:00 CDT, Duration: 30 day, Stop date: 01/10/19 9:00:00 CDT No Longer Active 12/12/2018 [facility] heparin sodium, porcine 2500 UNT/ML Injectable Solutio n 5,000 unit, Route: SUB-Q, Drug form: INJ, Q12H, Dosing Weight 97.784, kg, Start date: 12/12/18 8:00:00 CDT, Duration: 30 day, Stop date: 01/10/19 21:00:00 CDT No Longer Active 12/12/2018 [facility] Famotidine 20 MG Oral Tablet [Pepcid] 20 mg, 1 tab, Route: PO, Drug form: TAB, Q12H, Dosing Weight 97.784, kg, Start date: 12/11/18 21:00:00 CDT, Duration: 30 day, Stop date: 01/10/19 9:00:00 CDT Inactive 12/12/2018 [facility] Docusate Sodium 100 MG Oral Capsule [Colace] 100 mg, 1 cap, Route: PO, BID, Dosing Weight 97.784, kg, Start date: 12/11/18 17:00:00 CDT, Duration: 30 day, Stop date: 01/10/19 9:00:00 CDT Inactive 12/11/2018 [facility] Oxycodone Hydrochloride 5 MG Oral Tablet 10 mg, Route: PO, Drug form: TAB, ONCE, Dosing Weight 97.784, kg, PRN Pain Score 7-10, Start date: 12/11/18 13:02:00 CDT Inactive 12/11/2018 [facility] ondansetron (ANES) Route: IV, Drug form: INJ, ONCE, Stop date: 12/11/18 12:00:00 CDT Inactive 12/11/2018 [facility] glycopyrrolate (ANES) Route: I V, Drug form: INJ, ONCE, Stop date: 12/11/18 12:00:00 CDT Inactive 12/11/2018 [facility] neostigmine (ANES) Route: IV, Drug form: INJ, ONCE, Stop date: 12/11/18 12:00:00 CDT Inactive 12/11/2018 [facility] metoclopramide ([facility]) Route: I V, Drug form: INJ, ONCE, Stop date: 12/11/18 12:00:00 CDT Inactive 12/11/2018 [facility] Acetaminophen 325 MG / Hydrocodone Derian trate 10 MG Oral Tablet [Midway 10/325] 1 tab, PO, Q6H, # 60 tab, 0 Refill(s), g iven to patient Active 12/11/2018 [facility] Sodium Chloride 0.9% IV 1000 mL 1,000 mL, Rate: 75 ml/hr, Infuse over: 13.3 hr, Route: IV, Dosing Weight 97.784 kg, Total Volume: 1,000, Start date: 12/11/18 11:49:00 CDT, Duration: 30 day, Stop date: 01/10/19 11:48:00 CDT, 2.16, m2 Inactiv e 12/11/2018 [facility] Cefazolin 1 gm, Route: IVPB, D rug form: INJ, Q8H, Dosing Weight 97.784, kg, Start date: 12/11/18 11:49:00 CDT, Duration: 3 doses or times, Stop date: 12/12/18 0:00:00 CDT, ABX Indication: Surgical Prophylaxis Inactive 12/11/2018 [facility] Tylenol 650 mg, Route: PO, Jose g form: TAB, Q4H, Dosing Weight 97.784, kg, PRN Pain, Start date: 12/11/18 11:49:00 CDT, Duration: 30 day, Stop date: 01/10/19 11:48:00 CDT Inactive 12/11/2018 [facility] Dilaudid 0.5 mg, Route: IV, Q3 H, Dosing Weight 97.784, kg, PRN Pain, Start date: 12/11/18 11:49:00 CDT, Duration: 30 day, Stop date: 01/10/19 11:48:00 CDT Inactive 12/11/2018 [facility] Acetaminophen 325 MG / Hydrocodone Derian trate 5 MG Oral Tablet 1 tab, Route: PO, Drug Form: TAB, Dosing Weight 97.784, kg, Q4H, PRN Pain, Start date: 12/11/18 11:49:00 CDT, Duration: 30 day, Stop date: 01/10/19 11:48:00 CDT Inactive 12/11/2018 [facility] Zofran 4 mg, Route: IV, Drug f orm: INJ, Q8H, Dosing Weight 97.784, kg, PRN Nausea, Start date: 12/11/18 11:49:00 CDT, Duration: 30 day, Stop date: 01/10/19 11:48:00 CDT Inactive 12/11/2018 [facility] magnesium citrate 300 ml, Rout e: PO, Drug Form: LIQ, Dosing Weight 97.784, kg, ONCE, PRN Constipation, Start date: 12/11/18 11:49:00 CDT Inactive 12/11/2018 [facility] lidocaine (ANES) Route: IV, Dr ug form: INJ, ONCE, Stop date: 12/11/18 11:19:00 CDT Inactive 12/11/2018 [facility] rocuronium (ANES) Route: IV, D rug form: INJ, ONCE, Stop date: 12/11/18 11:14:00 CDT Inactive 12/11/2018 [facility] fentaNYL (ANES) Route: IV, Jose g form: INJ, ONCE, Stop date: 12/11/18 11:03:00 CDT Inactive 12/11/2018 [facility] ceFAZolin (ANES) Route: IV, Dr ug form: INJ, ONCE, Stop date: 12/11/18 11:03:00 CDT Inactive 12/11/2018 [facility] propofol (ANES) Route: IV, Jose g form: INJ, ONCE, Stop date: 12/11/18 11:03:00 CDT Inactive 12/11/2018 [facility] midazolam (ANES) Route: IV, Dr ug form: SOLN, ONCE, Stop date: 12/11/18 10:58:00 CDT Inactive 12/11/2018 [facility] Lactated Ringers Injection IV (ANES) 1000 mL Route: IV, Total Volume: 1,000, Start date: 12/11/18 10:28:00 CDT, Stop date: 12/11/18 11:28:00 CDT Inactive 12/11/2018 [facility] Insulin regular 3 unit, Route: IV, ONCE, Dosing Weight 97.784, kg, Start date: 12/11/18 10:04:00 CDT, Stop date: 12/11/18 10:04:00 CDT Inactive 12/11/2018 [facility] Calcium Chloride 0.0014 MEQ/ML / Potassi um Chloride 0.004 MEQ/ML / Sodium Chloride 0.103 MEQ/ML / Sodium Lactate 0.028 MEQ/ML Injectable Solution 1,000 mL, Rate: 75 ml/hr, Infuse over: 1 3.3 hr, Route: IV, Dosing Weight 97.784 kg, Total Volume: 1,000, Start date: 12/11/18 9:38:00 CDT, Duration: 30 day, Stop date: 01/10/19 9:37:00 CDT, 2.16, m2 Inactive 12/11/2018 [facility] Sodium Chloride 0.9% IV 1000 mL 1,000 mL, Rate: 75 ml/hr, Infuse over: 13.3 hr, Route: IV, Dosing Weight 97.784 kg, Total Volume: 1,000, Start date: 12/11/18 9:38:00 CDT, Duration: 30 day, Stop date: 01/10/19 9:37:00 CDT, 2.16, m2 Inactive 12/11/2018 [facility] Insulin regular 5 unit, Route: IV, ONCE, Dosing Weight 97.784, kg, Start date: 12/11/18 9:30:00 CDT, Stop date: 12/11/18 9:30:00 CDT Inactive 12/11/2018 [facility] Clonidine 0 Refill(s) Active 11/14/2018 [facility] gabapentin 300 MG Oral Capsule 300 mg = 1 cap, PO, TID, 0 Refill(s) Active 11/14/2018 [facility] Zolpidem tartrate 10 MG Oral Tablet [Ambien] 10 mg = 1 tab, PO, Bedtime, 0 Refill(s) Active 11/14/2018 [facility] tizanidine PO, 0 Refill(s) Active 11/14/2018 [facility] Acetaminophen 325 MG / Hydrocodone Derian trate 10 MG Oral Tablet [Midway 10/325] 1 tab, PO, Q6H, 0 Refill(s) Active 11/14/2018 [facility] Losartan PO, Daily, 0 Refill(s) Active 11/14/2018 [facility] ARIPiprazole 0 Refill(s) Active 11/14/2018 [facility] Metformin hydrochloride 500 MG Oral Tablet 500 mg = 1 tab, PO, BID-Meals, # 60 tab, 0 Refill(s) Active 02/23/2018 [facility] Clonidine Hydrochloride 0.1 MG Oral Tablet 0.1 mg = 1 tab, PO, BID, # 60 tab, 3 Refill(s) Active 02/23/2018 [facility] Ondansetron 4 MG Oral Tablet [Zofran] 4 mg = 1 tab, PO, BID, # 10 tab, 0 Refill(s) Active 02/23/2018 [facility] Sodium Chloride 0.9% (Bolus) IV 1,000 mL, 1000 ml/hr, Infuse Over: 1 hr, Route: IV, 1,000, Drug form: INJ, ONCE, Priority: STAT, Dosing Weight 81.818 kg, Start date: 02/22/18 18:33:00 PIPELINE DISPATCHER, Stop date: 02/22/18 18:33:00 PIPELINE DISPATCHER Inactive 02/23/2018 [facility] Atenolol Notes: (Same As: min) Inactive 02/23/2018 [facility] Clonidine Notes: (Same As: Cat apres) Inactive 02/23/2018 [facility] Sodium Chloride 0.9% (Bolus) IV 1,000 mL, 1000 ml/hr, Infuse Over: 1 hr, Route: IV, 1,000, Drug form: INJ, ONCE, Priority: STAT, Dosing Weight 81.818 kg, Start date: 02/22/18 18:31:00 PIPELINE DISPATCHER, Stop date: 02/22/18 18:31:00 PIPELINE DISPATCHER Inactive 02/23/2018 [facility] Labetalol 10 mg, 2 mL, Route: IV, Drug form: INJ, ONCE, Dosing Weight 81.818, kg, Start date: 02/22/18 17:05:00 PIPELINE DISPATCHER, Stop date: 02/22/18 17:05:00 PIPELINE DISPATCHER Inactive 02/22/2018 [facility] Sodium Chloride 0.9% IV 984.8 mL + M.V.I .-12 10 mL Daily + folic acid IV 1 mg Daily + thiamine IV 5 984.8 mL, Rate: 100 ml/hr, Infuse over: 10 hr, Route: IV, Dosing Weight 81.818 kg, Total Volume: 1,000, Start date: 02/22/18 17:02:00 PIPELINE DISPATCHER, Duration: 1 doses or times, Stop date: 02/23/18 3:01:00 PIPELINE DISPATCHER, 1.97, m2 Inactive 02/22/2018 [facility] Sodium Chloride 0.9% (Bolus) IV 1,000 mL, 1000 ml/hr, Infuse Over: 1 hr, Route: IV, 1,000, Drug form: INJ, ONCE, Priority: STAT, Dosing Weight 81.818 kg, Start date: 02/22/18 16:59:00 PIPELINE DISPATCHER, Stop date: 02/22/18 16:59:00 PIPELINE DISPATCHER Inactive 02/22/2018 [facility] Zofran Notes: (Same as: Zofran ) MEDICATION WASTE Product Size: 4 mg Product Wasted: ___ mg Inactive 02/22/2018 [facility] Sodium Chloride 0.9% IV 984.8 mL + M.V.I .-12 10 mL Daily + folic acid IV 1 mg Daily + thiamine IV 5 Notes: PROTECT FROM LIGHT REFRIGERATE Inactive 02/22/2018 [facility] Ondansetron 4 MG Oral Tablet [Zofran] 4 mg = 1 tab, PO, BID, # 10 tab, 0 Refill(s) Active 01/18/2017 [facility] Ranitidine 150 MG Oral Tablet [Zantac] 150 mg = 1 tab, PO, BID, # 60 tab, 0 Refill(s) Active 01/18/2017 [facility] GI cocktail 30 mL, Route: PO, Dosing Weight 91.818, kg, ONCE, STAT, Start date: 01/17/17 20:34:00 CDT, Stop date: 01/17/17 20:34:00 CDT Inactive 01/18/2017 [facility] Morphine 4 mg, Route: IVP, ONC E, Dosing Weight 91.818, kg, Priority: STAT, Start date: 01/17/17 16:43:00 CDT, Stop date: 01/17/17 16:43:00 CDT Inactive 01/17/2017 [facility] Ondansetron 4 mg, Route: IVP, Drug form: INJ, ONCE, Dosing Weight 91.818, kg, Priority: STAT, Start date: 01/17/17 16:43:00 CDT, Stop date: 01/17/17 16:43:00 CDT Inactive 01/17/2017 [facility] NS (Bolus) IV 1,000 mL, 1,000 ml/hr, Infuse Over: 1 hr, Route: IV, 1,000, Drug form: INJ, ONCE, Priority: STAT, Dosing Weight 91.818 kg, Start date: 01/17/17 13:56:00 CDT, Duration: 1 doses or times, Stop date: 13:56:00 CDT Inactive 01/17/2017 [facility] sodium chloride 0.9% 1000 ml INJ 984.8 m L + M.V.I.-12 10 mL Daily + folic acid IV 1 mg Daily + thia Notes: send to 2E Inactive 01/17/2017 [facility] Saline Flush 0.9% Notes: (Same as: BD Posiflush) Inactive 01/17/2017 [facility] Venofer + sodium chloride 0.9% INJ 90 mL Notes: Each 5ml contains 100mg elemental iron. Mix with NS Non-Formulary (Same as:Venofer) Administer IV only. MEDICATION WASTE Product Size: 100 mg Product Wasted: 0 mg Inactive 11/15/2016 [facility] Venofer + sodium chloride 0.9% INJ 90 mL Notes: Each 5ml contains 100mg elemental iron. Mix with NS Non-Formulary (Same as:Venofer) Administer IV only. MEDICATION WASTE Product Size: 100 mg Product Wasted: 0 mg Inactive 11/08/2016 [facility] Venofer + sodium chloride 0.9% INJ 90 mL Notes: Each 5ml contains 100mg elemental iron. Mix with NS Non-Formulary (Same as:Venofer) Administer IV only. MEDICATION WASTE Product Size: 100 mg Product Wasted: ___ mg No Longer Active 11/01/2016 [facility] Venofer + sodium chloride 0.9% INJ 90 mL Notes: Each 5ml contains 100mg elemental iron. Mix with NS Non-Formulary (Same as:Venofer) Administer IV only. MEDICATION WASTE Product Size: 100 mg Product Wasted: ___ mg Inactive 10/25/2016 [facility] Venofer + sodium chloride 0.9% INJ 90 mL Notes: Each 5ml contains 100mg elemental iron. Mix with NS Non-Formulary (Same as:Venofer) Administer IV only. MEDICATION WASTE Product Size: 100 mg Product Wasted: ___ mg Inactive 10/18/2016 [facility] amLODIPine 10 mg oral tablet 1 0 mg = 1 tab, PO, Daily, # 90 tab, 1 Refill(s), Pharmacy: [facility] [id number] Active 09/10/2016 [facility] Atenolol 50 MG Oral Tablet 50 mg = 1 tab, PO, BID, # 60 tab, 2 Refill(s), Pharmacy: [facility] [employer] [facility] [id number] Active 09/10/2016 [facility] Lurasidone Hydrochloride 80 MG Oral Tablet [Latuda] 80 mg, PO, Daily, 0 Refill(s) Active 09/10/2016 [facility] insulin detemir 100 units/mL subcutaneous solution 8 unit, SUB-Q, Bedtime, # 15 mL, 0 Refill(s) Active 09/10/2016 [facility] Insulin Aspart 100 unit/ml - (Starting CD) 8 unit, SUB- Q, TID-Before Meals, # 30 mL, 0 Refill(s), Pharmacy: [facility] [employer] [facility] [id number] Active 09/10/2016 [facility] Clonidine Hydrochloride 0.1 MG Oral Tablet 140, # 60 tab, 2 Refill(s), Pharmacy: [facility] [id number] Active 09/10/2016 [facility] Ondansetron 4 MG Oral Tablet [Zofran] 4 mg = 1 tab, PO, Q6H, PRN Nausea/Vomiting, X 8 day, # 30 tab, 0 Refill(s) Active 09/09/2016 [facility] Amlodipine Notes: (Same as: No rvasc) Inactive 09/09/2016 [facility] Insulin Glargine 100 UNT/ML Injectable S olution [Lantus] 8 unit, Route: SUB-Q, Bedtime, Dosing We ight 88.182, kg, Start date: 09/08/16 21:00:00 CDT, Duration: 30 day, Stop date: 10/07/16 21:00:00 CDT Inactive 09/09/2016 [facility] insulin detemir Notes: Same as Levemir Do not hold insulin without contacting prescriber WASTE: F/P - Black; E - [employer] "single patient use only" No Longer Active 09/09/2016 [facility] Clonidine Hydrochloride 0.1 MG Oral Tablet Notes: (Same As: Catapres) No Longer Active 09/08/2016 [facility] Humalog 8 unit, Route: SUB-Q, TID-Before Meals, Dosing Weight 88.182, kg, Start date: 09/08/16 16:30:00 CDT, Duration: 30 day, Stop date: 10/08/16 11:30:00 CDT Inactive 09/08/2016 [facility] insulin aspart Notes: Roll in palms of hands gently; Do not shake vigorously. (Same as: NovoLOG) "single patient use only" WASTE: F/P - Black; E - [employer] Trash [employer] Stable for 28 days at room temperature. Expires in days from Date No Longer Active 09/08/2016 [facility] Atenolol 50 MG Oral Tablet Not es: (Same As:Tenormin) No Longer Active 09/08/2016 [facility] Amlodipine Notes: (Same as: No rvasc) No Longer Active 09/08/2016 [facility] Losartan Notes: (Same as: Gerardo swanson) No Longer Active 09/08/2016 [facility] Latuda 80 mg, Route: PO, Drug form: TAB, Daily, Dosing Weight 88.182, kg, Start date: 09/08/16 9:00:00 CDT, Duration: 30 day, Stop date: 10/07/16 9:00:00 CDT No Longer Active 09/08/2016 [facility] Nurse pls bring pt's own med: Latuda to pharmacy Nurse pls bring pt's own med: Latuda to pharmacy, reminder, Drug form: MISC, Route: MISC, QSHIFT, 09/08/16 8:00:00 CDT, Duration: 30 day, Stop date: 10/08/16 0:00:00 CDT No Longer Active 09/08/2016 [facility] Protonix Notes: For IV push re constitute with 10 ml 0.9% sodium chloride and push over 2 minutes. (Same as: Protonix) No Longer Active 09/08/2016 [facility] Phenergan Notes: Do not give I V push. (Same as: Phenergan) No Longer Active 09/08/2016 [facility] zolpidem Notes: (Same As: Ambi en) No Longer Active 09/08/2016 [facility] zolpidem 10 mg, Route: PO, Jose g form: TAB, Bedtime, Dosing Weight 88.182, kg, PRN Sleep, Start date: 09/08/16 4:51:00 CDT, Duration: 30 day, Stop date: 10/08/16 4:50:00 CDT Inactive 09/08/2016 [facility] Insulin, Aspart, Human Notes: Roll in palms of hands gently; Do not shake vigorously. (Same as: NovoLOG) "single patient use only" WASTE: F/P - Black; E - [employer] Stable for 28 days at room temperature. Expires in days from Date No Longer Active 09/08/2016 [facility] Dextrose 50% Syringe 12.5 gm, 25 mL, Route: IVP, Drug Form: INJ, Dosing Weight 88.182, kg, PRN, PRN Blood Glucose Results, Start date: 09/08/16 4:49:00 CDT, Duration: 30 day, Stop date: 10/08/16 4:48:00 CDT No Longer Active 09/08/2016 [facility] Glucagon 1 mg, Route: IM, Drug form: PDR/INJ, PRN, Dosing Weight 88.182, kg, PRN Blood Glucose Results, Start date: 09/08/16 4:49:00 CDT, Duration: 30 day, Stop date: 10/08/16 4:48:00 CDT No Longer Active 09/08/2016 [facility] Sodium Chloride 0.154 MEQ/ML Injectable Solution 1,000 mL, Rate: 125 ml/hr, Infuse over: 8 hr, Route: IV, Dosing Weight 88.182 kg, Total Volume: 1,000, Start date: 09/08/16 4:47:00 CDT, Duration: 30 day, Stop date: 10/08/16 4:46:00 CDT No Longer Active 09/08/2016 [facility] Saline Flush 0.9% Notes: (Same as: BD Posiflush) No Longer Active 09/08/2016 [facility] Ondansetron Notes: (Same as: Jace kingsley) MEDICATION WASTE Product Size: 4 mg Product Wasted: ___ mg No Longer Active 09/08/2016 [facility] Morphine Notes: (Same as:MORPh ine Sulfate) No Longer Active 09/08/2016 [facility] Acetaminophen 325 MG / Hydrocodone Derian trate 5 MG Oral Tablet Notes: (Same as: Midway 325/5) Do not ex ceed 4gm/day of acetaminophen. No Longer Active 09/08/2016 [facility] Metoclopramide 10 mg, Route: I SLEEPING CAR PORTER, Drug form: INJ, ONCE, Dosing Weight 88.182, kg, Priority: STAT, Start date: 09/08/16 2:44:00 CDT, Stop date: 09/08/16 2:44:00 CDT Inactive 09/08/2016 [facility] Sodium Chloride 0.154 MEQ/ML Injectable Solution 1,000 mL, Infuse Over: 1 hr, Route: IV, ONCE, Priority: STAT, Dosing Weight 88.182 kg, Start date: 09/08/16 2:15:00 CDT, Duration: 1 doses or times, Stop date: 09/08/16 2:15:00 CDT Inactive 09/08/2016 [facility] Zofran 4 mg, Route: IVP, Drug form: INJ, ONCE, Dosing Weight 88.182, kg, Priority: STAT, Start date: 09/08/16 0:49:00 CDT, Stop date: 09/08/16 0:49:00 CDT Inactive 09/08/2016 [facility] Morphine 4 mg, Route: IVP, ONC E, Dosing Weight 88.182, kg, Priority: STAT, Start date: 09/08/16 0:49:00 CDT, Stop date: 09/08/16 0:49:00 CDT Inactive 09/08/2016 [facility] Protonix Notes: Tablet should not be chewed or crushed. (Same as: Protonix) No Longer Active 08/21/2016 [facility] Vitamin C Notes: (Same as: Vit fink C) No Longer Active 08/21/2016 [facility] ascorbic acid 500 mg oral tablet 500 mg = 1 tab, PO, Daily, # 30 tab, 0 Refill(s) Active 08/20/2016 [facility] Atenolol 25 MG Oral Tablet 50 mg = 2 tab, PO, Daily, # 30 tab, 0 Refill(s) Active 08/20/2016 [facility] ferrous sulfate 325 mg oral enteric coated tablet 325 mg = 1 tab, PO, TID, # 90 tab, 0 Refill(s) Active 08/20/2016 [facility] pantoprazole 40 mg oral enteric coated tablet 40 mg = 1 tab, PO, Before Dinner, # 30 tab, 0 Refill(s) Active 08/20/2016 [facility] thiamine 100 mg oral tablet 10 0 mg = 1 tab, PO, Daily, # 30 tab, 0 Refill(s) Inactive 08/20/2016 [facility] ferrous sulfate Notes: Give wi th food. "Do Not Crush" Inactive 08/20/2016 [facility] multivitamin with iron Notes: Same as Iron/C/B12/FA/SA Inactive 08/20/2016 [facility] Thiamine 100 mg, Route: PO, Dr ug form: TAB, Daily, Dosing Weight 91.364, kg, Start date: 08/20/16 9:00:00 CDT, Duration: 30 day, Stop date: 09/18/16 9:00:00 CDT No Longer Active 08/20/2016 [facility] Protonix Notes: For IV push re constitute with 10 ml 0.9% sodium chloride and push over 2 minutes. (Same as: Protonix) Inactive 08/20/2016 [facility] atenolol 25 mg oral tablet Not es: (Same As:Tenormin) No Longer Active 08/20/2016 [facility] amLODIPine Notes: (Same as: No rvasc) No Longer Active 08/20/2016 [facility] Sodium Chloride 0.154 MEQ/ML Injectable Solution 1,000 mL, Rate: 25 ml/hr, Infuse over: 40 hr, Route: IV, Dosing Weight 91.364 kg, Total Volume: 1,000, Start date: 08/19/16 14:44:00 CDT, Duration: 30 day, Stop date: 09/18/16 14:43:00 CDT Inactive 08/19/2016 [facility] Vasotec Notes: (Same as: Vasot ec-IV) No Longer Active 08/19/2016 [facility] Atenolol 25 MG Oral Tablet [Tenormin] Notes: (Same As:Tenormin) No Longer Active 08/18/2016 [facility] zolpidem Notes: (Same As: Ambi en) No Longer Active 08/18/2016 [facility] metFORMIN extended release Not es: (Same as: Glucophage XR) "Do Not Crush" No Longer Active 08/18/2016 [facility] Latuda 80 mg, Route: PO, Drug form: TAB, Daily, Dosing Weight 91.364, kg, Start date: 08/18/16 9:00:00 CDT, Duration: 30 day, Stop date: 09/16/16 9:00:00 CDT No Longer Active 08/18/2016 [facility] Losartan Notes: (Same as: Coza ar) No Longer Active 08/18/2016 [facility] Klonopin Notes: (Same As: Klon oPIN) No Longer Active 08/18/2016 [facility] Amlodipine Notes: (Same as: No rvasc) No Longer Active 08/18/2016 [facility] [facility] Insulin, Aspart, Human Notes: Roll in palms of hands gently; Do not shake vigorously. (Same as: NovoLOG) "single patient use only" WASTE: F/P - Black; E - Municipal Trash Bin Stable for 28 days at room temperature. Expires in days from Date No Longer Active 08/18/2016 [facility] Dextrose 50% Syringe 25 gm, 50 mL, Route: IVP, Drug Form: INJ, Dosing Weight 91.364, kg, PRN, PRN Blood Glucose Results, Start date: 08/18/16 8:40:00 CDT, Duration: 30 day, Stop date: 09/17/16 8:39:00 CDT No Longer Active 08/18/2016 [facility] Glucagon 1 mg, Route: IM, Drug form: PDR/INJ, PRN, Dosing Weight 91.364, kg, PRN Blood Glucose Results, Start date: 08/18/16 8:40:00 CDT, Duration: 30 day, Stop date: 09/17/16 8:39:00 CDT No Longer Active 08/18/2016 [facility] zolpidem 10 mg, Route: PO, Jose g form: TAB, Bedtime, Dosing Weight 91.364, kg, PRN Sleep, Start date: 08/18/16 8:38:00 CDT, Duration: 30 day, Stop date: 09/17/16 8:37:00 CDT Inactive 08/18/2016 [facility] Magnesium Sulfate Notes: WASTE : F/P - Sink; E - Municipal Trash Bin Inactive 08/18/2016 [facility] sodium chloride 0.9% 1000 ml INJ 1,000 mL 1,000 mL, Rate: 125 ml/hr, Infuse over: 8 hr, Route: IV, Dosing Weight 91.364 kg, Total Volume: 1,000, Start date: 08/18/16 1:58:00 CDT, Duration: 30 day, Stop date: 09/17/16 1:57:00 CDT No Longer Active 08/18/2016 [facility] Zofran Notes: (Same as: Zofran ) MEDICATION WASTE Product Size: 4 mg Product Wasted: ___ mg No Longer Active 08/18/2016 [facility] Phenergan Notes: Do not give I V push. (Same as: Phenergan) No Longer Active 08/18/2016 [facility] Morphine Notes: (Same as:MORPh ine Sulfate) No Longer Active 08/18/2016 [facility] Clonazepam 0.5 MG Oral Tablet [Klonopin] 0.5 mg = 1 tab, PO, BID, # 60 tab, 0 Refill(s) Active 08/18/2016 [facility] Morphine 4 mg, Route: IVP, ONC E, Dosing Weight 91.364, kg, Priority: STAT, Start date: 08/17/16 23:55:00 CDT, Stop date: 08/17/16 23:55:00 CDT Inactive 08/18/2016 [facility] Protonix 40 mg, Route: IVP, ON CE, Dosing Weight 91.364, kg, Priority: STAT, Start date: 08/17/16 21:54:00 CDT, Stop date: 08/17/16 21:54:00 CDT Inactive 08/18/2016 [facility] Sodium Chloride 0.154 MEQ/ML Injectable Solution 1,000 mL, Infuse Over: 1 hr, Route: IV, ONCE, Priority: STAT, Dosing Weight 91.364 kg, Start date: 08/17/16 21:54:00 CDT, Duration: 1 doses or times, Stop date: 08/17/16 21:54:00 CDT Inactive 08/18/2016 [facility] Promethazine 12.5 mg, Route: I VPB, ONCE, Dosing Weight 91.364, kg, Priority: STAT, Start date: 08/17/16 21:54:00 CDT, Stop date: 08/17/16 21:54:00 CDT Inactive 08/18/2016 [facility] Zofran 4 mg, Route: IVP, Drug form: INJ, ONCE, Dosing Weight 91.364, kg, Priority: STAT, Start date: 08/17/16 21:16:00 CDT, Stop date: 08/17/16 21:16:00 CDT Inactiv e 08/18/2016 [facility] Sodium Chloride 0.154 MEQ/ML Injectable Solution 1,000 mL, Infuse Over: 1 hr, Route: IV, ONCE, Priority: STAT, Dosing Weight 91.364 kg, Start date: 08/17/16 20:13:00 CDT, Duration: 1 doses or times, Stop date: 08/17/16 20:13:00 CDT Inactive 08/18/2016 [facility] Morphine Notes: (Same as:MORPh ine Sulfate) Inactive 08/18/2016 [facility] Sodium Chloride 0.154 MEQ/ML Injectable Solution 1,000 mL, 1,000 ml/hr, Infuse Over: 1 hr, Route: IV, 1,000, Drug form: INJ, ONCE, Priority: STAT, Dosing Weight 90.2 kg, Start date: 08/17/16 18:26:00 CDT, Duration: 1 doses or times, Stop date: 08/17/16 18:26:00 CDT Inactive 08/17/2016 [facility] Zofran Notes: (Same as: Zofran ) MEDICATION WASTE Product Size: 4 mg Product Wasted: ___ mg Inactive 08/17/2016 [facility] 24 HR venlafaxine 75 MG Extended Release Capsule [Effexor] 75 mg = 1 cap, PO, Daily, # 30 cap, 0 Refill(s) Active 06/20/2016 [facility] venlafaxine Notes: (Same As: E ffexor) Inactive 06/20/2016 [facility] latuda 80mg tab latuda 80mg ta b, 1 tab, Drug form: MISC, Route: PO, Daily, 06/20/16 9:00:00 CDT, Duration: 30 day, Stop date: 07/19/16 9:00:00 CDT Inactive 06/20/2016 [facility] Amlodipine Notes: (Same as: No rvasc) No Longer Active 06/20/2016 [facility] Clonidine Hydrochloride 0.1 MG Oral Tablet Notes: (Same As: Catapres) No Longer Active 06/20/2016 [facility] Latuda 80 mg, Route: PO, Daily , Dosing Weight 90.2, kg, Start date: 06/19/16 19:31:00 CDT, Duration: 30 day, Stop date: 07/19/16 9:00:00 CDT Inactive 06/20/2016 [facility] Tylenol Notes: Do not exceed 4 gm/day. (Same as: Tylenol) No Longer Active 06/19/2016 [facility] Protonix Notes: Tablet should not be chewed or crushed. (Same as: Protonix) No Longer Active 06/19/2016 [facility] Lorazepam Notes: (Same as: Gertrude hdez) Inactive 06/19/2016 [facility] Zofran Notes: (Same as: Zofran ) MEDICATION WASTE Product Size: 4 mg Product Wasted: ___ mg No Longer Active 06/19/2016 [facility] Lurasidone Hydrochloride 80 MG Oral Tablet [Latuda] 80 mg = 1 tab, PO, Daily, 0 Refill(s) Active 06/19/2016 [facility] Losartan Notes: (Same as: Gerardo swanson) No Longer Active 06/19/2016 [facility] Fluoxetine Route: PO, Drug for m: CAP, Daily, Dosing Weight 90.2, kg, Start date: 06/19/16 9:00:00 CDT, Duration: 30 day, Stop date: 07/18/16 9:00:00 CDT Inactive 06/19/2016 [facility] Benztropine Notes: (Same As: Barbra mcleod) No Longer Active 06/19/2016 [facility] pneumococcal capsular polysaccharide typ e 1 vaccine / pneumococcal capsular polysaccharide type 10A vaccine / pneumococcal capsular polysaccharide type 11A vaccine / pneumococcal capsular polysaccharide type 12F vaccine / pneumococcal capsular polysacchar Notes: (Same as: Pneumovax 23) Refrigerate Inactive 06/19/2016 [facility] influenza virus vaccine, inactivated Notes: (Same as: Fluzone Quadrivalent, Fluarix Quadrivalent) For 3 years of age and older (0.5 mL IM) Shake well before use Inactive 06/19/2016 [facility] venlafaxine Notes: (Same As: Candelaria ffexor) Inactive 06/19/2016 [facility] Omeprazole 40 mg, Route: PO, D rug form: DRC, Daily, Dosing Weight 90.2, kg, Start date: 06/19/16 9:00:00 CDT, Duration: 30 day, Stop date: 07/18/16 9:00:00 CDT Inactive 06/19/2016 [facility] metFORMIN extended release Not es: (Same as: Glucophage XR) "Do Not Crush" No Longer Active 06/19/2016 [facility] benztropine 2 mg oral tablet 1 /2 tablet, PO, BID, 0 Refill(s) Active 06/19/2016 [facility] amLODIPine 5 mg oral tablet 5 mg = 1 tab, PO, Bedtime, 0 Refill(s) Active 06/19/2016 [facility] losartan 100 mg oral tablet 10 0 mg = 1 tab, PO, Daily, 0 Refill(s) Active 06/19/2016 [facility] FLUoxetine 20 mg oral capsule 4, PO, Daily, 0 Refill(s) Inactive 06/19/2016 [facility] zolpidem 10 mg oral tablet 10 mg = 1 tab, PO, Bedtime, PRN as needed for sleep, 0 Refill(s) Active 06/19/2016 [facility] metFORMIN extended release 500 mg, PO, Daily, 0 Refill(s) Active 06/19/2016 [facility] venlafaxine 37.5 mg oral tablet, extended release 37.5 mg = 1 tab, PO, Daily, 0 Refill(s) No Longer Active 06/19/2016 [facility] Labetalol Notes: (Same as: Arie lawrence Trandate) Push over 2 minutes Give bolus over 2-3 minutes. Inactive 06/19/2016 [facility] Cardura Notes: (Same as: Maribel suresh) Inactive 06/19/2016 [facility] Hydralazine Notes: (Same as: A presoline) Push over 5 minutes Inactive 06/19/2016 [facility] Prazosin 2 mg, Route: PO, ONCE , Dosing Weight 81.818, kg, Start date: 06/19/16 2:11:00 CDT, Stop date: 06/19/16 2:11:00 CDT Inactive 06/19/2016 [facility] Heparin 40 unit/kg Bolus (Heparin Dosing Weight) Pharmacy To Manage, Route: IVP, PRN, Drug form: INJ, PRN, Heparin Protocol, Start date: 06/19/16 2:06:00 CDT Stop date: 07/19/16 2:05:00 CDT, 30 day Inactive 06/19/2016 [facility] heparin additive 25,000 unit [18 unit/kg /hr] + Premix Diluent Dextrose 5% 500 mL 500 mL, Rate: 29.45 ml/hr, Infuse over: 17 hr, Route: IV, Dosing Weight 81.818 kg, Total Volume: 500 mL, Start date: 06/19/16 2:06:00 CDT, Duration: 30 day, Stop date: 07/19/16 2:05:00 CDT Inactive 06/19/2016 [facility] Heparin - one time bolus for DVT/PE 5,000 unit, Route: IVP, Drug form: INJ, ONCE, Dosing Weight 81.818, kg, Priority: STAT, Start date: 06/19/16 2:06:00 CDT, Stop date: 06/19/16 2:06:00 CDT Inactive 06/19/2016 [facility] Heparin 80 unit/kg Bolus (Heparin Dosing Weight) Pharmacy To Manage, Route: IVP, PRN, Drug form: INJ, PRN, Heparin Protocol, Start date: 06/19/16 2:06:00 CDT Stop date: 07/19/16 2:05:00 CDT, 30 day Inactive 06/19/2016 [facility] Labetalol 20 mg, Route: IVP, D rug form: INJ, ONCE, Dosing Weight 81.818, kg, Priority: STAT, Start date: 06/19/16 1:54:00 CDT, Stop date: 06/19/16 1:54:00 CDT Inactive 06/19/2016 [facility] Lorazepam 1 mg, Route: IVP, Dr ug form: INJ, ONCE, Dosing Weight 81.818, kg, Priority: STAT, Start date: 06/19/16 1:54:00 CDT, Stop date: 06/19/16 1:54:00 CDT Inactive 06/19/2016 [facility] Hydralazine Notes: (Same as: A presoline) Push over 5 minutes No Longer Active 06/19/2016 [facility] Saline Flush 0.9% Notes: (Same as: BD Posiflush) No Longer Active 06/19/2016 [facility] Ondansetron 4 MG Oral Tablet [Zofran] 4 mg = 1 tab, PO, BID, X 5 day, # 10 tab, 0 Refill(s) Active 06/07/2016 [facility] tramadol hydrochloride 50 MG Oral Tablet [Ultram] 50 mg = 1 tab, PO, Q4H, PRN pain, X 3 day, # 20 tab, 0 Refill(s) Active 06/07/2016 [facility] Zofran Notes: (Same as: Zofran ) MEDICATION WASTE Product Size: 4 mg Product Wasted: ___ mg Inactive 06/07/2016 [facility] Morphine Notes: (Same as:MORPh ine Sulfate) Inactive 06/07/2016 [facility] omeprazole 40 mg oral delayed release capsule 40 mg = 1 cap, PO, Daily, # 30 cap, 1 Refill(s) Active 01/19/2016 [facility] promethazine 25 mg oral tablet 25 mg = 1 tab, PO, Q8H, PRN Nausea/Vomiting, X 10 day, # 30 tab, 1 Refill(s) Active 01/19/2016 [facility] GI cocktail 30 mL, Route: PO, Dosing Weight 100, kg, ONCE, STAT, Start date: 01/19/16 6:27:00 CDT, Stop date: 01/19/16 6:27:00 CDT Inactive 01/19/2016 [facility] Zofran 8 mg, Route: IV, ONCE, Dosing Weight 100, kg, Start date: 01/19/16 6:20:00 CDT, Stop date: 01/19/16 6:20:00 CDT Inactive 01/19/2016 [facility] sodium chloride 0.9% INJ 250 mL 250 mL, Rate: Composite Layup Worker for use with blood product administration., Dosing Weight 100, kg, Route: IV, Total Volume: 250, Priority: Routine, Start Date: 01/19/16 2:13:00 CDT, Duration: 1 day, Stop date: 01/20/16 2:12:00 CDT, Replace Every: 24 hr Inactive 01/19/2016 [facility] Morphine 4 mg, Route: IVP, ONC E, Dosing Weight 100, kg, Priority: STAT, Start date: 01/19/16 2:13:00 CDT, Stop date: 01/19/16 2:13:00 CDT Inactive 01/19/2016 [facility] Ondansetron 4 mg, Route: IVP, ONCE, Dosing Weight 100, kg, Priority: STAT, Start date: 01/19/16 2:13:00 CDT, Stop date: 01/19/16 2:13:00 CDT Inactive 01/19/2016 [facility] pantoprazole 80 mg, Route: IVP , ONCE, Dosing Weight 100, kg, For IV push reconstitute with 10 ml 0.9% sodium chloride and push over at least 3 minutes, Priority: STAT, Start date: 01/19/16 2:13:00 CDT, Stop date: 01/19/16 2:13:00 CDT Inactive 01/19/2016 [facility] Sodium Chloride 0.154 MEQ/ML Injectable Solution 1,000 mL, 2,000 ml/hr, Infuse Over: 30 minutes, Route: IV, ONCE, Priority: STAT, Dosing Weight 100 kg, Start date: 01/19/16 2:13:00 CDT, Duration: 1 doses or times, Stop date: 01/19/16 2:13:00 CDT Inactive 01/19/2016 [facility] Saline Flush 0.9% Notes: (Same as: BD Posiflush) Inactive 01/19/2016 [facility] Ketorolac Tromethamine 10 MG Oral Tablet 10 mg = 1 tab, PO, Q6H, X 5 day, # 20 tab, 0 Refill(s) Active 09/08/2014 [facility] Ketorolac 4 days MEDICA TION WASTE Product Size: 30 mg Product Wasted: _15__ mg Inactive 09/08/2014 [facility] Zofran 4 mg, Route: IVP, Drug form: INJ, ONCE, Dosing Weight 109.091, kg, Priority: STAT, Start date: 09/08/14 16:35:00, Stop date: 09/08/14 16:35:00 Inactive 09/08/2014 [facility] Morphine 4 mg, Route: IVP, Jose g form: INJ, ONCE, Dosing Weight 109.091, kg, Priority: STAT, Start date: 09/08/14 16:35:00, Stop date: 09/08/14 16:35:00 Inactive 09/08/2014 [facility] Saline Flush 0.9% Notes: (Same as: BD Posiflush) Inactive 09/08/2014 [facility] Allergies, Adverse Reactions, Alerts Substance Category Reaction Severity Reaction type Status Date Reported Comments Source lisinopril Assertion Drug allergy Active [facility] Immunizations Immunization Date Given Site Status Last Updated Comments Source pneumococcal 23-valent vaccine 06/19/2016 Right deltoid completed [facility] influenza virus vaccine, inactivated 06/19/2016 Left deltoid completed [facility] Results Order Name Results Value Reference Range Date Interpretation Comments Source SPECIAL CHEMISTRY Hgb A1C 11.7 <=5.6 % 12/06/2018 [facility] BLOOD BANK RESULTS ABO/Rh A POS 12/06/2018 [facility] BLOOD BANK RESULTS Antibody Scrn Negative (12/06/18 12:44 PM) 12/06/2018 [facility] ELECTROLYTES AGAP 10.6 10.0 - 20.0 12/06/2018 [facility] ELECTROLYTES B/C Ratio 15 6 - 25 12/06/2018 [facility] ELECTROLYTES Globulin 3.7 2.7 - 4.2 12/06/2018 [facility] ELECTROLYTES A/G Ratio 0.9 0.7 - 1.6 12/06/2018 [facility] ELECTROLYTES Glucose Lvl 291 70 - 99 12/06/2018 [facility] ELECTROLYTES BUN 19 7 - 22 12/06/2018 [facility] ELECTROLYTES Creatinine Lvl 1.2 9 0.50 - 1.40 12/06/2018 [facility] ELECTROLYTES Sodium Lvl 139 135 - 145 12/06/2018 [facility] ELECTROLYTES Potassium Lvl 4.6 3.5 - 5.1 12/06/2018 [facility] ELECTROLYTES Chloride Lvl 105 95 - 109 12/06/2018 [facility] ELECTROLYTES CO2 28 24 - 32 12/06/2018 [facility] ELECTROLYTES Calcium Lvl 9.0 8.5 - 10.5 12/06/2018 [facility] ELECTROLYTES Total Protein 7.1 6.4 - 8.4 12/06/2018 [facility] ELECTROLYTES Albumin Lvl 3.4 3.5 - 5.0 12/06/2018 [facility] ELECTROLYTES ALT 25 0 - 65 12/06/2018 [facility] ELECTROLYTES AST 11 0 - 37 12/06/2018 [facility] ELECTROLYTES Alk Phos 113 39 - 136 12/06/2018 [facility] ELECTROLYTES Bili Total 0.4 0.2 - 1.3 12/06/2018 [facility] ELECTROLYTES eGFR 49 12/06/2018 Result Comment: [...] should be multiplied by the estimated BMI. [facility] HEMATOLOGY WBC 4.4 3.7 - 10.4 12/06/2018 [facility] HEMATOLOGY RBC 3.74 4.20 - 5.40 12/06/2018 [facility] HEMATOLOGY Hgb 11.2 12.0 - 16.0 12/06/2018 [facility] HEMATOLOGY Hct 34.1 36.0 - 48.0 12/06/2018 [facility] MCV 91.2 80.0 - 98.0 12/06/2018 [facility] MCH 30.0 27.0 - 31.0 12/06/2018 [facility] MCHC 32.9 32.0 - 36.0 12/06/2018 [facility] HEMATOLOGY RDW 17.6 11.5 - 14.5 12/06/2018 [facility] Platelet 183 133 - 450 12/06/2018 [facility] HEMATOLOGY MPV 8.8 7.4 - 10.4 12/06/2018 [facility] HEMATOLOGY PT 11.8 12.0 - 14.7 12/06/2018 [facility] HEMATOLOGY INR 0.88 0.85 - 1.17 12/06/2018 [facility] HEMATOLOGY PTT 31.5 22.9 - 35.8 12/06/2018 [facility] HEMATOLOGY Segs 65.1 45.0 - 75.0 12/06/2018 [facility] Lymphocytes 27.4 20.0 - 40.0 12/06/2018 [facility] Monocytes 6.0 2.0 - 12.0 12/06/2018 [facility] HEMATOLOGY Eosinophils 1.0 0.0 - 4.0 12/06/2018 [facility] HEMATOLOGY Basophils 0.5 0.0 - 1.0 12/06/2018 [facility] Neutrophils # 2.9 1.5 - 8.1 12/06/2018 [facility] Lymphocytes # 1.2 1.0 - 5.5 12/06/2018 [facility] Monocytes # 0.3 0.0 - 0.8 12/06/2018 [facility] URINE AND STOOL UA Bili Negative *NA* (02/22/18 3:31 PM) Negative 02/22/2018 [facility] URINE AND STOOL UA Nitrite Negative (02/22/18 3:31 PM) Negative 02/22/2018 [facility] URINE AND STOOL UA Blood Negative (02/22/18 3:31 PM) Negative 02/22/2018 [facility] URINE AND STOOL UA Leuk Est Negative (02/22/18 3:31 PM) Negative 02/22/2018 [facility] URINE AND STOOL UA Urobilinogen <=1.0 mg/dL 0.1 - 1.0 02/22/2018 [facility] URINE AND STOOL UA Sq Epi Occasional /LPF Few /LPF 02/22/2018 [facility] URINE AND STOOL UA WBC 1 0 - 5 02/22/2018 [facility] URINE AND STOOL UA RBC 1 0 - 2 02/22/2018 [facility] URINE AND STOOL UA Color Ltyellow 02/22/2018 [facility] URINE AND STOOL UA Turbidity Clear (02/22/18 3:31 PM) Clear 02/22/2018 [facility] URINE AND STOOL UA Spec Grav 1.026 <=1.030 02/22/2018 [facility] URINE AND STOOL UA Glucose 500 mg/dL Negative mg/dL 02/22/2018 [facility] URINE AND STOOL UA pH 5.0 5.0 - 8.0 02/22/2018 [facility] URINE AND STOOL UA Ketones Negative *NA* (02/22/18 3:31 PM) Negative 02/22/2018 [facility] URINE AND STOOL UA Protein 100 mg/dL Negative mg/dL 02/22/2018 [facility] CARDIAC ENZYMES Troponin-I <0.02 0.00 - 0.40 02/22/2018 [facility] CARDIAC ENZYMES BNP 65 <=100 pg/mL 02/22/2018 [facility] CHEM PANEL Lipase Lvl 359 73 - 393 02/22/2018 [facility] CHEM PANEL Globulin 4.2 2.7 - 4.2 02/22/2018 [facility] CHEM PANEL B/C Ratio 20 6 - 25 02/22/2018 [facility] CHEM PANEL AGAP 17.4 10.0 - 20.0 02/22/2018 [facility] CHEM PANEL A/G Ratio 0.8 0.7 - 1.6 02/22/2018 [facility] CHEM PANEL eGFR 48 02/22/2018 Result [...] should be multiplied by the estimated BMI. [facility] CHEM PANEL Alk Phos 116 39 - 136 02/22/2018 [facility] CHEM PANEL Bili Total 0.5 0.2 - 1.3 02/22/2018 [facility] CHEM PANEL AST 25 0 - 37 02/22/2018 [facility] CHEM PANEL ALT 47 0 - 65 02/22/2018 [facility] CHEM PANEL Albumin Lvl 3.2 3.5 - 5.0 02/22/2018 [facility] CHEM PANEL Total Protein 7.4 6.4 - 8.4 02/22/2018 [facility] CHEM PANEL Calcium Lvl 9.0 8.5 - 10.5 02/22/2018 [facility] CHEM PANEL Chloride Lvl 101 95 - 109 02/22/2018 [facility] CHEM PANEL CO2 18 24 - 32 02/22/2018 [facility] CHEM PANEL Potassium Lvl 4.4 3.5 - 5.1 02/22/2018 [facility] CHEM PANEL Creatinine Lvl 1.32 0.50 - 1.40 02/22/2018 [facility] CHEM PANEL Sodium Lvl 132 135 - 145 02/22/2018 [facility] CHEM PANEL BUN 27 7 - 22 02/22/2018 [facility] CHEM PANEL Glucose Lvl 379 70 - 99 02/22/2018 [facility] CHEM PANEL VITAMIN B1 (THIAMINE) WHO LE BLOOD 107.0 66.5 - 200.0 02/22/2018 Result Comment:
This t est was developed and its performance characteristics
determined by [facility]. It has not been cleared or
approved by the Food and Drug Administration .
Performed At: [facility]
[address] [place] [address] [id number]
Bryan Lunsford MD Ph:[phone] [facility] Basophils 0.3 0.0 - 1.0 02/22/2018 [facility] Neutrophils # 7.1 1.5 - 8.1 02/22/2018 [facility] HEMATOLOGY Lymphocytes # 1.4 1.0 - 5.5 02/22/2018 [facility] HEMATOLOGY Lymphocytes 15.0 20.0 - 40.0 02/22/2018 [facility] HEMATOLOGY Monocytes 5.9 2.0 - 12.0 02/22/2018 [facility] Monocytes # 0.5 0.0 - 0.8 02/22/2018 [facility] HEMATOLOGY Eosinophils 0.2 0.0 - 4.0 02/22/2018 [facility] RBC Morph Keisha l (02/22/18 2:21 PM) 02/22/2018 [facility] HEMATOLOGY Segs 78.6 45.0 - 75.0 02/22/2018 [facility] HEMATOLOGY Plt Morph See N ote 2 (02/22/18 2:21 PM) 02/22/2018 Result Comment: Due to occassional clumps, the actual count may be slightly higher. 02/22/2018 19:19 iko [facility] HEMATOLOGY Hct 38.7 36.0 - 48.0 02/22/2018 [facility] MCH 30.8 27.0 - 31.0 02/22/2018 [facility] HEMATOLOGY MCV 90.4 80.0 - 98.0 02/22/2018 [facility] MCHC 34.1 32.0 - 36.0 02/22/2018 [facility] RDW 16.8 11.5 - 14.5 02/22/2018 [facility] Platelet 149 133 - 450 02/22/2018 [facility] MPV 9.3 7.4 - 10.4 02/22/2018 [facility] WBC 9.0 3.7 - 10.4 02/22/2018 [facility] Hgb 13.2 12.0 - 16.0 02/22/2018 [facility] RBC 4.27 4.20 - 5.40 02/22/2018 [facility] VIRAL - SEROLOGY Influ B Negative (01/17/17 4:52 PM) Negative 01/17/2017 [facility] VIRAL - SEROLOGY Influ A Negative (01/17/17 4:52 PM) Negative 01/17/2017 [facility] BLOOD BANK RESULTS ABO/Rh A POS 01/17/2017 [facility] BLOOD BANK RESULTS Antibody Scrn Negative (01/17/17 4:21 PM) 01/17/2017 [facility] CHEM PANEL Lipase Lvl 144 73 - 393 01/17/2017 [facility] CHEM PANEL Amylase Lvl 110 25 - 115 01/17/2017 [facility] CHEM PANEL A/G Ratio 0.9 0.7 - 1.6 01/17/2017 [facility] CHEM PANEL Globulin 4.7 2.7 - 4.2 01/17/2017 [facility] CHEM PANEL AGAP 12.9 10.0 - 20.0 01/17/2017 [facility] CHEM PANEL B/C Ratio 13 6 - 25 01/17/2017 [facility] CHEM PANEL Total Protein 9.0 6.4 - 8.4 01/17/2017 [facility] CHEM PANEL Calcium Lvl 9.4 8.5 - 10.5 01/17/2017 [facility] CHEM PANEL CO2 24 24 - [...] Glucose Lvl 64 70 - 99 01/17/2017 [facility] CHEM PANEL Creatinine Lvl 1.20 0.50 - 1.40 01/17/2017 [facility] CHEM PANEL BUN 16 7 - 22 01/17/2017 [facility] CHEM PANEL Sodium Lvl 138 135 - 145 01/17/2017 [facility] HEMATOLOGY Segs-Bands # 4.9 1.5 - 8.1 01/17/2017 [facility] HEMATOLOGY Basophils 0.5 0.0 - 1.0 01/17/2017 [facility] HEMATOLOGY Monocytes 5.2 2.0 - 12.0 01/17/2017 [facility] HEMATOLOGY Eosinophils 0.9 0.0 - 4.0 01/17/2017 [facility] HEMATOLOGY Lymphocytes 28.1 20.0 - 40.0 01/17/2017 [facility] HEMATOLOGY Segs 65.3 45.0 - 75.0 01/17/2017 [facility] HEMATOLOGY Lymphocytes # 2.1 1.0 - 5.5 01/17/2017 [facility] HEMATOLOGY Monocytes # 0.4 0.0 - 0.8 01/17/2017 [facility] HEMATOLOGY Eosinophils # 0.1 0.0 - 0.5 01/17/2017 [facility] HEMATOLOGY RBC Morph Keisha l (01/17/17 4:21 PM) 01/17/2017 [facility] HEMATOLOGY Plt Morph Keisha l (01/17/17 4:21 PM) 01/17/2017 [facility] MCH 27.1 27.0 - 31.0 01/17/2017 [facility] MCHC 32.6 32.0 - 36.0 01/17/2017 [facility] MPV 9.2 7.4 - 10.4 01/17/2017 [facility] MCV 83.2 80.0 - 98.0 01/17/2017 [facility] Hct 41.6 36.0 - 48.0 01/17/2017 [facility] Hgb 13.6 12.0 - 16.0 01/17/2017 [facility] HEMATOLOGY Platelet 169 133 - 450 01/17/2017 [facility] RDW 17.1 11.5 - 14.5 01/17/2017 [facility] RBC 5.00 4.20 - 5.40 01/17/2017 [facility] HEMATOLOGY WBC 7.6 3.7 - 10.4 01/17/2017 [facility] URINE AND STOOL UA Blood Negative (01/17/17 4:21 PM) Negative 01/17/2017 [facility] URINE AND STOOL UA Nitrite Negative (01/17/17 4:21 PM) Negative 01/17/2017 [facility] URINE AND STOOL UA Leuk Est Negative (01/17/17 4:21 PM) Negative 01/17/2017 [facility] URINE AND STOOL UA Sq Epi Occasional /LPF Few /LPF 01/17/2017 [facility] URINE AND STOOL UA RBC 2 0 - 2 01/17/2017 [facility] URINE AND STOOL UA Bacteria Occasional /HPF None Seen /HPF 01/17/[address] [facility] [address] URINE AND STOOL UA Color Ltyellow 01/17/2017 [facility] URINE AND STOOL UA WBC 2 0 - 5 01/17/2017 [facility] URINE AND STOOL UA Glucose Negative mg/dL Negative mg/dL 01/17/[address] [facility] [address] URINE AND STOOL UA Ketones Negative mg/dL Negative mg/dL 01/17/2017 [facility] URINE AND STOOL UA Bili Negative *NA* (01/17/17 4:21 PM) Negative 01/17/2017 [facility] URINE AND STOOL UA Urobilinogen <=1.0 mg/dL 0.1 - 1.0 01/17/2017 [facility] URINE AND STOOL UA pH 7.0 5.0 - 8.0 01/17/2017 [facility] URINE AND STOOL UA Protein Negative mg/dL Negative mg/dL 01/17/2017 [facility] URINE AND STOOL UA Turbidity Clear (01/17/17 4:21 PM) Clear 01/17/2017 [facility] URINE AND STOOL UA Spec Grav 1.006 <=1.030 01/17/2017 [facility] URINE CHEM U Preg Negat adan (01/17/17 4:21 PM) Negative 01/17/2017 [facility] CHEM PANEL Creatinine Lvl 2.00 0.50 - 1.40 09/10/2016 [facility] CHEM PANEL BUN 32 7 - 22 09/10/2016 [facility] CHEM PANEL Sodium Lvl 139 135 - 145 09/10/2016 [facility] CHEM PANEL Chloride Lvl 107 95 - 109 09/10/2016 [facility] CHEM PANEL Potassium Lvl 4.1 3.5 - 5.1 09/10/2016 [facility] CHEM PANEL Glucose Lvl 151 70 - 99 09/10/2016 [facility] CHEM PANEL AGAP 14.1 10.0 - 20.0 09/10/2016 [facility] CHEM PANEL CO2 22 24 - 32 09/10/2016 [facility] CHEM PANEL Calcium Lvl 8.7 8.5 - 10.5 09/10/2016 [facility] CHEM PANEL eGFR 29 09/10/2016 Result [...] should be multiplied by the estimated BMI. [facility] HEMATOLOGY MPV 9.9 7.4 - 10.4 09/10/2016 [facility] RBC 4.28 4.20 - 5.40 09/10/2016 [facility] WBC 6.4 3.7 - 10.4 09/10/2016 [facility] Hgb 8.8 12.0 - 16.0 09/10/2016 [facility] HEMATOLOGY Hct 29.1 36.0 - 48.0 09/10/2016 [facility] MCV 67.9 80.0 - 98.0 09/10/2016 [facility] MCH 20.6 27.0 - 31.0 09/10/2016 [facility] Platelet 182 133 - 450 09/10/2016 [facility] MCHC 30.3 32.0 - 36.0 09/10/2016 [facility] RDW 18.6 11.5 - 14.5 09/10/2016 [facility] URINE AND STOOL UA Bili Negative *NA* (09/10/16 3:06 AM) Negative 09/10/2016 [facility] URINE AND STOOL UA WBC 5 0 - 5 09/10/2016 [facility] URINE AND STOOL UA Leuk Est Trace *ABN* (09/10/16 3:06 AM) Negative 09/10/2016 [facility] URINE AND STOOL UA Sq Epi Few /LPF Few /LPF 09/10/2016 [facility] URINE AND STOOL UA Blood Negative (09/10/16 3:06 AM) Negative 09/10/2016 [facility] URINE AND STOOL UA Nitrite Negative (09/10/16 3:06 AM) Negative 09/10/2016 [facility] URINE AND STOOL UA RBC <1 0 - 2 09/10/2016 [facility] URINE AND STOOL UA Bacteria Occasional /HPF None Seen /HPF 09/10/2016 [facility] URINE AND STOOL UA Urobilinogen <=1.0 mg/dL 0.1 - 1.0 09/10/2016 [facility] URINE AND STOOL UA Color Ltyellow 09/10/2016 [facility] URINE AND STOOL UA Protein Negative mg/dL Negative mg/dL 09/10/2016 [facility] URINE AND STOOL UA Spec Grav 1.009 <=1.030 09/10/2016 [facility] URINE AND STOOL UA pH 5.0 5.0 - 8.0 09/10/2016 [facility] URINE AND STOOL UA Glucose Negative mg/dL Negative mg/dL 09/10/[address] [facility] [address] URINE AND STOOL UA Ketones Negative mg/dL Negative mg/dL 09/10/[address] [facility] [address] URINE AND STOOL UA Turbidity Clear (09/10/16 3:06 AM) Clear 09/10/2016 [facility] URINE CHEM U Eos None Seen (09/10/16 3:06 AM) None Seen 09/10/2016 [facility] URINE CHEM U Urea 472 09/10/2016 [facility] URINE CHEM U Sodium 48 09/10/2016 [facility] URINE CHEM U Microalb 21.5 09/10/2016 [facility] URINE CHEM U Creatinine 120.00 09/10/2016 [facility] URINE CHEM U Alb/Crea 17.9 <=30.0 mcg/mg creat 09/10/2016 [facility] CHEM PANEL eGFR 25 09/09/2016 Result [...] should be multiplied by the estimated BMI. [facility] CHEM PANEL CO2 22 24 - 32 09/09/2016 [facility] CHEM PANEL Creatinine Lvl 2.30 0.50 - 1.40 09/09/2016 [facility] CHEM PANEL Potassium Lvl 5.1 3.5 - 5.1 09/09/2016 [facility] CHEM PANEL Chloride Lvl 106 95 - 109 09/09/2016 [facility] CHEM PANEL AGAP 14.1 10.0 - 20.0 09/09/2016 [facility] CHEM PANEL Calcium Lvl 8.2 8.5 - 10.5 09/09/2016 [facility] CHEM PANEL BUN 29 7 - 22 09/09/2016 [facility] CHEM PANEL Sodium Lvl 137 135 - 145 09/09/2016 [facility] CHEM PANEL Glucose Lvl 354 70 - 99 09/09/2016 [facility] HEMATOLOGY MPV 9.6 7.4 - 10.4 09/09/2016 [facility] HEMATOLOGY Platelet 187 133 - 450 09/09/2016 [facility] MCHC 30.5 32.0 - 36.0 09/09/2016 [facility] HEMATOLOGY RDW 18.5 11.5 - 14.5 09/09/2016 [facility] Hgb 7.4 12.0 - 16.0 09/09/2016 [facility] RBC 3.59 4.20 - 5.40 09/09/2016 [facility] MCH 20.7 27.0 - 31.0 09/09/2016 [facility] Hct 24.4 36.0 - 48.0 09/09/2016 [facility] MCV 67.9 80.0 - 98.0 09/09/2016 [facility] WBC 6.8 3.7 - 10.4 09/09/2016 [facility] ELECTROLYTES AGAP 11.5 10.0 - 20.0 09/09/2016 [facility] ELECTROLYTES Glucose Lvl 175 70 - 99 09/09/2016 [facility] ELECTROLYTES Sodium Lvl 140 135 - 145 09/09/2016 [facility] ELECTROLYTES Creatinine Lvl 1.9 0 0.50 - 1.40 09/09/2016 [facility] ELECTROLYTES BUN 25 7 - 22 09/09/2016 [facility] ELECTROLYTES Chloride Lvl 108 95 - 109 09/09/2016 [facility] ELECTROLYTES Potassium Lvl 4.5 3.5 - 5.1 09/09/2016 [facility] ELECTROLYTES eGFR 31 09/09/2016 Result Comment: [...] should be multiplied by the estimated BMI. [facility] ELECTROLYTES CO2 25 24 - 32 09/09/2016 [facility] ELECTROLYTES Calcium Lvl 8.7 8.5 - 10.5 09/09/2016 [facility] ELECTROLYTES Sodium Lvl 140 135 - 145 09/09/2016 [facility] ELECTROLYTES Creatinine Lvl 1.9 0 0.50 - 1.40 09/09/2016 [facility] ELECTROLYTES eGFR 31 09/09/2016 Result Comment: [...] should be multiplied by the estimated BMI. [facility] ELECTROLYTES AGAP 13.5 10.0 - 20.0 09/09/2016 [facility] ELECTROLYTES CO2 25 24 - 32 09/09/2016 [facility] ELECTROLYTES Chloride Lvl 106 95 - 109 09/09/2016 [facility] ELECTROLYTES Calcium Lvl 8.5 8.5 - 10.5 09/09/2016 [facility] ELECTROLYTES Potassium Lvl 4.5 3.5 - 5.1 09/09/2016 [facility] ELECTROLYTES Glucose Lvl 173 70 - 99 09/09/2016 [facility] ELECTROLYTES BUN 25 7 - 22 09/09/2016 [facility] HEMATOLOGY Microcyte 3+ *NA* (09/09/16 3:11 AM) None Seen 09/09/2016 [facility] HEMATOLOGY Monocytes # 0.5 0.0 - 0.8 09/09/2016 [facility] HEMATOLOGY Lymphocytes # 1.0 1.0 - 5.5 09/09/2016 [facility] HEMATOLOGY Segs-Bands # 5.6 1.5 - 8.1 09/09/2016 [facility] HEMATOLOGY Basophils 0.4 0.0 - 1.0 09/09/2016 [facility] HEMATOLOGY Eosinophils 0.2 0.0 - 4.0 09/09/2016 [facility] HEMATOLOGY Lymphocytes 14.5 20.0 - 40.0 09/09/2016 [facility] HEMATOLOGY Monocytes 7.1 2.0 - 12.0 09/09/2016 [facility] HEMATOLOGY Segs 77.8 45.0 - 75.0 09/09/2016 [facility] Platelet 187 133 - 450 09/09/2016 [facility] MPV 9.4 7.4 - 10.4 09/09/2016 [facility] HEMATOLOGY MCV 67.5 80.0 - 98.0 09/09/2016 [facility] RDW 18.2 11.5 - 14.5 09/09/2016 [facility] MCH 20.7 27.0 - 31.0 09/09/2016 [facility] MCHC 30.6 32.0 - 36.0 09/09/2016 [facility] HEMATOLOGY RBC 3.95 4.20 - 5.40 09/09/2016 [facility] Hct 26.6 36.0 - 48.0 09/09/2016 [facility] Hgb 8.2 12.0 - 16.0 09/09/2016 [facility] WBC 7.2 3.7 - 10.4 09/09/2016 [facility] CHEM PANEL Globulin 4.2 2.7 - 4.2 09/08/2016 [facility] CHEM PANEL A/G Ratio 1.0 0.7 - 1.6 09/08/2016 [facility] CHEM PANEL B/C Ratio 16 6 - 25 09/08/2016 [facility] CHEM PANEL Alk Phos 123 39 - 136 09/08/2016 [facility] CHEM PANEL AST 9 0 - 37 09/08/2016 [facility] CHEM PANEL Bili Total 0.5 0.2 - 1.3 09/08/2016 [facility] CHEM PANEL Albumin Lvl 4.3 3.5 - 5.0 09/08/2016 [facility] CHEM PANEL Total Protein 8.5 6.4 - 8.4 09/08/2016 [facility] CHEM PANEL ALT 13 0 - 65 09/08/2016 [facility] CHEM PANEL Lipase Lvl 96 73 - 393 09/08/2016 [facility] ENDOCRINOLOGY S Preg Ne gative *NA* (09/08/16 1:07 AM) Negative 09/08/2016 [facility] HEMATOLOGY Microcyte 3+ *NA* (09/08/16 1:07 AM) None Seen 09/08/2016 [facility] HEMATOLOGY Monocytes # 0.1 0.0 - 0.8 09/08/2016 [facility] HEMATOLOGY Lymphocytes # 0.5 1.0 - 5.5 09/08/2016 [facility] HEMATOLOGY Monocytes 1.5 2.0 - 12.0 09/08/2016 [facility] HEMATOLOGY Lymphocytes 6.2 20.0 - 40.0 09/08/2016 [facility] HEMATOLOGY Segs-Bands # 7.4 1.5 - 8.1 09/08/2016 [facility] HEMATOLOGY Basophils 0.2 0.0 - 1.0 09/08/2016 [facility] HEMATOLOGY Segs 92.1 45.0 - 75.0 09/08/2016 [facility] URINE AND STOOL UA Leuk Est Negative (09/08/16 1:07 AM) Negative 09/08/2016 [facility] URINE AND STOOL UA Nitrite Negative (09/08/16 1:07 AM) Negative 09/08/2016 [facility] URINE AND STOOL UA Blood Small *ABN* (09/08/16 1:07 AM) Negative 09/08/2016 [facility] URINE AND STOOL UA Bili Negative *NA* (09/08/16 1:07 AM) Negative 09/08/2016 [facility] URINE AND STOOL UA Sq Epi Occasional /LPF Few /LPF 09/08/2016 [facility] URINE AND STOOL UA Glucose 500 mg/dL Negative mg/dL 09/08/2016 [facility] URINE AND STOOL UA Protein 30 mg/dL Negative mg/dL 09/08/2016 [facility] URINE AND STOOL UA pH 5.0 5.0 - 8.0 09/08/2016 [facility] URINE AND STOOL UA Ketones 20 mg/dL Negative mg/dL 09/08/2016 [facility] URINE AND STOOL UA Spec Grav 1.012 <=1.030 09/08/2016 [facility] URINE AND STOOL UA Turbidity Clear (09/08/16 1:07 AM) Clear 09/08/2016 [facility] URINE AND STOOL UA Urobilinogen <=1.0 mg/dL 0.1 - 1.0 09/08/2016 [facility] URINE AND STOOL UA Hyal Cast 1 0 - 2 09/08/2016 [facility] URINE AND STOOL UA RBC 3 0 - 2 09/08/2016 [facility] URINE AND STOOL UA WBC 2 0 - 5 09/08/2016 [facility] URINE AND STOOL UA Color Ltyellow 09/08/2016 [facility] CHEM PANEL eGFR 70 08/20/2016 Result [...] should be multiplied by the estimated BMI. [facility] CHEM PANEL ALT 179 0 - 65 08/20/2016 [facility] CHEM PANEL Albumin Lvl 3.4 3.5 - 5.0 08/20/2016 [facility] CHEM PANEL Total Protein 6.6 6.4 - 8.4 08/20/2016 [facility] CHEM PANEL Calcium Lvl 8.5 8.5 - 10.5 08/20/2016 [facility] CHEM PANEL CO2 22 24 - 32 08/20/2016 [facility] CHEM PANEL Chloride Lvl 108 95 - 109 08/20/2016 [facility] CHEM PANEL Alk Phos 184 39 - 136 08/20/2016 [facility] CHEM PANEL AST 81 0 - 37 08/20/2016 [facility] CHEM PANEL Bili Total 0.6 0.2 - 1.3 08/20/2016 [facility] CHEM PANEL Sodium Lvl 141 135 - 145 08/20/2016 [facility] CHEM PANEL BUN 10 7 - 22 08/20/2016 [facility] CHEM PANEL Glucose Lvl 153 70 - 99 08/20/2016 [facility] CHEM PANEL Potassium Lvl 4.2 3.5 - 5.1 08/20/2016 [facility] CHEM PANEL Creatinine Lvl 0.97 0.50 - 1.40 08/20/2016 [facility] CHEM PANEL A/G Ratio 1.1 0.7 - 1.6 08/20/2016 [facility] CHEM PANEL Globulin 3.2 2.7 - 4.2 08/20/2016 [facility] CHEM PANEL B/C Ratio 10 6 - 25 08/20/2016 [facility] CHEM PANEL AGAP 15.2 10.0 - 20.0 08/20/2016 [facility] HEMATOLOGY MCHC 30.3 32.0 - 36.0 08/20/2016 [facility] HEMATOLOGY MCH 20.3 27.0 - 31.0 08/20/2016 [facility] HEMATOLOGY MCV 67.2 80.0 - 98.0 08/20/2016 [facility] HEMATOLOGY Hct 27.7 36.0 - 48.0 08/20/2016 [facility] HEMATOLOGY Hgb 8.4 12.0 - 16.0 08/20/2016 [facility] HEMATOLOGY RBC 4.13 4.20 - 5.40 08/20/2016 [facility] HEMATOLOGY MPV 9.5 7.4 - 10.4 08/20/2016 [facility] HEMATOLOGY Platelet 208 133 - 450 08/20/2016 [facility] HEMATOLOGY RDW 17.7 11.5 - 14.5 08/20/2016 [facility] HEMATOLOGY WBC 6.5 3.7 - 10.4 08/20/2016 [facility] HEMATOLOGY INR 1.05 0.85 - 1.17 08/20/2016 [facility] HEMATOLOGY PTT 28.8 22.9 - 35.8 08/20/2016 [facility] HEMATOLOGY PT 13.9 12.0 - 14.7 08/20/2016 [facility] HEMATOLOGY Hct 27.7 36.0 - 48.0 08/20/2016 [facility] HEMATOLOGY Hgb 8.4 12.0 - 16.0 08/20/2016 [facility] HEMATOLOGY WBC 6.5 3.7 - 10.4 08/20/2016 [facility] HEMATOLOGY RBC 4.13 4.20 - 5.40 08/20/2016 [facility] HEMATOLOGY Platelet 208 133 - 450 08/20/2016 [facility] HEMATOLOGY MPV 9.5 7.4 - 10.4 08/20/2016 [facility] HEMATOLOGY MCHC 30.3 32.0 - 36.0 08/20/2016 [facility] HEMATOLOGY MCV 67.2 80.0 - 98.0 08/20/2016 [facility] HEMATOLOGY RDW 17.7 11.5 - 14.5 08/20/2016 [facility] HEMATOLOGY MCH 20.3 27.0 - 31.0 08/20/2016 [facility] HEMATOLOGY Segs-Bands # 4.4 1.5 - 8.1 08/20/2016 [facility] HEMATOLOGY Basophils 0.6 0.0 - 1.0 08/20/2016 [facility] HEMATOLOGY Eosinophils 0.7 0.0 - 4.0 08/20/2016 [facility] HEMATOLOGY Monocytes 8.1 2.0 - 12.0 08/20/2016 [facility] HEMATOLOGY Lymphocytes 23.2 20.0 - 40.0 08/20/2016 [facility] HEMATOLOGY Microcyte 3+ *NA* (08/20/16 4:47 AM) None Seen 08/20/2016 [facility] HEMATOLOGY Monocytes # 0.5 0.0 - 0.8 08/20/2016 [facility] HEMATOLOGY Lymphocytes # 1.5 1.0 - 5.5 08/20/2016 [facility] HEMATOLOGY Segs 67.4 45.0 - 75.0 08/20/2016 [facility] ANEMIA STUDY Vitamin B12 Lvl 259 254 - 1320 08/19/2016 [facility] ANEMIA STUDY Ferritin Lvl 6 5 - 204 08/19/2016 [facility] ANEMIA STUDY Folate Lvl 11.3 >=3.0 ng/mL 08/19/2016 [facility] ANEMIA STUDY UIBC 446 110 - 370 08/19/2016 [facility] ANEMIA STUDY % Satur Fe 4 12 - 57 08/19/2016 [facility] ANEMIA STUDY TIBC 463 228 - 428 08/19/2016 [facility] ANEMIA STUDY Iron 17 30 - 160 08/19/2016 [facility] CHEM PANEL VITAMIN B1 (THIAMINE) WHO LE BLOOD 79.6 66.5 - 200.0 08/19/2016 Result Comment: Performed At : [facility]
[address], [place] [id number]
Carlin Feliz MD Ph:[phone] [facility] ANEMIA STUDY UIBC 378 110 - 370 08/19/2016 [facility] ANEMIA STUDY TIBC 398 228 - 428 08/19/2016 [facility] ANEMIA STUDY % Satur Fe 5 12 - 57 08/19/2016 [facility] ANEMIA STUDY Iron 20 30 - 160 08/19/2016 [facility] CHEM PANEL eGFR 68 08/19/2016 Result [...] should be multiplied by the estimated BMI. [facility] CHEM PANEL Bili Total 0.9 0.2 - 1.3 08/19/2016 [facility] CHEM PANEL AST 325 0 - 37 08/19/2016 [facility] CHEM PANEL Alk Phos 188 39 - 136 08/19/2016 [facility] CHEM PANEL AGAP 12.0 10.0 - 20.0 08/19/2016 [facility] CHEM PANEL Calcium Lvl 8.6 8.5 - 10.5 08/19/2016 [facility] CHEM PANEL B/C Ratio 13 6 - 25 08/19/2016 [facility] CHEM PANEL Potassium Lvl 4.0 3.5 - 5.1 08/19/2016 [facility] CHEM PANEL Glucose Lvl 137 70 - 99 08/19/2016 [facility] CHEM PANEL BUN 13 7 - 22 08/19/2016 [facility] CHEM PANEL CO2 23 24 - 32 08/19/2016 [facility] CHEM PANEL Chloride Lvl 108 95 - 109 08/19/2016 [facility] CHEM PANEL Creatinine Lvl 0.99 0.50 - 1.40 08/19/2016 [facility] CHEM PANEL Sodium Lvl 139 135 - 145 08/19/2016 [facility] CHEM PANEL Globulin 3.2 2.7 - 4.2 08/19/2016 [facility] CHEM PANEL Total Protein 6.6 6.4 - 8.4 08/19/2016 [facility] CHEM PANEL Albumin Lvl 3.4 3.5 - 5.0 08/19/2016 [facility] CHEM PANEL ALT 280 0 - 65 08/19/2016 [facility] CHEM PANEL A/G Ratio 1.1 0.7 - 1.6 08/19/2016 [facility] HEMATOLOGY Microcyte 3+ *NA* (08/19/16 5:41 [...] HEMATOLOGY Segs 63.5 45.0 - 75.0 08/19/2016 [facility] HEMATOLOGY Hgb 7.9 12.0 - 16.0 08/19/2016 [facility] MCH 20.8 27.0 - 31.0 08/19/2016 [facility] HEMATOLOGY MCV 67.5 80.0 - 98.0 08/19/2016 [facility] HEMATOLOGY MCHC 30.8 32.0 - 36.0 08/19/2016 [facility] HEMATOLOGY Hct 25.8 36.0 - 48.0 08/19/2016 [facility] HEMATOLOGY MPV 9.0 7.4 - 10.4 08/19/2016 [facility] HEMATOLOGY Platelet 216 133 - 450 08/19/2016 [facility] HEMATOLOGY RDW 18.2 11.5 - 14.5 08/19/2016 [facility] HEMATOLOGY RBC 3.82 4.20 - 5.40 08/19/2016 [facility] HEMATOLOGY WBC 5.6 3.7 - 10.4 08/19/2016 [facility] HEMATOLOGY PTT 28.3 22.9 - 35.8 08/19/2016 [facility] HEMATOLOGY PT 14.8 12.0 - 14.7 08/19/2016 [facility] HEMATOLOGY INR 1.14 0.85 - 1.17 08/19/2016 [facility] IMMUNOLOGY Hep A IgM Negat adan *NA* (08/19/16 5:41 AM) Negative 08/19/2016 [facility] IMMUNOLOGY Hep B Core IgM Negat adan *NA* (08/19/16 5:41 AM) Negative 08/19/2016 [facility] IMMUNOLOGY Hep C Ab Negat adan *NA* (08/19/16 5:41 AM) 08/19/2016 [facility] IMMUNOLOGY Hep Bs Ag Negat adan *NA* (08/19/16 5:41 AM) Negative 08/19/2016 [facility] URINE AND STOOL UA WBC 1 0 - 5 08/18/2016 [facility] URINE AND STOOL UA Urobilinogen 4.0 0.1 - 1.0 08/18/2016 [facility] URINE AND STOOL UA Leuk Est Negative (08/18/16 8:45 AM) Negative 08/18/2016 [facility] URINE AND STOOL UA RBC <1 0 - 2 08/18/2016 [facility] URINE AND STOOL UA Sq Epi Occasional /LPF Few /LPF 08/18/2016 [facility] URINE AND STOOL UA Blood Negative (08/18/16 8:45 AM) Negative 08/18/2016 [facility] URINE AND STOOL UA Nitrite Negative (08/18/16 8:45 AM) Negative 08/18/2016 [facility] URINE AND STOOL UA Bili Negative *NA* (08/18/16 8:45 AM) Negative 08/18/2016 [facility] URINE AND STOOL UA Ketones Negative mg/dL Negative mg/dL 08/18/[address] [facility] [address] URINE AND STOOL UA Turbidity Clear (08/18/16 8:45 AM) Clear 08/18/2016 [facility] URINE AND STOOL UA Spec Grav 1.014 <=1.030 08/18/2016 [facility] URINE AND STOOL UA Protein Negative mg/dL Negative mg/dL 08/18/2016 [facility] URINE AND STOOL UA pH 5.0 5.0 - 8.0 08/18/2016 [facility] URINE AND STOOL UA Glucose Negative mg/dL Negative mg/dL 08/18/2016 [facility] URINE AND STOOL UA Color Yellow *NA* (08/18/16 8:45 AM) Yellow 08/18/2016 [facility] CHEM PANEL Magnesium Lvl 1.3 1.8 - 2.4 08/18/2016 [facility] CHEM PANEL ALT 161 0 - 65 08/18/2016 [facility] CHEM PANEL Total Protein 6.7 6.4 - 8.4 08/18/2016 [facility] CHEM PANEL A/G Ratio 1.0 0.7 - 1.6 08/18/2016 [facility] CHEM PANEL B/C Ratio 14 6 - 25 08/18/2016 [facility] CHEM PANEL Globulin 3.3 2.7 - 4.2 08/18/2016 [facility] CHEM PANEL Albumin Lvl 3.4 3.5 - 5.0 08/18/2016 [facility] CHEM PANEL eGFR 49 08/18/2016 Result [...] should be multiplied by the estimated BMI. [facility] CHEM PANEL Alk Phos 159 39 - 136 08/18/2016 [facility] CHEM PANEL AST 490 0 - 37 08/18/2016 [facility] CHEM PANEL Bili Total 0.8 0.2 - 1.3 08/18/2016 [facility] CHEM PANEL Calcium Lvl 8.3 8.5 - 10.5 08/18/2016 [facility] CHEM PANEL Glucose Lvl 197 70 - 99 08/18/2016 [facility] CHEM PANEL Creatinine Lvl 1.30 0.50 - 1.40 08/18/2016 [facility] CHEM PANEL BUN 18 7 - 22 08/18/2016 [facility] CHEM PANEL Sodium Lvl 140 135 - 145 08/18/2016 [facility] CHEM PANEL Potassium Lvl 4.1 3.5 - 5.1 08/18/2016 [facility] CHEM PANEL Chloride Lvl 110 95 - 109 08/18/2016 [facility] CHEM PANEL CO2 20 24 - 32 08/18/2016 [facility] CHEM PANEL AGAP 14.1 10.0 - 20.0 08/18/2016 [facility] HEMATOLOGY Eosinophils 0.1 0.0 - 4.0 08/18/2016 [facility] HEMATOLOGY Segs-Bands # 6.1 1.5 - 8.1 08/18/2016 [facility] HEMATOLOGY Lymphocytes # 1.2 1.0 - 5.5 08/18/2016 [facility] HEMATOLOGY Monocytes # 0.6 0.0 - 0.8 08/18/2016 [facility] HEMATOLOGY Basophils 0.4 0.0 - 1.0 08/18/2016 [facility] HEMATOLOGY Segs 77.4 45.0 - 75.0 08/18/2016 [facility] Lymphocytes 14.8 20.0 - 40.0 08/18/2016 [facility] Monocytes 7.3 2.0 - 12.0 08/18/2016 [facility] HEMATOLOGY Microcyte 3+ *NA* (08/18/16 4:34 AM) None Seen 08/18/2016 [facility] CHEM PANEL Lipase Lvl 123 73 - 393 08/18/2016 [facility] RBC Morph See N ote 1 (08/17/16 7:21 PM) 08/18/2016 Result Comment: microcytosis [facility] Plt Morph Keisha l (08/17/16 7:21 PM) 08/18/2016 [facility] Basophils # 0.1 0.0 - 0.2 08/18/2016 [facility] URINE AND STOOL UA Glucose 50 mg/dL Negative mg/dL 08/18/2016 [facility] URINE AND STOOL UA Ketones Trace mg/dL Negative mg/dL 08/18/2016 [facility] URINE AND STOOL UA Hyal Cast [...] UA pH 5.0 5.0 - 8.0 08/18/2016 [facility] URINE AND STOOL UA Spec Grav 1.026 <=1.030 08/18/2016 [facility] URINE AND STOOL UA Bili Negative *NA* (08/17/16 7:21 PM) Negative 08/18/2016 [facility] URINE AND STOOL UA Leuk Est Negative (08/17/16 7:21 PM) Negative 08/18/2016 [facility] URINE AND STOOL UA Nitrite Negative (08/17/16 7:21 PM) Negative 08/18/2016 [facility] URINE AND STOOL UA Protein 100 mg/dL Negative mg/dL 08/18/2016 [facility] URINE AND STOOL UA Turbidity Slight *ABN* (08/17/16 7:21 PM) Clear 08/18/2016 [facility] URINE AND STOOL UA Color Yellow *NA* (08/17/16 7:21 PM) Yellow 08/18/2016 [facility] URINE CHEM U Preg Negat adan (08/17/16 7:21 PM) Negative 08/18/2016 [facility] HEMATOLOGY Monocytes # 0.5 0.0 - 0.8 06/19/2016 [facility] HEMATOLOGY Basophils # 0.1 0.0 - 0.2 06/19/2016 [facility] Microcyte 3+ *NA* (06/19/16 7:45 AM) None Seen 06/19/2016 [facility] Basophils 0.9 0.0 - 1.0 06/19/2016 [facility] HEMATOLOGY Segs-Bands # 5.0 1.5 - 8.1 06/19/2016 [facility] Lymphocytes # 1.7 1.0 - 5.5 06/19/2016 [facility] Monocytes 7.0 2.0 - 12.0 06/19/2016 [facility] HEMATOLOGY Eosinophils 0.6 0.0 - 4.0 06/19/2016 [facility] Lymphocytes 22.8 20.0 - 40.0 06/19/2016 [facility] Segs 68.7 45.0 - 75.0 06/19/2016 [facility] WBC 7.3 3.7 - 10.4 06/19/2016 [facility] RBC 4.19 4.20 - 5.40 06/19/2016 [facility] Hgb 8.4 12.0 - 16.0 06/19/2016 [facility] MCH 20.1 27.0 - 31.0 06/19/2016 [facility] MCHC 30.7 32.0 - 36.0 06/19/2016 [facility] RDW 20.1 11.5 - 14.5 06/19/2016 [facility] Hct 27.4 36.0 - 48.0 06/19/2016 [facility] MCV 65.3 80.0 - 98.0 06/19/2016 [facility] HEMATOLOGY MPV 9.1 7.4 - 10.4 06/19/2016 [facility] HEMATOLOGY Platelet 202 133 - 450 06/19/2016 [facility] CHEM PANEL Ammonia 15.0 <=45.0 uMol/L 06/19/2016 [facility] TOXICOLOGY Salicylate Lvl <1.7 0.0 - 30.0 06/19/2016 [facility] TOXICOLOGY Ethanol Lvl <3 06/19/2016 [facility] TOXICOLOGY Etoh (%) <0.003 06/19/2016 [facility] TOXICOLOGY Acetaminoph Lvl <2 (06/19/16 12:50 AM) 10 - 20 06/19/2016 [facility] URINE AND STOOL UA Color Ltyellow 06/19/2016 [facility] URINE AND STOOL UA Ketones Negative mg/dL Negative mg/dL 06/19/2016 [facility] URINE AND STOOL UA Urobilinogen 2.0 0.1 - 1.0 06/19/2016 [facility] URINE AND STOOL UA Bili Negative *NA* (06/19/16 12:50 AM) Negative 06/19/2016 [facility] URINE AND STOOL UA Blood Negative (06/19/16 12:50 AM) Negative 06/19/2016 [facility] URINE AND STOOL UA WBC 1 0 - 5 06/19/2016 [facility] URINE AND STOOL UA RBC <1 0 - 2 06/19/2016 [facility] URINE AND STOOL UA Bacteria Occasional /HPF None Seen /HPF 06/19/2016 [facility] URINE AND STOOL UA Nitrite Negative (06/19/16 12:50 AM) Negative 06/19/2016 [facility] URINE AND STOOL UA Leuk Est Negative (06/19/16 12:50 AM) Negative 06/19/2016 [facility] URINE AND STOOL UA Sq Epi Few /LPF Few /LPF 06/19/2016 [facility] URINE AND STOOL UA Glucose Negative mg/dL Negative mg/dL 06/19/[address] [facility] [address] URINE AND STOOL UA pH 5.0 5.0 - 8.0 06/19/2016 [facility] URINE AND STOOL UA Protein Negative mg/dL Negative mg/dL 06/19/2016 [facility] URINE AND STOOL UA Turbidity Clear (06/19/16 12:50 AM) Clear 06/19/2016 [facility] URINE AND STOOL UA Spec Grav 1.013 <=1.030 06/19/2016 [facility] CARDIAC ENZYMES CK MB 1.4 0.5 - 3.6 06/19/2016 [facility] CARDIAC ENZYMES Troponin-I <0.02 0.00 - 0.40 06/19/2016 [facility] CARDIAC ENZYMES Total CK 85 12 - 191 06/19/2016 [facility] CARDIAC ENZYMES BNP 9 <=100 pg/mL 06/19/2016 [facility] CARDIAC ENZYMES CK MB Index 1.6 0.0 - 2.5 06/19/2016 [facility] CHEM PANEL eGFR 54 06/19/2016 Result [...] should be multiplied by the estimated BMI. [facility] CHEM PANEL Alk Phos 137 39 - 136 06/19/2016 [facility] CHEM PANEL B/C Ratio 18 6 - 25 06/19/2016 [facility] CHEM PANEL Bili Total 0.3 0.2 - 1.3 06/19/2016 [facility] CHEM PANEL AST 14 0 - 37 06/19/2016 [facility] CHEM PANEL Total Protein 7.7 6.4 - 8.4 06/19/2016 [facility] CHEM PANEL AGAP 14.2 10.0 - 20.0 06/19/2016 [facility] CHEM PANEL Albumin Lvl 4.0 3.5 - 5.0 06/19/2016 [facility] CHEM PANEL Globulin 3.7 2.7 - 4.2 06/19/2016 [facility] CHEM PANEL A/G Ratio 1.1 0.7 - 1.6 06/19/2016 [facility] CHEM PANEL Chloride Lvl 105 95 - 109 06/19/2016 [facility] CHEM PANEL ALT 20 0 - 65 06/19/2016 [facility] CHEM PANEL Calcium Lvl 8.6 8.5 - 10.5 06/19/2016 [facility] CHEM PANEL CO2 25 24 - 32 06/19/2016 [facility] CHEM PANEL BUN 21 7 - 22 06/19/2016 [facility] CHEM PANEL Sodium Lvl 140 135 - 145 06/19/2016 [facility] CHEM PANEL Creatinine Lvl 1.20 0.50 - 1.40 06/19/2016 [facility] CHEM PANEL Potassium Lvl 4.2 3.5 - 5.1 06/19/2016 [facility] CHEM PANEL Glucose Lvl 147 70 - 99 06/19/2016 [facility] HEMATOLOGY Platelet 193 133 - 450 06/19/2016 [facility] HEMATOLOGY MPV 9.4 7.4 - 10.4 06/19/2016 [facility] HEMATOLOGY MCHC 30.4 32.0 - 36.0 06/19/2016 [facility] HEMATOLOGY RDW 20.2 11.5 - 14.5 06/19/2016 [facility] Hct 29.8 36.0 - 48.0 06/19/2016 [facility] HEMATOLOGY MCV 66.1 80.0 - 98.0 06/19/2016 [facility] MCH 20.1 27.0 - 31.0 06/19/2016 [facility] HEMATOLOGY WBC 8.4 3.7 - 10.4 06/19/2016 [facility] HEMATOLOGY RBC 4.51 4.20 - 5.40 06/19/2016 [facility] HEMATOLOGY Hgb 9.1 12.0 - 16.0 06/19/2016 [facility] Microcyte 3+ *NA* (06/19/16 12:18 AM) None Seen 06/19/2016 [facility] HEMATOLOGY Lymphocytes # 1.6 1.0 - 5.5 06/19/2016 [facility] HEMATOLOGY Segs-Bands # 6.1 1.5 - 8.1 06/19/2016 [facility] HEMATOLOGY Eosinophils # 0.1 0.0 - 0.5 06/19/2016 [facility] HEMATOLOGY Monocytes # 0.6 0.0 - 0.8 06/19/2016 [facility] HEMATOLOGY Monocytes 7.6 2.0 - 12.0 06/19/2016 [facility] HEMATOLOGY Basophils 0.3 0.0 - 1.0 06/19/2016 [facility] HEMATOLOGY Eosinophils 0.8 0.0 - 4.0 06/19/2016 [facility] HEMATOLOGY Lymphocytes 18.5 20.0 - 40.0 06/19/2016 [facility] HEMATOLOGY Segs 72.8 45.0 - 75.0 06/19/2016 [facility] CHEM PANEL eGFR 54 06/07/2016 Result [...] should be multiplied by the estimated BMI. [facility] CHEM PANEL Glucose Lvl 313 70 - 99 06/07/2016 [facility] CHEM PANEL BUN 21 7 - 22 06/07/2016 [facility] CHEM PANEL Creatinine Lvl 1.20 0.50 - 1.40 06/07/2016 [facility] CHEM PANEL Calcium Lvl 8.3 8.5 - 10.5 06/07/2016 [facility] CHEM PANEL CO2 22 24 - 32 06/07/2016 [facility] CHEM PANEL Chloride Lvl 105 95 - 109 06/07/2016 [facility] CHEM PANEL Sodium Lvl 137 135 - 145 06/07/2016 [facility] CHEM PANEL Potassium Lvl 4.1 3.5 - 5.1 06/07/2016 [facility] CHEM PANEL AGAP 14.1 10.0 - 20.0 06/07/2016 [facility] HEMATOLOGY MCHC 30.6 32.0 - 36.0 06/07/2016 [facility] MCH 20.1 27.0 - 31.0 06/07/2016 [facility] HEMATOLOGY MCV 65.7 80.0 - 98.0 06/07/2016 [facility] RDW 19.8 11.5 - 14.5 06/07/2016 [facility] Hct 25.1 36.0 - 48.0 06/07/2016 [facility] MPV 9.4 7.4 - 10.4 06/07/2016 [facility] HEMATOLOGY Platelet 190 133 - 450 06/07/2016 [facility] HEMATOLOGY WBC 6.3 3.7 - 10.4 06/07/2016 [facility] HEMATOLOGY Hgb 7.7 12.0 - 16.0 06/07/2016 [facility] HEMATOLOGY RBC 3.82 4.20 - 5.40 06/07/2016 [facility] Microcyte 3+ *NA* (06/07/16 12:52 PM) None Seen 06/07/2016 [facility] HEMATOLOGY Plt Morph Keisha l (06/07/16 12:52 PM) 06/07/2016 [facility] HEMATOLOGY Segs 68.2 45.0 - 75.0 06/07/2016 [facility] HEMATOLOGY Lymphocytes 24.6 20.0 - 40.0 06/07/2016 [facility] Monocytes 6.1 2.0 - 12.0 06/07/2016 [facility] Eosinophils 0.5 0.0 - 4.0 06/07/2016 [facility] Segs-Bands # 4.0 1.5 - 8.1 06/07/2016 [facility] Monocytes # 0.4 0.0 - 0.8 06/07/2016 [facility] Lymphocytes # 1.4 1.0 - 5.5 06/07/2016 [facility] Hypochrom 1+ (06/07/16 12:52 PM) None Seen 06/07/2016 [facility] URINE AND STOOL UA Urobilinogen 2.0 0.1 - 1.0 06/07/2016 [facility] URINE AND STOOL UA Nitrite Negative (06/07/16 12:52 PM) Negative 06/07/2016 [facility] URINE AND STOOL UA Leuk Est Negative (06/07/16 12:52 PM) Negative 06/07/2016 [facility] URINE AND STOOL UA WBC 2 0 - 5 06/07/2016 [facility] URINE AND STOOL UA Spec Grav 1.018 <=1.030 06/07/2016 [facility] URINE AND STOOL UA pH 6.0 5.0 - 8.0 06/07/2016 [facility] URINE AND STOOL UA Protein 30 mg/dL Negative mg/dL 06/07/2016 [facility] URINE AND STOOL UA Glucose 500 mg/dL Negative mg/dL 06/07/2016 [facility] URINE AND STOOL UA Ketones Negative mg/dL Negative mg/dL 06/07/2016 [facility] URINE AND STOOL UA Bili Negative *NA* (06/07/16 12:52 PM) Negative 06/07/2016 [facility] URINE AND STOOL UA Blood Negative (06/07/16 12:52 PM) Negative 06/07/2016 [facility] URINE AND STOOL UA Sq Epi Occasional /LPF Few /LPF 06/07/2016 [facility] URINE AND STOOL UA RBC 1 0 - 2 06/07/2016 [facility] URINE AND STOOL UA Color Yellow *NA* (06/07/16 12:52 PM) Yellow 06/07/2016 [facility] URINE AND STOOL UA Turbidity Clear (06/07/16 12:52 PM) Clear 06/07/2016 [facility] URINE CHEM U Preg Negat adan (06/07/16 12:52 PM) Negative 06/07/2016 [facility] BLOOD BANK RESULTS ABO/Rh A POS 01/19/2016 [facility] BLOOD BANK RESULTS Antibody Scrn Negative (01/19/16 2:55 AM) 01/19/2016 [facility] CARDIAC ENZYMES CK MB <0.5 0.5 - 3.6 01/19/2016 [facility] CARDIAC ENZYMES Troponin-I <0.02 0.00 - 0.40 01/19/2016 [facility] CARDIAC ENZYMES Total CK 44 12 - 191 01/19/2016 [facility] CARDIAC ENZYMES CK MB Index <1.1 0.0 - 2.5 01/19/2016 [facility] CHEM PANEL Lactic Acid Lvl 1.4 0.5 - 2.2 01/19/2016 [facility] CHEM PANEL Amylase Lvl 106 25 - 115 01/19/2016 [facility] CHEM PANEL Lipase Lvl 82 73 - 393 01/19/2016 [facility] CHEM PANEL eGFR 45 01/19/2016 Result [...] should be multiplied by the estimated BMI. [facility] CHEM PANEL AGAP 12.1 10.0 - [...] Sodium Lvl 131 135 - 145 01/19/2016 [facility] CHEM PANEL Creatinine Lvl 1.40 0.50 - 1.40 01/19/2016 [facility] CHEM PANEL BUN 20 7 - 22 01/19/2016 [facility] CHEM PANEL Glucose Lvl 291 70 - 99 01/19/2016 [facility] CHEM PANEL A/G Ratio 1.0 0.7 - 1.6 01/19/2016 [facility] CHEM PANEL Globulin 4.4 2.7 - 4.2 01/19/2016 [facility] CHEM PANEL B/C Ratio 14 6 - 25 01/19/2016 [facility] CHEM PANEL Albumin Lvl 4.4 3.5 - 5.0 01/19/2016 [facility] CHEM PANEL Calcium Lvl 9.2 8.5 - 10.5 01/19/2016 [facility] CHEM PANEL Chloride Lvl 97 95 - 109 01/19/2016 [facility] CHEM PANEL Total Protein 8.8 6.4 - 8.4 01/19/2016 [facility] CHEM PANEL CO2 26 24 - 32 01/19/2016 [facility] ENDOCRINOLOGY S Preg Ne gative *NA* (01/19/16 2:55 AM) Negative 01/19/2016 [facility] HEMATOLOGY MCH 18.9 27.0 - 31.0 01/19/2016 [facility] HEMATOLOGY Platelet 238 133 - 450 01/19/2016 [facility] HEMATOLOGY MPV 9.4 7.4 - 10.4 01/19/2016 [facility] HEMATOLOGY MCHC 30.3 32.0 - 36.0 01/19/2016 [facility] HEMATOLOGY RDW 18.8 11.5 - 14.5 01/19/2016 [facility] HEMATOLOGY RBC 5.46 4.20 - 5.40 01/19/2016 [facility] HEMATOLOGY Hgb 10.3 12.0 - 16.0 01/19/2016 [facility] HEMATOLOGY Hct 34.1 36.0 - 48.0 01/19/2016 [facility] HEMATOLOGY MCV 62.5 80.0 - 98.0 01/19/2016 [facility] HEMATOLOGY WBC 7.3 3.7 - 10.4 01/19/2016 [facility] HEMATOLOGY PT 13.5 12.0 - 14.7 01/19/2016 [facility] INR 1.01 0.85 - 1.17 01/19/2016 [facility] Hypochrom 1+ (01/19/16 2:55 AM) None Seen 01/19/2016 [facility] Microcyte 3+ *NA* (01/19/16 2:55 AM) None Seen 01/19/2016 [facility] Monocytes # 0.6 0.0 - 0.8 01/19/2016 [facility] HEMATOLOGY Segs 67.7 45.0 - 75.0 01/19/2016 [facility] Plt Morph Keisha l (01/19/16 2:55 AM) 01/19/2016 [facility] Segs-Bands # 5.0 1.5 - 8.1 01/19/2016 [facility] HEMATOLOGY Basophils 0.5 0.0 - 1.0 01/19/2016 [facility] Eosinophils 0.4 0.0 - 4.0 01/19/2016 [facility] Monocytes 7.5 2.0 - 12.0 01/19/2016 [facility] Lymphocytes 23.9 20.0 - 40.0 01/19/2016 [facility] Lymphocytes # 1.8 1.0 - 5.5 01/19/2016 [facility] URINE AND STOOL UA Urobilinogen <=1.0 mg/dL 0.1 - 1.0 01/19/2016 [facility] URINE AND STOOL UA Ketones 20 mg/dL Negative mg/dL 01/19/2016 [facility] URINE AND STOOL UA Bili Negative *NA* (01/19/16 2:55 AM) Negative 01/19/2016 [facility] URINE AND STOOL UA Glucose 500 mg/dL Negative mg/dL 01/19/2016 [facility] URINE AND STOOL UA Protein 100 mg/dL Negative mg/dL 01/19/2016 [facility] URINE AND STOOL UA Spec Grav 1.024 <=1.030 01/19/2016 [facility] URINE AND STOOL UA pH 5.0 5.0 - 8.0 01/19/2016 [facility] URINE AND STOOL UA Color Yellow *NA* (01/19/16 2:55 AM) Yellow 01/19/2016 [facility] URINE AND STOOL UA Turbidity Clear (01/19/16 2:55 AM) Clear 01/19/2016 [facility] URINE AND STOOL UA Mucus Few /LPF None Seen /LPF 01/19/2016 [facility] URINE AND STOOL UA Bacteria Occasional /HPF None Seen /HPF 01/19/[address] [facility] [address] URINE AND STOOL UA [...] Urobilinogen <=1.0 mg/dL 0.1 - 1.0 09/08/[address] [facility] [address] URINE AND STOOL UA Ketones Negative mg/dL Negative mg/dL 09/08/[address] [facility] [address] URINE AND STOOL UA [...] UA Glucose 150 mg/dL Negative mg/dL 09/08/2014 [facility] URINE AND STOOL UA Spec Grav 1.020 <=1.030 09/08/2014 [facility] URINE AND STOOL UA Turbidity Clear (09/08/14 5:50 PM) Clear 09/08/2014 [facility] URINE AND STOOL UA Protein Negative mg/dL Negative mg/dL 09/08/[address] [facility] [address] URINE CHEM U Preg Negat adan (09/08/14 5:50 PM) Negative 09/08/2014 [facility] CHEM PANEL Lipase Lvl 87 73 - 393 09/08/2014 [facility] CHEM PANEL eGFR 50 09/08/2014 <sup>1</sup>Result [...] should be multiplied by the estimated BMI. [facility] CHEM PANEL Glucose Lvl 158 70 - 99 09/08/2014 <sup>2</sup>Interpretive Data: Adult ref erence range values reflect the clinical guidelines
of the [employer]. [facility] CHEM PANEL AST 19 0 - 37 09/08/2014 [facility] CHEM PANEL BUN 22 7 - 22 09/08/2014 [facility] CHEM PANEL Total Protein 7.3 6.4 - 8.4 09/08/2014 [facility] CHEM PANEL Creatinine Lvl 1.3 0.5 - 1.4 09/08/2014 [facility] CHEM PANEL CO2 25 24 - 32 09/08/2014 [facility] CHEM PANEL ALT 42 0 - 65 09/08/2014 [facility] CHEM PANEL Albumin Lvl 3.6 3.5 - 5.0 09/08/2014 [facility] CHEM PANEL Alk Phos 213 39 - 136 09/08/2014 [facility] CHEM PANEL Bili Total 0.2 0.2 - 1.3 09/08/2014 [facility] CHEM PANEL Potassium Lvl 4.1 3.5 - 5.1 09/08/2014 [facility] CHEM PANEL Sodium Lvl 139 135 - 145 09/08/2014 [facility] CHEM PANEL Chloride Lvl 106 95 - 109 09/08/2014 [facility] CHEM PANEL Calcium Lvl 8.0 8.5 - 10.5 09/08/2014 [facility] CHEM PANEL Globulin 3.7 2.0 - 4.0 09/08/2014 [facility] CHEM PANEL A/G Ratio 1.0 0.7 - 1.6 09/08/2014 [facility] CHEM PANEL AGAP 12.1 10.0 - 20.0 09/08/2014 [facility] CHEM PANEL B/C Ratio 17 6 - 25 09/08/2014 [facility] CHEM PANEL Magnesium Lvl 2.2 1.8 - 2.4 09/08/2014 [facility] CHEM PANEL Phosphorus 2.7 2.5 - 4.5 09/08/2014 [facility] HEMATOLOGY MCHC 32.5 32.0 - 36.0 09/08/2014 [facility] Hct 28.2 36.0 - 48.0 09/08/2014 [facility] MCV 73.7 80.0 - 98.0 09/08/2014 [facility] MCH 23.9 27.0 - 31.0 09/08/2014 [facility] RDW 17.2 11.5 - 14.5 09/08/2014 [facility] Platelet 144 133 - 450 09/08/2014 [facility] HEMATOLOGY MPV 9.1 7.4 - 10.4 09/08/2014 [facility] RBC 3.83 4.20 - 5.40 09/08/2014 [facility] WBC 5.4 3.7 - 10.4 09/08/2014 [facility] Hgb 9.2 12.0 - 16.0 09/08/2014 [facility] Microcyte 1+ *ABN* (09/08/14 5:03 PM) None Seen 09/08/2014 [facility] HEMATOLOGY Eosinophils # 0.1 0.0 - 0.5 09/08/2014 [facility] HEMATOLOGY Monocytes # 0.4 0.0 - 0.8 09/08/2014 [facility] HEMATOLOGY Lymphocytes # 1.4 1.0 - 5.5 09/08/2014 [facility] HEMATOLOGY Basophils 0.6 0.0 - 1.0 09/08/2014 [facility] HEMATOLOGY Segs-Bands # 3.5 1.5 - 8.1 09/08/2014 [facility] HEMATOLOGY Eosinophils 1.3 0.0 - 4.0 09/08/2014 [facility] Lymphocytes 26.3 20.0 - 40.0 09/08/2014 [facility] HEMATOLOGY Monocytes 8.1 2.0 - 12.0 09/08/2014 [facility] HEMATOLOGY Segs 63.7 45.0 - 75.0 09/08/2014 [facility] Pathology Reports No Data Provided for [...] scribed. Kurt Paz MD On 02/24/2019 09:55:52; [id number] 02/23/2019 [facility] Spine lumbar wo contrast CT Ra [...] described. Jj Bah MD On 02/26/2019 08:19:31; [id number] 02/23/2019 [facility] Abdomen/Pelvis w IV contrast CT Clinical [...] to patient size -Use of iterative reconstruction Theorem ue CT Radiation Dose DLP 1217 mGy-cm [...] Unchanged right adrenal nodule SL: ECROBERT 02/22/2018 [facility] Chest 1view DX Clinical Indica tion: - HTN, vomiting; Comparison: June 18, 2016 FINDINGS: AP chest radiographs shows normal lung volumes without interstitial or airspace opacities, pleural effusions or pneumothorax. The heart size and pulmonary vasculature are normal. The trachea is midline. There are no clinically significant osseous abnormalities noted. IMPRESSION: No chest radiographic evidence of acute cardiopulmonary disease. SL: [id number] 02/22/2018 [facility] Abdomen/Pelvis w IV contrast CT EXAM: [...] right adrenal adenoma. 3. Mild splenomegaly. SL: [id number] 01/17/2017 [facility] Ext Lower Venous Doppler Bilat US [...] examined veins of both lower extremities. SL: [id number] 12/23/2016 [facility] Retroperitoneal Complete US Dashawn lbkrista Name: VERONICA MURRELL : 1970; Age: 46 years y/o Female MR: [id number] Study: Retroperitoneal Complete US Clinical Indication: Renal [...] unremarkable. IMPRESSION: 1. Unremarkable renal U/S SL: [id number] 09/09/2016 [facility] Abdomen/Pelvis wo IV contrast CT Study: [...] cm right adrenal adenoma. SL: DEX-PC 09/08/2016 [facility] Abdomen wo contrast MRI Abdome n [...] function tests recommended. Right adrenal adenoma. SL: [id number] 08/19/2016 [facility] Abdomen/Pelvis wo IV contrast CT CT [...] is present . Anemia. SL: [id number] 08/17/2016 [facility] wo contrast MRI EXAM: MR I BRAIN [...] sequences were not obtained, limiting exam. SL: [id number] 06/19/2016 [facility] Chest 1view DX Exam: Chest X- Ray Clinical Indication: dyspnea Technique: Frontal view of the chest is provided. Findings: Heart and mediastinum are normal. Lungs are clear. There are no pleural effusions. Impression: No acute intrathoracic disease. 06/18/[address] [facility] [address] Study: Rolan fagan wo contrast CT 06/18/2016 11:32 PM CDT Patient Name: VERONICA MURRELL MR: [id number] : 1970; Age: 46 years y/o Female [...] old microangiopathic ischemic change. SL: [id number] 06/18/2016 [facility] ED Abdomen/Pelvis IV contrast only CT [...] cm hypode nse right adrenal nodule. SL: [id number] 06/07/2016 [facility] Abdomen/Pelvis w IV contrast CT EXAM: [...] n odule. 4. Cholecystectomy. SL: [id number] 01/19/2016 [facility] Consultation Notes No Data Provided for This Section Discharge Summaries No Data Provided for This Section History and Physicals No Data Provided for This Section Vital Signs Vital Sign Value Date Comments Source Systolic (mm Hg) 147 12/11/2018 [facility] Diastolic (mm Hg) 98 12/11/2018 [facility] Respitory Rate 16 12/11/2018 [facility] Systolic (mm Hg) 147 12/11/2018 [facility] Diastolic (mm Hg) 98 12/11/2018 [facility] Respitory Rate 15 12/11/2018 [facility] Respitory Rate 16 12/11/2018 [facility] Heart Rate 63 12/11/2018 [facility] Height 167.64 cm 12/06/2018 [facility] Weight 97.784 12/06/2018 [facility] BMI Calculated 34.79 12/06/2018 [facility] Temperature Oral (F) 98.7 F 12/06/2018 [facility] Heart Rate 71 12/06/2018 [facility] Systolic (mm Hg) 148 11/14/2018 [facility] Diastolic (mm Hg) 91 11/14/2018 [facility] Heart Rate 93 11/14/2018 [facility] Height 167.64 cm 11/14/2018 [facility] Weight 90.909 11/14/2018 [facility] BMI Calculated 32.35 11/14/2018 [facility] Respitory Rate 18 02/23/2018 [facility] Temperature [...] F 02/22/2018 [facility] Height 167.64 cm 02/22/2018 [facility] BMI Calculated 29.11 02/22/2018 [facility] Temperature [...] 11/15/2016 [facility] Heart Rate 78 11/15/2016 [facility] Heart Rate 69 11/08/2016 [facility] Temperature Oral (F) 98.1 F 11/08/2016 [facility] Systolic (mm Hg) 113 11/08/2016 [facility] Diastolic (mm Hg) 74 11/08/2016 [facility] Respitory Rate 18 11/08/2016 [facility] Respitory Rate 18 11/02/2016 [facility] Temperature Oral (F) 98.8 F 11/02/2016 [facility] Heart Rate 53 11/02/2016 [facility] Systolic (mm Hg) 170 11/02/2016 [facility] Diastolic (mm Hg) 90 11/02/2016 [facility] BMI Calculated 31.37 10/15/2016 [facility] Weight 88.12 10/15/2016 [facility] Height 167.6 cm 10/15/2016 [facility] Temperature Oral (F) 98.8 F 09/10/2016 [facility] Respitory Rate 18 09/10/2016 [facility] Systolic (mm Hg) 186 09/10/2016 [facility] Diastolic (mm Hg) 97 09/10/2016 [facility] Heart Rate 54 09/10/2016 [facility] Systolic (mm Hg) 141 09/10/2016 [facility] Diastolic (mm Hg) 79 09/10/2016 [facility] Respitory Rate 18 09/10/2016 [facility] Heart Rate 47 09/10/2016 [facility] Temperature Oral (F) 98.3 F 09/10/2016 [facility] Systolic (mm Hg) 112 09/10/2016 [facility] Diastolic (mm Hg) 74 09/10/2016 [facility] Respitory Rate 18 09/10/2016 [facility] Heart Rate 48 09/10/2016 [facility] Temperature Oral (F) 98.0 F 09/10/2016 [facility] BMI Calculated 31.38 09/08/2016 [facility] Weight 88.182 09/08/2016 [facility] Height 167.64 cm 09/08/2016 [facility] Weight 88.182 09/08/2016 [facility] Height 167.64 cm 09/08/2016 [facility] BMI Calculated 31.38 09/08/2016 [facility] Systolic (mm Hg) 130 08/20/2016 [facility] Diastolic (mm Hg) 88 08/20/2016 [facility] Temperature Oral (F) 98.5 F 08/20/2016 [facility] Heart Rate 55 08/20/2016 [facility] Respitory Rate 18 08/20/2016 [facility] Respitory Rate 16 08/20/2016 [facility] Systolic (mm Hg) 119 08/20/2016 [facility] Diastolic (mm Hg) 78 08/20/2016 [facility] Heart Rate 50 08/20/2016 [facility] Respitory Rate 16 08/20/2016 [facility] Systolic (mm Hg) 146 08/20/2016 [facility] Diastolic (mm Hg) 92 08/20/2016 [facility] Heart Rate 52 08/20/2016 [facility] Temperature Oral (F) 98.5 F 08/20/2016 [facility] Temperature Oral (F) 98.7 F 08/20/2016 [facility] Height 167.64 cm 08/17/2016 [facility] Weight 91.364 08/17/2016 [facility] BMI Calculated 32.51 08/17/2016 [facility] Respitory Rate 18 06/20/2016 [facility] Systolic (mm Hg) 145 06/20/2016 [facility] Diastolic (mm Hg) 91 06/20/2016 [facility] Temperature Oral (F) 98.1 F 06/20/2016 [facility] Heart Rate 86 06/20/2016 [facility] Systolic (mm Hg) 112 06/20/2016 [facility] Diastolic (mm Hg) 71 06/20/2016 [facility] Respitory Rate 18 06/20/2016 [facility] Heart Rate 93 06/20/2016 [facility] Temperature Oral (F) 98.4 F 06/20/2016 [facility] Heart Rate 82 06/20/2016 [facility] Temperature Oral (F) 98.1 F 06/20/2016 [facility] Systolic (mm Hg) 122 06/20/2016 [facility] Diastolic (mm Hg) 82 06/20/2016 [facility] Respitory Rate 18 06/20/2016 [facility] Height 165.1 cm 06/19/2016 [facility] Weight 90.2 06/19/2016 [facility] BMI Calculated 33.09 06/19/2016 [facility] Weight 81.818 06/19/2016 [facility] BMI Calculated 30.02 06/19/2016 [facility] Height 165.1 cm 06/19/2016 [facility] Respitory Rate 18 06/07/2016 [facility] Systolic (mm Hg) 137 06/07/2016 [facility] Diastolic (mm Hg) 79 06/07/2016 [facility] Temperature Oral (F) 97.7 F 06/07/2016 [facility] Heart Rate 56 06/07/2016 [facility] Height 167.64 cm 06/07/2016 [facility] Weight 95.455 06/07/2016 [facility] BMI Calculated 33.97 06/07/2016 [facility] Respitory Rate 18 06/07/2016 [facility] Temperature Oral (F) 98 F 06/07/2016 [facility] Heart Rate 60 06/07/2016 [facility] Systolic (mm Hg) 104 06/07/2016 [facility] Diastolic (mm Hg) 71 06/07/2016 [facility] Respitory Rate 20 01/19/2016 [facility] Systolic (mm Hg) 173 01/19/2016 [facility] Diastolic (mm Hg) 88 01/19/2016 [facility] Heart Rate 100 01/19/2016 [facility] Temperature Oral (F) 97.9 F 01/19/2016 [facility] Systolic (mm Hg) 173 01/19/2016 [facility] Diastolic (mm Hg) 97 01/19/2016 [facility] Systolic (mm Hg) 180 01/19/2016 [facility] Diastolic (mm Hg) 96 01/19/2016 [facility] Respitory Rate 20 01/19/2016 [facility] Temperature Oral (F) 99.0 F 01/19/2016 [facility] Heart Rate 100 01/19/2016 [facility] BMI Calculated 35.58 01/19/2016 [facility] Weight 100 01/19/2016 [facility] Height 167.64 cm 01/19/2016 [facility] Heart Rate 121 01/19/2016 [facility] Respitory Rate 18 01/19/2016 [facility] Temperature Oral (F) 99.2 F 01/19/2016 [facility] Systolic (mm Hg) 123 09/09/2014 [facility] Diastolic (mm Hg) 60 09/09/2014 [facility] Temperature Oral (F) 97.9 F 09/09/2014 [facility] Respitory Rate 18 09/09/2014 [facility] Heart Rate 68 09/09/2014 [facility] Weight 109.091 09/08/2014 [facility] BMI Calculated 38.82 09/08/2014 [facility] Height 167.64 cm 09/08/2014 [facility] Temperature Oral (F) 98.6 F 09/08/2014 [facility] Respitory Rate 18 09/08/2014 [facility] Heart Rate 85 09/08/2014 [facility] Systolic (mm Hg) 120 09/08/2014 [facility] Diastolic (mm Hg) 76 09/08/2014 [facility] Encounters Location Location Details Encounter Type Encounter Number Reason For Visit Attending Provider ADM Date DC Date Status Source [facility] [id number] 01 Juan Pablo Graff 09/08/2014 09/09/2014 [facility] Emergency [id number] Garrett Maldonado 01/19/2016 01/19/2016 [facility] Emergency [id number] Juan Pablo Graff 06/07/2016 06/07/2016 [facility] Observation [id number] Amir Ghebranious 06/19/2016 06/20/2016 [facility] Inpatient [id number] Amir Ghebranious 08/17/2016 08/20/2016 [facility] Observation [id number] Amir Ghebranious 09/08/2016 09/10/2016 [facility] Recurring [id number] Jamie Archer 10/18/2016 11/17/2016 [facility] Outpatient [id number] Brie Reeves 12/23/2016 12/24/2016 [facility] Emergency [id number] Lencho Berg 01/17/2017 01/18/2017 [facility] Emergency [id number] Jb Leslye 02/22/2018 02/23/2018 [facility] Neurosurgery [facility] Phone Message [id number] 10/25/2018 10/27/2018 [facility] [id number] [facility] 11/14/2018 [facility] Neurosurgery [facility] Outpatient [id number] [facility] 11/14/2018 11/15/2018 [facility] [id number] [facility] 12/11/2018 [facility] Bedded Outpatient [id number] [facility] 12/11/2018 12/11/2018 [facility] Outpatient [id number] Jb [facility] 02/23/2019 02/24/2019 [facility] Procedures Procedure Code Date Perfomer Comments Source Cholecystectomy [id number] [facility] Hernia repair [id number] [facility] Tasha-en-y gastric bypass [id number] [facility] Colonoscopy [id number] [facility] st Hysterectomy [id number] [facility] st Assessment and Plan Assessment and Plan Date Source Extracted from:Title: Clinical Document Author: Shiva Mcclure MD Date: 09/10/16 Progress Note - Daily [facility] Completed: Sep, 08:30 by Shiva Mcclure [...] QSHIFT 09/08/16 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 TEACHING ATTESTATION Extracted [...] history of kidney stones, herbal supplements, any vhbr-mzr-tyajizu medications, chronic UTIs, chronic obstruction from the [...] All Problems HTN (hypertension) / SNOMED CT 5616230190 / Confirmed Diabetes / SNOMED CT 073848589 / Confirmed Bipolar disorder / SNOMED CT 4966379303 / Confirmed Anxiety / SNOMED CT 3506034067 / Confirmed Nausea / SNOMED CT 6614158863 / Confirmed HLD (hyperlipidemia) / SNOMED CT 34322997 / Confirmed, Active Problems (6) Anxiety Bipolar disorder Diabetes HLD (hyperlipidemia) HTN (hypertension) Nausea Histories Past Medical History: Active HTN (hypertension) (1089401453) Diabetes (395292697) HLD (hyperlipidemia) (31290941) Bipolar disorder (5929913330) Anxiety (2668582209) Family History: High blood pressure Father Mother Heart failure Father Bipolar disorder Brother Type 2 diabetes mellitus Mother Sister Father Myeloma Mother CA - Cancer of ovary Mother Stroke Sister Heart attack Father Hepatitis Brother Kidney stone Brother Deep vein thrombosis Father Back pain Father Procedure history: Cholecystectomy (18936229). Tasha-en-y gastric bypass (6361149888). Hernia repair (85141130). Social History Social and Psychosocial Habits Alcohol [...] atenolol and clonidine. Monitor very closely 09/10/2016 [facility] Extracted from:Title: Clinical Document Author: Shiva Mcclure MD Date: 08/20/16 Progress Note - Daily [facility] Completed: Saturday, AUGUST 20, 2016, 14:41 by Shiva Mcclure MD RM: 306 - 1D, SE C3BS VERONICA MURRELL 46y (: 1970) F Attending: Shiva Mcclure MD Service: Internal Medicine Reason for Admission: INTRACTABLE NAUSEA AND VOMITING Working DRG: Esophagitis, gastroent and misc digest disorders [place] [facility] status: Full Code [Ordered] Current diet: [...] EXAM PLAN and TREATMENT DIAGNOSES and PROBLEMS 3634065 Ready for Discharge (Yes/No)? TEACHING ATTESTATION 08/20/2016 [facility] Plan of Care No Data Provided for This Section Social History Social History Date Source Social History TypeResponse Alcohol Never Employment/School Status: Unemployed. Substance Abuse Use: None. Smoking Status Never smoker; Ready to change: No; Concerns about tobacco use in household: No; Exposure to Tobacco Smoke None; Cigarette Smoking Last 365 Days No; Reg Smoking Cessation Counseling No entered on: 12/11/18 12/06/2018 [facility] Social History TypeResponse Alcohol Never Smoking [...]
[2019-09-11 20:00] VITALS: BP 104/76
--- NOTE | 2019-09-11 20:00 | NUR ---
{null, patient received to room 285 via stretcher. vss. no c/o pain noted. lrg bruise noted to left buttock. bilateral redness and swelling noted to bilateral lower extremities. right > than the left. admit assessment/patient history complete. patient admits to taking her own home medication while in the emergency room. mild sedation noted. patient assisted to bathroom and back to bed. call coughlin placed within reach and patient instructed to call for assistance when needed. patient admits to frequent falls at home. side rails up x 3 and bed alarm on at this time. }
--- NOTE | 2019-09-11 20:56 | NUR ---
{null, Repeat K+ 5.4 called to at this time. new orders to be placed per Dr. Long. }
[2019-09-11] MEDS: FAMOTIDINE 20 MG/2 ML VIAL IV SCH (21:32)
[2019-09-11] MEDS: PIPERACILLIN/TAZO 2.25 GM 50 ML IV SCH (21:34)
[2019-09-11] MEDS ORDERED: SOD POLYSTYRENE SULFONATE SUSP 15 GM/60 ML BTL PO ONE (21:45)
[2019-09-11 22:11] VITALS: BP 104/76
[2019-09-11] MEDS: CLONIDINE HCL 0.1 MG TAB PO SCH (23:45)
[2019-09-12] VITALS (8 sets, daily range): BP systolic 119–182; BP diastolic 87–106
[2019-09-12] MEDS: DEXTROSE 5%/0.9% SOD CHL 1,000 ML IV SCH (03:04)
[2019-09-12 03:49] LABS: BASOPHILS % 0.2 % (0.0-1.0); EOSINOPHILS # (AUTO) 0.1 (0.0-0.4); EOSINOPHILS % 2.3 % (0.0-6.0); HEMATOCRIT 28.5 % (34.2-44.1); HEMOGLOBIN 8.9 g/dL (12.0-16.0); LYMPHOCYTES # (AUTO) 1.4 (1.0-3.2); LYMPHOCYTES % 27.9 % (18.0-39.1); MEAN CORPUSCULAR HEMOGLOBIN 30.4 pg (28-32); MEAN CORPUSCULAR HGB CONC 31.2 g/dL (31-35); MEAN CORPUSCULAR VOLUME 97.3 fL (81-99); MONOCYTES # (AUTO) 0.4 (0.2-0.8); MONOCYTES % 7.9 % (4.4-11.3); NEUTROPHILS # (AUTO) 3.2 (2.1-6.9); NEUTROPHILS % 61.1 % (38.7-80.0); PLATELET COUNT 191 x10e3/uL (140-360); RED BLOOD COUNT 2.93 x10e6/uL (3.6-5.1); RED CELL DISTRIBUTION WIDTH 14.6 % (11.7-14.4)
[2019-09-12] MEDS: PIPERACILLIN/TAZO 2.25 GM 50 ML IV SCH ×4 (04:00→21:08)
--- NOTE | 2019-09-12 04:00 | NUR ---
{null, bp 182/106 hr 70. call placed to Dr. Long re: elevated bp at this time. order received for clonidine 0.1mg po x 1. }
[2019-09-12] MEDS ORDERED: CLONIDINE HCL 0.1 MG TAB PO ONE (04:15)
[2019-09-12 05:05] LABS: ALBUMIN 3.1 g/dL (3.5-5.0); ALBUMIN/GLOBULIN RATIO 1.1 (0.8-2.0); CALCIUM 8.4 mg/dL (8.4-10.2); CHOL/HDL RATIO 4.3 (3.0-3.6); CREATININE, SERUM 1.04 mg/dL (0.57-1.11)
[2019-09-12 06:45] LABS: CREATINE KINASE MB 1.2 ng/mL (0-5.0)
[2019-09-12] MEDS: INSULIN LISPRO 100 UNIT/1 ML 3ML VIAL SQ SCH ×4 (07:30→21:00)
--- NOTE | 2019-09-12 07:30 | NUR ---
{null, PT IN BED SLEEPING NO DISTRESS NTOED,PT EASILY AROUSED. }
[2019-09-12] MEDS: FAMOTIDINE 20 MG/2 ML VIAL IV SCH ×2 (09:02→21:00)
[2019-09-12] MEDS: CLONIDINE HCL 0.1 MG TAB PO SCH ×2 (09:03→17:00)
--- NOTE | 2019-09-12 12:30 | NUR ---
{null, PT STILL VERY SLEEPY DENIES TAKEING OWN MEDICATION }
--- NOTE | 2019-09-12 16:52 | NUR ---
{null, consult [id number] }
[2019-09-12] MEDS: VANCOMYCIN 1GM/NS 250 ML 250 ML IV SCH (17:00)
--- NOTE | 2019-09-12 18:25 | NUR ---
{null, DR ELLIOTT HERE ORDERS WRITTEN.PT IN BED VERY DROWSY. }
--- NOTE | 2019-09-12 19:00 | NUR ---
{null, patient received lying quietly in bed. patient sleeping but easily awakens to name when called. respirations even and unlabored. iv antibiotic infusing without difficulty. pm assessment complete. side rails up, bed alarm on and call coughlin placed within reach. patient instructed to call for assistance when needed. }
[2019-09-12 19:48] LABS: CREATINE KINASE MB 1.2 ng/mL (0-5.0)
--- NOTE | 2019-09-12 19:50 | NUR ---
{null, consent obtained and placed on patients chart at this time. Addendum: 09/13/19 at 0541 by Louise Reid RN consent obtained for picc line at this time and placed on chart. }
--- NOTE | 2019-09-12 20:30 | NUR ---
{null, Right picc line placed at this time. cxr done and placement confirmed. }
--- NOTE | 2019-09-12 20:55 | History and Physical ---
PRIMARY CARE DOCTOR: Dr. Eduard Carlin. CHIEF COMPLAINT: Right calf redness and pain. HISTORY OF PRESENT ILLNESS: This is a 49-year-old female with past medical history of uncontrolled diabetes, hypertension, anxiety, presented to the ER with complaints of right calf redness, swelling, and pain. She was admitted and discharged two days ago after treatment of right lower extremity cellulitis. She was on vancomycin and switched to clindamycin due to AC and sent home with clindamycin p.o., but reports the redness and swelling continue to worsen. So, she went to her PCP who has instructed her to come back to the ER for further evaluation. She reports subjective fever, no nausea or vomiting. She denies any chest pain, shortness of breath, dysuria, diarrhea, or abdominal pain. PAST MEDICAL HISTORY: 1. Hypertension. 2. Uncontrolled diabetes. 3. Chronic back pain. 4. Anxiety. PAST SURGICAL HISTORY: 1. Gastric bypass. 2. Cholecystectomy. 3. Hysterectomy. FAMILY MEDICAL HISTORY: Reports hypertension. SOCIAL HISTORY: She denies any tobacco, alcohol, or illicit drug use. ALLERGIES: NONE. REVIEW OF SYSTEMS: A 10-point review of systems obtained, negative except as stated above. PHYSICAL EXAMINATION: VITAL SIGNS: Temperature 98.3, pulse is 67, respirations are 17, blood pressure 127/87, pulse ox is 99% on room air. GENERAL: No acute distress. HEENT: Normocephalic, atraumatic. LUNGS: Clear. CARDIOVASCULAR: Regular rate and rhythm. Normal S1 and S2. GI: Soft and nontender. MUSCULOSKELETAL: Moves all extremities. NEUROLOGIC: Alert, awake, and oriented x3. SKIN: Right calf redness and swelling, tender to touch. PSYCHIATRIC: Calm. LABORATORY DATA: WBC 7.8, hemoglobin 8.9, hematocrit 28.5, platelets 191, potassium 5.4, sodium 140, BUN 27, creatinine 1.33, total bilirubin 0.2, AST 18, ALT 16. Troponin x3 negative. Triglyceride 133, LDL 76. UA with negative nitrites, small leukocyte esterase, 6-10 wbc's and moderate bacteria. Coronavirus PCR was not detected. IMPRESSION: 1. Right calf cellulitis, failed outpatient therapy with clindamycin. She is started on Zosyn and vancomycin. We will consult ID for further evaluation. Venous Doppler on previous admission last week was negative for DVT. 2. Acute kidney injury. Creatinine 1.33. Improved from last admission. We will continue to monitor and renally dose medications. 3. Hyperkalemia. Kayexalate given x1. Now improved. 4. Hypertension. Stable on her home medications. 5. Uncontrolled diabetes type 2. Hemoglobin A1c was 10.1. We will continue with sliding scale insulin coverage as needed. 6. Chronic back pain. Continue pain medication. 7. Deep vein thrombosis prophylaxis. Heparin subcu. 8. Chronic anemia. Hemoglobin is 8.9. We will continue to monitor closely. We will check iron levels. Dictated by JAVI Mejía Ralph Long MD MY/MODL /[id number]
[2019-09-12] MEDS: ESCITALOPRAM OXALATE 10 MG TAB PO SCH (21:00)
[2019-09-12] MEDS ORDERED: ZOLPIDEM TARTRATE 5 MG TAB PO PRN (21:00)
[2019-09-12] MEDS: HEPARIN SOD (PORCINE) 5,000 UNIT/ML VIAL SC SCH (21:05)
[2019-09-12] MEDS ORDERED: SODIUM CHLORIDE 0.9% 250ML 250 ML ONE (21:34)
--- NOTE | 2019-09-12 23:35 | Consultation ---
DATE OF CONSULTATION: HISTORY OF PRESENT ILLNESS: Ms. Raza is a 49-year-old with history of hypertension, history of obesity, history of psychiatric issue. She was here with cellulitis. She was discharged home where she got better. She was discharged on 09/09. She took clindamycin for few days, came back with worsening redness of the leg. The patient was here with rash on her right calf was itchy, scratched on it, it became red and swollen, came to the emergency room where she was admitted back on September 09 now. She was discharged with oral antibiotic. She is coming back with worsening condition. PAST MEDICAL HISTORY: The patient has history of back pain, anxiety, hypertension, gastric bypass, obesity, cholecystectomy, hysterectomy. ALLERGIES: NKA. SOCIAL HISTORY: There is no smoking, drug abuse, or alcohol abuse. FAMILY HISTORY: Otherwise unremarkable. LABORATORY DATA: Reviewed. Her chart reviewed. Cultures are pending. Her white count is 5.16, hemoglobin of 8.9. Her sodium was 140, potassium 4.0, creatinine 1.04. Liver enzyme within normal limit. MEDICATIONS: She is currently on Zosyn and vancomycin. PHYSICAL EXAMINATION: GENERAL: Currently alert, oriented, does not seem to be in acute distress. VITAL SIGNS: Stable. Currently, afebrile. HEENT: She is not icteric. NECK: Supple. CHEST: Clear. ABDOMEN: Soft. EXTREMITIES: The leg there seem to be redness and swelling. IMPRESSIONS: Cellulitis of the leg, failed oral antibiotic. I agree with vancomycin. We will get a PICC line. Arrange 2 weeks of IV vancomycin 1 g q.12. Weekly CBC, weekly Chem panel, weekly vancomycin trough. Could be discharged once the above arranged. Discussed with the patient. We will follow up as an outpatient. MD KEVIN Morocho/TANESHA /[id number]
[2019-09-13] VITALS (7 sets, daily range): BP systolic 128–180; BP diastolic 88–101
--- NOTE | 2019-09-13 00:47 | Diagnostic Imaging Report ---
EXAM: CHEST XRAY LINE PLACEMENT DATE: 09/12/2019 8:48 PM INDICATION: ^picc pline placement COMPARISON: None FINDINGS: Lines and tubes: Right PICC with the catheter tip projected at the cavoatrial junction. Cardiac silhouette appears enlarged but may be accentuated by portable technique and low lung volumes. No focal pulmonary opacity, pleural effusion or pneumothorax. Mildly prominent central lung markings are likely accentuated by low lung volumes. Upper abdomen unremarkable with surgical clips seen in the right upper quadrant and central abdominal area. No acute bony abnormality to the limits of underpenetrated technique. IMPRESSION: 1. Right PICC extends to the cavoatrial junction. 2. Allowing for low lung volumes no evidence for acute disease in the chest. Signed by: Dr. Nathaniel Brennan M.D. on 09/12/2019 8:59 PM
[2019-09-13] MEDS: PIPERACILLIN/TAZO 2.25 GM 50 ML IV SCH ×4 (03:26→21:36)
--- NOTE | 2019-09-13 05:30 | NUR ---
{null, am labs drawn from right picc line at this time. saline lock to right forearm d/c'd due to redness at insertion site. clean dressing applied to site. }
[2019-09-13 05:50] LABS: BASOPHILS % 0.2 % (0.0-1.0); EOSINOPHILS # (AUTO) 0.1 (0.0-0.4); EOSINOPHILS % 2.3 % (0.0-6.0); HEMATOCRIT 27.3 % (34.2-44.1); HEMOGLOBIN 8.4 g/dL (12.0-16.0); LYMPHOCYTES # (AUTO) 1.2 (1.0-3.2); LYMPHOCYTES % 24.7 % (18.0-39.1); MEAN CORPUSCULAR HGB CONC 30.8 g/dL (31-35); MEAN CORPUSCULAR VOLUME 97.5 fL (81-99); MONOCYTES # (AUTO) 0.3 (0.2-0.8); MONOCYTES % 6.8 % (4.4-11.3); NEUTROPHILS # (AUTO) 3.1 (2.1-6.9); NEUTROPHILS % 65.4 % (38.7-80.0); PLATELET COUNT 182 x10e3/uL (140-360); RED CELL DISTRIBUTION WIDTH 14.8 % (11.7-14.4)
[2019-09-13 06:55] LABS: CALCIUM 8.2 mg/dL (8.4-10.2); CREATININE, SERUM 1.15 mg/dL (0.57-1.11)
--- NOTE | 2019-09-13 07:25 | NUR ---
{null, PT SLEEPING,NO S/S DISCOMFORT. }
[2019-09-13] MEDS: INSULIN LISPRO 100 UNIT/1 ML 3ML VIAL SQ SCH ×4 (07:30→21:00)
[2019-09-13] MEDS: HEPARIN SOD (PORCINE) 5,000 UNIT/ML VIAL SC SCH ×2 (08:30→21:00)
[2019-09-13] MEDS: LACTOBACILLUS ACIDOPHILUS CAPSULE PO SCH ×2 (08:30→17:00)
[2019-09-13] MEDS: CLONIDINE HCL 0.1 MG TAB PO SCH ×2 (08:30→17:22)
[2019-09-13] MEDS: FAMOTIDINE 20 MG/2 ML VIAL IV SCH ×2 (09:00→21:34)
[2019-09-13] MEDS ORDERED: LACTOBACILLUS ACIDOPHILUS PO SCH (09:00)
--- NOTE | 2019-09-13 11:27 | Progress Note ---
DATE: SUBJECTIVE: The patient is seen and evaluated. Available labs and notes reviewed. Discussed with Dr. Barraza. Discussed with the case management. Please refer to chart for more information. Feels better and states that she is ready to go home. REVIEW OF SYSTEMS: No nausea, vomiting, fever, chills, chest pain, or shortness of breath. States some pain in right lower extremity where the cellulitis is. PHYSICAL EXAMINATION: VITAL SIGNS: Temperature 97.5, pulse is 62, respiration 20, and blood pressure 168/100. GENERAL: Alert and oriented, no acute distress. CV: S1 and S2. CHEST: Equal expansion. Clear to auscultation. No acute distress. ABDOMEN: Soft, obese, and nontender. Positive bowel sounds. HEENT: Moist. No pallor. No JVD. EXTREMITIES: Cellulitis of right lower extremity, mostly in a posterior distal end of tib-fib right before the ankles, seems to be firm a little bit, but no significant erythema. MEDICATIONS: Medication list reviewed and from Infectious Disease point of view, the patient is on vancomycin IV and Zosyn. LABORATORY STUDIES: White count of 4.74, hemoglobin 8.4, and platelet 182. Sodium 141, potassium 5, and creatinine 1.15. MICROBIOLOGY: Blood culture negative 24 hours. IMAGING: The patient is status post PICC line. ASSESSMENT AND PLAN: 1. Right lower extremity cellulitis, failed oral antibiotics. 2. Anemia. 3. Obesity. 4. Diabetes. 5. Constipation. 6. The patient currently on vancomycin IV and Zosyn. The patient received PICC line. The patient can be discharged after 2 weeks of IV antibiotics arranged. Discussed with the case management. Order placed for case management to set up IV antibiotics. Please refer to chart for more information. Dictated by Asim Higgins PA-C (Al) Maxwell Barraza MD /MODL /[id number]
--- NOTE | 2019-09-13 12:16 | NUR ---
{null, Received order to set up home IV abx. CM spoke to pt at bedside. Pt states she has never had to do IV abx at home. States she was fine with using any company that takes her insurance. Choice letter signed for [facility] and [facility] and placed in chart. Copy to pt. Pt also stated she was fine with the infusion company setting up home health with any company that takes her insurance. Referral faxed to [facility] at [phone] / . Yamilex Starkey with [facility] was notified of referral. }
--- NOTE | 2019-09-13 15:49 | NUR ---
{null, Pt's copay is $570.80 for 14 days. Pt states cannot afford it. Wants to go to SNF. MOLLY Garcia notified. }
[2019-09-13] MEDS: VANCOMYCIN 1GM/NS 250 ML 250 ML IV SCH (17:19)
--- NOTE | 2019-09-13 17:23 | NUR ---
{null, PT UP IN BED VERY SLEEPY ,DENIES PAIN. }
--- NOTE | 2019-09-13 17:49 | Progress Note ---
DATE: 09/13/2019 CONSULTANTS: Dr. Barraza with Infectious Disease. CHIEF COMPLAINT: Right lower extremity redness, swelling, and pain. SUBJECTIVE: The patient reports redness and swelling in the lower extremity is improving some. PICC line has been placed and they cannot afford home infusion. So, care home facility placement pending. She denies any chest pain, shortness of breath, fever, chills, nausea, or vomiting. PHYSICAL EXAMINATION: VITAL SIGNS: Temperature 97.8, pulse is 65, respirations 16, blood pressure 183/101, pulse ox is 100% on room air. GENERAL: No acute distress. HEENT: Normocephalic, atraumatic. LUNGS: Clear to auscultation. CARDIOVASCULAR: Regular rate and rhythm. GI: Soft and nontender. Obese. MUSCULOSKELETAL: Moves all extremities. NEUROLOGIC: Alert, awake, and oriented x3. SKIN: Right calf redness and swelling. LABORATORY DATA: WBC 4.74, hemoglobin 8.4, hematocrit 27.3, platelet 182. Sodium 141, potassium 5.0, CO2 21, anion gap 13, BUN is 24, creatinine 1.15. Estimated GFR is 50. Iron 20. Blood cultures negative. IMPRESSION: 1. Right calf cellulitis, failed outpatient therapy with clindamycin, Bactrim and Keflex x2. She is started on vancomycin and Zosyn. ID consulted. Venous Doppler on previous admission was negative. SNF placement for two weeks of IV antibiotics. 2. Acute kidney injury. Creatinine 1.15. We will continue to monitor and renally dose her medications. 3. Hyperkalemia. Now resolved. 4. Hypertension. Continue her home medications and add p.r.n. clonidine. 5. Uncontrolled diabetes type 2. Last hemoglobin A1c was 10.1. Continue sliding scale insulin coverage. Diet education emphasized. 6. Chronic back pain. Continue pain medication as needed. 7. Chronic anemia. Hemoglobin 8.9. Iron low at 20. We will give Venofer x1. 8. Deep vein thrombosis prophylaxis. Heparin subcu. PLAN: Plan is to continue IV antibiotics, case management has been consulted for SNF placement for IV antibiotics. Dictated by JAVI Mejía Ralph Long MD MY/MODL /[id number]
[2019-09-13] MEDS ORDERED: IRON SUCROSE 100 MG in SODIUM CHLORIDE 0.9% 100 ML 100 ML IV ONE (18:00)
--- NOTE | 2019-09-13 19:10 | NUR ---
{null, Receive patient awake, not in distress, call light within easy reach. Bed alarm activated, advised to call anytime for assistance, will continue to monitor closely }
[2019-09-13] MEDS: ESCITALOPRAM OXALATE 10 MG TAB PO SCH (21:34)
[2019-09-14] VITALS (7 sets, daily range): BP systolic 121–186; BP diastolic 73–109
--- NOTE | 2019-09-14 02:05 | NUR ---
{null, patient refused bed alarm on, educated re fall precaution }
[2019-09-14] MEDS: PIPERACILLIN/TAZO 2.25 GM 50 ML IV SCH ×3 (04:00→14:54)
--- NOTE | 2019-09-14 07:00 | NUR ---
{null, Received patient lying in bed with eyes open. Respiration even and unlabored without SOB. Call light in reach. }
--- NOTE | 2019-09-14 07:03 | NUR ---
{null, Received patient lying in bed with eyes closed. Respiration even and unlabored without SOB. Call light in reach. }
--- NOTE | 2019-09-14 07:25 | NUR ---
{null, walking rounds done with dayshift RN, call light within easy reach }
[2019-09-14 07:27] LABS: ANION GAP 12.5 mmol/L (8-16); CALCIUM 8.3 mg/dL (8.4-10.2); CREATININE, SERUM 1.08 mg/dL (0.57-1.11); POTASSIUM 4.5 mmol/L (3.5-5.1)
[2019-09-14] MEDS: INSULIN LISPRO 100 UNIT/1 ML 3ML VIAL SQ SCH ×4 (07:30→21:00)
--- NOTE | 2019-09-14 08:11 | NUR ---
{null, PT GIVEN FACILITIES IN NETWORK IN AREA, SIGNED CHOICE FOR [facility], COMPLETED COVID FORM, RTF AND PASRR, FILED IN CHART AND PUT A COPY IN CLINICALS AND FAXED TO [facility]. GAVE IMM SIGNED FILED IN CHART AND GAVE COPY TO PATIENT FOR HER RECORDS. }
[2019-09-14] MEDS: FAMOTIDINE 20 MG/2 ML VIAL IV SCH ×2 (09:43→20:59)
[2019-09-14] MEDS: CARVEDILOL 3.125 MG TAB PO SCH ×2 (09:44→16:58)
[2019-09-14] MEDS: CLONIDINE HCL 0.1 MG TAB PO SCH ×2 (09:44→16:57)
[2019-09-14] MEDS: HEPARIN SOD (PORCINE) 5,000 UNIT/ML VIAL SC SCH ×2 (09:46→21:00)
[2019-09-14] MEDS: LACTOBACILLUS ACIDOPHILUS CAPSULE PO SCH ×2 (09:47→16:58)
--- NOTE | 2019-09-14 10:21 | NUR ---
{null, [facility] DISCHARGE INFORMATION PATIENT HAS BEEN ACCEPTED TO: NAME: [facility] ADDRESS: [address] [place] [address] ACCEPTING CONE TENDER: JOHNATHAN EWING MD: TRISTEN ROOM: [address] NURSE CALL REPORT TO: [phone] IMM SIGNED AND OBTAINED (if applicable): IMM PACKET AT NURSES STATION }
--- NOTE | 2019-09-14 12:53 | Progress Note ---
DATE: SUBJECTIVE: The patient is seen and evaluated. Available labs and notes reviewed. Discussed with the patient. REVIEW OF SYSTEMS: No nausea, vomiting, fever, chills, chest pain, shortness of breath, headache, rash, or dysuria. Right lower extremity pain improved and ambulates easily. PHYSICAL EXAMINATION: VITAL SIGNS: Temperature 97.6, pulse 66, respirations 20, and blood pressure 159/109. GENERAL: Alert and oriented, in no acute distress. CV: S1, S2. CHEST: Equal expansion. Clear to auscultation. No acute distress. ABDOMEN: Soft and nontender. No distention. HEENT: Moist. No pallor. No JVD. EXTREMITIES: Right lower extremity cellulitis seems improved, stable, slightly firm and mild pink color. MEDICATIONS: Medication list reviewed. The patient is on Zosyn and vancomycin IV from Infectious Disease point of view. LABORATORY STUDIES: No new CBC from today. BMP showed sodium of 139, potassium of 4.5, creatinine of 1.08, which has improved from 1.15. MICROBIOLOGY: Blood cultures negative for 48 hours. IMAGING: No new radiology studies available. The patient is status post PICC line placement. ASSESSMENT AND PLAN: 1. Cellulitis of the right lower extremity, failed outpatient oral antibiotics. 2. Obesity. 3. Debility. 4. Diabetes. 5. Anemia. Order for case management placed, vancomycin IV for 2 weeks. Appropriate labs including CBC, BMP, and vancomycin trough every Tuesday and report all the labs to the MD. The patient to follow up with Dr. Barraza in a couple of weeks. Further management of this patient is based on daily findings on laboratory and physical examination. Please refer to chart for more information. Discussed with Dr. Barraza in detail. Dictated by Asim Higgins PA-C (Al) Maxwell Barraza MD /MODL /[id number]
--- NOTE | 2019-09-14 16:55 | NUR ---
{null, Report given to BEN Currie in [facility]. }
[2019-09-14] MEDS: VANCOMYCIN 1GM/NS 250 ML 250 ML IV SCH (16:58)
[2019-09-14] MEDS ORDERED: ONDANSETRON HCL 4 MG ORAL DISINTEGRATING TAB PO PRN (18:30)
--- NOTE | 2019-09-14 20:00 | NUR ---
{null, RECEIVED REPORT FROM [facility] NURSE TOLD PT IS READY TO TRANSFER TO [facility] .PT RESTING NO ACUTE DISTRESS NOTED WAITING FOR THE AMBULANCE TO TRANSFER }
[2019-09-14] MEDS: ESCITALOPRAM OXALATE 10 MG TAB PO SCH (20:59)
--- NOTE | 2019-09-15 04:47 | Discharge Summary ---
PRIMARY CARE PHYSICIAN: Dr. Eduard Carlin. FINAL DISCHARGE DIAGNOSES: 1. Recurrent right calf cellulitis with failed outpatient therapy x2. 2. Acute kidney injury. 3. Hyperkalemia. 4. Hypertension. 5. Uncontrolled diabetes type 2. 6. Chronic back pain. 7. Chronic anemia. CONSULTANTS: Dr. Barraza, Infectious Disease. 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 HISTORY: Per HPI. HOSPITAL COURSE: This is a 49-year-old female, who presented with right lower extremity edema, redness, and pain. She was recently discharged home after being treated with IV vanc and p.o. clindamycin. She came with increased swelling and redness. Given her history of uncontrolled diabetes and recurrent failed outpatient treatment, IV antibiotics were recommended per Infectious Disease. PICC line was inserted and we will transfer to senior care facility for IV vanc and Zosyn to complete 14 days of treatment. PHYSICAL EXAMINATION: VITAL SIGNS: Temperature 97.5, pulse is 60, respirations 18, blood pressure 186/106, pulse ox 100% on room air. GENERAL: No acute distress. CARDIOVASCULAR: Regular rate and rhythm. LUNGS: Clear to auscultation. GI: Soft and nontender. MUSCULOSKELETAL: Moves all extremities. SKIN: Right lower extremity redness and swelling with improving tenderness. NEUROLOGIC: Alert, awake, and oriented x3. CONDITION AT DISCHARGE: Improved and stable. DISCHARGE MEDICATIONS: Please see medication reconciliation list. FOLLOWUP: Follow up with Dr. Barraza in 1 to [address] Carlin thereafter. TOTAL DISCHARGE TIME: 32 minutes. Dictated by JAVI Mejía Ralph Long MD MY/MODL /[id number] cc: Eduard Carlin
== END 2019-09-14 21:00 | DRG 603 ==
LOC: ER 14:45 → ERHOLD 17:01 → MED/SURG3 19:28
PROVIDERS: ADMIT Internal Medicine; ATTEND Internal Medicine
PROC: 02HV33Z Insertion of Infusion Device into Superior Vena Cava, Percutaneous Approach (ICD-10-PCS; principal; 2019-09-12)
PROC: B548ZZA Ultrasonography of Superior Vena Cava, Guidance (ICD-10-PCS; 2019-09-12)
DX: L03.115 Cellulitis of right lower limb (principal); N17.9 Acute kidney failure, unspecified; I10 Essential (primary) hypertension; E87.5 Hyperkalemia; E11.9 Type 2 diabetes mellitus without complications; Z98.84 Bariatric surgery status; M54.9 Dorsalgia, unspecified; D64.9 Anemia, unspecified; F41.9 Anxiety disorder, unspecified; Z82.49 Family history of ischemic heart disease and other diseases of the circulatory system; Z90.49 Acquired absence of other specified parts of digestive tract; E66.9 Obesity, unspecified; K59.00 Constipation, unspecified; Z79.84 Long term (current) use of oral hypoglycemic drugs; Z11.59 Encounter for screening for other viral diseases; Z68.29 Body mass index [BMI] 29.0-29.9, adult
CPT/HCPCS: 36415; 36569; 71045; 74470; 80048; 80053; 80061; 81001; 82550; 82553; 82948; 83540; 84132; 84484; 85025; 87040; 87635; 97139; 99284; J1644; J1756; J2405; J2543; J3370; J7030; J7042; J7050

== ENCOUNTER → 2021-01-05 | Outpatient (CLI) | payer MEDICARE ==
[~2021-01-05] MED LIST changes: +IOPAMIDOL 370 MG/ML 200 ML INFUS..BTL INJ ONE; +SODIUM CHLORIDE 0.9% 50ML 50 ML ONE
[2021-01-05 15:03] LABS: CREATININE, SERUM 0.99 mg/dL (0.57-1.11)
== END ==
LOC: CT 14:05
PROVIDERS: ATTEND Family Medicine
DX: R22.2 Localized swelling, mass and lump, trunk (principal); R63.4 Abnormal weight loss
CPT/HCPCS: 36415; 71260; 82565; 84520; Q9967

== ENCOUNTER → 2021-01-16 | Outpatient (CLI) | payer MEDICARE ==
[~2021-01-16] MED LIST changes: -IOPAMIDOL 370 MG/ML 200 ML INFUS..BTL INJ ONE; -SODIUM CHLORIDE 0.9% 50ML 50 ML ONE
== END ==
LOC: CT 08:59
PROVIDERS: ATTEND Internal Medicine Cardiovascular Disease
DX: R06.02 Shortness of breath (principal); R07.9 Chest pain, unspecified; R60.0 Localized edema

== ENCOUNTER → 2021-03-11 | Outpatient (CLI) | payer MEDICARE ==
[~2021-03-11] MED LIST changes: +IOPAMIDOL 370 MG/ML 200 ML INFUS..BTL INJ ONE; +SODIUM CHLORIDE 0.9% 500ML 500 ML ONE; +SODIUM CHLORIDE 0.9% 50ML 50 ML ONE
[2021-03-11 15:55] LABS: CREATININE, SERUM 1.45 mg/dL (0.57-1.11)
== END ==
LOC: CT 14:22
PROVIDERS: ATTEND Family Medicine
DX: E27.9 Disorder of adrenal gland, unspecified (principal)
CPT/HCPCS: 36415; 74178; 82565; 84520; 96360; J7040; Q9967

== ENCOUNTER → 2021-08-13 | Outpatient (CLI) | payer MEDICARE ==
[~2021-08-13] MED LIST changes: +DIATRIZOATE MEGL/DIATRIZOA SOD 30 ML BTL PO ONE; +IOPAMIDOL 370 MG/ML 100 ML INFUS..BTL INJ ONE; -IOPAMIDOL 370 MG/ML 200 ML INFUS..BTL INJ ONE; -SODIUM CHLORIDE 0.9% 50ML 50 ML ONE
[2021-08-13 09:56] LABS: CREATININE, SERUM 1.46 mg/dL (0.57-1.11)
== END ==
LOC: CT 08:54
PROVIDERS: ATTEND Internal Medicine Gastroenterology
DX: R11.2 Nausea with vomiting, unspecified (principal); R10.13 Epigastric pain; D50.9 Iron deficiency anemia, unspecified; Z98.84 Bariatric surgery status
CPT/HCPCS: 36415; 74177; 82565; 84520; 96360; J7040; Q9967

== ENCOUNTER → 2024-03-19 | Day surgery (SDC) | payer MEDICARE ==
[~2024-03-19] MED LIST changes: +AMLODIPINE BESY10 MG PO; +DAPAGLIFLOZIN5 MG PO; -DIATRIZOATE MEGL/DIATRIZOA SOD 30 ML BTL PO ONE; +FENTANYL CITRATE/PF 100MCG/2 ML INJ ONE; +GLUCOTROL XL10 MG PO; +HYOSCYAMINE SULFATE 0.5 MG/ML INJ ONE; -IOPAMIDOL 370 MG/ML 100 ML INFUS..BTL INJ ONE; +LEVOTHYROXINE50 MCG PO; +LIDOCAINE HCL 2% LOCAL INJ 5 ML SDV VIAL INJ ONE; +MIDAZOLAM HCL 2 MG/2 ML VIAL ONE; +MOUNJARO12.5 MG/0.; +OLMESARTAN-HCT1 EAC2 PO; +PROPOFOL IV EMULSION 10 MG/ML 20 ML VIAL ONE; +PROTONIX20 MG PO; +ROSUVASTATIN CA10 MG PO; -SODIUM CHLORIDE 0.9% 500ML 500 ML ONE; +TENORMIN100 MG PO; +VITAMIN D250 MCG
[2024-03-19 12:45] VITALS: BP 125/80; PULSE 88; RESP 17; TEMP 97.3; O2SAT 99
[2024-03-19] MEDS: LACTATED RINGER'S 1,000 ML ONE (13:21)
== END | disposition home or self-care (01) ==
LOC: OR 08:56
PROVIDERS: ATTEND Internal Medicine Gastroenterology
DX: Z12.11 Encounter for screening for malignant neoplasm of colon (principal); D12.5 Benign neoplasm of sigmoid colon; K57.30 Diverticulosis of large intestine without perforation or abscess without bleeding; K64.8 Other hemorrhoids; K21.9 Gastro-esophageal reflux disease without esophagitis; E11.9 Type 2 diabetes mellitus without complications; I10 Essential (primary) hypertension; E78.5 Hyperlipidemia, unspecified; E03.9 Hypothyroidism, unspecified; G89.29 Other chronic pain; F41.9 Anxiety disorder, unspecified; F32.A Depression, unspecified; Z88.8 Allergy status to other drugs, medicaments and biological substances; Z01.810 Encounter for preprocedural cardiovascular examination; Z79.84 Long term (current) use of oral hypoglycemic drugs; Z79.85 Long-term (current) use of injectable non-insulin antidiabetic drugs; Z79.899 Other long term (current) drug therapy
CPT/HCPCS: 45385; 93005; J1980; J2003; J2250; J2704; J3010; J7121; 45378

== ENCOUNTER 2024-07-29 11:15 | Emergency (ER) | payer MEDICARE ==
[~2024-07-29] VITALS: Ht 167.6 cm; Wt 72.1 kg
[~2024-07-29 11:15] MED LIST changes: -FENTANYL CITRATE/PF 100MCG/2 ML INJ ONE; -HYOSCYAMINE SULFATE 0.5 MG/ML INJ ONE; -LIDOCAINE HCL 2% LOCAL INJ 5 ML SDV VIAL INJ ONE; -MIDAZOLAM HCL 2 MG/2 ML VIAL ONE; -PROPOFOL IV EMULSION 10 MG/ML 20 ML VIAL ONE
[2024-07-29 11:26] VITALS: TEMP 97.2
[2024-07-29] MEDS: SODIUM CHLORIDE 0.9% 1000ML 1,000 ML IV ONE (11:39)
[2024-07-29] MEDS: KETOROLAC TROMETHAMINE 30 MG/ML VIAL IV STA (11:59)
[2024-07-29 13:06] VITALS: PULSE 57; RESP 16
[2024-07-29 13:26] VITALS: PULSE 56; RESP 16; O2SAT 100
[2024-07-29] MEDS ORDERED: AMOXICILLIN875 MG PO (13:28)
[2024-07-29 14:02] VITALS: BP 113/60
== END 2024-07-29 14:01 | disposition home or self-care (01) ==
LOC: FSED 11:20
DX: H66.91 Otitis media, unspecified, right ear (principal); I10 Essential (primary) hypertension; E11.65 Type 2 diabetes mellitus with hyperglycemia; E03.9 Hypothyroidism, unspecified; G47.00 Insomnia, unspecified; M54.9 Dorsalgia, unspecified; G89.29 Other chronic pain; F41.9 Anxiety disorder, unspecified; F32.A Depression, unspecified
CPT/HCPCS: 80053; 84484; 96374; 99283; J1885; J7030